=== PATIENT | male | born 1955 | race Caucasian/White ===

== ENCOUNTER → 2020-08-05 09:44 | Outpatient (BNVA) | payer MEDICARE, SELFPAY | PROVIDERS: PCP Internal Medicine; Referring Provider Internal Medicine; Visit Provider Internal Medicine Gastroenterology | DX: Z76.89 Persons encountering health services in other specified circumstances (principal) ==

== ENCOUNTER → 2020-08-08 10:10 | Outpatient (BNVA) | payer MEDICARE, SELFPAY | PROVIDERS: PCP Internal Medicine; Visit Provider Student in an Organized Health Care Education/Training Program | DX: Z13.89 Encounter for screening for other disorder (principal) | CPT/HCPCS: Q3014 ==

== ENCOUNTER → 2020-10-21 09:09 | Outpatient (BNVA) | payer MEDICARE, SELFPAY | PROVIDERS: PCP Internal Medicine; Visit Provider Internal Medicine Gastroenterology | CPT/HCPCS: Q3014 ==

== ENCOUNTER → 2021-06-12 11:19 | Outpatient (BNVA) | payer MEDICARE, SELFPAY | PROVIDERS: PCP Internal Medicine; Visit Provider Internal Medicine Gastroenterology | CPT/HCPCS: Q3014 ==

== ENCOUNTER → 2021-11-20 08:38 | Outpatient (BNVA) | payer MEDICARE, SELFPAY | PROVIDERS: PCP Internal Medicine; Visit Provider Internal Medicine Gastroenterology | DX: K86.1 Other chronic pancreatitis (principal); K55.9 Vascular disorder of intestine, unspecified | CPT/HCPCS: 99212 ==

== ENCOUNTER → 2022-05-21 08:44 | Outpatient (BNVA) | payer MEDICARE, SELFPAY | PROVIDERS: PCP Internal Medicine; Visit Provider Internal Medicine Gastroenterology | DX: R68.81 Early satiety (principal) | CPT/HCPCS: 99212 ==

== ENCOUNTER → 2022-07-13 08:42 | Outpatient (REF) | payer MEDICARE, SELFPAY ==
--- NOTE | ~2022-07-13 | NM_ITS ---
EXAMINATION: RADIONUCLIDE SOLID FOOD GASTRIC EMPTYING 4-HOUR STUDY CLINICAL INFORMATION: Early satiety. COMPARISON: No previous gastric emptying study is available for comparison. TECHNIQUE: A standard meal consisting of 4 oz of Egg Beaters brand equivalent tagged with 1 mCi Tc-99m Sulfur Colloid, 8 oz water and 2 slices of toast with jelly was administered orally to the patient. Images were obtained using a dual head gamma camera in the anterior and posterior projections over of the stomach immediately post ingestion and at hourly intervals up to 4 hours post ingestion. The anterior and posterior counts at each time interval were averaged using the geometric mean and expressed as percentage of the immediate post ingestion counts. FINDINGS: There is good visualization of activity in the stomach immediately post ingestion. As the study progresses, there is good clearance of activity from the stomach and visualization of progressively increasing small bowel activity. By the end of the study, there is almost no retention noted in the stomach. Retention in the stomach at each time interval was: 1 hour 78% (normal 37%-90%) 2 hours 60% (normal 30%-60%) 3 hours 24% 4 hours 2% (normal 0%-10%) NM/NM gastric emptying study IMPRESSION: Normal 4-hour solid food gastric emptying study.
== END ==
LOC: HO.NUCMED 08:42
PROVIDERS: Visit Provider Internal Medicine Gastroenterology
DX: R68.81 Early satiety (principal)
CPT/HCPCS: 78264; A9541

== ENCOUNTER → 2022-09-13 07:38 | Outpatient (REF) | payer MEDICARE, SELFPAY ==
--- NOTE | ~2022-09-13 | NM_ITS ---
EXAMINATION: NM PARATHYROID SCAN CLINICAL INFORMATION: Hyperparathyroidism. COMPARISON: None TECHNIQUE: A double radionuclide study of the thyroid bed region and upper chest in multiple projections was performed 4 hours after the oral administration of 0.963 microcuries I-123 sodium iodide/3 capsules and immediately following the intravenous administration of 30 mCi Tc-99m sestamibi. Repeat imaging was performed 2 hours later. The iodide images were electronically subtracted from the sestamibi images using different weighting factors. FINDINGS: On solder technician imaging, there is normal activity seen in both thyroid lobes with significant background activity. On iodide imaging, there is no activity seen in the thyroid gland due to patient being on levothyroxine for 38 years and was discontinued only for 5 days. NM/ME parathyroid IMPRESSION: 1. Suboptimal exam. No activity seen in thyroid gland with iodine capsule ingestion due to patient being on long-term levothyroxin. 2. On technetium imaging, there is significant activity seen in the thyroid gland and significant background activity seen as well. A parathyroid adenoma cannot be excluded on this exam. Recommend discontinuation of thyroxine for at least 3-4 weeks prior to performing a second exam. Other alternative with ultrasound imaging can be performed.
== END ==
LOC: HO.NUCMED 07:38
PROVIDERS: PCP Internal Medicine; Visit Provider Internal Medicine Endocrinology, Diabetes & Metabolism
DX: E21.2 Other hyperparathyroidism (principal)
CPT/HCPCS: 78070; A9500; A9516

== ENCOUNTER 2022-10-19 09:37 | Day surgery (SDC) | payer MEDICARE, SELFPAY ==
[2022-10-12 14:55] VITALS: BMI 28.8
[2022-10-19 09:55] VITALS: BMI 28.1
[2022-10-19 10:17] LABS: INTERNATIONAL NORM RATIO 1.1 (0.9-1.1); Prothrombin Time 12.3 SEC (10.0-13.1)
[2022-10-19] MEDS: Lactated Ringers 1,000 ML 50 ML IVCONT (10:30)
--- NOTE | 2022-10-19 10:44 | MHC.SHP ---
Pre-Procedural Eval Section A Date of Service: 10/19/22 Section B Chief Complaint: history of colonic polyps Relevant Family History (Specify if Yes): No Relevant Social History: Other (specify) (THC) Present Medications: see Short Stay Collaborative assessment Medical History: Significant History (PAd, CAD , chornic pancreatitis ) History of Previous Operations: Relevant previous surgery/procedure and date(s) (H/O angioplasty H/O Spinal surgery History of colonoscopy Hx of knee surgery) Allergies: Allergies Allergy/AdvReac Type Severity Reaction Status Date / Time amoxicillin [From Augmentin] Allergy Intermediate Nausea and Verified 10/12/22 14:44 Vomiting clavulanic acid Allergy Intermediate Nausea and Verified 10/12/22 14:44 [From Augmentin] Vomiting Review of Systems Sugical H&P ROS: Negative: Constitution, Cardiovascular, Respiratory, Neurological, Psychiatric, Hem-Onc, Allergic/Immunologic, Gastrointestinal, Genitourinary, Musculoskeletal, Integumentary, Endocrine and Eyes/Ears/Nose/Throat Exam Surgical H&P Exam: Normal: HEENT, Normal: Heart, Normal: Lungs, Normal: Extremities, Normal: Abdomen, Normal: Skin and Normal: Neurological Plan Diagnosis/Plan: Unchanged I have reviewed the history and physical and performed a pertinent physical examination on my patient. No changes have occurred unless specified. Time Spent With Patient Time: Total time managing care of this patient today ____ minutes.
--- NOTE | 2022-10-19 10:47 | P.CONAN_ITS ---
[facility] Active Problems Active Problems: All Active Problems (Updated 10/12/22 @ 15:40 by Lilia Jaimes RN) Chronic pancreatitis (Acute) Osteoporosis (Acute) Past Medical History Medical History A-fib CAD (coronary artery disease) Constipation Diabetes Elevated cholesterol GERD (gastroesophageal reflux disease) History of ischemic colitis HTN (hypertension) Hx of aortic aneurysm Hx of bladder cancer Hx of myocardial infarction Hx of supraventricular tachycardia Hypothyroidism Meniere's disease Missing teeth, acquired Nausea Osteoporosis PVD (peripheral vascular disease) Family History Family History Father Hx of cancer of lung Mother History of pancreatic cancer Surgical History Surgical History H/O angioplasty H/O Spinal surgery History of colonoscopy History of femoropopliteal bypass History of lumbar fusion History of transurethral resection of bladder tumor (TURBT) Hx of cystoscopy Hx of fusion of cervical spine Hx of knee surgery S/P peripheral artery angioplasty with stent placement S/P TURP (transurethral resection of prostate) Stented coronary artery History of Problems with Anesthesia: No Social History Social History Household Members: Other Household Members Other:: dog Are you a primary child caregiver private home to a significant other at home: No Do you presently have visiting nurse or other home services: No Alcohol intake: current Alcohol intake frequency: does not drink Patient Tobacco Use Status: Current everyday Tobacco user Tobacco use type: Cigarette Cigarettes Per Day: 3 Use of substances other than those prescribed or required for medical reasons: Yes Substance Use Type: Marijuana Substance Use Frequency: Occasionally Have you been hit, kicked, punched, or otherwise hurt by someone within the past year? If so, by whom?: No Are you DNR?: No Advance Directives: No Advance Directives Information Provided: Yes Advance Directives on File: No Recently lost weight without trying: No Poor oral hygiene: Yes (many missing teeth) Meds Allergies Allergy/AdvReac Type Severity Reaction Status Date / Time amoxicillin [From Augmentin] Allergy Intermediate Nausea and Verified 10/12/22 14:44 Vomiting clavulanic acid Allergy Intermediate Nausea and Verified 10/12/22 14:44 [From Augmentin] Vomiting Active Medications: Current Medications Lactated Ringer's (Lr) 1,000 mls @ 50 mls/hr IVCONT .Q20H JESS Last Admin: 10/19/22 10:30 Dose: 50 mls/hr Home Medications Medication Instructions Recorded Confirmed Last Taken Type atorvastatin 40 mg tablet 40 mg PO BEDTIME 08/08/20 10/12/22 Unknown History insulin aspar prt-insulin aspart sliding scale dose subcut 08/08/20 Unknown History 100 unit/mL (70-30) subcutaneous USEASDIRECTD soln (Novolog Mix 70-30 U-100 Insuln) insulin glargine 100 unit/mL (3 27 unit subcut BEDTIME 08/08/20 10/12/22 Unknown History mL) subcutaneous pen (Lantus Solostar U-100 Insulin) lorazepam 0.5 mg tablet (Ativan) 0.5 mg PO BEDTIME PRN Anxiety 08/08/20 10/12/22 Unknown History tamsulosin 0.4 mg capsule (Flomax) 0.4 mg PO DAILY@1700 08/08/20 10/12/22 Unknown History warfarin 5 mg tablet 5 mg PO DAILY 08/08/20 10/12/22 Unknown History finasteride 5 mg tablet 5 mg PO DAILY 11/20/21 10/12/22 Unknown History nystatin 100,000 unit/gram topical 1 appl topical BID 11/20/21 Unknown History cream diltiazem HCl 360 mg 360 mg PO BEDTIME 05/21/22 10/12/22 Unknown History capsule,extended release 24 hr empagliflozin 10 mg tablet 25 mg PO DAILY 05/21/22 10/12/22 Unknown History (Jardiance) levothyroxine 125 mcg tablet 150 mcg PO DAILY 05/21/22 10/12/22 Unknown History metoprolol tartrate 50 mg tablet 50 mg PO BID 05/21/22 10/12/22 Unknown History Viokase 10/12/22 10/12/22 Unknown History aspirin 81 mg tablet,delayed 81 mg PO DAILY 10/12/22 10/12/22 Unknown History release calcium citrate 200 mg (950 mg) 800 mg PO DAILY 10/12/22 10/12/22 Unknown History tablet enoxaparin 120 mg/0.8 mL mg 10/12/22 Unknown History subcutaneous syringe lisinopril 5 mg tablet mg 10/12/22 10/12/22 Unknown History ondansetron HCl 4 mg tablet 4 mg PO Q8H PRN Nausea 10/12/22 10/12/22 Unknown History Exam Exam Date and Time: October 19, 2022 1047 Height,Weight and Vital Signs: Height 5 ft 8 in Weight 83.915 kg Pertinent Lab Results Pertinent Lab Results: Laboratory Tests 10/19/22 09:53 PT 12.3 INR 1.1 Airway Mallampati Class: III (Missing left upper incisor) TM Dist: >3cm Neck ROM: Full Loose/Missing/Broken Teeth: Yes and Upper Heart: irreg irregular rhythm Lungs: CTA Assessment and Plan Assessment Anesthesia Assessment: Anesthesia Plan Discussed and Chart Reviewed Final Anesthetic Review History of Problems with Anesthesia: No NPO: Yes ASA Class: III Final Preanesthetic Review: Meds/Allgs Chart Reviewed, Consent Obtained/Reviewed and Anes Risks/Benef Reviewed Patient Risk: Intermediate Procedure Risk: Low Anesthetic Plan Anesthetic Plan: MAC: Disposition: Standard PACU
--- NOTE | 2022-10-19 10:58 | P.OP_ITS ---
Operative Note Operative Note Date of Service: 10/19/22 Narrative: Operative Information Procedure Description: Colonoscopy Indication: hx of colon polyps Anesthesia: MAC COLONOSCOPY Instrument: Olympus variable stiffness pediatric scope 190L Colonoscopy Monitoring: Vital signs and clinical assessment, continuous EKG monitoring, Pulse oximetry, Carbon Dioxide monitoring and blood pressure monitoring were done throughout the procedure. Colon withdrawal time was 13 minutes. Procedure: The patient was placed in the left lateral decubitis position and pre-procedure medications were administered. After a digital rectal examination of the ano-rectum, the video colonoscope was inserted into the rectum and advanced through the colon to the cecum/TI. The colonoscope was slowly withdrawn in a retrograde panoramic fashion and the colon mucosa was carefully examined including a retroflexed view of the rectum. Findings and interventions are described below. Procedure Difficulty: moderate Findings: Terminal Ileum-normal Cecum:normal Ascending Colon: few diverticula seen Transverse Colon -normal Descending Colon:normal Sigmoid Colon: moderate severe diverticulosis Rectum: Retroflexion with medium sized internal hemorrhoids, grade I, 8-10 mm sessile polyp removed with cold snare Anorectum - normal Colon preparation: [place] Bowel Preparation Scale Right colon; 2 Transverse colon: 2 Left colon; 1-2 (0 = Unprepared colon segment with mucosa not seen due to solid stool that cannot be cleared. 1 = Portion of mucosa of the colon segment seen, but other areas of the colon segment not well seen due to staining, residual stool and/or opaque liquid. 2 = Minor amount of residual staining, small fragments of stool and/or opaque liquid, but mucosa of colon segment seen well. 3 = Entire mucosa of colon segment seen well with no residual staining, small fragments of stool or opaque liquid) Impression and Post Procedure Diagnosis: polyps internal hemorrhoids diverticular disease Plan: High fiber diet leaflet Avoid straining at stool, epsom salts and sitz bath, anusol supps or cream Repeat Colonoscopy in 3-5 years due to fair left sided prep or earlier if clinically indicated Above findings were reviewed with the patient and relevant handouts were provided if indicated.
[2022-10-19 11:35] VITALS: BP 101/62; PULSE 60; RESP 20; TEMP 36.2; O2SAT 97
[2022-10-19 11:50] VITALS: BP 101/62; PULSE 61; RESP 16; TEMP 36.2; O2SAT 95
[2022-10-20 06:53] LABS: Glucose, Whole Blood 137 mg/dL (60-115)
== END 2022-10-19 12:24 | disposition home or self-care (01) ==
PROVIDERS: Anesthesiology; PCP Internal Medicine; Visit Provider Internal Medicine Gastroenterology
PROC: 0DJD8ZZ Inspection of Lower Intestinal Tract, Via Natural or Artificial Opening Endoscopic (ICD-10-PCS; CPT 45378; principal; 2022-10-19 11:00)
DX: Z12.11 Encounter for screening for malignant neoplasm of colon (principal); Z86.010 Personal history of colon polyps; K62.1 Rectal polyp; K57.30 Diverticulosis of large intestine without perforation or abscess without bleeding; K64.0 First degree hemorrhoids; K59.00 Constipation, unspecified; K86.1 Other chronic pancreatitis; Z85.51 Personal history of malignant neoplasm of bladder; I73.9 Peripheral vascular disease, unspecified; I25.10 Atherosclerotic heart disease of native coronary artery without angina pectoris; Z98.61 Coronary angioplasty status; I25.2 Old myocardial infarction; I48.91 Unspecified atrial fibrillation; I10 Essential (primary) hypertension; M81.0 Age-related osteoporosis without current pathological fracture; E11.9 Type 2 diabetes mellitus without complications; Z79.4 Long term (current) use of insulin; Z79.01 Long term (current) use of anticoagulants; Z79.899 Other long term (current) drug therapy; Z88.1 Allergy status to other antibiotic agents; Z98.890 Other specified postprocedural states; F17.210 Nicotine dependence, cigarettes, uncomplicated; F12.90 Cannabis use, unspecified, uncomplicated
CPT/HCPCS: 45385; 36415; 82947; 85610; 88305

== ENCOUNTER → 2022-11-01 11:05 | Outpatient (BNVA) | payer MEDICARE, SELFPAY | PROVIDERS: PCP Internal Medicine; Visit Provider Internal Medicine Gastroenterology | DX: D12.6 Benign neoplasm of colon, unspecified (principal); K57.30 Diverticulosis of large intestine without perforation or abscess without bleeding; Z98.890 Other specified postprocedural states | CPT/HCPCS: 99212 ==

== ENCOUNTER 2023-02-28 10:39 | Outpatient (REF) | payer MEDICARE, SELFPAY ==
[2023-02-28 13:12] LABS: Alanine Aminotransferase 31 U/L (0-40); Alkaline Phosphatase 89 U/L (39-117); Aspartate Amino Transferase 23 U/L (5-37); Bilirubin Total 0.6 mg/dL (0.0-1.0); Blood Urea Nitrogen 19 mg/dL (9-16); Calcium 9.4 mg/dL (8.4-10.2); Estimated Glomerular Filt Rate > 60; Total Protein 7.3 g/dL (6.5-8.0)
[2023-02-28 13:14] LABS: Glucose Random 377 mg/dL (60-115)
[2023-02-28 13:15] LABS: Anion Gap 13 (12-20); Carbon Dioxide 23 mmol/L (22-29); Chloride 102 mmol/L (96-108); Potassium 4.2 mmol/L (3.3-5.1); Sodium 134 mmol/L (135-145)
[2023-02-28 13:17] LABS: Ferritin 112 ng/mL (20-250); Vitamin D 25-OH Total 42.6 ng/mL (>30)
[2023-03-04 11:13] LABS: Vitamin B1 17 nmol/L (8-30)
[2023-03-04 14:08] LABS: Vitamin B6 4.8 ng/mL (2.1-21.7)
[2023-03-04 19:03] LABS: Vitamin A 34 mcg/dL (38-98)
[2023-03-08 15:54] LABS: Vitamin B5 (Pantothenic Acid) 45 ng/mL (<275)
[2023-03-08 17:38] LABS: Nicotinamide 28 ng/mL; Vit B3 - Nicotinic Acid <20 ng/mL
== END 2023-02-28 10:40 | disposition home or self-care (01) ==
LOC: HO.LAB 10:39
PROVIDERS: PCP Internal Medicine; Visit Provider Internal Medicine Gastroenterology
DX: K86.1 Other chronic pancreatitis (principal); K75.81 Nonalcoholic steatohepatitis (NASH); E46 Unspecified protein-calorie malnutrition; F17.200 Nicotine dependence, unspecified, uncomplicated
CPT/HCPCS: 36415; 80053; 82180; 82306; 82607; 82728; 82746; 83735; 84207; 84425; 84446; 84590; 84591; 84597; 84630; 85025; 99212

== ENCOUNTER 2023-09-05 11:04 | Outpatient (AMB) | payer MEDICARE, SELFPAY ==
--- NOTE | 2023-09-05 11:29 | MHC.OFFVIS ---
Intake Vital Signs 09/05/23 11:30 Height 5 ft 8 in Weight 191 lb 12.835 oz BMI 29.2 BP 146/81 H Blood Pressure Location Lt brachial Position Sitting Pulse 61 Intake Visit Reasons: 6 mn follow up Intake Note: Bruce presents in the office as a 6 month follow up. CC: No concerns at this time. 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: No Allergies amoxicillin [From Augmentin] Allergy (Intermediate, Verified 09/05/23 11:31) Nausea and Vomiting clavulanic acid [From Augmentin] Allergy (Intermediate, Verified 09/05/23 11:31) Nausea and Vomiting HPI 6 mn follow up HPI Details 01bvniwoxhusmcbqzrtnqttmbawfbdwjftapdqffvzymceuynhpgywufpokejrclgjjjezgdhbcztqeedutqphipcewshchfafyoghropetmnaenicwydrufzsudlenlikejoujqxyelzoijdyowlhpoutcyixrvqvdzqdukikutmpdjbaxvxeprsrsnrnxjstywbmgggvxxpplvxgzbxzsqlvhfsrglduv-dhwq-qdj gentleman w/ PAd, CAD being seen for follow-up for chronic pancreatitis and ischemic colitis RECAP: sx going on for 4-5 yrs labs: ca-19-9 elevated, CEA-elevated, Pnac gene tests neg, igg4 was low, celiac panel neg, vit A low, Vit D normal, stool elastase 256 MRI 05/16- multpile panc cysts, no masses CTA: 08/2018- acute on chronic panc MRI: 10/2018- stable cysts of pancreas, possible galllstone, stable fullness adrenal gland US: 04/2019- F2-3 on elastography, distal aortic plaque referred for EUS to Dr Juarez- not felt to be necessary has been on panc supplements and zofran for symptoms smoker colonoscopy 2016 with polyps removed still has GB in place I referred to rheum due to osteoporosis, and he was commenced on fosamax LFT noted to be abnormal he was having ongoing abdo pain can be on right or left side nausea most days unsure on how to take panc supplements food was making the pain worse, mild reflux symptoms one flloating stool daily says has not had alcohol for 45 years, etiology of pancreatitis is uncertain he had another apptm at [facility] for another opinon regards EUS mother of biliary cancer was still smoking, 3-4 cigs/day he was prescribed narcs and he is hesitant to take, due to being told he may have SOD. He saw Dr Pan at [facility] and was treated with rifaximin due to bloating which helped he also changed to viokase 20 K units 2 caps with meals, he stopped rosibel pep, wasn;t convinced it was helping trila of reglan due to possible gastroparesis, he thinks it is helping him by giving him more energy he was doing well up till few days ago, had pain in right flank, like a knife into the back, mild nausea no diarrhea, stool is formed. he had hematuria and seeing urologist he tried motegrity and he felt it didn;t help CT chest [facility] 01/2020--heavy coronary calcification, chronic lung disease, pulm nodules, rec repeat 12 months he si following up with rheum for osteporosis he is following up with urology for bladder cancer went thru course of BCG and mitomycin He did have suspected ischemic colitis and was admitted to [facility] The Ischemic colitis, was prob 2/2 constipation, maybe low flow state (seeing vascular at [facility] and gets periodic dopplers), or from a-fib was advised to cont linalcotide but take daily or every other day, adding fiber supplement, and increase fluid intake he had clear cystoscopy for his bladder ca he had [address] for his parathyroid, which was negative [facility] 07/20-- normal colonoscopy 09/2022--- polyp removed--perineuroma, diverticulosis noted INTERIM: he is waiting for prostate surgery also he had stopped smokign but went to smoking a few cigs every day v occ nausea stools are bulky occ blood in the stool he has not been taking miraalx recently either EXAM: GENERAL: The patient is well developed and nontoxic. VITAL SIGNS:see workflow HEENT: Nonicteric sclerae, PERRLA, EOMI. Oropharynx clear. Moist mucous membranes. Conjunctivae appear well perfused. No thyroid mass. CHEST: Chest wall is nontender. HEART: Regular rate and rhythm without murmurs. LUNGS: Clear to auscultation bilaterally. ABDOMEN: Soft, positive bowel sounds, nontender, no organomegaly.no flank tenderness SKIN: cuts on hands, swelling, with some redness no crepitus, NEUROLOGIC: Cranial nerves II-XII intact without motor/sensory deficit. Psych--nml affect Assessments 1. chronic nausea, due to chronic pancreatitis and medications--better controlled now 2. chronic panc--stable, with occasional flare ups, smoking again after stopping for a good while PLAN 1/ advised on smoking abstention again and bad effects on pancreas-- 2/repeat colonoscopy in 3-4 yrs or so 3/ can cont with creon open capsules and mix with food--sprinkle 4/ check labs incl nutritional screen next apptm 5/ restart miralax and add colace PFSH Medical History Hx of supraventricular tachycardia Meniere's disease Hypothyroidism Hx of aortic aneurysm Hx of myocardial infarction CAD (coronary artery disease) Constipation Diabetes GERD (gastroesophageal reflux disease) Elevated cholesterol PVD (peripheral vascular disease) HTN (hypertension) Missing teeth, acquired Hx of bladder cancer Nausea History of ischemic colitis A-fib Osteoporosis Surgical History Stented coronary artery S/P TURP (transurethral resection of prostate) History of lumbar fusion Hx of fusion of cervical spine Hx of cystoscopy History of transurethral resection of bladder tumor (TURBT) S/P peripheral artery angioplasty with stent placement History of femoropopliteal bypass Hx of knee surgery H/O angioplasty H/O Spinal surgery History of colonoscopy Family History Father Hx of cancer of lung Mother History of pancreatic cancer Social History Household Members: Other Household Members Other:: dog Are you a primary furnace caretaker to a significant other at home: No Do you presently have visiting nurse or other home services: No Alcohol intake: current Alcohol intake frequency: does not drink Patient Tobacco Use Status: Current everyday Tobacco user Tobacco use type: Cigarette Cigarettes Per Day: 3 Substance Use Type: Marijuana Physical Exam Vital Signs: Last Vital Signs Pulse 61 09/05/23 11:30 BP 146/81 H 09/05/23 11:30 BMI result Body Mass Index 29.2 Assessment & Plan Assessment & Plan (1) Chronic pancreatitis: Code(s): K86.1 - Other chronic pancreatitis Plan: PLAN 1/ advised on smoking abstention again and bad effects on pancreas-- 2/repeat colonoscopy in 3-4 yrs or so 3/ can cont with creon open capsules and mix with food--sprinkle 4/ check labs incl nutritional screen next apptm 5/ restart miralax and add colace Coding Level of Care Code Est Pt Level 3 (64703) Diagnoses Chronic pancreatitis K86.1
[2023-09-05 11:30] VITALS: BP 146/81; PULSE 61; BMI 29.2
== END 2023-09-05 12:43 | disposition home or self-care (01) ==
PROVIDERS: PCP Internal Medicine; Visit Provider Internal Medicine Gastroenterology
DX: K86.1 Other chronic pancreatitis (principal)
CPT/HCPCS: 99213

== ENCOUNTER → 2023-09-05 11:04 | Outpatient (BNVA) | payer MEDICARE, SELFPAY | PROVIDERS: PCP Internal Medicine; Visit Provider Internal Medicine Gastroenterology | DX: K86.1 Other chronic pancreatitis (principal) | CPT/HCPCS: 99212 ==

== ENCOUNTER 2023-12-28 09:40 | Outpatient (AMB) | payer MEDICARE, SELFPAY ==
--- NOTE | 2023-12-28 09:54 | A.OFFVIS_ITS ---
Vital Signs 12/28/23 09:59 Height 5 ft 8 in Weight 186 lb BMI 28.3 BP 147/77 H Blood Pressure Location Lt brachial Position Sitting Respiration 18 Pulse 73 Pulse Source Pulse Oximeter Pulse Oximetry (%) 99 Oxygen Delivery Method Room Air Intake Visit Reasons: Left Leg Pain Allergies amoxicillin [From Augmentin] Allergy (Intermediate, Verified 12/28/23 09:53) Nausea and Vomiting clavulanic acid [From Augmentin] Allergy (Intermediate, Verified 12/28/23 09:53) Nausea and Vomiting HPI Comments Details: Bruce is a very pleasant 68-year-old male who presents to the office today for evaluation and management of his left lower extremity numbness. Patient reports that he has been suffering with numbness and weakness of the left foot/ankle for last 9 months. He denies any inciting injury. He states this happens with walking and resolves with rest. Patient has a significant history of vascular compromise, he has routine ultrasound imaging. Was told at his most recent vascular appointment that me stenosis has progressed and is much worse. However they did not believe that the pins and needles and tingling to the left foot were secondary to the vascular compromise. Patient denies lower back pain or radiculopathy symptoms, patient does have history of lumbar fusion. He denies red flag symptoms including loss of bowel, bladder or saddle anesthesia. Patient does report that the foot numbness is significant with walking, at times he will drag his foot and he is afraid of falling. Patient also endorses right shoulder pain, he has done physical therapy without improvement of his symptoms. He is on anticoagulants therefore an unable to take NSAIDs. He has had steroid injections to the shoulder without improvement of his pain. Patient has upcoming appointment planned with orthopedics to discuss surgery. He was told that that his last option. Left foot pain today is rated as a 2/10, intermittent and worse during the day. In terms of muscle damage condition is described as cramping, numb, tingling, pins and needles. Pain is negatively impacting patient's enjoyment of life, general activity, mood, recreational activities and walking. [facility] Medical History Hx of supraventricular tachycardia Meniere's disease Hypothyroidism Hx of aortic aneurysm Hx of myocardial infarction CAD (coronary artery disease) Constipation Diabetes GERD (gastroesophageal reflux disease) Elevated cholesterol PVD (peripheral vascular disease) HTN (hypertension) Missing teeth, acquired Hx of bladder cancer Nausea History of ischemic colitis A-fib Osteoporosis Surgical History Stented coronary artery S/P TURP (transurethral resection of prostate) History of lumbar fusion Hx of fusion of cervical spine Hx of cystoscopy History of transurethral resection of bladder tumor (TURBT) S/P peripheral artery angioplasty with stent placement History of femoropopliteal bypass Hx of knee surgery H/O angioplasty H/O Spinal surgery History of colonoscopy Family History Father Hx of cancer of lung Mother History of pancreatic cancer Social History Household Members: Other Household Members Other:: dog Are you a primary career development specialist to a significant other at home: No Do you presently have visiting nurse or other home services: No Alcohol intake: current Alcohol intake frequency: does not drink Patient Tobacco Use Status: Current everyday Tobacco user Tobacco use type: Cigarette Cigarettes Per Day: 3 Substance Use Type: Marijuana Review of Systems Const All systems reviewed & are unremarkable except as noted in HPI and below Physical Exam Vital Signs: Last Vital Signs Pulse 73 12/28/23 09:59 Resp 18 12/28/23 09:59 BP 147/77 H 12/28/23 09:59 Pulse Ox 99 12/28/23 09:59 Oxygen Delivery Method Room Air 12/28/23 09:59 BMI result Body Mass Index 28.3 General: awake, alert, oriented. Answers questions appropriately. Fully engaged in examination. Skin: warm, dry, intact HEENT: Normocephalic. Hearing intact. Cardiac: External chest normal in appearance. Respiratory: No cough, audible wheezing or stridor. Abdomen: without gross distension. MS: No obvious swelling or deformities. Left foot: Light touch sensation intact. [place] warm and dry. Cap refill intact. Range of motion intact. DTRs intact Right shoulder: Pain with overhead reach, unable to perform behind the back reach. Neurological: Oriented to person, place, time and situation. Thought process intact. No gait abnormalities appreciated. Psychiatric: Appropriate mood and affect. Good judgment and insight. Assessment & Plan Assessment & Plan (1) Paresthesia of left foot: Code(s): R20.2 - Paresthesia of skin Category: Medical (2) Right shoulder pain: Code(s): M25.511 - Pain in right shoulder Category: Medical Plan Bruce is a very pleasant 68-year-old male who presented to the office today for evaluation and management of his left foot paresthesia and right shoulder pain. EMG ordered. Discussed at length patient's diagnoses and treatment options. For his right shoulder pain patient has exhausted conservative therapy including PT, aawj-zlm-xwdxtyz medications, prescription medications and steroid injections. Will plan for fluoroscopy guided right diagnostic suprascapular nerve block with local anesthetic. If patient reports good results with the diagnostic injection will plan for right suprascapular sprint PNS. Informational pamphlet was provided today. All questions and concerns were answered, patient agrees with the plan Follow-up after EMG, sooner if needed Orders: Orders NE electromyogram (EMG) Today M25.511 - Pain in right shoulder, R20.2 - Paresthesia of skin Coding Level of Care Code New Pt Level 4 (99930) Diagnoses Paresthesia of left foot R20.2 Right shoulder pain M25.511
[2023-12-28 09:59] VITALS: BP 147/77; PULSE 73; RESP 18; O2SAT 99; BMI 28.3
== END 2023-12-28 10:18 | disposition home or self-care (01) ==
PROVIDERS: PCP Internal Medicine; Visit Provider Registered Nurse Emergency
DX: R20.2 Paresthesia of skin (principal); M25.511 Pain in right shoulder
CPT/HCPCS: 99204

== ENCOUNTER → 2023-12-28 09:40 | Outpatient (BNVA) | payer MEDICARE, SELFPAY | PROVIDERS: PCP Internal Medicine; Visit Provider Registered Nurse Emergency | DX: R20.2 Paresthesia of skin (principal); M25.511 Pain in right shoulder; M79.605 Pain in left leg | CPT/HCPCS: 99202 ==

== ENCOUNTER 2024-01-11 14:49 | Outpatient (REF) | payer MEDICARE, SELFPAY ==
--- NOTE | 2024-01-11 14:53 | EMG_ITS ---
Chief complaint: About 2 years of left leg pain, numbness in left foot, weakness. On exam, noted left footdrop with dorsiflexion and eversion weakness. History of L5-S1 laminectomy. History of bladder cancer status post chemotherapy. History of PVD. Reason for referral: Evaluate for radiculopathy versus neuropathy Referred by: Jasmyn Garcia NP Procedure done: Left lower extremity NCS/EMG Precautions and/or limitations: Previous lumbar laminectomy The limb temperature was monitored continuously and remained between 32-36 degrees C during the performance of the NCS. Nerve Conduction Studies Anti Sensory Summary Table ?Stim Site NR Onset (ms) Norm Onset (ms) Peak (ms) Norm Peak (ms) O-P Amp (?V) Norm O-P Amp Site1 Site2 Delta-0 (ms) Dist (cm) Dennis (m/s) Norm Dennis (m/s) Left Sural Anti Sensory (Lat Mall) Calf ? 1.3 3.9 <4.0 5.4 >5.0 Calf Lat Mall 1.3 14.0 108 Motor Summary Table ?Stim Site NR Onset (ms) Norm Onset (ms) O-P Amp (mV) Norm O-P Amp iAmp (mV) Amp (1st) (%) Site1 Site2 Delta-0 (ms) Dist (cm) Dennis (m/s) Norm Dennis (m/s) Left Peroneal Motor (Ext Dig Brev) Ankle ? 4.6 <4.0 2.7 >2.5 3.0 100.0 Ankle Ext Dig Brev 4.6 0.0 B Fib ? 9.6 0.8 1.0 29.6 B Fib Ankle 5.0 32.0 64 >40 Poplt ? 13.8 2.4 2.8 88.9 Poplt B Fib 4.2 5.0 12 >40 Left Peroneal TA Motor (Tib Ant) Fib Head ? 4.0 <4.2 2.5 2.9 100.0 Fib Head Tib Ant 4.0 0.0 Poplit ? 5.0 <5.7 2.6 3.1 104.0 Poplit Fib Head 1.0 4.0 40 >40.5 Left Tibial Motor (Abd Ventura Brev) Ankle ? 4.5 <5 5.8 >2.5 6.7 100.0 Ankle Abd Ventura Brev 4.5 0.0 Knee ? 14.1 5.3 6.4 91.4 Knee Ankle 9.6 40.0 42 >40 EMG ?Side Muscle Nerve Root Ins Act Fibs Psw Amp Dur Poly Recrt Int Pat Comment Left AbdHallucis MedPlantar S1-2 Nml Nml Nml Nml Nml 0 Nml Complete Left AntTibialis Dp Br Peron L4-5 Nml Nml Nml Nml Nml 0 Nml Complete Left MedGastroc Tibial S1-2 Nml Nml Nml Nml Nml 0 Nml Complete Left VastusMed Femoral L2-4 Nml Nml Nml Nml Nml 0 Nml Complete Left Peroneus Long Sup Br Peron L5-S1 Nml Nml Nml Nml Nml 0 Nml Complete FINDINGS: Left peroneal nerve showed prolonged distal latency, acceptable amplitude but slow conduction velocity across fibular neck. All other nerves tested were within normal. Concentric needle EMG was performed in selected muscles of the left lower extremity. Study did not reveal signs of electric abnormalities as shown in the table below. IMPRESSION: 1. This is an abnormal study. 2. 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 3. There is no electrodiagnostic evidence for tibial neuropathy. lumbosacral plexopathy, lumbar radiculopathy, or peripheral neuropathy. CLINICAL COMMENT: Consider left AFO for left footdrop, to avoid falls. Thank you for your kind referral. Marleny Leos MD, KALYN Board Certified, [place] [employer] and Rehabilitation (ABPMR) Board Certified, [place] Board [employer] Electrodiagnostic Medicine (ABEM) [place] [id number] [facility]
== END 2024-01-11 14:50 | disposition home or self-care (01) ==
LOC: HO.NEURO 14:49
PROVIDERS: PCP Internal Medicine; Visit Provider Registered Nurse Emergency
DX: R20.2 Paresthesia of skin (principal); M25.511 Pain in right shoulder
CPT/HCPCS: 95886; 95908

== ENCOUNTER → 2024-01-11 14:53 | Outpatient (BNV) | payer MEDICARE, SELFPAY | PROVIDERS: PCP Internal Medicine; Visit Provider Physical Medicine & Rehabilitation | DX: R20.2 Paresthesia of skin (principal); M25.511 Pain in right shoulder | CPT/HCPCS: 95886; 95908 ==

== ENCOUNTER 2024-01-13 13:47 | Outpatient (AMB) | payer MEDICARE, SELFPAY ==
[2024-01-13 14:17] VITALS: BP 141/88; PULSE 80; RESP 18; O2SAT 95; BMI 27.7
--- NOTE | 2024-01-13 14:17 | A.OFFVIS_ITS ---
Vital Signs 01/13/24 14:17 Height 5 ft 8 in Weight 182 lb 4 oz BMI 27.7 BP 141/88 H Blood Pressure Location Lt brachial Position Sitting Respiration 18 Pulse 80 Pulse Source Pulse Oximeter Pulse Oximetry (%) 95 Oxygen Delivery Method Room Air Comment Room 4 Intake Visit Reasons: EMG FOLLOW UP Allergies amoxicillin [From Augmentin] Allergy (Intermediate, Verified 12/28/23 09:53) Nausea and Vomiting clavulanic acid [From Augmentin] Allergy (Intermediate, Verified 12/28/23 09:53) Nausea and Vomiting HPI Comments Details: Patient presents to the office today for follow up, review of recent EMG. EMG reviewed, results as per below Patient continues with numbness, tingling of the left ankle and foot. He states if anything he feels like this has gotten worse since his last visit. Patient also continues with right shoulder pain. He canceled his orthopedic follow-up and would like to proceed with suprascapular Sprint trial as previously discussed. Bruce is a very pleasant 68-year-old male who presents to the office today for evaluation and management of his left lower extremity numbness. Patient reports that he has been suffering with numbness and weakness of the left foot/ankle for last 9 months. He denies any inciting injury. He states this happens with walking and resolves with rest. Patient has a significant history of vascular compromise, he has routine ultrasound imaging. Was told at his most recent vascular appointment that me stenosis has progressed and is much worse. However they did not believe that the pins and needles and tingling to the left foot were secondary to the vascular compromise. Patient denies lower back pain or radiculopathy symptoms, patient does have history of lumbar fusion. He denies red flag symptoms including loss of bowel, bladder or saddle anesthesia. Patient does report that the foot numbness is significant with walking, at times he will drag his foot and he is afraid of falling. Patient also endorses right shoulder pain, he has done physical therapy without improvement of his symptoms. He is on anticoagulants therefore an unable to take NSAIDs. He has had steroid injections to the shoulder without improvement of his pain. Patient has upcoming appointment planned with orthopedics to discuss surgery. He was told that that his last option. Left foot pain today is rated as a 2/10, intermittent and worse during the day. In terms of muscle damage condition is described as cramping, numb, tingling, pins and needles. Pain is negatively impacting patient's enjoyment of life, general activity, mood, recreational activities and walking. [facility] Medical History Hx of supraventricular tachycardia Meniere's disease Hypothyroidism Hx of aortic aneurysm Hx of myocardial infarction CAD (coronary artery disease) Constipation Diabetes GERD (gastroesophageal reflux disease) Elevated cholesterol PVD (peripheral vascular disease) HTN (hypertension) Missing teeth, acquired Hx of bladder cancer Nausea History of ischemic colitis A-fib Osteoporosis Surgical History Stented coronary artery S/P TURP (transurethral resection of prostate) History of lumbar fusion Hx of fusion of cervical spine Hx of cystoscopy History of transurethral resection of bladder tumor (TURBT) S/P peripheral artery angioplasty with stent placement History of femoropopliteal bypass Hx of knee surgery H/O angioplasty H/O Spinal surgery History of colonoscopy Family History Father Hx of cancer of lung Mother History of pancreatic cancer Social History Household Members: Other Household Members Other:: dog Are you a primary school childcare attendant to a significant other at home: No Do you presently have visiting nurse or other home services: No Alcohol intake: current Alcohol intake frequency: does not drink Patient Tobacco Use Status: Current everyday Tobacco user Tobacco use type: Cigarette Cigarettes Per Day: 3 Substance Use Type: Marijuana Review of Systems Const All systems reviewed & are unremarkable except as noted in HPI and below Physical Exam Vital Signs: Last Vital Signs Pulse 80 01/13/24 14:17 Resp 18 01/13/24 14:17 BP 141/88 H 01/13/24 14:17 Pulse Ox 95 01/13/24 14:17 Oxygen Delivery Method Room Air 01/13/24 14:17 BMI result Body Mass Index 27.7 General: awake, alert, oriented. Answers questions appropriately. Fully engaged in examination. Skin: warm, dry, intact HEENT: Normocephalic. Hearing intact. Cardiac: External chest normal in appearance. Respiratory: No cough, audible wheezing or stridor. Abdomen: without gross distension. MS: No obvious swelling or deformities. Left foot: Light touch sensation intact. [place] warm and dry. Cap refill intact. Range of motion intact. DTRs intact Right shoulder: Pain with overhead reach, unable to perform behind the back reach. Neurological: Oriented to person, place, time and situation. Thought process intact. No gait abnormalities appreciated. Psychiatric: Appropriate mood and affect. Good judgment and insight. Results Reviewed Results Reviewed: 01/11/24 FINDINGS: Left peroneal nerve showed prolonged distal latency, acceptable amplitude but slow conduction velocity across fibular neck. All other nerves tested were within normal. Concentric needle EMG was performed in selected muscles of the left lower extremity. Study did not reveal signs of electric abnormalities as shown in the table below. IMPRESSION: 1. This is an abnormal study. 2. 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 3. There is no electrodiagnostic evidence for tibial neuropathy. lumbosacral plexopathy, lumbar radiculopathy, or peripheral neuropathy. Assessment & Plan Assessment & Plan (1) Paresthesia of left foot: Code(s): R20.2 - Paresthesia of skin Category: Medical (2) Right shoulder pain: Code(s): M25.511 - Pain in right shoulder Category: Medical Plan Patient presented to the office today for follow-up of his left foot paresthesia and right shoulder pain. EMG reviewed, results as per above. Discussed at length patient's diagnoses and treatment options. Will schedule for left peroneal hydrodissection at fibular neck, ultrasound- guided local anesthetic. For his right shoulder pain patient has exhausted conservative therapy including PT, [id number] medications, prescription medications and steroid injections. C/W plan for ultrasound-guided right suprascapular NB with local anesthetic with plan for sprint PNS. Informational pamphlet was provided at last visit. All questions and concerns were answered, patient agrees with the plan Follow-up after procedure, sooner if needed Coding Level of Care Code Est Pt Level 3 (63719) Diagnoses Paresthesia of left foot R20.2 Right shoulder pain M25.511
== END 2024-01-13 14:39 | disposition home or self-care (01) ==
PROVIDERS: PCP Internal Medicine; Visit Provider Registered Nurse Emergency
DX: R20.2 Paresthesia of skin (principal); M25.511 Pain in right shoulder
CPT/HCPCS: 99213

== ENCOUNTER → 2024-01-13 13:47 | Outpatient (BNVA) | payer MEDICARE, SELFPAY | PROVIDERS: PCP Internal Medicine; Visit Provider Registered Nurse Emergency | DX: R20.2 Paresthesia of skin (principal); M25.511 Pain in right shoulder | CPT/HCPCS: 99212 ==

== ENCOUNTER 2024-02-01 08:03 | Outpatient (AMB) | payer MEDICARE, SELFPAY ==
--- NOTE | 2024-02-01 08:11 | A.OFFVIS_ITS ---
Vital Signs 02/01/24 08:12 Height 5 ft 8 in Weight 185 lb BMI 28.1 BP 143/74 H Blood Pressure Location Lt brachial Position Sitting Respiration 14 Pulse 61 Pulse Source Pulse Oximeter Pulse Oximetry (%) 98 Oxygen Delivery Method Room Air Intake Visit Reasons: right suprascapular NB Allergies amoxicillin [From Augmentin] Allergy (Intermediate, Verified 02/01/24 08:13) Nausea and Vomiting clavulanic acid [From Augmentin] Allergy (Intermediate, Verified 02/01/24 08:13) Nausea and Vomiting Medication List - Last Reconciled 02/01/24 by Stacey Styles LPN ascorbic acid (vitamin C) 1 g PO DAILY aspirin 81 mg PO DAILY atorvastatin 40 mg PO BEDTIME calcium citrate 800 mg PO DAILY diltiazem HCl CD 360 mg PO BEDTIME docusate sodium (Colace) 100 mg PO BID empagliflozin (Jardiance) 25 mg PO DAILY famotidine 40 mg PO BEDTIME finasteride 5 mg PO DAILY insulin asp prt-insulin aspart 100 unit/mL (70-30) (Novolog Mix 70-30 U-100 Insuln) sliding scale doses subcut USEASDIRECTD insulin glargine (Lantus Solostar U-100 Insulin) 27 units subcut BEDTIME levothyroxine 150 mcg PO DAILY linaclotide 72 mcg PO DAILY 30 days owmcfq-lbxwksma-tonlwdr 20,880-78,300- 78,300 unit (Viokace) tabs PO lisinopril mg lorazepam (Ativan) 0.5 mg PO BEDTIME PRN metoprolol tartrate 50 mg PO BID ondansetron HCl 4 mg PO Q8H PRN tamsulosin (Flomax) 0.4 mg PO DAILY@1700 warfarin 5 mg PO DAILY HPI HPI right suprascapular NB: Details: 68-year-old male who presents today to the office for right suprascapular nerve block. Patient presents for scheduled procedure. Denies any recent cough, cold, infection, fever or other significant changes in medical history since last office visit. [facility] Medical History Hx of supraventricular tachycardia Meniere's disease Hypothyroidism Hx of aortic aneurysm Hx of myocardial infarction CAD (coronary artery disease) Constipation Diabetes GERD (gastroesophageal reflux disease) Elevated cholesterol PVD (peripheral vascular disease) HTN (hypertension) Missing teeth, acquired Hx of bladder cancer Nausea History of ischemic colitis A-fib Osteoporosis Surgical History Stented coronary artery S/P TURP (transurethral resection of prostate) History of lumbar fusion Hx of fusion of cervical spine Hx of cystoscopy History of transurethral resection of bladder tumor (TURBT) S/P peripheral artery angioplasty with stent placement History of femoropopliteal bypass Hx of knee surgery H/O angioplasty H/O Spinal surgery History of colonoscopy Family History Father Hx of cancer of lung Mother History of pancreatic cancer Social History Household Members: Other Household Members Other:: dog Are you a primary assisted living care manager to a significant other at home: No Do you presently have visiting nurse or other home services: No Alcohol intake: current Alcohol intake frequency: does not drink Patient Tobacco Use Status: Current everyday Tobacco user Tobacco use type: Cigarette Cigarettes Per Day: 3 Substance Use Type: Marijuana Review of Systems Const All systems reviewed & are unremarkable except as noted in HPI and below Physical Exam Vital Signs: Last Vital Signs Pulse 61 02/01/24 08:12 Resp 14 02/01/24 08:12 BP 143/74 H 02/01/24 08:12 Pulse Ox 98 02/01/24 08:12 Oxygen Delivery Method Room Air 02/01/24 08:12 BMI result Body Mass Index 28.1 General: Appears afebrile. Alert and oriented. Mood and affect appropriate. Follows and participates in conversation appropriately. Respiratory effort is unlabored. Able to transition from sit to stand unassisted. Office Procedures Joint Injection/Drain Coding Procedure code (CPT) selection complete Nerve Block Details: Diagnostic suprascapular nerve block, ultrasound guided After obtaining written consent, pre-procedure blood pressure and heart rate were stable and recorded in the nursing record. The patient was placed in a sitting position. The area overlying the peripheral nerve was widely prepped wi th chloraprep, allowed to dry and sterilely draped. Using ultrasound, the appropriate landmarks were identified. A 21 gauge 80 mm echostim needle was advanced under ultrasound guidance to the suprascapular notch. Aspiration was negative for heme and synovial fluid. Three cc of ropivacaine 0.5% was injected around the targeted nerve. The needle was removed, skin cleansed and a sterile bandage was applied. The patient tolerated the procedure well and no complications were encountered. Following the procedure the patient's vital signs were stable. The patient was discharged home in good condition with post-procedural instructions. Time Out: Immediately prior to the procedure, the following was verbally confirmed that there is a signed consent form and that the correct patient, planned procedure, site and side are consistent with documentation and that necessary equipment and/or blood products are available prior to the start of the case. Complications: none EBL: <5 cc 97603 - Suprascapular Procedure code (CPT) selection complete Assessment & Plan Assessment & Plan (1) Right shoulder pain: Code(s): M25.511 - Pain in right shoulder Category: Medical Plan Patient is status post right diagnostic suprascapular nerve block. Patient tolerated procedure well and was discharged home in stable condition with discharge instructions. All questions were answered. We will follow-up via telephone or in clinic to assess response to therapy. A follow-up appointment was made during today's visit. Scribed for Dr. Dallas by Tabitha Byrd, medical assistant secretary, on 02/01/2024. I, Dr. Dallas, have personally reviewed and agree with the information entered by the scribe. Coding Level of Care Code Procedure Only Diagnoses Right shoulder pain M25.511 CPT Codes Nerve Block - Nerve Block 4: 99868 - Suprascapular ([id number])
[2024-02-01 08:12] VITALS: BP 143/74; PULSE 61; RESP 14; O2SAT 98; BMI 28.1
== END 2024-02-01 08:37 | disposition home or self-care (01) ==
PROVIDERS: PCP Internal Medicine; Referring Provider Internal Medicine; Visit Provider Internal Medicine
DX: M25.511 Pain in right shoulder (principal)
CPT/HCPCS: 64418; 76942

== ENCOUNTER → 2024-02-01 08:03 | Outpatient (BNVA) | payer MEDICARE, SELFPAY | PROVIDERS: PCP Internal Medicine; Visit Provider Internal Medicine | DX: M25.511 Pain in right shoulder (principal) | CPT/HCPCS: 64418; J2795 ==

== ENCOUNTER → 2024-02-03 08:57 | Outpatient (BNVA) | payer MEDICARE, SELFPAY | PROVIDERS: PCP Internal Medicine; Visit Provider Internal Medicine | DX: G57.30 Lesion of lateral popliteal nerve, unspecified lower limb (principal); R20.2 Paresthesia of skin | CPT/HCPCS: 64450; J2795 ==

== ENCOUNTER 2024-02-08 08:46 | Outpatient (AMB) | payer MEDICARE, SELFPAY ==
--- NOTE | 2024-02-08 08:49 | MHC.OFFVIS ---
Vital Signs 02/08/24 08:56 Height 5 ft 8 in Weight 183 lb 1 oz BMI 27.8 BP 133/63 Blood Pressure Location Lt brachial Position Sitting Respiration 18 Pulse 56 Pulse Source Pulse Oximeter Pulse Oximetry (%) 99 Oxygen Delivery Method Room Air Intake Visit Reasons: s/p right suprascap NB/ peroneal hydrodissection Allergies amoxicillin [From Augmentin] Allergy (Intermediate, Verified 02/08/24 08:57) Nausea and Vomiting clavulanic acid [From Augmentin] Allergy (Intermediate, Verified 02/08/24 08:57) Nausea and Vomiting HPI Comments Details: Bruce presents back to the office today for follow up s/p right suprascapular nerve block. Reports 80% pain relief in the hours after the procedure. He also states since the procedure he has noticed improvement in function and mobility. Prior to he had to sleep with his arm tucked into his side, since then has been able to sleep with arm raised to head level. 02/01/2024 right suprascapular NB: 80% pain relief Prior: Patient presents to the office today for follow up, review of recent EMG. EMG reviewed, results as per below Patient continues with numbness, tingling of the left ankle and foot. He states if anything he feels like this has gotten worse since his last visit. Patient also continues with right shoulder pain. He canceled his orthopedic follow-up and would like to proceed with suprascapular Sprint trial as previously discussed. Bruce is a very pleasant 68-year-old male who presents to the office today for evaluation and management of his left lower extremity numbness. Patient reports that he has been suffering with numbness and weakness of the left foot/ankle for last 9 months. He denies any inciting injury. He states this happens with walking and resolves with rest. Patient has a significant history of vascular compromise, he has routine ultrasound imaging. Was told at his most recent vascular appointment that me stenosis has progressed and is much worse. However they did not believe that the pins and needles and tingling to the left foot were secondary to the vascular compromise. Patient denies lower back pain or radiculopathy symptoms, patient does have history of lumbar fusion. He denies red flag symptoms including loss of bowel, bladder or saddle anesthesia. Patient does report that the foot numbness is significant with walking, at times he will drag his foot and he is afraid of falling. Patient also endorses right shoulder pain, he has done physical therapy without improvement of his symptoms. He is on anticoagulants therefore an unable to take NSAIDs. He has had steroid injections to the shoulder without improvement of his pain. Patient has upcoming appointment planned with orthopedics to discuss surgery. He was told that that his last option. Left foot pain today is rated as a 2/10, intermittent and worse during the day. In terms of muscle damage condition is described as cramping, numb, tingling, pins and needles. Pain is negatively impacting patient's enjoyment of life, general activity, mood, recreational activities and walking. [facility]PLACED BY [facility] Medical History Hx of supraventricular tachycardia Meniere's disease Hypothyroidism Hx of aortic aneurysm Hx of myocardial infarction CAD (coronary artery disease) Constipation Diabetes GERD (gastroesophageal reflux disease) Elevated cholesterol PVD (peripheral vascular disease) HTN (hypertension) Missing teeth, acquired Hx of bladder cancer Nausea History of ischemic colitis A-fib Osteoporosis Surgical History Stented coronary artery S/P TURP (transurethral resection of prostate) History of lumbar fusion Hx of fusion of cervical spine Hx of cystoscopy History of transurethral resection of bladder tumor (TURBT) S/P peripheral artery angioplasty with stent placement History of femoropopliteal bypass Hx of knee surgery H/O angioplasty H/O Spinal surgery History of colonoscopy Family History Father Hx of cancer of lung Mother History of pancreatic cancer Social History Household Members: Other Household Members Other:: dog Are you a primary care program director to a significant other at home: No Do you presently have visiting nurse or other home services: No Alcohol intake: current Alcohol intake frequency: does not drink Patient Tobacco Use Status: Current everyday Tobacco user Tobacco use type: Cigarette Cigarettes Per Day: 3 Substance Use Type: Marijuana Review of Systems Const All systems reviewed & are unremarkable except as noted in HPI and below Physical Exam Vital Signs: Last Vital Signs Pulse 56 02/08/24 08:56 Resp 18 02/08/24 08:56 BP 133/63 02/08/24 08:56 Pulse Ox 99 02/08/24 08:56 Oxygen Delivery Method Room Air 02/08/24 08:56 BMI result Body Mass Index 27.8 General: awake, alert, oriented. Answers questions appropriately. Fully engaged in examination. Skin: warm, dry, intact HEENT: Normocephalic. Hearing intact. Cardiac: External chest normal in appearance. Respiratory: No cough, audible wheezing or stridor. Abdomen: without gross distension. MS: Right shoulder: decreased ROM. pain increase with overhead reach. Neurological: Oriented to person, place, time and situation. Thought process intact. No gait abnormalities appreciated. Psychiatric: Appropriate mood and affect. Good judgment and insight. Assessment & Plan Assessment & Plan (1) Paresthesia of left foot: Code(s): R20.2 - Paresthesia of skin Category: Medical (2) Right shoulder pain: Code(s): M25.511 - Pain in right shoulder Category: Medical Plan Bruce presents back to the office today for follow-up, one-week status post right suprascapular nerve block He reports 80% pain relief in the hours after the injection. He reports continued improvement in functional mobility since the procedure. Discussed at length patient's diagnoses and treatment options. He would like to proceed with sprint PNS device Schedule for ultrasound-guided right suprascapular Sprint PNS with local anesthetic. Informational pamphlet was provided. All questions and concerns were answered, patient agrees with the plan Follow-up after procedure, sooner if needed Medications: Refilled leg brace (Ankle Brace) Left AFO for left foot drop, peroneal neuropathy 1 ea 0RF Coding Level of Care Code Est Pt Level 3 (22447) Diagnoses Paresthesia of left foot R20.2 Right shoulder pain M25.511
[2024-02-08 08:56] VITALS: BP 133/63; PULSE 56; RESP 18; O2SAT 99; BMI 27.8
== END 2024-02-08 09:55 | disposition home or self-care (01) ==
PROVIDERS: PCP Internal Medicine; Visit Provider Registered Nurse Emergency
DX: R20.2 Paresthesia of skin (principal); M25.511 Pain in right shoulder
CPT/HCPCS: 99213

== ENCOUNTER → 2024-02-08 08:46 | Outpatient (BNVA) | payer MEDICARE, SELFPAY | PROVIDERS: PCP Internal Medicine; Visit Provider Registered Nurse Emergency | DX: M25.511 Pain in right shoulder (principal); R20.2 Paresthesia of skin | CPT/HCPCS: 99212 ==

== ENCOUNTER 2024-02-16 06:03 | Outpatient (REF) | payer MEDICARE, SELFPAY | END 2024-02-16 06:04 | disposition home or self-care (01) | LOC: CF 06:03 | PROVIDERS: Visit Provider Internal Medicine | DX: M25.511 Pain in right shoulder (principal) | CPT/HCPCS: 64555; C1778 ==

== ENCOUNTER 2024-02-16 08:35 | Outpatient (AMB) | payer MEDICARE, SELFPAY ==
--- NOTE | 2024-02-16 08:58 | A.OFFVIS_ITS ---
Intake Visit Reasons: Right suprascapular Sprint Allergies amoxicillin [From Augmentin] Allergy (Intermediate, Verified 02/08/24 08:57) Nausea and Vomiting clavulanic acid [From Augmentin] Allergy (Intermediate, Verified 02/08/24 08:57) Nausea and Vomiting HPI HPI Right suprascapular Sprint: Details: Patient presents for scheduled procedure. Denies any recent cough, cold, infection, fever or other significant changes in medical history since last office visit. FORMERLY [facility] Medical History Hx of supraventricular tachycardia Meniere's disease Hypothyroidism Hx of aortic aneurysm Hx of myocardial infarction CAD (coronary artery disease) Constipation Diabetes GERD (gastroesophageal reflux disease) Elevated cholesterol PVD (peripheral vascular disease) HTN (hypertension) Missing teeth, acquired Hx of bladder cancer Nausea History of ischemic colitis A-fib Osteoporosis Surgical History Stented coronary artery S/P TURP (transurethral resection of prostate) History of lumbar fusion Hx of fusion of cervical spine Hx of cystoscopy History of transurethral resection of bladder tumor (TURBT) S/P peripheral artery angioplasty with stent placement History of femoropopliteal bypass Hx of knee surgery H/O angioplasty H/O Spinal surgery History of colonoscopy Family History Father Hx of cancer of lung Mother History of pancreatic cancer Social History Household Members: Other Household Members Other:: dog Are you a primary chronic care nurse to a significant other at home: No Do you presently have visiting nurse or other home services: No Alcohol intake: current Alcohol intake frequency: does not drink Patient Tobacco Use Status: Current everyday Tobacco user Tobacco use type: Cigarette Cigarettes Per Day: 3 Substance Use Type: Marijuana Office Procedures Details: Peripheral Nerve Stimulation Temporary Lead Placement, Fluoroscopy-Guided, Suprascapular Nerve, Right ? After the risks, benefits and alternatives were discussed with the patient and informed consent was obtained, patient was placed in the sitting position and padded to foster comfort. Appropriate skin and bony landmarks were identified using fluoroscopy, including the left suprascapular notch. The skin overlying the needle entry site was prepped and draped in sterile fashion. After identifying and marking the intended target along the course of the suprascapular nerve, the skin around the planned entry point and the subcutaneous tissues were injected with local anesthetic. An introducer needle and stimulating probe were assembled, inserted and advanced along the intended course of the suprascapular nerve, taking care to maintain the proper depth of insertion as the introducer was advanced under fluoroscopy guidance. Bony contact was achieved with the scapula and maintained throughout. The introducer needle was delivered to a location in proximity to the nerve. Multiple stimulation parameters were used to deliver stimulation to the suprascapular nerve in concert with stimulating at multiple positions around the nerve. Nerve target acquisition was confirmed noting generation of sensory and mild motor effects (paresthesia, muscle tension, etc) in the shoulder and proximal arm; corresponding to the distribution of the suprascapular nerve. Various electrical parameter combinations were tested, and the lead location was adjusted (physically relocated under image guidance) until the patient indicated shoulder paresthesia and tension overlapping the distribution of the patient?s typical region of pain. The stimulating probe was removed from the introducer and a percutaneous lead was guided through the needle and delivered to a location in similar proximity to the nerve. Final location was verified with electrical stimulation and documented. The introducer needle was removed, and the exposed end of the percutaneous lead was attached to an external stimulator unit. Various electrical parameter combinations were again tested until the patient indicated paresthesia and muscle tension overlapping the distribution of the patient?s typical region of pain. After confirming that lead impedance was in the normal range, the external unit was detached, the needle was removed, and the lead was anchored at the skin. The needle entry site was occluded with dermabond. The lead was threaded into the connector block and electrical continuity and desired patient response was confirmed. The connector block was attached to the external stimulator unit. The site was covered with a sterile occlusive dressing.? A final image was taken to document final placement. The patient was observed for stability of vital signs and comfort. Sprint PNS Device: Sprint PNS Device [id number] Percutaneous Peripheral Neuroelectrode Procedure: 09921 - Percutaneous Peripheral Neuroelectrode Procedure code (CPT) selection complete Office Meds lidocaine (PF) 50 mg/5 mL (1 %) injection syringe Performing Provider: Jasmyn Cuellar APRN, MACARONI PRESS OPERATOR Performing Location: [facility] Administered by: Stacey Styles LPN on 02/16/24 09:08 Dose Route Admin Location Dispensed Lot Number Expiration Date NDC Merchandiser Seasonal 5 mL subcut 5 mL Assessment & Plan Assessment & Plan (1) Right shoulder pain: Code(s): M25.511 - Pain in right shoulder Category: Medical Plan Patient is status post temporary right suprascapular nerve stimulator placement. Patient tolerated procedure well and was discharged home in stable condition with discharge instructions. All questions were answered. We will follow-up via telephone or in clinic to assess response to therapy. A follow-up appointment was made during today's visit. Orders: Orders AMB Sprint PNS Today Jasmyn Cuellar APRN, MACARONI PRESS OPERATOR M25.511 - Pain in right shoulder FL guidance in treatment room Today Jasmyn Cuellar APRN, MACARONI PRESS OPERATOR M25.511 - Pain in right shoulder US guide needle placement Today Hermes Dallas MD M25.511 - Pain in right shoulder Coding Level of Care Code Procedure Only Diagnoses Right shoulder pain M25.511 CPT Codes Sprint PNS - Sprint PNS Device: Sprint PNS Device ([id number]) Sprint PNS - SPRINT: 53158 - Percutaneous Peripheral Neuroelectrode ([id number]) Implantable Device Implantable Device Implantable Devices Qty Merchandiser Seasonal Implant Date Expiration Date Analgesic PENS system 1 [employer] 02/16/24 02/25/25
== END 2024-02-16 10:02 | disposition home or self-care (01) ==
LOC: HO.PMCPRC 08:35
PROVIDERS: PCP Internal Medicine; Visit Provider Internal Medicine
DX: M25.511 Pain in right shoulder (principal)
CPT/HCPCS: 64555

== ENCOUNTER 2024-02-23 08:48 | Outpatient (AMB) | payer MEDICARE, SELFPAY ==
[2024-02-23 09:03] VITALS: BP 128/74; PULSE 50; RESP 16; O2SAT 100; BMI 27.7
--- NOTE | 2024-02-23 09:03 | MHC.OFFVIS ---
Vital Signs 02/23/24 09:03 Height 5 ft 8 in Weight 182 lb 2 oz BMI 27.7 BP 128/74 Blood Pressure Location Lt brachial Position Sitting Respiration 16 Pulse 50 Pulse Source Pulse Oximeter Pulse Oximetry (%) 100 Oxygen Delivery Method Room Air Intake Visit Reasons: s/p right suprascapular Sprint Intake Note: Patient comes in for post-op appointment. Site was cleared no redness/drainage/swelling at site. Site clean with alcohol prep pad, and new dsd/tegaderm applied. Today stimulation was set at 62 with good tolerance and reports pain level 2/10. Allergies amoxicillin [From Augmentin] Allergy (Intermediate, Verified 02/23/24 09:06) Nausea and Vomiting clavulanic acid [From Augmentin] Allergy (Intermediate, Verified 02/23/24 09:06) Nausea and Vomiting HPI Comments Details: Bruce presents back to the office today for follow up s/p right suprascapular nerve block. Reports 85 % pain relief .. The dressing was performed today there is no redness no swelling no pathological discharge. He also states since the procedure he has noticed improvement in function and mobility. Social interaction is improved as well. 02/01/2024 right suprascapular NB: 80% pain relief Prior: Patient presents to the office today for follow up, review of recent EMG. EMG reviewed, results as per below Patient continues with numbness, tingling of the left ankle and foot. He states if anything he feels like this has gotten worse since his last visit. Patient also continues with right shoulder pain. He canceled his orthopedic follow-up and would like to proceed with suprascapular Sprint trial as previously discussed. Bruce is a very pleasant 68-year-old male who presents to the office today for evaluation and management of his left lower extremity numbness. Patient reports that he has been suffering with numbness and weakness of the left foot/ankle for last 9 months. He denies any inciting injury. He states this happens with walking and resolves with rest. Patient has a significant history of vascular compromise, he has routine ultrasound imaging. Was told at his most recent vascular appointment that me stenosis has progressed and is much worse. However they did not believe that the pins and needles and tingling to the left foot were secondary to the vascular compromise. Patient denies lower back pain or radiculopathy symptoms, patient does have history of lumbar fusion. He denies red flag symptoms including loss of bowel, bladder or saddle anesthesia. Patient does report that the foot numbness is significant with walking, at times he will drag his foot and he is afraid of falling. Patient also endorses right shoulder pain, he has done physical therapy without improvement of his symptoms. He is on anticoagulants therefore an unable to take NSAIDs. He has had steroid injections to the shoulder without improvement of his pain. Patient has upcoming appointment planned with orthopedics to discuss surgery. He was told that that his last option. Left foot pain today is rated as a 2/10, intermittent and worse during the day. In terms of muscle damage condition is described as cramping, numb, tingling, pins and needles. Pain is negatively impacting patient's enjoyment of life, general activity, mood, recreational activities and walking. COUNTS INCLUDE 234 BEDS AT THE [facility] Medical History Hx of supraventricular tachycardia Meniere's disease Hypothyroidism Hx of aortic aneurysm Hx of myocardial infarction CAD (coronary artery disease) Constipation Diabetes GERD (gastroesophageal reflux disease) Elevated cholesterol PVD (peripheral vascular disease) HTN (hypertension) Missing teeth, acquired Hx of bladder cancer Nausea History of ischemic colitis A-fib Osteoporosis Surgical History Stented coronary artery S/P TURP (transurethral resection of prostate) History of lumbar fusion Hx of fusion of cervical spine Hx of cystoscopy History of transurethral resection of bladder tumor (TURBT) S/P peripheral artery angioplasty with stent placement History of femoropopliteal bypass Hx of knee surgery H/O angioplasty H/O Spinal surgery History of colonoscopy Family History Father Hx of cancer of lung Mother History of pancreatic cancer Social History Household Members: Other Household Members Other:: dog Are you a primary child care center assistant director to a significant other at home: No Do you presently have visiting nurse or other home services: No Alcohol intake: current Alcohol intake frequency: does not drink Patient Tobacco Use Status: Current everyday Tobacco user Tobacco use type: Cigarette Cigarettes Per Day: 3 Substance Use Type: Marijuana Review of Systems Const All systems reviewed & are unremarkable except as noted in HPI and below Physical Exam Vital Signs: Last Vital Signs Pulse 50 02/23/24 09:03 Resp 16 02/23/24 09:03 BP 128/74 02/23/24 09:03 Pulse Ox 100 02/23/24 09:03 Oxygen Delivery Method Room Air 02/23/24 09:03 BMI result Body Mass Index 27.7 General: awake, alert, oriented. Answers questions appropriately. Fully engaged in examination. Skin: warm, dry, intact HEENT: Normocephalic. Hearing intact. Cardiac: External chest normal in appearance. Respiratory: No cough, audible wheezing or stridor. Abdomen: without gross distension. MS: Right shoulder: decreased ROM. pain increase with overhead reach. Neurological: Oriented to person, place, time and situation. Thought process intact. No gait abnormalities appreciated. Psychiatric: Appropriate mood and affect. Good judgment and insight. Assessment & Plan Assessment & Plan (1) Right shoulder pain: Code(s): M25.511 - Pain in right shoulder Category: Medical Plan Patient continues treatment with sprint PNS the right suprascapular positioned. No signs of infections. Reports advanced improvement in pain relief as well as mobility and activities of daily living. Next time the patient will be seen for nursing appointment for dressing change. Coding Level of Care Code Est Pt Level 3 (07673) Diagnoses Right shoulder pain M25.511
== END 2024-02-23 09:18 | disposition home or self-care (01) ==
PROVIDERS: PCP Internal Medicine; Visit Provider Anesthesiology
DX: M25.511 Pain in right shoulder (principal)
CPT/HCPCS: 99024

== ENCOUNTER → 2024-02-23 08:48 | Outpatient (BNVA) | payer MEDICARE, SELFPAY | PROVIDERS: PCP Internal Medicine; Visit Provider Registered Nurse Emergency | DX: Z09 Encounter for follow-up examination after completed treatment for conditions other than malignant neoplasm (principal); M25.511 Pain in right shoulder | CPT/HCPCS: 99212 ==

== ENCOUNTER → 2024-03-02 08:54 | Outpatient (BNVA) | payer MEDICARE, SELFPAY | PROVIDERS: PCP Internal Medicine; Visit Provider Anesthesiology ==

== ENCOUNTER → 2024-03-12 09:58 | Outpatient (BNVA) | payer MEDICARE, SELFPAY | PROVIDERS: PCP Internal Medicine; Visit Provider Internal Medicine | DX: L30.9 Dermatitis, unspecified (principal) | CPT/HCPCS: 99212 ==

== ENCOUNTER 2024-03-12 10:18 | Outpatient (AMB) | payer MEDICARE, SELFPAY ==
--- NOTE | 2024-03-12 10:45 | A.OFFVIS_ITS ---
Vital Signs 03/12/24 10:59 Height 5 ft 8 in Weight 182 lb 15.739 oz BMI 27.8 BP 117/67 Blood Pressure Location Lt brachial Position Sitting Pulse 42 L Intake Visit Reasons: 6 month follow up Intake Note: Bruce presents in the office as a 6 month follow up. CC: He has a machine for his shoulder placed on his right shoulder. He states that there is a pinched nerve in the left knee that he has had procedures on. He states that he is not having any IG concerns - he has been doing okay. A few weeks ago he had a flare up with nausea, vomiting and diarrhea but not pains like it was pancreas and since then he is feeling okay. Potato Picker Required: No Allergies amoxicillin [From Augmentin] Allergy (Intermediate, Verified 03/12/24 11:00) Nausea and Vomiting clavulanic acid [From Augmentin] Allergy (Intermediate, Verified 03/12/24 11:00) Nausea and Vomiting HPI HPI 6 month follow up: Details: 68-year-old gentleman w/ PAd, CAD being seen for follow-up for chronic pancreatitis and ischemic colitis RECAP: sx going on for 4-5 yrs labs: ca-19-9 elevated, CEA-elevated, Pnac gene tests neg, igg4 was low, celiac panel neg, vit A low, Vit D normal, stool elastase 256 MRI 05/16- multpile panc cysts, no masses CTA: 08/2018- acute on chronic panc MRI: 10/2018- stable cysts of pancreas, possible galllstone, stable fullness adrenal gland US: 04/2019- F2-3 on elastography, distal aortic plaque referred for EUS to Dr Juarez- not felt to be necessary has been on panc supplements and zofran for symptoms smoker colonoscopy 2016 with polyps removed still has GB in place I referred to rheum due to osteoporosis, and he was commenced on fosamax LFT noted to be abnormal he was having ongoing abdo pain can be on right or left side nausea most days unsure on how to take panc supplements food was making the pain worse, mild reflux symptoms one flloating stool daily says has not had alcohol for 45 years, etiology of pancreatitis is un certain he had another apptm at [employer] for another opinon regards EUS mother of biliary cancer was still smoking, 3-4 cigs/day he was prescribed narcs and he is hesitant to take, due to being told he may have SOD. He saw Dr Pan at [facility] and was treated with rifaximin due to bloating which helped he also changed to viokase 20 K units 2 caps with meals, he stopped rosibel pep, wasn;t convinced it was helping trila of reglan due to possible gastroparesis, he thinks it is helping him by giving him more energy he was doing well up till few days ago, had pain in right flank, like a knife into the back, mild nausea no diarrhea, stool is formed. he had hematuria and seeing urologist he tried motegrity and he felt it didn;t help CT chest [facility] 01/2020--heavy coronary calcification, chronic lung disease, pulm nodules, rec repeat 12 months he si following up with rheum for osteporosis he is following up with urology for bladder cancer went thru course of BCG and mitomycin He did have suspected ischemic colitis and was admitted to [facility] The Ischemic colitis, was prob 2/2 constipation, maybe low flow state (seeing vascular at [facility] and gets periodic dopplers), or from a-fib was advised to cont linalcotide but take daily or every other day, adding fiber supplement, and increase fluid intake he had clear cystoscopy for his bladder ca he had [address] for his parathyroid, which was negative [facility] 07/20-- normal colonoscopy 09/2022--- polyp removed--perineuroma, diverticulosis noted INTERIM: He is doing well no abdominal pain he never had his prostate surgery yet rarely smokes cigs no nausea or vomiting no constipation--better with laxatives taking vit D and calcium, vit C overall stable, itchy excoriations on arms --denies fleas on dog he thinsk its from coumadin EXAM: GENERAL: The patient is well developed and nontoxic. VITAL SIGNS:see workflow HEENT: Nonicteric sclerae, PERRLA, EOMI. Oropharynx clear. Moist mucous membranes. Conjunctivae appear well perfused. No thyroid mass. CHEST: Chest wall is nontender. HEART: Regular rate and rhythm without murmurs. LUNGS: Clear to auscultation bilaterally. ABDOMEN: Soft, positive bowel sounds, nontender, no organomegaly.no flank tenderness SKIN: cuts on arms NEUROLOGIC: Cranial nerves II-XII intact without motor/sensory deficit. Psych--nml affect Assessments 1. chronic nausea, due to chronic pancreatitis and medications--controlled 2. chronic panc--stable, with occasional flare ups, PLAN 1/ add atarax at night for itching and hydrocortisone cream 2/ cont with creon 3/ cont with MV, vit D and C 4/ DEXA at future date [facility] Medical History Hx of supraventricular tachycardia Meniere's disease Hypothyroidism Hx of aortic aneurysm Hx of myocardial infarction CAD (coronary artery disease) Constipation Diabetes GERD (gastroesophageal reflux disease) Elevated cholesterol PVD (peripheral vascular disease) HTN (hypertension) Missing teeth, acquired Hx of bladder cancer Nausea History of ischemic colitis A-fib Osteoporosis Surgical History Stented coronary artery S/P TURP (transurethral resection of prostate) History of lumbar fusion Hx of fusion of cervical spine Hx of cystoscopy History of transurethral resection of bladder tumor (TURBT) S/P peripheral artery angioplasty with stent placement History of femoropopliteal bypass Hx of knee surgery H/O angioplasty H/O Spinal surgery History of colonoscopy Family History Father Hx of cancer of lung Mother History of pancreatic cancer Social History Household Members: Other Household Members Other:: dog Are you a primary care director rn to a significant other at home: No Do you presently have visiting nurse or other home services: No Alcohol intake: current Alcohol intake frequency: does not drink Patient Tobacco Use Status: Current everyday Tobacco user Tobacco use type: Cigarette Cigarettes Per Day: 3 Substance Use Type: Marijuana Physical Exam Vital Signs: Last Vital Signs Pulse 42 L 03/12/24 10:59 BP 117/67 03/12/24 10:59 BMI result Body Mass Index 27.8 Assessment & Plan Assessment & Plan (1) Dermatitis: Code(s): L30.9 - Dermatitis, unspecified Category: Medical Plan: see above Medications: New hydrocortisone 2.5% 1 appl topical BID PRN 28 grams 0RF skin irritation hydroxyzine HCl 10 mg PO BEDTIME 30 tabs 2RF Coding Level of Care Code Est Pt Level 3 (66115) Diagnoses Dermatitis L30.9
[2024-03-12 10:59] VITALS: BP 117/67; PULSE 42; BMI 27.8
== END 2024-03-12 11:41 | disposition home or self-care (01) ==
PROVIDERS: PCP Internal Medicine; Visit Provider Internal Medicine Gastroenterology
DX: L30.9 Dermatitis, unspecified (principal)
CPT/HCPCS: 99213

== ENCOUNTER → 2024-03-19 09:57 | Outpatient (BNVA) | payer MEDICARE, SELFPAY | PROVIDERS: PCP Internal Medicine; Visit Provider Internal Medicine ==

== ENCOUNTER → 2024-03-26 09:59 | Outpatient (BNVA) | payer MEDICARE, SELFPAY | PROVIDERS: PCP Internal Medicine | DX: Z48.01 Encounter for change or removal of surgical wound dressing (principal) ==

== ENCOUNTER → 2024-04-04 09:39 | Outpatient (BNVA) | payer MEDICARE, SELFPAY | PROVIDERS: PCP Internal Medicine; Visit Provider Registered Nurse Emergency | DX: Z48.00 Encounter for change or removal of nonsurgical wound dressing (principal) | CPT/HCPCS: 99211 ==

== ENCOUNTER 2024-04-12 08:43 | Outpatient (AMB) | payer MEDICARE, SELFPAY ==
--- NOTE | 2024-04-12 08:43 | A.OFFVIS_ITS ---
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 Patient reports 90% ongoing pain relief for the past 2 months and with good results at 66 stimulation with positive paresthesia on right shoulder. Patient reports improved range of motion, mobility, functioning and sleep. He does report mild tightness with internal right shoulder rotations otherwise is very content with outcome of Sprint therapy so far. The dressing was removed today. Lead insertion site is clean, dry, intact, no redness, no swelling, no pathological discharge. Area was cleansed with Chloraprep. The lead area was pulled with tip intact, the area was cleansed again with Chloraprep, applied Bacitracin and covered it with gauze. PRIOR: Bruce presents back to the office today for follow up s/p right suprascapular nerve block. Reports 85 % pain relief .. The dressing was performed today there is no redness no swelling no pathological discharge. He also states since the procedure he has noticed improvement in function and mobility. Social interaction is improved as well. 02/01/2024 right suprascapular NB: 80% pain relief Prior: Patient presents to the office today for follow up, review of recent EMG. EMG reviewed, results as per below Patient continues with numbness, tingling of the left ankle and foot. He states if anything he feels like this has gotten worse since his last visit. Patient also continues with right shoulder pain. He canceled his orthopedic follow-up and would like to proceed with suprascapular Sprint trial as previously discussed. Bruce is a very pleasant 68-year-old male who presents to the office today for evaluation and management of his left lower extremity numbness. Patient reports that he has been suffering with numbness and weakness of the left foot/ankle for last 9 months. He denies any inciting injury. He states this happens with walking and resolves with rest. Patient has a significant history of vascular compromise, he has routine ultrasound imaging. Was told at his most recent vascular appointment that me stenosis has progressed and is much worse. However they did not believe that the pins and needles and tingling to the left foot were secondary to the va scular compromise. Patient denies lower back pain or radiculopathy symptoms, patient does have history of lumbar fusion. He denies red flag symptoms including loss of bowel, bladder or saddle anesthesia. Patient does report that the foot numbness is significant with walking, at times he will drag his foot and he is afraid of falling. Patient also endorses right shoulder pain, he has done physical therapy without improvement of his symptoms. He is on anticoagulants therefore an unable to take NSAIDs. He has had steroid injections to the shoulder without improvement of his pain. Patient has upcoming appointment planned with orthopedics to discuss surgery. He was told that that his last option. Left foot pain today is rated as a 2/10, intermittent and worse during the day. In terms of muscle damage condition is described as cramping, numb, tingling, pins and needles. Pain is negatively impacting patient's enjoyment of life, general activity, mood, recreational activities and walking. [facility] Medical History Hx of supraventricular tachycardia Meniere's disease Hypothyroidism Hx of aortic aneurysm Hx of myocardial infarction CAD (coronary artery disease) Constipation Diabetes GERD (gastroesophageal reflux disease) Elevated cholesterol PVD (peripheral vascular disease) HTN (hypertension) Missing teeth, acquired Hx of bladder cancer Nausea History of ischemic colitis A-fib Osteoporosis Surgical History Stented coronary artery S/P TURP (transurethral resection of prostate) History of lumbar fusion Hx of fusion of cervical spine Hx of cystoscopy History of transurethral resection of bladder tumor (TURBT) S/P peripheral artery angioplasty with stent placement History of femoropopliteal bypass Hx of knee surgery H/O angioplasty H/O Spinal surgery History of colonoscopy Family History Father Hx of cancer of lung Mother History of pancreatic cancer Social History Household Members: Other Household Members Other:: dog Are you a primary managed care manager to a significant other at home: No Do you presently have visiting nurse or other home services: No Alcohol intake: current Alcohol intake frequency: does not drink Patient Tobacco Use Status: Current everyday Tobacco user Tobacco use type: Cigarette Cigarettes Per Day: 3 Substance Use Type: Marijuana Review of Systems Const All systems reviewed & are unremarkable except as noted in HPI and below Physical Exam Vital Signs: Last Vital Signs Pulse 63 04/12/24 08:51 BP 127/70 04/12/24 08:51 Pulse Ox 96 04/12/24 08:51 Oxygen Delivery Method Room Air 04/12/24 08:51 BMI result Body Mass Index 27.4 General: Appears afebrile. Alert and oriented. Mood and affect appropriate. Follows and participates in conversation appropriately. Respiratory effort is unlabored. Able to transition from sit to stand unassisted. Ambulates with bilaterally normal heel strike and toe off. Lead Insertion Site: Lead insertion site looks clean, dry, intact. No pathological discharge, no swelling and no erythema. Lead pulled with tip intact. Results Reviewed Results Reviewed: No imaging is available for review. Assessment & Plan Assessment & Plan (1) Right shoulder pain: Code(s): M25.511 - Pain in right shoulder Category: Medical Plan Patient presented today Sprint PNS lead removal. He reports ongoing 90 % pain relief. Lead insertion site looks clean, dry, intact, no pathological discharge. Area was cleansed with Chloraprep. Lead pulled with tip intact. Patient will continue to monitor his pain levels and notify our office when his symptoms return to baseline. All questions and concerns have been answered and the patient agreed with the p raiza. Follow up as needed. Coding Level of Care Code Est Pt Level 3 (37615) Diagnoses Right shoulder pain M25.511
[2024-04-12 08:51] VITALS: BP 127/70; PULSE 63; O2SAT 96; BMI 27.4
== END 2024-04-12 08:59 | disposition home or self-care (01) ==
PROVIDERS: PCP Internal Medicine; Visit Provider Nurse Practitioner Family
DX: M25.511 Pain in right shoulder (principal)
CPT/HCPCS: 99213

== ENCOUNTER → 2024-04-12 08:43 | Outpatient (BNVA) | payer MEDICARE, SELFPAY | PROVIDERS: PCP Internal Medicine; Visit Provider Nurse Practitioner Family | DX: M25.511 Pain in right shoulder (principal); Z45.49 Encounter for adjustment and management of other implanted nervous system device | CPT/HCPCS: 99212 ==

== ENCOUNTER 2024-06-27 13:33 | Outpatient (AMB) | payer MEDICARE, SELFPAY ==
[2024-06-27 14:00] VITALS: BP 159/82; PULSE 84; O2SAT 99; BMI 27.2
--- NOTE | 2024-06-27 14:00 | MHC.OFFVIS ---
Vital Signs 06/27/24 14:00 Height 5 ft 8 in Weight 179 lb BMI 27.2 BP 159/82 H Blood Pressure Location Rt brachial Position Sitting Pulse 84 Pulse Source Pulse Oximeter Pulse Oximetry (%) 99 Oxygen Delivery Method Room Air Intake Visit Reasons: Sciatica/Hip & Leg Pain Allergies amoxicillin [From Augmentin] Allergy (Intermediate, Verified 06/27/24 14:01) Nausea and Vomiting clavulanic acid [From Augmentin] Allergy (Intermediate, Verified 06/27/24 14:01) Nausea and Vomiting Medication List - Last Reconciled 06/27/24 by Maya Lebron ascorbic acid (vitamin C) 1 g PO DAILY aspirin 81 mg PO DAILY atorvastatin 40 mg PO BEDTIME calcium citrate 800 mg PO DAILY diltiazem HCl CD 360 mg PO BEDTIME docusate sodium (Colace) 100 mg PO BID empagliflozin (Jardiance) 25 mg PO DAILY famotidine 40 mg PO BEDTIME finasteride 5 mg PO DAILY fluoride (sodium) 1.1% PO hydrocortisone 2.5% 1 appl topical BID PRN hydroxyzine HCl 10 mg PO BEDTIME insulin asp prt-insulin aspart 100 unit/mL (70-30) (Novolog Mix 70-30 U-100 Insuln) sliding scale doses subcut USEASDIRECTD insulin glargine (Lantus Solostar U-100 Insulin) 27 units subcut BEDTIME leg brace (Ankle Brace) Left AFO for left foot drop, peroneal neuropathy levothyroxine 150 mcg PO DAILY linaclotide 72 mcg PO DAILY 30 days uxhuly-eigmhaho-kvdokpn 20,880-78,300- 78,300 unit (Viokace) tabs PO lisinopril mg lorazepam (Ativan) 0.5 mg PO BEDTIME PRN metoprolol tartrate 50 mg PO BID ondansetron HCl 4 mg PO Q8H PRN tamsulosin (Flomax) 0.4 mg PO DAILY@1700 warfarin 5 mg PO DAILY HPI Comments Details: Bruce presents back to the office today for new complaint of left leg upper leg pain Reports tenderness to palpation left lateral upper thigh with radiation down the thigh stopping above the knee Pain is worse when he lays on that side and with walking Prior: Patient is a pleasant 68 years old male who presents today for Sprint removal. Patient reports 90% ongoing pain relief for the past 2 months and with good results at 66 stimulation with positive paresthesia on right shoulder. Patient reports improved range of motion, mobility, functioning and sleep. He does report mild tightness with internal right shoulder rotations otherwise is very content with outcome of Sprint therapy so far. The dressing was removed today. Lead insertion site is clean, dry, intact, no redness, no swelling, no pathological discharge. Area was cleansed with Chloraprep. The lead area was pulled with tip intact, the area was cleansed again with Chloraprep, applied Bacitracin and covered it with gauze. PRIOR: Bruce presents back to the office today for follow up s/p right suprascapular nerve block. Reports 85 % pain relief .. The dressing was performed today there is no redness no swelling no pathological discharge. He also states since the procedure he has noticed improvement in function and mobility. Social interaction is improved as well. 02/01/2024 right suprascapular NB: 80% pain relief Prior: Patient presents to the office today for follow up, review of recent EMG. EMG reviewed, results as per below Patient continues with numbness, tingling of the left ankle and foot. He states if anything he feels like this has gotten worse since his last visit. Patient also continues with right shoulder pain. He canceled his orthopedic follow-up and would like to proceed with suprascapular Sprint trial as previously discussed. Bruce is a very pleasant 68-year-old male who presents to the office today for evaluation and management of his left lower extremity numbness. Patient reports that he has been suffering with numbness and weakness of the left foot/ankle for last 9 months. He denies any inciting injury. He states this happens with walking and resolves with rest. Patient has a significant history of vascular compromise, he has routine ultrasound imaging. Was told at his most recent vascular appointment that me stenosis has progressed and is much worse. However they did not believe that the pins and needles and tingling to the left foot were secondary to the vascular compromise. Patient denies lower back pain or radiculopathy symptoms, patient does have history of lumbar fusion. He denies red flag symptoms including loss of bowel, bladder or saddle anesthesia. Patient does report that the foot numbness is significant with walking, at times he will drag his foot and he is afraid of falling. Patient also endorses right shoulder pain, he has done physical therapy without improvement of his symptoms. He is on anticoagulants therefore an unable to take NSAIDs. He has had steroid injections to the shoulder without improvement of his pain. Patient has upcoming appointment planned with orthopedics to discuss surgery. He was told that that his last option. Left foot pain today is rated as a 2/10, intermittent and worse during the day. In terms of muscle damage condition is described as cramping, numb, tingling, pins and needles. Pain is negatively impacting patient's enjoyment of life, general activity, mood, recreational activities and walking. [facility] Medical History Hx of supraventricular tachycardia Meniere's disease Hypothyroidism Hx of aortic aneurysm Hx of myocardial infarction CAD (coronary artery disease) Constipation Diabetes GERD (gastroesophageal reflux disease) Elevated cholesterol PVD (peripheral vascular disease) HTN (hypertension) Missing teeth, acquired Hx of bladder cancer Nausea History of ischemic colitis A-fib Osteoporosis Surgical History Stented coronary artery S/P TURP (transurethral resection of prostate) History of lumbar fusion Hx of fusion of cervical spine Hx of cystoscopy History of transurethral resection of bladder tumor (TURBT) S/P peripheral artery angioplasty with stent placement History of femoropopliteal bypass Hx of knee surgery H/O angioplasty H/O Spinal surgery History of colonoscopy Family History Father Hx of cancer of lung Mother History of pancreatic cancer Social History Household Members: Other Household Members Other:: dog Are you a primary hemodialysis patient care specialist to a significant other at home: No Do you presently have visiting nurse or other home services: No Alcohol intake: current Alcohol intake frequency: does not drink Patient Tobacco Use Status: Current everyday Tobacco user Tobacco use type: Cigarette Cigarettes Per Day: 3 Substance Use Type: Marijuana Review of Systems Const All systems reviewed & are unremarkable except as noted in HPI and below Physical Exam Vital Signs: Last Vital Signs Pulse 84 06/27/24 14:00 BP 159/82 H 06/27/24 14:00 Pulse Ox 99 06/27/24 14:00 Oxygen Delivery Method Room Air 06/27/24 14:00 BMI result Body Mass Index 27.2 General: awake, alert, oriented. Answers questions appropriately. Fully engaged in examination. Skin: warm, dry, intact HEENT: Normocephalic. Hearing intact. Cardiac: External chest normal in appearance. Respiratory: No cough, audible wheezing or stridor. Abdomen: without gross distension. MS: Tenderness to palpation over left GTB. No pain with internal/external rotation of the left hip. Nontender over PSIS. Neurological: Oriented to person, place, time and situation. Thought process intact. No gait abnormalities appreciated. Psychiatric: Appropriate mood and affect. Good judgment and insight. Assessment & Plan Assessment & Plan (1) Greater trochanteric bursitis of left hip: Code(s): M70.62 - Trochanteric bursitis, left hip Category: Medical Plan Bruce is a very pleasant 69-year-old male who presented to the office today for evaluation management of his left thigh pain History, physical exam and provocative testing consistent with left greater trochanteric bursitis New prescription for lidocaine 4% patches. Apply to most painful area once daily as needed Will schedule for left GTB injection to be done in the office with Dr. Mejia All questions and concerns were answered, patient agrees to the plan, follow-up for injection, sooner if needed Medications: New lidocaine 4% (Salonpas (lidocaine)) 1 patch topical DAILY PRN 30 ea 0RF pain Coding Level of Care Code Est Pt Level 3 (11842) Complex EM visit Add On G2211 Diagnoses Greater trochanteric bursitis of left hip M70.62
== END 2024-06-27 14:19 | disposition home or self-care (01) ==
LOC: HO.PMC 13:34
PROVIDERS: PCP Internal Medicine; Visit Provider Registered Nurse Emergency
DX: M70.62 Trochanteric bursitis, left hip (principal)
CPT/HCPCS: 99213; G2211

== ENCOUNTER → 2024-06-27 13:33 | Outpatient (BNVA) | payer MEDICARE, SELFPAY | PROVIDERS: PCP Internal Medicine; Visit Provider Registered Nurse Emergency | DX: M70.62 Trochanteric bursitis, left hip (principal) | CPT/HCPCS: 99212 ==

== ENCOUNTER 2024-07-05 09:16 | Outpatient (AMB) | payer MEDICARE, SELFPAY ==
--- NOTE | 2024-07-05 09:17 | A.OFFVIS_ITS ---
Vital Signs 07/05/24 09:29 Height 5 ft 8 in Weight 174 lb 8 oz BMI 26.5 BP 124/78 Blood Pressure Location Lt brachial Position Sitting Respiration 16 Pulse 88 Pulse Source Pulse Oximeter Pulse Oximetry (%) 98 Oxygen Delivery Method Room Air Intake Visit Reasons: LEFT GREATER TROCHANTERIC BURSA INJECTION Intake Note: Patient comes in for left tronchanteric bursa injection. Reports pain 05/08. Allergies amoxicillin [From Augmentin] Allergy (Intermediate, Verified 07/05/24 09:29) Nausea and Vomiting clavulanic acid [From Augmentin] Allergy (Intermediate, Verified 07/05/24 09:29) Nausea and Vomiting HPI Comments Details: Bruce is very pleasant 69 years old gentleman who presents in my office with complains on pain in bilateral lower extremities more on the right and less on the left. He was diagnose with severe vascular insufficiency of bilateral lower extremities. 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 He denies any trauma in the area of the peroneal nerve. Most likely the peroneal nerve was affected by ischemia. Reports that stents in his right lower extremity are completely obstructed. He is scheduled for the bypass surgery on 07/30/2024. This will help him to maintain strength of the bilateral lower extremities and maybe improve the function of the peroneal nerve and peroneal nerve distribution pain. At this time I can offer him only gabapentin 300 mg b.i.d. to help his pain. I will stop muscle relaxants he was previously ordered in this office. It could interact with gabapentin and produce more dizziness drowsiness and sleepiness. At the same time patient is suffering from postlaminectomy syndrome L5-S1 he had a fusion in the past. I gave patient [employer] spinal cord stimulator brochure. I think it would be a good addition not only to his lower back pain but also it is possible to improve the circulation in the bilateral lower extremities after his bypass. He reports great results still lasting after suprascapular nerve block and suprascapular sprint PNS. He reports excellent mobility excellent activities of daily living as the regard of his shoulder function and shoulder pain. PRIOR: Bruce presents back to the office today for follow up s/p right suprascapular nerve block. Reports 85 % pain relief .. The dressing was performed today there is no redness no swelling no pathological discharge. He also states since the procedure he has noticed improvement in function and mobility. Social interaction is improved as well. 02/01/2024 right suprascapular NB: 80% pain relief Prior: Patient presents to the office today for follow up, review of recent EMG. EMG reviewed, results as per below Patient continues with numbness, tingling of the left ankle and foot. He states if anything he feels like this has gotten worse since his last visit. Patient also continues with right shoulder pain. He canceled his orthopedic follow-up and would like to proceed with suprascapular Sprint trial as previously discussed. Bruce is a very pleasant 68-year-old male who presents to the office today for evaluation and management of his left lower extremity numbness. Patient reports that he has been suffering with numbness and weakness of the left foot/ankle for last 9 months. He denies any inciting injury. He states this happens with walking and resolves with rest. Patient has a significant history of vascular compromise, he has routine ultrasound imaging. Was told at his most recent vascular appointment that me stenosis has progressed and is much worse. However they did not believe that the pins and needles and tingling to the left foot were secondary to the vascular compromise. Patient denies lower back pain or radiculopathy symptoms, patient does have history of lumbar fusion. He denies red flag symptoms including loss of bowel, bladder or saddle anesthesia. Patient does report that the foot numbness is significant with walking, at times he will drag his foot and he is afraid of falling. Patient also endorses right shoulder pain, he has done physical therapy without improvement of his symptoms. He is on anticoagulants therefore an unable to take NSAIDs. He has had steroid injections to the shoulder without improvement of his pain. Patient has upcoming appointment planned with orthopedics to discuss surgery. He was told that that his last option. Left foot pain today is rated as a 2/10, intermittent and worse during the day. In terms of muscle damage condition is described as cramping, numb, tingling, pins and needles. Pain is negatively impacting patient's enjoyment of life, general activity, mood, recreational activities and walking. [facility] Medical History Hx of supraventricular tachycardia Meniere's disease Hypothyroidism Hx of aortic aneurysm Hx of myocardial infarction CAD (coronary artery disease) Constipation Diabetes GERD (gastroesophageal reflux disease) Elevated cholesterol PVD (peripheral vascular disease) HTN (hypertension) Missing teeth, acquired Hx of bladder cancer Nausea History of ischemic colitis A-fib Osteoporosis Surgical History Stented coronary artery S/P TURP (transurethral resection of prostate) History of lumbar fusion Hx of fusion of cervical spine Hx of cystoscopy History of transurethral resection of bladder tumor (TURBT) S/P peripheral artery angioplasty with stent placement History of femoropopliteal bypass Hx of knee surgery H/O angioplasty H/O Spinal surgery History of colonoscopy Family History Father Hx of cancer of lung Mother History of pancreatic cancer Social History Household Members: Other Household Members Other:: dog Are you a primary career coach to a significant other at home: No Do you presently have visiting nurse or other home services: No Alcohol intake: current Alcohol intake frequency: does not drink Patient Tobacco Use Status: Current everyday Tobacco user Tobacco use type: Cigarette Cigarettes Per Day: 3 Substance Use Type: Marijuana Review of Systems Const All systems reviewed & are unremarkable except as noted in HPI and below Physical Exam Vital Signs: Last Vital Signs Pulse 88 07/05/24 09:29 Resp 16 07/05/24 09:29 BP 124/78 07/05/24 09:29 Pulse Ox 98 07/05/24 09:29 Oxygen Delivery Method Room Air 07/05/24 09:29 BMI result Body Mass Index 26.5 General: awake, alert, oriented. Answers questions appropriately. Fully engaged in examination. Skin: warm, dry, intact HEENT: Normocephalic. Hearing intact. Cardiac: External chest normal in appearance. Respiratory: No cough, audible wheezing or stridor. Abdomen: without gross distension. MS: Right shoulder: decreased ROM. pain increase with overhead reach. Neurological: Oriented to person, place, time and situation. Thought process intact. No gait abnormalities appreciated. Psychiatric: Appropriate mood and affect. Good judgment and insight. Assessment & Plan Assessment & Plan (1) Greater trochanteric bursitis of left hip: Code(s): M70.62 - Trochanteric bursitis, left hip Category: Medical Plan I am not sure this patient's problem is trochanteric pain. Most likely the pain is related to the knee more than it is to the trochanter. He reports pain in the lateral surface of the knee in distribution of the peroneal nerve/fibular nerve. He is scheduled for bypass surgery for his lower extremity. Maybe it will improve function of the common peroneal nerve as well. If this will not be effective I offered the patient spinal cord stimulator [employer]. This would be a good addition to bypass surgery as it will provide sympathetic blockade and provide better circulation in the bilateral lower extremities. As of his PNS sprint for the shoulder pain it is complete success and patient still continues to endorse excellent activity of the shoulder and minimal pain syndrome on the shoulder pain. To help his pain with EMG diagnosed peroneal nerve I will start him on gabapentin 300 mg p.o. b.i.d.. I will stop methocarbamol - because it may interfere with gabapentin. Medications: New gabapentin 300 mg PO BID 60 caps 4RF 30 days Discontinued methocarbamol No driving while taking this medication. 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 Coding Level of Care Code Est Pt Level 4 (92528) Diagnoses Greater trochanteric bursitis of left hip M70.62
[2024-07-05 09:29] VITALS: BP 124/78; PULSE 88; RESP 16; O2SAT 98; BMI 26.5
== END 2024-07-05 09:53 | disposition home or self-care (01) ==
LOC: HO.PMC 09:17
PROVIDERS: PCP Internal Medicine; Visit Provider Anesthesiology
DX: M70.62 Trochanteric bursitis, left hip (principal)
CPT/HCPCS: 99214

== ENCOUNTER → 2024-07-05 09:16 | Outpatient (BNVA) | payer MEDICARE, SELFPAY | PROVIDERS: PCP Internal Medicine; Visit Provider Anesthesiology | DX: M70.62 Trochanteric bursitis, left hip (principal) | CPT/HCPCS: 99212 ==

== ENCOUNTER 2024-09-10 12:52 | Outpatient (AMB) | payer MEDICARE, SELFPAY ==
--- NOTE | 2024-09-10 13:31 | A.OFFVIS_ITS ---
Vital Signs 09/10/24 13:34 Height 5 ft 8 in Weight 176 lb 5.917 oz BMI 26.8 BP 148/79 H Blood Pressure Location Lt brachial Position Sitting Pulse 66 Intake Visit Reasons: 6 month follow up Intake Note: Bruce presents in the office as a 6 month follow up. CC: Had surgery in Jul - note printed. He states that he is having chronic constipation due to pancreatitis. Had bowel obstruction and bypass. Registered Nurse Nursery Required: No Allergies amoxicillin [From Augmentin] Allergy (Intermediate, Verified 09/10/24 13:35) Nausea and Vomiting clavulanic acid [From Augmentin] Allergy (Intermediate, Verified 09/10/24 13:35) Nausea and Vomiting HPI HPI 6 month follow up: Details: 69-year-old gentleman w/ PAd, CAD being seen for follow-up for chronic pancreatitis and ischemic colitis RECAP: sx going on for 4-5 yrs labs: ca-19-9 elevated, CEA-elevated, Pnac gene tests neg, igg4 was low, celiac panel neg, vit A low, Vit D normal, stool elastase 256 MRI 05/16- multpile panc cysts, no masses CTA: 08/2018- acute on chronic panc MRI: 10/2018- stable cysts of pancreas, possible galllstone, stable fullness adrenal gland US: 04/2019- F2-3 on elastography, distal aortic plaque referred for EUS to Dr Juarez- not felt to be necessary has been on panc supplements and zofran for symptoms smoker colonoscopy 2016 with polyps removed still has GB in place I referred to rheum due to osteoporosis, and he was commenced on fosamax LFT noted to be abnormal he was having ongoing abdo pain can be on right or left side nausea most days unsure on how to take panc supplements food was making the pain worse, mild reflux symptoms one flloating stool daily says has not had alcohol for 45 years, etiology of pancreatitis is uncertain he had another apptm [facility] for another opinon regards EUS mother of biliary cancer was still smoking, 3-4 cigs/day he was prescribed narcs and he is hesitant to take, due to being told he may have SOD. He saw Dr Pan at [facility] and was treated with rifaximin due to bloating which helped he also changed to viokase 20 K units 2 caps with meals, he stopped rosibel pep, wasn;t convinced it was helping trila of reglan due to possible gastroparesis, he thinks it is helping him by giving him more energy he was doing well up till few days ago, had pain in right flank, like a knife into the back, mild nausea no diarrhea, stool is formed. he had hematuria and seeing urologist he tried motegrity and he felt it didn;t help CT chest [facility] 01/2020--heavy coronary calcification, chronic lung disease, pulm nodules, rec repeat 12 months he si following up with rheum for osteporosis he is following up with urology for bladder cancer went thru course of BCG and mitomycin He did have suspected ischemic colitis and was admitted to [facility] The Ischemic colitis, was prob 2/2 constipation, maybe low flow state (seeing vascular at [facility] and gets periodic dopplers), or from a-fib was advised to cont linalcotide but take daily or every other day, adding fiber supplement, and increase fluid intake he had clear cystoscopy for his bladder ca he had [address] for his parathyroid, which was negative [facility] 07/20-- normal colonoscopy 09/2022--- polyp removed--perineuroma, diverticulosis noted]] He had SBO 04/2024 managed conservatively, He then had left fem pop bypass 08/21 INTERIM: He is doing well no abdominal pain he never had his prostate surgery yet rarely smokes cigs no nausea or vomiting no constipation--better with laxatives taking vit D and calcium, vit C overall stable, itchy excoriations on arms --denies fleas on dog he thinsk its from coumadin EXAM: GENERAL: The patient is well developed and nontoxic. VITAL SIGNS:see workflow HEENT: Nonicteric sclerae, PERRLA, EOMI. Oropharynx clear. Moist mucous membranes. Conjunctivae appear well perfused. No thyroid mass. CHEST: Chest wall is nontender. HEART: Regular rate and rhythm without murmurs. LUNGS: Clear to auscultation bilaterally. ABDOMEN: Soft, positive bowel sounds, nontender, no organomegaly.no flank tenderness SKIN: cuts on arms NEUROLOGIC: Cranial nerves II-XII intact without motor/sensory deficit. Psych--nml affect Assessments 1. chronic nausea, due to chronic pancreatitis and medications--controlled 2. chronic panc--stable, with occasional flare ups, 3. SBO at [facility] -?from adhesions PLAN 1/ CT enterogram to re eval small bowel ensure no lesions etc 2/ cont with creon 3/ cont with MV, vit D and C 4/ DEXA at future date [facility] Medical History Hx of supraventricular tachycardia Meniere's disease Hypothyroidism Hx of aortic aneurysm Hx of myocardial infarction CAD (coronary artery disease) Constipation Diabetes GERD (gastroesophageal reflux disease) Elevated cholesterol PVD (peripheral vascular disease) HTN (hypertension) Missing teeth, acquired Hx of bladder cancer Nausea History of ischemic colitis A-fib Osteoporosis Surgical History Stented coronary artery S/P TURP (transurethral resection of prostate) History of lumbar fusion Hx of fusion of cervical spine Hx of cystoscopy History of transurethral resection of bladder tumor (TURBT) S/P peripheral artery angioplasty with stent placement History of femoropopliteal bypass Hx of knee surgery H/O angioplasty H/O Spinal surgery History of colonoscopy Family History Father Hx of cancer of lung Mother History of pancreatic cancer Social History Household Members: Other Household Members Other:: dog Are you a primary physician primary care sports medicine to a significant other at home: No Do you presently have visiting nurse or other home services: No Alcohol intake: current Alcohol intake frequency: does not drink Patient Tobacco Use Status: Current everyday Tobacco user Tobacco use type: Cigarette Cigarettes Per Day: 3 Substance Use Type: Marijuana Physical Exam Vital Signs: Last Vital Signs Pulse 66 09/10/24 13:34 BP 148/79 H 09/10/24 13:34 BMI result Body Mass Index 26.8 Assessment & Plan Assessment & Plan (1) Chronic pancreatitis: Code(s): K86.1 - Other chronic pancreatitis Category: Medical Plan: see above Orders: Orders CT enterography Today K56.600 - Partial intestinal obstruction, unspecified as to cause, R10.33 - Periumbilical pain Coding Level of Care Code Est Pt Level 3 (87233) Diagnoses Chronic pancreatitis K86.1
[2024-09-10 13:34] VITALS: BP 148/79; PULSE 66; BMI 26.8
== END 2024-09-10 14:04 | disposition home or self-care (01) ==
PROVIDERS: PCP Internal Medicine; Visit Provider Internal Medicine Gastroenterology
DX: K86.1 Other chronic pancreatitis (principal)
CPT/HCPCS: 99213

== ENCOUNTER → 2024-09-10 12:52 | Outpatient (BNVA) | payer MEDICARE, SELFPAY | PROVIDERS: PCP Internal Medicine; Visit Provider Internal Medicine Gastroenterology | DX: K86.1 Other chronic pancreatitis (principal) | CPT/HCPCS: 99212 ==

== ENCOUNTER 2024-10-31 08:00 | Outpatient (REF) | payer MEDICARE, SELFPAY ==
--- NOTE | ~2024-10-31 | CT_ITS ---
CLINICAL HISTORY: K56.600 - Partial intestinal obstruction, unspecified as to cause CT abdomen and pelvis with contrast Comparison: None Findings: Chronic interstitial changes are noted at the lung bases with bronchial wall thickening and diffuse subpleural reticular interstitial prominence. There is also interlobular septal thickening present. Atherosclerotic disease of the coronary arteries noted. The liver, gallbladder, spleen, and adrenal glands are unremarkable. Severe chronic changes throughout the pancreas with atrophy, diffuse calcifications and dilation of the pancreatic duct. No definite pancreatic mass identified. The stomach is significantly distended. Reference axial images 188-225, series 5, there is the suggestion of abnormal soft tissue thickening in the region of the pylorus with hyperenhancement There is extensive diverticulosis. No current evidence of diverticulitis. Moderate diffuse fecal retention noted. The distal small bowel and the colon are relatively decompressed and not entirely well evaluated. Diffuse severe atherosclerotic disease. 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 No acute osseous abnormality Impression: The stomach is significantly dilated and there is the suggestion of soft tissue thickening and hyperenhancement in the region of the pylorus. Direct visualization and possible sampling may be appropriate. Severe chronic changes within the pancreas. Moderately severe interstitial changes of the lung bases 2.4 cm right common iliac artery aneurysm. This document has been electronically signed by: Brett Bolton MD on 10/31/2024 18:55:06
--- OUTSIDE RECORDS SUMMARY | 2024-10-31 08:07 | XMS_ITS | Encounter Summary ---
Author Name [facility] [facility] [place] Address [address] [place] [address] Care Team Providers Care Outdoor Guide Name Role Phone MARICEL ELIAS Primary Care Provider Unavaila ble Insurance Providers: All historical and current Section Date Range: From patient's date of to the date document was created. This section includes the names of all active insurance providers for the patient. Insurance Provider Type of Coverage Plan Name Start of Policy Coverage End of Policy Coverage Group Number Member ID Insurance Provider's Telephone Number Policy Ram's Name Patient's Relationship to Policy Ram [place] MEDICARE SUPPLEMEN [place] MEDEX 2 Apr 29, 2020 [id number] ALICE RUSSO [place]BS [place] MEDICARE SUPPLEMEN [place] MEDEX 2 Apr 29, 2020 [id number] ALICE RUSSO BCBS [facility] ACTIV E Feb 27, 2012 [id number] ALICE RUSSO PATIENT [employer] ([id number]) PRESCRIPT ION L4TA* Feb 27, 2012 [id number] [id number] ALICE RUSSO PATIENT [employer] ([id number]) PRESCRIPT ION Feb 27, 2012 [id number] [phone] ALICE RUSSO PATIENT MEDICARE (WNR) MEDICARE (M) PART A Apr 29, 2020 PART A [id number] ALICE RUSSO PATIENT MEDICARE (WNR) MEDICARE (M) PART B Apr 29, 2020 PART B [id number] ALICE RUSSO PATIENT MEDICARE (WNR) MEDICARE (M) PART A Apr 29, 2020 PART A [id number] ALICE RUSSO PATIENT MEDICARE (WNR) MEDICARE (M) PART B Apr 29, 2020 PART B [id number] [phone] ALICE RUSSO PATIENT Selected Encounter This section includes the information on record at [place] for the Encounter. Date/Time Encounter Type Encounter Description Reason Provider Source Nov 01, 2023 09:00 AM NEUROMUSCULAR REEDUCATION PHYSICAL THERAPY ICD-10-CM R42 Dizziness and giddiness PEGGY GARCIA [facility] Encounter Template Text not used by [place] Assessments - Encounter Diagnoses This section includes the primary and secondary diagnoses documented for the Encounter. Date/Time Primary/Secondary Diagnosis Diagnosis Name Provider Source Nov 14, 2023 01:15 PM PRIMARY Dizziness and giddiness PEGGY GARCIA [place] [facility] [place] [facility] Nov 14, 2023 01:15 PM SECONDARY Other peripheral vertigo, unspecified ear [facility] [place] [facility] Plan of Treatment: Future Appointments (+ 6 months) and Future Tests (+/- 45 days) The Plan of Treatment section includes future care activities for the patient from all [place] treatmentfacilities. This section includes future appointments and future orders which are active, pending or scheduled. Future Appointments This section includes appointments that were scheduled to occur 6 months from the date of the Encounter, up to a maximum of 20 appointments. The data comes from all [place] treatment facilities. Appointment Date/Time Appointment Type Appointme nt Facility Name January 05, 2024 10:30 AM AMBULATORY - MEDICINE [facility] [place] [facility] January 25, 2024 11:00 AM AMBULATORY - MEDICINE [facility] [place] [facility] Feb 02, 2024 12:30 PM AMBULATORY - NONE [place] [facility] [place] [facility] Apr 02, 2024 09:00 AM AMBULATORY - MEDICINE [place] [facility] [place] [facility] May 03, 2024 08:30 AM AMBULATORY - MEDICINE [facility] May 03, 2024 03:00 PM AMBULATORY - MEDICINE [facility] Social History: Smoking Status (Most current) and Tobacco Use (All prior to encounter date) This section includes the most current, and the historical, smoking and tobacco- related health factors from the [place] facility where the Encounter took place. Current Smoking Status This section includes the most current smoking, or tobacco-related health factor, from the [place] facility where the Encounter took place. Date/Time Current Smoking Status Comment Facil ity Sep 09, 2020 08:36 AM VA-TOBACCO USER EVERY DAY [facility] Tobacco Use History This section includes a history of the smoking, or tobacco-related health factors, that were collected on or before the date of the Encounter. The data comes from the [place] facility where the Encounter took place. 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 Date/Time Encounter Note(s) Provider Source Nov 01, 2023 07:25 AM PHYSICAL THERAPY DISCHARGE NOTE: LOCAL TITLE: PHYSICAL THERAPY DISCHARGE NOTE STANDARD TITLE: PHYSICAL THERAPY DISCHARGE NOTE DATE OF NOTE: NOV 01, 2023@07:25 ENTRY DATE: NOV 01, 2023@07:25:57 AUTHOR: PEGGY GARCIA EXP COSIGNER: URGENCY: STATUS: COMPLETED Initial Evaluation date:09/15/23 Progress Note Date: Treatment #: 6 Treatment time: 45' Diagnosis: Dizziness Provider: Jose STOVER Treatment Precautions: undergoing treatment for Bladder CA, L LE arterial claudication Patient identified by full name and date of SUBJECTIVE: Pt reports he's noticed a difference, I used to be nauseous and dizzy all the time. Reports he can pull out of his driveway without getting dizzy. OBJECTIVE: Functional Gait Assessment: IE , Today 2 Gait level surface 2 Change in gait speed 2 Gait with horizontal head turns 2 Gait w/ vertical head turns 2 Gait and pivot turn 2 Step over obstacle 1 Gait w/ Narrow Base of support 2 Gait with eyes closed 2 Ambulating backwards 2 Steps THERAPEUTIC EXERCISE: MINUTES: MANUAL THERAPY: MINUTES: GAIT TRAINING: MINUTES: NEUROMUSCULAR EDUCATION: MINUTES: 35' adaptation: x1 viewing nod and rot 30 x 3 in standing x2 viewing nod and rot 30 x 3 in standing EC on foam EC romberg rotation habituation in corner gait w/ head mov't all directions CANALITH REPOSITIONING: MINUTES: MODALITIES: MINUTES: [] Contraindication screen completed prior to modality [] Skin intact pre/post SELF CARE/EDUCATION: MINUTES: Patient education was provided for all aspects of care during this clinical encounter. Access Code: [email or web address] URL: [email or web address] / Date: 10/13/2023 Prepared by: Peggy Garcia Exercises - Seated Head Nod Vestibular Habituation - 1 x daily - 7 x weekly - 3 sets - 5 reps - Vestibular Habituation - Seated Horizontal Head Rotation - 3 sets - 5 reps - Standing Near Stance in Corner with Eyes Closed - 1 x daily - 7 x weekly - 3 sets - 30 hold - Standing Gaze Stabilization with Head Rotation - 3 x daily - 1 reps - 60 hold - Standing Gaze Stabilization with Head Nod - 3 x daily - 1 reps - 60 hold - Seated Gaze Stabilization with Head Rotation and Horizontal Arm Movement - 4 reps - 30 hold - Seated Gaze Stabilization with Head Nod and Vertical Arm Movement - 3 x daily - 4 reps - 30 hold ASSESSMENT: Pt has made progress in PT. Continues to have some dizziness w/ tilting head back at times, but negative for BPPV, cannot r/o circulatory. Pt w/ balance improved since beginning PT. Pt could likely benefit from continued treatment but declines as he plans to f/u for cancer and vascular surgery evaluations and plans. STG's 4 wks partially met [ ] Pt will be tested further for BPPV and treated accordingly. [x ] Pt will ambulate w/ horizontal head movements w/o gait deviation, in order to walk and look at signs. [ x] No c/o vertigo for 5 days w/ ADL's [ ] Negative positional testing LTG's 8 wks not met [ ] No c/o vertiog for 10 days w/ ADL's [ x] Pt will be I w/ HEP for vestibular ther ex. [ x] FGA score >/=20/30 PLAN: Discharge from PT this date. Pt can return at later date w/ new consult. /samara/ Peggy Garcia PT,DPT PHYSICAL THERAPIST Signed: 11/01/2023 15:25 PEGGY GARCIA [place] [facility] [place] [facility]
--- OUTSIDE RECORDS SUMMARY | 2024-10-31 08:07 | XMS_ITS | Encounter Summary ---
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 SHARE ACTIV E Feb 27, 2012 [id number] [phone] ALICE RUSSO PATIENT [employer] ([id number]) PRESCRIPT ION L4TA* Feb 27, 2012 [id number] ALICE RUSSO PATIENT [employer] ([id number]) PRESCRIPT ION Feb 27, 2012 L4TA [id number] ALICE RUSSO PATIENT MEDICARE (WNR) MEDICARE (M) PART A Apr 29, 2020 PART A [id number] ALICE RUSSO PATIENT MEDICARE (WNR) MEDICARE (M) PART B Apr 29, 2020 PART B [id number] [phone] ALICE RUSSO PATIENT MEDICARE (WNR) MEDICARE (M) PART A Apr 29, 2020 PART A [id number] ALICE RUSSO PATIENT MEDICARE (WNR) MEDICARE (M) PART B Apr 29, 2020 PART B [id number] [phone] ALICE RUSSO PATIENT Selected Encounter This section includes the information on record at [place] for the Encounter. 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 This section includes future appointments and future orders which are active, pending or scheduled. Future Appointments This section includes appointments that were scheduled to occur 6 months from the date of the Encounter, up to a maximum of 20 appointments. The data comes from all [place] treatment facilities. Appointment Date/Time Appointment Type Appointme nt Facility Name Feb 02, 2024 12:30 PM [facility]ONE [place] [facility] Apr 02, 2024 09:00 AM [facility] May 03, 2024 08:30 AM [facility] - MEDICINE [facility] May 03, 2024 03:00 PM [facility] Jun 27, 2024 11:00 AM [facility] [place] [facility] Jul 02, 2024 10:30 AM AM[place]ORY [place] [facility] [place] [facility] Jul 04, 2024 09:00 AM AM[place]ORY [place] [facility] [place] [facility] Lab Results: +/- 30 days of the encounter This section includes the Chemistry and Hematology Lab Results on record with [place] for the patient. Radiology Reports and Pathology Reports are provided separately, in subsequent sections. Lab Results This section contains the Chemistry/Hematology Results that were resulted 30 days before or 30 daysafter the date of the Encounter. Date/Time Source Result Type Result - Unit Interpretation Reference Range Comment January 04, 2024 01:53 PM [place] [facility] [place] [facility] THYROID T4 FREE(FT4) (WROX) Specimen Type: SERUM No comment entered. Ordering Provider: COMPA ELLIS Report Released Date/Time: January 03, 2024 08:02 AM Reporting [facility] [place] [facility] [address] [facility] [address] Performing Lab: [facility] [place] [facility] [address] [facility] [address] THYROID T4 FREE(FT4) (WROX) 1.25 ng/dL 0.6-1.6 January 04, 2024 01:53 PM [facility] CALCIUM Specimen Type: SERUM No comment entered. Ordering Provider: COMPA ELLIS Report Released Date/Time: January 03, 2024 08:02 AM Reporting Lab: [facility] [place] [address] [address] Performing Lab: [facility] [place] [address] [address] CALCIUM 8.5 mg/dL 8.5-10.2 January 04, 2024 01:53 PM [facility] MICROALBUMIN CREATININE RATIO PANEL Specimen Type: URINE No comment entered. Ordering Provider: COMPA ELLIS Report Released Date/Time: January 03, 2024 08:02 AM Reporting Lab: [facility] [place] [address] [address] Performing Lab: [facility] [address] [address] MICROALBUMIN/C REATININE RATIO 15.4 mg/g 0-29.9 MICROALBUMIN,Q UANTITATIVE 0.8 mg/dL RR UNAVAIL CREATININE URINE 51.94 mg/dL January 04, 2024 01:53 PM [facility] HEMOGLOBIN A1C PANEL Specimen Type: BLOOD Comment: Values obtained from A1C measurements can vary. For atypical A1C assays, a reported value of 7.0 could actually be between 6.72 and 7.28 if measured by a reference method. A reported value of 9.0 could actually be between 8.73 and 9.27. Ref: http://www.ngs p.org/CAPdata. asp Ordering Provider: COMPA ELLIS Report Released Date/Time: January 03, 2024 08:02 AM Reporting Lab: [address] [address] Performing Lab: [address] [address] HEMOGLOBIN A1C 7.4 H 4.0-5.6 January 04, 2024 01:53 PM [facility] VITAMIN D (25-OH) Specimen Type: SERUM No comment entered. Ordering Provider: COMPA ELLIS Report Released Date/Time: January 03, 2024 08:02 AM Reporting Lab: [address] [address] Performing Lab: [facility] [address] VITAMIN D (25-OH) 44 ng/mL 20-50 January 04, 2024 01:53 PM [facility] PTH INTACT Specimen Type: SERUM No comment entered. Ordering Provider: COMPA ELLIS Report Released Date/Time: January 03, 2024 08:02 AM Reporting Lab: [address] [address] Performing Lab: [address] [address] PTH INTACT 72.1 pg/mL H 10-65 January 04, 2024 01:53 PM [facility] TSH Specimen Type: SERUM No comment entered. Ordering Provider: COMPA ELLIS Report Released Date/Time: January 03, 2024 08:02 AM Reporting Lab: [facility] [address] [facility] [address] Performing Lab: [facility] [address] [facility] [address] TSH 2.11 u[IU]/mL 0.35-5.00 January 04, 2024 01:53 PM [facility] LIPID PANEL FASTING Specimen Type: SERUM No comment entered. Ordering Provider: COMPA ELLIS Report Released Date/Time: January 03, 2024 08:02 AM Reporting Lab: [facility] [address] [facility] [address] Performing Lab: [address] [address] CHOLESTEROL 106 mg/dL TRIGLYCERIDE 119 mg/dL 0-150 LDL calculated 37 mg/dL 0-129 CHOL/HDL 2.4 HDL CHOLESTEROL 45 mg/dL 40-60 January 04, 2024 01:53 PM [facility] BASIC METABOLIC PANEL (fasting) Specimen Type: SERUM No comment entered. Ordering Provider: COMPA ELLIS Report Released Date/Time: January 03, 2024 08:02 AM Reporting Lab: [address] [address] Performing Lab: [address] [address] UREA NITROGEN 18 mg/dL 7-25 GLUCOSE 197 mg/dL H 65-100 SODIUM 137 mmol/L 135-145 POTASSIUM 4.4 mmol/L 3.5-5.0 CHLORIDE 107 mmol/L 100-110 CO2 23 meq/L 20-30 CREATININE, Serum 0.98 mg/dL 0.50-1.40 eGFR(CKD-EPI 2020) 83 mL/min >60 Social History: Smoking Status (Most current) and Tobacco Use (All prior to encounter date) This section includes the most current, and the historical, smoking and tobacco- related health factors from the [place] facility where the Encounter took place. Current Smoking Status This section includes the most current smoking, or tobacco-related health factor, from the [place] facility where the Encounter took place. Date/Time Current Smoking Status Comment Guerrero ity Sep 09, 2020 08:36 AM VA-TOBACCO USER EVERY DAY [facility] Tobacco Use History This section includes a history of the smoking, or tobacco-related health factors, that were collected on or before the date of the Encounter. The data comes from the [place] facility where the Encounter took place. 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 For cases when an order for radiology services may have been completed after the date of the Encounter, the report list also includes the Radiology Reports that were completed up to30 days after date of the Encounter. The data comes from all [place] treatment facilities. Date/Time Radiology Report Provider Source Feb 02, 2024 12:42 PM RENAL AND BLADDER ULTRASOUND: ALICE RUSSO [id number] -[id number] M Exm Date: FEB 02, 2024@12:42 Req Phys: COMPA ELLIS Loc: NHM/ENDOCRINE (Req'g Loc) Img Loc: ULTRASOUND Service: Unknown [facility] , (Case [id number] COMPLETE) ULTRASOUND KIDNEYS (US Detailed) CPT:26097 Reason for Study: hyperparathyroidism (Case 427 COMPLETE) ULTRASOUND URINARY BLADDER (US Detailed) CPT:99993 Clinical History: Report Status: Verified Date Reported: FEB 02, 2024 Date Verified: FEB 02, 2024 Bond Manager E-Sig:/ES/GRETCHEN SHEPHERD JR Report: Study: Genitourinary ultrasound. Comparison: None. Findings: The right kidney has a long length of 11.0 cm. The left kidney has a long length of 12.0 cm. Cortical simple cyst of the lower pole left kidney present measuring 3.4 cm in greatest dimension. Otherwise, both kidneys appear sonographically normal with normal cortical thickness and no evidence of hydronephrosis, solid mass or shadowing stone. The urinary bladder appears sonographically normal with a prevoiding volume of 167 cc of clear urine. Normal bilateral ureteral jets are not visualized. The prostate has a normal volume of 24 cc. A normal post void residual of 8 cc is identified. No free fluid is identified in the abdomen or pelvis. Impression: No significant abnormality identified, as described above. Primary Diagnostic Code: No immediate attention required Primary Interpreting Staff: GRETCHEN SHEPHERD JR, Radiologist (Greg) /GRETCHEN ESTEVEZ JR [facility] Encounter Notes: All associated encounter notes This section contains the clinical notes associated to the Encounter. Date/Time Encounter Note(s) Provider Source January 25, 2024 11:17 AM NURSING OUTPATIENT NOTE: LOCAL TITLE: NURSING/SPECIALTY CLINIC NOTE STANDARD TITLE: NURSING OUTPATIENT NOTE DATE OF NOTE: JANUARY 25, 2024@11:17 ENTRY DATE: JANUARY 25, 2024@11:17:52 AUTHOR: ORQUIDEA FOX EXP COSIGNER: URGENCY: STATUS: COMPLETED Demographics: Patient Name: ALICE RUSSO Age: 68 Sex: MALE Race: WHITE MARITAL STATUS - DX: DM associated with pancreatic disease [place] identified with 2 identifiers: [X] Full Name [X] Date of [ ] Address [ ] [place] ID Card PATIENT PHONE - [phone] PHONE NUMBER [CELLULAR] - Is patient phone number correct, if not, enter below: [place]'s phone number: ALICE RUSSO [address] [place], [place], [address] MOST RECENT LABS: HEMOGLOBIN A1C TREND Collection DT Spec HGBA1c 01/04/2024 13:53 BLOOD 7.4 H 09/22/2023 09:59 BLOOD 7.0 H 05/31/2023 12:14 BLOOD 7.0 H 02/23/2023 09:18 BLOOD 6.8 H 08/04/2022 12:45 BLOOD 7.6 H CHEM 7 TREND LAB CUMULATIVE SELECTED Collection DT Spec GLUCOSE BUN CREATIN Sodium K+/Pot CL CO2 01/04/2024 13:53 SERUM 197 H 18 0.98 137 4.4 107 23 09/22/2023 09:59 SERUM 183 H 12 0.92 139 4.4 104 22 05/31/2023 12:14 SERUM 154 H 19 0.90 139 3.9 108 23 02/23/2023 09:18 SERUM 110 H 17 1.00 138 4.8 104 24 11/22/2022 11:03 SERUM 170 H 12 0.86 139 4.6 102 25 LAB CUMULATIVE SELECTED 2 No selection items chosen for this component. CREATININE-EGFR 01/04/24 13:53 0.98 09/22/23 09:59 0.92 05/31/23 12:14 0.90 EGFR - NONE FOUND WEIGHT: 190 lb [86.18 kg] (01/05/2024 10:18) HEIGHT: 68 in [172.7 cm] (01/05/2024 10:18) BMI: 28.9 Follow up visit for with type 2 diabetes who is here today to learn how to wear and use a Sanya 3 sensor with a reader. The following items were covered during this trainin.Setting up the reader including target range of 70 to 180 2.Applying the sensor. SN: [id number] EXP.DATE:06/28/2024 3.Set up alarms: Low @ 80 High @ 280 4.Sensor placed on back of right upper arm 5.Starting the 14 day sensor 6.Checking/scanning/must scan at least once every 8 hours- recommendation to scan 10-15 x daily 7.Reviewing the history on the reader ASSESSMENT: [place] did very well with placement of sensor. Has worn sensor in the past so did remember some of the steps. Does not have computer accessibility to upload sensor at home. wILL BRING READER TO APPOINTMENT FOR UPLOAD. /samara/ ORQUIDEA FOX RN Signed: 01/25/2024 11:26 ORQUIDEA FOX [facility]
--- OUTSIDE RECORDS SUMMARY | 2024-10-31 08:07 | XMS_ITS | Continuity of Care Document ---
Author Organization [facility] Address [address] [place] [id number] Care Team Providers Care Business Administration Instructor Name Role Phone Fercho FLETCHER, Deyvi Barron Primary Care Physician [phone] Encounter [facility] [place] Date(s): 09/11/24 - 10/11/24 [facility] [address] [place] [id number] Encounter Type: Triage Allergies, Adverse Reactions, Alerts Substance Criticality Severity Reaction Reaction Severity Status Augmentin gi upset Active Lexapro anxiety Active Immunizations Given and Recorded Vaccine Date Status Refusal Reason influenza virus vaccine, inactivated 06/27/21 Cezar rded influenza virus vaccine, inactivated 05/14/20 Cezar rded influenza virus vaccine, inactivated 07/17/18 Cezar rded SARS-CoV-2 (COVID-19) mRNA-1273 vaccine 04/16/21 R ecorded SARS-CoV-2 (COVID-19) mRNA-1273 vaccine 11/20/20 R ecorded SARS-CoV-2 (COVID-19) mRNA-1273 vaccine 10/21/20 R ecorded SARS-CoV-2 (COVID-19) mRNA BNT-162b2 vac 10/27/20 Recorded pneumococcal 13-valent vaccine 05/14/20 Recorded zoster vaccine, inactivated 06/09/18 Recorded pneumococcal 23-valent vaccine 08/29/17 Recorded tetanus/diphtheria/pertussis, acel(Tdap) 04/04/17 Recorded Medications acetaminophen 650 mg oral tablet, extended release 15 each, 0 Refill(s), 0 Refills, 06/14/24 8:55:00 AM EDT, Partial fill upon patient request if the prescription is for a schedule II opioid drug. Start Date: 06/14/24 Status: Ordered Repeat number: 1 aspirin 81 mg oral delayed release tablet 81 mg, By Mouth, Daily, Refills 0, Maintenance, 08/03/24 8:57:00 AM EST, Partial fill upon patient request if the prescription is for a schedule II opioid drug. Start Date: 08/03/24 Status: Ordered Repeat number: 1 atorvastatin 40 mg oral tablet 90 each, 0 Refill(s), TAKE 1 TABLET BY MOUTH DAILY, 0 Refills, 11/24/23 10:35:00 AM EDT, Partial fill upon patient request if the prescription is for a schedule II opioid drug. Start Date: 11/24/23 Status: Ordered Repeat number: 1 calcium (as carbonate)-vitamin D 500 mg-100 intl units oral tablet, chewable 2 tablet, Chew, Daily, # 60 tablet, 0 Refills, Maintenance, 09/29/22 2:27:00 PM EST, Chew Tablet, Partial fill upon patient request if the prescription is for a schedule II opioid drug. Start Date: 09/29/22 Status: Ordered Quantity: 60.0 Unit: tablet Repeat number: 1 cephalexin monohydrate 500 mg oral capsule 14 each, 0 Refill(s), TAKE 1 CAPSULE BY MOUTH EVERY 12 HOURS, 0 Refills, 10/10/24 2:24:00 PM EST, Partial fill upon patient request if the prescription is for a schedule II opioid drug. Start Date: 10/10/24 Status: Ordered Repeat number: 1 DilTIAZem (Eqv-Cardizem CD) 180 mg/24 hours oral capsule, extended release 90 each, 0 Refill(s), TAKE 1 CAPSULE BY MOUTH DAILY, 0 Refills, 06/14/24 8:56:00 AM EDT, Partial fill upon patient request if the prescription is for a schedule II opioid drug. Start Date: 06/14/24 Status: Ordered Repeat number: 1 docusate sodium 100 mg oral capsule 120 each, 0 Refill(s), TAKE ONE CAPSULE BY MOUTH TWICE DAILY, 0 Refills, 10/10/24 2:24:00 PM EST, Partial fill upon patient request if the prescription is for a schedule II opioid drug. Start Date: 10/10/24 Status: Ordered Repeat number: 1 famotidine 40 mg oral tablet 1 tablet = 40 mg, By Mouth, Daily at bedtime, 0 Refills, Maintenance, 11/18/20 11:48:00 AM EDT, Partial fill upon patient request if the prescription is for a schedule II opioid drug. Start Date: 11/18/20 Status: Ordered Repeat number: 1 finasteride 5 mg oral tablet 1 tablet = 5 mg, By Mouth, Daily, 0 Refills, Maintenance, 11/18/20 11:48:00 AM EDT, Partial fill upon patient request if the prescription is for a schedule II opioid drug. Start Date: 11/18/20 Status: Ordered Repeat number: 1 fluoride 1.1% topical paste 100 mL, 0 Refill(s), 0 Refills, 06/14/24 8:56:00 AM EDT, Partial fill upon patient request if the prescription is for a schedule II opioid drug. Start Date: 06/14/24 Status: Ordered Repeat number: 1 fluoride-potassium nitrate 1.1%-5% topical paste 3 Refill(s), [place] teeth for 2 minutes, morning and night. Spit, do not rinse. Do not eat or drink anything for 30 minutes following brushing., 0 Refills, 01/23/24 8:00:00 PM EDT, Partial fill upon patient request if the prescription is for a schedule II opioid drug. Start Date: 01/23/24 Status: Ordered Repeat number: 1 gabapentin 100 mg oral capsule 100 mg, 1, capsule, By Mouth, 3 times a day, # 270 capsule, Refills 0, Tot. Refills 0, Maintenance,09/11/24 3:04:00 PM EST, Route to Pharmacy Electronically, [facility] #[id number], Partial fill upon patient request if the prescription is for a schedule II opioid drug., 173, cm, 08/17/24 13:33:00 EST, Height, 78.9, kg, 08/01/24 18:39:00 EST, Dry Weight Start Date: 09/11/24 Stop Date: 12/10/24 Status: Ordered Quantity: 270.0 Unit: capsule Repeat number: 1 gabapentin 300 mg oral capsule 60 each, 0 Refill(s), TAKE 1 CAPSULE BY MOUTH TWICE DAILY, Refills 0, 10/10/24 2:23:00 PM EST, Partial fill upon patient request if the prescription is for a schedule II opioid drug. Start Date: 10/10/24 Status: Ordered Repeat number: 1 hydrocortisone 2.5% topical cream 30 Gm, 0 Refill(s), APPLY TOPICALLY TO THE AFFECTED AREA TWICE DAILY NEEDED FOR RASH, 0 Refills,06/14/24 8:56:00 AM EDT, Partial fill upon patient request if the prescription is for a schedule IIopioid drug. Start Date: 06/14/24 Status: Ordered Repeat number: 1 hydrOXYzine hydrochloride 10 mg oral tablet 30 each, 0 Refill(s), TAKE 1 TABLET BY MOUTH AT BEDTIME, 0 Refills, 06/14/24 8:56:00 AM EDT, Partial fill upon patient request if the prescription is for a schedule II opioid drug. Start Date: 06/14/24 Status: Ordered Repeat number: 1 Jardiance 10 mg oral tablet 1 tablet = 10 mg, By Mouth, Daily in AM, # 30 tablet, 0 Refills, Maintenance, 03/08/21 6:09:00 AM EDT, Tablet, Partial fill upon patient request if the prescription is for a schedule II opioid drug. Start Date: 03/08/21 Status: Ordered Quantity: 30.0 Unit: tablet Repeat number: 1 Lantus Inj = 21 units, Subcutaneous Injection, Daily in AM, 0 Refills, Maintenance, 11/13/21 10:39:00 AM EDT, Injection, Partial fill upon patient request if the prescription is for a schedule II opioid drug. Start Date: 11/13/21 Status: Ordered Repeat number: 1 levothyroxine 150 mcg (0.15 mg) oral tablet 1 tablet = 150 mcg, By Mouth, Daily, # 30 tablet, 0 Refills, Maintenance, 03/16/22 9:08:00 AM EDT, Tablet, Partial fill upon patient request if the prescription is for a schedule II opioid drug. Start Date: 03/16/22 Status: Ordered Quantity: 30.0 Unit: tablet Repeat number: 1 lisinopril 5 mg oral tablet 90 each, 0 Refill(s), TAKE 1 TABLET BY MOUTH DAILY, Refills 0, 11/24/23 10:35:00 AM EDT, Partial fill upon patient request if the prescription is for a schedule II opioid drug. Start Date: 11/24/23 Status: Ordered Repeat number: 1 LORazepam 0.5 mg oral tablet 60 each, 0 Refill(s), 0 Refills, 11/24/23 10:35:00 AM EDT, Partial fill upon patient request if the prescription is for a schedule II opioid drug. Start Date: 11/24/23 Status: Ordered Repeat number: 1 methocarbamol 500 mg oral tablet 45 each, 0 Refill(s), TAKE 1 TABLET BY MOUTH THREE TIMES DAILY NEEDED FOR MUSCLE SPASM. NO DRIVING WHILE TAKING THIS MEDICATION. DO NOT TAKE WITH ALCOHOL OR OTHER, 0 Refills, 10/10/24 2:23:00 PM EST, Partial fill upon patient request if the prescription is for a schedule II opioid drug. Start Date: 10/10/24 Status: Ordered Repeat number: 1 metoprolol 50 mg oral tablet 50 Unknown, oral, 3 Refill(s), TAKE 1 TABLET BY MOUTH TWICE DAILY, Refills 0, 08/05/24 7:00:00 PM EST, Partial fill upon patient request if the prescription is for a schedule II opioid drug. Start Date: 08/05/24 Status: Ordered Repeat number: 1 Metoprolol Tartrate 50 mg oral tablet 180 each, 0 Refill(s), TAKE 1 TABLET BY MOUTH TWICE DAILY, 0 Refills, 11/24/23 10:35:00 AM EDT, Partial fill upon patient request if the prescription is for a schedule II opioid drug. Start Date: 11/24/23 Status: Ordered Repeat number: 1 nitroglycerin 0.4 mg sublingual tablet 25 each, 0 Refill(s), TAKE 1 TABLET BY MOUTH UNDER THE TONGUE NEEDED FOR CHEST PAIN, 0 Refills, 06/14/24 8:56:00 AM EDT, Partial fill upon patient request if the prescription is for a schedule II opioid drug. Start Date: 06/14/24 Status: Ordered Repeat number: 1 NovoLOG 100 units/mL injectable solution See Instructions, PRN sliding scale, Subcutaneous Injection 3 times a day before meals, 0 Refills, Maintenance, 12/28/18 10:18:17 AM EDT Start Date: 12/28/18 Status: Ordered Repeat number: 1 oxyCODONE 5 mg oral tablet 20 each, 0 Refill(s), TAKE 1 TABLET BY MOUTH EVERY 6 HOURS FOR 5 DAYS NEEDED FOR PAIN, Refills 0, 10/10/24 2:23:00 PM EST, Partial fill upon patient request if the prescription is for a schedule IIopioid drug. Start Date: 10/10/24 Status: Ordered Repeat number: 1 tamsulosin 0.4 mg oral capsule 0.4 mg, 1, capsule, By Mouth, Daily, Refills 0, Maintenance, 11/18/20 11:52:00 AM EDT, Partial fill upon patient request if the prescription is for a schedule II opioid drug. Start Date: 11/18/20 Status: Ordered Repeat number: 1 traMADol 50 mg oral tablet 60 each, 0 Refill(s), 0 Refills, 10/10/24 2:23:00 PM EST, Partial fill upon patient request if the prescription is for a schedule II opioid drug. Start Date: 10/10/24 Status: Ordered Repeat number: 1 Viokace 10,440 units-39,150 units-39,150 units oral tablet 2-5 tablets, By Mouth, 3 times a day, Pt takes based upon food intake, 0 Refills, Maintenance, 11/18/20 11:53:00 AM EDT, Partial fill upon patient request if the prescription is for a schedule II opioid drug. Start Date: 11/18/20 Status: Ordered Repeat number: 1 warfarin 5 mg oral tablet See Instructions, Take 1 tablet by mouth once daily or as directed by coumadin clinic, # 90 tablet,3 Refills, Maintenance, 05/15/24 8:44:00 AM EDT, [facility] #[id number], Partial fill upon patient request if the prescription is for a schedule II opioid drug., 173, cm, 05/14/24 7:00:00 EDT, Height, 82, kg, 05/06/24 8:22:00 EDT, Dry Weight Start Date: 05/15/24 Status: Ordered Quantity: 90.0 Unit: tablet Repeat number: 4 Zofran 4 mg oral tablet 1 tablet = 4 mg, By Mouth, 3 times a day, # 15 tablet, 0 Refills, Maintenance, 09/25/18 6:15:43 AM EST Start Date: 09/25/18 Status: Ordered Quantity: 15.0 Unit: tablet Repeat number: 1 Problem List Condition Confirmation Course Effective Dates Status Health St atus Informant Claudication Confirmed Active CAD (coronary artery disease) Confirmed Active Bladder cancer Confirmed Active Pad Confirmed Active Paroxysmal atrial fibrillation Confirmed Active PVD (peripheral vascular disease) with claudication Confirmed Active PVD with claudication Confirmed Active DM2 (diabetes mellitus, type 2) Confirmed Active Social History Social History Type Response Smoking Status 5-9 cigarettes (betw een 1/4 to 1/2 pack)/day in last 30 days entered on: 05/14/24 Sex Sex Representation Male (finding) Patient Care team information Care Team Personnel Name: Neena Christian RN Position: [facility] RN Member Role: Primary Care Nurse Name: Deyvi Brantley MD Position: [facility] Outreach Member Role: PCP Address: [address] [place], [place] [address] [address] Telecom: Name: [address] RN Position: S RN Member Role: Primary Care Nurse Name: Rafia Murray RN Position: S RN Member Role: Primary Care Nurse Name: Constantino Sparks RN Position: S RN Member Role: Primary Care Nurse Name: Jaycee Liao RN Position: S RN Member Role: Primary Care Nurse Care Team Related Persons Name: GIVEN, NONE Name: ALEJANDRO RUSSO Name: KING RUSSO Name: YUNIEL RUSSO Insurance Providers Guarantor name: ALICE RUSSO Health Plan Information #: 1 Payer: MEDICARE PART B OUTPT Member Number: NA Policy Number: NA Group Number: NA Health Plan Information #: 2 Payer: MEDEX Member Number: NA Policy Number: NA Group Number: NA Health Plan Information #: 3 Payer: [employer] [place] [employer] Member Number: NA Policy Number: NA Group Number: NA
--- OUTSIDE RECORDS SUMMARY | 2024-10-31 08:07 | XMS_ITS | Clinical Summary ---
Author Organization [employer] Address [address] [facility] [address] [place] [address] Care Team Providers Care Primer Supervisor Name Role Phone Unavailable Primary Care Provider Unavailabl e Allergies Active Allergy Reactions Criticality Noted Date Comments Amoxicillin 07/28/2022 Amoxicillin-Pot Clavulanate Other 01/24/20 24 Other Reaction(s): N&V Clavulanic Acid 07/28/2022 Escitalopram Anxiety Low 01/24/2024 Metformin Diarrhea 05/28/2019 Medications aspirin 81 MG EC tablet Take 1 tablet by mouth Once per day. 6 Active atorvastatin (Lipitor) 80 MG tablet 40 mg. 0 Active atorvastatin (Lipitor) 40 MG tablet Take by mouth. 2 Active Calcium Carb-Cholecalci ferol 500-2.5 MG-MCG chewable tablet Chew 2 tablets. 3 Active Cardizem CD 360 MG 24 hr capsule Take by mouth. 2 Active docusate sodium (Colace) 100 MG capsule Take 100 mg by mouth 2 times daily. 4 Active empagliflozin (Jardiance) 25 MG Take by mouth. 2 Active famotidine (Pepcid) 40 MG tablet 1 Active insulin aspart (NovoLOG FLEXPEN) 100 UNIT/ML pen 3 Active Basaglar KwikPen 100 UNIT/ML pen 4 Active levothyroxine (Synthroid, Levoxyl) 150 MCG tablet Take 150 mcg by mouth. 2 Active lidocaine (Xylocaine) 5 % ointment APPLY LIBERAL AMOUNT TOPICALLY TWICE DAILY NERVE PAIN 4 Active linaCLOtide (Linzess) 145 MCG capsule Take 72 mcg by mouth before breakfast. Active lisinopril 5 MG tablet Take 1 tablet by mouth Once per day. 3 Active LORazepam (Ativan) 0.5 MG tablet 60 each, 0 Refill(s), 0 Refills, 11/24/23 10:35:00 EDT, Partial fill upon patient request if the prescription is for a schedule II opioid drug. 6 Active metoprolol tartrate (Lopressor) 100 MG tablet Take by mouth. 2 Active ondansetron (Zofran) 4 MG tablet 4 mg. 9 Active Viokace 27383-22119 units tablet Take by mouth. Ac tive tamsulosin (Flomax) 0.4 MG 24 hr capsule Take by mouth. 1 Active warfarin (Coumadin) 5 MG tablet 3 Active Sodium Fluoride (PreviDent 5000 Booster Plus) 1.1 % paste [place] teeth for 2 minutes, morning and night. Spit, do not swallow. Do not rinse. Do not eat or drink anything for 30 minutes following use. 112 g 3 4 Active acetaminophen (Tylenol) 500 MG tabletIndicatio ns:History of tooth extraction, unspecified edentulism class Take 1 tablet (500 mg) by mouth every 6 (six) hours if needed for mild pain for up to 20 doses. 20 tablet 4 Active Active Problems Problem Noted Date Diagnosed Date Arteriosclerosis of coronary artery 01/24/2024 Overview (01/24/2024): Apr 03, 2018 Entered By: ERIC MCINTOSH Comment: AMI 2004; had Angioplasty; no CABG or StentJun 2017 Entered By: ERIC MCINTOSH Comment: Dr Strong/Cardiology Bladder cancer 01/24/2024 Overview (01/24/2024): Nov 11, 2020 Entered By: ERIC MCINTOSH Comment: 11/05/20 - Dr. 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 Cervical radiculopathy 01/24/2024 Overview (01/24/2024): Aug 13, 2016 Entered By: JUAN MARISCAL Comment: Surg Fusion C3 - - C5; Chronic pancreatitis 01/24/2024 Overview (01/24/2024): Mar 15, 2019 Entered By: ERIC MCINTOSH Comment: Davon 08/2018 - Dr Ward 2018 Entered By: ERIC MCINTOSH Comment: Scheduled to see Chronic Pancreatitis specialistend of 02/2019 at [facility] in [place] Other chronic pancreatitis 01/24/2024 Class 1 obesity 01/24/2024 Combined forms of age-related cataract, bilatera l 01/24/2024 Dizziness and giddiness 01/24/2024 Encounter for fitting and adjustment of hearing aid 01/24/2024 Encounter for general adult medical examination without abnormal findings 01/24/2024 Encounter for fitting and ad justment of spectacles and contact lenses 01/24/2024 Food insecurity 01/24/2024 Hyperparathyroidism 01/24/2024 Ingrowing nail 01/24/2024 Limping 01/24/2024 Localized osteoarthrosis 01/24/2024 Overview (01/24/2024): Aug 13, 2016 Entered By: JUAN MARISCAL Comment: Primarily Knees, Low Back; R Knee [facility] 2015 Entered By: JUAN MARISCAL Comment: has seen Private Ortho; Received Inj's Knees Low bone density 01/24/2024 Meniere's disease, unspecified ear 01/24/2024 Other peripheral vertigo, unspecified ear 2023 Meniere's disease 01/24/2024 Overview (01/24/2024): Oct 14, 2016 Entered By: JUAN MARISCAL Comment: Ativan Abates Acute Sx; is Severe (gets Drop Attacks )Oct 14, 2016 Entered By: JUAN MARISCAL Comment: Saw ENT, [facility]; also do PT at [place] in NOV 12 Mixed hyperlipidemia 01/24/2024 Tinea unguium 01/24/2024 Onychomycosis of toenail 01/24/2024 Other disorders of optic ner ve, not elsewhere classified, bilateral 01/24/2024 Overweight 01/24/2024 Paroxysmal atrial fibrillation 01/24/2024 Essential (primary) hypertension 01/24/2024 Hypertension 01/24/2024 Sciatica 01/24/2024 Overview (01/24/2024): Apr 04, 2017 Entered By: ERIC MCINTOSH Comment: Radicular Sx LLE- Fusion L5- S1 2005 Sensorineural hearing loss, bilateral 01/24/2024 Tobacco use disorder, continuous 01/24/2024 Overview (01/24/2024): Feb 01, 2018 Entered By: ERIC MCINTOSH Comment: Quit 08/19/17 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 01/24/2024 Diabetes mellitus due to und erlying condition without complications 01/24/2024 Type 2 diabetes mellitus without complications 0 01/24/2024 Other specified diabetes idris litus with diabetic peripheral angiopathy with gangrene 01/24/2024 Carcinoma of bladder 11/02/2022 Peripheral vascular disease 11/02/2022 Overview (01/24/2024): Aug 13, 2016 Entered By: JUAN MARISCAL Comment: Femoral-Popliteal By-Pass, R Side 2005;Apr 04, 2017 Entered By: ERIC MCINTOSH Comment: Stents Placed Left Leg 2016 Entered By: ERIC MCINTOSH Comment: Signif Stenosis of Carotids B/L; not Surg Case yet as of Sep Entered By: ERIC MCINTOSH Comment: Dr Reddy/Vascular Hypothyroidism 03/23/2022 Type 2 diabetes mellitus 03/23/2022 Malignant neoplasm of overlapping sites of bladd er 11/17/2020 Vertigo 01/21/2015 Overview (01/24/2024): Vertigo Social History Tobacco Use Types Packs/Day Years Used Date Smoking Tobacco: Every Day Cigarettes Smokeless Tobacco: Never Tobacco Cessation:Ready to Q uit: Not Asked; Counseling Given: Not Answered Alcohol Use Standard Drinks/Week Comments Never 0 (1 standard drink = 0.6 oz pur e alcohol) Sex and Gender Information Value Date Recorded Sex Assigned at Male 06/28/2022 10:35 AM EDT Legal Sex Male 10:35 AM EDT Gender Identity Male 06/28/2022 10:35 AM EDT Sexual Orientation Straight 06/28/2022 10 :35 AM EDT Last Filed Vital Signs Vital Sign Reading Time Taken Comments Blood Pressure 95/60 04/23/2024 3:01 PM EDT Pulse - - Temperature - - Respiratory Rate - - Oxygen Saturation - - Inhaled Oxygen Concentration - - Weight - - Height - - Body Mass Index - - Plan of Treatment Health Maintenance Due Date Last Done Comments CT Colonography 1955 Colonoscopy 1955 Colorectal Cancer Screening 1955 Dental Prophylaxis 1955 Depression Screening 1955 Diabetes: Hemoglobin A1C 1955 FIT DNA/Cologuard 1955 FIT 1955 FOBT 1955 Lipid Panel 1955 SDOH Screening 1955 Sigmoidoscopy 1955 Diabetes: Foot Exam 1965 Eye Exam 1965 Alcohol/Substance Use Screening 1967 Hepatitis C Screening 1973 Diabetes: Urine Protein Screening 1974 Hepatitis A Vaccines (1 of 2 - Risk 2-dose series) 1974 RSV Patients and Patients Aged 60 years or older (1 - Risk 60-74 years 1-dose series) 2015 COVID-19 Vaccine ( season) 2024 08/31/2022, 01/13/2022, 04/16/2021, Additional history exists Dental Oral Exam 07/27/2024 01/24/2024, 11/28/2018 Dental X-Ray: Bitewings 01/24/2025 01/24/20 24, 06/03/2022, 11/28/2018 Tobacco Screening 04/23/2025 04/23/2024 Dental X-Ray: Full Mouth 06/04/2025 06/03/2022, 09/2018 DTaP/Tdap/Td Vaccines (2 - Td or Tdap) 04/04/2027 04/04/2017 Zoster Vaccines Completed 06/09/2018, 08/2017, 11/27/2017 Influenza Vaccine Completed 06/29/2024, , 07/05/2022, Additional history exists Pneumococcal Vaccine: 50+ Years Completed 09/26/2024, 05/14/2020 HIB Vaccines Aged Out No longer eligi ble based on patient's age to complete this topic HPV Vaccines Aged Out No longer eligi ble based on patient's age to complete this topic Hepatitis B Vaccines Aged Out No long er eligible based on patient's age to complete this topic IPV Vaccines Aged Out No longer eligi ble based on patient's age to complete this topic Meningococcal Vaccine Aged Out No lauryn richar eligible based on patient's age to complete this topic RSV under 20 months Aged Out No longe r eligible based on patient's age to complete this topic Rotavirus Vaccines Aged Out No longer eligible based on patient's age to complete this topic Procedures Procedure Name Priority Date/Time Associated Diagnosis Comments BITEWINGS - 3 RADIOGRAPHIC IMAGES Routine 01/24/2024 9:00 AM EDT Dental caries Partial edentulism, class I PERIODIC ORAL EVALUATION - ESTABLISHED PATIENT Routine 01/24/2024 9:00 AM EDT Dental caries Partial edentulism, class I INTRAORAL - COMPLETE SERIES OF RADIOGRAPHIC IMAGES Routine 06/03/2022 12:00 AM EDT from Last 3 Months or Most Recently Relevant to Health Maintenance Insurance [facility]AL - [facility]
--- OUTSIDE RECORDS SUMMARY | 2024-10-31 08:08 | XMS_ITS | Encounter Summary ---
Author Name [facility] [place] Organization [facility] [place] Address [address] [place] [id number] Care Team Providers Care Digital Photographer Name Role Phone MARICEL ELIAS Primary Care [...] SUPPLEMEN YAMILKA MEDEX 2 Apr 29, 2020 [id number] [phone] ALICE RUSSO PATIENT [place]BS [place] MEDICARE SUPPLEMEN YAMILKA MEDEX 2 Apr 29, 2020 [id number] ALICE RUSSO PATIENT BCBS [facility] CE ORGANIZ [facility] SHARE ACTIV E Feb 27, 2012 [id number] ALICE RUSSO PATIENT [employer] ([id number]) PRESCRIPT ION L4TA* Feb 27, 2012 [id number] ALICE RUSSO PATIENT [employer] ([id number]) PRESCRIPT ION Feb 27, 2012 L4TA [id number] ALICE RUSSO PATIENT MEDICARE (WNR) MEDICARE (M) PART B Apr 29, 2020 PART B [id number] [phone] ALICE RUSSO PATIENT MEDICARE (WNR) MEDICARE (M) PART A Apr 29, 2020 PART A [id number] [id number] ALICE RUSSO PATIENT MEDICARE (WNR) MEDICARE (M) PART A Apr 29, 2020 PART A [id number] ALICE RUSSO PATIENT MEDICARE (WNR) MEDICARE (M) PART B Apr 29, 2020 PART B [id number] ALICE RUSSO PATIENT Selected Encounter This section includes the information on record at ME for the Encounter. Date/Time Encounter Type Encounter Description Reason Provider Source Oct 27, 2024 09:31 AM SYNCH AUDIO-ONLY EST MOD 30 TELEPHONE/MEDICINE ICD-10-CM E04.1 Nontoxic single thyroid nodule COMPA ELLIS Mainor Encounter Template Text not used by ME Assessments - Encounter Diagnoses This section includes the primary and secondary diagnoses documented for the Encounter. Date/Time Primary/Secondary Diagnosis Diagnosis Name Provider Source Oct 27, 2024 09:31 AM PRIMARY Nontoxic single thyroid nodule COMPA ELLIS [place] [facility] [place] [facility] Plan of Treatment: Future Appointments (+ 6 months) and Future Tests (+/- 45 days) The Plan of Treatment section includes future care activities for the patient from all ME treatmentfacilities. This section includes future appointments and future orders which are active, pending or scheduled. Future Appointments This section includes appointments that were scheduled to occur 6 months from the date of the Encounter, up to a maximum of 20 appointments. The data comes from all ME treatment facilities. Appointment Date/Time Appointment Type Appointme nt Facility Name Nov 30, 2024 09:30 AM AMBULATORY - NONE [facility] [place] [facility] Dec 24, 2024 08:00 AM AMBULATORY - MEDICINE [facility] [place] [facility] Dec 24, 2024 09:30 AM AMBULATORY - MEDICINE [facility] [place] [facility] January 07, 2025 09:00 AM AMBULATORY - MEDICINE ME [facility] [place] [facility] January 24, 2025 08:30 AM AMBULATORY - MEDICINE [facility] Active, Pending, and Scheduled Orders This section includes a listing of several types of active, pending, and scheduled orders, including clinic medications orders, diagnostic test orders, procedure orders and consult orders; where the start date of the order is 45 days before the date of the Encounter or 45 days after the date of theEncounter. The data comes from all ME treatment facilities. Test Date/Time Test Type Test Details Facility Name Oct 27, 2024 12:00 AM Laboratory - Chemi stry Order PT & INR (PROTIME) BLOOD (BLUE-PLASMA) [facility] Oct 27, 2024 12:00 AM Laboratory - Chemi stry Order CBC AND DIFF (AUTO) BLOOD (LAV-BLOOD) [facility] Oct 27, 2024 12:00 AM Laboratory - Chemi stry Order PTT BLOOD (BLUE-PLASMA) [facility] Oct 27, 2024 09:25 AM Consult Order COMMUNITY CARE-INTERVENTIONAL RADIOLOGY Cons [employer] [facility] Nov 30, 2024 09:30 AM Imaging - Ultrasou nd Order CAROTID DUPLEX BILAT [facility] Social History: Smoking Status (Most current) and Tobacco Use (All prior to encounter date) This section includes the most current, and the historical, smoking and tobacco- related health factors from the ME facility where the Encounter took place. Current Smoking Status This section includes the most current smoking, or tobacco-related health factor, from the ME facility where the Encounter took place. Date/Time Current Smoking Status Comment Facil ity Jun 27, 2024 11:00 AM ME-TOBACCO NEVER U SED OTHER TYPE [facility] Tobacco Use History This section includes a history of the smoking, or tobacco-related health factors, that were collected on or before the date of the Encounter. The data comes from the ME facility where the Encounter took place. 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 [facility] [place] [facility] Jun 27, 2024 11:00 AM VA-TOBACCO USE MICHELLE RY DAY CIGARETTES [facility] [place] [facility] Jun 27, 2024 11:00 AM VA-TOBACCO USE MED NO [facility] [place] [facility] Sep 09, 2020 08:36 AM VA-TOBACCO DOESNT USE WI 30 MIN WAKEUP [facility] [place] [facility] Sep 09, 2020 08:36 AM VA-TOBACCO USE 30 YEARS OR MORE [facility] [place] [facility] Sep 09, 2020 08:36 AM VA-TOBACCO USE ADVICE [facility] [place] [facility] Sep 09, 2020 08:36 AM 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 The data comes from all ME treatment facilities. 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 22 images were received by the ME National Teleradiology Program (NTP) for interpretation. FINDINGS: Overall Thyroid Gland: Size: Within normal limits. Echotexture: Heterogenous. Vascularity: Normal. Right Thyroid Lobe: Size: 2.8 x 1.3 x 1.2 cm. Nodules: None. Left Thyroid Lobe: Size: 4 x 1.3 x 1.7 cm. Nodules: There is a nodule within the left inferior thyroid which measures 1.2 cm and which demonstrates solid morphology, hypoechoic echogenicity, and coarse calcifications with an ill-defined border.TR4. Thyroid Isthmus: Thickness: 0.4 cm. Nodules: None. Lymph Nodes: Not assessed. Impression: There is a 1.2 cm TI-RADS 4 nodule in the left thyroid lobe which appears stable compared to CT neck from 2022. Continued surveillance is recommended. READING PHYSICIAN: Christiano Camacho M.D. -[id number] 10/24/2024 12:43 [facility] National Teleradiology Program [phone] (For Medical Practitioner Use Only) Attention Patients / Veterans: If you have questions or concerns about these test results, please contact your ordering provider or primary care team. Primary Diagnostic Code: NO ALERT REQUIRED Primary Interpreting Staff: RADIOLOGY,OUTSIDE SERVICE, Staff Physician / RADIOLOGY,OUTSIDE SERVICE [facility] Encounter Notes: All associated encounter notes This section contains the clinical notes associated to the Encounter. Date/Time Encounter Note(s) Provider Source Oct 27, 2024 09:31 AM PHYSICIAN NOTE: LOCAL TITLE: NOTE STANDARD TITLE: PHYSICIAN NOTE DATE OF NOTE: OCT 27, 2024@09:31 ENTRY DATE: OCT 27, 2024@09:31:45 AUTHOR: COMPA ELLIS COSIGNER: URGENCY: STATUS: COMPLETED NOTE Has ADDENDA OCT 24, 2024 ULTRASOUND NECK (THYROID,HEAD,SOFT TISSUE) HISTORY: multinodular goiter COMPARISON: CT neck 10/25/2022 FINDINGS: Overall Thyroid Gland: Size: Within normal limits. Echotexture: Heterogenous. Vascularity: Normal. Right Thyroid Lobe: Size: 2.8 x 1.3 x 1.2 cm. Nodules: None. Left Thyroid Lobe: Size: 4 x 1.3 x 1.7 cm. Nodules: There is a nodule within the left inferior thyroid which measures 1.2 cm and which demonstrates solid morphology, hypoechoic echogenicity, and coarse calcifications with an ill-defined border.TR4. Thyroid Isthmus: Thickness: 0.4 cm. Nodules: None. Lymph Nodes: Not assessed. Impression: There is a 1.2 cm TI-RADS 4 nodule in the left thyroid lobe which appears stable compared to CT neck from 2022. Continued surveillance is recommended. This is an area where TIRADS and [place] Thyroid association differ. By IRA guidance, this is a highly suspicious lesion, for which FNA is advised over 1 CM. Referred to [facility] for FNA and sample to be taken for AFIRMA to be sent if pathology not benign. Pt understands and agrees with plan. CBC PT PTT prior. Stop asa and coumadin for a week prior to procedure. Pt would like to speak with PCP about getting a carotid ultrasound. 15 min telephone encounter. /odell ELLIS MD STAFF PHYSICIAN Signed: 10/27/2024 09:33 Receipt Acknowledged By: 10/29/2024 06:24 /TANMAY Alves DNP, OSWALD Primary Care Nurse Practitioner 10/29/2024 ADDENDUM STATUS: COMPLETED alert to RN, please let know, consult placed for carotid u/s. thank you. /TANMAY Alves DNP, OSWALD Primary Care Nurse Practitioner Signed: 10/29/2024 06:25 COMPA ELLIS [facility]
--- OUTSIDE RECORDS SUMMARY | 2024-10-31 08:08 | XMS_ITS | Encounter Summary ---
Author Name [facility] [place] [facility] [place] Organization [facility] [place] Address [address] [place] [address] Care Team Providers Care Health Advisor Name Role Phone ELIASMARICEL Primary Care Provider Unavaila ble Insurance Providers: [...] SUPPLEMEN YAMILKA MEDEX 2 Apr 29, 2020 [id number] ALICE RUSSO PATIENT BCBS [place] MEDICARE SUPPLEMEN YAMILKA MEDEX 2 Apr 29, 2020 [id number] ALICE RUSSO BCBS [facility] CE ORGANIZ [facility] SHARE ACTIV E Feb 27, 2012 [id number] ALICE RUSSO PATIENT [employer] ([id number]) PRESCRIPT ION L4TA* Feb 27, 2012 L4TA [id number] ALICE RUSSO PATIENT [employer] ([id number]) PRESCRIPT ION Feb 27, 2012 L4TA [id number] ALICE RUSSO PATIENT MEDICARE (WNR) MEDICARE (M) PART A Apr 29, 2020 PART A [id number] ALICE RUSSO PATIENT MEDICARE (WNR) MEDICARE (M) PART B Apr 29, 2020 PART B [id number] [id number] [id number] ALICE RUSSO PATIENT MEDICARE (WNR) MEDICARE (M) PART A Apr 29, 2020 PART A [id number] ALICE RUSSO PATIENT MEDICARE (WNR) MEDICARE (M) PART B Apr 29, 2020 PART B [id number] ALICE RUSSO PATIENT Selected Encounter This section includes the information on record at MD for the Encounter. 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 Date/Time Primary/Secondary Diagnosis Diagnosis Name Provider Source Oct 24, 2024 05:36 PM PRIMARY Oth disorders of optic nerve, NEC, bilateral GLADIS TIM [facility] Plan of Treatment: Future Appointments (+ 6 months) and Future Tests (+/- 45 days) The Plan of Treatment section includes future care activities for the patient from all MD treatmentfacilities. This section includes future appointments and future orders which are active, pending or scheduled. Future Appointments This section includes appointments that were scheduled to occur 6 months from the date of the Encounter, up to a maximum of 20 appointments. The data comes from all MD treatment facilities. Appointment Date/Time Appointment Type Appointme nt Facility Name Nov 30, 2024 09:30 AM [facility] Dec 24, 2024 08:00 AM [facility] Dec 24, 2024 09:30 AM [facility] January 07, 2025 09:00 AM AMBULATORY - MEDICINE [facility] January 24, 2025 08:30 AM AMBULATORY - MEDICINE [facility] Active, Pending, and Scheduled Orders This section includes a listing of several types of active, pending, and scheduled orders, including clinic medications orders, diagnostic test orders, procedure orders and consult orders; where the start date of the order is 45 days before the date of the Encounter or 45 days after the date of theEncounter. The data comes from all MD treatment facilities. Test Date/Time Test Type Test Details Facility Name Oct 27, 2024 12:00 AM Laboratory - Chemi stry Order PT & INR (PROTIME) BLOOD (BLUE-PLASMA) [facility] Oct 27, 2024 12:00 AM Laboratory - Chemi stry Order PTT BLOOD (BLUE-PLASMA) [facility] Oct 27, 2024 12:00 AM Laboratory - Chemi stry Order CBC AND DIFF (AUTO) BLOOD (LAV-BLOOD) [facility] Oct 27, 2024 09:25 AM Consult Order COMMUNITY CARE-INTERVENTIONAL RADIOLOGY Cons [facility] Therapist's Choice [facility] Nov 30, 2024 09:30 AM Imaging - Ultrasou nd Order CAROTID DUPLEX BILAT [facility] Social History: Smoking Status (Most current) and Tobacco Use (All prior to encounter date) This section includes the most current, and the historical, smoking and tobacco- related health factors from the MD facility where the Encounter took place. Current Smoking Status This section includes the most current smoking, or tobacco-related health factor, from the MD facility where the Encounter took place. Date/Time Current Smoking Status Comment Facil ity Jun 27, 2024 11:00 AM MD-TOBACCO USE MICHELLE RY DAY CIGARETTES [facility] Tobacco Use History This section includes a history of the smoking, or tobacco-related health factors, that were collected on or before the date of the Encounter. The data comes from the MD facility where the Encounter took place. 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 [facility] [place] [facility] Jun 27, 2024 11:00 AM VA-TOBACCO USE MICHELLE RY DAY CIGARETTES [facility] Jun 27, 2024 11:00 AM VA-TOBACCO USE MED NO [facility] [place] [facility] Sep 09, 2020 08:36 AM VA-TOBACCO DOESNT USE WI 30 MIN WAKEUP [facility] Sep 09, 2020 08:36 AM VA-TOBACCO USE 30 YEARS OR MORE [facility] [place] [facility] Sep 09, 2020 08:36 AM VA-TOBACCO USE ADVICE [facility] Sep 09, 2020 08:36 AM VA-TOBACCO USE 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 The data comes from all [place] treatment facilities. 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 22 images were received by the MD National Teleradiology Program (NTP) for interpretation. FINDINGS: [...] is recommended. READING PHYSICIAN: Christiano Camacho M.D. -[phone] 10/24/2024 12:43 [facility] National Teleradiology Program [phone] (For Medical Practitioner Use Only) Attention Patients / Veterans: If you have questions or concerns about these test results, please contact your ordering provider or primary care team. Primary Diagnostic Code: NO ALERT REQUIRED Primary Interpreting Staff: RADIOLOGY,OUTSIDE SERVICE, Staff Physician / RADIOLOGY,OUTSIDE SERVICE [facility] Encounter Notes: All associated encounter notes This section contains the clinical notes associated to the Encounter. 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 Optic nerve OCT right eye: Average retinal nerve fiber layer thickness is 92 ??m with average cup-to-disc ratio of 0.73 and vertical cup-to-disc ratio of 0.68. Disc area measures 1.83 mm??. There is no evidence of nerve fiber layer loss or defect in any quadrant right eye. Optic nerve OCT left eye: Average retinal nerve fiber layer thickness is 89 ??m with average cup-to-disc ratio of 0.72 and vertical cup-to-disc ratio of 0.67. Disc area is similar in size measuring 1.93 mm??. Again there is no evidence of nerve fiber layer loss or defect in any quadrant either eye. Stable optic nerve OCT each eye consistent with previous imaging study. Will continue to monitor his bilateral disorders the optic nerve not classified elsewhere. /samara/ Mervin Tim OD CHIEF OF OPTOMETRY Signed: 10/24/2024 17:36 MERVIN TIM CNTRL [facility]
--- OUTSIDE RECORDS SUMMARY | 2024-10-31 08:08 | XMS_ITS | Encounter Summary ---
Author Name [facility] Organization [facility] Address [address] [place] [id number] Care Team Providers Care [facility] Manager Name Role Phone MARICEL ELIAS Primary Care [...] SUPPLEMEN YAMILKA MEDEX 2 Apr 29, 2020 [id number] [phone] ALICE RUSSO PATIENT [place] SUPPLEMEN YAMILKA MEDEX 2 Apr 29, 2020 [id number] ALICE RUSSO PATIENT BCBS FORMERLY [facility] ACTIV E Feb 27, 2012 [id number] ALICE RUSOS PATIENT [employer] ([id number]) PRESCRIPT ION L4TA* Feb 27, 2012 [id number] ALICE RUSSO PATIENT [employer] ([id number]) PRESCRIPT ION Feb 27, 2012 [id number] ALICE RUSSO PATIENT MEDICARE (WNR) MEDICARE (M) PART B Apr 29, 2020 PART B [id number] [phone] ALICE RUSSO PATIENT MEDICARE (WNR) MEDICARE (M) PART A Apr 29, 2020 PART A [id number] ALICE RUSSO PATIENT MEDICARE (WNR) MEDICARE (M) PART A Apr 29, 2020 PART A [id number] ALICE RUSSO PATIENT MEDICARE (WNR) MEDICARE (M) PART B Apr 29, 2020 PART B [id number] [phone] ALICE RUSSO PATIENT Selected Encounter This section includes the information on record at [place] for the Encounter. Date/Time Encounter Type Encounter Description Reason Provider Source January 05, 2024 10:30 AM OFFICE O/P EST MOD 30 MIN ENDOCRINOLOGY ICD-10-CM E08.9 Diabetes due to underlying condition w/o complications ELLISCOMPA Mainor Encounter Template Text not used by ME Assessments - Encounter Diagnoses This section includes the primary and secondary diagnoses documented for the Encounter. 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 [facility] [place] [facility] January 05, 2024 12:36 PM SECONDARY Disorder of bone density and structure, unspecified [facility] [place] [facility] January 05, 2024 12:36 PM SECONDARY Essential (primary) hypertension [facility] [place] [facility] January 05, 2024 12:36 PM SECONDARY Hyperlipidemia, unspecified [facility] [place] [facility] January 05, 2024 12:36 PM SECONDARY Hyperparathyroidis m[facility] unspecified [facility] [place] [facility] January 05, 2024 12:36 PM SECONDARY Hypothyroidism, unspecified [facility] [place] [facility] January 05, 2024 12:36 PM SECONDARY Overweight [facility] [place] [facility] Plan of Treatment: Future Appointments (+ 6 months) and Future Tests (+/- 45 days) The Plan of Treatment section includes future care activities for the [facility] This section includes future appointments and future orders which are active, pending or scheduled. Future Appointments This section includes appointments that were scheduled to occur 6 months from the date of the Encounter, up to a maximum of 20 appointments. The data comes from all [place] treatment facilities. Appointment Date/Time Appointment Type Appointme nt Facility Name January 25, 2024 11:00 AM AMBULATORY - MEDICINE [facility] [place] [facility] Feb 02, 2024 12:30 PM AMBULATORY - NONE [facility] [place] [facility] Apr 02, 2024 09:00 AM AMBULATORY - MEDICINE [facility] [place] [facility] May 03, 2024 08:30 AM [facility] May 03, 2024 03:00 PM [facility]INE [facility] Jun 27, 2024 11:00 AM AMBULATORY - MEDICINE [facility] [place] [facility] Jul 02, 2024 10:30 AM AMBULATORY - MEDICINE [facility] [place] [facility] Jul 04, 2024 09:00 AM [facility] Lab Results: +/- 30 days of the encounter This section includes the Chemistry and Hematology Lab Results on record with ME for the patient. Radiology Reports and Pathology Reports are provided separately, in subsequent sections. Lab Results This section contains the Chemistry/Hematology Results that were resulted 30 days before or 30 daysafter the date of the Encounter. Date/Time Source Result Type Result - Unit Interpretation Reference Range Comment January 04, 2024 01:53 PM [facility] THYROID T4 FREE(FT4) (WROX) Specimen Type: SERUM No comment entered. Ordering Provider: COMPA ELLIS Report Released Date/Time: January 03, 2024 08:02 AM Reporting Lab: [facility] [address] [facility] [address] Performing Lab: [facility] [address] [facility] [address] THYROID T4 FREE(FT4) (WROX) 1.25 ng/dL 0.6-1.6 January 04, 2024 01:53 PM [facility] HEMOGLOBIN A1C PANEL Specimen Type: BLOOD [...] January 03, 2024 08:02 AM Reporting Lab: [facility] [address] [facility] [address] Performing Lab: [address] [address] HEMOGLOBIN A1C 7.4 H 4.0-5.6 January 04, 2024 01:53 PM [facility] MICROALBUMIN CREATININE RATIO PANEL Specimen Type: URINE No comment entered. Ordering Provider: COMPA ELLIS Report Released Date/Time: January 03, 2024 08:02 AM Reporting Lab: [facility] [address] [facility] [address] Performing Lab: [facility] [address] [facility] [address] MICROALBUMIN/C REATININE RATIO 15.4 mg/g 0-29.9 MICROALBUMIN,Q UANTITATIVE 0.8 mg/dL RR UNAVAIL CREATININE URINE 51.94 mg/dL January 04, 2024 01:53 PM [facility] CALCIUM Specimen Type: SERUM No comment entered. Ordering Provider: COMPA ELLIS Report Released Date/Time: January 03, 2024 08:02 AM Reporting Lab: [facility] [address] [facility] [address] Performing Lab: [facility] [address] CALCIUM 8.5 mg/dL 8.5-10.2 January 04, 2024 01:53 PM [facility] PTH INTACT Specimen Type: SERUM No comment entered. Ordering Provider: COMPA ELLIS Report Released Date/Time: January 03, 2024 08:02 AM Reporting Lab: [facility] [address] [facility] [address] Performing Lab: [facility] [address] [facility] [address] PTH INTACT 72.1 pg/mL H 10-65 January 04, 2024 01:53 PM [facility] VITAMIN D (25-OH) Specimen Type: SERUM No comment entered. Ordering Provider: COMPA ELLIS Report Released Date/Time: January 03, 2024 08:02 AM Reporting Lab: [facility] [address] [facility] [address] Performing Lab: [address] [address] VITAMIN D (25-OH) 44 ng/mL 20-50 January 04, 2024 01:53 PM [facility] LIPID PANEL FASTING Specimen Type: SERUM No comment entered. Ordering Provider: COMPA ELLIS Report Released Date/Time: January 03, 2024 08:02 AM Reporting Lab: [facility] [address] [facility] [address] Performing Lab: [address] [address] CHOLESTEROL 106 mg/dL TRIGLYCERIDE 119 mg/dL 0-150 LDL calculated 37 mg/dL 0-129 CHOL/HDL 2.4 HDL CHOLESTEROL 45 mg/dL 40-60 January 04, 2024 01:53 PM [facility] BASIC METABOLIC PANEL (fasting) Specimen Type: SERUM No comment entered. Ordering Provider: COMPA ELLIS Report Released Date/Time: January 03, 2024 08:02 AM Reporting Lab: [facility] [address] [facility] [address] Performing Lab: [address] [address] UREA NITROGEN 18 mg/dL 7-25 GLUCOSE 197 mg/dL H 65-100 SODIUM 137 mmol/L 135-145 POTASSIUM 4.4 mmol/L 3.5-5.0 CHLORIDE 107 mmol/L 100-110 CO2 23 meq/L 20-30 CREATININE, Serum 0.98 mg/dL 0.50-1.40 eGFR(CKD-EPI 2020) 83 mL/min >60 January 04, 2024 01:53 PM [facility] TSH Specimen Type: SERUM No comment entered. Ordering Provider: COMPA ELLIS Report Released Date/Time: January 03, 2024 08:02 AM Reporting Lab: [facility] [address] [facility] [address] Performing Lab: [facility] [address] [facility] [address] TSH 2.11 u[IU]/mL 0.35-5.00 Vital Signs: All taken on the encounter date This section contains inpatient and outpatient Vital Signs collected on the date of the Encounter. Date/Time Temperature Pulse Blood Pressure Respiratory Rate SP02 Pain Height Weight Body Mass Index Source January 05, 2024 10:18 AM 98.1 75 132/74 16 95 0 68 190 29 [facility] Social History: Smoking Status (Most current) and [...] 2020 08:36 AM VA-TOBACCO USER EVERY DAY [facility] Tobacco Use History This section includes a history of the smoking, or tobacco-related health factors, that were collected on or before the date of the Encounter. The data comes from the [place] facility where the Encounter took place. 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 [facility] Sep 09, 2020 08:36 AM VA-TOBACCO USE MED NO [facility] Sep 09, 2020 08:36 AM ME-TOBACCO USER EVERY DAY [facility] Radiology Reports: +/- 30 days of [...] PM RENAL AND BLADDER ULTRASOUND: ALICE RUSSO [id number] -[id number] M Exm Date: FEB 02, 2024@12:42 Req Phys: COMPA ELLIS Loc: NHM/ENDOCRINE (Req'g Loc) Img Loc: ULTRASOUND Service: Unknown [facility] , (Case [id number] COMPLETE) ULTRASOUND KIDNEYS (US Detailed) CPT:20853 Reason for Study: hyperparathyroidism (Case 427 COMPLETE) ULTRASOUND URINARY BLADDER (US Detailed) CPT:54065 Clinical History: Report Status: Verified Date Reported: FEB 02, 2024 Date Verified: FEB 02, 2024 Sail Finisher Hand E-Sig:/ES/GRETCHEN SHEPHERD JR Report: Study: Genitourinary ultrasound. [...] Primary Interpreting Staff: GRETCHEN SHEPHERD JR, Radiologist (Sail Finisher Hand) /GRETCHEN ESTEVEZ JR [facility] Encounter Notes: All associated encounter notes This section contains the clinical notes associated to the Encounter. 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 Thank you. 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 Has had falls. No fractures. Taking dairy rarely. Takes calcium carbonate 500 mg daily. Saw vascular service for LLE recently. EMG is planned. No temp intolerance, Chronic constipation, atrial fibrillation, no tremor. Taking levothyroxine 175 mcg daily Takes thyroid on an empty stomach, not with calcium. All endocrine labs were reviewed with the patient. Jan 04 2024 TSH 2.11 uIU/mL .35 - 5 Free T4 1.25 Jan 04 2024 GLUCOSE 197 H mg/dL 65 - 100 BUN 18 mg/dL 7 - 25 CREATININE 0.98 mg/dL .5 - 1.4 eGFR(IDMS) Ref: >=60 CREAT mg/dL .5 - 1.5 eGFR See Eval Ref: See Eval Sodium 137 mmol/L 135 - 145 K+/Pot 4.4 mmol/L 3.5 - 5 CL 107 mmol/L 100 - 110 CO2 23 mEq/L 20 - 30 CA 8.5 mg/dL 8.5 - 10.2 [employer]ci mg/dL 3.5 - 7.2 May 31, 2023@12:14 PTH INTACT: 69.7 H pg/mL not recent January 04, 2024@13:53 PTH INTACT: 72.1 H pg/mL JANUARY 18, 2022 EXAM: Bone Mineral Density (BMD) HISTORY: Screening for osteoporosis PRIOR: None HIP: BMD of 0.83, T score -0.7 L-SPINE: BMD of 1.2, T score 1.0 Barriers/s supports for care: Lives alone. Meals are variable, due to variable ability to eat. Medications for diabetes: empagliflozin INSULIN,ASPART(EQV-NOVLG)100UN /ML FLXPEN INJECT INSULIN ACTIVE SUBCUTANEOUSLY THREE TIMES A DAY FOR DIABETES FOLLOWS: 1 UNIT PER 7 GM OF CARBS AT BREAKFAST, 1 UNIT PER 6 GM OF CARBS AT LUNCH, 1 UNIT PER 8 GM OF CARBS AT DINNER. glargine 21 units daily BG readings: CGM Hgba1c? HEMOGLOBIN A1C TREND Jan 04 2024m HGB-A1c 7.4 H % 4 - 5.6 09/22/2023 09:59 BLOOD 7.0 H 05/31/2023 12:14 BLOOD 7.0 H 02/23/2023 09:18 BLOOD 6.8 H 08/04/2022 12:45 BLOOD 7.6 H 01/18/2022 12:01 BLOOD 7.6 H Weight trend: 194 lbs BMI 29.62 gained a little Food insecurity no Pattern of eating throughout the day: 1-2 meals, and snacks He does take orange juice. and advised regarding this. Physical activity: heavy yardwork Carbohydrate counting: well informed, inconsistent Episodes of hypoglycemia: as above Hypoglycemia unawareness: no Neuropathy pain: having neuropathy discomfort Last eye evaluation: 09/[address] Last nephropathy screen MCROALBUMIN Sep 22, 2023@09:59 URINE mALB/Cr: 13.4 mg/G 0 - 29.9 FindingsCREATININE-EGFR 09/22/23 09:59 0.92 05/31/23 12:14 0.90 02/23/23 09:18 1.00 CAD: presen yes Jan 04 2024 CHOL 106 mg/dL <7 - 199 TRIG 119 mg/dL 0 - 150 HDL 45 mg/dL 40 - 60 LDL 37 mg/dL 0 - 55 On asa: yes emergency kit/glucose tabs: n/a glucagon Active problems - Computerized Problem List is the source for the followin. 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 Hyperparathyroidism 4. Atrial fibrillation 5. Bladder cancer 6. Food insecurity 7. Chronic pancreatitis 8. Mixed hyperlipidemia 9. Onychomycosis of toenails 10. Tobacco dependence, continuous 11. Hypertension 12. Peripheral vascular disease 13. Coronary artery disease 14. Colonoscopy Screening 15. Meniere's disease 16. Abdominal aortic aneurysm (SNOMED CT [id number]) 17. Localized osteoarthrosis 18. Sciatica 19. Primary Care Physician 20. Cervical radiculopathy 21. Hypothyroidism Active Outpatient Medications (including Supplies): ACCU-CHEK GUIDE (GLUCOSE) TEST STRIP USE 1 STRIP TO TEST ACTIVE BLOOD SUGARS THREE TIMES DAILY NEEDED SENSOR FAILURE DEPEND UNDERWEAR,MAXIMUM,MEN SM/MED USE 1 BRIEF ACTIVE DIRECTED ONCE DAILY NEEDED EMPAGLIFLOZIN 25MG TAB TAKE ONE TABLET BY MOUTH ONCE DAILY ACTIVE FOR DIABETES GLUCOSE SENSOR FREESTYLE REYES 2 USE 1 SENSOR DIRECTED ACTIVE EVERY 14 DAYS INSULIN,ASPART(EQV-NOVLG)100UN /ML FLXPEN INJECT INSULIN ACTIVE SUBCUTANEOUSLY THREE TIMES A DAY FOR DIABETES FOLLOWS: 1 UNIT PER 7 GM OF CARBS AT BREAKFAST, 1 UNIT PER 6 GM OF CARBS AT LUNCH, 1 UNIT PER 8 GM OF CARBS AT DINNER. INSULIN,GLARGINE-YFGN 100UNIT/ML PEN 3ML INJECT 26 UNITS ACTIVE SUBCUTANEOUSLY EVERY MORNING FOR DIABETES LEVOTHYROXINE NA (SYNTHROID) 175MCG TAB TAKE ONE TABLET BY ACTIVE MOUTH EVERY MORNING 30 MINUTES BEFORE BREAKFAST FOR THYROID FOR THYROID - TAKE ON AN EMPTY STOMACH WITH A FULL GLASS OF WATER NEEDLE,PEN 32G,4MM USE 1 NEEDLE SUBCUTANEOUSLY FOUR TIMES ACTIVE A DAY FOR USE WITH PEN DEVICE ONDANSETRON HCL 4MG TAB TAKE ONE TABLET BY MOUTH TWICE ACTIVE DAILY NEEDED FOR NAUSEA AND VOMITING TRANSPARENT DRESSING 2 3/8IN X 2 3/4IN APPLY 1 DRESSING ACTIVE TOPICALLY [id number] Non-VA ASPIRIN 81MG EC TAB 81MG BY MOUTH EVERY DAY ACTIVE Non-VA ATORVASTATIN CALCIUM 80MG TAB 40MG BY MOUTH AT ACTIVE BEDTIME Non-VA CALCIUM 500MG (CA CARB-1.25GM) TAB 1000MG BY MOUTH ACTIVE ONCE DAILY Non-VA CREON 24,000UNIT EC CAP 4 CAPSULES BY MOUTH THREE ACTIVE TIMES A DAY BEFORE MEALS Non-VA DILTIAZEM (EQV-TIAZAC) 360MG 24HR CAP 360MG BY ACTIVE MOUTH ONCE DAILY Non-VA FAMOTIDINE 10MG TAB 10MG BY MOUTH AT BEDTIME ACTIVE Non-VA LINACLOTIDE 72MCG CAP 72MCG BY MOUTH ONCE DAILY ACTIVE Non-VA LISINOPRIL 5MG TAB 5MG BY MOUTH ONCE DAILY ACTIVE Non-VA METOPROLOL TARTRATE 50MG TAB 50MG BY MOUTH TWICE ACTIVE DAILY Non-VA OTHER CAP/TAB BCG VARIABLE ACTIVE Non-VA OTHER CAP/TAB VIOCASE BY MOUTH THREE TIMES A DAY ACTIVE Non-VA WARFARIN (NON-VA) TAB DIRECTED BY MOUTH EVERY ACTIVE DAY SHX: lives alone ROS: No cough or fever PE: affect pleasant appropriate speaking easily in full sentences Feet pulses moderate decrease sensory to monofilament mild decrease LLE, moderate decrease RLE lesions no No tremor Medical Decision Making: Hyperparathyroidism: U/s kidney and bladder IF PTH IS ELEVARTED< PREVIOUSLY NORMSL Increase calcium carbonate to 500 mg BID Hypothyroidism: Continue present levothyroxine dose. 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 He is at risk for falls with gabapentin. Lidocaine ointment ordered Insulin Dose: no change, work on consistent cho, reviewed cho estimation, targets, and rationale for consistent cho to avoid hypoglycemia. Carbohydrate targets 45-60 gm TID Blood sugar targets 80-130 premeal, and 140-180 after Hemoglobin A1c Targets 7 Overweight: Last visit, not expressing much motivation for change. States he would like to lose weight to 180. This feels important because he feels his best, motivation is moderate. He plans to eat out less to lose weight. Hypertension well controlled. Hyperlipidemia well controlled Team follow up lab Calcium, vitamin D now and next visit. Hgba1c BMP Insulin orders updated in cprs F/u three mos FTF Medication Reconciliation: Outpatient: Has the patient been taking medications as documented in the EMLR? No: Discrepencies were identified. See below. Essential Medication List for Review used to complete this medication reconciliation. INCLUDED IN THIS LIST: Alphabetical list of active outpatient prescriptions dispensed from this VA (local) and dispensed from another VA or DoD facility (remote) as well as inpatient orders (local, pending and active), local clinic medications, locally documented non-VA medications, and local prescriptions that have or been discontinued in the past 90 days. - Discrepancies were identified, addressed, and discussed with the patient/caregiver at this encounter. - All changes in medications, including all non-VA/Herbal/OTC medications were entered into CPRS. - If there were any medications the patient should no longer take, they were discontinued. - The patient/caregiver was instructed to update this list, discard old lists, and take this list to the next appointment, whether with a VA or non-VA provider. JLV Link Data on this list may not be complete. Please check JLV. Allergies/ADRs (Tool #5) FACILITY ALLERGY/ADR -------- No Remote Allergy/ADR Data available for this patient [facility] Med Recon NoGlossary (Tool #1) INCLUDED IN THIS LIST: Alphabetical list of active outpatient prescriptions dispensed from this VA (local) and dispensed from another VA or DoD facility (remote) as well as inpatient orders (local pending and active), local clinic medications, locally documented non-VA medications, and local prescriptions that have or been discontinued in the past 90 days. Non-VA Meds Last Documented On: Sep 26, 2023 NOTE The display of VA prescriptions dispensed from another VA or DoD facility (remote) is limited to active outpatient prescription entries matched to National Drug File at the originating site and may not include some items such as investigational drugs, compounds, etc. NOT INCLUDED IN THIS LIST: Medications self-entered by the patient into personal health records (i.e. Tern) are NOT included in this list. Non-VA medications documented outside this VA, remote inpatient orders (regardless of status) and remote clinic medications are NOT included in this list. The patient and provider must always discuss medications the patient is taking, regardless of where the medication was dispensed or obtained. Non-VA ASPIRIN 81MG EC TAB TAKE ONE TABLET BY MOUTH EVERY DAY Medication prescribed by Non-VA provider. Non-VA ATORVASTATIN CALCIUM 80MG TAB TAKE ONE-HALF TABLET BY MOUTH AT BEDTIME Sep 10, 2019 Medication prescribed by Non-VA provider. Non-VA CALCIUM 500MG (CA CARB-1.25GM) TAB TAKE TWO TABLETS BY MOUTH ONCE DAILY Non-VA CREON 24,000UNIT EC CAP TAKE 4 CAPSULES BY MOUTH THREE TIMES A DAY BEFORE MEALS Indication: FOR EXOCRINE PANCREATIC INSUFFICIENCY Non-VA DILTIAZEM (EQV-TIAZAC) 360MG 24HR CAP TAKE 1 CAPSULE BY MOUTH ONCE DAILY Non-VA medication not recommended by VA provider. Medication prescribed by Non-ME provider. OUTPT EMPAGLIFLOZIN 25MG TAB (Status = Active) TAKE ONE TABLET BY MOUTH ONCE DAILY FOR DIABETES Rx# [id number] Last Released: 10/31/23 Qty/ Supply: Rx Expiration Date: 05/12/24 Refills Remainin Non-VA FAMOTIDINE 10MG TAB TAKE ONE TABLET BY MOUTH AT BEDTIME Medication prescribed by Non-ME provider. OUTPT INSULIN,ASPART(EQV-NOVLG)100UN /ML FLXPEN (Status = Active) INJECT INSULIN SUBCUTANEOUSLY THREE TIMES A DAY FOR DIABETES FOLLOWS: 1 UNIT PER 7 GM OF CARBS AT BREAKFAST, 1 UNIT PER 6 GM OF CARBS AT LUNCH, 1 UNIT PER 8 GM OF CARBS AT DINNER. Rx# [id number] Last Released: 12/06/23 Qty/Days Supply: Rx Expiration Date: 06/08/24 Refills Remainin Indication: FOR DIABETES OUTPT INSULIN,GLARGINE-YFGN 100UNIT/ML PEN 3ML (Status = Active) INJECT 26 UNITS SUBCUTANEOUSLY EVERY MORNING FOR DIABETES Rx# [id number] Last Released: 12/07/23 Qty/Days Supply: Rx Expiration Date: 06/08/24 Refills Remainin Indication: FOR DIABETES OUTPT LEVOTHYROXINE NA (SYNTHROID) 175MCG TAB (Status = Active) TAKE ONE TABLET BY MOUTH EVERY MORNING 30 MINUTES BEFORE BREAKFAST FOR THYROID FOR THYROID - TAKE ON AN EMPTY STOMACH WITH A FULL GLASS OF WATER Rx# [id number] Last Released: 11/30/23 Qty/Days Supply: Rx Expiration Date: 07/26/24 Refills Remainin Indication: FOR THYROID OUTPT LIDOCAINE 5% OINT (Status = Pending) APPLY LIBERAL AMOUNT TOPICALLY TWICE DAILY Login Date: 01/05/24 Qty/Days Supply: Refills Ordered: 1 Non-VA LINACLOTIDE 72MCG CAP TAKE 1 CAPSULE BY MOUTH ONCE DAILY Non-VA LISINOPRIL 5MG TAB TAKE ONE TABLET BY MOUTH ONCE DAILY Non-VA METOPROLOL TARTRATE 50MG TAB TAKE ONE TABLET BY MOUTH TWICE DAILY Medication prescribed by Non-VA provider. OUTPT NUTR SUPL GLUCERNA THER NUTR SHAKE VAN (Status = ) DRINK 1 CAN BY MOUTH TWICE DAILY FOR NUTRITIONAL SUPPLEMENTATION Rx# [id number] Last Released: 04/15/23 Qty/Days Supply: 72 Rx Expiration Date: 11/13/23 Refills Remainin Indication: FOR NUTRITIONAL SUPPLEMENTATION OUTPT ONDANSETRON HCL 4MG TAB (Status = Active) TAKE ONE TABLET BY MOUTH TWICE DAILY NEEDED FOR NAUSEA AND VOMITING Rx# [id number] Last Released: 10/10/23 Qty/Days Supply: 60 Rx Expiration Date: 04/13/24 Refills Remainin Indication: FOR NAUSEA AND VOMITING Non-VA OTHER CAP/TAB TAKE BCG intravaesical VARIABLE Non-VA OTHER CAP/TAB TAKE VIOCASE BY MOUTH THREE TIMES A DAY four for meals and two for snacks Indication: pancreatitis Non-VA WARFARIN (NON-VA) TAB TAKE DIRECTED BY MOUTH EVERY DAY Medication prescribed by Non-VA provider. SUPPLIES OUTPT ACCU-CHEK GUIDE (GLUCOSE) TEST STRIP (Status = Active) USE 1 STRIP TO TEST BLOOD SUGARS THREE TIMES DAILY NEEDED SENSOR FAILURE Rx# [id number] Last Released: 11/03/23 Qty/Days Supply: 100/30 Rx Expiration Date: 10/21/24 Refills Remainin Indication: SENSOR FAILURE OUTPT DEPEND UNDERWEAR,MAXIMUM,MEN SM/MED (Status = Active) USE 1 BRIEF DIRECTED ONCE DAILY NEEDED Rx# [id number] Last Released: 12/05/23 Qty/Days Supply: 76 Rx Expiration Date: 08/01/24 Refills Remainin Indication: INCONTINENCE OUTPT GLUCOSE SENSOR FREESTYLE REYES 2 (Status = Discontinued) USE 1 SENSOR DIRECTED EVERY 14 DAYS Rx# [id number] Last Released: 12/02/23 Qty/Days Supply: 10/26 Rx Expiration Date: 07/07/24 Refills Remainin OUTPT GLUCOSE SENSOR FREESTYLE REYES 2 (Status = Active) USE 1 SENSOR DIRECTED EVERY 14 DAYS Rx# [id number] Last Released: 12/13/23 Qty/Days Supply: 10/26 Rx Expiration Date: 12/08/24 Refills Remainin OUTPT NEEDLE,PEN 32G,4MM (Status = Active) USE 1 NEEDLE SUBCUTANEOUSLY FOUR TIMES A DAY FOR USE WITH PEN DEVICE Rx# [id number] Last Released: 07/28/23 Qty/Days Supply: 400/90 Rx Expiration Date: 07/26/24 Refills Remainin OUTPT TRANSPARENT DRESSING 2 3/8IN X 2 3/4IN (Status = Active) APPLY 1 DRESSING TOPICALLY [id number] Rx# [id number] Last Released: 12/13/23 Qty/Days Supply: Rx Expiration Date: 12/13/24 Refills RemaininMauro ELLIS MD STAFF PHYSICIAN Signed: 01/05/2024 12:36 01/05/2024 ADDENDUM STATUS: COMPLETED WHOLE HEALTH COACHING SKILLS Coaching or Motivational Interviewing skills used. 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 Has had falls. No fractures. Taking dairy rarely. Takes calcium carbonate 500 mg daily. Saw vascular service for LLE recently. EMG is planned. No temp intolerance, Chronic constipation, atrial fibrillation, no tremor. Taking levothyroxine 175 mcg daily Takes thyroid on an empty stomach, not with calcium. All endocrine labs were reviewed with the patient. Jan 04 2024 TSH 2.11 uIU/mL .35 - 5 Free T4 1.25 Jan 04 2024 GLUCOSE 197 H mg/dL 65 - 100 BUN 18 mg/dL 7 - 25 CREATININE 0.98 mg/dL .5 - 1.4 eGFR(IDMS) Ref: >=60 CREAT mg/dL .5 - 1.5 eGFR See Eval Ref: See Eval Sodium 137 mmol/L 135 - 145 K+/Pot 4.4 mmol/L 3.5 - 5 CL 107 mmol/L 100 - 110 CO2 23 mEq/L 20 - 30 CA 8.5 mg/dL 8.5 - 10.2 UricAci mg/dL 3.5 - 7.2 May 31, 2023@12:14 PTH INTACT: 69.7 H pg/mL - not recent January 04, 2024@13:53 PTH INTACT: 72.1 H pg/mL JANUARY 18, 2022 EXAM: Bone Mineral Density (BMD) HISTORY: Screening for osteoporosis PRIOR: None HIP: BMD of 0.83, T score -0.7 L-SPINE: BMD of 1.2, T score 1.0 Barriers/s supports for care: Lives alone. Meals are variable, due to variable ability to eat. Medications for diabetes: empagliflozin INSULIN,ASPART(EQV-NOVLG)100UN /ML FLXPEN INJECT INSULIN ACTIVE SUBCUTANEOUSLY THREE TIMES A DAY FOR DIABETES FOLLOWS: 1 UNIT PER 7 GM OF CARBS AT BREAKFAST, 1 UNIT PER 6 GM OF CARBS AT LUNCH, 1 UNIT PER 8 GM OF CARBS AT DINNER. glargine 21 units daily BG readings: CGM Hgba1c? HEMOGLOBIN A1C TREND Jan 04 2024m HGB-A1c 7.4 H % 4 - 5.6 09/22/2023 09:59 BLOOD 7.0 H 05/31/2023 12:14 BLOOD 7.0 H 02/23/2023 09:18 BLOOD 6.8 H 08/04/2022 12:45 BLOOD 7.6 H 01/18/2022 12:01 BLOOD 7.6 H Weight trend: 194 lbs BMI 29.62 gained a little Food insecurity no Pattern of eating throughout the day: 1-2 meals, and snacks He does take orange juice. and advised regarding this. Physical activity: heavy yardwork Carbohydrate counting: well informed, inconsistent Episodes of hypoglycemia: as above Hypoglycemia unawareness: no Neuropathy pain: having neuropathy discomfort Last eye evaluation: 09/2023 no Last nephropathy screen MCROALBUMIN Sep 22, 2023@09:59 URINE mALB/Cr: 13.4 mg/G 0 - 29.9 FindingsCREATININE-EGFR 09/22/23 09:59 0.92 05/31/23 12:14 0.90 02/23/23 09:18 1.00 CAD: presen yes Jan 04 2024 CHOL 106 mg/dL <7 - 199 TRIG 119 mg/dL 0 - 150 HDL 45 mg/dL 40 - 60 LDL 37 mg/dL 0 - 55 On asa: yes emergency kit/glucose tabs: n/a glucagon Active problems - Computerized Problem List is the source for the followin. 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 Hyperparathyroidism 4. Atrial fibrillation 5. Bladder cancer 6. Food insecurity 7. Chronic pancreatitis 8. Mixed hyperlipidemia 9. Onychomycosis of toenails 10. Tobacco dependence, continuous 11. Hypertension 12. Peripheral vascular disease 13. Coronary artery disease 14. Colonoscopy Screening 15. Meniere's disease 16. Abdominal aortic aneurysm (SNOMED CT [id number]) 17. Localized osteoarthrosis 18. Sciatica 19. Primary Care Physician 20. Cervical radiculopathy 21. Hypothyroidism Active Outpatient Medications (including Supplies): ACCU-CHEK GUIDE (GLUCOSE) TEST STRIP USE 1 STRIP TO TEST ACTIVE BLOOD SUGARS THREE TIMES DAILY NEEDED SENSOR FAILURE DEPEND UNDERWEAR,MAXIMUM,MEN SM/MED USE 1 BRIEF ACTIVE DIRECTED ONCE DAILY NEEDED EMPAGLIFLOZIN 25MG TAB TAKE ONE TABLET BY MOUTH ONCE DAILY ACTIVE FOR DIABETES GLUCOSE SENSOR FREESTYLE REYES 2 USE 1 SENSOR DIRECTED ACTIVE EVERY 14 DAYS INSULIN,ASPART(EQV-NOVLG)100UN /ML FLXPEN INJECT INSULIN ACTIVE SUBCUTANEOUSLY THREE TIMES A DAY FOR DIABETES FOLLOWS: 1 UNIT PER 7 GM OF CARBS AT BREAKFAST, 1 UNIT PER 6 GM OF CARBS AT LUNCH, 1 UNIT PER 8 GM OF CARBS AT DINNER. INSULIN,GLARGINE-YFGN 100UNIT/ML PEN 3ML INJECT 26 UNITS ACTIVE SUBCUTANEOUSLY EVERY MORNING FOR DIABETES LEVOTHYROXINE NA (SYNTHROID) 175MCG TAB TAKE ONE TABLET BY ACTIVE MOUTH EVERY MORNING 30 MINUTES BEFORE BREAKFAST FOR THYROID FOR THYROID - TAKE ON AN EMPTY STOMACH WITH A FULL GLASS OF WATER NEEDLE,PEN 32G,4MM USE 1 NEEDLE SUBCUTANEOUSLY FOUR TIMES ACTIVE A DAY FOR USE WITH PEN DEVICE ONDANSETRON HCL 4MG TAB TAKE ONE TABLET BY MOUTH TWICE ACTIVE DAILY NEEDED FOR NAUSEA AND VOMITING TRANSPARENT DRESSING 2 3/8IN X 2 3/4IN APPLY 1 DRESSING ACTIVE TOPICALLY [id number] Non-VA ASPIRIN 81MG EC TAB 81MG BY MOUTH EVERY DAY ACTIVE Non-VA ATORVASTATIN CALCIUM 80MG TAB 40MG BY MOUTH AT ACTIVE BEDTIME Non-VA CALCIUM 500MG (CA CARB-1.25GM) TAB 1000MG BY MOUTH ACTIVE ONCE DAILY Non-VA CREON 24,000UNIT EC CAP 4 CAPSULES BY MOUTH THREE ACTIVE TIMES A DAY BEFORE MEALS Non-VA DILTIAZEM (EQV-TIAZAC) 360MG 24HR CAP 360MG BY ACTIVE MOUTH ONCE DAILY Non-VA FAMOTIDINE 10MG TAB 10MG BY MOUTH AT BEDTIME ACTIVE Non-VA LINACLOTIDE 72MCG CAP 72MCG BY MOUTH ONCE DAILY ACTIVE Non-VA LISINOPRIL 5MG TAB 5MG BY MOUTH ONCE DAILY ACTIVE Non-VA METOPROLOL TARTRATE 50MG TAB 50MG BY MOUTH TWICE ACTIVE DAILY Non-VA OTHER CAP/TAB BCG VARIABLE ACTIVE Non-VA OTHER CAP/TAB VIOCASE BY MOUTH THREE TIMES A DAY ACTIVE Non-VA WARFARIN (NON-VA) TAB DIRECTED BY MOUTH EVERY ACTIVE DAY SHX: lives alone ROS: No cough or fever PE: affect pleasant appropriate speaking easily in full sentences Feet pulses moderate decrease sensory to monofilament mild decrease LLE, moderate decrease RLE lesions no No tremor Medical Decision Making: Hyperparathyroidism: U/s kidney and bladder IF PTH IS ELEVARTED< PREVIOUSLY NORMSL Increase calcium carbonate to 500 mg BID Hypothyroidism: Continue present levothyroxine dose. 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 He is at risk for falls with gabapentin. Lidocaine ointment ordered Insulin Dose: no change, work on consistent cho, reviewed cho estimation, targets, and rationale for consistent cho to avoid hypoglycemia. Carbohydrate targets 45-60 gm TID Blood sugar targets 80-130 premeal, and 140-180 after Hemoglobin A1c Targets 7 Overweight: Last visit, not expressing much motivation for change. States he would like to lose weight to 180. This feels important because he feels his best, motivation is moderate. He plans to eat out less to lose weight. Hypertension well controlled. Hyperlipidemia well controlled Team follow up lab Calcium, vitamin D now and next visit. Hgba1c BMP Insulin orders updated in cprs F/u three mos FTF Medication Reconciliation: Outpatient: Has the patient been taking medications as documented in the EMLR? No: Discrepencies were identified. See below. Essential Medication List for Review used to complete this medication reconciliation. INCLUDED IN THIS LIST: Alphabetical list of active outpatient prescriptions dispensed from this ME (local) and dispensed from another ME or DoD facility (remote) as well as inpatient orders (local, pending and active), local clinic medications, locally documented non-VA medications, and local prescriptions that have or been discontinued in the past 90 days. - Discrepancies were identified, addressed, and discussed with the patient/caregiver at this encounter. - All changes in medications, including all non-VA/Herbal/OTC medications were entered into CPRS. - If there were any medications the patient should no longer take, they were discontinued. - The patient/caregiver was instructed to update this list, discard old lists, and take this list to the next appointment, whether with a VA or non-VA provider. JLV Link Data on this list may not be complete. Please check JLV. Allergies/ADRs (Tool #5) FACILITY ALLERGY/ADR -------- No Remote Allergy/ADR Data available for this patient [facility] Med Recon NoGlossary (Tool #1) INCLUDED IN THIS LIST: Alphabetical list of active outpatient prescriptions dispensed from this ME (local) and dispensed from another VA or DoD facility (remote) as well as inpatient orders (local pending and active), local clinic medications, locally documented non-VA medications, and local prescriptions that have or been discontinued in the past 90 days. Non-VA Meds Last Documented On: Sep 26, 2023 NOTE The display of VA prescriptions dispensed from another VA or DoD facility (remote) is limited to active outpatient prescription entries matched to National Drug File at the originating site and may not include some items such as investigational drugs, compounds, etc. NOT INCLUDED IN THIS LIST: Medications self-entered by the patient into personal health records (i.e. Tern) are NOT included in this list. Non-VA medications documented outside this ME, remote inpatient orders (regardless of status) and remote clinic medications are NOT included in this list. The patient and provider must always discuss medications the patient is taking, regardless of where the medication was dispensed or obtained. Non-VA ASPIRIN 81MG EC TAB TAKE ONE TABLET BY MOUTH EVERY DAY Medication prescribed by Non-VA provider. Non-VA ATORVASTATIN CALCIUM 80MG TAB TAKE ONE-HALF TABLET BY MOUTH AT BEDTIME Sep 10, 2019 Medication prescribed by Non-VA provider. Non-VA CALCIUM 500MG (CA CARB-1.25GM) TAB TAKE TWO TABLETS BY MOUTH ONCE DAILY Non-VA CREON 24,000UNIT EC CAP TAKE 4 CAPSULES BY MOUTH THREE TIMES A DAY BEFORE MEALS Indication: FOR EXOCRINE PANCREATIC INSUFFICIENCY Non-VA DILTIAZEM (EQV-TIAZAC) 360MG 24HR CAP TAKE 1 CAPSULE BY MOUTH ONCE DAILY Non-VA medication not recommended by VA provider. Medication prescribed by Non-VA provider. OUTPT EMPAGLIFLOZIN 25MG TAB (Status = Active) TAKE ONE TABLET BY MOUTH ONCE DAILY FOR DIABETES Rx# [id number] Last Released: 10/31/23 Qty/Days Supply: Rx Expiration Date: 05/12/24 Refills Remainin Non-VA FAMOTIDINE 10MG TAB TAKE ONE TABLET BY MOUTH AT BEDTIME Medication prescribed by Non-VA provider. OUTPT INSULIN,ASPART(EQV-NOVLG)100UN /ML FLXPEN (Status = Active) INJECT INSULIN SUBCUTANEOUSLY THREE TIMES A DAY FOR DIABETES FOLLOWS: 1 UNIT PER 7 GM OF CARBS AT BREAKFAST, 1 UNIT PER 6 GM OF CARBS AT LUNCH, 1 UNIT PER 8 GM OF CARBS AT DINNER. Rx# [id number] Last Released: 12/06/23 Qty/Days Supply: Rx Expiration Date: 06/08/24 Refills Remainin Indication: FOR DIABETES OUTPT INSULIN,GLARGINE-YFGN 100UNIT/ML PEN 3ML (Status = Active) INJECT 26 UNITS SUBCUTANEOUSLY EVERY MORNING FOR DIABETES Rx# [id number] Last Released: 12/07/23 Qty/Days Supply: Rx Expiration Date: 06/08/24 Refills Remainin Indication: FOR DIABETES OUTPT LEVOTHYROXINE NA (SYNTHROID) 175MCG TAB (Status = Active) TAKE ONE TABLET BY MOUTH EVERY MORNING 30 MINUTES BEFORE BREAKFAST FOR THYROID FOR THYROID - TAKE ON AN EMPTY STOMACH WITH A FULL GLASS OF WATER Rx# [id number] Last Released: 11/30/23 Qty/Days Supply: Rx Expiration Date: 07/26/24 Refills Remainin Indication: FOR THYROID OUTPT LIDOCAINE 5% OINT (Status = Pending) APPLY LIBERAL AMOUNT TOPICALLY TWICE DAILY Login Date: 01/05/24 Qty/Days Supply: 70 Refills Ordered: 1 Non-VA LINACLOTIDE 72MCG CAP TAKE 1 CAPSULE BY MOUTH ONCE DAILY Non-VA LISINOPRIL 5MG TAB TAKE ONE TABLET BY MOUTH ONCE DAILY Non-VA METOPROLOL TARTRATE 50MG TAB TAKE ONE TABLET BY MOUTH TWICE DAILY Medication prescribed by Non-VA provider. OUTPT NUTR SUPL GLUCERNA THER NUTR SHAKE VAN (Status = ) DRINK 1 CAN BY MOUTH TWICE DAILY FOR NUTRITIONAL SUPPLEMENTATION Rx# [id number] Last Released: 04/15/23 Qty/Days Supply: 72 Rx Expiration Date: 11/13/23 Refills Remainin Indication: FOR NUTRITIONAL SUPPLEMENTATION OUTPT ONDANSETRON HCL 4MG TAB (Status = Active) TAKE ONE TABLET BY MOUTH TWICE DAILY NEEDED FOR NAUSEA AND VOMITING Rx# [id number] Last Released: 10/10/23 Qty/Days Supply: 6030 Rx Expiration Date: 04/13/24 Refills Remainin Indication: FOR NAUSEA AND VOMITING Non-VA OTHER CAP/TAB TAKE BCG intravaesical VARIABLE Non-VA OTHER CAP/TAB TAKE VIOCASE BY MOUTH THREE TIMES A DAY four for meals and two for snacks Indication: pancreatitis Non-VA WARFARIN (NON-VA) TAB TAKE DIRECTED BY MOUTH EVERY DAY Medication prescribed by Non-VA provider. SUPPLIES OUTPT ACCU-CHEK GUIDE (GLUCOSE) TEST STRIP (Status = Active) USE 1 STRIP TO TEST BLOOD SUGARS THREE TIMES DAILY NEEDED SENSOR FAILURE Rx# [id number] Last Released: 11/03/23 Qty/Days Supply: 100/30 Rx Expiration Date: 10/21/24 Refills Remainin Indication: SENSOR FAILURE OUTPT DEPEND UNDERWEAR,MAXIMUM,MEN SM/MED (Status = Active) USE 1 BRIEF DIRECTED ONCE DAILY NEEDED Rx# [id number] Last Released: 12/05/23 Qty/Days Supply: 76 Rx Expiration Date: 08/01/24 Refills Remainin Indication: INCONTINENCE OUTPT GLUCOSE SENSOR FREESTYLE REYES 2 (Status = Discontinued) USE 1 SENSOR DIRECTED EVERY 14 DAYS Rx# [id number] Last Released: 12/02/23 Qty/Days Supply: 10/26 Rx Expiration Date: 07/07/24 Refills Remainin OUTPT GLUCOSE SENSOR FREESTYLE REYES 2 (Status = Active) USE 1 SENSOR DIRECTED EVERY 14 DAYS Rx# [id number] Last Released: 12/13/23 Qty/Days Supply: 10/26 Rx Expiration Date: 12/08/24 Refills Remainin OUTPT NEEDLE,PEN 32G,4MM (Status = Active) USE 1 NEEDLE SUBCUTANEOUSLY FOUR TIMES A DAY FOR USE WITH PEN DEVICE Rx# [id number] Last Released: 07/28/23 Qty/Days Supply: 400/90 Rx Expiration Date: 07/26/24 Refills Remainin OUTPT TRANSPARENT DRESSING 2 3/8IN X 2 3/4IN (Status = Active) APPLY 1 DRESSING TOPICALLY [id number] Rx# [id number] Last Released: 12/13/23 Qty/Days Supply: Rx Expiration Date: 12/13/24 Refills Remainin bill/ COMPA ELLIS MD STAFF PHYSICIAN Signed: 01/05/2024 12:36 01/05/2024 ADDENDUM STATUS: COMPLETED WHOLE HEALTH COACHING SKILLS Coaching or Motivational Interviewing skills used. 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 Thank you. /odell ELLIS MD STAFF PHYSICIAN Signed: 01/06/2024 15:06 Receipt Acknowledged By: * AWAITING SIGNATURE * MIRNA GUERRA [facility]
--- OUTSIDE RECORDS SUMMARY | 2024-10-31 08:08 | XMS_ITS | Encounter Summary ---
Author Name [facility] [place] Organization [facility] [place] Address [address] [place] [id number] Care Team Providers Care Fruit Distributor Name Role Phone MARICEL ELIAS Primary Care [...] SUPPLEMEN YAMILKA MEDEX 2 Apr 29, 2020 [id number] [phone] ALICE RUSSO PATIENT [place] SUPPLEMEN YAMILKA MEDEX 2 Apr 29, 2020 [id number] [phone] ALICE RUSSO PATIENT BCBS [facility] CE [facility]GAN[facility] SHARE ACTIV E Feb 27, 2012 [id number] [phone] ALICE RUSSO PATIENT [employer] ([id number]) PRESCRIPT ION L4TA* Feb 27, 2012 [id number] [id number] ALICE RUSSO PATIENT [employer] ([id number]) PRESCRIPT ION Feb 27, 2012 L4TA [id number] ALICE RUSSO PATIENT MEDICARE (WNR) MEDICARE (M) PART A Apr 29, 2020 PART A [id number] ALICE RUSSO PATIENT MEDICARE (WNR) MEDICARE (M) PART B Apr 29, 2020 PART B [id number] ALICE RUSSO PATIENT MEDICARE (WNR) MEDICARE (M) PART A Apr 29, 2020 PART A [id number] [phone] ALICE RUSSO PATIENT MEDICARE (WNR) MEDICARE (M) PART B Apr 29, 2020 PART B [id number] ALICE RUSSO PATIENT Selected Encounter This section includes the information on record at [place] for the Encounter. Date/Time Encounter Type Encounter Description Reason Pro vider Source Mar 16, 2024 01:36 PM Outpatient Encounter ADMIN PAT ACTIVTIES (MASNONCT) IHE Encounter Template Text not used by [place] Plan of Treatment: Future Appointments (+ 6 months) and Future Tests (+/- 45 days) The Plan of Treatment section includes future care activities for the patient from all [place] treatmentfacilities. This section includes future appointments and future orders which are active, pending or scheduled. Future Appointments This section includes appointments that were scheduled to occur 6 months from the date of the Encounter, up to a maximum of 20 appointments. The data comes from all [place] treatment facilities. Appointment Date/Time Appointment Type Appointme nt Facility Name Apr 02, 2024 09:00 AM AMBULATORY - MEDICINE [facility] [place] [facility] May 03, 2024 08:30 AM [facility] May 03, 2024 03:00 PM [facility] - [facility]IC[place] [place] Jun 27, 2024 11:00 AM AMBULATORY - MEDICINE [facility] [place] [facility] Jul 02, 2024 10:30 AM AMBULATORY - MEDICINE [facility] [place] [place] [facility] Jul 04, 2024 09:00 AM AMBULATORY - MEDICINE [facility] [place] [facility] Sep 06, 2024 03:00 PM [facility] Lab Results: +/- 30 days of the encounter This section includes the Chemistry and Hematology Lab Results on record with [place] for the patient. Radiology Reports and Pathology Reports are provided separately, in subsequent sections. Lab Results This section contains the Chemistry/Hematology Results that were resulted 30 days before or 30 daysafter the date of the Encounter. Date/Time Source Result Type Result - Unit Interpretation Reference Range Comment Mar 28, 2024 10:32 AM [facility] HEMOGLOBIN A1C PANEL Specimen Type: BLOOD Comment: Values obtained from A1C measurements can vary. For atypical A1C assays, a reported value of 7.0 could actually be between 6.72 and 7.28 if measured by a reference method. A reported value of 9.0 could actually be between 8.73 and 9.27. Ref: http://www.ngs p.org/CAPdata. asp Ordering Provider: COMPA ELLIS Report Released Date/Time: January 05, 2024 12:35 PM Reporting Lab: [address] [address] Performing Lab: [address] [address] HEMOGLOBIN A1C 7.3 H 4.0-5.6 Mar 28, 2024 10:32 AM [facility] CALCIUM Specimen Type: SERUM No comment entered. Ordering Provider: COMPA ELLIS Report Released Date/Time: January 05, 2024 12:35 PM Reporting Lab: [facility] [address] [facility] [address] Performing Lab: [address] [address] CALCIUM 8.9 mg/dL 8.5-10.2 Mar 28, 2024 10:32 AM [facility] VITAMIN D (25-OH) Specimen Type: SERUM No comment entered. Ordering Provider: COMPA ELLIS Report Released Date/Time: January 05, 2024 12:35 PM Reporting Lab: [address] [address] Performing Lab: [address] [address] VITAMIN D (25-OH) 40 ng/mL 20-50 Mar 28, 2024 10:32 AM [facility] BASIC METABOLIC PANEL (non-fasting) Specimen Type: SERUM No comment entered. Ordering Provider: COMPA ELLIS Report Released Date/Time: January 05, 2024 12:35 PM Reporting Lab: [facility] [address] [facility] [address] Performing Lab: [facility] [address] [facility] [address] UREA NITROGEN 12 mg/dL 7-25 GLUCOSE 107 mg/dL H 65-100 SODIUM 139 mmol/L 135-145 POTASSIUM 3.9 mmol/L 3.5-5.0 CHLORIDE 107 mmol/L 100-110 CO2 24 meq/L 20-30 CREATININE, Serum 0.94 mg/dL 0.50-1.40 eGFR(CKD-EPI 2020) 88 mL/min >60 Social History: Smoking Status (Most current) and Tobacco Use (All prior to encounter date) This section includes the most current, and the historical, smoking and tobacco- related health factors from the [place] facility where the Encounter took place. Current Smoking Status This section includes the most current smoking, or tobacco-related health factor, from the [place] facility where the Encounter took place. Date/Time Current Smoking Status Comment Guerrero parr Sep 09, 2020 08:36 AM VA-TOBACCO USER EVERY DAY [facility] Tobacco Use History This section includes a history of the smoking, or tobacco-related health factors, that were collected on or before the date of the Encounter. The data comes from the [place] facility where the Encounter took place. Date/Time Smoking Status/Tobacco Use Comment F acility Sep 09, 2020 08:36 AM VA-TOBACCO USE 30 YEARS OR MORE [place] [facility] Sep 09, 2020 08:36 AM [facility]AC[facility] USE ADVICE [facility] Sep 09, 2020 08:36 AM VA-TOBACCO USE TIRE MOLDER NO [place] [facility] [facility] Sep 09, 2020 08:36 AM VA-[facility]BACCO USE MED [facility] Sep 09, 2020 08:36 AM VA-TOBACCO USER EVERY DAY [facility] Encounter Notes: All associated encounter notes This section contains the clinical notes associated to the Encounter. Date/Time Encounter Note(s) Provider Source Mar 16, 2024 01:36 PM PHARMACY NOTE: LOCAL TITLE: PHARMACY CUSTOMER CARE MEDICATION RENEWAL STANDARD TITLE: PHARMACY NOTE DATE OF NOTE: MAR 16, 2024@13:36 ENTRY DATE: MAR 16, 2024@13:36:44 AUTHOR: LACHO FLORES V EXP COSIGNER: URGENCY: STATUS: COMPLETED Date: Feb Division: Spray Pt referred by Pharmacy Call Center for medication renewal: Non-controlled/maintenanc e medication Medications requested: [id number]$ LEVOTHYROXINE NA (SYNTHROID) 175MCG TAB Defer to specialty clinic To be mailed . Please review and renew if appropriate. *This note was generated by [facility] Pharmacy Customer Care. If you have any questions or need assistance, do not contact this author. Please refer all questions to your local, on-site pharmacy departments. /samara/ LACHO FLORES CPhT Corporate Communications Specialist, [place]/Pharmacy Customer Care Signed: 03/16/2024 13:37 Receipt Acknowledged By: 03/16/2024 13:41 /samara/ COMPA ELLIS MD STAFF PHYSICIAN LACHO FLORES V [place] [facility]
--- OUTSIDE RECORDS SUMMARY | 2024-10-31 08:08 | XMS_ITS | Encounter Summary ---
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 Role Phone MARICEL ELIAS Primary Care [...] SUPPLEMEN YAMILKA MEDEX 2 Apr 29, 2020 [id number] [phone] ALICE RUSSO PATIENT [place]BS [place] MED[place] SUPPLEMEN YAMILKA MEDEX 2 Apr 29, 2020 [id number] ALICE RUSSO PATIENT BCBS [facility] CE ORGANIZ [facility] SHARE ACTIV E Feb 27, 2012 [id number] ALICE RUSSO PATIENT [employer] ([id number]) PRESCRIPT ION L4TA* Feb 27, 2012 L4TA [id number] ALICE RUSSO PATIENT [employer] ([id number]) PRESCRIPT ION Feb 27, 2012 L4TA [id number] [phone] ALICE RUSSO PATIENT MEDICARE (WNR) MEDICARE (M) PART B Apr 29, 2020 PART B [id number] ALICE RUSSO PATIENT MEDICARE (WNR) MEDICARE (M) PART A Apr 29, 2020 PART A [id number] ALICE RUSSO PATIENT MEDICARE (WNR) MEDICARE (M) PART A Apr 29, 2020 PART A [id number] [phone] ALICE RUSSO PATIENT MEDICARE (WNR) MEDICARE (M) PART B Apr 29, 2020 PART B [id number] ALICE RUSSO PATIENT Selected Encounter This section includes the information on record at [place] for the Encounter. Date/Time Encounter Type Encounter Description Reason Pro vider Source Dec 13, 2023 11:51 AM Outpatient Encounter ADMIN PAT ACTIVTIES (MASNONCT) IHE Encounter Template Text not used by CO Plan of Treatment: Future Appointments (+ 6 months) and Future Tests (+/- 45 days) The Plan of Treatment section includes future care activities for the patient from all [place] treatmentfacilities. This section includes future appointments and future orders which are active, pending or scheduled. Future Appointments This section includes appointments that were scheduled to occur 6 months from the date of the Encounter, up to a maximum of 20 appointments. The data comes from all [place] treatment facilities. Appointment Date/Time Appointment Type Appointme nt Facility Name January 05, 2024 10:30 AM AMBULATORY - MEDICINE [place] [facility] [place] [facility] January 25, 2024 11:00 AM AMBULATORY - MEDICINE [place] [facility] [place] [facility] Feb 02, 2024 12:30 PM AMBULATORY - NONE [facility] [place] [facility] Apr 02, 2024 09:00 AM AMBULATORY - MEDICINE [place] [facility] [place] [facility] May 03, 2024 08:30 AM AM[facility]UL[facility]ORY - MEDICINE [place] [place] May 03, 2024 03:00 PM AMBULATORY - MEDICINE [facility] Lab Results: +/- 30 days of the encounter This section includes the Chemistry and Hematology Lab Results on record with [place] for the patient. Radiology Reports and Pathology Reports are provided separately, in subsequent sections. Lab Results This section contains the Chemistry/Hematology Results that were resulted 30 days before or 30 daysafter the date of the Encounter. Date/Time Source Result Type Result - Unit Interpretation Reference Range Comment January 04, 2024 01:[address] [facility] THYROID T4 FREE(FT4) (WROX) Specimen Type: SERUM No comment entered. Ordering Provider: COMPA ELLIS Report Released Date/Time: January 03, 2024 08:02 AM Reporting Lab[facility] [place] [facility] [address] [facility] [address] Performing Lab: [facility] [address] [facility] [address] THYROID T4 FREE(FT4) (WROX) 1.25 ng/dL 0.6-1.6 January 04, 2024 01:53 PM [facility] HEMOGLOBIN A1C PANEL Specimen Type: BLOOD [...] January 03, 2024 08:02 AM Reporting Lab: [facility] [address] [facility] [address] Performing Lab: [facility] [address] [facility] [address] HEMOGLOBIN A1C 7.4 H 4.0-5.6 January 04, 2024 01:53 PM [facility] MICROALBUMIN CREATININE RATIO PANEL Specimen Type: URINE No comment entered. Ordering Provider: COMPA ELLIS Report Released Date/Time: January 03, 2024 08:02 AM Reporting Lab: [facility] [address] [facility] [address] Performing Lab: [facility] [address] [facility] [address] MICROALBUMIN/C REATININE RATIO 15.4 mg/g 0-29.9 MICROALBUMIN,Q UANTITATIVE 0.8 mg/dL RR UNAVAIL CREATININE URINE 51.94 mg/dL January 04, 2024 01:[address] [address] [facility] CALCIUM Specimen Type: SERUM No comment entered. Ordering Provider: COMPA ELLIS Report Released Date/Time: January 03, 2024 08:02 AM Reporting Lab: [facility] [place] [facility] [address] [facility] [address] Performing Lab: [facility] [place] [facility] [address] [facility] [address] CALCIUM 8.5 mg/dL 8.5-10.2 January 04, 2024 01:[address] [facility] PTH INTACT Specimen Type: SERUM No comment entered. Ordering Provider: COMPA ELLIS Report Released Date/Time: January 03, 2024 08:02 AM Reporting Lab: [facility] [address] [address] Performing Lab: [facility] [address] [facility] [address] PTH INTACT 72.1 pg/mL H 10-65 January 04, 2024 01:[address] VITAMIN D (25-OH) Specimen Type: SERUM No comment entered. Ordering Provider: COMPA ELLIS Report Released Date/Time: January 03, 2024 08:02 AM Reporting Lab: [facility] [address] [facility] [address] Performing Lab: [facility] [address] [facility] [address] VITAMIN D (25-OH) 44 ng/mL 20-50 January 04, 2024 01:[address] LIPID PANEL FASTING Specimen Type: SERUM No comment entered. Ordering Provider: COMPA ELLIS Report Released Date/Time: January 03, 2024 08:02 AM Reporting Lab: [facility] [address] [facility] [address] Performing Lab: [facility] [address] [address] CHOLESTEROL 106 mg/dL TRIGLYCERIDE 119 mg/dL 0-150 LDL calculated 37 mg/dL 0-129 CHOL/HDL 2.4 HDL CHOLESTEROL 45 mg/dL 40-60 January 04, 2024 01:53 PM [facility] BASIC METABOLIC PANEL (fasting) Specimen Type: SERUM No comment entered. Ordering Provider: COMPA ELLIS Report Released Date/Time: January 03, 2024 08:02 AM Reporting Lab: [address] [address] Performing Lab: [address] [address] UREA NITROGEN 18 mg/dL 7-25 GLUCOSE 197 mg/dL H 65-100 SODIUM 137 mmol/L 135-145 POTASSIUM 4.4 mmol/L 3.5-5.0 CHLORIDE 107 mmol/L 100-110 CO2 23 meq/L 20-30 CREATININE, Serum 0.98 mg/dL 0.50-1.40 eGFR(CKD-EPI 2020) 83 mL/min >60 January 04, 2024 01:53 PM [facility] TSH Specimen Type: SERUM No comment entered. Ordering Provider: COMPA ELLIS Report Released Date/Time: January 03, 2024 08:02 AM Reporting Lab: [address] [address] Performing Lab: [address] [address] TSH 2.11 u[IU]/mL 0.35-5.00 Social History: Smoking Status (Most current) and Tobacco Use (All prior to encounter date) This section includes the most current, and the historical, smoking and tobacco- related health factors from the [place] facility where the Encounter took place. Current Smoking Status This section includes the most current smoking, or tobacco-related health factor, from the [place] facility where the Encounter took place. Date/Time Current Smoking Status Comment Facil ity Sep 09, 2020 08:36 AM VA-TOBACCO USER EVERY DAY [facility] Tobacco Use History This section includes a history of the smoking, or tobacco-related health factors, that were collected on or before the date of the Encounter. The data comes from the [place] facility where the Encounter took place. 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 Please renew if appropriate.Thank you for your time. DRESSING,TRANSPARENT (TEGADERM) DRESSING (2) CMOP Drug: TRANSPARENT DRESSING [facility] 4 3[facility] [address]-89 Verb: APPLY (3) *Dosage: 1 DRESSING *Route: TOPICALLY *Schedule: Q14D (4)Pat Instructions: Indications: SIG: APPLY 1 DRESSING TOPICALLY EVERY 14 DAYS /odell CRONIN Signed: 12/13/2023 11:52 Receipt Acknowledged By: 12/16/2023 12:26 /samara/ COMPA ELLIS MD STAFF PHYSICIAN 12/13/2023 13:09 /odell FOX RN 12/13/2023 ADDENDUM STATUS: COMPLETED ordered 2 3/8 x 2 3/8 Tegaderm patches. /odell FOX RN Signed: 12/13/2023 13:10 VOLODYMYR CRONIN [facility]
--- OUTSIDE RECORDS SUMMARY | 2024-10-31 08:08 | XMS_ITS | Encounter Summary ---
Author Name [facility] [facility] [place] [facility] [place] Address [address] [place] [id number] Care Team Providers Care Director Of Environmental Services Name Role Phone MARICEL ELIAS Primary Care [...] SUPPLEMEN YAMILKA MEDEX 2 Apr 29, 2020 [id number] [phone] ALICE RUSSO PATIENT BCBS IN MEDICARE SUPPLEMEN YAMILKA MEDEX 2 Apr 29, 2020 [id number] ALICE RUSSO PATIENT BCBS FORMERLY [facility] CE [facility]GANIZ [facility] SHARE ACTIV E Feb 27, 2012 [id number] [phone] ALICE RUSSO PATIENT [employer] ([id number]) PRESCRIPT ION L4TA* Feb 27, 2012 [id number] ALICE RUSSO PATIENT [employer] ([id number]) PRESCRIPT ION Feb 27, 2012 [id number] ALICE RUSSO PATIENT MEDICARE (WNR) MEDICARE (M) PART A Apr 29, 2020 PART A [id number] ALICE RUSSO PATIENT MEDICARE (WNR) MEDICARE (M) PART B Apr 29, 2020 PART B [id number] [phone] ALICE RUSSO PATIENT MEDICARE (WNR) MEDICARE (M) PART A Apr 29, 2020 PART A [id number] ALICE RUSSO PATIENT MEDICARE (WNR) MEDICARE (M) PART B Apr 29, 2020 PART B [id number] ALICE RUSSO PATIENT Selected Encounter This section includes the information on record at [place] for the Encounter. Date/Time Encounter Type Encounter Description Reason Provider Source Oct 10, 2024 08:30 AM OFFICE O/P EST MOD 30 MIN ENDOCRINOLOGY ICD-10-CM E08.9 Diabetes due to underlying condition w/o complications COMPA ELLIS Mainor Encounter Template Text not used by [place] Assessments - Encounter Diagnoses This section includes the primary and secondary diagnoses documented for the Encounter. 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 [facility] [place] [facility] Oct 24, 2024 08:22 AM SECONDARY Disorder of bone density and structure, unspecified [facility] [place] [facility] Oct 24, 2024 08:22 AM SECONDARY Essential (primary) hypertension [facility] [place] [facility] Oct 24, 2024 08:22 AM SECONDARY Hyperlipidemia, unspecified [facility] [place] [facility] Oct 24, 2024 08:22 AM SECONDARY Hypothyroidism, unspecified [facility] [place] [facility] Oct 24, 2024 08:22 AM SECONDARY Nontoxic single thyroid nodule [facility] [place] [facility] Plan of Treatment: Future Appointments (+ 6 months) and Future Tests (+/- 45 days) The Plan of Treatment section includes future care activities for the patient from all VA treatmentfacilities. This section includes future appointments and future orders which are active, pending or scheduled. Future Appointments This section includes appointments that were scheduled to occur 6 months from the date of the Encounter, up to a maximum of 20 appointments. The data comes from all [facility]. Appointment Date/Time Appointment Type Appointme nt Facility Name Oct 23, 2024 03:00 PM AM[facility] NONE [place] [facility] Oct 23, 2024 03:15 PM AMBULATORY - MEDICINE [place] [facility] [facility] Oct 23, 2024 03:30 PM AMBULATORY - [place]ICINE [place] [facility] [facility] Nov 30, 2024 09:30 AM AMBULATORY - NONE [place] [facility] [place] [facility] Dec 24, 2024 08:00 AM AMBULATORY - [place]ICINE [place] [facility] [facility] Dec 24, 2024 09:30 AM AMBULATORY - [place]ICINE [place] [facility] [facility] January 07, 2025 09:00 AM AMBULATORY [place]ICINE [place] [facility] [facility] January 24, 2025 08:30 AM [facility] Active, Pending, and Scheduled Orders This section includes a listing of several types of active, pending, and scheduled orders, including clinic medications orders, diagnostic test orders, procedure orders and consult orders; where the start date of the order is 45 days before the date of the Encounter or 45 days after the date of theEncounter. The data comes from all [facility]. Test Date/Time Test Type Test Details Facility Name Oct 27, 2024 12:00 AM Laboratory - Chemi stry Order PT & INR (PROTIME) [facility] Oct 27, 2024 12:00 AM Laboratory - Chemi stry Order PTT BLOOD (BLUE-PLASMA) [facility] Oct 27, 2024 12:00 AM Laboratory - Chemi stry Order CBC AND DIFF (AUTO) BLOOD (LAV-BLOOD) [facility] Oct 27, 2024 09:25 AM Consult Order COMMUNITY CARE-INTERVENTIONAL RADIOLOGY Cons Sheltered Workshop Executive Director's Choice [facility] Lab Results: +/- 30 days of the encounter This section includes the Chemistry and Hematology Lab Results on record with [place] for the patient. Radiology Reports and Pathology Reports are provided separately, in subsequent sections. Lab Results This section contains the Chemistry/Hematology Results that were resulted 30 days before or 30 daysafter the date of the Encounter. Date/Time Source Result Type Result - Unit Interpretation Reference Range Comment Sep 20, 2024 08:58 AM [facility] HEMOGLOBIN A1C PANEL Specimen Type: BLOOD Comment: Values obtained from A1C measurements can vary. For atypical A1C assays, a reported value of 7.0 could actually be between 6.72 and 7.28 if measured by a reference method. A reported value of 9.0 could actually be between 8.73 and 9.27. Ref: http://www.ngs p.org/CAPdata. asp Ordering Provider: COMPA ELLIS Report Released Date/Time: Jul 02, 2024 11:06 AM Reporting Lab: [address] [address] Performing Lab: [address] [address] HEMOGLOBIN A1C 6.5 H 4.0-5.6 Sep 20, 2024 08:58 AM [facility] CALCIUM Specimen Type: SERUM No comment entered. Ordering Provider: COMPA ELLIS Report Released Date/Time: Jul 02, 2024 11:06 AM Reporting Lab: [address] [address] Performing Lab: [address] [address] CALCIUM 9.0 mg/dL 8.5-10.2 Sep 20, 2024 08:58 AM [facility] VITAMIN D (25-OH) Specimen Type: SERUM No comment entered. Ordering Provider: COMPA ELLIS Report Released Date/Time: Jul 02, 2024 11:06 AM Reporting Lab: [address] [address] Performing Lab: [address] [address] VITAMIN D (25-OH) 30 ng/mL 20-50 Sep 20, 2024 08:58 AM [facility] BASIC METABOLIC PANEL (non-fasting) Specimen Type: SERUM No comment entered. Ordering Provider: COMPA ELLIS Report Released Date/Time: Jul 02, 2024 11:06 AM Reporting Lab: [facility] [address] [address] Performing Lab: [facility] [address] [address] UREA NITROGEN 9 mg/dL 7-25 GLUCOSE 170 mg/dL H 65-100 SODIUM 138 mmol/L 135-145 POTASSIUM 3.9 mmol/L 3.5-5.0 CHLORIDE 104 mmol/L 100-110 CO2 24 meq/L 20-30 CREATININE, Serum 0.85 mg/dL 0.50-1.40 eGFR(CKD-EPI 2020) >90 mL/min >60 Vital Signs: All taken on the encounter date This section contains inpatient and outpatient Vital Signs collected on the date of the Encounter. Date/Time Temperature Pulse Blood Pressure Respiratory Rate SP02 Pain Height Weight Body Mass Index Source Oct 10, 2024 08:30 AM 98.2 57 135/87 18 99 5 182.8 28 [facility] Social History: Smoking Status (Most current) and Tobacco Use (All prior to encounter date) This section includes the most current, and the historical, smoking and tobacco- related health factors from the [place] facility where the Encounter took place. Current Smoking Status This section includes the most current smoking, or tobacco-related health factor, from the [place] facility where the Encounter took place. Date/Time Current Smoking Status Comment Facil ity Jun 27, 2024 11:00 AM [place]-TOBACCO USE MICHELLE RY DAY CIGARETTES [facility] Tobacco Use History This section includes a history of the smoking, or tobacco-related health factors, that were collected on or before the date of the Encounter. The data comes from the [place] facility where the Encounter took place. Date/Time Smoking Status/Tobacco Use Comment F acility Jun 27, 2024 11:00 AM [place]-TOBACCO SCREEN FOLLOW-UP [facility] Jun 27, 2024 11:00 AM [facility]-TOBACCO USE ADVICE [facility] [place] [facility] Jun 27, 2024 11:00 AM VA-TOBACCO USE ACROBATIC DANCER NO [facility] [place] [facility] Jun 27, 2024 11:00 AM VA-TOBACCO USE MICHELLE RY DAY CIGARETTES [facility] [place] [facility] Jun 27, 2024 11:00 AM VA-TOBACCO USE MED NO [facility] [place] [facility] Sep 09, 2020 08:36 AM VA-TOBACCO DOESNT USE WI 30 MIN WAKEUP [facility] [place] [facility] Sep 09, 2020 08:36 AM VA-TOBACCO USE 30 YEARS OR MORE [facility] [place] [facility] Sep 09, 2020 08:36 AM VA-TOBACCO USE ADVICE [facility] [place] [facility] Sep 09, 2020 08:36 AM VA-TOBACCO USE ACROBATIC DANCER NO [facility] [place] [facility] Sep 09, 2020 08:36 AM VA-TOBACCO USE MED NO [facility] [place] [facility] Sep 09, 2020 08:36 AM VA-TOBACCO USER EVERY DAY [facility] [place] [facility] Radiology Reports: +/- 30 days of [...] the Encounter. The data comes from all [place] treatment facilities. Date/Time Radiology Report Provider Source Oct 23, 2024 02:43 PM ULTRASOUND NECK (THYROID,HEAD,SOFT TISSUE): ALICE RUSSO [id number] -[id number] M Ex Date: OCT 23, 2024@14:43 Req Phys: COMPA ELLIS Loc: [facility] ENDOCRINE 1 (Req'g Loc) Img Loc: ULTRASOUND Service: Unknown [place] [facility] [place] [facility] [place] [address] (Case [id number] COMPLETE) ULTRASOUND NECK (THYROID,HEAD,SOF(US Detailed) CPT:01329 Reason for Study: multinodular goiter Clinical History: Report Status: Verified Date Reported: OCT 24, 2024 Date Verified: OCT 24, 2024 Tile Installer E-Sig: Report: ULTRASOUND NECK (THYROID,HEAD,SOFT TISSUE) HISTORY: multinodular goiter COMPARISON: CT neck 10/25/2022 TECHNIQUE: Sonographic imaging of the thyroid gland was performed at the local [place] facility. 22 images were received by the [place] National Teleradiology Program (NTP) for interpretation. FINDINGS: [...] is recommended. READING PHYSICIAN: Christiano Camacho M.D. -[phone] 10/24/2024 12:43 [facility] National Teleradiology Program [phone] (For Medical Practitioner Use Only) Attention Patients / Veterans: If you have questions or concerns about these test results, please contact your ordering provider or primary care team. Primary Diagnostic Code: NO ALERT REQUIRED Primary Interpreting Staff: RADIOLOGY,OUTSIDE SERVICE, Staff Physician / RADIOLOGY,OUTSIDE SERVICE [place] [facility] Encounter Notes: All associated encounter notes This section contains the clinical notes associated to the Encounter. 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 He had nerve damage, with residual difficulty walking. Has follow up today with vascular. No changes in the grayson of the thyroid. No dysphagia, a little hoarseness. Ongoing care for bladder CA. From last visit He has us carotid at [facility], and states thyroid Nodule seen. 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 Otherwise no radiation exposure, and he was not particularly close to missiles. No family hx thyroid CA. He has not noted mass in thyroid, no hoarseness or dysphagia. Endorses often taking lunch insulin after meal, not consistently keeping it on him. Endorses overtreating low bg All endocrine labs were reviewed with the patient. Sep 20 2024 GLUCOSE 170 H mg/dL 65 - 100 BUN 9 mg/dL 7 - 25 CREATININE 0.85 mg/dL .5 - 1.4 Sodium 138 mmol/L 135 - 145 K+/Pot 3.9 mmol/L 3.5 - 5 CL 104 mmol/L 100 - 110 CO2 24 mEq/L 20 - 30 CA 9.0 mg/dL 8.5 - 10.2 Sep 20, 2024@08:58 VITAMIN D (25-OH): 30 ng/mL 20 - 50 Jun 27 Jun 25 Reference 2023 2023 TSH 3.53 uIU/mL .35 - 5 FT4 1.55 ng/dL .6 - 1.6 Barriers/s supports for care: Lives alone. is supportive and lives in a different house. Medications for diabetes: empagliflozin INSULIN,ASPART(EQV-NOVLG)100UN /ML FLXPEN INJECT ACTIVE DIRECTED SUBCUTANEOUSLY THREE TIMES A DAY 3 UNITS AT BREAKFAST, 1 UNIT PER 8 GM CARB LUNCH, AND 1 UNIT PER 7 GM CARB DINNER PLEASE HOLD UNTIL REQUESTED Indication: FOR DIABETES INSULIN,GLARGINE- 17 units daily Indication: FOR DIABETES BG readings:CGM Hgba1c? HEMOGLOBIN A1C TREND 09/20/2024 08:58 BLOOD 6.5 H 06/25/2024 10:14 BLOOD 6.3 H 03/28/2024 10:32 BLOOD 7.3 H 01/04/2024 13:53 BLOOD 7.4 H 09/22/2023 09:59 BLOOD 7.0 H Weight trend:180 lbs stable Food insecurity no Pattern of eating throughout the day:Usually two meals, eating lunch and dinner. Physical activity: limited Carbohydrate counting: well informed Episodes of hypoglycemia: Hypoglycemia unawareness: Neuropathy pain: Last eye evaluation: glaucoma check, no dilated exam has appt this month Last nephropathy screen MICROALBUMIN Jun 25, 2024@10:14 URINE mALB/Cr: 18.0 mg/G 0 - 29. FindingsCREATININE-EGFR 09/20/24 08:58 0.85 06/25/24 10:14 1.00 03/28/24 10:32 0.94 Statin therapy: Jun 25 2024 CHOL 95 mg/dL <7 - 199 TRIG 91 mg/dL 0 - 150 HDL 47 mg/dL 40 - 60 LDL 30 mg/dL 0 - 55 CAD: present On asa: yes emergency kit/glucose tabs: glucagon n/a Active problems - Computerized Problem List is the source for the followin. Bone density below reference range 2. 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 Hyperparathyroidism 5. Atrial fibrillation 6. Bladder cancer 7. Food insecurity 8. Chronic pancreatitis 9. Mixed hyperlipidemia 10. Onychomycosis of toenails 11. Tobacco dependence, continuous 12. Hypertension 13. Peripheral vascular disease 14. Coronary artery disease 15. Colonoscopy Screening 16. Meniere's disease 17. Abdominal aortic aneurysm (SNOMED CT [id number]) 18. Localized osteoarthrosis 19. Sciatica 20. Primary Care Physician 21. Cervical radiculopathy 22. Hypothyroidism Active Outpatient Medications (including Supplies): ACCU-CHEK GUIDE (GLUCOSE) TEST STRIP USE 1 STRIP TO TEST ACTIVE BLOOD SUGARS THREE TIMES DAILY NEEDED Indication: SENSOR FAILURE EMPAGLIFLOZIN 25MG TAB TAKE ONE TABLET BY MOUTH ONCE DAILY ACTIVE Indication: FOR TYPE 2 DIABETES MELLITUS GLUCOSE SENSOR FREESTYLE REYES 3 USE 1 SENSOR DIRECTED ACTIVE EVERY 14 DAYS INSULIN,ASPART(EQV-NOVLG)100UN /ML FLXPEN INJECT ACTIVE DIRECTED SUBCUTANEOUSLY THREE TIMES A DAY 3 UNITS AT BREAKFAST, 1 UNIT PER 8 GM CARB LUNCH, AND 1 UNIT PER 7 GM CARB DINNER PLEASE HOLD UNTIL REQUESTED Indication: FOR DIABETES INSULIN,GLARGINE-YFGN 100UNIT/ML PEN 3ML INJECT 20 UNITS ACTIVE SUBCUTANEOUSLY EVERY MORNING Indication: FOR DIABETES LEVOTHYROXINE NA 175MCG TAB TAKE ONE TABLET BY MOUTH EVERY ACTIVE MORNING 30 MINUTES BEFORE BREAKFAST - TAKE ON AN EMPTY STOMACH WITH A FULL GLASS OF WATER Indication: FOR THYROID LIDOCAINE 5% PATCH APPLY 1 PATCH TOPICALLY ONCE DAILY ACTIVE (LEAVE PATCH ON FOR 12 HOURS, THEN REMOVE PATCH) Indication: FOR NERVE PAIN TRANSPARENT DRESSING 2 3/8IN X 2 3/4IN APPLY 1 DRESSING ACTIVE TOPICALLY EVERY 14 DAYS Non-VA ASPIRIN 81MG EC TAB 81MG BY MOUTH EVERY DAY ACTIVE Non-VA ATORVASTATIN CALCIUM 80MG TAB 40MG BY MOUTH AT ACTIVE BEDTIME Non-VA CALCIUM 500MG (CA CARB-1.25GM) TAB 1000MG BY MOUTH ACTIVE ONCE DAILY Non-VA CREON 6,000UNIT EC CAP 4 CAPSULES BY MOUTH THREE ACTIVE TIMES DAILY NEEDED Indication: meal Non-VA DILTIAZEM (EQV-TIAZAC) 180MG 24HR CAP 180MG BY ACTIVE MOUTH ONCE DAILY Non-VA FAMOTIDINE 10MG TAB 10MG BY MOUTH AT BEDTIME ACTIVE Non-VA LINACLOTIDE 72MCG CAP 72MCG BY MOUTH ONCE DAILY ACTIVE Non-VA LISINOPRIL 5MG TAB 5MG BY MOUTH ONCE DAILY ACTIVE Non-VA METOPROLOL TARTRATE 25MG TAB 25MG BY MOUTH TWICE ACTIVE DAILY Non-VA OTHER CAP/TAB BCG VARIABLE ACTIVE Non-VA OTHER CAP/TAB VIOCASE BY MOUTH THREE TIMES A DAY ACTIVE Indication: pancreatitis Non-VA WARFARIN (NON-VA) TAB DIRECTED BY MOUTH EVERY ACTIVE DAY SHX:as above ROS: no cough or fever PE: affect pleasant appropriate Mild hoarseness speaking easily in full sentences Feet pulses mild decrease sensory to monofilament pretty normal lesions no Phonates eee well thyroid irregular mobile no LN Medical Decision Making: Thyroid nodule: Thyroid u/s Hypothyroidism TFTs 04/2025 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 YES: The patient has been taking medications as documented in the EMLR. Essential Medication List for Review used to [...] discontinued in the past 90 days. - All changes in medications, including all [...] Remote Allergy/ADR Data available for this patient [place] [facility] [place] [facility] METFORMIN Med Recon NoGlossary (Tool #1) [...] 90 days. Non-VA Meds Last Documented On: Jul 02, 2024 NOTE The display of VA prescriptions dispensed from another VA or DoD facility (remote) is limited to active outpatient prescription entries matched to National Drug File at the originating site and may not include some items such as investigational drugs, compounds, etc. NOT INCLUDED IN THIS LIST: Medications self-entered by the patient into personal health records (i.e. [employer]) are NOT included in this list. Non-VA medications documented outside this [place], remote inpatient orders (regardless of status) and [...] TABLETS BY MOUTH ONCE DAILY Non-VA CREON 6,000UNIT EC CAP TAKE 4 CAPSULES BY MOUTH THREE TIMES A DAY NEEDED Indication: meal Non-VA DILTIAZEM (EQV-TIAZAC) 180MG 24HR CAP TAKE 1 CAPSULE BY MOUTH ONCE DAILY Non-VA medication not recommended by VA provider. Medication prescribed by Non-VA provider. OUTPT EMPAGLIFLOZIN 25MG TAB (Status = Active) TAKE ONE TABLET BY MOUTH ONCE DAILY FOR TYPE 2 DIABETES MELLITUS Rx# [id number] Last Released: 07/04/24 Qty/Days Supply: Rx Expiration Date: 07/03/25 Refills Remainin Indication: FOR TYPE 2 DIABETES MELLITUS Non-VA FAMOTIDINE 10MG TAB TAKE ONE TABLET BY MOUTH AT BEDTIME Medication prescribed by Non-VA provider. OUTPT INSULIN,ASPART(EQV-NOVLG)100UN /ML FLXPEN (Status = Active) INJECT DIRECTED SUBCUTANEOUSLY THREE TIMES A DAY 3 UNITS AT BREAKFAST, 1 UNIT PER 8 GM CARB LUNCH, AND 1 UNIT PER 7 GM CARB DINNER PLEASE HOLD UNTIL REQUESTED Rx# [id number] Last Released: 08/02/24 Qty/Days Supply: Rx Expiration Date: 05/04/25 Refills Remainin Indication: FOR DIABETES OUTPT INSULIN,GLARGINE-YFGN 100UNIT/ML PEN 3ML (Status = Active) INJECT 20 UNITS SUBCUTANEOUSLY EVERY MORNING Rx# [id number] Last Released: 08/06/24 Qty/Days Supply: Rx Expiration Date: 05/04/25 Refills Remainin Indication: FOR DIABETES OUTPT LEVOTHYROXINE NA 175MCG TAB (Status = Active) TAKE ONE TABLET BY MOUTH EVERY MORNING 30 MINUTES BEFORE BREAKFAST FOR THYROID - TAKE ON AN EMPTY STOMACH WITH A FULL GLASS OF WATER Rx# [id number] Last Released: 09/01/24 Qty/Days Supply: Rx Expiration Date: 07/03/25 Refills Remainin Indication: FOR THYROID OUTPT LIDOCAINE 5% PATCH (Status = Active) APPLY 1 PATCH TOPICALLY ONCE DAILY FOR NERVE PAIN (LEAVE PATCH ON FOR 12 HOURS, THEN REMOVE PATCH) Rx# [id number] Last Released: 06/29/24 Qty/Days Supply: Rx Expiration Date: 06/28/25 Refills Remainin Indication: FOR NERVE PAIN Non-VA LINACLOTIDE 72MCG CAP TAKE 1 CAPSULE BY MOUTH ONCE DAILY Non-VA LISINOPRIL 5MG TAB TAKE ONE TABLET BY MOUTH ONCE DAILY Non-VA METOPROLOL TARTRATE 25MG TAB TAKE ONE TABLET BY MOUTH TWICE DAILY Medication prescribed by Non-VA provider. Non-VA OTHER CAP/TAB TAKE BCG intravaesical VARIABLE [...] THREE TIMES DAILY NEEDED SENSOR FAILURE Rx# [id number] Last Released: 05/10/24 Qty/Days Supply: Rx Expiration Date: 05/04/25 Refills Remainin Indication: SENSOR FAILURE OUTPT DEPEND UNDERWEAR,MAXIMUM,MEN SM/MED (Status = ) USE 1 BRIEF DIRECTED ONCE DAILY NEEDED Rx# [id number] Last Released: 04/10/24 Qty/Days Supply: Rx Expiration Date: 08/01/24 Refills Remainin Indication: INCONTINENCE OUTPT GLUCOSE SENSOR FREESTYLE REYES 3 (Status = Active) USE 1 SENSOR DIRECTED EVERY 14 DAYS Rx# [id number] Last Released: 10/02/24 Qty/Days Supply: 10/26 Rx Expiration Date: 07/03/25 Refills Remainin OUTPT NEEDLE,PEN 32G,4MM (Status = ) USE 1 NEEDLE SUBCUTANEOUSLY FOUR TIMES A DAY FOR USE WITH PEN DEVICE Rx# [id number] Last Released: 05/03/24 Qty/Days Supply: Rx Expiration Date: 07/26/24 Refills Remainin OUTPT TRANSPARENT DRESSING 2 3/8IN X 2 3/4IN (Status = Active) APPLY 1 DRESSING TOPICALLY EVERY 14 DAYS Rx# [id number] Last Released: 07/05/24 Qty/Days Supply: Rx Expiration Date: 07/04/25 Refills Remainin /samara/ COMPA ELLIS MD STAFF PHYSICIAN Signed: 10/10/2024 12:28 COMPA ELLIS [facility]
--- OUTSIDE RECORDS SUMMARY | 2024-10-31 08:08 | XMS_ITS | Clinical Summary ---
Author Organization [facility] Address [address] [place] [address] Care Team Providers Care Cupola Liner Helper Name Role Phone Deyvi Brantley MD Primary Care Provider [phone] Allergies Active Allergy Reactions Criticality Noted Date Comments Amoxicillin-Pot Clavulanate 01/23/20 21 Escitalopram Oxalate Other 03/19/2021 Medications metoprolol tartrate (LOPRESSOR) 50 mg tablet TAKE 1 TABLET BY MOUTH TWICE DAILY 180 tablet 3 08/06/2024 Active atorvastatin (LIPITOR) 40 mg tablet TAKE 1 TABLET BY MOUTH DAILY 90 tablet 08/06/2024 Active lisinopriL (PRINIVIL,ZESTR IL) 5 mg tablet TAKE 1 TABLET BY MOUTH DAILY 90 tablet 1 09/27/2024 Active aspirin 81 mg EC tablet Take 81 mg by mouth daily. Active cholecalciferol (VITAMIN D-3) 25 mcg (1,000 unit) capsule Take 1 Capsule by mouth daily. Active dilTIAZem CD (CARDIZEM CD) 180 mg 24 hr capsule take 1 capsule by mouth daily 09/01/2024 Active docusate sodium (COLACE) 100 mg capsule Take 1 Capsule by mouth 2 times daily. Active empagliflozin (Jardiance) 25 mg tablet Take 1 Tablet by mouth daily. Active famotidine (PEPCID) 40 mg tablet Take 1 Tab by mouth daily. Active hydrALAZINE (APRESOLINE) 10 mg tablet Take 1 Tablet by mouth 2 times daily. Active insulin aspart (NovoLOG Flexpen U-100 Insulin) 100 unit/mL (3 mL) injection pen 06/08/2023 Activ e levothyroxine (SYNTHROID, LEVOTHROID) 175 mcg tablet Take 1 Tablet by mouth daily. Active LORazepam (ATIVAN) 0.5 mg tablet Take 1 Tab by mouth as needed. Active nitroglycerin (NITROSTAT) 0.[address] 1 Tablet under the tongue as needed (as needed for chest pain). 06/04/2024 Active ondansetron (ZOFRAN) 8 mg tablet Take 8 mg by mouth every 8 hours as needed. Active tamsulosin (FLOMAX) 0.4 mg 24 hr capsule Take 1 Capsule by mouth daily. Take 30 mins after same meal every day. Active lipase/protease /amylase (VIOKASE 8 ORAL) Take by mouth. - Oral Active ascorbic acid (VITAMIN C) 500 mg/5 mL syrup Take by mouth daily. - Oral Active calcium carbonate 250 mg/mL (100 mg/mL elemental calcium) suspension Take 2 Tablets by mouth 2 times daily. - Oral Active warfarin sodium (COUMADIN ORAL) Take 1 Tablet by mouth as needed. As directed by PCP - Oral Active insulin glargine (LANTUS) 100 unit/mL injection Inject under the skin. Active Active Problems Problem Noted Date Diagnosed Date PVD (peripheral vascular disease) 10/23/2024 DM2 (diabetes mellitus, type 2) 10/23/2024 Typical atrial flutter 10/23/2024 Ischemic colitis 10/23/2024 Chronic pancreatitis 01/24/2024 Overview (10/23/2024): Mar 15, 2019 Entered By: ERIC MCINTOSH Comment: Dxangelina 08/2018 - Dr Wrad 2018 Entered By: ERIC MCINTOSH Comment: Scheduled to see Chronic Pancreatitis specialistend of 02/2019 at [facility] Persistent atrial fibrillation 07/31/2021 Anterior wall myocardial infarction 06/13/2021 Paroxysmal atrial fibrillation 03/19/2021 Dyslipidemia 03/19/2021 Coronary artery disease invo lving seminole coronary artery of seminole heart without angina pectoris 11/20/2020 Overview (10/23/2024): Apr 03, 2018 Entered By: ERIC MCINTOSH Comment: AMI 2003; had Angioplasty; no CABG or StentJun 2017 Entered By: ERIC MCINTOSH Comment: Dr Strong/Cardiology Resolved Problems Problem Noted Date Diagnosed Date Resolved Date Abdominal aortic aneurysm (AAA) 01/24/2024 10/23/2024 Overview (10/23/2024): Apr 04, 2017 Entered By: ERIC MCINTOSH Comment: Dx'd 2016: is < 3.0 CM as of AUG 13; follows w/ [facility] 2017 Entered By: ERIC MCINTOSH Comment: 03/31/18: Abd CT - 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 Cervical radiculopathy 01/24/202410/23 Overview (10/23/2024): Aug 13, 2016 Entered By: JUAN MARISCAL Comment: Surg Fusion C3 - - C5; Class 1 obesity 01/24/2024 10/23/2024 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, bilateral 01/24/2024 10/23/2024 Diabetes mellitus associated with pancreatic disease 01/24/2024 10/23/2024 Diabetes mellitus due to und erlying condition without complications 01/24/2024 10/23/2024 Essential (primary) hypertension 01/24/2024 10/23/2024 Food insecurity 01/24/2024 10/23/2024 Chronic atrial fibrillation 01/22/2021 10/23/2024 Encounters Date Type Department Care Team Description 08/06/2024 Telephone [facility] [address] [place] [address] Juan Strong MD [facility] CALL from Last 3 Months Surgical History Surgery Date Site/Laterality Comments OTHER SURGICAL HISTORY PROCEDURE: HISTORY OTHER; COMMENT: Bladder tumor resection Medical History Medical History Date Comments Acute pancreatitis DX:Acute panc reatitis Atherosclerotic heart disease DX :Atherosclerotic heart disease Meniere's disease DX:Meniere's d isease Dyslipidemia DX:Dyslipidemia SVT (supraventricular tachyc ardia) (CMS/HCC) DX:SVT (supraventricular tac hycardia) (HCC) Hypothyroidism DX:Hypothyroidis m Chronic back pain DX:Chronic tim k pain Cervical disc disease DX:Cervica l disc disease Gouty arthritis of great toe DX: Gouty arthritis of great toe Bladder cancer (CMS/HCC) DX:Blad vern cancer (HCC) Claudication (CMS/HCC) DX:Claudi cation (HCC) Social History Tobacco Use Types Packs/Day Years Used Date Smoking Tobacco: Some Days Smokeless Tobacco: Never Alcohol Use Standard Drinks/Week Comments No 0 (1 standard drink = 0.6 oz pur e alcohol) Sex and Gender Information Value Date Recorded Sex Assigned at Not on file Legal Sex Male 6:20 PM EST Gender Identity Not on file Sexual Orientation Not on file Obstetrics History Last Filed Vital Signs Vital Sign Reading Time Taken Comments Blood Pressure 120/76 06/04/2024 9:30 AM EDT Sitting R Arm Pulse 44 06/04/2024 9:30 AM EDT Temperature - - Respiratory Rate - - Oxygen Saturation - - Inhaled Oxygen Concentration - - Weight 83.7 kg (184 lb 9.6 oz) 06/04/2024 9:30 AM EDT Height 172.7 cm (5' 8 ) 06/04/2024 9:30 AM EDT Body Mass Index 28.07 06/04/2024 9:30 AM EDT Plan of Treatment Upcoming Encounters Date Type Department Care Team (Late st Contact Info) Description 02/08/2025 9:10 AM EDT Office Visit [facility] [address] [place] [address] [address] [place] [address] Rashawn Francis NP [address] [place] [address] [address] [place] [address] Health Maintenance Due Date Last Done Comments Diabetes: Annual GFR (Glomerular Filtration Rate) 1955 Diabetes: Annual Foot Exam 1965 Diabetes: Annual Retina Eye Exam 1965 Hepatitis A Vaccines (1 of 2 - Risk 2-dose series) 1974 RSV Immunization Patients 60 + Years Old (1 - Risk 60-74 years 1-dose series) 2015 Zoster Vaccines (2 of 2) 08/04/2018 06/09/2018 Pneumococcal Vaccine: 50+ Years (2 of 2 - PPSV23) 07/09/2020 05/14/2020 Abdominal Aortic Aneurysm (AAA) Screen 08/07/2022 Cholesterol Screening (Lipid Panel) 08/07/2022 Colorectal Cancer Screening: Colonoscopy 08/07/2022 Depression Screening 08/07/2022 Falls Risk Assessment 08/07/2022 Hepatitis C Screening 08/07/2022 Medicare Annual Wellness Visit 08/07/2022 Social Influencers of Health Screening 08/07/2022 Hypertension/CHF/CAD Annual BMP Blood Test 08/08/2022 Diabetes: Annual Urine Albumin-Creatinine Ratio (uACR) 08/11/2022 Diabetes: Blood Sugar Contro l Test (HGBA1C) 08/11/2022 COVID-19 Vaccine (4 - 2023-2 5 season) 2024 04/16/2021, 11/20/2020, 10/21/2020 Influenza Vaccine (#1) 2024 , 05/14/2020, 07/17/2018 DTaP,Tdap,and Td Vaccines (2 - Td or Tdap) 04/04/2027 04/04/2017 HIB Vaccines Aged Out No longer eligi [...] on patient's age to complete this topic MMR Vaccines Aged Out No longer eligi ble based on patient's age to complete this topic Meningococcal ACWY Vaccine Aged Out N o longer eligible based on patient's age to complete this topic Meningococcal B Vacine Aged Out No lo nger eligible based on patient's age to complete this topic RSV Immunization Patients Under 20 months Aged Out No longer eligible b ased on patient's age to complete this topic Varicella Vaccines Aged Out No longer eligible based on patient's age to complete this topic Insurance MEDICARE Member Subscriber Plan / Payer (Ef fective 2020-Present) Name:Bruce Earl Member ID:[id number] Relation to Subscriber:Self Name:Bruce Earl Subscriber ID:[id number] Payer ID:Not on file Group ID:Not on file Type:Medicare Address: [place] [phone] Care Teams Cupola Liner Helper Relationship Specialty Start Date End Date Deyvi Bratnley MD [address] PCP - General 07/18/13
--- OUTSIDE RECORDS SUMMARY | 2024-10-31 08:08 | XMS_ITS | Encounter Summary ---
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 Name Role Phone MARICEL ELIAS Primary Care [...] SUPPLEMEN YAMILKA MEDEX 2 Apr 29, 2020 [id number] [phone] ALICE RUSSO PATIENT [place] SUPPLEMEN YAMILKA MEDEX 2 Apr 29, 2020 [id number] ALICE RUSSO PATIENT BCBS [facility]GAN[facility] SHARE ACTIV E Feb 27, 2012 [id number] ALICE RUSSO PATIENT [employer] ([id number]) PRESCRIPT ION L4TA* Feb 27, 2012 [id number] ALICE RUSSO PATIENT [employer] ([id number]) PRESCRIPT ION Feb 27, 2012 [id number] [phone] ALICE RUSSO PATIENT MEDICARE (WNR) MEDICARE (M) PART B Apr 29, 2020 PART B [id number] ALICE RUSSO PATIENT MEDICARE (WNR) MEDICARE (M) PART A Apr 29, 2020 PART A [id number] ALICE RUSSO PATIENT MEDICARE (WNR) MEDICARE (M) PART A Apr 29, 2020 PART A [id number] [phone] ALICE RUSSO PATIENT MEDICARE (WNR) MEDICARE (M) PART B Apr 29, 2020 PART B [id number] ALICE RUSSO PATIENT Selected Encounter This section includes the information on record at [place] for the Encounter. Date/Time Encounter Type Encounter Description Reason Provider Source Oct 23, 2024 03:30 PM OFFICE O/P EST MOD 30 MIN OPTOMETRY ICD-10-CM E11.9 Type 2 diabetes mellitus without complications BOB TIM Mainor Encounter Template Text not used by [place] Assessments - Encounter Diagnoses This section includes the primary and secondary diagnoses documented for the Encounter. Date/Time Primary/Secondary Diagnosis Diagnosis Name Provider Source Oct 24, 2024 05:32 PM PRIMARY Type 2 diabetes mellitus without complications BOB TIM [facility] [place] [facility] Oct 24, 2024 05:32 PM SECONDARY Combined forms of age-related cataract, bilateral BOB TIM [facility] [place] [facility] Oct 24, 2024 05:32 PM SECONDARY Meibomian gland dysfnct left eye, upper and lower eyelids BOB TIM [facility] [place] [facility] Oct 24, 2024 05:32 PM SECONDARY Meibomian gland dysfnct right eye, upper and lower eyelids BOB TIM [facility] [place] [facility] Oct 24, 2024 05:32 PM SECONDARY Oth disorders of optic nerve, NEC, bilateral BOB TIM [facility] [place] [facility] Oct 24, 2024 05:32 PM SECONDARY Other rosacea BOB TIM [facility] [place] [facility] Plan of Treatment: Future Appointments (+ 6 months) and Future Tests (+/- 45 days) The Plan of Treatment section includes future care activities for the patient from all [place] [facility] This section includes future appointments and future orders which are active, pending or scheduled. Future Appointments This section includes appointments that were scheduled to occur 6 months from the date of the Encounter, up to a maximum of 20 appointments. The data comes from all [facility]. Appointment Date/Time Appointment Type Appointme nt Facility Name Nov 30, 2024 09:30 AM AMBULATORY - NONE [facility] Dec 24, 2024 08:00 AM AMBULATORY - MEDICINE [facility] Dec 24, 2024 09:30 AM AMBULATORY - MEDICINE [facility] January 07, 2025 09:00 AM AMBULATORY - MEDICINE [facility] January 24, 2025 08:30 AM AMBULATORY - MEDICINE [facility] Active, Pending, and Scheduled Orders This section includes a listing of several types of active, pending, and scheduled orders, including clinic medications orders, diagnostic test orders, procedure orders and consult orders; where the start date of the order is 45 days before the date of the Encounter or 45 days after the date of theEncounter. The data comes from all [facility]. Test Date/Time Test Type Test Details Facility Name Oct 27, 2024 12:00 AM Laboratory - Chemi stry Order PT & INR (PROTIME) BLOOD (BLUE-PLASMA) [facility] Oct 27, 2024 12:00 AM Laboratory - Chemi stry Order PTT BLOOD (BLUE-PLASMA) [facility] Oct 27, 2024 12:00 AM Laboratory - Chemi stry Order CBC AND DIFF (AUTO) BLOOD (LAV-BLOOD) [facility] Oct 27, 2024 09:25 AM Consult Order COMMUNITY CARE-INTERVENTIONAL RADIOLOGY Cons Engineering Aid's Choice [facility] Nov 30, 2024 09:30 AM Imaging - Ultrasou nd Order CAROTID DUPLEX BILAT [facility] Social History: Smoking Status (Most current) [...] Facil ity Jun 27, 2024 11:00 AM VA-TOBACCO USE MICHELLE RY DAY CIGARETTES [facility] Tobacco Use History This section includes a history of the smoking, or tobacco-related health factors, that were collected on or before the date of the Encounter. The data comes from the [place] facility where the Encounter took place. 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 [facility] [place] [facility] Jun 27, 2024 11:00 AM VA-TOBACCO USE MICHELLE RY DAY CIGARETTES [facility] [place] [facility] Jun 27, 2024 11:00 AM VA-TOBACCO USE MED NO [facility] [place] [facility] Sep 09, 2020 08:36 AM VA-TOBACCO DOESNT USE WI 30 MIN WAKEUP [facility] [place] [facility] Sep 09, 2020 08:36 AM VA-TOBACCO USE 30 YEARS OR MORE [facility] [place] [facility] Sep 09, 2020 08:36 AM VA-TOBACCO USE ADVICE [facility] [place] [facility] Sep 09, 2020 08:36 AM VA-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 The data comes from all [place] treatment facilities. Date/Time Radiology Report Provider Source Oct 23, 2024 02:43 PM ULTRASOUND NECK (THYROID,HEAD,SOFT TISSUE): ALICE RUSSO [id number] -1955 Ex Date: OCT 23, 2024@14:43 Req Phys: COMPA ELLIS Loc: [facility] ENDOCRINE MD 1 (Req'g Loc) Img Loc: ULTRASOUND Service: [facility] [place] [address] (Case [id number] COMPLETE) ULTRASOUND NECK (THYROID,HEAD,SOF(US Detailed) CPT:81279 Reason for Study: multinodular goiter Clinical History: Report Status: Verified Date Reported: OCT 24, 2024 Date Verified: OCT 24, 2024 Service Captain E-Sig: Report: ULTRASOUND NECK (THYROID,HEAD,SOFT TISSUE) HISTORY: multinodular goiter COMPARISON: CT neck 10/25/2022 TECHNIQUE: Sonographic imaging of the thyroid gland was performed at the local [place] facility. 22 images were received by the [place] National Teleradiology Program (NTP) for interpretation. FINDINGS: [...] is recommended. READING PHYSICIAN: Christiano Camacho M.D. -[id number] 10/24/2024 12:43 PST [facility] National Teleradiology Program [phone] (For Medical Practitioner Use Only) Attention Patients / Veterans: If you have questions or concerns about these test results, please contact your ordering provider or primary care team. Primary Diagnostic Code: NO ALERT REQUIRED Primary Interpreting Staff: RADIOLOGY,OUTSIDE SERVICE, Staff Physician / RADIOLOGY,OUTSIDE SERVICE [facility] Encounter Notes: All associated encounter notes This section contains the clinical notes associated to the Encounter. Date/Time Encounter Note(s) Provider Source Oct 23, 2024 03:41 PM OPTOMETRY NOTE: LOCAL TITLE: OPTOMETRY NOTE STANDARD TITLE: OPTOMETRY NOTE DATE OF NOTE: OCT 23, 2024@15:41 ENTRY DATE: OCT 23, 2024@15:42:01 AUTHOR: ISIDRO TIM COSIGNER: URGENCY: STATUS: COMPLETED Active problems - Computerized Problem List is [...] disease 17. Abdominal aortic aneurysm (SNOMED CT [id number]) 18. Localized osteoarthrosis 19. Sciatica 20. Primary Care Physician 21. Cervical radiculopathy 22. Hypothyroidism Active Outpatient Medications (including Supplies): Active Outpatient Medications Status 1) ACCU-CHEK GUIDE (GLUCOSE) TEST STRIP USE 1 STRIP TO TEST ACTIVE BLOOD SUGARS THREE TIMES DAILY NEEDED Indication: SENSOR FAILURE 2) EMPAGLIFLOZIN 25MG TAB TAKE ONE TABLET BY MOUTH ONCE DAILY ACTIVE Indication: FOR TYPE 2 DIABETES MELLITUS 3) GLUCOSE SENSOR FREESTYLE REYES 3 USE 1 SENSOR DIRECTED ACTIVE EVERY 14 DAYS 4) INSULIN,ASPART(EQV-NOVLG)100U N/ML FLXPEN INJECT DIRECTED HOLD SUBCUTANEOUSLY THREE TIMES A DAY 3 UNITS BREAKFAST, 1 UNIT PER 6 GM CARB LUNCH, AND 1 UNIT PER 8 GM CARB DINNER Indication: FOR DIABETES 5) INSULIN,GLARGINE 100 UNT/ML 3ML SOLOSTAR INJECT 19 UNITS HOLD SUBCUTANEOUSLY TWICE DAILY Indication: FOR DIABETES 6) LEVOTHYROXINE NA 175MCG TAB TAKE ONE TABLET BY MOUTH EVERY ACTIVE MORNING 30 MINUTES BEFORE BREAKFAST - TAKE ON AN EMPTY STOMACH WITH A FULL GLASS OF WATER Indication: FOR THYROID 7) LIDOCAINE 5% PATCH APPLY 1 PATCH TOPICALLY ONCE DAILY ACTIVE (LEAVE PATCH ON FOR 12 HOURS, THEN REMOVE PATCH) Indication: FOR NERVE PAIN 8) TRANSPARENT DRESSING 2 3/8IN X 2 3/4IN APPLY 1 DRESSING ACTIVE TOPICALLY EVERY 14 DAYS Active Non-VA Medications Status 1) Non-VA ASPIRIN 81MG EC TAB 81MG BY MOUTH EVERY DAY ACTIVE 2) Non-VA ATORVASTATIN CALCIUM 80MG TAB 40MG BY MOUTH AT ACTIVE BEDTIME 3) Non-VA CALCIUM 500MG (CA CARB-1.25GM) TAB 1000MG BY MOUTH ACTIVE ONCE DAILY 4) Non-VA CREON 6,000UNIT EC CAP 4 CAPSULES BY MOUTH THREE ACTIVE TIMES DAILY NEEDED Indication: meal 5) Non-VA DILTIAZEM (EQV-TIAZAC) 180MG 24HR CAP 180MG BY MOUTH ACTIVE ONCE DAILY 6) Non-VA FAMOTIDINE 10MG TAB 10MG BY MOUTH AT BEDTIME ACTIVE 7) Non-VA LINACLOTIDE 72MCG CAP 72MCG BY MOUTH ONCE DAILY ACTIVE 8) Non-VA LISINOPRIL 5MG TAB 5MG BY MOUTH ONCE DAILY ACTIVE 9) Non-VA METOPROLOL TARTRATE 25MG TAB 25MG BY MOUTH TWICE ACTIVE DAILY 10) Non-VA OTHER CAP/TAB BCG VARIABLE ACTIVE 11) Non-VA OTHER CAP/TAB VIOCASE BY MOUTH THREE TIMES A DAY ACTIVE Indication: pancreatitis 12) Non-VA WARFARIN (NON-VA) TAB DIRECTED BY MOUTH EVERY DAY ACTIVE 20 Total Medications Allergies: METFORMIN All medications including those prescribed by outside VA's, community providers, and all OTC meds were reviewed and reconciled with patient to the best of their abilities. This 69 year old MALE is seen today for for comprehensive eye examination. Medical, eye, personal, and social history are all reviewed and is contributory to today's visit for diabetes without retinopathy or macular edema either eye, bilateral cataracts as well as bilateral disorders of the optic nerve not classified elsewhere. His last eye examination was here in October 13, 2023. His most recent hemoglobin A1c obtained on September 20, 2024 was 6.5. He remains an active smoker with no interest in smoking cessation at present. (-) Pain: (-) ARORA: (-) Diplopia: (-) Flashes: (-) Floaters: (-) Amaurosis Fugax/Tia's: (-) Eye Injury: (-) Eye Surgery: (-) TBI: Family ocular history: (+) Blindness father 1 eye unknown cause (-) macular degeneration or glaucoma Chief Complaint: Mild decline in distance vision with increased difficulty with glare associated with night driving Vision: With 20/30 right eye 20/25+2 left eye Without Correction Pupils, EOMS, confrontation benton are all done and shows round reactive pupils without afferent pupillary defect with full extraocular motility and full confrontation benton to finger counting each eye Current Wear: OD: -0.75 -0.75 axis 020 OS: -0.25 +2.50 add Auto refraction: OD: -0.75 -0.75 axis 007 OS: [place] -0.25 axis 039 Refraction: OD: No improvement 20/25-1 OS: No improvement 20/25+2 Tonometry: 12 OD 12 OS Time: 3:21 PM dilated with tropicamide 1% each eye after dilation warning given and verbal consent obtained PreTreatment IOP: OD OS Pachymetry: Rosacea facies Anterior segment: Lids: Heavy dermatochalasis with ptosis left greater than right upper lid and chronic meibomian gland dysfunction all 4 lids Conj: Mild chronic injection each eye Cornea: Clear centrally without staining or pigment but with reduced tear break-up time each eye AC: 3+ and quiet each eye Iris: Normal, no NVI each eye, no transillumination defects Lens: 2-2+ nuclear sclerosis with trace anterior cortical changes each eye, no pseudoexfoliation Vit: Clear each eye Fundus exam: Dilated: xxx Non dilated: C/D: 0.70 each eye with distinct disc margins, good color and intact rim tissue no splinter hemorrhage or notching no NVD Macula: No lipid, edema, thickening each eye A/V: 1/2 each eye Vessels: Mild tortuosity each eye Periphery: No NVE, holes, tears, detachments each eye Impression: Diabetes without retinopathy or macular edema either eye. Stressed the importance of optimize control of blood sugar, blood pressure and cholesterol with healthy lifestyle. Bilateral nuclear sclerotic and cortical cataracts overall functioning well visually at present. Refit new clear PAls now, wishes to keep same frame design for sunglasses. Will also order Yellow # 2 for night [address] same frame for sunglasses. 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 Stable large optic nerve cupping with robust retinal nerve fiber layer thickness each eye and without evidence of pseudoexfoliation or pigment dispersion. Rosacea facies with chronic meibomian gland dysfunction all 4 lids currently asymptomatic with regard to dry eye symptoms. Plan: Patient education as noted above reviewed exam findings now. Discussed presence of cataracts and how this relates to his visual symptoms. Overall he is functioning well visually at present but understands he may require cataract surgery at some point in the future. Stressed the importance of continued optimize control of blood sugar, blood pressure and cholesterol with healthy lifestyle. Ordered new glasses today. Education: Diabetes: Patient was educated regarding diabetes and related ocular complications including retinopathy and cataract formation as well as other related systemic complications. The importance of good blood sugar control, blood sugar testing as recommended by their PCP and the importance of timely follow up were all emphasized. Return to Clinic 12 months or sooner if need be. Total time spent reviewing previous records, examining and counseling patient as well as entering orders day of appointment 34 minutes -3 minutes for refraction equals 31 minutes. _Alerting [employer] Software to order glasses as noted below Sun and Yellow Tint for night driving RX INFORMATION OD -0.75 -0.75 X20 Add:+2.50 Pzm:0.00 Dir: Prz2:0.00 Dir2: OS -0.25 0.00 X Add:+2.50 Pzm:0.00 Dir: Prz2:0.00 Dir2: FITTING INFORMATION FPD: NPD: [place]:R:32.5 L:31.5 SEG HT:R:20 L:20 Tint: VA Billable Items FRAME: [address] Right Lens: POLY VA PROGRESSIVE 1.586 POLY Left Lens: POLY VA PROGRESSIVE 1.586 POLY RX INFORMATION OD -0.75 -0.75 X20 Add:+2.50 Pzm:0.00 Dir: Prz2:0.00 Dir2: OS -0.25 0.00 X Add:+2.50 Pzm:0.00 Dir: Prz2:0.00 Dir2: FITTING INFORMATION FPD: NPD: [place]:R:32.5 L:31.5 SEG HT:R: L: Tint:None Shade:Mohamud Shade 3 FRAME: 3 [facility] Right Lens: POLY SINGLE VISION 1.586 POLY Left Lens: POLY SINGLE VISION 1.586 POLY RX INFORMATION OD -0.75 -0.75 X20 Add:+2.50 Pzm:0.00 Dir: Prz2:0.00 Dir2: OS -0.25 0.00 X Add:+2.50 Pzm:0.00 Dir: Prz2:0.00 Dir2: FITTING INFORMATION FPD: NPD: [place]:R:32.5 L:31.5 SEG HT:R:20 L:20 Tint:None Shade:[place]ellow [place] 2 FRAME: FX3 [facility] Right Lens: POLY VA PROGRESSIVE 1.586 POLY Left Lens: POLY VA PROGRESSIVE 1.586 POLY +++++++++++++++++++++++++++++ +++++++++++++++++++++++++++++ ++++++++++++++++++++++ +++++++++++++++++++++++++++++ +++++++++++++++++++++++++++++ ++++++++++++++++++++++ Ophthalmic medication reconciliation: He is currently not taking or prescribed any ocular medications. Medication Reconciliation: Outpatient: Has the patient been taking medications as documented in the EMLR? YES: The patient has been taking medications as documented in the EMLR. Essential Medication List for Review used to complete this medication reconciliation. INCLUDED IN THIS LIST: Alphabetical list of active outpatient prescriptions dispensed from this VA (local) and dispensed from another [place] or [facility] facility (remote) as well as inpatient orders [...] Remote Allergy/ADR Data available for this patient [facility] METFORMIN Med Recon NoGlossary (Tool #1) INCLUDED IN THIS LIST: Alphabetical list of active outpatient prescriptions dispensed from this CO (local) and dispensed from another [place] or [facility] facility (remote) as well as inpatient orders (local pending and active), local clinic medications, locally documented non-VA medications, and local prescriptions that have or been discontinued in the past 90 days. Non-VA Meds Last Documented On: Jul 02, 2024 NOTE The display of VA prescriptions dispensed from another [place] or [facility] facility (remote) is limited to active outpatient prescription entries matched to National Drug File at the originating site and may not include some items such as investigational drugs, compounds, etc. NOT INCLUDED IN THIS LIST: Medications self-entered by the patient into personal health records (i.e. [employer]) are NOT included in this list. Non-VA medications documented outside this [place], remote inpatient orders (regardless of status) and [...] DAILY FOR TYPE 2 DIABETES MELLITUS Rx# [id number] Last Released: 07/04/24 Qty/Days Supply: Rx Expiration Date: 07/03/25 Refills Remainin Indication: FOR TYPE 2 DIABETES MELLITUS Non-VA FAMOTIDINE 10MG TAB TAKE ONE TABLET BY MOUTH AT BEDTIME Medication prescribed by Non-VA provider. OUTPT INSULIN,ASPART(EQV-NOVLG)100U N/ML FLXPEN (Status = Discontinued) INJECT DIRECTED SUBCUTANEOUSLY THREE TIMES A DAY 3 UNITS AT BREAKFAST, 1 UNIT PER 8 GM CARB LUNCH, AND 1 UNIT PER 7 GM CARB DINNER PLEASE HOLD UNTIL REQUESTED Rx# [id number] Last Released: 08/02/24 Qty/Days Supply: Rx Expiration Date: 05/04/25 Refills Remainin Indication: FOR DIABETES OUTPT INSULIN,ASPART(EQV-NOVLG)100U N/ML FLXPEN (Status = On Hold) INJECT DIRECTED SUBCUTANEOUSLY THREE TIMES A DAY 3 UNITS BREAKFAST, 1 UNIT PER 6 GM CARB LUNCH, AND 1 UNIT PER 8 GM CARB DINNER Rx# [id number] Last Released: Supply: Rx Expiration Date: 10/11/25 Refills Remainin Indication: FOR DIABETES OUTPT INSULIN,GLARGINE 100 UNT/ML 3ML SOLOSTAR (Status = On Hold) INJECT 19 UNITS SUBCUTANEOUSLY TWICE DAILY Rx# [id number] Last Released: Supply: Rx Expiration Date: 10/11/25 Refills Remainin Indication: FOR DIABETES OUTPT INSULIN,GLARGINE-YFGN 100UNIT/ML PEN 3ML (Status = Discontinued) INJECT 20 UNITS SUBCUTANEOUSLY EVERY MORNING Rx# [id number] Last Released: 08/06/24 QtyDays Supply: Rx Expiration Date: 05/04/25 Refills Remainin Indication: FOR DIABETES OUTPT LEVOTHYROXINE NA 175MCG TAB (Status = Active) TAKE ONE TABLET BY MOUTH EVERY MORNING 30 MINUTES BEFORE BREAKFAST FOR THYROID - TAKE ON AN EMPTY STOMACH WITH A FULL GLASS OF WATER Rx# [id number] Last Released: 09/01/24 Qty/Days Supply: Rx Expiration Date: 07/03/25 Refills Remainin Indication: FOR THYROID OUTPT LIDOCAINE 5% PATCH (Status = Active) APPLY 1 PATCH TOPICALLY ONCE DAILY FOR NERVE PAIN (LEAVE PATCH ON FOR 12 HOURS, THEN REMOVE PATCH) Rx# [id number] Last Released: 06/29/24 Qty/Days Supply: Rx Expiration [...] THREE TIMES DAILY NEEDED SENSOR FAILURE Rx# [id number] Last Released: 05/10/24 Qty/Days Supply: Rx Expiration Date: 05/04/25 Refills Remainin Indication: SENSOR FAILURE OUTPT DEPEND UNDERWEAR,MAXIMUM,MEN SM/MED (Status = ) USE 1 BRIEF DIRECTED ONCE DAILY NEEDED Rx# [id number] Last Released: 04/10/24 Qty/Days Supply: 76/90 Rx Expiration Date: 08/01/24 Refills Remainin Indication: INCONTINENCE OUTPT GLUCOSE SENSOR FREESTYLE REYES 3 (Status = Active/Suspended) USE 1 SENSOR DIRECTED EVERY 14 DAYS Rx# [id number] Last Released: 10/02/24 Qty/Days Supply: 10/26 Rx Expiration Date: 07/03/25 Refills Remainin OUTPT NEEDLE,PEN 32G,4MM (Status = ) USE 1 NEEDLE SUBCUTANEOUSLY FOUR TIMES A DAY FOR USE WITH PEN DEVICE Rx# [id number] Last Released: 05/03/24 Qty/Days Supply: Rx Expiration Date: 07/26/24 Refills Remainin OUTPT TRANSPARENT DRESSING 2 3/8IN X 2 3/4IN (Status = Active) APPLY 1 DRESSING TOPICALLY EVERY 14 DAYS Rx# [id number] Last Released: 07/05/24 Qty/Days Supply: Rx Expiration Date: 07/04/25 Refills Remainin Declines printed copy of medication list now. /samara/ Isidro Tim OD CHIEF OF OPTOMETRY Signed: 10/24/2024 17:33 ISIDRO TIM [facility]
--- OUTSIDE RECORDS SUMMARY | 2024-10-31 08:08 | XMS_ITS | Encounter Summary ---
Author Name [place] Address [address] [place] [id number] Care Team Providers Care Heater Operator Helper Name Role Phone MARICEL ELIAS Primary Care [...] SUPPLEMEN YAMILKA MEDEX 2 Apr 29, 2020 [id number] ALICE EARL PATIENT [place]BS [place] MEDICARE SUPPLEMEN YAMILKA MEDEX 2 Apr 29, 2020 [id number] ALICE EARL PATIENT BCBS [facility] CE ORGANIZ [facility] SHARE ACTIV E Feb 27, 2012 [id number] ALICE EARL PATIENT EXPRESS SCRIPTS ([id number]) PRESCRIPT ION L4TA* Feb 27, 2012 L4TA [id number] ALICE EARL PATIENT EXPRESS SCRIPTS ([id number]) PRESCRIPT ION Feb 27, 2012 L4TA [id number] [phone] ALICE EARL PATIENT MEDICARE (WNR) MEDICARE (M) PART A Apr 29, 2020 PART A [id number] ALICE EARL PATIENT MEDICARE (WNR) MEDICARE (M) PART B Apr 29, 2020 PART B [id number] ALICE EARL PATIENT MEDICARE (WNR) MEDICARE (M) PART A Apr 29, 2020 PART A [id number] ALICE EARL PATIENT MEDICARE (WNR) MEDICARE (M) PART B Apr 29, 2020 PART B [id number] [phone] ALICE EARL PATIENT Selected Encounter This section includes the information on record at [place] for the Encounter. 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 This section includes future appointments and future orders which are active, pending or scheduled. Future Appointments This section includes appointments that were scheduled to occur 6 months from the date of the Encounter, up to a maximum of 20 appointments. The data comes from all [place] treatment facilities. Appointment Date/Time Appointment Type Appointme nt Facility Name January 25, 2024 11:00 AM AMBULATORY - MEDICINE [place] [facility] [facility] Feb 02, 2024 12:30 PM AMBULATORY - NONE [place] [facility] [place] [facility] Apr 02, 2024 09:00 AM AMBULATORY - MEDICINE [place] [place] [facility] May 03, 2024 08:30 AM [facility] May 03, 2024 03:00 PM AMBULATORY - MEDICINE [place] Jun 27, 2024 11:00 AM AMBULATORY - MEDICINE [place] [facility] Jul 02, 2024 10:30 AM AMBULATORY - MEDICINE [place] [facility] Jul 04, 2024 09:00 AM AMBULATORY - [facility]ICINE [place] [facility] Lab Results: +/- 30 days of the encounter This section includes the Chemistry and Hematology Lab Results on record with [place] for the patient. Radiology Reports and Pathology Reports are provided separately, in subsequent sections. Lab Results This section contains the Chemistry/Hematology Results that were resulted 30 days before or 30 daysafter the date of the Encounter. Date/Time Source Result Type Result - Unit Interpretation Reference Range Comment January 04, 2024 01:53 PM [facility] THYROID T4 FREE(FT4) (WROX) Specimen Type: SERUM No comment entered. Ordering Provider: COMPA ELLIS Report Released Date/Time: January 03, 2024 08:02 AM Reporting Lab: [facility] [address] [facility] [address] Performing Lab: [facility] [address] [facility] [address] THYROID T4 FREE(FT4) (WROX) 1.25 ng/dL 0.6-1.6 January 04, 2024 01:53 PM [facility] HEMOGLOBIN A1C PANEL Specimen Type: BLOOD Comment: [...] January 03, 2024 08:02 AM Reporting Lab: [facility] [address] [facility] [address] Performing Lab: [address] [address] HEMOGLOBIN A1C 7.4 H 4.0-5.6 January 04, 2024 01:53 PM [facility] MICROALBUMIN CREATININE RATIO PANEL Specimen Type: URINE No comment entered. Ordering Provider: COMPA ELLIS Report Released Date/Time: January 03, 2024 08:02 AM Reporting Lab: [facility] [place] [facility] [address] [facility] [address] Performing Lab: [facility] [address] [facility] [address] MICROALBUMIN/C REATININE RATIO 15.4 mg/g 0-29.9 MICROALBUMIN,Q UANTITATIVE 0.8 mg/dL RR UNAVAIL CREATININE URINE 51.94 mg/dL January 04, 2024 01:53 PM [facility] CALCIUM Specimen Type: SERUM No comment entered. Ordering Provider: COMPA ELLIS Report Released Date/Time: January 03, 2024 08:02 AM Reporting Lab: [facility] [address] [facility] [address] Performing Lab: [facility] [address] [facility] [address] CALCIUM 8.5 mg/dL 8.5-10.2 January 04, 2024 01:53 PM [facility] VITAMIN D (25-OH) Specimen Type: SERUM No comment entered. Ordering Provider: COMPA ELLIS Report Released Date/Time: January 03, 2024 08:02 AM Reporting Lab: [facility] [address] [facility] [address] Performing Lab: [facility] [address] [facility] [address] VITAMIN D (25-OH) 44 ng/mL 20-50 January 04, 2024 01:53 PM [facility] PTH INTACT Specimen Type: SERUM No comment entered. Ordering Provider: COMPA ELLIS Report Released Date/Time: January 03, 2024 08:02 AM Reporting Lab: [facility] [address] [facility] [address] Performing Lab: [facility] [address] [facility] [address] PTH INTACT 72.1 pg/mL H 10-65 January 04, 2024 01:53 PM [facility] TSH Specimen Type: SERUM No comment entered. Ordering Provider: COMPA ELLIS Report Released Date/Time: January 03, 2024 08:02 AM Reporting Lab: [facility] [address] [facility] [address] Performing Lab: [address] [address] TSH 2.11 u[IU]/mL 0.35-5.00 January 04, 2024 01:53 PM [facility] LIPID PANEL FASTING Specimen Type: SERUM No comment entered. Ordering Provider: COMPA ELLIS Report Released Date/Time: January 03, 2024 08:02 AM Reporting Lab: [address] [address] Performing Lab: [address] [address] CHOLESTEROL 106 mg/dL TRIGLYCERIDE 119 mg/dL 0-150 LDL calculated 37 mg/dL 0-129 CHOL/HDL 2.4 HDL CHOLESTEROL 45 mg/dL 40-60 January 04, 2024 01:53 PM [facility] BASIC METABOLIC PANEL (fasting) Specimen Type: SERUM No comment entered. Ordering Provider: COMPA ELLIS Report Released Date/Time: January 03, 2024 08:02 AM Reporting Lab: [address] [address] Performing Lab: [address] [address] UREA NITROGEN 18 mg/dL 7-25 GLUCOSE 197 mg/dL H 65-100 SODIUM 137 mmol/L 135-145 POTASSIUM 4.4 mmol/L 3.5-5.0 CHLORIDE 107 mmol/L 100-110 CO2 23 meq/L 20-30 CREATININE, Serum 0.98 mg/dL 0.50-1.40 eGFR(CKD-EPI 2020) 83 mL/min >60 Vital Signs: All taken on the encounter date This section contains inpatient and outpatient Vital Signs collected on the date of the Encounter. Date/Time Temperature Pulse Blood Pressure Respiratory Rate SP02 Pain Height Weight Body Mass Index Source January 05, 2024 10:18 AM 98.1 75 132/74 16 95 0 68 190 29 [place] [facility] [facility] Social History: Smoking Status (Most current) and Tobacco Use (All prior to encounter date) This section includes the most current, and the historical, smoking and tobacco- related health factors from the [place] facility where the Encounter took place. Current Smoking Status This section includes the most current smoking, or tobacco-related health factor, from the [place] facility where the Encounter took place. Date/Time Current Smoking Status Comment Facil ity Sep 09, 2020 08:36 AM VA-TOBACCO USER EVERY DAY [facility] Tobacco Use History This section includes a history of the smoking, or tobacco-related health factors, that were collected on or before the date of the Encounter. The data comes from the [place] facility where the Encounter took place. 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 The data comes from all [place] treatment facilities. Date/Time Radiology Report Provider Source Feb 02, 2024 12:42 PM RENAL AND BLADDER ULTRASOUND: ALICE EARL [id number] -1955 M Exm Date: FEB 02, 2024@12:42 Req Phys: COMPA ELLIS Loc: NHM/ENDOCRINE (Req'g Loc) Img Loc: ULTRASOUND Service: Unknown [facility] , (Case [id number] COMPLETE) ULTRASOUND KIDNEYS (US Detailed) CPT:16560 Reason for Study: hyperparathyroidism (Case [id number] COMPLETE) ULTRASOUND URINARY BLADDER (US Detailed) CPT:14514 Clinical History: Report Status: Verified Date Reported: FEB 02, 2024 Date Verified: FEB 02, 2024 Senior Care Assistant E-Sig:/ES/GRETCHEN SHEPHERD JR Report: Study: Genitourinary ultrasound. [...] Primary Interpreting Staff: GRETCHEN SHEPHERD JR, Radiologist (Senior Care Assistant) /GRETCHEN ESTEVEZ JR [facility] Encounter Notes: All associated encounter notes This section contains the clinical notes associated to the Encounter. 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 Pt Name: Alice Earl Pt : 1955 MR# [id number] Indication for device placement Date placed: Dec 23 2023 Date removed (date to which the CPT code is linked): Jan 05 2024 Name of device placed: Freestyle stan 2 glucose sensor date of printout of data: Date of interpretation: Jan 05 2024 Analysis of data (72 hours or more of monitoring required): Capture 61% Average 182 GMI 7.7% %CV 35.3% Very High 13% High 35% In Range 51% Low 1% Very Low 0% MN 163, 4AM 206, 8AM 291 noon 203, 4PM 174, 8PM 160 Variability wide Interpretation of data He would benefit from CHO consistency, and avoiding overtreating low bg (which he endorses. /samara/ COMPA ELLIS MD STAFF PHYSICIAN Signed: 01/05/2024 12:45 COMPA ELLIS CNTRL WSTRN [facility] HCS
--- OUTSIDE RECORDS SUMMARY | 2024-10-31 08:09 | XMS_ITS | Encounter Summary ---
Author Name [place] Address [address] [place] [address] Care Team Providers Care Project Director Name Role Phone MARICEL ELIAS Primary Care [...] SUPPLEMEN YAMILKA MEDEX 2 Apr 29, 2020 [id number] ALICE RUSSO PATIENT BCBS [place] MEDICARE SUPPLEMEN YAMILKA MEDEX 2 Apr 29, 2020 [id number] ALICE RUSSO BCBS [facility] CE ORGANIZ [facility] SHARE ACTIV E Feb 27, 2012 [id number] [phone] ALICE RUSSO PATIENT EXPRESS SCRIPTS ([id number]) PRESCRIPT ION L4TA* Feb 27, 2012 L4TA [id number] ALICE RUSSO PATIENT [employer] S[employer]IPTS ([id number]) PRESCRIPT ION Feb 27, 2012 L4TA [id number] [phone] ALICE RUSSO PATIENT MEDICARE (WNR) MEDICARE (M) PART A Apr 29, 2020 PART A [id number] ALICE RUSSO PATIENT MEDICARE (WNR) MEDICARE (M) PART B Apr 29, 2020 PART B [id number] ALICE RUSSO PATIENT MEDICARE (WNR) MEDICARE (M) PART A Apr 29, 2020 PART A [id number] [phone] ALICE RUSSO PATIENT MEDICARE (WNR) MEDICARE (M) PART B Apr 29, 2020 PART B [id number] [phone] ALICE RUSSO PATIENT Selected Encounter This section includes the information on record at [place] for the Encounter. 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 [place] [facility] Plan of Treatment: Future Appointments (+ 6 months) and Future Tests (+/- 45 days) The Plan of Treatment section includes future care activities for the patient from all [place] treatmentfacilities. This section includes future appointments and future orders which are active, pending or scheduled. Future Appointments This section includes appointments that were scheduled to occur 6 months from the date of the Encounter, up to a maximum of 20 appointments. The data comes from all [place] treatment facilities. Appointment Date/Time Appointment Type Appointme nt Facility Name Oct 23, 2024 03:00 PM AMBULATORY - NONE [place] [facility] [facility] Oct 23, 2024 03:15 PM AMBULATORY - MEDICINE [place] [facility] Oct 23, 2024 03:30 PM AMBULATORY - MEDICINE [facility] [place]L [place] [facility] Nov 30, 2024 09:30 AM [facility]BULATORY - NONE [facility] Dec 24, 2024 08:00 AM AMBULATORY - MEDIC[facility] Dec 24, 2024 09:30 AM AMBULATORY - MEDICINE [facility] January 07, 2025 09:00 AM AMBULATORY - MEDICINE [facility] January 24, 2025 08:30 AM AMBULATORY [...] of theEncounter. The data comes from all [place] treatment facilities. Test Date/Time Test Type Test Details Facility Name Oct 27, 2024 12:00 AM Laboratory - Chemi stry Order PTT BLOOD (BLUE-PLASMA) [facility] Oct 27, 2024 12:00 AM Laboratory - Chemi stry Order PT & INR (PROTIME) BLOOD (BLUE-PLASMA) [facility] Oct 27, 2024 12:00 AM Laboratory - Chemi stry Order CBC AND DIFF (AUTO) BLOOD (LAV-BLOOD) [facility] Oct 27, 2024 09:25 AM Consult Order COMMUNITY CARE-INTERVENTIONAL RADIOLOGY Cons Lpn's Choice [facility] Lab Results: +/- 30 days of the encounter This section includes the Chemistry and Hematology Lab Results on record with [place] for the patient. Radiology Reports and Pathology Reports are provided separately, in subsequent sections. Lab Results This section contains the Chemistry/Hematology Results that were resulted 30 days before or 30 daysafter the date of the Encounter. Date/Time Source Result Type Result - Unit Interpretation Reference Range Comment Sep 20, 2024 08:58 AM [facility] HEMOGLOBIN A1C PANEL Specimen Type: BLOOD [...] Jul 02, 2024 11:06 AM Reporting Lab: [facility] [address] [facility] [address] Performing Lab: [facility] [address] [facility] [address] HEMOGLOBIN A1C 6.5 H 4.0-5.6 Sep 20, 2024 08:58 AM [facility] CALCIUM Specimen Type: SERUM No comment entered. Ordering Provider: COMPA ELLIS Report Released Date/Time: Jul 02, 2024 11:06 AM Reporting Lab: [facility] [address] [facility] [address] Performing Lab: [address] [address] CALCIUM 9.0 mg/dL 8.5-10.2 Sep 20, 2024 08:58 AM [facility] VITAMIN D (25-OH) Specimen Type: SERUM No comment entered. Ordering Provider: COMPA ELLIS Report Released Date/Time: Jul 02, 2024 11:06 AM Reporting Lab: [facility] [address] [facility] [address] Performing Lab: [address] [address] VITAMIN D (25-OH) 30 ng/mL 20-50 Sep 20, 2024 08:58 AM [facility] BASIC METABOLIC PANEL (non-fasting) Specimen Type: SERUM No comment entered. Ordering Provider: COMPA ELLIS Report Released Date/Time: Jul 02, 2024 11:06 AM Reporting Lab: [facility] [address] [facility] [address] Performing Lab: [address] [address] UREA NITROGEN 9 mg/dL 7-25 GLUCOSE 170 [...] 57 135/87 18 99 5 182.8 28 [facility] Social History: Smoking Status (Most current) and Tobacco Use (All prior to encounter date) This section includes the most current, and the historical, smoking and tobacco- related health factors from the [place] facility where the Encounter took place. Current Smoking Status This section includes the most current smoking, or tobacco-related health factor, from the [place] facility where the Encounter took place. Date/Time Current Smoking Status Comment Facil ity Jun 27, 2024 11:00 AM VA-TOBACCO USE MICHELLE RY DAY CIGARETTES [facility] Tobacco Use History This section includes a history of the smoking, or tobacco-related health factors, that were collected on or before the date of the Encounter. The data comes from the [place] facility where the Encounter took place. Date/Time Smoking Status/Tobacco Use Comment F acility Jun 27, 2024 11:00 AM VA-TOBACCO SCREEN FOLLOW-UP [facility] Jun 27, 2024 11:00 AM VA-TOBACCO USE ADVICE [facility] Jun 27, 2024 11:00 AM VA-TOBACCO USE DAYCARE ASSISTANT NO [facility] Jun 27, 2024 11:00 AM VA-TOBACCO USE MICHELLE RY DAY CIGARETTES [facility] Jun 27, 2024 11:00 AM VA-TOBACCO USE MED NO [facility] Sep 09, 2020 08:36 AM VA-TOBACCO DOESNT USE WI 30 MIN WAKEUP [facility] Sep 09, 2020 08:36 AM VA-TOBACCO USE 30 YEARS OR MORE [place] [facility] Sep 09, 2020 08:36 AM VA-TOBACCO USE ADVICE [facility] Sep 09, 2020 08:36 AM VA-TOBACCO USE DAYCARE ASSISTANT NO [place] [facility]L [facility] Sep 09, 2020 08:36 AM VA-TOBACCO USE MED NO [facility] WSTRN [facility] Sep 09, 2020 08:36 AM VA-TOBACCO USER EVERY DAY [facility] Radiology Reports: +/- 30 days of [...] the Encounter. The data comes from all [place] treatment facilities. Date/Time Radiology Report Provider Source Oct 23, 2024 02:43 PM ULTRASOUND NECK (THYROID,HEAD,SOFT TISSUE): ALICE RUSSO [id number] -1955 M Ex Date: OCT 23, 2024@14:43 Req Phys: COMPA ELLIS Loc: [facility] ENDOCRINE MD 1 (Req'g Loc) Img Loc: ULTRASOUND Service: [place] [facility] [address] (Case [id number] COMPLETE) ULTRASOUND NECK (THYROID,HEAD,SOF(US Detailed) CPT:75272 Reason for Study: multinodular goiter Clinical History: Report Status: Verified Date Reported: OCT 24, 2024 Date Verified: OCT 24, 2024 Food Service Specialist E-Sig: Report: ULTRASOUND NECK (THYROID,HEAD,SOFT TISSUE) HISTORY: multinodular goiter COMPARISON: CT neck 10/25/2022 TECHNIQUE: Sonographic imaging of the thyroid gland was performed at the local [place] facility. 22 images were received by the [place] National Teleradiology Program (NTP) for interpretation. FINDINGS: [...] is recommended. READING PHYSICIAN: Christiano Camacho M.D. -[id number] 10/24/2024 12:43 [facility] [employer] Telerad[employer] Program [phone] (For Medical Practitioner Use Only) Attention Patients / Veterans: If you have questions or concerns about these test results, please contact your ordering provider or primary care team. Primary Diagnostic Code: NO ALERT REQUIRED Primary Interpreting Staff: RADIOLOGY,OUTSIDE SERVICE, Staff Physician / RADIOLOGY,OUTSIDE SERVICE [facility] Encounter Notes: All associated encounter notes This section contains the clinical notes associated to the Encounter. Date/Time Encounter Note(s) Provider Source Oct 10, 2024 11:34 AM DIABETOLOGY NOTE: LOCAL TITLE: INSULIN PUMP/CGM DOWNLOAD (T) STANDARD TITLE: DIABETOLOGY NOTE DATE OF NOTE: OCT 10, 2024@11:34 ENTRY DATE: OCT 10, 2024@11:35:01 AUTHOR: JUAN MEJÍA EXP COSIGNER: URGENCY: STATUS: COMPLETED Please select: Personal Continuous Glucose Monitor Date of Documentation:Sep Please see attached scanned document in [employer]. Sanya 3 Diabetes Type 2 /es/ Juan Mejía LPN Licensed Practical Nurse Signed: 10/10/2024 11:36 JUAN MEJÍA [facility]
--- OUTSIDE RECORDS SUMMARY | 2024-10-31 08:09 | XMS_ITS | Encounter Summary ---
Author Name [facility] [facility] [place] [facility] [place] Address [address] [place] [id number] Care Team Providers Care Assurance Services Manager Health Care Name Role Phone MARICEL BAIN Primary Care Provider Unavaila ble Insurance Providers: [...] SUPPLEMEN YAMILKA MEDEX 2 Apr 29, 2020 [id number] [phone] ALICE RUSSO PATIENT [place] SUPPLEMEN YAMILKA MEDEX 2 Apr 29, 2020 [id number] [phone] ALICE RUSSO PATIENT BCBS [facility] CE ORGANIZ [facility] SHARE ACTIV E Feb 27, 2012 [id number] ALICE RUSSO PATIENT [employer] ([id number]) PRESCRIPT ION L4TA* Feb 27, 2012 [id number] ALICE RUSSO PATIENT [employer] ([id number]) PRESCRIPT ION Feb 27, 2012 [id number] ALICE RUSSO PATIENT MEDICARE (WNR) MEDICARE (M) PART A Apr 29, 2020 PART A [id number] ALICE RUSSO PATIENT MEDICARE (WNR) MEDICARE (M) PART B Apr 29, 2020 PART B [id number] ALICE RUSSO PATIENT MEDICARE (WNR) MEDICARE (M) PART A Apr 29, 2020 PART A [id number] [phone] ALICE RUSSO PATIENT MEDICARE (WNR) MEDICARE (M) PART B Apr 29, 2020 PART B [id number] ALICE RUSSO PATIENT Selected Encounter This section includes the information on record at [place] for the Encounter. Date/Time Encounter Type Encounter Description Reason Provider Source Jun 27, 2024 11:00 AM OFFICE O/P EST MOD 30 MIN PRIMARY CARE/MEDICINE ICD-10-CM M85.9 Disorder of bone density and structure, unspecified OSIRIS BAIN AM Encounter Template Text not used by [place] Assessments - Encounter Diagnoses This section includes the primary and secondary diagnoses documented for the Encounter. Date/Time Primary/Secondary Diagnosis Diagnosis Name Provider Source Jul 14, 2024 11:30 AM PRIMARY Disorder of bone density and structure, unspecified BAIN,WILL JORGE J [place] [facility] [place] [facility] Jul 14, 2024 11:30 AM SECONDARY Diabetes due to underlying condition w/o complications BAIN,WILL JORGE J ND CNT [facility] [place] [facility] Jul 14, 2024 11:30 AM SECONDARY Essential (primary) hypertension BAIN,WILL JORGE J ND [facility] [place] [facility] Jul 14, 2024 11:30 AM SECONDARY Hyperparathyroidis m, unspecified BAIN,WILL JORGE J ND CNT [facility] [place] [facility] Jul 14, 2024 11:30 AM SECONDARY Malignant neoplasm of bladder, unspecified BAIN,WILL JORGE J ND CNT [facility] [place] [facility] Jul 14, 2024 11:30 AM SECONDARY Meniere's disease, unspecified ear BAIN,WILL JORGE J [place] [facility] [place] [facility] Jul 14, 2024 11:30 AM SECONDARY Unspecified atrial fibrillation JAIRO BAIN [place] [facility] [place] [facility] Plan of Treatment: Future Appointments (+ 6 months) and Future Tests (+/- 45 days) The Plan of Treatment section includes future care activities for the [facility] [place] [facility] This section includes future appointments and future orders which are active, pending or scheduled. Future Appointments This section includes appointments that were scheduled to occur 6 months from the date of the Encounter, up to a maximum of 20 appointments. The data comes from all [facility]. Appointment Date/Time Appointment Type Appointme nt Facility Name Jul 02, 2024 10:30 AM AMBULATORY - MEDICINE [place] C [facility] [place] [facility] Jul 04, 2024 09:00 AM AMBULATORY - MEDICINE [place] C [facility] [place] [facility] Sep 06, 2024 03:00 PM AMBULATORY - MEDICINE [facility] Sep 20, 2024 08:30 AM AMBULATORY - MEDICINE [facility] Sep 26, 2024 09:30 AM AMBULATORY - MEDICINE ND C [facility] [place] [facility] Oct 10, 2024 08:30 AM AMBULATORY - MEDICINE ND C [facility] [place] [facility] Oct 23, 2024 03:00 PM AMBULATORY - NONE [place] [facility] [place] [facility] Oct 23, 2024 03:15 PM AMBULATORY - MEDICINE ND C [facility] [place] [facility] Oct 23, 2024 03:30 PM AMBULATORY - MEDICINE ND C [facility] [place] [facility] Nov 30, 2024 09:30 AM AMBULATORY - NONE [place] [facility] [place] [facility] Dec 24, 2024 08:00 AM AMBULATORY - MEDICINE ND C [facility] [place] [facility] Dec 24, 2024 09:30 AM AMBULATORY - MEDICINE ND C [facility] [place] [facility] Active, Pending, and Scheduled Orders This section includes a listing of several types of active, pending, and scheduled orders, including clinic medications orders, diagnostic test orders, procedure orders and consult orders; where the start date of the order is 45 days before the date of the Encounter or 45 days after the date of theEncounter. The data comes from all [facility]. Test Date/Time Test Type Test Details Facility Name Jun 27, 2024 12:00 AM Laboratory - Chemistry Order HEMOGLOBIN A1C PANEL BLOOD (LAV-BLOOD) [facility] Jun 27, 2024 12:00 AM Laboratory - Chemistry Order PSA BLOOD (SST-SERUM) [facility] Jun 27, 2024 12:00 AM Laboratory - Chemistry Order PT & INR (PROTIME) BLOOD (BLUE-PLASMA) [facility] Jun 27, 2024 12:00 AM Laboratory - Chemistry Order TSH BLOOD (SST-SERUM) [facility] Jun 27, 2024 12:00 AM Laboratory - Chemistry Order BASIC METABOLIC PANEL (non-fasting) BLOOD (SST-SERUM) [facility] Jun 27, 2024 12:00 AM Laboratory - Chemistry Order CBC BLOOD (LAV-BLOOD) [facility] Jul 02, 2024 12:00 AM Laboratory - Chemistry Order CALCIUM, 24HR PANEL 24 HR URINE [facility] Jul 02, 2024 12:00 AM Laboratory - Chemistry Order TSH BLOOD (SST-SERUM) [facility] Jul 02, 2024 12:00 AM Laboratory - Chemistry Order CALCIUM BLOOD (SST-SERUM) [facility] Lab Results: +/- 30 days of [...] Result - Unit Interpretation Reference Range Comment Jun 27, 2024 11:33 AM [facility] THYROID T4 FREE(FT4) (WROX) Specimen Type: SERUM No comment entered. Ordering Provider: COMPA ELLIS Report Released Date/Time: Apr 20, 2024 06:27 PM Reporting Lab: [facility] [address] [facility] [address] Performing Lab: [facility] [address] [facility] [address] THYROID T4 FREE(FT4) (WROX) 1.55 ng/dL 0.6-1.6 Jun 27, 2024 11:33 AM [facility] CALCIUM Specimen Type: SERUM No comment entered. Ordering Provider: COMPA ELLIS Report Released Date/Time: Apr 20, 2024 06:27 PM Reporting Lab: [facility] [address] [facility] [address] Performing Lab: [facility] [address] [facility] [address] CALCIUM 9.4 mg/dL 8.5-10.2 Jun 27, 2024 11:33 AM [facility] VITAMIN D (25-OH) Specimen Type: SERUM No comment entered. Ordering Provider: COMPA ELLIS Report Released Date/Time: Apr 20, 2024 06:27 PM Reporting Lab: [address] [address] Performing Lab: [facility] [address] [facility] [address] VITAMIN D (25-OH) 37 ng/mL 20-50 Jun 27, 2024 11:33 AM [facility] PTH INTACT Specimen Type: SERUM No comment entered. Ordering Provider: COMPA ELLIS Report Released Date/Time: Apr 20, 2024 06:27 PM Reporting Lab: [address] [address] Performing Lab: [facility] [address] [facility] [address] PTH INTACT 62.8 pg/mL 10-65 Jun 25, 2024 10:14 AM [facility] HEMOGLOBIN A1C PANEL Specimen Type: BLOOD Comment: Values obtained from A1C measurements can vary. For atypical A1C assays, a reported value of 7.0 could actually be between 6.72 and 7.28 if measured by a reference method. A reported value of 9.0 could actually be between 8.73 and 9.27. Ref: http://www.ngs p.org/CAPdata. asp Ordering Provider: OSIRIS BAIN AM Report Released Date/Time: Jun 14, 2024 02:11 PM Reporting Lab: [facility] [address] [facility] [address] [facility]forming [facility]: [facility] [address] [address] HEMOGLOBIN A1C 6.3 H 4.0-5.6 Jun 25, 2024 10:14 AM [facility] LIPID PANEL, NON FASTING Specimen Type: SERUM No comment entered. Ordering Provider: OSIRIS BAIN AM Report Released Date/Time: Jun 14, 2024 02:11 PM Reporting Lab: [address] [address] Performing Lab: [address] [address] CHOLESTEROL 95 mg/dL TRIGLYCERIDE 91 mg/dL 0-150 LDL calculated 30 mg/dL 0-129 CHOL/HDL 2.0 HDL CHOLESTEROL 47 mg/dL 40-60 Jun 25, 2024 10:14 AM [facility] CBC Specimen Type: BLOOD No comment entered. Ordering Provider: OSIRIS BAIN AM Report Released Date/Time: Jun 14, 2024 02:11 PM Reporting Lab: [facility] [address] [facility] [address] Performing Lab: [address] [address] WBC 6.96 10*3/uL 4.50-11.00 RBC 4.67 10*6/uL 4.23-5.66 HGB 15.9 g/dL 12.8-17 HCT 46.1 39.2-50.4 MCV 98.7 fL 82-99 MCHC 34.5 g/dL 30.8-35.1 PLT 148 10*3/uL 140-360 RDW-CV 13.0 12.0-16.0 MCH 34.0 pg H 26.2-32.6 Jun 25, 2024 10:14 AM [facility] LIVER FUNCTION Specimen Type: SERUM No comment entered. Ordering Provider: OSIRIS BAIN AM Report Released Date/Time: Jun 14, 2024 02:11 PM Reporting Lab: [address] [address] Performing Lab: [address] [address] PROTEIN,TOTAL 7.0 g/dL 6.0-8.3 ALBUMIN 4.0 g/dL 3.5-5.0 ALKALINE PHOSPHATASE 88 U/L 40-150 AST 14 U/L 5-34 ALT 17 U/L BILIRUBIN, TOTAL 0.7 mg/dL 0.2-1.2 Jun 25, 2024 10:14 AM [facility] BASIC METABOLIC PANEL (non-fasting) Specimen Type: SERUM No comment entered. Ordering Provider: OSIRIS BAIN AM Report Released Date/Time: Jun 14, 2024 02:11 PM Reporting Lab: [address] [address] Performing Lab: [address] [address] UREA NITROGEN 9 mg/dL 7-25 GLUCOSE 166 mg/dL H 65-100 SODIUM 137 mmol/L 135-145 POTASSIUM 3.8 mmol/L 3.5-5.0 CHLORIDE 103 mmol/L 100-110 CO2 23 meq/L 20-30 CREATININE, Serum 1.00 mg/dL 0.50-1.40 eGFR(CKD-EPI 2020) 81 mL/min >60 Jun 25, 2024 10:14 AM [facility] MICROALBUMIN CREATININE RATIO PANEL Specimen Type: URINE No comment entered. Ordering Provider: OSIRIS BAIN AM Report Released Date/Time: Jun 14, 2024 02:11 PM Reporting Lab: [address] [address] Performing Lab: [address] [address] MICROALBUMIN/C REATININE RATIO 18.0 mg/g 0-29.9 MICROALBUMIN,Q UANTITATIVE 1.3 mg/dL RR UNAVAIL CREATININE URINE 72.19 mg/dL Jun 25, 2024 10:14 AM [facility] PSA Specimen Type: SERUM No comment entered. Ordering Provider: OSIRIS BAIN AM Report Released Date/Time: Jun 14, 2024 02:11 PM Reporting Lab: [facility] [address] [facility] [address] Performing Lab: [facility] [address] [address] PSA < 0.10 ng/mL 0.00-4.00 Jun 25, 2024 10:14 AM [facility] TSH Specimen Type: SERUM No comment entered. Ordering Provider: OSIRIS BAIN AM Report Released Date/Time: Jun 14, 2024 02:11 PM Reporting Lab: [facility] [address] Performing Lab: [facility] [address] TSH 3.53 u[IU]/mL 0.35-5.00 Jun 25, 2024 10:14 AM [facility] PT & INR (PROTIME) Specimen Type: PLASMA No comment entered. Ordering Provider: OSIRIS BAIN AM Report Released Date/Time: Jun 14, 2024 02:11 PM Reporting Lab: [facility] [address] [address] Performing Lab: [facility] [address] [address] INR 2.3 PROTIME 25.5 s H 10.0-13.1 Vital Signs: All taken on the encounter date This section contains inpatient and outpatient Vital Signs collected on the date of the Encounter. Date/Time Temperature Pulse Blood Pressure Respiratory Rate SP02 Pain Height Weight Body Mass Index Source Jun 27, 2024 10:53 AM 98.3 76 150/93 20 100 9 68 182 28 [facility] Social History: Smoking Status (Most current) [...] Date/Time Current Smoking Status Comment Guerrero ity Jun 27, 2024 11:00 AM VA-TOBACCO USE MICHELLE RY DAY CIGARETTES [facility] Tobacco Use History This section includes a history of the smoking, or tobacco-related health factors, that were collected on or before the date of the Encounter. The data comes from the [place] facility where the Encounter took place. Date/Time Smoking Status/Tobacco Use Comment F acility Jun 27, 2024 11:00 AM VA-TOBACCO SCREEN FOLLOW-UP [facility] [place] [facility] Jun 27, 2024 11:00 AM VA-TOBACCO USE ADVICE [facility] [place] [facility] Jun 27, 2024 11:00 AM VA-TOBACCO USE LUMBER SORTER MACHINE NO [facility] [place] [facility] Jun 27, 2024 11:00 AM VA-TOBACCO USE MICHELLE RY DAY CIGARETTES [facility] [place] [facility] Jun 27, 2024 11:00 AM VA-TOBACCO USE MED NO [facility] [place] [facility] Sep 09, 2020 08:36 AM VA-TOBACCO DOESNT USE WI 30 MIN WAKEUP [place] [facility] [place] [facility] Sep 09, 2020 08:36 AM VA-TOBACCO USE 30 YEARS OR MORE [facility] [place] [facility] Sep 09, 2020 08:36 AM VA-TOBACCO USE ADVICE [facility] [place] [facility] Sep 09, 2020 08:36 AM VA-TOBACCO USE LUMBER SORTER MACHINE NO [facility] [place] [facility] Sep 09, 2020 08:36 AM VA-TOBACCO USE MED NO [facility] [place] [facility] Sep 09, 2020 08:36 AM VA-TOBACCO USER EVERY DAY [place] [facility] [place] [facility] Encounter Notes: All associated encounter notes This section contains the clinical notes associated to the Encounter. Date/Time Encounter Note(s) Provider Source Jun 28, 2024 07:44 AM ADDENDUM: LOCAL TITLE: Addendum STANDARD TITLE: ADDENDUM DATE OF NOTE: JUN 28, 2024@07:44 ENTRY DATE: JUN 28, 2024@07:44:01 AUTHOR: MARICEL BAIN EXP COSIGNER: URGENCY: STATUS: COMPLETED please assign to NO PACT 7. /es/ Maricel Bain DNP, SCHOOL RESOURCE OFFICER-BC, CNL Primary Care Nurse Practitioner Signed: 06/28/2024 07:44 Receipt Acknowledged By: 07/03/2024 15:20 /es/ DIANE MARTINEZ VALVE GRINDER AMSA === --- Original Document --- 06/27/24 NURSE PRACTITIONER OUTPATIENT NOTE: Chief complaint: Patient is a 69 year old . HPI: Pleasant male [place] here to follow up, first visit with me. He was following in [facility]. He is followed in the community, Dr. Brantley. NonVA providers: PCP: Dr Brantley Cardiology: Dr Strong Urology: Dr Ramirez Vascular: Dr Daley Allergies: METFORMIN The following VA and Non-VA meds were reconciled with patient. The patient was educated on the use of the medications including indication and side effects. Active and Recently Outpatient Medications (excluding Supplies): Active Outpatient Medications Status 1) ACCU-CHEK GUIDE (GLUCOSE) TEST STRIP USE 1 STRIP TO ACTIVE TEST BLOOD SUGARS THREE TIMES DAILY NEEDED SENSOR FAILURE 2) INSULIN,ASPART(EQV-NOVLG) 100UN/ML FLXPEN INJECT HOLD DIRECTED SUBCUTANEOUSLY THREE TIMES A DAY 3 UNITS AT BREAKFAST, 1 UNIT PER 8 GM CARB LUNCH, AND 1 UNIT PER 7 GM CARB DINNER PLEASE HOLD UNTIL REQUESTED 3) INSULIN,GLARGINE-YFGN 100UNIT/ML PEN 3ML INJECT 20 HOLD UNITS SUBCUTANEOUSLY EVERY MORNING 4) LEVOTHYROXINE NA (SYNTHROID) 175MCG TAB TAKE ONE ACTIVE TABLET BY MOUTH EVERY MORNING 30 MINUTES BEFORE BREAKFAST FOR THYROID - TAKE ON AN EMPTY STOMACH WITH A FULL GLASS OF WATER Pending Outpatient Medications Status 1) LIDOCAINE 5% PATCH APPLY 1 PATCH TOPICALLY ONCE DAILY PENDING (LEAVE PATCH ON FOR 12 HOURS, THEN REMOVE PATCH) Active Non-VA Medications Status 1) Non-VA ASPIRIN 81MG EC TAB 81MG BY MOUTH EVERY DAY ACTIVE 2) Non-VA ATORVASTATIN CALCIUM 80MG TAB 40MG BY MOUTH AT ACTIVE BEDTIME 3) Non-VA CALCIUM 500MG (CA CARB-1.25GM) TAB 1000MG BY ACTIVE MOUTH ONCE DAILY 4) Non-VA CREON 6,000UNIT EC CAP 4 CAPSULES BY MOUTH ACTIVE THREE TIMES DAILY NEEDED 5) Non-VA DILTIAZEM (EQV-TIAZAC) 360MG 24HR CAP 360MG BY ACTIVE MOUTH ONCE DAILY 6) Non-VA FAMOTIDINE 10MG TAB 10MG BY MOUTH AT BEDTIME ACTIVE 7) Non-VA LINACLOTIDE 72MCG CAP 72MCG BY MOUTH ONCE ACTIVE DAILY 8) Non-VA LISINOPRIL 5MG TAB 5MG BY MOUTH ONCE DAILY ACTIVE 9) Non-VA METOPROLOL TARTRATE 25MG TAB 25MG BY MOUTH ACTIVE TWICE DAILY 10) Non-VA OTHER CAP/TAB BCG VARIABLE ACTIVE 11) Non-VA OTHER CAP/TAB VIOCASE BY MOUTH THREE TIMES A ACTIVE DAY 12) Non-VA WARFARIN (NON-VA) TAB DIRECTED BY MOUTH ACTIVE EVERY DAY 17 Total Medications Review of Systems: Constitutional: (-)for Fevers, chills, weakness, nights sweats On examination: 98.3 F [36.8 C] (06/27/2024 10:53)150/93 (06/27/2024 10:53)76 (06/27/2024 10:53)20 (06/27/2024 10:53)9 (06/27/2024 10:53)BMI: 27.7182 lb [82.55 kg] (06/27/2024 10:53) [place] is alert and oriented X3 Cardiovasc: 2plus carotids without bruits, no JVD Heart Reguler rate and rhythm NL S1S2 no S3 or murmur Respiration: Normal respiratory effort, lungs clear ABD: Benign normal active bowel sounds no HSM no rebound or referred pain EXT: no clubbing, edema, or cyanosis All diagnostics from past month were reviewed with patient. Assessment/plan: Active problems - Computerized Problem List is the source for the following: ASSESSMENT/PLAN: 1. 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 A Fib: dxed 2020, managed by Dr Strong, on diltiazem SA 360mg/day and coumadin 3. CAD (s/p ID [id number]): on metoprolol tartrate 50mg BID, followed by cardiology/Dr Strong 4. Peripheral Vascular Dz: on warfarin as directed by Dr Brantley, s/p RLE bypass, s/p 4 stents LLE, followed by Dr Daley 5. AAA: followed by CAL[facility]A Hernandez on screening, stable at 2 cm (right common iliac artery) 6. Hypertension: on diltiazem 360mg/day and metoprolol tartrate 50mg BID 7. Mixed Hyperlipidemia: on statin, well controlled 8. DM Type 2: (panctogenic diabetes) managed by padilla Francisco 9. Hypothyroidism: managed by Dr Ellis 10. Osteoporosis: on calcium/Vit D daily, managed by Dr Ellis 11. Meniere's Dz: followed by nonVA ENT in [place] 12. Senile Chronic Pancreatitis: 2* to vascular disease - followed by Dr Richard in [place], Dr Barros & Dr Pan at [facility] in [place]. 13. Gastroparesis: followed by GI 14. Tobacco Use Disorder: counseled to quit, nonVA PCP moniters yearly with LDCT 15. GERD: on famotidine 10mg/QHS Review of medial record = 5mins Time spent with Patient including shared decision making = 20 mins Post visit documentation = 5mins Total time = 30 mins Follow up visit in 6 mos. HTN Assess for Elevated BP>=140/90: Repeat blood pressure: 138/86 The patient's blood pressure is usually adequately controlled. No medication changes are indicated at this time. PAVE Foot Check: A complete foot check was completed at this encounter. VISUAL INSPECTION: Includes inspection for skin breaks, deformity, erythema, trauma, pallor on elevation, dependent rubor, nail deformities, extensive callus and pitting edema. Visual exam results: Normal PEDAL PULSES: Includes palpation of dorsalis and posterior tibial pulses and signs/symptoms of vascular compromise like pain, pallor, parasthesia or paralysis. Present (even if diminished) SENSORY CHECK: Includes 10 gram Monofilament ([place]-Wilma) test of sensation. Intact (Greater than or equal to 80% of sites checked) Abnormal (Less than 80% of sites checked): Intact LOW-RISK: LOW RISK INFORMATION PROVIDED: 1. Advised patient not to walk barefoot. 2. Explained the importance of daily foot checks for changes. 3. Stressed the importance of daily foot hygiene, including bathing and complete drying. Medication Reconciliation: Outpatient: Has the patient been [...] whether with a VA or non-VA provider. /samara/ Maricel Bain DNP, SCHOOL RESOURCE OFFICER-BC, CNL Primary Care Nurse Practitioner Signed: 06/28/2024 07:43 MARICEL BAIN [place] [facility] [place] [facility] Jun 27, 2024 11:00 AM PRIMARY CARE NURSE PRACTITIONER OUTPATIENT NOTE: LOCAL TITLE: NURSE PRACTITIONER OUTPATIENT NOTE STANDARD TITLE: PRIMARY CARE NURSE PRACTITIONER OUTPATIENT NOTE DATE OF NOTE: JUN 27, 2024@11:00 ENTRY DATE: JUN 28, 2024@07:32:34 AUTHOR: MARICEL BAIN EXP COSIGNER: URGENCY: STATUS: COMPLETED NURSE PRACTITIONER OUTPATIENT NOTE Has ADDENDA Chief complaint: Patient is a 69 year old . HPI: Pleasant male [place] here to follow up, first visit with me. He was following in [facility]. He is followed in the community, Dr. Brantley. NonVA providers: PCP: Dr Brantley Cardiology: Dr Strong Urology: Dr Ramirez Vascular: Dr Daley Allergies: METFORMIN The following VA and Non-VA meds were reconciled with patient. The patient was educated on the use of the medications including indication and side effects. Active and Recently Outpatient Medications (excluding Supplies): Active Outpatient Medications Status 1) ACCU-CHEK GUIDE (GLUCOSE) TEST STRIP USE 1 STRIP TO ACTIVE TEST BLOOD SUGARS THREE TIMES DAILY NEEDED SENSOR FAILURE 2) INSULIN,ASPART(EQV-NOVLG) 100UN/ML FLXPEN INJECT HOLD DIRECTED SUBCUTANEOUSLY THREE TIMES A DAY 3 UNITS AT BREAKFAST, 1 UNIT PER 8 GM CARB LUNCH, AND 1 UNIT PER 7 GM CARB DINNER PLEASE HOLD UNTIL REQUESTED 3) INSULIN,GLARGINE-YFGN 100UNIT/ML PEN 3ML INJECT 20 HOLD UNITS SUBCUTANEOUSLY EVERY MORNING 4) LEVOTHYROXINE NA (SYNTHROID) 175MCG TAB TAKE ONE ACTIVE TABLET BY MOUTH EVERY MORNING 30 MINUTES BEFORE BREAKFAST FOR THYROID - TAKE ON AN EMPTY STOMACH WITH A FULL GLASS OF WATER Pending Outpatient Medications Status 1) LIDOCAINE 5% PATCH APPLY 1 PATCH TOPICALLY ONCE DAILY PENDING (LEAVE PATCH ON FOR 12 HOURS, THEN REMOVE PATCH) Active Non-VA Medications Status 1) Non-VA ASPIRIN 81MG EC TAB 81MG BY MOUTH EVERY DAY ACTIVE 2) Non-VA ATORVASTATIN CALCIUM 80MG TAB 40MG BY MOUTH AT ACTIVE BEDTIME 3) Non-VA CALCIUM 500MG (CA CARB-1.25GM) TAB 1000MG BY ACTIVE MOUTH ONCE DAILY 4) Non-VA CREON 6,000UNIT EC CAP 4 CAPSULES BY MOUTH ACTIVE THREE TIMES DAILY NEEDED 5) Non-VA DILTIAZEM (EQV-TIAZAC) 360MG 24HR CAP 360MG BY ACTIVE MOUTH ONCE DAILY 6) Non-VA FAMOTIDINE 10MG TAB 10MG BY MOUTH AT BEDTIME ACTIVE 7) Non-VA LINACLOTIDE 72MCG CAP 72MCG BY MOUTH ONCE ACTIVE DAILY 8) Non-VA LISINOPRIL 5MG TAB 5MG BY MOUTH ONCE DAILY ACTIVE 9) Non-VA METOPROLOL TARTRATE 25MG TAB 25MG BY MOUTH ACTIVE TWICE DAILY 10) Non-VA OTHER CAP/TAB BCG VARIABLE ACTIVE 11) Non-VA OTHER CAP/TAB VIOCASE BY MOUTH THREE TIMES A ACTIVE DAY 12) Non-VA WARFARIN (NON-VA) TAB DIRECTED BY MOUTH ACTIVE EVERY DAY 17 Total Medications Review of Systems: Constitutional: (-)for Fevers, chills, weakness, nights sweats On examination: 98.3 F [36.8 C] (06/27/2024 10:53)150/93 (06/27/2024 10:53)76 (06/27/2024 10:53)20 (06/27/2024 10:53)9 (06/27/2024 10:53)BMI: 27.7182 lb [82.55 kg] (06/27/2024 10:53) [place] is alert and oriented X3 Cardiovasc: 2plus carotids without bruits, no JVD Heart Reguler rate and rhythm NL S1S2 no S3 or murmur Respiration: Normal respiratory effort, lungs clear ABD: Benign normal active bowel sounds no HSM no rebound or referred pain EXT: no clubbing, edema, or cyanosis All diagnostics from past month were reviewed with patient. Assessment/plan: Active problems - Computerized Problem List is the source for the following: ASSESSMENT/PLAN: 1. 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 A Fib: dxed 2020, managed by Dr Strong, on diltiazem SA 360mg/day and coumadin 3. CAD (s/p ID 2003): on metoprolol tartrate 50mg BID, followed by cardiology/Dr Strong 4. Peripheral Vascular Dz: on warfarin as directed by Dr Brantley, s/p RLE bypass, s/p 4 stents LLE, followed by Dr Daley 5. AAA: followed by Dr Daley, MSD on screening, stable at 2 cm (right common iliac artery) 6. Hypertension: on diltiazem 360mg/day and metoprolol tartrate 50mg BID 7. Mixed Hyperlipidemia: on statin, well controlled 8. DM Type 2: (panctogenic diabetes) managed by Dr Ellis, controlled 9. Hypothyroidism: managed by Dr Ellis 10. Osteoporosis: on calcium/Vit D daily, managed by Dr Ellis 11. Meniere's Dz: followed by nonVA ENT in [place] 12. Senile Chronic Pancreatitis: 2* to vascular disease - followed by Dr Richard in [place], Dr Barros & Dr Pan at [facility] in [place]. 13. Gastroparesis: followed by GI 14. Tobacco Use Disorder: counseled to quit, nonVA PCP moniters yearly with LDCT 15. GERD: on famotidine 10mg/QHS Review of medial record = 5mins Time spent with Patient including shared decision making = 20 mins Post visit documentation = 5mins Total time = 30 mins Follow up visit in 6 mos. HTN Assess for Elevated BP>=140/90: Repeat blood pressure: 138/86 The patient's blood pressure is usually adequately controlled. No medication changes are indicated at this time. PAVE Foot Check: A complete foot check was completed at this encounter. VISUAL INSPECTION: Includes inspection for skin breaks, deformity, erythema, trauma, pallor on elevation, dependent rubor, nail deformities, extensive callus and pitting edema. Visual exam results: Normal PEDAL PULSES: Includes palpation of dorsalis and posterior tibial pulses and signs/symptoms of vascular compromise like pain, pallor, parasthesia or paralysis. Present (even if diminished) SENSORY CHECK: Includes 10 gram Monofilament ([place]) test of sensation. Intact (Greater than or equal to 80% of sites checked) Abnormal (Less than 80% of sites checked): Intact LOW-RISK: LOW RISK INFORMATION PROVIDED: 1. Advised patient not to walk barefoot. 2. Explained the importance of daily foot checks for changes. 3. Stressed the importance of daily foot hygiene, including bathing and complete drying. Medication Reconciliation: Outpatient: Has the patient been taking medications as documented in the EMLR? YES: The patient has been taking medications as documented in the EMLR. Essential Medication List for Review used to complete this medication reconciliation. INCLUDED IN THIS LIST: Alphabetical list of active outpatient prescriptions dispensed from this [facility] (local) and dispensed from another [facility] or [facility] facility (remote) as well as [...] whether with a VA or non-VA provider. /samara/ Maricel Bain DNP, [place]MA-[place]BLE, CNL Primary Care Nurse Practitioner Signed: 06/28/2024 07:43 06/28/2024 ADDENDUM STATUS: COMPLETED please assign to NO PACT 7. /es/ Maricel Bain DNP, SCHOOL RESOURCE OFFICER-BC, CNL Primary Care Nurse Practitioner Signed: 06/28/2024 07:44 Receipt Acknowledged By: 07/03/2024 15:20 /es/ DIANE MARTINEZ [employer] GRINDER JACOB 09/04/2024 ADDENDUM STATUS: COMPLETED Assess Statin Use - Lipids (CVD/DM): The patient is still taking the NON-VA statin medication as documented. Tobacco Use Screening: The patient smokes cigarettes every day. The patient has never used other types of tobacco. Patient was advised to stop smoking and/or using other tobacco products. Advised patient that a combination of behavioral counseling and FDA-approved cessation medications is the most effective way to ensure their success in stopping to smoke and/or using other tobacco products. The patient was not interested in additional information about behavioral counseling and other support strategies discussed. Informed patient that medications can help with cravings and withdrawal symptoms, and they greatly increase the chances of successfully stopping your tobacco use. The patient was not interested in a prescription for tobacco cessation medications. Depression Screening: Perform PHQ-2 A PHQ-2 screen was performed. The score was 0 which is a negative screen for depression. Over the past two weeks, how often have you been bothered by the following problems? 1. Little interest or pleasure in doing things Not at all 2. Feeling down, depressed, or hopeless Not at all Alcohol Use Screen (AUDIT-C): Alcohol Screen: SCREEN FOR ALCOHOL (AUDIT-C) An alcohol screening test (AUDIT-C) was negative (score=1). 1. How often did you have a drink containing alcohol in the past year? Consider a drink to be a 12 ounce can or bottle of regular beer, 8 ounces of malt liquor, a 5 ounce glass of table wine, or a 1.5 ounce shot of liquor (like scotch, gin, or vodka). Monthly or less 2. How many drinks containing alcohol did you have on a typical day when you were drinking in the past year? One or two drinks 3. How often did you have six or more drinks on one occasion in the past year? Never Initial Lung Cancer Screen (Provider): No clinical exclusions, patient is a current candidate for the lung cancer screening program. Patient declines lung cancer screening THIS YEAR ONLY. Lung cancer screening information provided. Comment: he follows with his non va pcp Patient currently uses cigarettes and does not want assistance with smoking cessation at this time. Sexual Orientation: The patient thinks of their sexual orientation as: Straight or Heterosexual /samara/ Maricel Bain DNP, S[employer] RESOURCE OFFICER-BC, CNL Primary Care Nurse Practitioner Signed: 09/04/2024 15:44 MARICEL BAIN [facility] Jun 27, 2024 10:56 AM PREVENTIVE MEDICINE NURSING NOTE: LOCAL TITLE: CLINICAL REMINDERS/NURSING STANDARD TITLE: PREVENTIVE MEDICINE NURSING NOTE DATE OF NOTE: JUN 27, 2024@10:56 ENTRY DATE: JUN 27, 2024@10:56:28 AUTHOR: CHACE MONTALVO EXP COSIGNER: URGENCY: STATUS: COMPLETED Homelessness/Food Insecurity Screen: In the past 2 months, have you been living in stable housing that you own, rent, or stay in as part of a household? Yes - Living in stable housing. Are you worried or concerned that in the next 2 months you may NOT have stable housing that you own, rent, or stay in as part of a household? No - Not worried about housing near future [facility] [place] reports the following: Within the past 12 months, you worried whether your food would run out before you got money to buy more. Never true Within the past 12 months, the food you bought just didn't last and you didn't have money to get more. Never true /samara/ Chace [facility] Case Management Rn WELLNESS EDUCATOR,PRIMARY CARE Signed: 06/27/2024 10:57 CHACE MONTALVO [facility]
--- OUTSIDE RECORDS SUMMARY | 2024-10-31 08:09 | XMS_ITS | Encounter Summary ---
Author Name [facility] [place] [facility] [place] Address [address] [place] [id number] Care Team Providers Care Hydroelectric Production Manager Name Role Phone MARICEL ELIAS Primary Care Provider [facility] Insurance Providers: All historical and current Section [...] Name Patient's Relationship to Policy Ram PATTI CALVO OF CT (BLUECARD) MEDICARE SUPPLEMEN YAMILKA MEDEX 2 Apr 29, 2020 [id number] [phone] ALICE RUSSO [place] SUPPLEMEN [place]IL[place] MEDEX 2 Apr 29, 2020 [id number] ALICE RUSSO BCBS [facility] SHARE ACTIV E Feb 27, 2012 [id number] [phone] ALICE RUSSO PATIENT [employer] ([id number]) PRESCRIPT ION L4TA* Feb 27, 2012 [id number] ALICE RUSSO PATIENT [employer] ([id number]) PRESCRIPT ION Feb 27, 2012 [id number] [phone] ALICE RUSSO PATIENT MEDICARE (WNR) MEDICARE (M) PART A Apr 29, 2020 PART A [id number] ALICE RUSSO PATIENT MEDICARE (WNR) MEDICARE (M) PART B Apr 29, 2020 PART B [id number] ALICE RUSSO PATIENT MEDICARE (WNR) MEDICARE (M) PART A Apr 29, 2020 PART A [id number] [phone] ALICE RUSSO PATIENT MEDICARE (WNR) MEDICARE (M) PART B Apr 29, 2020 PART B [id number] ALICE RUSSO PATIENT Selected Encounter This section includes the information on record at [place] for the Encounter. Date/Time Encounter Type Encounter Description Reason Provider Source Sep 20, 2024 08:30 AM OFFICE O/P EST LOW 20 MIN PODIATRY ICD-10-CM L60.3 Nail dystrophy HARSHA LANDAVERDE Mainor Encounter Template Text not used by [place] Assessments - Encounter Diagnoses This section includes the primary and secondary diagnoses documented for the Encounter. Date/Time Primary/Secondary Diagnosis Diagnosis Name Provider Source Sep 20, 2024 08:53 AM PRIMARY Nail dystrophy HARSHA LANDAVERDE Sep 20, 2024 08:53 AM SECONDARY Ingrowing nail HARSHA LANDAVERDE Sep 20, 2024 08:53 AM SECONDARY Pain in left toe(s) HARSHA LANDAVERDE Sep 20, 2024 08:53 AM SECONDARY Pain in right toe(s) HARSHA LANDAVERDE Sep 20, 2024 08:53 AM SECONDARY Type 2 diabetes w diabetic peripheral angiopath w/o gangrene HARSHA LANDAVERDE Plan of Treatment: Future Appointments (+ 6 months) and Future Tests (+/- 45 days) The Plan of Treatment section includes future care activities for the patient from all [place] treatmentfacilities. This section includes future appointments and future orders which are active, pending or scheduled. Future Appointments This section includes appointments that were scheduled to occur 6 months from the date of the Encounter, up to a maximum of 20 appointments. The data comes from all [place] treatment facilities. Appointment Date/Time Appointment Type Appointme nt Facility Name Sep 26, 2024 09:30 AM [facility] Oct 10, 2024 08:30 AM [facility] [place] [facility] Oct 23, 2024 03:00 PM AMBULATORY - NONE [facility] [place] [facility] Oct 23, 2024 03:15 PM AM[facility]ULATORY [facility] MEDICINE [facility] [place] [facility] Oct 23, 2024 03:30 PM [place] [facility] [place] [facility] Nov 30, 2024 09:30 AM [facility] Dec 24, 2024 08:00 AM [facility]ULAT[facility]IC[facility] [place] [facility] Dec 24, 2024 09:30 AM [facility] [place] [facility] January 07, 2025 09:00 AM [place] [facility] [place] [facility] January 24, 2025 08:30 AM AMBULATORY - MEDICINE [facility] Active, Pending, and Scheduled Orders This section includes a listing of several types of active, pending, and scheduled orders, including clinic medications orders, diagnostic test orders, procedure orders and consult orders; where the start date of the order is 45 days before the date of the Encounter or 45 days after the date of theEncounter. The data comes from all [place] treatment facilities. Test Date/Time Test Type Test Details Facility Name Oct 27, 2024 12:00 AM Laboratory - Chemi stry Order [facility] Oct 27, 2024 12:00 AM Laboratory - Chemi stry Order PT & INR (PROTIME) [facility] Oct 27, 2024 12:00 AM Laboratory - Chemi stry Order CBC AND DIFF (AUTO) [facility] (LA[facility] Oct 27, 2024 09:25 AM Consult Order COMMUNITY CARE-INTERVENTIONAL RADIOLOGY Cons [employer] [facility] Lab Results: +/- 30 days of the encounter This section includes the Chemistry and Hematology Lab Results on record with [facility] for the patient. Radiology Reports and Pathology Reports are provided separately, in subsequent sections. Lab Results This section contains the Chemistry/Hematology Results that were resulted 30 days before or 30 daysafter the date of the Encounter. Date/Time Source Result Type Result - Unit Interpretation Reference Range Comment Sep 20, 2024 08:58 AM [facility] HEMOGLOBIN A1C PANEL Specimen Type: BLOOD Comment: [...] Jul 02, 2024 11:06 AM Reporting Lab: [address] [address] Performing Lab: [address] [address] HEMOGLOBIN A1C 6.5 H 4.0-5.6 Sep 20, 2024 08:58 AM [facility] CALCIUM Specimen Type: SERUM No comment entered. Ordering Provider: COMPA ELLIS Report Released Date/Time: Jul 02, 2024 11:06 AM Reporting Lab: [address] [address] Performing Lab: [address] [address] CALCIUM 9.0 mg/dL 8.5-10.2 Sep 20, 2024 08:58 AM [facility] VITAMIN D (25-OH) Specimen Type: SERUM No comment entered. Ordering Provider: COMPA ELLIS Report Released Date/Time: Jul 02, 2024 11:06 AM Reporting [facility] [address] [address] Performing [facility] [address] [address] VITAMIN D (25-OH) 30 ng/mL 20-50 Sep 20, 2024 08:58 AM [facility] BASIC METABOLIC PANEL (non-fasting) Specimen Type: SERUM No comment entered. Ordering Provider: COMPA ELLIS Report Released Date/Time: Jul 02, 2024 11:06 AM Reporting Lab: [facility] [address] [address] Performing Lab: [facility] [address] [address] UREA NITROGEN 9 mg/dL 7-25 GLUCOSE 170 mg/dL H 65-100 SODIUM 138 mmol/L 135-145 POTASSIUM 3.9 mmol/L 3.5-5.0 CHLORIDE 104 mmol/L 100-110 CO2 24 meq/L 20-30 CREATININE, Serum 0.85 mg/dL 0.50-1.40 eGFR(CKD-EPI 2020) >90 mL/min >60 Social History: Smoking Status (Most current) and Tobacco Use (All prior to encounter date) This section includes the most current, and the historical, smoking and tobacco- related health factors from the [place] facility where the Encounter took place. Current Smoking Status This section includes the most current smoking, or tobacco-related health factor, from the [place] facility where the Encounter took place. Date/Time Current Smoking Status Comment Facil [facility] Aug 01, 2023 01:30 PM VA-TOBACCO USER EVERY DAY [place] Tobacco Use History This section includes a history of the smoking, or tobacco-related health factors, that were collected on or before the date of the Encounter. The data comes from the [place] facility where the Encounter took place. Date/Time Smoking Status/Tobacco Use Comment [facility] Aug 01, 2023 01:30 PM VA-TOBACCO USE ADVICE [place] Aug 01, 2023 01:30 PM VA-TOBACCO USE CURB WORKER NO [place] Aug 01, 2023 01:30 PM VA-TOBACCO USE MED NO [place] Aug 01, 2023 01:30 PM VA-TOBACCO USE WI 30 MIN OF WAKE UP [place] Aug 01, 2023 01:30 PM VA-TOBACCO USER EVERY DAY [place] Sep 15, 2021 10:00 AM VA-TOBACCO DOESNT USE WI 30 MIN WAKEUP [place] Sep 15, 2021 10:00 AM VA-TOBACCO USE 30 YEARS OR MORE [place] Sep 15, 2021 10:00 AM VA-TOBACCO USE ADVICE [place] Sep 15, 2021 10:00 AM VA-TOBACCO USE CURB WORKER NO [place] Sep 15, 2021 10:00 AM VA-TOBACCO USE MED [facility] Sep 15, 2021 10:00 AM VA-TOBACCO USER EVERY DAY [place] May 02, 2019 03:54 PM VA-TOBACCO DOESNT USE WI 30 MIN WAKEUP [place] May 02, 2019 03:54 PM VA-TOBACCO USE 30 YEARS OR MORE [place] May 02, 2019 03:54 PM VA-TOBACCO USE ADVICE [place] May 02, 2019 03:54 PM VA-TOBACCO USE CURB WORKER NO [place] May 02, 2019 03:54 PM VA-TOBACCO USE MED NO [place] May 02, 2019 03:54 PM VA-TOBACCO USER SOME DAYS [place] January 25, 2018 11:23 AM QUIT TOBACCO USE IN PAST Y EAR QUIT 08/19/17 [place] Apr 04, 2017 10:16 AM CURRENT SMOKER 1.5 PACK A DAY [place] Apr 04, 2017 10:16 AM V1-PT DECLINES REF TO TOBACCO CESS PRGM [place] Apr 04, 2017 10:16 AM V1-PT DECLINES TOB ACCO CESSATION MEDS [place] Apr 04, 2017 10:16 AM V1-PT READY TO QUIT TOBACCO USE [place] Aug 13, 2016 01:21 PM CURRENT SMOKER [facility] Aug 13, 2016 01:21 PM V1-PT NOT INTEREST ED IN QUIT TOBACCO USE [place] Encounter Notes: All associated encounter notes This section contains the clinical notes associated to the Encounter. Date/Time Encounter Note(s) Provider Source Sep 20, 2024 07:32 AM PODIATRY NOTE: LOCAL TITLE: PODIATRY NOTE STANDARD TITLE: PODIATRY NOTE DATE OF NOTE: SEP 20, 2024@07:32 ENTRY DATE: SEP 20, 2024@07:32:55 AUTHOR: HARSHA LANDAVERDE EXP COSIGNER: URGENCY: STATUS: COMPLETED NOTE: HAS RECEIVED BOTH COVID VACCINE DOSES + BOOSTER AT [facility] *LAST SEEN FOR TREATMENT: 05/03/2024 S: Pt. is a 69 yo alert [facility] who is seen for continued podiatric care of a thickened, severely incurvated, yellow-brown discolored nail-LEFT HALLUX noting pain on palpation. There has been pain due to the thickness of nail and delay in treatment due to COVID-19 situation AND shoe gear is contributing to pain which is level 2-3/10 prior to treatment and 0/10 after. There is no history of trauma. There have been recent changes in the patient's medical condition. Pt. is at risk of injury with self-care due to the presence of TYPE II DM. *NOTE: CURRENTLY ON COUMADIN DENIES ANY RECENT CHANGES IN MEDS UPON QUESTIONING TODAY-SEE RECONCILIATION PERFORMED THIS DATE BELOW TOBACCO USE: 1 PACK WEEKLY O: Exam reveals skin color to be WNL, temp, is diminished, text has areas of dryness plantar aspect of feet and heels bilat. There is absence of hair noted. Nails are thickened, yellow-brown discolored and display crumbling, flakiness and sub-ungual debris with rubor in the medial & lateral nail grooves and pain on palpation. Affected nails are as follows: LT HALLUX AND LESSER DIGIT NAILS ARE ELONGATED AND INCURVATED AND REQUIRE ATTENTION AT THIS TIME WELL. There are no hyperkeratosis noted at this time. There are no other gross LE changes in status noted this date. [facility] Active problems - Computerized Problem List is the source for the following: *NOTE: REVIEWED ABOVE NOTING NO CHANGES SINCE PREVIOUS VISIT(type ii dm) *PLEASE SEE PROBLEM LIST TEMPLATE FOR COMPLETE LIST NEEDED. *NOTE: A1c= 6.3 (LAST TAKEN: 05/2024) SKH=434ED -meter-AM RISK=2 HEIGHT: 69 in [175.3 cm] (04/04/2017 13:40) WEIGHT: 186.8 lb [84.9 kg] (04/04/2017 13:40) VASCULAR: DP & PT pulses to be absent non-palpable bilateral. CFT >3 sec x 10. There is no edema and there are no varices superficial noted. seen at [facility] and they noted severe pvd in feet and he was advised to keep a watch on feet as well NEUROLOGICAL: Exam reveals S/D, vibratory, light touch & proprioception sensations to be equal & symmetrical bilaterally & diminished for an individual of this age and present physical-medical status. Protective sensation utilizing a [place] lOg monofilament is 10/10 bilateral. MUSCULOSKELETAL: Exam reveals muscle strength and tone to be equal & symmetrical bilaterally & WNL for an individual of this age and present physical-medical condition. There is pain free ROM at all joints distal to and including the ankle. 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 Class findings have been met in a high risk individual and the systemic condition has resulted in circulatory impairment & areas of desensitization. P: Treatment consists of debridement-reduction of LEFT hallux nail via manual and electric means with excision of offending nail borders and thinning of the nail plate to the point of immanent bleeding AND TRIMMING REDUCTION OF ALL OTHER NAILS(1-2-3-4-5 RT & 2-3-4-5 LT) VIA MANUAL AND ELECTRIC MEANS WELL. All care rendered without complications & pt. progressing well after podiatric care this date & should be scheduled for periodic care in an attempt to prevent future complications due to the underlying medical conditions. Tx. By a non- professional could be extremely hazardous to the patient's well-being due to the underlying medical condition. RTC 24 WEEKS nail care. *REVIEWED HOME FOOT CARE FEET ARE IN EXCELLENT CONDITION AND I PROVIDED HIM WITH WRITTEN RECOMMENDATIONS FOR FOOT CARE TO BE REVIEWED AT HOME (FOOT CARE TIPS). *DISCUSSED NEW PROTOCOLS AND CALLED [facility] TODAY FOR RESCHEDULING I DISCUSSED THE FINDINGS & PLAN WITH PATIENT (UNCHANGED SINCE PREVIOUS VISIT) & PATIENT AGREES AND UNDERSTANDS PLAN & RECEIVED MIRROR DISCUSSED A VARIETY OF SOCIAL ISSUES WELL THE FRIGID WEATHER THAT WE HOPE IS ENDING TODAY Medication Reconciliation: PERFORMED TODAY - SEE BELOW. Outpatient: Has the patient been taking medications as documented in the EMLR? YES: The patient has been taking medications as documented in the EMLR. Essential Medication List for Review used to complete this medication reconciliation. INCLUDED IN THIS LIST: Alphabetical list of active outpatient prescriptions dispensed from this [facility] (local) and dispensed from another [place] or [place] facility (remote) as well as [...] Remote Allergy/ADR Data available for this patient [facility]MIN Med Recon [facility] (Tool #[facility]) INCLUDED IN THIS LIST: Alphabetical list of active outpatient prescriptions dispensed from this [place] (local) and dispensed from another [place] or [place] facility (remote) as well as [...] the patient into personal health records (i.e. [employer]) are NOT included in this list. Non-VA medications documented outside this [place], remote inpatient orders (regardless of status) and [...] DAILY FOR TYPE 2 DIABETES MELLITUS Rx# [id number] Last Released: 07/04/24 Qty Supply: Rx Expiration Date: 07/03/25 Refills Remainin Indication: FOR TYPE 2 DIABETES MELLITUS Non-VA FAMOTIDINE 10MG TAB TAKE ONE TABLET BY MOUTH AT BEDTIME Medication prescribed by Non-VA provider. OUTPT INSULIN,ASPART(EQV-NOVLG)100UN/ML FLXPEN (Status = Active) INJECT DIRECTED SUBCUTANEOUSLY THREE TIMES A DAY 3 UNITS AT BREAKFAST, 1 UNIT PER 8 GM CARB LUNCH, AND 1 UNIT PER 7 GM CARB DINNER PLEASE HOLD UNTIL REQUESTED Rx# [id number] Last Released: 08/02/24 QtyDays Supply: Rx Expiration Date: 05/04/25 Refills Remainin Indication: FOR DIABETES OUTPT INSULIN,GLARGINE-YFGN 100UNIT/ML PEN 3ML (Status = Active) INJECT 20 UNITS SUBCUTANEOUSLY EVERY MORNING Rx# [id number] Last Released: 08/06/24 Qty/Days Supply: Rx Expiration Date: 05/04/25 Refills Remainin Indication: FOR DIABETES OUTPT LEVOTHYROXINE NA (SYNTHROID) 175MCG TAB (Status = Discontinued) TAKE ONE TABLET BY MOUTH EVERY MORNING 30 MINUTES BEFORE BREAKFAST FOR THYROID - TAKE ON AN EMPTY STOMACH WITH A FULL GLASS OF WATER Rx# [id number] Last Released: 06/20/24 Qty/Days Supply: Rx Expiration Date: 03/17/25 Refills Remainin Indication: FOR THYROID OUTPT LEVOTHYROXINE NA (SYNTHROID) 175MCG TAB (Status = Active) TAKE ONE TABLET BY MOUTH EVERY MORNING 30 MINUTES BEFORE BREAKFAST FOR THYROID - TAKE ON AN EMPTY STOMACH WITH A FULL GLASS OF WATER Rx# [id number] Last Released: 09/01/24 Qty/Days Supply: Rx Expiration Date: 07/03/25 Refills Remainin Indication: FOR THYROID OUTPT LIDOCAINE 5% OINT (Status = Discontinued) APPLY LIBERAL AMOUNT TOPICALLY TWICE DAILY NERVE PAIN Rx# [id number] Last Released: 01/09/24 Qty/Days Supply: Rx Expiration Date: 01/05/25 Refills Remainin Indication: NERVE PAIN OUTPT LIDOCAINE 5% PATCH (Status = Active) APPLY 1 PATCH TOPICALLY ONCE DAILY FOR NERVE PAIN (LEAVE PATCH ON FOR 12 HOURS, THEN REMOVE PATCH) Rx# [id number] Last Released: 06/29/24 Qty/Days Supply: Rx Expiration [...] THREE TIMES DAILY NEEDED SENSOR FAILURE Rx# [id number] Last Released: 05/10/24 Qty/Days Supply: 100/30 Rx Expiration Date: 05/04/25 Refills Remainin Indication: SENSOR FAILURE OUTPT DEPEND UNDERWEAR,MAXIMUM,MEN SM/MED (Status = ) USE 1 BRIEF DIRECTED ONCE DAILY NEEDED Rx# [id number] Last Released: 04/10/24 Qty/Days Supply: 76 Rx Expiration Date: 08/01/24 Refills Remainin Indication: INCONTINENCE OUTPT GLUCOSE SENSOR FREESTYLE REYES 3 (Status = Discontinued) USE 1 SENSOR DIRECTED EVERY 14 DAYS Rx# [id number] Last Released: 06/21/24 Qty/Days Supply: 10/26 Rx Expiration Date: 04/28/25 Refills Remainin OUTPT GLUCOSE SENSOR FREESTYLE REYES 3 (Status = Active) USE 1 SENSOR DIRECTED EVERY 14 DAYS Rx# [id number] Last Released: 09/03/24 Qty/Days Supply: 10/26 Rx Expiration Date: 07/03/25 Refills Remainin OUTPT NEEDLE,PEN 32G,4MM (Status = ) USE 1 NEEDLE SUBCUTANEOUSLY FOUR TIMES A DAY FOR USE WITH PEN DEVICE Rx# [id number] Last Released: 05/03/24 Qty/Days Supply: 400 Rx Expiration Date: 07/26/24 Refills Remainin OUTPT TRANSPARENT DRESSING 2 3/8IN X 2 3/4IN (Status = Discontinued) APPLY 1 DRESSING TOPICALLY [id number] Rx# [id number] Last Released: 12/13/23 Qty/Days Supply: Rx Expiration Date: 12/13/24 Refills Remainin OUTPT TRANSPARENT DRESSING 2 3/8IN X 2 3/4IN (Status = Discontinued) APPLY 1 DRESSING TOPICALLY [id number] Rx# [id number] Last Released: Qty/Days Supply: Rx Expiration Date: 07/03/25 Refills Remainin OUTPT TRANSPARENT DRESSING 2 3/8IN X 2 3/4IN (Status = Active) APPLY 1 DRESSING TOPICALLY EVERY 14 DAYS Rx# [id number] Last Released: 07/05/24 Qty/Days Supply: Rx Expiration Date: 07/04/25 Refills Remainin /samara/ HARSHA LANDAVERDE DPM HYDROPONICS WORKER Signed: 09/20/2024 08:54 HARSHA LANDAVERDE
--- OUTSIDE RECORDS SUMMARY | 2024-10-31 08:09 | XMS_ITS | Encounter Summary ---
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 Name Role Phone MARICEL ELIAS Primary [...] SUPPLEMEN YAMILKA MEDEX 2 Apr 29, 2020 [id number] ALICE EARL PATIENT BCBS ID MEDICARE SUPPLEMEN YAMILKA MEDEX 2 Apr 29, 2020 [id number] ALICE EARL PATIENT BCBS [facility] CE ORGANIZ [facility] SHARE ACTIV E Feb 27, 2012 [id number] ALICE EARL PATIENT [employer] ([id number]) PRESCRIPT ION L4TA* Feb 27, 2012 [id number] ALICE EARL PATIENT [employer] ([id number]) PRESCRIPT ION Feb 27, 2012 [id number] ALICE EARL PATIENT MEDICARE (WNR) MEDICARE (M) PART A Apr 29, 2020 PART A [id number] ALICE EARL PATIENT MEDICARE (WNR) MEDICARE (M) PART B Apr 29, 2020 PART B [id number] [id number] ALICE EARL PATIENT MEDICARE (WNR) MEDICARE (M) PART A Apr 29, 2020 PART A [id number] ALICE EARL PATIENT MEDICARE (WNR) MEDICARE (M) PART B Apr 29, 2020 PART B [id number] ALICE EARL PATIENT Selected Encounter This section includes the information on record at [place] for the Encounter. 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 Plan of Treatment: Future Appointments (+ 6 months) and Future Tests (+/- 45 days) The Plan of Treatment section includes future care activities for the patient from all [place] treatmentfacilities. This section includes future appointments and future orders which are active, pending or scheduled. Future Appointments This section includes appointments that were scheduled to occur 6 months from the date of the Encounter, up to a maximum of 20 appointments. The data comes from all [place] treatment facilities. Appointment Date/Time Appointment Type Appointme nt Facility Name Jul 04, 2024 09:00 AM AMBULATORY - MEDICINE [place] [facility] [place] [facility] Sep 06, 2024 03:00 PM AMBULATORY - MEDICINE [facility] Sep 20, 2024 08:30 AM AMBULATORY - MEDICINE [facility] Sep 26, 2024 09:30 AM AMBULATORY - MEDICINE [place] [facility] [place] [facility] Oct 10, 2024 08:30 AM AMBULATORY - MEDICINE [facility] [place] [facility] Oct 23, 2024 03:00 PM AMBULATORY - NONE [facility] [place] [facility] Oct 23, 2024 03:15 PM AMBULATORY - MEDICINE [facility] [place] [facility] Oct 23, 2024 03:30 PM AMBULATORY - MEDICINE [facility] [place] [facility] Nov 30, 2024 09:30 AM AMBULATORY - NONE [facility] [place] [facility] Dec 24, 2024 08:00 AM AMBULATORY - MEDICINE [facility] [place] [facility] Dec 24, 2024 09:30 AM [facility] Active, Pending, and Scheduled Orders This section includes a listing of several types of active, pending, and scheduled orders, including clinic medications orders, diagnostic test orders, procedure orders and consult orders; where the start date of the order is 45 days before the date of the Encounter or 45 days after the date of theEncounter. The data comes from all [place] treatment facilities. Test Date/Time Test Type Test Details Facility Name Jun 27, 2024 12:00 AM Laboratory - Chemistry Order PT & INR (PROTIME) BLOOD (BLUE-PLASMA) [facility] Jun 27, 2024 12:00 AM Laboratory - Chemistry Order HEMOGLOBIN A1C PANEL BLOOD (LAV-BLOOD) [facility] Jun 27, 2024 12:00 AM Laboratory - Chemistry Order PSA BLOOD (SST-SERUM) [facility] Jun 27, 2024 12:00 AM Laboratory - Chemistry Order TSH BLOOD (SST-SERUM) [facility] Jun 27, 2024 12:00 AM Laboratory - Chemistry Order CBC BLOOD (LAV-BLOOD) [facility] Jun 27, 2024 12:00 AM Laboratory - Chemistry Order BASIC METABOLIC PANEL (non-fasting) BLOOD (SST-SERUM) [facility] Jul 02, 2024 12:00 AM Laboratory - Chemistry Order TSH BLOOD (SST-SERUM) [facility] Jul 02, 2024 12:00 AM Laboratory - Chemistry Order CALCIUM, 24HR PANEL 24 HR URINE SP [facility] Jul 02, 2024 12:00 AM Laboratory - Chemistry Order CALCIUM BLOOD (SST-SERUM) SP [facility] Lab Results: +/- 30 days of the encounter This section includes the Chemistry and Hematology Lab Results on record with [place] for the patient. Radiology Reports and Pathology Reports are provided separately, in subsequent sections. Lab Results This section contains the Chemistry/Hematology Results that were resulted 30 days before or 30 daysafter the date of the Encounter. Date/Time Source Result Type Result - Unit Interpretation Reference Range Comment Jun 27, 2024 11:33 AM [facility] THYROID T4 FREE(FT4) (WROX) Specimen Type: SERUM No comment entered. Ordering Provider: COMPA ELLIS Report Released Date/Time: Apr 20, 2024 06:27 PM Reporting Lab: [address] [address] Performing Lab: [facility] [address] [facility] [address] THYROID T4 FREE(FT4) (WROX) 1.55 ng/dL 0.6-1.6 Jun 27, 2024 11:33 AM [facility] CALCIUM Specimen Type: SERUM No comment entered. Ordering Provider: COMPA ELLIS Report Released Date/Time: Apr 20, 2024 06:27 PM Reporting Lab: [address] [address] Performing Lab: [address] [address] CALCIUM 9.4 mg/dL 8.5-10.2 Jun 27, 2024 11:33 AM [facility] VITAMIN D (25-OH) Specimen Type: SERUM No comment entered. Ordering Provider: COMPA ELLIS Report Released Date/Time: Apr 20, 2024 06:27 PM Reporting Lab: [address] [address] Performing Lab: [address] [place] [address] VITAMIN D (25-OH) 37 ng/mL 20-50 Jun 27, 2024 11:33 AM [facility] PTH INTACT Specimen Type: SERUM No comment entered. Ordering Provider: COMPA ELLIS Report Released Date/Time: Apr 20, 2024 06:27 PM Reporting Lab: [facility] [address] [facility] [address] Performing Lab: [facility] [address] [facility] [address] PTH INTACT 62.8 pg/mL 10-65 Jun 25, 2024 10:14 AM [facility] LIPID PANEL, NON FASTING Specimen Type: SERUM No comment entered. Ordering Provider: OSIIRS ELIAS AM Report Released Date/Time: Jun 14, 2024 02:11 PM Reporting Lab: [address] [address] Performing Lab: [address] [address] CHOLESTEROL 95 mg/dL TRIGLYCERIDE 91 mg/dL 0-150 LDL calculated 30 mg/dL 0-129 CHOL/HDL 2.0 HDL CHOLESTEROL 47 mg/dL 40-60 Jun 25, 2024 10:14 AM [facility] HEMOGLOBIN A1C PANEL Specimen Type: BLOOD Comment: Values obtained from A1C measurements can vary. For atypical A1C assays, a reported value of 7.0 could actually be between 6.72 and 7.28 if measured by a reference method. A reported value of 9.0 could actually be between 8.73 and 9.27. Ref: http://www.ngs p.org/CAPdata. asp Ordering Provider: OSIRIS ELIAS AM Report Released Date/Time: Jun 14, 2024 02:11 PM Reporting Lab: [address] [address] Performing Lab: [address] [address] HEMOGLOBIN A1C 6.3 H 4.0-5.6 Jun 25, 2024 10:14 AM [facility] CBC Specimen Type: BLOOD No comment entered. Ordering Provider: OSIRIS ELIAS AM Report Released Date/Time: Jun 14, 2024 02:11 PM Reporting Lab: [facility] [address] [facility] [address] Performing Lab: [address] [address] WBC 6.96 10*3/uL 4.50-11.00 RBC 4.67 10*6/uL 4.23-5.66 HGB 15.9 g/dL 12.8-17 HCT 46.1 39.2-50.4 MCV 98.7 fL 82-99 MCHC 34.5 g/dL 30.8-35.1 PLT 148 10*3/uL 140-360 RDW-CV 13.0 12.0-16.0 MCH 34.0 pg H 26.2-32.6 Jun 25, 2024 10:14 AM [facility] LIVER FUNCTION Specimen Type: SERUM No comment entered. Ordering Provider: OSIRIS ELIAS AM Report Released Date/Time: Jun 14, 2024 02:11 PM Reporting Lab: [address] [address] Performing Lab: [address] [address] PROTEIN,TOTAL 7.0 g/dL 6.0-8.3 ALBUMIN 4.0 g/dL 3.5-5.0 ALKALINE PHOSPHATASE 88 U/L 40-150 AST 14 U/L 5-34 ALT 17 U/L BILIRUBIN, TOTAL 0.7 mg/dL 0.2-1.2 Jun 25, 2024 10:14 AM [facility] BASIC METABOLIC PANEL (non-fasting) Specimen Type: SERUM No comment entered. Ordering Provider: OSIRIS ELIAS AM Report Released Date/Time: Jun 14, 2024 02:11 PM Reporting Lab: [address] [address] Performing Lab: [address] [place] [address] UREA NITROGEN 9 mg/dL 7-25 GLUCOSE 166 mg/dL H 65-100 SODIUM 137 mmol/L 135-145 POTASSIUM 3.8 mmol/L 3.5-5.0 CHLORIDE 103 mmol/L 100-110 CO2 23 meq/L 20-30 CREATININE, Serum 1.00 mg/dL 0.50-1.40 eGFR(CKD-EPI 2020) 81 mL/min >60 Jun 25, 2024 10:14 AM [facility] MICROALBUMIN CREATININE RATIO PANEL Specimen Type: URINE No comment entered. Ordering Provider: OSIRIS ELIAS AM Report Released Date/Time: Jun 14, 2024 02:11 PM Reporting Lab: [address] [address] Performing Lab: [address] [address] MICROALBUMIN/C REATININE RATIO 18.0 mg/g 0-29.9 MICROALBUMIN,Q UANTITATIVE 1.3 mg/dL RR UNAVAIL CREATININE URINE 72.19 mg/dL Jun 25, 2024 10:14 AM [facility] PSA Specimen Type: SERUM No comment entered. Ordering Provider: OSIRIS ELIAS AM Report Released Date/Time: Jun 14, 2024 02:11 PM Reporting Lab: [address] [address] Performing Lab: [address] [address] PSA < 0.10 ng/mL 0.00-4.00 Jun 25, 2024 10:14 AM [facility] TSH Specimen Type: SERUM No comment entered. Ordering Provider: OSIRIS ELIAS AM Report Released Date/Time: Jun 14, 2024 02:11 PM Reporting Lab: [address] [address] Performing Lab: [address] [address] TSH 3.53 u[IU]/mL 0.35-5.00 Jun 25, 2024 10:[address] [facility] PT & INR (PROTIME) Specimen Type: PLASMA No comment entered. Ordering Provider: OSIRIS ELIAS AM Report Released Date/Time: Jun 14, 2024 02:11 PM Reporting Lab: [facility] [address] [facility] [address] Performing Lab: [facility] [address] [facility] [address] INR 2.3 PROTIME 25.5 s H 10.0-13.1 Vital Signs: All taken on the encounter date This section contains inpatient and outpatient Vital Signs collected on the date of the Encounter. Date/Time Temperature Pulse Blood Pressure Respiratory Rate SP02 Pain Height Weight Body Mass Index Source Jul 02, 2024 10:43 AM 98.2 74 118/74 16 99 10 173 26 [facility] Social History: Smoking Status (Most current) and Tobacco Use (All prior to encounter date) This section includes the most current, and the historical, smoking and tobacco- related health factors from the [place] facility where the Encounter took place. Current Smoking Status This section includes the most current smoking, or tobacco-related health factor, from the [place] facility where the Encounter took place. Date/Time Current Smoking Status Comment Guerrero ity Jun 27, 2024 11:00 AM VA-TOBACCO USE MICHELLE RY DAY CIGARETTES [facility] Tobacco Use History This section includes a history of the smoking, or tobacco-related health factors, that were collected on or before the date of the Encounter. The data comes from the [place] facility where the Encounter took place. 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 Jun 27, 2024 11:00 AM VA-TOBACCO USE MICHELLE RY DAY CIGARETTES 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 /samara/ COMPA ELLIS MD STAFF PHYSICIAN Signed: 07/02/2024 11:59 COMPA ELLIS [facility]
--- OUTSIDE RECORDS SUMMARY | 2024-10-31 08:09 | XMS_ITS | Encounter Summary ---
Author Name [facility] [place] [facility] [place] Address [address] [place] [id number] Care Team Providers Care Rock Climbing Team Member Name Role Phone MARICEL ELIAS Primary Care Provider [facility] Insurance Providers: All historical and current Section [...] SUPPLEMEN YAMILKA MEDEX 2 Apr 29, 2020 [id number] ALICE RUSSO BCBS OR MEDICARE SUPPLEMEN YAMILKA MEDEX 2 Apr 29, 2020 [id number] ALICE RUSSO BCBS [facility]GANIZ [facility] SHARE ACTIV E Feb 27, 2012 [id number] ALICE RUSSO PATIENT [employer] ([id number]) PRESCRIPT ION L4TA* Feb 27, 2012 [id number] ALICE RUSSO PATIENT [employer] ([id number]) PRESCRIPT ION Feb 27, 2012 [id number] [phone] ALICE RUSSO PATIENT MEDICARE (WNR) MEDICARE (M) PART A Apr 29, 2020 PART A [id number] ALICE RUSSO PATIENT MEDICARE (WNR) MEDICARE (M) PART B Apr 29, 2020 PART B [id number] [phone] ALICE RUSSO PATIENT MEDICARE (WNR) MEDICARE (M) PART A Apr 29, 2020 PART A [id number] ALICE RUSSO PATIENT MEDICARE (WNR) MEDICARE (M) PART B Apr 29, 2020 PART B [id number] ALICE RUSSO PATIENT Selected Encounter This section includes the information on [place] at [place] for the Encounter. Date/Time Encounter Type Encounter Description Reason Provider Source May 03, 2024 08:30 AM OFFICE O/P EST LOW 20 MIN PODIATRY ICD-10-CM L60.3 Nail dystrophy HARSHA LANDAVERDE [facility] Encounter Template Text not used by [place] Assessments - Encounter Diagnoses This section includes the primary and secondary diagnoses documented for the Encounter. Date/Time Primary/Secondary Diagnosis Diagnosis Name Provider Source May 22, 2024 11:58 AM PRIMARY Nail dystrophy HARSHA LANDAVERDE [facility] May 22, 2024 11:58 AM SECONDARY Ingrowing nail HARSHA LANDAVERDE [facility] May 22, 2024 11:58 AM SECONDARY Type 2 diabetes w diabetic peripheral angiopath w/o gangrene HARSHA LANDAVERDE FERNANDO Plan of Treatment: Future Appointments (+ 6 months) and Future Tests (+/- 45 days) The Plan of Treatment section includes future care activities for the patient from all [place] treatmentfacilities. This section includes future appointments and future orders which are active, pending or scheduled. Future Appointments This section includes appointments that were scheduled to occur 6 months from the date of the Encounter, up to a maximum of 20 appointments. The data comes from all [place] treatment facilities. Appointment Date/Time Appointment Type Appointme nt Facility Name Jun 27, 2024 11:00 AM AM[place] [facility] Jul 02, 2024 10:30 AM AMBULATORY - MEDICINE [facility] Jul 04, 2024 09:00 AM AM[place]UL[place] [facility] Sep 06, 2024 03:00 PM AMBULATORY - MEDICINE [facility] [place] Sep 20, 2024 08:30 AM AMBULATORY - MEDICINE [facility] [place] Sep 26, 2024 09:30 AM [facility] Oct 10, 2024 08:30 AM AM[facility]UL[facility]ICINE [facility] Oct 23, 2024 03:00 PM AMBULATORY - NONE [facility] Oct 23, 2024 03:15 PM AMBULATORY [facility] MEDICINE [facility] Oct 23, 2024 03:30 PM AMBULATORY - MEDICINE [facility] Social History: Smoking Status (Most current) and Tobacco Use (All prior to encounter date) This section includes the most current, and the historical, smoking and tobacco- related health factors from the [place] facility where the Encounter took place. Current Smoking Status This section includes the most current smoking, or tobacco-related health factor, from the [place] facility where the Encounter took place. Date/Time Current Smoking Status Comment Facil [facility] Aug 01, 2023 01:30 PM VA-TOBACCO USER EVERY DAY [facility] Tobacco Use History This section includes a history of the smoking, or tobacco-related health factors, that were collected on or before the date of the Encounter. The data comes from the [place] facility where the Encounter took place. Date/Time Smoking Status/Tobacco Use Comment F [facility] Aug 01, 2023 01:30 PM VA-TOBACCO USE ADVICE [facility] Aug 01, 2023 01:30 PM VA-TOBACCO USE CENTRIFUGAL SEPARATOR NO [facility] Aug 01, 2023 01:30 PM VA-TOBACCO USE MED NO [facility] Aug 01, 2023 01:30 PM VA-TOBACCO USE WI 30 MIN OF WAKE UP [facility] Aug 01, 2023 01:30 PM VA-TOBACCO USER EVERY DAY [facility] Sep 15, 2021 10:00 AM VA-TOBACCO DOESNT USE WI 30 MIN WAKEUP [facility] Sep 15, 2021 10:00 AM VA-TOBACCO USE 30 YEARS OR MORE [facility] Sep 15, 2021 10:00 AM VA-TOBACCO USE ADVICE [facility] Sep 15, 2021 10:00 AM VA-TOBACCO USE CENTRIFUGAL SEPARATOR NO [facility] Sep 15, 2021 10:00 AM VA-TOBACCO USE MED NO [facility] Sep 15, 2021 10:00 AM VA-TOBACCO USER EVERY DAY [facility] May 02, 2019 03:54 PM VA-TOBACCO DOESNT USE WI 30 MIN WAKEUP [facility] May 02, 2019 03:54 PM VA-TOBACCO USE 30 YEARS OR MORE [facility] May 02, 2019 03:54 PM VA-TOBACCO USE ADVICE [facility] May 02, 2019 03:54 PM VA-TOBACCO USE CENTRIFUGAL SEPARATOR NO [facility] May 02, 2019 03:54 PM VA-TOBACCO USE MED NO [facility] May 02, 2019 03:54 PM VA-TOBACCO USER SOME DAYS [facility] January 25, 2018 11:23 AM QUIT TOBACCO USE IN PAST Y EAR QUIT 08/19/17 [facility] Apr 04, 2017 10:16 AM CURRENT SMOKER 1.5 PACK A DAY [facility] Apr 04, 2017 10:16 AM V1-PT DECLINES REF TO TOBACCO CESS PRGM [facility] Apr 04, 2017 10:16 AM V1-PT DECLINES TOB ACCO CESSATION MEDS [facility] Apr 04, 2017 10:16 AM V1-PT READY TO QUIT TOBACCO USE [facility] Aug 13, 2016 01:21 PM CURRENT SMOKER [facility] Aug 13, 2016 01:21 PM V1-PT NOT INTEREST ED IN QUIT TOBACCO USE [facility] Encounter Notes: All associated encounter notes This section contains the clinical notes associated to the Encounter. Date/Time Encounter Note(s) Provider Source May 30, 2024 08:58 AM LETTERS: LOCAL TITLE: PATIENT LETTER (B) STANDARD TITLE: LETTERS DATE OF NOTE: MAY 30, 2024@08:58 ENTRY DATE: MAY 30, 2024@08:58:13 AUTHOR: GILMA ZHANG EXP COSIGNER: URGENCY: STATUS: COMPLETED [facility] [address] [place] [address] [phone] * ALICE RUSSO [address] [facility] [address] Date: MAY 30, 2024 Dear : This is a reminder letter that your SHOES are ready for pick at the [facility] located at [address] [place] [address]. You may bean picker your shoes and or orthotics at your convenience any day, Tuesday through Tuesday between 8:30am and 3:30pm. You do not need an appointment. BUT WE DO REQUEST THAT YOU CALL BEFORE ARRIVING TO MAKE SURE THE PODIATRY HEALTH COMMISSIONING AGENT IS AVAILABLE ON THAT DAY. Call [phone] for Gilma if you have any questions. We hope to see you soon, Sincerely, Office Staff for:ERIC MCINTOSH Care Provider Upcoming Appointments: 07/02/2024 10:30 NHM/ENDOCRINE 08/07/2024 10:00 CWM/NO/DIABETES EDU1 09/20/2024 08:30 CWM/SO/PODIATRY/AKHIL 10/23/2024 15:30 NHM/OPTOMETRY/GILMA LUTHER MARCY May 03, 2024 07:41 AM PODIATRY NOTE: LOCAL TITLE: PODIATRY NOTE STANDARD TITLE: PODIATRY NOTE DATE OF NOTE: MAY 03, 2024@07:41 ENTRY DATE: MAY 03, 2024@07:41:32 AUTHOR: HARSHA LANDAVERDE EXP COSIGNER: URGENCY: STATUS: COMPLETED NOTE: HAS RECEIVED BOTH COVID VACCINE DOSES + BOOSTER AT [facility] *LAST SEEN FOR TREATMENT: 09/22/2023 S: Pt. is a 68 yo alert WDWN CAUC MALE who is seen for continued podiatric [...] LE changes in status noted this date. [facility] Active problems - Computerized Problem List is the source for the following: *NOTE: REVIEWED ABOVE NOTING NO CHANGES SINCE PREVIOUS VISIT(type ii dm) *PLEASE SEE PROBLEM LIST TEMPLATE FOR COMPLETE LIST NEEDED. *NOTE: A1c= 7.3 (LAST TAKEN: 02/2024) NUH=[id number] -meter-AM RISK=2 HEIGHT: 69 in [175.3 cm] (04/04/2017 13:40) WEIGHT: 186.8 lb [84.9 kg] (04/04/2017 13:40) VASCULAR: DP & PT pulses to be absent non-palpable bilateral. CFT >3 sec x 10. There is no edema and there are no varices superficial noted. seen at [facility] and they noted severe pvd in feet and he was advised to keep a watch on feet as well NEUROLOGICAL: Exam reveals S/D, vibratory, light touch & proprioception sensations to be equal & symmetrical bilaterally & diminished for an individual of this age and present physical-medical status. Protective sensation utilizing a Hawkins-Wilma lOg monofilament is 10/10 bilateral. MUSCULOSKELETAL: Exam [...] AGREES AND UNDERSTANDS PLAN & RECEIVED MIRROR Medication Reconciliation: PERFORMED TODAY - SEE BELOW. Outpatient: Has the patient been taking medications as documented in the EMLR? YES: The patient has been taking medications as documented in the EMLR. Essential Medication List for Review used to complete this medication reconciliation. INCLUDED IN THIS LIST: Alphabetical list of active outpatient prescriptions dispensed from this [facility] (local) and dispensed from another [place] or [facility] facility (remote) as well as [...] Remote Allergy/ADR Data available for this patient [place] [facility] INCLUDED IN THIS LIST: Alphabetical list of active outpatient prescriptions dispensed from this [place] (local) and dispensed from another [place] or [facility] facility (remote) as well as inpatient orders (local pending and active), local clinic medications, locally documented non-VA medications, and local prescriptions that have or been discontinued in the past 90 days. Non-VA Meds Last Documented On: Apr 02, 2024 NOTE The display of VA prescriptions dispensed from another VA or DoD facility (remote) is limited to active outpatient prescription entries matched to National Drug File at the originating site and may not include some items such as investigational drugs, compounds, etc. NOT INCLUDED IN THIS LIST: Medications self-entered by the patient into personal health records (i.e. [employer]) are NOT included in this list. Non-VA medications documented outside this [place], remote inpatient orders (regardless of status) and [...] DAY NEEDED Indication: meal Non-VA DILTIAZEM (EQV-TIAZAC) 360MG 24HR CAP TAKE 1 CAPSULE BY MOUTH ONCE DAILY Non-VA medication not recommended by VA provider. Medication prescribed by Non-VA provider. OUTPT EMPAGLIFLOZIN 25MG TAB (Status = Active) TAKE ONE TABLET BY MOUTH ONCE DAILY FOR DIABETES Rx# [id number] Last Released: 03/19/24 Qty/Days Supply: Rx Expiration Date: 05/12/24 Refills Remainin Non-VA FAMOTIDINE 10MG TAB TAKE ONE TABLET BY MOUTH AT BEDTIME Medication prescribed by Non-VA provider. OUTPT INSULIN,ASPART(EQV-NOVLG)100UN/ML FLXPEN (Status = Active) INJECT INSULIN SUBCUTANEOUSLY THREE TIMES A DAY FOR DIABETES FOLLOWS: 1 UNIT PER 7 GM OF CARBS AT BREAKFAST, 1 UNIT PER 6 GM OF CARBS AT LUNCH, 1 UNIT PER 8 GM OF CARBS AT DINNER. Rx# [id number] Last Released: 12/06/23 Qty/Days Supply: Rx Expiration Date: 06/08/24 Refills Remainin Indication: FOR DIABETES OUTPT INSULIN,GLARGINE-YFGN 100UNIT/ML PEN 3ML (Status = Active) INJECT 21 UNITS SUBCUTANEOUSLY EVERY MORNING Rx# [id number] Last Released: 01/09/24 Qty/Days Supply: Rx Expiration Date: 01/05/25 Refills Remainin Indication: FOR DIABETES OUTPT LEVOTHYROXINE NA (SYNTHROID) 175MCG TAB (Status = Discontinued) TAKE ONE TABLET BY MOUTH EVERY MORNING 30 MINUTES BEFORE BREAKFAST FOR THYROID FOR THYROID - TAKE ON AN EMPTY STOMACH WITH A FULL GLASS OF WATER Rx# [id number] Last Released: 11/30/23 Qty/Days Supply: Rx Expiration Date: 07/26/24 Refills Remainin Indication: FOR THYROID OUTPT LEVOTHYROXINE NA (SYNTHROID) 175MCG TAB (Status = Active) TAKE ONE TABLET BY MOUTH EVERY MORNING 30 MINUTES BEFORE BREAKFAST FOR THYROID - TAKE ON AN EMPTY STOMACH WITH A FULL GLASS OF WATER Rx# [id number] Last Released: 03/19/24 Qty/Days Supply: Rx Expiration Date: 03/17/25 Refills Remainin Indication: FOR THYROID OUTPT LIDOCAINE 5% OINT (Status = Active) APPLY LIBERAL AMOUNT TOPICALLY TWICE DAILY NERVE PAIN Rx# [id number] Last Released: 01/09/24 Qty/Days Supply: Rx Expiration Date: 01/05/25 Refills Remainin Indication: NERVE PAIN Non-VA LINACLOTIDE 72MCG CAP TAKE 1 CAPSULE BY MOUTH ONCE DAILY Non-VA LISINOPRIL 5MG TAB TAKE ONE TABLET BY MOUTH ONCE DAILY Non-VA METOPROLOL TARTRATE 25MG TAB TAKE ONE TABLET BY MOUTH TWICE DAILY Medication prescribed by Non-VA provider. OUTPT ONDANSETRON HCL 4MG TAB (Status = ) TAKE ONE TABLET BY MOUTH TWICE DAILY NEEDED FOR NAUSEA AND VOMITING Rx# [id number] Last Released: 04/10/24 Qty Supply: 6030 Rx Expiration Date: 04/13/24 Refills [...] THREE TIMES DAILY NEEDED SENSOR FAILURE Rx# [id number] Last Released: 11/03/23 Qty/Days Supply: 100/30 Rx Expiration Date: 10/21/24 Refills Remainin Indication: SENSOR FAILURE OUTPT DEPEND UNDERWEAR,MAXIMUM,MEN SM/MED (Status = Active) USE 1 BRIEF DIRECTED ONCE DAILY NEEDED Rx# [id number] Last Released: 04/10/24 Qty/Days Supply: Rx Expiration Date: 08/01/24 Refills Remainin Indication: INCONTINENCE OUTPT GLUCOSE SENSOR FREESTYLE REYES 2 (Status = Discontinued) USE 1 SENSOR DIRECTED EVERY 14 DAYS Rx# [id number] Last Released: 12/13/23 Qty/Days Supply: 10/26 Rx Expiration Date: 12/08/24 Refills Remainin OUTPT GLUCOSE SENSOR FREESTYLE REYES 3 (Status = Discontinued) USE 1 SENSOR DIRECTED EVERY 14 DAYS Rx# [id number] Last Released: 03/08/24 Qty/Days Supply: 10/26 Rx Expiration Date: 01/06/25 Refills Remainin OUTPT GLUCOSE SENSOR FREESTYLE REYES 3 (Status = Active) USE 1 SENSOR DIRECTED EVERY 14 DAYS Rx# [id number] Last Released: Qty/Days Supply: 10/26 Rx Expiration Date: 04/28/25 Refills Remainin OUTPT NEEDLE,PEN 32G,4MM (Status = Active) USE 1 NEEDLE SUBCUTANEOUSLY FOUR TIMES A DAY FOR USE WITH PEN DEVICE Rx# [id number] Last Released: 07/28/23 Qty/Days Supply: Rx Expiration Date: 07/26/24 Refills Remainin OUTPT TRANSPARENT DRESSING 2 3/8IN X 2 3/4IN (Status = Active) APPLY 1 DRESSING TOPICALLY [id number] Rx# [id number] Last Released: 12/13/23 Qty/Days Supply: Rx Expiration Date: 12/13/24 Refills Remainin /es/ HARSHA LANDAVERDE DPM BULK FLUIDS HANDLER Signed: 05/03/2024 08:47 HARSHA LANDAVERDE [facility]
--- OUTSIDE RECORDS SUMMARY | 2024-10-31 08:09 | XMS_ITS | Continuity of Care Document ---
Author Organization [facility] [address] [facility] [address] [place] [address] Phone [phone] Care Team Providers Care Test Center Manager Name Role Phone Deyvi Brantley M.D. Care Team Information [employer] Professional [phone] Problems Active Problems Provider Date Type 2 diabetes mellitus Bridger Reece M.D. Onset: 03/23/2022 Hypothyroidism Bridger Reece M.D. Onset: 0 03/23/2022 Carcinoma of bladder Bridger Reece M.D. Ons et: 11/02/2022 Peripheral vascular disease Huong Murrell Onset: 11/02/2022 Social History Type Date Description Comments Sex Unknown ETOH Use Denies alcohol use Tobacco Use Start: Unknown Patient is a cur rent smoker, smokes every day Smoking Status Reviewed: 02/03/23 Patient is a current smoker, smokes every day Allergies and adverse reactions Active Allergies Criticality Reaction Severity Comments Date Lexapro Unable to assess criticality 03/24/2022 Augmentin Unable to assess criticality N&V 03/24/2022 Medications Active Medications SIG Qnty Indications Order ing Provider Date Ycphdrc1ri Tablets 1 tab by mouth every day Bridger Reece M.D. 07/26/2022 Cardizem [id number] Caps ER 24HR 1 tab by mouth every day Bridger Reece M.D. 07/26/2022 Xptptdfgx99yp Tablets 1 by mouth every day Bridger Reece M.D. 07/26/2022 Metoprolol Qpismopn962zm Tablets 1 tab by mouth twice a day Bridger Reece M.D. 03/24/2022 Xupnzabipl78lg Tablets Take 1 Tablet By Mouth AT Bedtime Marcia Richard MD Atorvastatin Cahidsg61su Tablets 1 tab by mouth every evening 90tabs Deyvi Brantley M.D. Warfarin Vquzcf9xa Tablets as directed Deyvi Brantley M.D. Levothyroxine Hlswln719mgh Tablets 1 tab by mouth every morning Deyvi Brantley M.D. Tamsulosin HCL0.4mg Capsules 1 tab by mouth every night Unknown Novolog Vfynskw432Lanx/ML Solution Pen-Inject Inject 6 Units Under The Skin Before Meals Bridger Reece M.D. BD Pen Needle/Scarlet 2ND Gen/32G X 5/32 32G X 4 mm Misc Use 1 Needle Four Times Daily Bridger Reece M.D. Basaglar Wumdmef257Lxta/ML Solution Pen-Inject Inject 25 Units Subcutaneously Once A Day Bridger Reece M.D. [id number] it Tablets 5 tabs ac and 2 before snacks Unknown Vital Signs Date Vital Result Comment 02/03/2023 8:54am BP Systolic 118 mmHg BP Diastolic 62 mmHg Heart Rate 76 /min Height 68 inches 5'8 Weight 187.00 lb BMI (Body Mass Index) 28.4 kg/m2 Results Test Acquired Date Facility Test Result H/L Range N ote Laboratory test finding 02/03/2023 Inhouse Glucose Fingerstick 116 Hemoglobin A1c 7.3% Laboratory test finding 11/02/2022 Inhouse Glucose Fingerstick 161 Hemoglobin A1c 7.4 Laboratory test finding 07/26/2022 Inhouse Hemoglobin A1c 7.8% Glucose Fingerstick 147 Laboratory test finding 03/24/2022 Inhouse Glucose Fingerstick 299 Medical Devices Description No Information Available Encounters Type Date Location Provider Dx Diagnosis Office Visit 02/03/2023 9:15a Main Office Bridger Reece M.D. E11.9 Type 2 diabetes mellitus without complications Assessments Date Code Description Provider 02/03/2023 E11.9 Type 2 diabetes mellitus without complications Bridger Reece M.D. Plan of Treatment No Information Available Functional Status Description No Information Available Mental Status Description No Information Available Referrals Description No Information Available
--- OUTSIDE RECORDS SUMMARY | 2024-10-31 08:09 | XMS_ITS | Continuity of Care Document ---
Author Name [facility] Organization [facility] Care Team Providers Care Storeperson Name Role Phone [facility] Unavailable Unavailable Problems Combined list of problems from Department of Defense and Veterans Affairs facilities. It does not include entries that were removed or entered in error. Problem Status Onset Date Problem Type Date of Resolution Comments Source Abdominal aortic aneurysm (SNOMED CT [id number]) Active Condition Apr 04, 2017 Entered By: ERIC MCINTOSH Comment: Dx'd 2015: is < 3.0 CM as of AUG 13; follows w/ Private VascularAug 2017 Entered By: ERIC MCINTOSH Comment: 03/31/18: Abd CT - 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 [place] Atrial fibrillation Active Condition [facility] Bladder cancer Active Condition Oct 272020 Entered By: ERIC MCINTOSH Comment: 11/05/20 - Dr. 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 [facility] Bone density below reference range Active Condition [facility] Cervical radiculopathy Active Condition Aug 13, 2016 Entered By: JUAN MARISCAL Comment: Surg Fusion C3 - - C5; [place] Chronic pancreatitis Active Condition Mar 15, 2019 Entered By: ERIC MCINTOSH Comment: Davon 08/2018 - Dr Ward 2018 Entered By: ERIC MCINTOSH Comment: Scheduled to see Chronic Pancreatitis specialistend of 02/2019 at [facility] in [facility] [place] [facility] Colonoscopy Screening Active Condition Apr 04, 2017 Entered By: ERIC MCINTOSH Comment: 2008: +Tub Adenomas - repeat AUG 2016 [place] Coronary artery disease Active Condition Apr 03, 2018 Entered By: ERIC MCINTOSH Comment: AMI 2003; had Angioplasty; no CABG or StentFeb 01, 2018 Entered By: ERIC MCINTOSH Comment: Dr Strong/Cardiol nanciy [place] 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 [facility] Food insecurity Active Condition [facility] Hyperparathyroidism Active Condition [facility] Localized osteoarthrosis Active Condition Aug 13, 2016 Entered By: JUAN MARISCAL Comment: Primarily Knees, Low Back; R Knee WorstDe2015 Entered By: JUAN MARISCAL Comment: has seen Private Ortho; Received Inj's Knees [place] Meniere's disease Active Condition 2016 Entered By: JUAN MARISCAL Comment: Ativan Abates Acute Sx; is Severe (gets Drop Attacks )Oct 14, 2016 Entered By: JUAN MARISCAL Comment: Saw ENT, [facility]; also do PT at [place] in NOV 12 [place] Mixed hyperlipidemia Active Condition [facility] [place] [facility] Onychomycosis of toenails Active Condition [facility] Overweight Active Condition [facility] Peripheral vascular disease Active Condition Aug 13, 2016 Entered By: JUAN MARISCAL Comment: Femoral-Poplite al By-Pass, R Side 2005;Apr 04, 2017 Entered By: ERIC MCINTOSH Comment: Stents Placed Left Leg 2016 Entered By: ERIC MCINTOSH Comment: Signif Stenosis of Carotids B/L; not Surg Case yet as of Sep Entered By: ERIC MCINTOSH Comment: Dr Reddy/Vascular [place] Primary Care Physician Active Condition May 10, 2019 Entered By: ERIC MCINTOSH Comment: Dr Brantley - [facility] Sciatica Active Condition Apr 04 Entered By: ERIC MCINTOSH Comment: Radicular Sx LLE- Fusion L5-S1 2004 [place] Thyroid nodule Active Condition [facility] Tobacco dependence, continuous Active Condition Feb 01, 2018 Entered By: ERIC MCINTOSH Comment: Quit 08/19/17 [facility] Diagnosis: ICD-10-CM E04.1 Nontoxic single thyroid nodule Active Diagnosis [facility] Diagnosis: ICD-10-CM E11.9 Type 2 diabetes mellitus without complications Active Diagnosis [facility] Diagnosis: ICD-10-CM 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, NEC, bilateral Active Diagnosis [facility] Diagnosis: ICD-10-CM E08.9 Diabetes due to underlying condition w/o complications Active Diagnosis [facility] Diagnosis: ICD-10-CM Z71.89 Other specified counseling Active Diagnosis [facility] [place] [facility] Diagnosis: ICD-10-CM L60.3 Nail dystrophy Active Diagnosis [facility] Diagnosis: ICD-10-CM E11.51 Type 2 diabetes w diabetic peripheral angiopath w/o gangrene Active Diagnosis [place] Diagnosis: ICD-10-CM M85.9 Disorder of bone density and structure, unspecified Active Diagnosis [facility] Diagnosis: ICD-10-CM R42 Dizziness and giddiness Active Diagnosis [facility] Diagnosis: ICD-10-CM H81.399 Other peripheral vertigo, unspecified ear Active Diagnosis [facility] Diagnosis: ICD-10-CM Z46.0 Encounter for fit/adjst of spectacles and contact lenses Active Diagnosis [facility] Diagnosis: ICD-10-CM H81.09 Meniere's disease, unspecified ear Active Diagnosis [facility] Diagnosis: ICD-10-CM L60.0 Ingrowing nail Active Diagnosis [facility] [place] Diagnosis: ICD-10-CM I10 Essential (primary) hypertension Active Diagnosis [place] Diagnosis: ICD-10-CM Z46.1 Encounter for fitting and adjustment of hearing aid Active Diagnosis [facility] Diagnosis: ICD-10-CM H90.3 Sensorineural hearing loss, bilateral Active Diagnosis [facility] Medications Combined list of outpatient medications from Department of Defense and Veterans Affairs facilities.Medications provided include 1) outpatient medications from the last 15 months, and 2) patient-reported medications. Medication Details Route Status Patient Instructions Prescription Expires Prescription Number Last Dispense Date Ordering Provider Order Date Order Qty Source AMYLASE 30,000UNIT/ LIPASE 6,000UNIT/P ROTEASE 19,000UNIT CAP,EC TAKE 4 CAPSULES BY MOUTH THREE TIMES A DAY NEEDED ORAL ACTIVE ELLIS,AL ICE 2023 [facility] ASPIRIN 81MG TAB,EC TAKE ONE TABLET BY MOUTH EVERY DAY ORAL ACTIVE JODI MARISCAL 2015 [place] ATORVASTATI N [place] 80MG TAB TAKE ONE-HALF TABLET BY MOUTH AT BEDTIME ORAL ACTIVE ANNETTE MCINTOSH SA 2019 [facility] CALCIUM 500MG (CA CARBONATE-1 .25GM) TAB TAKE TWO TABLETS BY MOUTH ONCE DAILY ORAL ACTIVE ELLIS,AL ICE 2023 [facility] DILTIAZEM (EQV-TIAZAC AB4) 180MG 24HR CAP TAKE 1 CAPSULE BY MOUTH ONCE DAILY ORAL ACTIVE ELLIS,AL ICE 2023 [facility] EMPAGLIFLOZ IN 25MG TAB TAKE ONE TABLET BY MOUTH ONCE DAILY FOR TYPE 2 DIABETES MELLITUS ORAL ACTIVE 07/03/2025 [id number] ELLIS,AL ICE 2023 90 [facility] [place] [facility] EMPAGLIFLOZ IN 25MG TAB TAKE ONE TABLET BY MOUTH ONCE DAILY FOR DIABETES ORAL 05/12/2024 [id number] ELLIS,AL ICE 2022 90 [facility] FAMOTIDINE 10MG TAB TAKE ONE TABLET BY MOUTH AT BEDTIME ORAL ACTIVE ANNETTE MCINTOSH SA 2020 [facility] [facility] INSULIN,ASP ART,HUMAN (EQV-NOVOLO G) 100 UNIT/ML,FLE XPEN,3ML INJECT DIRECTED SUBCUTAN EOUSLY THREE TIMES A DAY 3 UNITS BREAKFAS T, 1 UNIT PER 6 GM CARB LUNCH, AND 1 UNIT PER 8 GM CARB DINNER 3 UNITS BREAKFAS T, 1 UNIT PER 6 GM CARB LUNCH, AND 1 UNIT PER 8 GM CARB DINNER SUBCUT ANEOUS HOLD 10/11/2025 [id number] 5 ELLIS,AL ICE 2024 10 [facility] [place] INSULIN,ASP ART,HUMAN (EQV-NOVOLO G) 100 UNIT/ML,FLE XPEN,3ML INJECT DIRECTED SUBCUTAN EOUSLY THREE TIMES A DAY 3 UNITS AT BREAKFAS T, 1 UNIT PER 8 GM CARB LUNCH, AND 1 UNIT PER 7 GM CARB DINNER PLEASE HOLD UNTIL REQUESTE D 3 UNITS AT BREAKFAS T, 1 UNIT PER 8 GM CARB LUNCH, AND 1 UNIT PER 7 GM CARB DINNER PLEASE HOLD UNTIL REQUESTE D SUBCUT ANEOUS DISCONT INUED (EDIT) 05/04/2025 [id number] ELLIS,AL ICE 2023 10 [facility] [place] INSULIN,ASP ART,HUMAN (EQV-NOVOLO G) 100 UNIT/ML,FLE XPEN,3ML INJECT INSULIN SUBCUTAN EOUSLY THREE TIMES A DAY FOR DIABETES FOLLOWS: 1 UNIT PER 7 GM OF CARBS AT BREAKFAS T, 1 UNIT PER 6 GM OF CARBS AT LUNCH, 1 UNIT PER 8 GM OF CARBS AT DINNER. SUBCUT ANEOUS DISCONT INUED (EDIT) 06/08/2024 [id number] 4 ELLIS,AL ICE 2023 10 [facility] [place] [facility] INSULIN,GLA RGINE,HUMAN 100 UNIT/ML INJ,SOLOSTA R,3ML INJECT 19 UNITS SUBCUTAN EOUSLY TWICE DAILY SUBCUT ANEOUS HOLD 10/11/2025 [id number] 5 ELLIS,AL ICE 2024 15 [facility] INSULIN,GLA RGINE-YFGN 100UNIT/ML INJ PEN,3ML INJECT 20 UNITS SUBCUTAN EOUSLY EVERY MORNING SUBCUT ANEOUS DISCONT INUED BY PROVIDE R 05/04/2025 [id number] 4 ELLIS,AL ICE 2023 10 [facility] [place] [facility] INSULIN,GLA RGINE-YFGN 100UNIT/ML INJ PEN,3ML INJECT 21 UNITS SUBCUTAN EOUSLY EVERY MORNING SUBCUT ANEOUS DISCONT INUED (EDIT) 01/05/2025 [id number] 4 ELLIS,AL ICE 2023 10 [facility] [place] INSULIN,GLA RGINE-YFGN 100UNIT/ML INJ PEN,3ML INJECT 26 UNITS SUBCUTAN EOUSLY EVERY MORNING FOR DIABETES SUBCUT ANEOUS DISCONT INUED (EDIT) 06/08/2024 [id number] 4 ELLIS,AL ICE 2023 10 [facility] LEVOTHYROXI NE NA 175MCG TAB (SYNTHROID) TAKE ONE TABLET BY MOUTH EVERY MORNING 30 MINUTES BEFORE BREAKFAS T FOR THYROID - TAKE ON AN EMPTY STOMACH WITH A FULL GLASS OF WATER ORAL ACTIVE 07/03/2025 [id number] 5 ELLIS,AL ICE 2024 90 [facility] [place] LEVOTHYROXI NE NA 175MCG TAB (SYNTHROID) TAKE ONE TABLET BY MOUTH EVERY MORNING 30 MINUTES BEFORE BREAKFAS T FOR THYROID - TAKE ON AN EMPTY STOMACH WITH A FULL GLASS OF WATER ORAL DISCONT INUED 03/17/2025 [id number] 4 ELLIS,AL ICE 2023 90 [facility] LEVOTHYROXI NE NA 175MCG TAB (SYNTHROID) TAKE ONE TABLET BY MOUTH EVERY MORNING 30 MINUTES BEFORE BREAKFAS T FOR THYROID FOR THYROID - TAKE ON AN EMPTY STOMACH WITH A FULL GLASS OF WATER ORAL DISCONT INUED 07/26/2024 [id number] 4 ELLIS,AL ICE 2022 90 [facility] LIDOCAINE 5% OINT,TOP APPLY LIBERAL AMOUNT TOPICALL Y TWICE DAILY NERVE PAIN TOPICA L DISCONT INUED BY PROVIDE R 01/05/2025 [id number] 4 ELLIS,AL ICE 2023 70 [facility] [place] LIDOCAINE 5% PATCH APPLY 1 PATCH TOPICALL Y ONCE DAILY FOR NERVE PAIN (LEAVE PATCH ON FOR 12 HOURS, THEN REMOVE PATCH) TOPICA L ACTIVE 06/28/2025 [id number] 4 MARICEL ELIAS 2023 30 [facility] LINACLOTIDE 72MCG CAP TAKE 1 CAPSULE BY MOUTH ONCE DAILY ORAL ACTIVE ELLIS,AL ICE 2021 [facility] LISINOPRIL 5MG TAB TAKE ONE TABLET BY MOUTH ONCE DAILY ORAL ACTIVE ELLIS,AL ICE 2022 [facility] METOPROLOL TARTRATE 25MG TAB TAKE ONE TABLET BY MOUTH TWICE DAILY ORAL ACTIVE ELLIS,AL ICE 2023 [facility] ONDANSETRON HCL 4MG TAB TAKE ONE TABLET BY MOUTH TWICE DAILY NEEDED FOR NAUSEA AND VOMITING ORAL 04/13/2024 [id number] ANNETTE MCINTOSH SA 2022 60 [facility] OTHER CAP/TAB TAKE VIOCASE BY MOUTH THREE TIMES A DAY ORAL ACTIVE ELLIS,AL ICE 2022 [facility] OTHER CAP/TAB TAKE BCG intravae sical VARIABLE ACTIVE ELLIS,AL ICE 2021 [facility] WARFARIN (NON-VA) TAB TAKE DIRECTED BY MOUTH EVERY DAY ORAL ACTIVE JODI MARISCAL 2015 [facility] [place] Allergies, Adverse Reactions, Alerts Combined list of allergies from Department of Defense and Veterans Affairs facilities. It does not include entries that were removed or entered in error. Substance Category Reaction Severity Reaction type Status Date Reported Comments Source METFORMIN Propensity to adverse reactions to drug (finding) Diarrhea active 9 [facility] [place] [facility] Immunizations Combined list of available immunizations from the Department of Defense and Veterans Affairs facilities. Immunization Series Date Given Administered By Site Reaction Lot Number CVX Code Drug Director Clinical Data Status Comments Source PNEUMOCOCCAL CONJUGATE PCV20, POLYSACCHARID E [id number] CONJUGATE, ADJUVANT, PF 2024 JORGE LUIS QEUEN RIGHT DELTO ID [id number] 216 complet ed [facility] [place] [facility] INFLUENZA, UNSPECIFIED FORMULATION 2023 88 complet ed [facility] [place] [facility] INFLUENZA, HIGH-DOSE, QUADRIVALENT 2022 VIETS,ORQUIDEA M LEFT DELTO ID [id number] 197 complet ed [facility] INFLUENZA, UNSPECIFIED FORMULATION 2021 88 complet ed [facility] COVID-19 (MODERNA), MRNA, LNP-S, PF, 100 MCG OR 50 MCG DOSE 3 2020 207 complet ed [facility] COVID-19 (MODERNA), MRNA, LNP-S, PF, 100 MCG OR 50 MCG DOSE 2 2020 207 complet ed [facility] COVID-19 (MODERNA), MRNA, LNP-S, PF, 100 MCG OR 50 MCG DOSE 1 2020 207 complet ed [facility] INFLUENZA, UNSPECIFIED FORMULATION 2019 88 complet ed [facility] INFLUENZA, SEASONAL, INJECTABLE 2019 141 complet ed [facility] INFLUENZA, INJECTABLE, QUADRIVALENT 2017 158 complet ed Site: Right Deltoid [place] ZOSTER RECOMBINANT 2 2017 187 complet ed Per [facility] ZOSTER RECOMBINANT 1 2017 187 complet ed Per [place] [facility] TDAP 2016 115 complet ed Site: Right Deltoid [place] FLU,3 YRS (HISTORICAL) 2015 88 complet ed Site: Left Deltoid [place] Results Combined list of recent chemistry, hematology and other laboratory results from Department of Defense and Veterans Affairs, ranging from 15 months to all on record, depending upon the facility. Order Name Results Value Reference Range Date Interpretation Specimen Comments Source HEMOGLOBI N A1C PANEL HEMOGLOBIN A1C/HEMOGLO BIN.TOTAL IN BLOOD BY HPLC 6.5 4.0 - 5.6 09/20 H Specimen Type: BLOOD Comment: Values obtained from A1C measurement s can vary. For atypical A1C assays, a reported value of 7.0 could actually be between 6.72 and 7.28 if measured by a reference method. A reported value of 9.0 could actually be between 8.73 and 9.27. Ref: [email or web address] Pdata.asp Ordering Provider: ISHAN ELLIS Report Released Date/Time: Jul 02, 2024 11:06 AM Reporting Lab: [facility] [place] [facility] [address] [address] Performing Lab: [facility] [address] [address] [facility] [address] [facility] CALCIUM CALCIUM [MASS/VOLUM E] IN SERUM OR PLASMA 9.0 mg/dL 8.5 - 10.2 09/20 Specimen Type: SERUM No comment entered. Ordering Provider: ISHAN ELLIS Report Released Date/Time: Jul 02, 2024 11:06 AM Reporting Lab: [facility] [address] [address] Performing Lab: [facility] [address] [facility] VITAMIN D (25-OH) 25-HYDROXYV ITAMIN D3 [MASS/VOLUM E] IN SERUM OR PLASMA 30 ng/mL 20 - 50 09/20 Specimen Type: SERUM No comment entered. Ordering Provider: ISHAN ELLIS Report Released Date/Time: Jul 02, 2024 11:06 AM Reporting Lab: [facility] [address] [address] Performing Lab: [facility] [address] [address] [facility] BASIC METABOLIC PANEL (non-fast ing) UREA NITROGEN [MASS/VOLUM E] IN SERUM OR PLASMA 9 mg/dL 7 - 25 09/20 Specimen Type: SERUM No comment entered. Ordering Provider: ISHAN ELLIS Report Released Date/Time: Jul 02, 2024 11:06 AM Reporting Lab: [facility] [place] [facility] [address] [address] Performing Lab: [facility] [address] [address] [facility] BASIC METABOLIC PANEL (non-fast ing) GLUCOSE [MASS/VOLUM E] IN SERUM OR PLASMA 170 mg/dL 65 - 100 09/20 H Specimen Type: SERUM No comment entered. Ordering Provider: ISHAN ELLIS Report Released Date/Time: Jul 02, 2024 11:06 AM Reporting Lab: [address] [address] Performing Lab: [address] [address] [facility] BASIC METABOLIC PANEL (non-fast ing) SODIUM [MOLES/VOLU ME] IN SERUM OR PLASMA 138 mmol/L 135 - 145 09/20 Specimen Type: SERUM No comment entered. Ordering Provider: ISHAN ELLIS Report Released Date/Time: Jul 02, 2024 11:06 AM Reporting Lab: [address] [address] Performing Lab: [address] [address] [facility] BASIC METABOLIC PANEL (non-fast ing) POTASSIUM [MOLES/VOLU ME] IN SERUM OR PLASMA 3.9 mmol/L 3.5 - 5.0 09/20 Specimen Type: SERUM No comment entered. Ordering Provider: ISHAN ELLIS Report Released Date/Time: Jul 02, 2024 11:06 AM Reporting Lab: [address] [address] Performing Lab: [facility] [address] [address] [facility] BASIC METABOLIC PANEL (non-fast ing) CHLORIDE [MOLES/VOLU ME] IN SERUM OR PLASMA 104 mmol/L 100 - 110 09/20 Specimen Type: SERUM No comment entered. Ordering Provider: ISHAN ELLIS Report Released Date/Time: Jul 02, 2024 11:06 AM Reporting Lab: [address] [address] Performing Lab: [facility] [address] [address] [facility] BASIC METABOLIC PANEL (non-fast ing) CARBON DIOXIDE, TOTAL [MOLES/VOLU ME] IN SERUM OR PLASMA 24 meq/L - 09/20 Specimen Type: SERUM No comment entered. Ordering Provider: ISHAN ELLIS Report Released Date/Time: Jul 02, 2024 11:06 AM Reporting Lab: [facility] [address] [address] Performing Lab: [facility] [address] [address] [facility] BASIC METABOLIC PANEL (non-fast ing) CREATININE [MASS/VOLUM E] IN SERUM OR PLASMA 0.85 mg/dL 0.50 - 1.40 09/20 Specimen Type: SERUM No comment entered. Ordering Provider: ISHAN ELLIS Report Released Date/Time: Jul 02, 2024 11:06 AM Reporting Lab: [facility] [address] [address] Performing Lab: [address] [address] [facility] BASIC METABOLIC PANEL (non-fast ing) GLOMERULAR FILTRATION RATE/1.73 SQ M.PREDICTED [VOLUME RATE/AREA] IN SERUM, PLASMA OR BLOOD BY CREATININE- BASED FORMULA (CKD-EPI 2020) >90mL/ min 60 09/20 Specimen Type: SERUM No comment entered. Ordering Provider: ISHAN ELLIS Report Released Date/Time: Jul 02, 2024 11:06 AM Reporting Lab: [facility] [address] [address] Performing Lab: [address] [address] [facility] THYROID T4 FREE(FT4) (WROX) THYROXINE (T4) FREE [MASS/VOLUM E] IN SERUM OR PLASMA 1.55 ng/dL 0.6 - 1.6 06/27 Specimen Type: SERUM No comment entered. Ordering Provider: ISHAN ELLIS Report Released Date/Time: Apr 20, 2024 06:27 PM Reporting Lab: [facility] [place] [facility] [address] [address] Performing Lab: [facility] [place] [facility] [address] [address] [facility] [place] [facility] CALCIUM CALCIUM [MASS/VOLUM E] IN SERUM OR PLASMA 9.4 mg/dL 8.5 - 10.2 06/27 Specimen Type: SERUM No comment entered. Ordering Provider: ISHAN ELLIS Report Released Date/Time: Apr 20, 2024 06:27 PM Reporting Lab: [facility] [place] [facility] [address] [address] Performing Lab: [facility] [place] [address] [address] [facility] [place] [facility] VITAMIN D (25-OH) 25-HYDROXYV ITAMIN D3 [MASS/VOLUM E] IN SERUM OR PLASMA 37 ng/mL 20 - 50 06/27 Specimen Type: SERUM No comment entered. Ordering Provider: ISHAN ELLIS Report Released Date/Time: Apr 20, 2024 06:27 PM Reporting Lab: [facility] [place] [facility] [address] [address] Performing Lab: [facility] [place] [address] [address] [facility] [place] [facility] PTH INTACT PARATHYRIN. INTACT [MASS/VOLUM E] IN SERUM OR PLASMA 62.8 pg/mL 10 - 65 06/27 Specimen Type: SERUM No comment entered. Ordering Provider: ISHAN ELLIS Report Released Date/Time: Apr 20, 2024 06:27 PM Reporting Lab: [facility] [place] [facility] [address] [address] Performing Lab: [facility] [place] [address] [address] [facility] HEMOGLOBI N A1C PANEL HEMOGLOBIN A1C/HEMOGLO BIN.TOTAL IN BLOOD BY HPLC 6.3 4.0 - 5.6 06/25 H Specimen Type: BLOOD Comment: Values obtained from A1C measurement s can vary. For atypical A1C assays, a reported value of 7.0 could actually be between 6.72 and 7.28 if measured by a reference method. A reported value of 9.0 could actually be between 8.73 and 9.27. Ref: [email or web address]/[email or web address] Pdata.asp Ordering Provider: LILY ELIAS Report Released Date/Time: Jun 14, 2024 02:11 PM Reporting Lab: [address] [address] Performing Lab: [address] [address] [facility] LIPID PANEL, NON FASTING CHOLESTEROL [MASS/VOLUM E] IN SERUM OR PLASMA 95 mg/dL 06/25 Specimen Type: SERUM No comment entered. Ordering Provider: LILY ELIAS Report Released Date/Time: Jun 14, 2024 02:11 PM Reporting Lab: [address] [address] Performing Lab: [address] [address] [facility] LIPID PANEL, NON FASTING TRIGLYCERID E [MASS/VOLUM E] IN SERUM OR PLASMA 91 mg/dL 0 - 150 06/25 Specimen Type: SERUM No comment entered. Ordering Provider: LILY ELIAS Report Released Date/Time: Jun 14, 2024 02:11 PM Reporting Lab: [address] [address] Performing Lab: [address] [address] [facility] LIPID PANEL, NON FASTING CHOLESTEROL IN LDL [MASS/VOLUM E] IN SERUM OR PLASMA BY CALCULATION 30 mg/dL 0 - 129 06/25 Specimen Type: SERUM No comment entered. Ordering Provider: LILY ELIAS Report Released Date/Time: Jun 14, 2024 02:11 PM Reporting Lab: [facility] [place] [facility] [address] [address] Performing Lab: [facility] [place] [facility] [address] [address] [facility] [place] [facility] LIPID PANEL, NON FASTING CHOLESTEROL .TOTAL/CHOL ESTEROL IN HDL [MASS RATIO] IN SERUM OR PLASMA 2.0 06/25 Specimen Type: SERUM No comment entered. Ordering Provider: LILY ELIAS Report Released Date/Time: Jun 14, 2024 02:11 PM Reporting Lab: [facility] [place] [facility] [address] [phone] Performing Lab[facility] [place] [facility] [address] [phone] [facility] [place] [facility] LIPID PANEL, NON FASTING CHOLESTEROL IN HDL [MASS/VOLUM E] IN SERUM OR PLASMA 47 mg/dL 40 - 60 06/25 Specimen Type: SERUM No comment entered. Ordering Provider: LILY ELIAS Report Released Date/Time: Jun 14, 2024 02:11 PM Reporting Lab: [facility] [place] [facility] [address] [phone] Performing Lab: [facility] [place] [address] [address] [facility] [facility] Vital Signs Combined list of inpatient and outpatient Vital Signs from Department of Defense and Veterans Affairs, ranging from 12 months to all on record, depending upon the facility. Vital Sign Value Date Comments Source SYSTOLIC BLOOD PRESSURE 135 10/10/19 25 08:30:00 [facility] DIASTOLIC BLOOD PRESSURE 87 025 08:30:00 [facility] PULSE OXIMETRY 99 10/10/2024 08:30:00 [facility] WEIGHT 182.8 10/10/2024 08:30:00 [facility] BMI 28 kg/m2 10/10/2024 08:30:00 [facility] PAIN 5 10/10/2024 08:30:00 [facility] TEMPERATURE 98.2 10/10/2024 08:30:00 [facility] PULSE 57 10/10/2024 08:30:00 [facility] RESPIRATION 18 10/10/2024 08:30:00 [facility] SYSTOLIC BLOOD PRESSURE 118 07/02/20 10:43:44 [facility] DIASTOLIC BLOOD PRESSURE 74 10:43:44 [facility] PULSE OXIMETRY 99 07/02/2024 10:43:44 [facility] WEIGHT 173 07/02/2024 10:43:44 [facility] BMI 26 kg/m2 07/02/2024 10:43:44 [facility] PAIN 10 07/02/2024 10:43:44 [facility] TEMPERATURE 98.2 07/02/2024 10:43:44 [facility] PULSE 74 07/02/2024 10:43:44 [facility] RESPIRATION 16 07/02/2024 10:43:44 [facility] SYSTOLIC BLOOD PRESSURE 138 06/28/20 24 07:42:00 [facility] DIASTOLIC BLOOD PRESSURE 86 024 07:42:00 [facility] SYSTOLIC BLOOD PRESSURE 150 06/27/20 24 10:53:01 [facility] DIASTOLIC BLOOD PRESSURE 93 024 10:53:01 [facility] PULSE OXIMETRY 100 06/27/2024 10:53:01 [facility] WEIGHT 182 06/27/2024 10:53:01 [facility] BMI 28 kg/m2 06/27/2024 10:53:01 [facility] PAIN 9 06/27/2024 10:53:01 [facility] HEIGHT 68 06/27/2024 10:53:01 [facility] TEMPERATURE 98.3 06/27/2024 10:53:01 [facility] PULSE 76 06/27/2024 10:53:01 [facility] RESPIRATION 20 06/27/2024 10:53:01 [facility] SYSTOLIC BLOOD PRESSURE 120 04/02/20 24 08:57:26 [facility] DIASTOLIC BLOOD PRESSURE 74 024 08:57:26 [facility] PULSE OXIMETRY 97 04/02/2024 08:57:26 [facility] WEIGHT 183.2 04/02/2024 08:57:26 [facility] BMI 28 kg/m2 04/02/2024 08:57:26 [facility] PAIN 5 04/02/2024 08:57:26 [facility] TEMPERATURE 98 04/02/2024 08:57:26 [facility] PULSE 80 04/02/2024 08:57:26 [facility] RESPIRATION 18 04/02/2024 08:57:26 [facility] Encounters Combined list of: 1) Encounters from Department of Veterans Affairs facilities going backup to the last 18 months, not all VA inpatient encounters are included; 2) Encounters from the Department of Defense facilities going backup to 280 months. Location Location Details Encounter Type Encounter Number Reason For Visit Attending Provider ADM Date DC Date Status Disposition Source [facility] Outpatient Encounter [id number] 05/11 [facility] HEARING AID EXAM BOTH EARS [id number] Diagnos is: ICD-10- CM H90.3 Sensori neural hearing loss, bilater al CLIF,Vasquez JAMEL E 05/16 [facility] Outpatient Encounter [id number] 06/01 [facility] OFF/OP EST MAY X REQ PHY/QHP [id number] Diagnos is: ICD-10- CM E08.9 Diabete s due to underly ing conditi on w/o complic ations NAYA FOX E M 06/08 [facility] OFFICE O/P EST HI 40-54 MIN [id number] Diagnos is: ICD-10- CM E08.9 Diabete s due to underly ing conditi on w/o complic ations KARIS ELLIS 06/08 [facility] IMMUNIZATI [facility] ADMIN [id number] NAYA FOX 06/08 [facility] CONT GLUC MNTR ANALYSIS I&R [id number] Diagnos is: ICD-10- CM E08.9 Diabete s due to underly ing conditi on w/o complic ations KARIS ELLIS 06/08 [facility] Outpatient Encounter [id number] 06/13 [facility] HEARING AID REPAIR/MOD IFYING [id number] Diagnos is: ICD-10- CM Z46.1 Encount er for fitting and adjustm ent of hearing aid Vasquez MENEZES 06/15 [facility] Out[facility] Encounter [id number] KARIS ELLIS 07/07 [facility] Out[facility] Encounter [id number] KARIS ELLIS 07/26 [facility] [place] OFFICE O/P EST LOW 20-29 MIN [id number] Diagnos is: ICD-10- CM I10 Essenti al (primar y) hyperte nsion SANDRA MCINTOSH 08/01 [place] [facility] PT EVAL HIGH COMPLEX 45 MIN [id number] Diagnos is: ICD-10- CM R42 Dizzine ss and giddine ss YUDITH GARCIA M 09/15 [facility] [place] OFF[place] O/P EST LOW 20 MIN [id number] Diagnos is: ICD-10- CM L60.0 Ingrowi ng nail GERMANIA LANDAVERDE ES F 09/22 [place] [facility] Outpatient Encounter [id number] KARIS ELLIS 09/24 [facility] THERAPEUTI C EXERCISES [id number] Diagnos is: ICD-10- CM R42 Dizzine ss and giddine ss YUDITH GARCIA M 09/26 [facility] OFFICE O/P EST MOD 30 MIN [id number] Diagnos is: ICD-10- CM E08.9 Diabete s due to underly ing conditi on w/o complic ations KARIS ELLIS CE 09/26 [facility] OFF/OP EST MAY X REQ PHY/QHP [id number] Diagnos is: ICD-10- CM E08.9 Diabete s due to underly ing conditi on w/o complic ations KARLA PIERRE A 09/27 [facility] Out[facility] Encounter [id number] 09/29 [facility] Outpatient Encounter [id number] Jourdan JIMENEZ M 10/03 [facility] THERAPEUTI C EXERCISES [id number] Diagnos is: ICD-10- CM H81.09 Meniere 's disease , unspeci fied ear YUDITH GARCIA M 10/10 [facility] Outpatient Encounter [id number] Diagnos is: ICD-10- CM 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, NEC, bilater al DHRUV TIM MORENITA 10/13 [facility] EXTENDED VISUAL FIELD XM [id number] Diagnos is: ICD-10- CM 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, NEC, bilater al MEETA,HI MORENITA 10/13 [facility] [place] 1 [id number] Diagnos is: ICD-10- CM E11.9 Type 2 diabete s mellitu s without complic ations DHRUV TIM 10/13 [facility] THERAPEUTI C EXERCISES [id number] Diagnos is: ICD-10- CM H81.399 Other periphe ral vertigo , unspeci fied ear YUDITH GARCIA FARZANAAllyson M 10/13 [facility] FIT SPECTACLES MULTIFOCAL [id number] Diagnos is: ICD-10- CM Z46.0 Encount er for fit/adj st of spectac les and contact lenses DHRUV TIM 10/19 [facility] HOT OR COLD PACKS THERAPY [id number] Diagnos is: ICD-10- CM H81.399 Other periphe ral vertigo , unspeci fied ear YUDITH GARCIA M 10/24 [facility] Outpatient Encounter [id number] SANDRA MCINTOSH 10/26 [facility] NEUROMUSCU LAR REEDUCATIO N [id number] Diagnos is: ICD-10- CM R42 Dizzine ss and giddine ss YUDITH GARCIA M [facility] NEUROMUSCU LAR REEDUCATIO N [id number] Diagnos is: ICD-10- CM R42 Dizzine ss and giddine ss GEOVANNIENIOYUDITH M 10/31 [facility] Outpatient Encounter [id number] KARIS ELLIS CE 12/07 [facility] Out[facility] Encounter [id number] 12/12 [facility] Outpatient Encounter [id number] 12/12 [facility] OFFICE O/P EST MOD 30 MIN [id number] Diagnos is: ICD-10- CM E08.9 Diabete s due to underly ing conditi on w/o complic ations KARIS ELLIS CE 01/04 [facility] CONT GLUC MNTR ANALYSIS I&R [id number] Diagnos is: ICD-10- CM E08.9 Diabete s due to underly ing conditi on w/o complic ations KARIS ELLIS CE 01/04 [facility] CONT GLUC MNTR PT PROV EQP [id number] Diagnos is: ICD-10- CM E08.9 Diabete s due to underly ing conditi on w/o complic ations NAYA FOX M 01/04 [facility] [place] QNHP OL DIG ASSMT&MGMT 5-10 [id number] Diagnos is: ICD-10- CM E08.9 Diabete s due to underly ing conditi on w/o complic ations JAIRO WRIGHT 01/04 [place] [facility] Outpatient Encounter [id number] KARIS ELLIS CE 01/05 [facility] Outpatient Encounter [id number] KARIS ELLIS CE 01/05 [facility] Outpatient Encounter [id number] KARIS ELLIS CE 01/05 [facility] Outpatient Encounter [id number] KARIS ELLIS CE 01/05 [facility] Out[facility] Encounter [id number] 01/23 [facility] DIAB MANAGE TRN PER INDIV [id number] Diagnos is: ICD-10- CM E08.9 Diabete s due to underly ing conditi on w/o complic ations NAYA FOX 01/24 [facility] Out[facility] Encounter [id number] KARIS ELLIS CE 02/05 [facility] Out[facility] Encounter [id number] 03/14 [facility] Outpatient Encounter [id number] 03/16 [facility] Out[facility]counter [id number] KARIS ELLIS CE 03/31 [facility] OFFICE O/P EST MOD 30 MIN [id number] Diagnos is: ICD-10- CM E08.9 Diabete s due to underly ing conditi on w/o complic ations KARIS ELLIS CE 04/02 [facility] OFF/OP EST MAY X REQ PHY/QHP [id number] Diagnos is: ICD-10- CM E08.9 Diabete s due to underly ing conditi on w/o complic ations KYMCHRISTINAvila N 04/02 [facility] Outpatient Encounter [id number] 1.04/24 [facility] OFFICE O/P EST LOW 20 MIN [id number] Diagnos is: ICD-10- CM L60.3 Nail dystrop hy GERMANIA LANDAVERDE ES F 05/03 [place] [facility] Outpatient Encounter [id number] 1.05/03 [facility] DIAB MANAGE TRN PER INDIV [id number] Diagnos is: ICD-10- CM E08.9 Diabete s due to underly ing conditi on w/o complic ations JADYN GUERRA P 05/03 [place] [facility] Out[facility] Encounter [id number] 1.05/08 [facility] Out[facility]counter [id number]/08 [facility] Out[facility] Encounter [id number] 05/16 [facility] Out[facility] Encounter [id number] 05/21 [facility] Out[facility] Encounter [id number] 05/28 [facility] Out[facility] Encounter [id number] 1.06/27 [facility] OFFICE O/P EST MOD 30 MIN [id number] 1. Diagnos is: ICD-10- CM M85.9 Disorde r of bone density and structu re, unspeci Inocente Mckeon 06/27 [facility] Out[facility] Encounter [id number] 06/29 [facility] OFFICE O/P EST MOD 30 MIN [id number] Diagnos is: ICD-10- CM E08.9 Diabete s due to underly ing conditi on w/o complic ations ELLIS,ALI CE 07/02 [facility] Out[facility] Encounter [id number] Diagnos is: ICD-10- CM E08.9 Diabete s due to underly ing conditi on w/o complic ations NAYA FOX 07/02 [facility] CONT GLUC MNTR ANALYSIS I&R [id number] 1. Diagnos is: ICD-10- CM E08.9 Diabete s due to underly ing conditi on w/o complic ations KARIS ELLIS 07/02 [facility] Outpatient Encounter [id number] 1. Diagnos is: ICD-10- CM E08.9 Diabete s due to underly ing conditi on w/o complic ations TAMIKAJourdanNAYA E M 07/02 [facility] DIABETIC CUSTOM MOLDED SHOE [id number] Diagnos is: ICD-10- CM E11.51 Type 2 diabete s w diabeti c periphe ral angiopa th w/o gangren e PAJAK,REBEKAH E L 07/04 [facility] DIAB MANAGE TRN PER INDIV [id number] 1BY. 34 Diagnos is: ICD-10- CM E08.9 Diabete s due to underly ing conditi on w/o complic ations JADYN GUERRA NNIE P 09/06 [facility] OFFICE O/P EST LOW 20 MIN [id number] Diagnos is: ICD-10- CM L60.3 Nail dystrop hy ROSS,CHARL ES F 09/20 [facility] [place] [facility] Outpatient Encounter [id number] KARIS ELLIS 09/21 [facility] Outpatient [facility]counter [id number] HAYLEE QUEEN 09/25 [facility] OFF/OP EST MAY X REQ PHY/QHP [id number] Diagnos is: ICD-10- CM Z71.89 Other specifi ed awake overnight counselor ing HAYLEE QUEEN 09/26 [facility] OFF/OP EST MAY X REQ PHY/QHP [id number] Diagnos is: ICD-10- CM E08.9 Diabete s due to underly ing conditi on w/o complic ations ROBBIE MEJÍA N 10/10 [facility] OFFICE O/P EST MOD 30 MIN [id number] Diagnos is: ICD-10- CM E08.9 Diabete s due to underly ing conditi on w/o complic ations KARIS ELLIS 10/10 [facility] CPTRZD [place] [id number] Diagnos is: ICD-10- CM 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, NEC, bilater al MEETADHRUV XAVIER 10/23 [facility] OFFICE O/P EST MOD 30 MIN [id number] Diagnos is: ICD-10- CM E11.9 Type 2 diabete s mellitu s without complic ations DHRUV TIM MORENITA 10/23 [facility] SYNCH AUDIO-ONLY EST MOD 30 [id number] Diagnos is: ICD-10- CM E04.1 Nontoxi c single thyroid nodule KARIS ELLIS 10/27 [facility] Social History Combined list of available smoking, tobacco, and other social history from Department of Defense and Veterans Affairs facilities. Social History Type Response Date Comment Source Tobacco smoking status [facility] VA-TOBACCO USE EVERY DAY CIGARETTES 06/27/2024 [facility] History of tobacco use [facility] NEVER USED OTHER TYPE 06/27/2024 [facility] History of tobacco use [facility]-TOBACCO USER EVERY DAY 08/01/2023 [place] History of tobacco use VA-TOBACCO USER EVERY DAY 09/15/2021 [place] History of tobacco use VA-TOBACCO USER EVERY DAY 09/09/2020 [facility] History of tobacco use [facility] USE HEALTH INFORMATION CODER NO 05/02/2019 [place] History of tobacco use QUIT TOBACCO USE IN PAST YEAR 01/25/2018 QUIT 08/19/17 [place] History of tobacco use CURRENT SMOKER 04/04/2017 1.5 PACK A DAY [place] History of tobacco use CURRENT SMOKER 08/13/2016 [place] Plan of Care List of future care activities from Department of [facility] Affairs facilities. Additional future care activities may be listed in the Assessment and Plan section. Date/Time Care Activity Care Activity Detail Facili ty 11/30/2024 AMBULATORY - NONE AMBULATORY - NONE [facility] [place] [facility] 12/24/2024 AMBULATORY - MEDICINE [facility] [place] [facility] 12/24/2024 AMBULATORY - MEDICINE [facility] [place] [facility] 01/07/2025 AMBULATORY - MEDICINE [facility] [place] [facility] 01/24/2025 AMBULATORY - MEDICINE AMBULATORY - MEDICI [facility] 10/27/2024 Laboratory - Skill Labor ry Order PT and INR (PROTIME) BLOOD (BLUE-PLASMA) SP [facility] [place] [facility] 10/27/2024 Laboratory - Skill Labor ry Order PTT BLOOD (BLUE-PLASMA) SP [facility] [place] [facility] 10/27/2024 Laboratory - Skill Labor ry Order CBC AND DIFF (AUTO) BLOOD (LAV[facility]BLOOD) [facility] [place] [facility] 10/27/2024 Consult Order COMMUNITY CARE-INTERVENTIONAL RADIOLOGY Cons Director Perioperative's Choice [facility] [place] [facility] 11/30/2024 Imaging - Ultrasound [facility]
--- OUTSIDE RECORDS SUMMARY | 2024-10-31 08:09 | XMS_ITS | Encounter Summary ---
Author Name [facility] [place] [facility] [place] Address [address] [place] [id number] Care Team Providers Care Assistant Sales Director Name Role Phone MARICEL ELIAS Primary [...] SUPPLEMEN YAMILKA MEDEX 2 Apr 29, 2020 [id number] ALICE RUSSO PATIENT BCBS [place] MEDICARE SUPPLEMEN YAMILKA MEDEX 2 Apr 29, 2020 [id number] ALICE RUSSO PATIENT BCBS [facility] CE ORGANIZ [facility] SHARE ACTIV E Feb 27, 2012 [id number] ALICE RUSSO PATIENT [employer] ([id number]) PRESCRIPT ION L4TA* Feb 27, 2012 L4TA [id number] ALICE RUSSO PATIENT [employer] ([id number]) PRESCRIPT ION Feb 27, 2012 L4TA [id number] ALICE RUSSO PATIENT MEDICARE (WNR) MEDICARE (M) PART A Apr 29, 2020 PART A [id number] ALICE RUSSO PATIENT MEDICARE (WNR) MEDICARE (M) PART B Apr 29, 2020 PART B [id number] ALICE RUSSO PATIENT MEDICARE (WNR) MEDICARE (M) PART A Apr 29, 2020 PART A [id number] ALICE RUSSO PATIENT MEDICARE (WNR) MEDICARE (M) PART B Apr 29, 2020 PART B [id number] ALICE RUSSO PATIENT Selected Encounter This section includes the information on record at [place] for the Encounter. Date/Time Encounter Type Encounter Description Reason Pro vider Source Apr 24, 2024 01:55 PM Outpatient Encounter ADMIN PAT ACTIVTIES (MASNONCT) IHE Encounter Template Text not used by [place] Plan of Treatment: Future Appointments (+ 6 months) and Future Tests (+/- 45 days) The Plan of Treatment section includes future care activities for the patient from all [place] treatmentfacilities. This section includes future appointments and future orders which are active, pending or scheduled. Future Appointments This section includes appointments that were scheduled to occur 6 months from the date of the Encounter, up to a maximum of 20 appointments. The data comes from all [place] treatment facilities. Appointment Date/Time Appointment Type Appointme nt Facility Name May 03, 2024 08:30 AM [facility] May 03, 2024 03:00 PM [facility]ORY [facility] MEDICINE [facility] Jun 27, 2024 11:00 AM AMBULATORY [place]ICINE [place] [facility] Jul 02, 2024 10:30 AM AMBULATORY - MEDICINE [place] [facility] Jul 04, 2024 09:00 AM AMBULATORY - MEDICINE [place] [facility] Sep 06, 2024 03:00 PM [facility] Sep 20, 2024 08:30 AM [facility] Sep 26, 2024 09:30 AM AMBULATORY - MEDICINE [place] [facility] Oct 10, 2024 08:30 AM AMBULATORY - MEDICINE [place] [facility] Oct 23, 2024 03:00 PM AMBULATORY - NONE [place] [facility] Oct 23, 2024 03:15 PM AMBULATORY - MEDICINE [place] [facility] Oct 23, 2024 03:30 PM [facility] [place] [facility] Lab Results: +/- 30 days of the encounter This section includes the Chemistry and Hematology Lab Results on record with [place] for the patient. Radiology Reports and Pathology Reports are provided separately, in subsequent sections. Lab Results This section contains the Chemistry/Hematology Results that were resulted 30 days before or 30 daysafter the date of the Encounter. Date/Time Source Result Type Result - Unit Interpretation Reference Range Comment Mar 28, 2024 10:32 AM [facility] HEMOGLOBIN A1C PANEL Specimen Type: BLOOD [...] January 05, 2024 12:35 PM Reporting Lab: [facility] [address] [facility] [address] Performing Lab: [address] [address] HEMOGLOBIN A1C 7.3 H 4.0-5.6 Mar 28, 2024 10:32 AM [facility] CALCIUM Specimen Type: SERUM No comment entered. Ordering Provider: COMPA ELLIS Report Released Date/Time: January 05, 2024 12:35 PM Reporting Lab: [facility] [address] [facility] [address] Performing Lab: [address] [address] CALCIUM 8.9 mg/dL 8.5-10.2 Mar 28, 2024 10:32 AM [facility] VITAMIN D (25-OH) Specimen Type: SERUM No comment entered. Ordering Provider: COMPA ELLIS Report Released Date/Time: January 05, 2024 12:35 PM Reporting Lab: [address] [address] Performing Lab: [address] [address] VITAMIN D (25-OH) 40 ng/mL 20-50 Mar 28, 2024 10:32 AM [facility] BASIC METABOLIC PANEL (non-fasting) Specimen Type: SERUM No comment entered. Ordering Provider: COMPA ELLIS Report Released Date/Time: January 05, 2024 12:35 PM Reporting Lab: [address] [address] Performing Lab: [address] [address] UREA NITROGEN 12 mg/dL 7-25 GLUCOSE 107 [...] and tobacco- related health factors from the [place] facility where the Encounter took place. Current Smoking Status This section includes the most current smoking, or tobacco-related health factor, from the [place] facility where the Encounter took place. Date/Time Current Smoking Status Comment Facil ity Sep 09, 2020 08:36 AM VA-TOBACCO USER EVERY DAY [facility] Tobacco Use History This section includes a history of the smoking, or tobacco-related health factors, that were collected on or before the date of the Encounter. The data comes from the [place] facility where the Encounter took place. Date/Time Smoking Status/Tobacco Use Comment F acility Sep 09, 2020 08:36 AM VA-TOBACCO USE 30 YEARS OR MORE [facility] Sep 09, 2020 08:36 AM VA-TOBACCO USE ADVICE [place] 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 Sep 09, 2020 08:36 AM VA-TOBACCO USE MED NO [place] [facility] Sep 09, 2020 08:36 AM VA-TOBACCO USER EVERY DAY [facility] Encounter Notes: All associated encounter notes This section contains the clinical notes associated to the Encounter. Date/Time Encounter Note(s) Provider Source Apr 24, 2024 01:55 PM PHARMACY NOTE: LOCAL TITLE: PHARMACY CUSTOMER CARE MEDICATION RENEWAL STANDARD TITLE: PHARMACY NOTE DATE OF NOTE: APR 24, 2024@13:55 ENTRY DATE: APR 24, 2024@13:55:55 AUTHOR: ANGELY SABILLON EXP COSIGNER: URGENCY: STATUS: COMPLETED Date: Mar Division: [facility] referred by Pharmacy Call Center for medication renewal: Non-controlled/maintenan ce medication Medications requested: [id number] GLUCOSE SENSOR FREESTYLE REYES 3 Defer to specialty clinic To be mailed . Please review and renew if appropriate. *This note was generated by [facility] Customer [facility]. If you have any questions or need assistance, do not contact this author. Please refer all questions to your local, on-site pharmacy departments. /samara/ Angely Sabillon CPhT Dairy Bacteriologist, MD/Pharmacy Customer Care Signed: 04/24/2024 13:56 Receipt Acknowledged By: 04/27/2024 13:40 /samara/ COMPA ELLIS MD STAFF PHYSICIAN ANGELY SABILLON [facility]
--- OUTSIDE RECORDS SUMMARY | 2024-10-31 08:09 | XMS_ITS | Encounter Summary ---
Author Name [facility] [place] [facility] [place] Address [address] [place] [address] Care Team Providers Care Order Filler Name Role Phone MARICEL ELIAS Primary Care [...] SUPPLEMEN YAMILKA MEDEX 2 Apr 29, 2020 [id number] [phone] ALICE RUSSO PATIENT [place]BS [place] MEDICARE SUPPLEMEN YAMILKA MEDEX 2 Apr 29, 2020 [id number] ALICE RUSSO PATIENT BCBS [facility] CE ORGANIZ [facility] SHARE ACTIV E Feb 27, 2012 [id number] ALICE RUSSO PATIENT [employer] ([id number]) PRESCRIPT ION L4TA* Feb 27, 2012 L4TA [id number] ALICE RUSSO PATIENT [employer] ([id number]) PRESCRIPT ION Feb 27, 2012 L4TA [id number] ALICE RUSSO PATIENT MEDICARE (WNR) MEDICARE (M) PART B Apr 29, 2020 PART B [id number] ALICE RUSSO PATIENT MEDICARE (WNR) MEDICARE (M) PART A Apr 29, 2020 PART A [id number] ALICE RUSSO PATIENT MEDICARE (WNR) MEDICARE (M) PART A Apr 29, 2020 PART A [id number] [phone] ALICE RUSSO PATIENT MEDICARE (WNR) MEDICARE (M) PART B Apr 29, 2020 PART B [id number] ALICE RUSSO PATIENT Selected Encounter This section includes the information on record at [place] for the Encounter. Date/Time Encounter Type Encounter Description Reason Provider Source Apr 02, 2024 09:00 AM OFFICE O/P EST MOD 30 MIN ENDOCRINOLOGY ICD-10-CM E08.9 Diabetes due to underlying condition w/o complications [facility] Encounter Template Text not used by [place] Assessments - Encounter Diagnoses This section includes the primary and secondary diagnoses documented for the Encounter. 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 [facility] [place] [facility] Oct 02, 2024 01:57 PM SECONDARY Disorder of bone density and structure, unspecified [facility] [place] [facility] Oct 02, 2024 01:57 PM SECONDARY Essential (primary) hypertension [facility] [place] [facility] Oct 02, 2024 01:57 PM SECONDARY Hyperlipidemia, unspecified [facility] [place] [facility] Oct 02, 2024 01:57 PM SECONDARY Hyperparathyroidis m, unspecified [facility] [place] [facility] Oct 02, 2024 01:57 PM SECONDARY Hypothyroidism, unspecified [facility] [place] [facility] Plan of Treatment: Future Appointments (+ 6 [...] 20 appointments. The data comes from all [facility] facilities. Appointment Date/Time Appointment Type Appointme nt Facility Name May 03, 2024 08:30 AM AMBULATORY - MEDICINE [facility] May 03, 2024 03:00 PM AMBULATORY - MEDICINE [facility] Jun 27, 2024 11:00 AM AM[place]ORY [place] [facility] Jul 02, 2024 10:30 AM AMBULATORY [place]ICINE [place] [facility] Jul 04, 2024 09:00 AM AMBULATORY MEDICINE [place] [facility] Sep 06, 2024 03:00 PM AMBULATORY - MEDICINE [facility] Sep 20, 2024 08:30 AM AMBULATORY - MEDICINE [facility] Sep 26, 2024 09:30 AM AMBULATORY MEDICINE [place] [facility] Lab Results: +/- 30 days of [...] Range Comment Mar 28, 2024 10:32 AM [facility] HEMOGLOBIN A1C PANEL Specimen Type: BLOOD [...] January 05, 2024 12:35 PM Reporting Lab: [address] [address] Performing Lab: [address] [address] HEMOGLOBIN A1C 7.3 H 4.0-5.6 Mar 28, 2024 10:32 AM [facility] CALCIUM Specimen Type: SERUM No comment entered. Ordering Provider: COMPA ELLIS Report Released Date/Time: January 05, 2024 12:35 PM Reporting Lab: [facility] [address] [facility] [address] Performing Lab: [facility] [address] [facility] [address] CALCIUM 8.9 mg/dL 8.5-10.2 Mar 28, 2024 10:32 AM [facility] BASIC METABOLIC PANEL (non-fasting) Specimen Type: SERUM No comment entered. Ordering Provider: COMPA ELLIS Report Released Date/Time: January 05, 2024 12:35 PM Reporting Lab: [facility] [address] [facility] [address] Performing Lab: [facility] [address] [facility] [address] UREA NITROGEN 12 mg/dL 7-25 GLUCOSE 107 mg/dL H 65-100 SODIUM 139 mmol/L 135-145 POTASSIUM 3.9 mmol/L 3.5-5.0 CHLORIDE 107 mmol/L 100-110 CO2 24 meq/L 20-30 CREATININE, Serum 0.94 mg/dL 0.50-1.40 eGFR(CKD-EPI 2020) 88 mL/min >60 Mar 28, 2024 10:32 AM [facility] VITAMIN D (25-OH) Specimen Type: SERUM No comment entered. Ordering Provider: COMPA ELLIS Report Released Date/Time: January 05, 2024 12:35 PM Reporting Lab: [facility] [address] [facility] [address] Performing Lab: [address] [address] VITAMIN D (25-OH) 40 ng/mL 20-50 Vital Signs: All taken on the encounter date This section contains inpatient and outpatient Vital Signs collected on the date of the Encounter. Date/Time Temperature Pulse Blood Pressure Respiratory Rate SP02 Pain Height Weight Body Mass Index Source Apr 02, 2024 08:57 AM 98 80 120/74 18 97 5 183.2 28 [place] [facility] [employer] [facility] Social History: Smoking Status (Most current) and [...] 2020 08:36 AM VA-TOBACCO USER EVERY DAY [place] [facility] Tobacco Use History This section includes a history of the smoking, or tobacco-related health factors, that were collected on or before the date of the Encounter. The data comes from the [place] facility where the Encounter took place. Date/Time Smoking Status/Tobacco Use Comment F acility Sep 09, 2020 08:36 AM VA-TOBACCO USE 30 YEARS OR MORE [place] [facility] Sep 09, 2020 08:36 AM VA-TOBACCO USE ADVICE [place] [facility] Sep 09, 2020 08:36 AM VA-TOBACCO USE WOOL GRADER NO [place] [facility] [place] [facility] Sep 09, 2020 08:36 AM VA-TOBACCO USE MED NO [place] [facility] Sep 09, 2020 08:36 AM VA-TOBACCO USER EVERY DAY [facility] Encounter Notes: All associated encounter notes This section contains the clinical notes associated to the Encounter. 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 Higher CHO foods are easier to tolerate. This has led to issues with taking insulin for a meal that he cannot complete. Normal u/s kidney/bladder - no stones Normal bone density 12/2021. He is having a vascular evaluation. No temp intolerance. No diarrhea, some chronic constipation, adequately controlled. Taking levothyroxine 175 mcg daily. Takes this in AM, two hours apart from other medications. All endocrine labs were reviewed with the patient. Mar 28, 2024@10:32 VITAMIN D (25-OH): 40 ng/mL 20 - 50 January 04, 2024@13:53 PTH INTACT: 72.1 H pg/mL 10 - 65 Mar 28 2024@10:32 GLUCOSE 107 H mg/dL 65 - 100 BUN 12 mg/dL 7 - 25 CREATININE 0.94 mg/dL .5 - 1.4 Sodium 139 mmol/L 135 - 145 K+/Pot 3.9 mmol/L 3.5 - 5 CL 107 mmol/L 100 - 110 CO2 24 mEq/L 20 - 30 CA 8.9 mg/dL 8.5 - 10.2 January 03 Jan 04 20242023 TSH 2.11 uIU/mL .35 - 5 FT4 1.25 ng/dL .6 - 1.6 Barriers/s supports for care: Lives alone. Ability to eat is variable. Medications for diabetes: empagliflozin INSULIN,ASPART(EQV-NOVLG)100UN /ML FLXPEN INJECT INSULIN ACTIVE SUBCUTANEOUSLY THREE TIMES A DAY FOR DIABETES FOLLOWS: 1 UNIT PER 7 GM OF CARBS AT BREAKFAST, 1 UNIT PER 6 GM OF CARBS AT LUNCH, 1 UNIT PER 8 GM OF CARBS AT DINNER. INSULIN,GLARGINE-YFGN 100UNIT/ML PEN 3ML INJECT 21 UNITS ACTIVE SUBCUTANEOUSLY EVERY MORNING BG readings: CGM Hgba1c? HEMOGLOBIN A1C TREND 03/28/2024 10:32 BLOOD 7.3 H 01/04/2024 13:53 BLOOD 7.4 H 09/22/2023 09:59 BLOOD 7.0 H 05/31/2023 12:14 BLOOD 7.0 H 02/23/2023 09:18 BLOOD 6.8 H Weight trend: 190 lbs 28.95 183 lbs today Food insecurity not presently now service connected Pattern of eating throughout the day: four small meals, generally starting at late AM. Physical activity: Not much, limited by drop foot some yardwork Carbohydrate counting: feels generally comfortable with this. Episodes of hypoglycemia: yes, Hypoglycemia unawareness: no Neuropathy pain: from impinged nerve, no pain from diabetic neuropathy Last eye evaluation: 09/[address] Last nephropathy screen MICROALBUMIN January 04, 2024@13:53 URINE mALB/Cr: 15.4 mg/G 0 - 29.9 FindingsCREATININE-EGFR 03/28/24 10:32 0.94 01/04/24 13:53 0.98 09/22/23 09:59 0.92 Statin therapy: Jan 04 2024 CHOL 106 mg/dL <7 - 199 TRIG 119 mg/dL 0 - 150 HDL 45 mg/dL 40 - 60 LDL 37 mg/dL 0 - 55 CAD: Present On asa: yes emergency kit/glucose tabs: Glucagon n/a Active problems - Computerized Problem List [...] disease 17. Abdominal aortic aneurysm (SNOMED CT [id number]) 18. Localized osteoarthrosis 19. Sciatica 20. Primary [...] ACTIVE FOR DIABETES GLUCOSE SENSOR FREESTYLE REYES 3 USE 1 SENSOR DIRECTED ACTIVE EVERY 14 DAYS INSULIN,ASPART(EQV-NOVLG)100UN /ML FLXPEN INJECT INSULIN ACTIVE SUBCUTANEOUSLY THREE TIMES A DAY FOR DIABETES FOLLOWS: 1 UNIT PER 7 GM OF CARBS AT BREAKFAST, 1 UNIT PER 6 GM OF CARBS AT LUNCH, 1 UNIT PER 8 GM OF CARBS AT DINNER. INSULIN,GLARGINE-YFGN 100UNIT/ML PEN 3ML INJECT 21 UNITS ACTIVE SUBCUTANEOUSLY EVERY MORNING LEVOTHYROXINE NA (SYNTHROID) 175MCG TAB TAKE ONE TABLET BY ACTIVE MOUTH EVERY MORNING 30 MINUTES BEFORE BREAKFAST FOR THYROID - TAKE ON AN EMPTY STOMACH WITH A FULL GLASS OF WATER LIDOCAINE 5% OINT APPLY LIBERAL AMOUNT TOPICALLY TWICE ACTIVE DAILY NERVE PAIN NEEDLE,PEN 32G,4MM USE 1 NEEDLE SUBCUTANEOUSLY FOUR TIMES ACTIVE A DAY FOR USE WITH PEN DEVICE ONDANSETRON HCL 4MG TAB TAKE ONE TABLET BY MOUTH TWICE ACTIVE DAILY NEEDED FOR NAUSEA AND VOMITING TRANSPARENT DRESSING 2 3/8IN X 2 3/4IN APPLY 1 DRESSING ACTIVE TOPICALLY [id number] Non-VA ASPIRIN 81MG EC TAB 81MG BY [...] 50MG TAB 50MG BY MOUTH TWICE ACTIVE 25 mg bid DAILY Non-VA OTHER CAP/TAB BCG VARIABLE ACTIVE Non-VA OTHER CAP/TAB VIOCASE BY MOUTH THREE TIMES A DAY ACTIVE Non-VA WARFARIN (NON-VA) TAB DIRECTED BY MOUTH EVERY ACTIVE DAY SHX: as above ROS: No cough or fever PE: Affect pleasant appropriate Speaking easily in full sentences Feet pulses moderate decrease sensory to monofilament mild decrease LLE, normal RLE lesions no Medical Decision Making: Hyperparathyroidism Continue present medications. 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 First meal ICR 9, second meal second meal 7 evening meal 7 Work on building consistency into his meals. Carbohydrate targets 45-60 gm TID Blood sugar targets 80-130 premeal and 140-170 after Hemoglobin A1c Targets 7 Overweight no weight loss desired at this time Hypertension well controlled Hyperlipidemia well controlled Team follow up DM education lab BMP Hgba1c Insulin orders updated in cprs F/u three mos FTF Suicide Screen: C-SSRS Screening [place]-Suicide Severity Rating Scale (C-SSRS Screener) 1. Over the past month, have you wished you were or wished you could go to sleep and not wake up? No 2. Over the past month, have you had any actual thoughts of killing yourself? No 3. Over the past month, have you been thinking about how you might do this? Response not required due to responses to other questions. 4. Over the past month, have you had these thoughts and had some intention of acting on them? Response not required due to responses to other questions. 5. Over the past month, have you started to work out or worked out the details of how to kill yourself? Response not required due to responses to other questions. 6. If yes, at any time in the past month did you intend to carry out this plan? Response not required due to responses to other questions. 7. In your lifetime, have you ever done anything, started to do anything, or prepared to do anything to end your life (for example, collected pills, obtained a gun, gave away valuables, went to the roof but didn't jump)? No 8. If YES, was this within the past 3 months? Response not required due to responses to other questions. /odell ELLIS MD STAFF PHYSICIAN Signed: 04/20/2024 18:24 04/20/2024 ADDENDUM STATUS: COMPLETED Next visit flp bmp microalb hgba1c calcium vitamin D PTH free T4 TSH /odell ELLIS MD STAFF PHYSICIAN Signed: 04/20/2024 18:26 COMPA ELLIS [facility] [place] [facility]
--- OUTSIDE RECORDS SUMMARY | 2024-10-31 08:09 | XMS_ITS | Continuity of Care Document ---
Author Organization [facility] Address [address] [place] [id number] [facility] Name Relationship Address Phone KING RUSSO child Unknown Unavailabl YUNIEL Jorgensen spouse Unknown Unavailable ALICE RUSSO Personal Relationship Unknown Un available GIVEN, NONE Other Unknown Unavailable DIONICIO RUSSO child Unknown Unavailable ALEJANDRO RUSSO child Unknown Unavailable Care Team Providers Care Events Administrative Assistant Name Role Phone Deyvi Brantley MD Primary Care Physician Encounter [facility] Date(s): 09/11/24 - 10/11/24 [facility] [address] [place] [id number] Attending Physician: [id number] Admitting Physician: Admtr, ArHernando Referring Physician: Admtr, [id number] Encounter Type: Triage Allergies, Adverse Reactions, Alerts [...] fluoride-potassium nitrate 1.1%-5% topical paste 3 Refill(s), [place] teeth for 2 minutes, morning and night. [...] 3:04:00 PM EST, Route to Pharmacy Electronically, [id number], Partial fill upon patient request if the [...] tablet,3 Refills, Maintenance, 05/15/24 8:44:00 AM EDT, [id number], Partial fill upon patient request if the [...] Team Personnel Name: Neena Christian RN Position: [facility] RN Member Role: Primary Care Nurse Name: Deyvi Brantley MD Position: [facility] Outreach Member Role: PCP Address: [address] [place], [place] [address] Telecom: Name: [address] RN Position: S RN Member Role: Primary Care Nurse Name: Rafia Murray RN Position: S RN Member Role: Primary Care Nurse Name: Constantino Sparks RN Position: S RN Member Role: Primary Care Nurse Name: Jaycee Liao RN Position: [facility] RN Member Role: Primary Care Nurse Care [...]
--- OUTSIDE RECORDS SUMMARY | 2024-10-31 08:09 | XMS_ITS | Encounter Summary ---
Author Name [facility] Organization [facility] [place] Address [address] [place] [address] Care Team Providers Care Assistant Office Manager Name Role Phone BAINFRANCISCO Primary Care Provider Unavaila ble Insurance Providers: [...] SUPPLEMEN YAMILKA MEDEX 2 Apr 29, 2020 [id number] [phone] ALICE TERRY BS [place] SUPPLEMEN YAMILKA MEDEX 2 Apr 29, 2020 [id number] ALICE TERRY BS [facility] CE ORGANIZ [facility] SHARE ACTIV E Feb 27, 2012 [id number] ALICE TERRY PATIENT [employer] ([id number]) PRESCRIPT ION L4TA* Feb 27, 2012 L4TA [id number] ALICE TERRY PATIENT [employer] ([id number]) PRESCRIPT ION Feb 27, 2012 L4TA [id number] ALICE TERRY PATIENT MEDICARE (WNR) MEDICARE (M) PART B Apr 29, 2020 PART B [id number] ALICE TERRY PATIENT MEDICARE (WNR) MEDICARE (M) PART A Apr 29, 2020 PART A [id number] ALICE TERRY PATIENT MEDICARE (WNR) MEDICARE (M) PART A Apr 29, 2020 PART A [id number] [phone] ALICE TERRY PATIENT MEDICARE (WNR) MEDICARE (M) PART B Apr 29, 2020 PART B [id number] [phone] ALICE TERRY PATIENT Selected Encounter This section includes the information on record at [place] for the Encounter. Date/Time Encounter Type Encounter Description Reason Provider Source Sep 06, 2024 03:00 PM DIAB MANAGE TRN PER [facility] DIABETES [facility]INIC ICD-10-CM E08.9 Diabetes due to underlying condition w/o complications SHYLA GUERRA [facility] Encounter Template Text not used by ME Assessments - Encounter Diagnoses This section includes the primary and secondary diagnoses documented for the Encounter. 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 Sep 26, 2024 09:30 AM AMBULATORY - MEDICINE [facility] [place] [facility] Oct 10, 2024 08:30 AM AMBULATORY - MEDICINE [facility] [place] [facility] Oct 23, 2024 03:00 PM AMBULATORY - NONE [facility] [place] [facility] Oct 23, 2024 03:15 PM AMBULATORY - MEDICINE [facility] [place] [facility] Oct 23, 2024 03:30 PM AMBULATORY - MEDICINE [facility] [place] [facility] Nov 30, 2024 09:30 AM AMBULATORY - NONE [facility] [place] [facility] Dec 24, 2024 08:00 AM AMBULATORY - MEDICINE [facility] [place] [facility] Dec 24, 2024 09:30 AM AMBULATORY - MEDICINE [facility] [place] [facility] January 07, 2025 09:00 AM AMBULATORY - MEDICINE [facility] [place] [facility] January 24, 2025 08:30 AM AMBULATORY - MEDICINE [facility] Lab Results: +/- 30 [...] Range Comment Sep 20, 2024 08:58 AM [facility] HEMOGLOBIN A1C PANEL Specimen Type: BLOOD [...] Jul 02, 2024 11:06 AM Reporting [facility]: [facility] [address] [address] Performing Lab: [facility] [address] [address] HEMOGLOBIN A1C 6.5 H 4.0-5.6 Sep 20, 2024 08:58 AM [facility] BASIC METABOLIC PANEL (non-fasting) Specimen Type: SERUM No comment entered. Ordering Provider: COMPA ELLIS Report Released Date/Time: Jul 02, 2024 11:06 AM Reporting Lab: [facility] [address] [address] Performing Lab: [facility] [address] [facility] [address] UREA NITROGEN 9 mg/dL 7-25 GLUCOSE 170 mg/dL H 65-100 SODIUM 138 mmol/L 135-145 POTASSIUM 3.9 mmol/L 3.5-5.0 CHLORIDE 104 mmol/L 100-110 CO2 24 meq/L 20-30 CREATININE, Serum 0.85 mg/dL 0.50-1.40 eGFR(CKD-EPI 2020) >90 mL/min >60 Sep 20, 2024 08:58 AM [facility] CALCIUM Specimen Type: SERUM No comment entered. Ordering Provider: COMPA ELLIS Report Released Date/Time: Jul 02, 2024 11:06 AM Reporting Lab: [facility] [address] [address] Performing Lab: [address] [address] CALCIUM 9.0 mg/dL 8.5-10.2 Sep 20, 2024 08:58 AM [facility] VITAMIN D (25-OH) Specimen Type: SERUM No comment entered. Ordering Provider: COMPA ELLIS Report Released Date/Time: Jul 02, 2024 11:06 AM Reporting Lab: [address] [address] Performing Lab: [address] [address] VITAMIN D (25-OH) 30 ng/mL 20-50 Social History: Smoking Status (Most current) and [...] Date/Time Current Smoking Status Comment Facil ity Aug 01, 2023 01:30 PM ME-TOBACCO USER EVERY DAY [place] Tobacco Use History This section includes a history of the smoking, or tobacco-related health factors, that were collected on or before the date of the Encounter. The data comes from the [place] facility where the Encounter took place. Date/Time Smoking Status/Tobacco Use Comment F acility Aug 01, 2023 01:30 PM VA-TOBACCO USE ADVICE [place] Aug 01, 2023 01:30 PM VA-TOBACCO USE PRECISION GRINDER EXTERNAL NO [place] Aug 01, 2023 01:30 PM VA-TOBACCO USE MED NO [place] Aug 01, 2023 01:30 PM VA-TOBACCO USE WI 30 MIN OF WAKE UP [place] Aug 01, 2023 01:30 PM VA-TOBACCO USER EVERY DAY [place] Sep 15, 2021 10:00 AM VA-TOBACCO DOESNT USE WI 30 MIN WAKEUP [place] Sep 15, 2021 10:00 AM VA-TOBACCO USE 30 YEARS OR MORE [place] Sep 15, 2021 10:00 AM VA-TOBACCO USE ADVICE [place] Sep 15, 2021 10:00 AM VA-TOBACCO USE PRECISION GRINDER EXTERNAL NO [place] Sep 15, 2021 10:00 AM VA-TOBACCO USE MED NO [place] Sep 15, 2021 10:00 AM VA-TOBACCO USER EVERY DAY [place] May 02, 2019 03:54 PM VA-TOBACCO DOESNT USE WI 30 MIN WAKEUP [place] May 02, 2019 03:54 PM VA-TOBACCO USE 30 YEARS OR MORE [place] May 02, 2019 03:54 PM VA-TOBACCO USE ADVICE [place] May 02, 2019 03:54 PM VA-TOBACCO USE PRECISION GRINDER EXTERNAL NO [place] May 02, 2019 03:54 PM VA-TOBACCO USE MED NO [place] May 02, 2019 03:54 PM VA-TOBACCO USER SOME DAYS [place] January 25, 2018 11:23 AM QUIT TOBACCO USE IN PAST Y EAR QUIT 08/19/17 [place] Apr 04, 2017 10:16 AM CURRENT SMOKER 1.5 PACK A DAY [place] Apr 04, 2017 10:16 AM V1-PT DECLINES REF TO TOBACCO CESS PRGM [place] Apr 04, 2017 10:16 AM V1-PT DECLINES TOB ACCO CESSATION MEDS [place] Apr 04, 2017 10:16 AM V1-PT READY TO QUIT TOBACCO USE [place] Aug 13, 2016 01:21 PM CURRENT SMOKER [facility]I [facility] Aug 13, 2016 01:21 PM V1-PT NOT INTEREST ED IN QUIT TOBACCO USE [place] Encounter Notes: All associated encounter notes This section contains the clinical notes associated to the Encounter. Date/Time Encounter Note(s) Provider Source Sep 06, 2024 04:11 PM DIABETOLOGY NOTE: LOCAL TITLE: INSULIN PUMP/CGM DOWNLOAD (T) STANDARD TITLE: DIABETOLOGY NOTE DATE OF NOTE: SEP 06, 2024@16:11 ENTRY DATE: SEP 06, 2024@16:11:44 AUTHOR: MIRNA GUERRA EXP COSIGNER: URGENCY: STATUS: COMPLETED Please select: Personal Continuous Glucose Monitor Date of Documentation:Aug Please see attached scanned document in [employer]. 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 Sensor: Sanya 3 /es/ MIRNA GUERRA, RN,BSN, [facility] DIABETES FURNISHINGS CONSERVATOR, RN Signed: 09/06/2024 16:19 MIRNA GUERRA [place] Sep 06, 2024 01:41 PM DIABETOLOGY EDUCAT ION NOTE: LOCAL TITLE: DIABETES EDU FOLLOW UP STANDARD TITLE: DIABETOLOGY EDUCATION NOTE DATE OF NOTE: SEP 06, 2024@13:41 ENTRY DATE: SEP 06, 2024@13:42:24 AUTHOR: MIRNA GUERRA EXP COSIGNER: URGENCY: STATUS: COMPLETED FOLLOW UP DIABETES EDUCATION VISIT Demographics: Patient Name: ALICE TERRY Age: 69 Sex: MALE Race: WHITE MARITAL STATUS - Introduction: [place] identified with 2 identifiers: [X] Full Name [X] Date of [ ] Address [ ] ME ID Card PATIENT PHONE - PHONE NUMBER [CELLULAR] - Is patient phone number correct, if not, enter below: [place]'s phone number: ALICE TERRY [address] [place], [place], [address] MOST RECENT LABS: HEMOGLOBIN A1C TREND Collection DT Spec HGBA1c 06/25/2024 10:14 BLOOD 6.3 H 03/28/2024 10:32 BLOOD 7.3 H 01/04/2024 13:53 BLOOD 7.4 H 09/22/2023 09:59 BLOOD 7.0 H 05/31/2023 12:14 BLOOD 7.0 H CHEM 7 TREND LAB CUMULATIVE SELECTED Collection DT Spec GLUCOSE BUN CREATIN Sodium K+/Pot CL CO2 06/25/2024 10:14 SERUM 166 H 9 1.00 137 3.8 103 23 03/28/2024 10:32 SERUM 107 H 12 0.94 139 3.9 107 24 01/04/2024 13:53 SERUM 197 H 18 0.98 137 4.4 107 23 09/22/2023 09:59 SERUM 183 H 12 0.92 139 4.4 104 22 05/31/2023 12:14 SERUM 154 H 19 0.90 139 3.9 108 23 LAB CUMULATIVE SELECTED 2 No selection items chosen for this component. CHEM 7 Results Collection DT Spec Sodium K+/Pot CL CO2 GLUCOSE BUN 06/25/2024 10:14 SERUM 137 3.8 103 23 166 H 9 03/28/2024 10:32 SERUM 139 3.9 107 24 107 H 12 01/04/2024 13:53 SERUM 137 4.4 107 23 197 H 18 09/22/2023 09:59 SERUM 139 4.4 104 22 183 H 12 05/31/2023 12:14 SERUM 139 3.9 108 23 154 H 19 02/23/2023 09:18 SERUM 138 4.8 104 24 110 H 17 11/22/2022 11:03 SERUM 139 4.6 102 25 170 H 12 10/14/2022 10:27 SERUM 138 3.5 103 22 167 H 10 08/04/2022 12:45 SERUM 136 4.0 104 25 124 H 13 05/12/2022 09:59 SERUM 140 4.0 103 26 149 H 14 02/18/2022 08:40 SERUM 135 4.6 101 24 196 H 19 02/01/2022 12:07 SERUM 138 3.6 104 22 150 H 21 01/18/2022 12:01 SERUM 138 4.0 103 23 124 H 16 09/08/2020 11:00 SERUM 137 4.0 101 26 156 H 12 05/15/2020 15:33 SERUM 137 3.9 98 L 28 323 H 10 02/25/2020 09:57 SERUM 140 3.9 104 27 73 9 01/31/2020 13:18 SERUM 137 3.8 101 26 274 H 14 09/07/2019 09:34 SERUM 138 5.0 102 30 230 H 8 04/16/2019 12:35 SERUM 136 4.3 103 27 184 H 9 01/16/2019 12:11 SERUM 137 4.3 107 18 L 218 H 14 07/11/2018 10:25 SERUM 231 H 03/30/2018 09:07 SERUM 139 5.2 H 100 26 258 H 15 01/27/2018 09:16 SERUM 282 H 03/30/2017 10:12 SERUM 135 4.2 101 26 200 H 9 10/14/2016 08:43 SERUM 137 5.2 H 103 26 308 H 13 LIPID PANEL TREND Collection DT Spec CHOL HDL CHO/HDL LDL-c TRIG 06/25/2024 10:14 SERUM 95 47 2.0 30 91 01/04/2024 13:53 SERUM 106 45 2.4 37 119 09/22/2023 09:59 SERUM 126 53 2.4 57 79 02/23/2023 09:18 SERUM 128 51 2.5 59 91 01/18/2022 12:01 SERUM 124 50 2.5 56 90 CREATININE-EGFR 06/25/24 10:14 1.00 03/28/24 10:32 0.94 01/04/24 13:53 0.98 EGFR - NONE FOUND WEIGHT: 173 lb [78.47 kg] (07/02/2024 10:43) HEIGHT: 68 in [172.7 cm] (06/27/2024 10:53) BMI: 26.4 REASON FOR EDUCATION VISIT TODAY: 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 History of EPI (Endocrine Pancreatic Insufficiency), gastroparesis, fem-pop bypass surgery in July at [facility]. Diagnosed with diabetes in June 2016. Has Chronic/Acute pancreatitis, treated by Dr. Pan in [place] ([facility]) and Dr. Mendoza in [place]. Has sensor connected to his cell phone. Using the [email or web address] sensor. 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 NAME OF REFERRING PROVIDER: Dr. Ellis Source of referral/primary care provider: Inpatient (X) Outpatient On a scale of 1 to 10 with one being not confident and ten being very confident. How confident are you about being successful managing your diabetes? 3-4 On a scale of 1 to 10 with one being not important and ten being very important. How important is diabetes management to you? 9-10 PROBLEMS Active problems - Computerized Problem List is [...] disease 17. Abdominal aortic aneurysm (SNOMED CT [id number]) 18. Localized osteoarthrosis 19. Sciatica 20. Primary Care Physician 21. Cervical radiculopathy 22. Hypothyroidism ALLERGIES:METFORMIN Living arrangements: X Alone- has a Croatian Salazar (Josesito- 9 years old) Spouse Family Friend Support system Diabetes health history: 60 Years old at diagnosis Type of diabetes: Diagnosed as 3C diabetes, pancreas is really calcified. Tries to keep diet below 30 grams of fat per day. 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 Marijuana- yes, twice a day, based on nausea and to help him sleep at night Other None DIABETES SELF MANAGEMENT DIET: (EAT WISELY) In the last 12 months, were there times when food did not last and there was no money to buy more? Yes, he is better now. Breakfast 8 am: has a hard time with nausea in the morning, he may split a donut with his dog. Skips breakfast often and may eat this meal only 2x/week. Lunch 10am -3 pm: Sometimes nothing, may eat at sisters (turkey sandwich); saltines with peanut butter Dinner: 7 pm- turkey color grinder, turkey Luke or food from [employer] (admits he has too many): He does not keep chips or cookies in his house, may have Oreos at sister's house or saltines. Beverages consumed: Goal weight desired: His weight is 180 lbs, wants to be at this weight. SLEEP Typical sleep pattern: Not sleeping well due to having pain from leg surgery (fem-pop bypass) Bedtime: 10 pm Waketime: 8-8:30 am Naps: Taking at least 2 naps per day. Still getting 9-10 hours per day. Comments: PHYSICAL ACTIVITY Type: Not particularly active due to bowl obstruction and leg surgery (Apr- July 2024) Frequency: Duration: Limitations: Pinched nerve in the left knee. Has drop foot on the left side, wears a brace. Has a lot of vascular problems in both legs. Bypass on right leg and stents placed from iliac to this left leg. Has aortic aneurysm and the vessels (mesenteric). Had 11 ultrasounds DIABETES MEDICATIONS Glargine 19 units between 7-9 pm. Novolog before meals, 3x/day Before Breakfast: 3 units (will skip if not eating) Only eating 2x/week Before Lunch: 1 unit per 8 grams of carbs (8-9 units) Before Dinner: 1 unit per 7 grams of carbs (8 units) Empagliflozin 25 mg once a day. STORAGE OF INSULIN/OTHER INJECTABLES: INJECTIONS SITES: SITES VIEWED: ANY EVIDENCE OF LIPOHYPERTROPHY History of hypoglycemia: Reports he is having them 2x/week. He will have symptoms within 5-10 minutes after the alerting of the sensor. Frequency: Reports they are happening every night. Typical treatment: orange juice or glucose tablets Not wearing Medical ID bracelet- [facility] one with [facility]. MONITORING Download of sensor from cell phone reveals: We could download the data from [place]: Name: Alice terry Date of : 1955 Report Period: 08/10/2024 - 09/06/2024 (28 days) Generated: 09/06/2024 Time CGM Active: 87% Glucose Statistics and Targets Average Glucose: 184 mg/dL Glucose Management Indicator (GMI): 7.7% Glucose Variability (%CV): 36.5% Target Range: 70 - 180 mg/dL Time in Ranges Very High: >250 mg/dL --- 18% High: 181 - 250 mg/dL --- 28% Target Range: 70 - 180 mg/dL --- 52% Low: 54 - 69 mg/dL --- 2% Very Low: <54 mg/dL --- 0% The main pattern noted are elevated glucose between the hours of 7 am until 8 pm. However, he is also having a pattern of hypoglycemia between the hours of 10:30 pm until 4 am. Sensor Glucose What is your Time in Range (TIR) target? What is your target A1c? Diabetes related illnesses or hospitalizations in the past year? Comments: DIABETES DISTRESS: Review at next visit DIABETIC-RELATED CHRONIC COMPLICATIONS Has nausea and constipation due to pancreatitis. Has EPI (Endocrine Pancreatic insufficiency); Has gastroparesis. EYES: Review at next visit Comments: KIDNEYS: Review at next visit Comments: FEET/LEGS/SKIN: Seeing [facility] for legs. Seeing Dr. Quinn for podiatry. Has numbness and tingling in his toes. Has a pinch nerve in his leg, he also has vascular problems in his legs. Has US every 6 months. Comments: CARDIOVASCULAR/CEREBROVASCULAR: Comments: OTHER MEDICAL CONCERNS: Bowel obstruction on birthday in April of 2024. Went to [facility], had Fem-pop bypass surgery on Aug.02 at [facility]. Cystoscopy scheduled next week to check bladder cancer. 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 Prior diabetes education: SMART GOALS HEALTH GOAL #1: Decrease the Glargine insulin to 18 units from 19 units and increase the Novolog by 1 unit at each meal to help with the high blood sugars. In order to meet this goal, I will: HEALTH GOAL #2: In order to meet this goal, I will: Clinical or Quality of Life outcome baseline: ASSESSMENT: Kindly referred by Dr. Ellis. [place] reports he is currently seeing Endocrine every 3 months and was told he should see diabetes education as well. He is wearing a sensor that he is now connected with to his cell phone. He is also connected to the [place] [employer] account. Last A1C was 6.3% in May. He admits that he does not feel hyperglycemia, however, he is scare to of hypoglycemia based on how he feels. He was encouraged to drop his Glargine insulin to 18 units due to hypoglycemia overnight. He had a pattern of hypoglycemia during the night that was waking him up. Due to his higher blood sugars with all of his meals, he was encouraged to increased his Novolog by 1-2 units at each meal. He has already increased lunch and dinner to 8-9 units from 6 units. He admits he might not be counting his carbohydrate accurately and we reviewed how to read a food label so he knows how to measure his food by weight. He admits he does not think he is going to be weighing his food often. He also gets a lot of take-out food and believes this is also a problem for his blood sugars. We did not discuss pump therapy at this visit. Will evaluate 's interest in pump therapy at next visit to see if he wants to pursue it. [place] is scheduled to see Dr. Ellis in September and will follow up with Diabetes Education in November. Learning limitations/special education needs: None Barriers to learning: Visual Auditory Literacy Language X None Cultural influences: None Health beliefs/attitudes/feelings about diabetes: None Readiness to learn: Already very knowledgeable. Will significant other participate in program? No _ TEACHING MATERIALS GIVEN: _ EDUCATION: -Reviewed importance of download data from sensor shop superintendent. -Reviewed blood sugar patterns with previous sensor data. -Reviewed adjusting the Glargine insulin -Reviewed adjusting the Novolog insulin. -Reviewed reading food labels and weight food. Instructions: -Continue to check glucose with Sanya 3 sensor. -Decrease Glargine to 18 units once a day. -Increase Novolog before meals (3x/day): Before Breakfast: 3 units Before Lunch: 10 units Before Dinner: 10 units -Continue Empagliflozin 25 mg once a day. -Please call with any questions or concerns. -Please follow up with Dr. Ellis in September and Diabetes Education in November. Patient/Family Verbalized Understanding FUTURE APPOINTMENTS: 09/06/2024 15:00 CWM/SO/DIABETES EDU1 09/20/2024 08:30 CWM/SO/PODIATRY/ROSS 10/03/2024 14:00 NHM/ENDOCRINE 10/23/2024 15:30 NHM/OPTOMETRY/MEETA 12/24/2024 09:30 CWM/NO/PACT 7 DM type is : Diabetes Mellitus due to pancreatitis Length of Visit: 60 minutes /samara/ MIRNA GUERRA, RN,BSN, [facility] DIABETES FURNISHINGS CONSERVATOR, RN Signed: 09/06/2024 16:11 Receipt Acknowledged By: 09/07/2024 18:56 /es/ COMPA ELLIS MD STAFF PHYSICIAN 09/07/2024 06:56 /es/ Francisco Bain DNP, APPLICATIONS ENGINEER MANUFACTURING-BC, CNL Primary Care Nurse Practitioner MIRNA GUERRA [place]
--- OUTSIDE RECORDS SUMMARY | 2024-10-31 08:09 | XMS_ITS | Encounter Summary ---
Author Name [facility] Organization [facility] Address [address] [place] [address] Care Team Providers Care Home Companion Name Role Phone ELIASMARICEL Primary Care Provider [...] SUPPLEMEN YAMILKA MEDEX 2 Apr 29, 2020 [id number] ALICE RUSSO BS [place] MEDICARE SUPPLEMEN YAMILKA MEDEX 2 Apr 29, 2020 [id number] ALICE RUSSO BS [facility] CE ORGANIZ [facility] SHARE ACTIV E Feb 27, 2012 [id number] [phone] ALICE RUSSO PATIENT [facility] ([id number]) PRESCRIPT ION L4TA* Feb 27, 2012 [id number] ALICE RUSSO PATIENT [employer] ([id number]) PRESCRIPT ION Feb 27, 2012 [id number] [phone] ALICE RUSSO PATIENT MEDICARE (WNR) MEDICARE (M) PART B Apr 29, 2020 PART B [id number] ALICE RUSSO PATIENT MEDICARE (WNR) MEDICARE (M) PART A Apr 29, 2020 PART A [id number] ALICE RUSSO PATIENT MEDICARE (WNR) MEDICARE (M) PART A Apr 29, 2020 PART A [id number] [phone] ALICE RUSSO PATIENT MEDICARE (WNR) MEDICARE (M) PART B Apr 29, 2020 PART B [id number] [phone] ALICE RUSSO PATIENT Selected Encounter This section includes the information on record at MD for the Encounter. 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 MIRNA GUERRA [place] Plan of Treatment: Future Appointments (+ 6 [...] 27, 2024 11:00 AM AMBULATORY - MEDICINE [place] [facility] [place] [facility] Jul 02, 2024 10:30 AM AMBULATORY - MEDICINE [place] [facility] [place] [facility] Jul 04, 2024 09:00 AM AMBULATORY - MEDICINE [place] [facility] [place] [facility] Sep 06, 2024 03:00 PM AMBULATORY - MED[facility]INE [facility] Sep 20, 2024 08:30 AM AMBULATORY - MED[facility]INE [facility] Sep 26, 2024 09:30 AM AMBULATORY - MEDICINE [facility] [place] [facility] Oct 10, 2024 08:30 AM AMBULATORY - MEDICINE [facility] [place] [facility] Oct 23, 2024 03:00 PM AMBULATORY - NONE [facility] [place] [facility] Oct 23, 2024 03:15 PM AMBULATORY - MEDICINE [facility] [place] [facility] Oct 23, 2024 03:30 PM AMBULATORY - MEDICINE [facility] [place] [facility] Social History: Smoking Status (Most current) [...] place. Date/Time Current Smoking Status Comment Facil [facility] Aug 01, 2023 01:30 PM VA-TOBACCO USER EVERY DAY [place] Tobacco Use History This section includes a history of the smoking, or tobacco-related health factors, that were collected on or before the date of the Encounter. The data comes from the MD facility where the Encounter took place. Date/Time Smoking Status/Tobacco Use Comment F acility Aug 01, 2023 01:30 PM VA-TOBACCO USE ADVICE [place] Aug 01, 2023 01:30 PM VA-TOBACCO USE EVENTS INTERN NO [place] Aug 01, 2023 01:30 PM VA-TOBACCO USE MED [facility] Aug 01, 2023 01:30 PM VA-TOBACCO USE WI 30 MIN OF WAKE UP [place] Aug 01, 2023 01:30 PM VA-TOBACCO USER EVERY DAY [place] Sep 15, 2021 10:00 AM VA-TOBACCO DOESNT USE WI 30 MIN WAKEUP [place] Sep 15, 2021 10:00 AM VA-TOBACCO USE 30 YEARS OR MORE [place] Sep 15, 2021 10:00 AM VA-TOBACCO USE ADVICE [place] Sep 15, 2021 10:00 AM VA-TOBACCO USE EVENTS INTERN NO [place] Sep 15, 2021 10:00 AM VA-TOBACCO USE MED [facility] Sep 15, 2021 10:00 AM VA-TOBACCO USER EVERY DAY [place] May 02, 2019 03:54 PM VA-TOBACCO DOESNT USE WI 30 MIN WAKEUP [place] May 02, 2019 03:54 PM VA-TOBACCO USE 30 YEARS OR MORE [place] May 02, 2019 03:54 PM VA-TOBACCO USE ADVICE [place] May 02, 2019 03:54 PM VA-TOBACCO USE EVENTS INTERN NO [place] May 02, 2019 03:54 PM VA-TOBACCO USE MED NO [place] May 02, 2019 03:54 PM VA-TOBACCO USER SOME DAYS [place] January 25, 2018 11:23 AM QUIT TOBACCO USE IN PAST Y EAR QUIT 08/19/17 [place] Apr 04, 2017 10:16 AM CURRENT SMOKER 1.5 PACK A DAY [place] Apr 04, 2017 10:16 AM V1-PT DECLINES REF TO TOBACCO CESS PRGM [place] Apr 04, 2017 10:16 AM V1-PT DECLINES TOB ACCO CESSATION MEDS [place] Apr 04, 2017 10:16 AM V1-PT READY TO QUIT TOBACCO USE [place] Aug 13, 2016 01:[address] [facility] Aug 13, 2016 01:21 PM V1-PT NOT INTEREST ED IN QUIT TOBACCO USE [place] Encounter Notes: All associated encounter notes This section contains the clinical notes associated to the Encounter. Date/Time Encounter Note(s) Provider Source May 03, 2024 02:41 PM DIABETOLOGY EDUCAT ION NOTE: LOCAL TITLE: DIABETES EDU FOLLOW UP STANDARD TITLE: DIABETOLOGY EDUCATION NOTE DATE OF NOTE: MAY 03, 2024@14:41 ENTRY DATE: MAY 03, 2024@14:42:02 AUTHOR: MIRNA GEURRA COSIGNER: URGENCY: STATUS: COMPLETED DIABETES EDUCATION DOCUMENTATION DIABETES SELF-MANAGEMENT EDUCATION AND SUPPORT (DSMES) PROGRAM Intake Assessment MAY 03, 2024 __ INTRODUCTION [place] identified with 2 identifiers: (X)Full Name (X)Date of () Other: Demographics: Patient Name: ALICE RUSSO :Apr Age: 68 Sex: MALE Race: WHITE MARITAL STATUS - No prior language recorded Contact info: [address] [place], [place] [address] PATIENT PHONE - [phone] COMBAT SERVICE INDICATED: No PERIOD OF SERVICE - [place] ERA DS - Disabilities Eligibility: SC LESS THAN 50% VERIFIED Total S/C %: 40 LABYRINTHITIS 30% S/C TINNITUS 10% S/C IMPAIRED HEARING 0% S/C Primary NOK: YUNIEL RUSSO Relation: [address] [place], [place] [address] consented for any other persons present for visit: If yes, who and relationship to patient: REASON FOR EDUCATION VISIT TODAY: 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 Forgot to bring sensor chute boss, using the Sanya 3 sensor. Not currently wearing one. Diagnosed with diabetes in June 2016. NAME OF REFERRING PROVIDER: Dr. Ellis Source [...] important is diabetes management to you? 9-10 VITALS Blood pressure:120/74 (04/02/2024 08:57) Heart rate:80 (04/02/2024 08:57) Respirations: 18 (04/02/2024 08:57) Temperature: 98 F [36.7 C] (04/02/2024 08:57) Oxygen saturation: Pulse Oximetry VITAL SIGNS SELECTED Measurement DT POx (L/MIN)(%) 04/02/2024 08:57 97 Pain: 5 (04/02/2024 08:57) WEIGHT: 183.2 lb [83.10 kg] (04/02/2024 08:57) HEIGHT: 68 in [172.7 cm] (01/05/2024 10:18) BMI: 27.9 LABS HEMOGLOBIN A1C TREND Collection DT Spec HGBA1c 03/28/2024 10:32 BLOOD 7.3 H 01/04/2024 13:53 BLOOD 7.4 H 09/22/2023 09:59 BLOOD 7.0 H 05/31/2023 12:14 BLOOD 7.0 H 02/23/2023 09:18 BLOOD 6.8 H CHEM 7 TREND LAB CUMULATIVE SELECTED Collection DT Spec GLUCOSE BUN CREATIN Sodium K+/Pot CL CO2 03/28/2024 10:32 SERUM 107 H 12 0.94 139 3.9 107 24 01/04/2024 13:53 SERUM 197 H 18 0.98 137 4.4 107 23 09/22/2023 09:59 SERUM 183 H 12 0.92 139 4.4 104 22 05/31/2023 12:14 SERUM 154 H 19 0.90 139 3.9 108 23 02/23/2023 09:18 SERUM 110 H 17 1.00 138 4.8 104 24 LAB CUMULATIVE SELECTED 2 No selection items chosen for this component. CHEM 7 Results Collection DT Spec Sodium K+/Pot CL CO2 GLUCOSE BUN 03/28/2024 10:32 SERUM 139 3.9 107 24 [...] DT Spec CHOL HDL CHO/HDL LDL-c TRIG 01/04/2024 13:53 SERUM 106 45 2.4 37 119 09/22/2023 09:59 SERUM 126 53 2.4 57 79 02/23/2023 09:18 SERUM 128 51 2.5 59 91 01/18/2022 12:01 SERUM 124 50 2.5 56 90 09/08/2020 11:00 SERUM 126 61 H 2.1 55 49 CREATININE-EGFR 03/28/24 10:32 0.94 01/04/24 13:53 0.98 09/22/23 09:59 0.92 EGFR - NONE FOUND PROBLEMS Active problems - Computerized Problem List [...] disease 17. Abdominal aortic aneurysm (SNOMED CT [id number]) 18. Localized osteoarthrosis 19. Sciatica 20. Primary Care Physician 21. Cervical radiculopathy 22. 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 Tries to keep diet below 30 grams of fat per day. Type 1 Type 2 PRE diabetes Substance use: Cigarettes- Yes, working on it [...] buy more? Yes, he is better now. Breakfast: has a hard time with nausea in the morning, he may split a donut with his dog. 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 Beverages consumed: Goal weight desired: His weight is 180 lbs, wants to be at this weight. SLEEP Typical sleep pattern: Reports he sleeps well Bedtime: 10 pm Waketime: 7-8 am Naps: Taking at least 2 naps per day. Still getting 9-10 hours per day. Comments: PHYSICAL ACTIVITY Type: yard work, indoor or outdoor house maintenance. Frequency: Duration: Limitations: Pinched nerve in the left knee. Has drop foot on the left side, wears a brace. Has a lot of vascular problems in both legs. Bypass on right leg and stents placed from iliac to this left leg. Has aortic aneurysm and the vessels (mesenteric). Had 11 ultrasounds DIABETES MEDICATIONS Glargine 21 units at bedtime. Novolog before meals, 3x/day Before Breakfast: 3 units (set dose) Before Lunch: 1 unit per 8 grams of carbs (6 units) Before Dinner: 1 unit per 7 grams of carbs (6 units) Empagliflozin 25 mg once a day. STORAGE OF INSULIN/OTHER INJECTABLES: INJECTIONS SITES: SITES VIEWED: ANY EVIDENCE OF LIPOHYPERTROPHY History of hypoglycemia: It can drop quick at night and it will wake him up. His meter is set at 70 mg/dl and Frequency: Reports they are happening every night. Typical treatment: orange juice or glucose tablets MONITORING Has a Sanya 3 sensor, however, he did not bring his sensor chute boss. Reviewed the March sensor download just for educational purposes, however, did not adjust insulin based on the patterns in March because it has been a full month since that last download. How often do you test your glucose? How often would you like to be testing your glucose? What is your target glucose? Sensor Glucose What is your Time in Range (TIR) target? What is your target A1c? Diabetes related illnesses or hospitalizations in the past year? 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 Continue to wear it to monitor blood sugars. In order to meet this goal, I will: HEALTH GOAL #2: In order to meet this goal, I will: Clinical or Quality of Life outcome baseline: ASSESSMENT: Kindly referred by Dr. Ellis. Crowley reports he is currently seeing Endocrine every 3 months and was told he should see diabetes education as well. He is wearing a sensor, however, we were unable to review the sensor download. We reviewed sensor download from his previous visit and appears to be doing well with 62% in target range. 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 He reports he is taking 21 units at bedtime. Crowley's last A1C was 7.3% in February. He reports he was trying to prepare for an insulin pump before COVID started and then stopped when COVID started. We discussed if he was interested in pump therapy and he appears to be. Therefore, we can plan to discuss it more with him in the future at future diabetes education appointments. Encouraged Crowley to please bring sensor chute boss for us to download at next visit. Follow up with Endocrine in June and follow up with Diabetes Education in July. Learning limitations/special education needs: None Barriers to learning: Visual Auditory Literacy Language X None Cultural influences: None Health beliefs/attitudes/feelings about diabetes: None Readiness to learn: Already very knowledgeable. Will significant other participate in program? No _ TEACHING MATERIALS GIVEN: _ EDUCATION: -Reviewed importance of download data from sensor chute boss. -Reviewed blood sugar patterns with previous sensor data. -Reviewed adjusting the Glargine insulin Instructions: -Please bring sensor to next appointment for download. -Drop dose of Glargine down to 19 or 20 units if having low glucose in the snack bar cook hours every day. -Continue current diabetes medications: Novolog before meals, 3x/day Before Breakfast: 3 units (set dose) Before Lunch: 1 unit per 8 grams of carbs (6 units) Before Dinner: 1 unit per 7 grams of carbs (6 units) Empagliflozin 25 mg once a day. -Please call with any questions or concerns. -Please follow up with Dr. Ellis in June and Diabetes Education in July. 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 DIABETES TEMPERING KILN TENDER, RN Signed: 05/03/2024 16:36 Receipt Acknowledged By: 05/03/2024 19:46 /es/ COMPA ELLIS MD STAFF PHYSICIAN 05/04/2024 05:24 /es/ ERIC MCINTOSH MD Primary Care Physician MIRNA GUERRAFIELD
--- OUTSIDE RECORDS SUMMARY | 2024-10-31 08:09 | XMS_ITS | Encounter Summary ---
Author Name [facility] [place] [facility] [place] [facility] [place] Address [address] [place] [id number] Care Team Providers Care Wrapping Clerk Name Role Phone MARICEL ELIAS Primary Care [...] SUPPLEMEN YAMILKA MEDEX 2 Apr 29, 2020 [id number] [phone] ALICE RUSSO PATIENT BCBS MD MEDICARE SUPPLEMEN YAMILKA MEDEX 2 Apr 29, 2020 [id number] ALICE RUSSO PATIENT BCBS FORMERLY [facility] CE ORGANIZ [facility] SHARE ACTIV E Feb 27, 2012 [id number] ALICE RUSSO PATIENT [employer] ([id number]) PRESCRIPT ION L4TA* Feb 27, 2012 [id number] ALICE RUSSO PATIENT [employer] ([id number]) PRESCRIPT ION Feb 27, 2012 [id number] ALICE RUSSO PATIENT MEDICARE (WNR) MEDICARE (M) PART B Apr 29, 2020 PART B [id number] ALICE RUSSO PATIENT MEDICARE (WNR) MEDICARE (M) PART A Apr 29, 2020 PART A [id number] ALICE RUSSO PATIENT MEDICARE (WNR) MEDICARE (M) PART A Apr 29, 2020 PART A [id number] [phone] ALICE RUSSO PATIENT MEDICARE (WNR) MEDICARE (M) PART B Apr 29, 2020 PART B [id number] [phone] ALICE RUSSO PATIENT Selected Encounter This section includes the information on record at [place] for the Encounter. Date/Time Encounter Type Encounter Description Reason Provider Source Jul 02, 2024 10:30 AM OFFICE O/P EST MOD 30 MIN ENDOCRINOLOGY ICD-10-CM E08.9 Diabetes due to underlying condition w/o complications [facility] Encounter Template Text not used by [place] Assessments - Encounter Diagnoses This section includes the primary and secondary diagnoses documented for the Encounter. 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 [place] [facility] Jul 17, 2024 01:36 PM SECONDARY Essential (primary) hypertension [facility] [place] [facility] Jul 17, 2024 01:36 PM SECONDARY Hyperlipidemia, unspecified [facility] [place] [facility] Jul 17, 2024 01:36 PM SECONDARY Hyperparathyroidis m, unspecified [facility] [place] [facility] Jul 17, 2024 01:36 PM SECONDARY Hypothyroidism, unspecified [facility] [place] [facility] Plan of Treatment: Future Appointments (+ 6 months) and Future Tests (+/- 45 days) The Plan of Treatment section includes future care activities for the patient from all [place] treatmentfacilities. This section includes future appointments and future orders which are active, pending or scheduled. Future Appointments This section includes appointments that were scheduled to occur 6 months from the date of the Encounter, up to a maximum of 20 appointments. The data comes from all [facility]. Appointment Date/Time Appointment Type Appointme nt Facility Name Jul 04, 2024 09:00 AM AMBULATORY - MEDICINE [place] [facility] [place] [facility] Sep 06, 2024 03:00 PM [facility] Sep 20, 2024 08:30 AM [facility] Sep 26, 2024 09:30 AM AMBULATORY - MEDICINE [place] [facility] [place] [facility] Oct 10, 2024 08:30 AM AMBULATORY - MEDICINE [place] [facility] [place] [facility] Oct 23, 2024 03:00 PM AMBULATORY - NONE [place] [facility] [place] [facility] Oct 23, 2024 03:15 PM AMBULATORY - MEDICINE [place] [facility] [place] [place] [facility] Oct 23, 2024 03:30 PM AMBULATORY - MEDICINE [place] [facility] Nov 30, 2024 09:30 AM AMBULATORY - NONE [place] [facility] [place] [facility] Dec 24, 2024 08:00 AM AMBULATORY - MEDICINE [place] [facility] [place] [facility] Dec 24, 2024 09:30 AM AMBULATORY - MEDICINE [place] [facility] [place] [facility] Active, Pending, and Scheduled Orders This section includes a listing of several types of active, pending, and scheduled orders, including clinic medications orders, diagnostic test orders, procedure orders and consult orders; where the start date of the order is 45 days before the date of the Encounter or 45 days after the date of theEncounter. The data comes from all [facility]. Test Date/Time Test Type Test Details Facility Name Jun 27, 2024 12:00 AM Laboratory - Chemistry Order TSH BLOOD (SST-SERUM) [facility] Jun 27, 2024 12:00 AM Laboratory - Chemistry Order BASIC METABOLIC PANEL (non-fasting) BLOOD (SST-SERUM) [facility] Jun 27, 2024 12:00 AM Laboratory - Chemistry Order CBC BLOOD (LAV-BLOOD) [facility] Jun 27, 2024 12:00 AM Laboratory - Chemistry Order PT & INR (PROTIME) BLOOD (BLUE-PLASMA) [facility] Jun 27, 2024 12:00 AM Laboratory - Chemistry Order PSA BLOOD (SST-SERUM) [facility] Jun 27, 2024 12:00 AM Laboratory - Chemistry Order HEMOGLOBIN A1C PANEL BLOOD (LAV-BLOOD) [facility] Jul 02, 2024 12:00 AM Laboratory - Chemistry Order TSH BLOOD (SST-SERUM) [facility] Jul 02, 2024 12:00 AM Laboratory - Chemistry Order CALCIUM BLOOD (SST-SERUM) [facility] Jul 02, 2024 12:00 AM Laboratory - Chemistry Order CALCIUM, 24HR PANEL 24 HR URINE SP [facility] Lab Results: +/- 30 days of [...] Range Comment Jun 27, 2024 11:33 AM [facility] THYROID T4 FREE(FT4) (WROX) Specimen Type: SERUM No comment entered. Ordering Provider: COMPA ELLIS Report Released Date/Time: Apr 20, 2024 06:27 PM Reporting Lab: [address] [address] Performing Lab: [facility] [address] [facility] [address] THYROID T4 FREE(FT4) (WROX) 1.55 ng/dL 0.6-1.6 Jun 27, 2024 11:33 AM [facility] CALCIUM Specimen Type: SERUM No comment entered. Ordering Provider: COMPA ELLIS Report Released Date/Time: Apr 20, 2024 06:27 PM Reporting Lab: [address] [address] Performing Lab: [address] [place] [address] CALCIUM 9.4 mg/dL 8.5-10.2 Jun 27, 2024 11:33 AM [facility] [place] [facility] PTH INTACT Specimen Type: SERUM No comment entered. Ordering Provider: COMPA ELLIS Report Released Date/Time: Apr 20, 2024 06:27 PM Reporting Lab: [facility] [address] Performing Lab: [facility] [address] [address] PTH INTACT 62.8 pg/mL 10-65 Jun 27, 2024 11:33 AM [facility] VITAMIN D (25-[place]) Specimen Type: SERUM No comment entered. Ordering Provider: COMPA ELLIS Report Released Date/Time: Apr 20, 2024 06:27 PM Reporting Lab: [facility] [address] Performing Lab: [facility] [address] [address] VITAMIN D (25-[place]) 37 ng/mL 20-50 Jun 25, 2024 10:14 AM [facility] CBC Specimen Type: BLOOD No comment entered. Ordering Provider: OSIRIS ELIAS AM Report Released Date/Time: Jun 14, 2024 02:11 PM Reporting Lab: [facility] [address] [address] Performing Lab: [facility] [address] [address] WBC 6.96 10*3/uL 4.50-11.00 RBC 4.67 10*6/uL 4.23-5.66 HGB 15.9 g/dL 12.8-17 HCT 46.1 39.2-50.4 MCV 98.7 fL 82-99 MCHC 34.5 g/dL 30.8-35.1 PLT 148 10*3/uL 140-360 RDW-CV 13.0 12.0-16.0 MCH 34.0 pg H 26.2-32.6 Jun 25, 2024 10:14 AM [facility] BASIC METABOLIC PANEL (non-fasting) Specimen Type: SERUM No comment entered. Ordering Provider: OSIRIS ELIAS AM Report Released Date/Time: Jun 14, 2024 02:11 PM Reporting Lab: [facility] [address] [facility] [address] Performing Lab: [address] [address] UREA NITROGEN 9 mg/dL 7-25 GLUCOSE 166 mg/dL H 65-100 SODIUM 137 mmol/L 135-145 POTASSIUM 3.8 mmol/L 3.5-5.0 CHLORIDE 103 mmol/L 100-110 CO2 23 meq/L 20-30 CREATININE, Serum 1.00 mg/dL 0.50-1.40 eGFR(CKD-EPI 2020) 81 mL/min >60 Jun 25, 2024 10:14 AM [facility] LIPID PANEL, NON FASTING Specimen Type: SERUM No comment entered. Ordering Provider: OSIRIS ELIAS AM Report Released Date/Time: Jun 14, 2024 02:11 PM Reporting Lab: [address] [address] Performing Lab: [address] [address] CHOLESTEROL 95 mg/dL TRIGLYCERIDE 91 mg/dL 0-150 LDL calculated 30 mg/dL 0-129 CHOL/HDL 2.0 HDL CHOLESTEROL 47 mg/dL 40-60 Jun 25, 2024 10:14 AM [facility] LIVER FUNCTION Specimen Type: SERUM No comment entered. Ordering Provider: OSIRIS ELIAS AM Report Released Date/Time: Jun 14, 2024 02:11 PM Reporting Lab: [address] [address] Performing Lab: [address] [address] PROTEIN,TOTAL 7.0 g/dL 6.0-8.3 ALBUMIN 4.0 g/dL 3.5-5.0 ALKALINE PHOSPHATASE 88 U/L 40-150 AST 14 U/L 5-34 ALT 17 U/L BILIRUBIN, TOTAL 0.7 mg/dL 0.2-1.2 Jun 25, 2024 10:14 AM [facility] HEMOGLOBIN A1C PANEL Specimen Type: BLOOD [...] 14, 2024 02:11 PM Reporting Lab: [address] [address] Performing Lab: [address] [address] HEMOGLOBIN A1C 6.3 H 4.0-5.6 Jun 25, 2024 10:14 AM [facility] PSA Specimen Type: SERUM No comment entered. Ordering Provider: OSIRIS ELIAS AM Report Released Date/Time: Jun 14, 2024 02:11 PM Reporting Lab: [address] [address] Performing Lab: [address] [address] PSA < 0.10 ng/mL 0.00-4.00 Jun 25, 2024 10:14 AM [facility] MICROALBUMIN CREATININE RATIO PANEL Specimen Type: URINE No comment entered. Ordering Provider: OSIRIS ELIAS AM Report Released Date/Time: Jun 14, 2024 02:11 PM Reporting Lab: [address] [address] Performing Lab: [address] [address] MICROALBUMIN/C REATININE RATIO 18.0 mg/g 0-29.9 MICROALBUMIN,Q UANTITATIVE 1.3 mg/dL RR UNAVAIL CREATININE URINE 72.19 mg/dL Jun 25, 2024 10:14 AM [facility] TSH Specimen Type: SERUM No comment entered. Ordering Provider: OSIRIS ELIAS AM Report Released Date/Time: Jun 14, 2024 02:11 PM Reporting Lab: [facility] [address] [facility] [address] Performing Lab: [address] [address] TSH 3.53 u[IU]/mL 0.35-5.00 Jun 25, 2024 10:14 AM [facility] PT & INR (PROTIME) Specimen Type: PLASMA No comment entered. Ordering Provider: OSIRIS ELIAS AM Report Released Date/Time: Jun 14, 2024 02:11 PM Reporting Lab: [address] [address] Performing Lab: [address] [address] INR 2.3 PROTIME 25.5 s H 10.0-13.1 Vital Signs: All taken on the encounter date This section contains inpatient and outpatient Vital Signs collected on the date of the Encounter. Date/Time Temperature Pulse Blood Pressure Respiratory Rate SP02 Pain Height Weight Body Mass Index Source Jul 02, 2024 10:43 AM 98.2 74 118/74 16 99 10 173 26 [facility] Social History: Smoking Status (Most current) and Tobacco Use (All prior to encounter date) This section includes the most current, and the historical, smoking and tobacco- related health factors from the [place] facility where the Encounter took place. Current Smoking Status This section includes the most current smoking, or tobacco-related health factor, from the [place] facility where the Encounter took place. Date/Time Current Smoking Status Comment Guerrero parr Jun 27, 2024 11:00 AM VA-TOBACCO USE MICHELLE RY DAY CIGARETTES [facility] Tobacco Use History This section includes a history of the smoking, or tobacco-related health factors, that were collected on or before the date of the Encounter. The data comes from the [place] facility where the Encounter took place. 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 [facility] [place] [facility] Jun 27, 2024 11:00 AM VA-TOBACCO USE MICHELLE RY DAY CIGARETTES [facility] [place] [facility] Jun 27, 2024 11:00 AM VA-TOBACCO USE MED NO [facility] [place] [facility] Sep 09, 2020 08:36 AM VA-TOBACCO DOESNT USE WI 30 MIN WAKEUP [place] [facility] [place] [facility] Sep 09, 2020 08:36 AM VA-TOBACCO USE 30 YEARS OR MORE [facility] [place] [facility] Sep 09, 2020 08:36 AM VA-TOBACCO USE ADVICE [facility] [place] [facility] Sep 09, 2020 08:36 AM 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 Followed by [facility]. He has us carotid at [facility], and states thyroid n odule seen. 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 Otherwise no radiation exposure, and he was not particularly close to missiles. No family hx thyroid CA. He has not noted mass in thyroid, no hoarseness or dysphagia. No temp intolerance. Currently bowels are fine. No tremor, occ palpitations with anxiety, has known atrial fibrillation. No kidney stones. All endocrine labs were discused with the patient Jun 25 HGB-A1c 6.3 H % 4 - 5.6 Jun 27 Jun 25 Reference 2023 2023 11:33 10:14 TSH 3.53 uIU/mL .35 - 5 FT4 1.55 ng/dL .6 - 1.6 Jun 27 Jun 25 20242023 GLUCOSE 166 H mg/dL 65 - 100 BUN 9 mg/dL 7 - 25 CREATININE 1.00 mg/dL .5 - 1.4 Sodium 137 mmol/L 135 - 145 K+/Pot 3.8 mmol/L 3.5 - 5 CL 103 mmol/L 100 - 110 CO2 23 mEq/L - CA 9.4 mg/dL 8.5 - 10.2 Jun 27, 2024@11:33 VITAMIN D (25-[place]): 37 ng/mL - 50 Jun 27, 2024@11:33 PTH INTACT: 62.8 pg/mL - 65 JANUARY 18, 2022 EXAM: Bone Mineral Density (BMD) HISTORY: Screening for osteoporosis PRIOR: none HIP: BMD of 0.83, T score is -0.7 L-SPINE: BMD of 1.2, T score 1.0 Barriers/s supports for care: lives alone. Ability to eat varies. Currently has trouble cooking due to pain. Taking mostly one meal a day. Medications for diabetes: INSULIN,ASPART(EQV-NOVLG)100UN /ML FLXPEN INJECT HOLD DIRECTED SUBCUTANEOUSLY THREE TIMES A DAY 3 UNITS AT BREAKFAST, 1 UNIT PER 8 GM CARB LUNCH, AND 1 UNIT PER 7 GM CARB DINNER PLEASE HOLD UNTIL REQUESTED INSULIN,GLARGINe 19 units daily SUBCUTANEOUSLY EVERY MORNING BG readings: CGM Having lower bg in AM. Hgba1c? HEMOGLOBIN A1C TREND 03/28/2024 10:32 BLOOD 7.3 H 01/04/2024 13:53 BLOOD 7.4 H 09/22/2023 09:59 BLOOD 7.0 H 05/31/2023 12:14 BLOOD 7.0 H 02/23/2023 09:18 BLOOD 6.8 H Weight trend: 183 lbs BMI 27.91 Food insecurity no Physical activity: down a little Carbohydrate counting: well informed Episodes of hypoglycemia: Hypoglycemia unawareness: Neuropathy pain: Last eye evaluation: Last nephropathy screen MICROALBUMIN Sep 22, 2023@09:59 URINE mALB/Cr: 13.4 mg/G 0 - 29.9 FindingsCREATININE-EGFR 03/28/24 10:32 0.94 01/04/24 13:53 0.98 09/22/23 09:59 0.92 Statin therapy: Jun 25 2024 CHOL 95 mg/dL <7 - 199 TRIG 91 mg/dL 0 - 150 HDL 47 mg/dL 40 - 60 LDL 30 mg/dL 0 - 129 CAD: Present On asa: yes emergency kit/glucose tabs: n/a Active problems - Computerized Problem List [...] disease 17. Abdominal aortic aneurysm (SNOMED CT [id number]) 18. Localized osteoarthrosis 19. Sciatica 20. Primary Care Physician 21. Cervical radiculopathy 22. Hypothyroidism Active Outpatient Medications (including Supplies): ACCU-CHEK GUIDE (GLUCOSE) TEST STRIP USE 1 STRIP TO TEST ACTIVE BLOOD SUGARS THREE TIMES DAILY NEEDED SENSOR FAILURE DEPEND UNDERWEAR,MAXIMUM,MEN SM/MED USE 1 BRIEF ACTIVE DIRECTED ONCE DAILY NEEDED GLUCOSE SENSOR FREESTYLE REYES 3 USE 1 SENSOR DIRECTED ACTIVE EVERY 14 DAYS INSULIN,ASPART(EQV-NOVLG)100UN /ML FLXPEN INJECT HOLD DIRECTED SUBCUTANEOUSLY THREE TIMES A DAY 3 UNITS AT BREAKFAST, 1 UNIT PER 8 GM CARB LUNCH, AND 1 UNIT PER 7 GM CARB DINNER PLEASE HOLD UNTIL REQUESTED INSULIN,GLARGINE-YFGN 100UNIT/ML PEN 3ML INJECT 20 UNITS HOLD SUBCUTANEOUSLY EVERY MORNING LEVOTHYROXINE NA (SYNTHROID) 175MCG TAB TAKE ONE TABLET BY ACTIVE MOUTH EVERY MORNING 30 MINUTES BEFORE BREAKFAST FOR THYROID - TAKE ON AN EMPTY STOMACH WITH A FULL GLASS OF WATER LIDOCAINE 5% OINT APPLY LIBERAL AMOUNT TOPICALLY TWICE ACTIVE DAILY NERVE PAIN NEEDLE,PEN 32G,4MM USE 1 NEEDLE SUBCUTANEOUSLY FOUR TIMES ACTIVE A DAY FOR USE WITH PEN DEVICE TRANSPARENT DRESSING 2 3/8IN X 2 3/4IN APPLY 1 DRESSING ACTIVE TOPICALLY [id number] Non-VA ASPIRIN 81MG EC TAB 81MG BY MOUTH EVERY DAY ACTIVE Non-VA ATORVASTATIN CALCIUM 80MG TAB 40MG BY MOUTH AT ACTIVE BEDTIME Non-VA CALCIUM 500MG (CA CARB-1.25GM) TAB 1000MG BY MOUTH ACTIVE ONCE DAILY Non-VA CREON 6,000UNIT EC CAP 4 CAPSULES BY MOUTH THREE ACTIVE TIMES DAILY NEEDED Non-VA DILTIAZEM (EQV-TIAZAC) 360MG 24HR CAP 360MG BY ACTIVE 180 m g now MOUTH ONCE DAILY Non-VA FAMOTIDINE 10MG TAB [...] TAB DIRECTED BY MOUTH EVERY ACTIVE DAY empagliflozin , renewed SHX: as above ROS: No cough or fever PE: affect pleasant appropriate speaking easily in full sentences Feet pulses not palpable sensory to monofilament marked decrease lesions no Medical Decision Making: Hyperparathyroidism: Normalized with good calcium and vitamin D supplementation Hypothyroidism continue present levotohyroxine 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 Insulin orders updated in cprs F/u three mos FTF Medication Reconciliation: Outpatient: Has the patient been taking medications as documented in the EMLR? No: Discrepencies were identified. See below. Essential Medication List for Review used to complete this medication reconciliation. INCLUDED IN THIS LIST: Alphabetical list of active outpatient prescriptions dispensed from this [place] (local) and dispensed from another VA or [...] Remote Allergy/ADR Data available for this patient [place] [facility] Med Recon NoGlossary (Tool #1) INCLUDED IN THIS LIST: Alphabetical list of active outpatient prescriptions dispensed from this [place] (local) and dispensed from another VA or [...] the patient into personal health records (i.e. Preo) are NOT included in this list. Non-VA medications documented outside this [place], remote inpatient orders (regardless of status) and [...] provider. OUTPT EMPAGLIFLOZIN 25MG TAB (Status = ) TAKE ONE TABLET BY MOUTH ONCE DAILY FOR DIABETES Rx# [id number] Last Released: 03/19/24 Qty/Days Supply: Rx Expiration Date: 05/12/24 Refills Remainin OUTPT EMPAGLIFLOZIN 25MG TAB (Status = Pending) TAKE ONE TABLET BY MOUTH ONCE DAILY Login Date: 07/02/24 Qty/Days Supply: Refills Ordered: 3 Non-VA FAMOTIDINE 10MG TAB TAKE ONE TABLET BY MOUTH AT BEDTIME Medication prescribed by Non-VA provider. OUTPT INSULIN,ASPART(EQV-NOVLG)100UN /ML FLXPEN (Status = Discontinued) INJECT INSULIN SUBCUTANEOUSLY THREE TIMES A DAY FOR DIABETES FOLLOWS: 1 UNIT PER 7 GM OF CARBS AT BREAKFAST, 1 UNIT PER 6 GM OF CARBS AT LUNCH, 1 UNIT PER 8 GM OF CARBS AT DINNER. Rx# [id number] Last Released: 12/06/23 Qty/Days Supply: Rx Expiration Date: 06/08/24 Refills Remainin Indication: FOR DIABETES OUTPT INSULIN,ASPART(EQV-NOVLG)100UN /ML FLXPEN (Status = On Hold) INJECT DIRECTED SUBCUTANEOUSLY THREE TIMES A DAY 3 UNITS AT BREAKFAST, 1 UNIT PER 8 GM CARB LUNCH, AND 1 UNIT PER 7 GM CARB DINNER PLEASE HOLD UNTIL REQUESTED Rx# [id number] Last Released: Qt Supply: Rx Expiration Date: 05/04/25 Refills Remainin Indication: FOR DIABETES OUTPT INSULIN,GLARGINE-YFGN 100UNIT/ML PEN 3ML (Status = Discontinued) INJECT 21 UNITS SUBCUTANEOUSLY EVERY MORNING Rx# [id number] Last Released: 01/09/24 Qty/Days Supply: Rx Expiration Date: 01/05/25 Refills Remainin Indication: FOR DIABETES OUTPT INSULIN,GLARGINE-YFGN 100UNIT/ML PEN 3ML (Status = On Hold) INJECT 20 UNITS SUBCUTANEOUSLY EVERY MORNING Rx# [id number] Last Released: Qt Supply: Rx Expiration Date: 05/04/25 Refills Remainin Indication: FOR DIABETES OUTPT LEVOTHYROXINE NA (SYNTHROID) 175MCG TAB (Status = Active) TAKE ONE TABLET BY MOUTH EVERY MORNING 30 MINUTES BEFORE BREAKFAST FOR THYROID - TAKE ON AN EMPTY STOMACH WITH A FULL GLASS OF WATER Rx# [id number] Last Released: 06/20/24 Qty/Days Supply: Rx Expiration Date: 03/17/25 Refills Remainin Indication: FOR THYROID OUTPT LEVOTHYROXINE NA (SYNTHROID) 175MCG TAB (Status = Pending) TAKE ONE TABLET BY MOUTH EVERY MORNING 30 MINUTES BEFORE BREAKFAST FOR THYROID - TAKE ON AN EMPTY STOMACH WITH A FULL GLASS OF WATER Renewed from Rx# [id number] Qty/ Supply: Login Date: 07/02/24 Refills Ordered: 1 OUTPT LIDOCAINE 5% OINT (Status = Discontinued) APPLY LIBERAL AMOUNT TOPICALLY TWICE DAILY NERVE PAIN Rx# [id number] Last Released: 01/09/24 Qty/Days Supply: Rx Expiration Date: 01/05/25 Refills Remainin Indication: NERVE PAIN OUTPT LIDOCAINE 5% PATCH (Status = Active) APPLY 1 PATCH TOPICALLY ONCE DAILY FOR NERVE PAIN (LEAVE PATCH ON FOR 12 HOURS, THEN REMOVE PATCH) Rx# [id number] Last Released: 06/29/24 Qty/Days Supply: Rx Expiration [...] DAILY NEEDED FOR NAUSEA AND VOMITING Rx# [id number] Last Released: 04/10/24 Qty/Days Supply: 60/30 Rx Expiration Date: 04/13/24 Refills Remainin Indication: FOR NAUSEA AND VOMITING Non-VA OTHER CAP/TAB TAKE BCG intravaesical VARIABLE Non-VA OTHER CAP/TAB TAKE VIOCASE BY MOUTH THREE TIMES A DAY four for meals and two for snacks Indication: pancreatitis Non-VA WARFARIN (NON-VA) TAB TAKE DIRECTED BY MOUTH EVERY DAY Medication prescribed by Non-VA provider. SUPPLIES OUTPT ACCU-CHEK GUIDE (GLUCOSE) TEST STRIP (Status = Discontinued) USE 1 STRIP TO TEST BLOOD SUGARS THREE TIMES DAILY NEEDED SENSOR FAILURE Rx# [id number] Last Released: 11/03/23 Qty/Days Supply: 100/30 Rx Expiration Date: 10/21/24 Refills Remainin Indication: SENSOR FAILURE OUTPT ACCU-CHEK GUIDE (GLUCOSE) TEST STRIP (Status = Active) USE 1 STRIP TO TEST BLOOD SUGARS THREE TIMES DAILY NEEDED SENSOR FAILURE Rx# [id number] Last Released: 05/10/24 Qty/Days Supply: 100/30 Rx Expiration Date: 05/04/25 Refills Remainin Indication: SENSOR FAILURE OUTPT DEPEND UNDERWEAR,MAXIMUM,MEN SM/MED (Status = Active) USE 1 BRIEF DIRECTED ONCE DAILY NEEDED Rx# [id number] Last Released: 04/10/24 Qty/Days Supply: Rx Expiration Date: 08/01/24 Refills Remainin Indication: INCONTINENCE OUTPT GLUCOSE SENSOR FREESTYLE REYES 3 (Status = Discontinued) USE 1 SENSOR DIRECTED EVERY 14 DAYS Rx# [id number] Last Released: 03/08/24 Qty/Days Supply: 10/26 Rx Expiration Date: 01/06/25 Refills Remainin OUTPT GLUCOSE SENSOR FREESTYLE REYES 3 (Status = Active) USE 1 SENSOR DIRECTED EVERY 14 DAYS Rx# [id number] Last Released: 06/21/24 Qty/Days Supply: 10/26 Rx Expiration Date: 04/28/25 Refills Remainin OUTPT GLUCOSE SENSOR FREESTYLE REYES 3 (Status = Pending) GLUCOSE SENSOR FREESTYLE REYES 3 USE 1 SENSOR DIRECTED EVERY 14 DAYS Renewed from Rx# [id number] Qty/Days Supply: 10/26 Login Date: 07/02/24 Refills Ordered: 5 OUTPT NEEDLE,PEN 32G,4MM (Status = Active) USE 1 NEEDLE SUBCUTANEOUSLY FOUR TIMES A DAY FOR USE WITH PEN DEVICE Rx# [id number] Last Released: 05/03/24 Qty/Days Supply: 400/90 Rx Expiration Date: 07/26/24 Refills Remainin OUTPT TRANSPARENT DRESSING 2 3/8IN X 2 3/4IN (Status = Active) APPLY 1 DRESSING TOPICALLY [id number] Rx# [id number] Last Released: 12/13/23 Qty/Days Supply: Rx Expiration Date: 12/13/24 Refills Remainin OUTPT TRANSPARENT DRESSING 2 3/8IN X 2 3/4IN (Status = Pending) DRESSING 2 3/8IN X 2 3/4IN APPLY 1 DRESSING TOPICALLY [id number] Renewed from Rx# [id number] Qty/Days Supply: Login Date: 07/02/24 Refills Ordered: Mauro khan/ COMPA ELILS MD STAFF PHYSICIAN Signed: 07/02/2024 11:08 COMPA ELLIS [facility] [facility]
--- OUTSIDE RECORDS SUMMARY | 2024-10-31 08:09 | XMS_ITS | Continuity of Care Document ---
Author Organization [facility] Address [address] [place] [id number]- Care Team Providers Care Pharmacy Technician Infusion Name Role Phone Deyvi Brantley MD [id number]): [facility] - 10/11/24 [facility] [address] [place] [address] Attending Physician: Koffi Pollack MD Admitting Physician: Koffi Pollack MD Referring Physician: Deyvi Brantley MD Encounter Type: Pre-OutPatient One Time Allergies, Adverse Reactions, Alerts Substance Criticality Severity [...] vaccine, inactivated 06/09/18 Recorded pneumococcal 23-valent vaccine 1/1/18 Recorded tetanus/diphtheria/pertussis, acel(Tdap) 04/04/17 Recorded Medications acetaminophen [...] fluoride-potassium nitrate 1.1%-5% topical paste 3 Refill(s), [place] teeth for 2 minutes, morning and night. [...] 3:04:00 PM EST, [id number] Partial fill upon patient request if the [...] tablet,3 Refills, Maintenance, 05/15/24 8:44:00 AM EDT, [id number], Partial fill upon patient request if the [...] Team Personnel Name: Neena Christian RN Position: [facility] RN Member Role: Primary Care Nurse Name: Deyvi Brantley MD Position: [facility] Outreach Member Role: PCP Address: [address] [place] [address] [employer], [address] Telecom: Name: [address] RN Position: [...] name: ALICE RUSSO Health Plan Information #: 3 Payer: [employer] [place] [employer] Member Number: [id number] Policy Number: NA Group Number: NA Health Plan Information #: 1 Payer: MEDICARE PART B OUTPT Member Number: [id number] Policy Number: NA Group Number: NA Health Plan Information #: 2 Payer: MEDEX Member Number: [id number] Policy Number: NA Group Number: NA
--- OUTSIDE RECORDS SUMMARY | 2024-10-31 08:10 | XMS_ITS | Encounter Summary ---
Author Name [facility] Organization [facility] [place] Address [address] [place] [id number] Care Team Providers Care Swedish Masseuse Name Role Phone MARICEL ELIAS Primary Care [...] SUPPLEMEN YAMILKA MEDEX 2 Apr 29, 2020 [id number] ALICE RUSSO BS [place] MED[place] SUPPLEMEN [employer] MEDEX 2 Apr 29, 2020 [id number] ALICE RUSSO BS [facility] SHARE ACTIV E Feb 27, 2012 [id number] [phone] ALICE RUSSO PATIENT [employer] ([id number]) PRESCRIPT ION L4TA* Feb 27, 2012 [id number] ALICE RUSSO PATIENT [employer] ([id number]) PRESCRIPT ION Feb 27, 2012 L4TA [id number] ALICE RUSSO PATIENT MEDICARE (WNR) MEDICARE (M) PART A Apr 29, 2020 PART A [id number] ALICE RUSSO PATIENT MEDICARE (WNR) MEDICARE (M) PART B Apr 29, 2020 PART B [id number] ALICE RUSSO PATIENT MEDICARE (WNR) MEDICARE (M) PART A Apr 29, 2020 PART A [id number] ALICE RUSSO PATIENT MEDICARE (WNR) MEDICARE (M) PART B Apr 29, 2020 PART B [id number] ALICE RUSSO PATIENT Selected Encounter This section includes the information on record at [place] for the Encounter. Date/Time Encounter Type Encounter Description Reason Pro vider Source IHE Encounter Template Text not used by [place]
[2024-10-31] MEDS: iohexoL 350 MG/ML 100 ML INFUS..BTL IV (09:41)
[2024-10-31] MEDS: Sorbitol/Mannit/Xanth Imaging 500 ML LIQUID 1500 ML PO (09:43)
[2024-10-31 10:52] LABS: GFR POC > 60
== END 2024-10-31 08:01 | disposition home or self-care (01) ==
LOC: HO.CT 08:00
PROVIDERS: PCP Internal Medicine; Visit Provider Internal Medicine Gastroenterology
DX: K56.600 Partial intestinal obstruction, unspecified as to cause (principal); R10.33 Periumbilical pain
CPT/HCPCS: 74177; 82565; Q9967

== ENCOUNTER → 2024-10-31 08:03 | Outpatient (BNV) | payer MEDICARE, SELFPAY | PROVIDERS: PCP Internal Medicine; Visit Provider Radiology Vascular & Interventional Radiology | DX: K56.600 Partial intestinal obstruction, unspecified as to cause (principal) | CPT/HCPCS: 74177 ==

== ENCOUNTER 2024-11-21 10:16 | Day surgery (SDC) | payer MEDICARE, SELFPAY ==
--- OUTSIDE RECORDS SUMMARY | 2024-11-02 12:24 | XMS_ITS | Continuity of Care Document ---
Author Organization [facility] 2 [facility] [address] [place] [address] Phone [phone] Care Team Providers Care Die Hardener Name Role Phone Deyvi Brantley M.D. Care Team Information Insulator Technician [phone] Problems Active Problems Provider Date Type 2 [...] SIG Qnty Indications Order ing Provider Date Iyhawxq1ep Tablets 1 tab by mouth every day Bridger Reece M.D. 07/26/2022 Cardizem TE743ad Caps ER 24HR 1 tab by mouth every day Bridger Reece M.D. 07/26/2022 Idpzuddha37sd Tablets 1 by mouth every day Bridger Reece M.D. 07/26/2022 Metoprolol Rylqfptq575fd Tablets 1 tab by mouth twice a day Bridger Reece M.D. 03/24/2022 Objoivgriy15vz Tablets Take 1 Tablet By Mouth AT Bedtime Marcia Richard MD Atorvastatin Cxmdqid47te Tablets 1 tab by mouth every evening 90tabs Deyvi Brantley M.D. Warfarin Fdeclk5uk Tablets as directed Deyvi Brantley M.D. Levothyroxine Hssgbn672fxd Tablets 1 tab by mouth every morning Deyvi Brantley M.D. Tamsulosin HCL0.4mg Capsules 1 tab by mouth every night Unknown Novolog Dimrshz101Dulx/ML Solution Pen-Inject Inject 6 Units Under The Skin Before Meals Bridger Reece M.D. BD Pen Needle/Scarlet 2ND Gen/32G X 5/32 32G X 4 mm Misc Use 1 Needle Four Times Daily Bridger Reece M.D. Basaglar Oossjvx023Dzio/ML Solution Pen-Inject Inject 25 Units Subcutaneously Once A Day Bridger Reece M.D. Ncrhtea28045-36204Nw it Tablets 5 tabs ac and 2 [...]
--- OUTSIDE RECORDS SUMMARY | 2024-11-02 12:24 | XMS_ITS | Clinical Summary ---
Author Organization [employer] Address [address] [facility] [address] [place] [address] Care Team Providers Care Ediscovery Project Manager Name Role Phone Unavailable Primary Care Provider [...] MG tablet 4 mg. 9 Active Viokace 82517-30445 units tablet Take by mouth. Ac tive tamsulosin (Flomax) 0.4 MG 24 hr capsule Take by mouth. 1 Active warfarin (Coumadin) 5 MG tablet 3 Active Sodium Fluoride (PreviDent 5000 Booster Plus) 1.1 % paste [place] teeth for 2 minutes, morning and night. [...] see Chronic Pancreatitis specialistend of 02/2019 at [facility] in [place] Other chronic pancreatitis 01/24/2024 Class 1 obesity [...] Comment: Primarily Knees, Low Back; R Knee [facility] 2015 Entered By: JUAN MARISCAL Comment: has seen Private Ortho; Received Inj's Knees Low bone density 01/24/2024 Meniere's disease, unspecified ear 01/24/2024 Other peripheral vertigo, unspecified ear 2023 Meniere's disease 01/24/2024 Overview (01/24/2024): Oct 14, 2016 Entered By: JUAN MARISCAL Comment: Ativan Abates Acute Sx; is Severe (gets Drop Attacks )Oct 14, 2016 Entered By: JUAN MARISCAL Comment: Saw ENT, [facility]; also do PT at [facility] in NOV 12 Mixed hyperlipidemia 01/24/2024 Tinea [...] Relevant to Health Maintenance Insurance DENTAL - [facility]
--- OUTSIDE RECORDS SUMMARY | 2024-11-02 12:24 | XMS_ITS | Clinical Summary ---
Author Organization [facility] Address [address] [place] [address] Care Team Providers Care Supervisor Soldering Name Role Phone Deyvi Brantley MD Primary Care Provider [phone] Allergies Active Allergy Reactions Criticality Noted Date [...] ERIC MCINTOSH Comment: Dxangelina 08/2018 - Dr Ward 2018 Entered By: ERIC MCINTOSH Comment: Scheduled to see Chronic Pancreatitis specialistend of 02/2019 at [facility] Persistent atrial fibrillation 07/31/2021 Anterior wall myocardial infarction 06/13/2021 Paroxysmal atrial fibrillation 03/19/2021 Dyslipidemia 03/19/2021 Coronary artery disease invo lving wainwright coronary artery of wain[place] heart without angina pectoris 11/20/2020 Overview (10/23/2024): [...] Type Department Care Team Description 08/06/2024 Telephone [facility] [address] [place] [address] Juan Strong MD [facility] CALL [...] Description 02/08/2025 9:10 AM EDT Office Visit [facility] [address] [place] [address] [address] [place] [address] Rashawn Francis NP [address] [place] [address] [address] [place] [address] Health Maintenance Due Date Last Done Comments [...] Payer (Ef fective 2020-Present) Name:Bruce Earl Member ID:[id number] Relation to Subscriber:Self Name:Bruce Earl Subscriber ID:[id number] Payer ID:Not on file Group ID:Not on file Type:Medicare Address: [place] [id number] Care Teams Supervisor Soldering Relationship Specialty Start Date End Date Deyvi Brantley MD [address] PCP - General 07/18/13
[2024-11-19 15:06] VITALS: BMI 26.8
[2024-11-21 12:32] VITALS: BMI 27.7
[2024-11-21 12:53] VITALS: BP 153/82; PULSE 64; RESP 20; TEMP 36.1; O2SAT 99
[2024-11-21 12:57] LABS: Prothrombin Time 11.4 SEC (10.9-12.4)
[2024-11-21] MEDS: Lactated Ringers 1,000 ML 100 ML IVCONT (13:13)
[2024-11-21 13:21] LABS: Glucose, Whole Blood 239 mg/dL (60-115)
--- NOTE | 2024-11-21 13:27 | HO.ANESPROP2 ---
HPI - Anesthesia Eval Consult details Narrative: 69 yo male patient for EGD PMFSH Active Problems Active Problems: All Active Problems Greater trochanteric bursitis of left hip (Acute) Dermatitis (Acute) Peroneal neuropathy (Acute) Right shoulder pain (Acute) Paresthesia of left foot (Acute) Smoking (Acute) Malnutrition (Acute) Chronic pancreatitis (Acute) Osteoporosis (Acute) Past Medical History Medical History Hx of supraventricular tachycardia Meniere's disease Hypothyroidism Hx of aortic aneurysm Hx of myocardial infarction CAD (coronary artery disease) Constipation Diabetes GERD (gastroesophageal reflux disease) Elevated cholesterol PVD (peripheral vascular disease) HTN (hypertension) Missing teeth, acquired Hx of bladder cancer Nausea History of ischemic colitis A-fib Osteoporosis Family History Family History Father Hx of cancer of lung Mother History of pancreatic cancer Surgical History Surgical History Stented coronary artery S/P TURP (transurethral resection of prostate) History of lumbar fusion Hx of fusion of cervical spine Hx of cystoscopy History of transurethral resection of bladder tumor (TURBT) S/P peripheral artery angioplasty with stent placement History of femoropopliteal bypass Hx of knee surgery H/O angioplasty H/O Spinal surgery History of colonoscopy History of Problems with Anesthesia: No Social History Social History Household Members: Other Household Members Other:: lives alone Are you a primary health care sanitary technician to a significant other at home: No Do you presently have visiting nurse or other home services: No Alcohol intake: current Alcohol intake frequency: does not drink Patient Tobacco Use Status: Current everyday Tobacco user Tobacco use type: Cigarette Cigarettes Per Day: 10 Use of substances other than those prescribed or required for medical reasons: Yes Substance Use Type: Marijuana Substance Use Frequency: Weekly Have you been hit, kicked, punched, or otherwise hurt by someone within the past year? If so, by whom?: No Are you DNR?: No Advance Directives: No Advance Directives Information Provided: Yes Advance Directives on File: No Recently lost weight without trying: No Nutrition Risks: No Nutritional Risk Meds Allergies Allergy/AdvReac Type Severity Reaction Status Date / Time amoxicillin [From Augmentin] Allergy Intermediate Nausea and Verified 09/10/24 13:35 Vomiting clavulanic acid Allergy Intermediate Nausea and Verified 09/10/24 13:35 [From Augmentin] Vomiting Active Medications: Current Medications Lactated Ringer's (Lr) 1,000 mls @ 100 mls/hr IVCONT .Q10H JESS Last Admin: 11/21/24 13:13 Dose: 100 mls/hr Home Medications ?Medication ?Instructions ?Recorded ?Confirmed ?Last Taken ?Type atorvastatin 40 mg tablet 40 mg PO BEDTIME 08/08/20 11/19/24 Unknown History insulin aspar prt-insulin aspart See Rx Instructions .Route .COMPLEX 08/08/20 11/19/24 Unknown History 100 unit/mL (70-30) subcutaneous soln (Novolog Mix 70-30 U-100 Insuln) insulin glargine 100 unit/mL (3 27 unit subcut BEDTIME 08/08/20 11/19/24 Unknown History mL) subcutaneous pen (Lantus Solostar U-100 Insulin) lorazepam 0.5 mg tablet (Ativan) 0.5 mg PO BEDTIME PRN Anxiety 08/08/20 11/19/24 Unknown History tamsulosin 0.4 mg capsule (Flomax) 0.4 mg PO DAILY@1700 08/08/20 11/19/24 Unknown History warfarin 5 mg tablet 5 mg PO DAILY 08/08/20 11/21/24 11/15/24 History finasteride 5 mg tablet 5 mg PO DAILY 11/20/21 11/19/24 Unknown History diltiazem HCl 360 mg 360 mg PO BEDTIME 05/21/22 11/19/24 Unknown History capsule,extended release 24 hr empagliflozin 10 mg tablet 25 mg PO DAILY 05/21/22 11/19/24 Unknown History (Jardiance) levothyroxine 125 mcg tablet 150 mcg PO DAILY 05/21/22 11/19/24 Unknown History metoprolol tartrate 50 mg tablet 50 mg PO BID 05/21/22 11/21/24 11/21/24 08:00 History aspirin 81 mg tablet,delayed 81 mg PO DAILY 10/12/22 11/19/24 Unknown History release calcium citrate 800 mg PO DAILY 10/12/22 11/19/24 Unknown History lisinopril 5 mg tablet 5 mg PO DAILY 10/12/22 11/19/24 Unknown History ondansetron HCl 4 mg tablet 4 mg PO Q8H PRN Nausea 10/12/22 11/19/24 10/19/22 History yxudtf-cvtotkfw-lrhmhsq 2 tab PO TID 02/28/23 11/19/24 Unknown History 20,880-78,300-78,300 unit tablet (Viokace) fluoride (sodium) 1.1 % dental 1 appl PO DAILY 03/12/24 11/19/24 Unknown History paste Exam Height,Weight and Vital Signs: Height 5 ft 8 in Weight 82.7 kg Last Vital Signs Temp 97.0 F 11/21/24 12:53 Pulse 64 11/21/24 12:53 Resp 20 11/21/24 12:53 BP 153/82 H 11/21/24 12:53 Pulse Ox 99 11/21/24 12:53 O2 Del Method Room Air 11/21/24 12:53 Pertinent Lab Results Pertinent Lab Results: Laboratory Tests 11/21/24 11/21/24 12:41 13:16 PT 11.4 INR 1.0 POC Glucose 239 H Assessment and Plan Final Anesthetic Review History of Problems with Anesthesia: No
[2024-11-21] MEDS: ondansetron HCL 4 MG/2 ML VIAL IVPUSH (13:38)
--- NOTE | 2024-11-21 13:59 | P.HPSUR_ITS ---
Pre-Procedural Eval Section A - 24 Hr Update-Section A only Date of Service: 11/21/24 Section B - Complete if H&P > 30 days Chief Complaint: Other chronic pancreatitis Details of Present Illness: abn imaging of the stomach Relevant Family History (Specify if Yes): No Relevant Social History: Tobacco Use Present Medications: see Short Stay Collaborative assessment Medical History: Significant History (Hx of supraventricular tachycardia Meniere's disease Hypothyroidism Hx of aortic aneurysm Hx of myocardial infarction CAD (coronary artery disease) Constipation Diabetes GERD (g astroesophageal reflux disease) Elevated cholesterol PVD (peripheral vascular disease) HTN (hypertension) Missing teeth, ac) History of Previous Operations: Relevant previous surgery/procedure and date(s) ( Stented coronary artery S/P TURP (transurethral resection of prostate) History of lumbar fusion Hx of fusion of cervical spine Hx of cystoscopy History of transurethral resection of bladder tumor (TURBT) S/P peripheral artery angioplasty with stent placement History of femoropopliteal bypass Hx of ) Allergies: Allergies Allergy/AdvReac Type Severity Reaction Status Date / Time amoxicillin [From Augmentin] Allergy Intermediate Nausea and Verified 09/10/24 13:35 Vomiting clavulanic acid Allergy Intermediate Nausea and Verified 09/10/24 13:35 [From Augmentin] Vomiting Review of Systems Sugical H&P ROS: Negative: Constitution, Cardiovascular, Respiratory, Neurological, Psychiatric, Hem-Onc, Allergic/Immunologic, Gastrointestinal, Genitourinary, Musculoskeletal, Integumentary, Endocrine and Eyes/Ears/Nose/Throat Exam Surgical H&P Exam: Normal: HEENT, Normal: Heart, Normal: Lungs, Normal: Extremities, Normal: Abdomen, Normal: Skin and Normal: Neurological Plan Diagnosis/Plan: Unchanged I have reviewed the history and physical and performed a pertinent physical examination on my patient. No changes have occurred unless specified. Time Spent With Patient Time: Total time managing care of this patient today ____ minutes.
--- NOTE | 2024-11-21 14:27 | W.PM.OPN ---
Operative Note Operative Note Date of Service: 11/21/24 Narrative: Procedure Description: EGD Indication: abn imaging, fullness of the stomach antrum Anesthesia: MAC FLEXIBLE TRANSORAL UPPER GASTROINTESTINAL ENDOSCOPY UPPER ENDOSCOPY Consent: Indications for the procedure and potential complications of bleeding, perforation, reaction to medications and missed diagnosis were discussed with the patient and informed consent was obtained. Instrument: Olympus GIF H 190 J mid size upper endoscope Monitoring: Vital signs and clinical assessment, continuous EKG monitoring, Pulse oximetry, Carbon Dioxide monitoring and blood pressure monitoring were done throughout the procedure. Procedure: The patient was placed in the left lateral decubitis position and pre-procedure medications were administered and a bite block was placed. The endoscope was inserted into the mouth and advanced under direct vision to the third part of duodenum. A careful inspection was made as the upper endoscope was withdrawn including a retroflexed examination of the proximal stomach; Findings and interventions are described below. Findings: Larynx:normal Esophagus: GE junction at 41 cm, diaphragm hiatus at 41 cm, normal mucosa Stomach: patchy erythema and coarse, granular mucosa . Biopsies were obtained. Grade 2 flap valve on retroflexed examination of the cardia. Antral fold is prominent but no mass or lesions seen Duodenum: Patchy erythema, bx taken Intervention: Biopsies as noted above, Impression/Findings: gastritis duodenitis PLAN: consider PPI if famotidine not helping sx
[2024-11-21 14:34] VITALS: BP 121/77; PULSE 76; RESP 17; TEMP 36.6; O2SAT 95
[2024-11-21 14:47] VITALS: BP 124/83; PULSE 78; RESP 18; TEMP 36.6; O2SAT 95
== END 2024-11-21 15:37 | disposition home or self-care (01) ==
PROVIDERS: Anesthesiology; PCP Internal Medicine; Visit Provider Internal Medicine Gastroenterology
PROC: 0DJ08ZZ Inspection of Upper Intestinal Tract, Via Natural or Artificial Opening Endoscopic (ICD-10-PCS; CPT 43235; principal; 2024-11-21 13:50)
DX: K86.1 Other chronic pancreatitis (principal); R11.2 Nausea with vomiting, unspecified; K29.50 Unspecified chronic gastritis without bleeding; K29.80 Duodenitis without bleeding; K44.9 Diaphragmatic hernia without obstruction or gangrene; K55.9 Vascular disorder of intestine, unspecified; K59.00 Constipation, unspecified; K21.9 Gastro-esophageal reflux disease without esophagitis; I10 Essential (primary) hypertension; I25.10 Atherosclerotic heart disease of native coronary artery without angina pectoris; I25.2 Old myocardial infarction; Z95.5 Presence of coronary angioplasty implant and graft; E78.00 Pure hypercholesterolemia, unspecified; E03.9 Hypothyroidism, unspecified; M81.0 Age-related osteoporosis without current pathological fracture; I73.9 Peripheral vascular disease, unspecified; E11.9 Type 2 diabetes mellitus without complications; Z85.51 Personal history of malignant neoplasm of bladder; Z79.4 Long term (current) use of insulin; Z79.01 Long term (current) use of anticoagulants; Z79.84 Long term (current) use of oral hypoglycemic drugs; Z79.899 Other long term (current) drug therapy; Z79.82 Long term (current) use of aspirin; Z88.1 Allergy status to other antibiotic agents; Z98.890 Other specified postprocedural states; F17.210 Nicotine dependence, cigarettes, uncomplicated
CPT/HCPCS: 43239; 36415; 82947; 85610; 88305; 88313; 88342; J1596; J2003; J2405; J2704

== ENCOUNTER → 2024-11-21 10:16 | Outpatient (BNV) | payer MEDICARE, SELFPAY | PROVIDERS: PCP Internal Medicine; Visit Provider Internal Medicine Gastroenterology | DX: R93.3 Abnormal findings on diagnostic imaging of other parts of digestive tract (principal); K29.70 Gastritis, unspecified, without bleeding; K29.80 Duodenitis without bleeding | CPT/HCPCS: 43239 ==

== ENCOUNTER 2024-12-03 14:28 | Outpatient (AMB) | payer MEDICARE, SELFPAY ==
--- NOTE | 2024-12-03 14:30 | MHC.OFFVIS ---
Intake Visit Reasons: S/P EGD; Dr. Richard [phone] Intake Note: Bruce presents as a telehealth today to go over results to his EGD. CC: States he is not having any concerns at this time. Allergies amoxicillin [From Augmentin] Allergy (Intermediate, Verified 12/03/24 14:29) Nausea and Vomiting clavulanic acid [From Augmentin] Allergy (Intermediate, Verified 12/03/24 14:29) Nausea and Vomiting HPI HPI S/P EGD; Dr. Richard [phone]: Details: 69-year-old gentleman w/ PAd, CAD being seen for follow-up for chronic pancreatitis and ischemic colitis RECAP: sx going on for 4-5 yrs labs: ca-19-9 elevated, CEA-elevated, Pnac gene tests neg, igg4 was low, celiac panel neg, vit A low, Vit D normal, stool elastase 256 MRI 05/16- multpile panc cysts, no masses CTA: 08/2018- acute on chronic panc MRI: 10/2018- stable cysts of pancreas, possible galllstone, stable fullness adrenal gland US: 04/2019- F2-3 on elastography, distal aortic plaque referred for EUS to Dr Juarez- not felt to be necessary has been on panc supplements and zofran for symptoms smoker colonoscopy 2016 with polyps removed still has GB in place I referred to rheum due to osteoporosis, and he was commenced on fosamax LFT noted to be abnormal he was having ongoing abdo pain can be on right or left side nausea most days unsure on how to take panc supplements food was making the pain worse, mild reflux symptoms one flloating stool daily says has not had alcohol for 45 years, etiology of pancreatitis is uncertain he had another apptm at [facility] for another opinon regards EUS mother of biliary cancer was still smoking, 3-4 cigs/day he was prescribed narcs and he is hesitant to take, due to being told he may have SOD. He saw Dr Pan at [facility] and was treated with rifaximin due to bloating which helped he also changed to viokase 20 K units 2 caps with meals, he stopped rosibel pep, wasn;t convinced it was helping trila of reglan due to possible gastroparesis, he thinks it is helping him by giving him more energy he was doing well up till few days ago, had pain in right flank, like a knife into the back, mild nausea no diarrhea, stool is formed. he had hematuria and seeing urologist he tried motegrity and he felt it didn;t help CT chest [facility] 01/2020--heavy coronary calcification, chronic lung disease, pulm nodules, rec repeat 12 months he si following up with rheum for osteporosis he is following up with urology for bladder cancer went thru course of BCG and mitomycin He did have suspected ischemic colitis and was admitted to [facility] The Ischemic colitis, was prob 2/2 constipation, maybe low flow state (seeing vascular at [facility] and gets periodic dopplers), or from a-fib was advised to cont linalcotide but take daily or every other day, adding fiber supplement, and increase fluid intake he had clear cystoscopy for his bladder ca he had [address] for his parathyroid, which was negative GES 07/20-- normal colonoscopy 09/2022--- polyp removed--perineuroma, diverticulosis noted]] He had SBO 04/2024 managed conservatively, He then had left fem pop bypass 08/21 I ordered CTe to eval small bowel due to hx of SBO: severe chronic pancreatitis interstitial lung disease iliac art aneurysm stomach thickening EGD was done without any concerning finding , bx were neg INTERIM: He is doing well no abdominal pain he is taking pancreas supps no nausea or vomiting Assessments 1. chronic nausea, due to chronic pancreatitis and medications--controlled 2. chronic panc--stable, with occasional flare ups, 3. SBO at [facility] -?from adhesions PLAN 1/ cont with creon 2/ cont with MV, vit D and C 3/ DEXA at future date [facility] Medical History Hx of supraventricular tachycardia Meniere's disease Hypothyroidism Hx of aortic aneurysm Hx of myocardial infarction CAD (coronary artery disease) Constipation Diabetes GERD (gastroesophageal reflux disease) Elevated cholesterol PVD (peripheral vascular disease) HTN (hypertension) Missing teeth, acquired Hx of bladder cancer Nausea History of ischemic colitis A-fib Osteoporosis Surgical History Stented coronary artery S/P TURP (transurethral resection of prostate) History of lumbar fusion Hx of fusion of cervical spine Hx of cystoscopy History of transurethral resection of bladder tumor (TURBT) S/P peripheral artery angioplasty with stent placement History of femoropopliteal bypass Hx of knee surgery H/O angioplasty H/O Spinal surgery History of colonoscopy Family History Father Hx of cancer of lung Mother History of pancreatic cancer Social History Household Members: Other Household Members Other:: lives alone Are you a primary lpn care manager to a significant other at home: No Do you presently have visiting nurse or other home services: No Alcohol intake: current Alcohol intake frequency: does not drink Patient Tobacco Use Status: Current everyday Tobacco user Tobacco use type: Cigarette Cigarettes Per Day: 10 Substance Use Type: Marijuana Telehealth Telehealth Telehealth Platform: Telephone Location of provider rendering services: practice address Location of patient: address on file Patient Identification confirmed using: Name, : Yes Telehealth method: voice only Patient verbally consented to treatment: Yes Patient verbally consented to billing insurance company: Yes Patient informed of any privacy concerns related to visit: Yes Minutes spent on Phone/Video with Pt.: 6 Assessment & Plan Assessment & Plan (1) Chronic pancreatitis: Code(s): K86.1 - Other chronic pancreatitis Category: Medical Plan: see above Coding Level of Care Code Est Pt Level 3 (04206) Diagnoses Chronic pancreatitis K86.1
--- OUTSIDE RECORDS SUMMARY | 2024-12-03 17:16 | XMS_ITS | Clinical Summary ---
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 Active cholecalcifero l (VITAMIN D-3) 25 mcg (1,000 unit) capsule Take 1 Capsule by mouth daily. Active dilTIAZem CD (CARDIZEM CD) 180 mg 24 hr capsule take 1 capsule by mouth daily 5 Active docusate sodium (COLACE) 100 mg capsule [...] Insulin) 100 unit/mL (3 mL) injection pen 3 Active levothyroxine (SYNTHROID, LEVOTHROID) 175 mcg tablet Take 1 Tablet by mouth daily. Active LORazepam (ATIVAN) 0.5 mg tablet Take 1 Tab by mouth as needed. Active nitroglycerin (NITROSTAT) 0.[address] 1 Tablet under the tongue as needed (as needed for chest pain). 4 Active ondansetron (ZOFRAN) 8 mg tablet Take 8 mg by mouth every 8 hours as needed. Active tamsulosin (FLOMAX) 0.4 mg 24 hr capsule Take 1 Capsule by mouth daily. Take 30 mins after same meal every day. Active lipase/proteas e/amylase (VIOKASE 8 ORAL) Take by mouth. - [...] unit/mL injection Inject under the skin. Active atorvastatin (LIPITOR) 40 mg tablet TAKE 1 TABLET BY MOUTH DAILY 90 tablet 1 5 Active atorvastatin (LIPITOR) 40 mg tablet TAKE 1 TABLET BY MOUTH DAILY 90 tablet 4 025 Discontinued Active Problems Problem Noted Date Diagnosed Date PVD (peripheral vascular disease) 10/23/2024 DM2 (diabetes mellitus, type 2) 10/23/2024 Typical atrial flutter 10/23/2024 Ischemic colitis 10/23/2024 Chronic pancreatitis 01/24/2024 Overview (10/23/2024): Mar 15, 2019 Entered By: ERIC MCINTOSH Comment: Davon 08/2018 - Dr Ward 2018 Entered By: ERIC MCINTOSH Comment: Scheduled to see Chronic Pancreatitis specialistend of 02/2019 at [facility] Persistent atrial fibrillation 07/31/2021 Anterior wall myocardial infarction 06/13/2021 Paroxysmal atrial fibrillation 03/19/2021 Dyslipidemia 03/19/2021 Coronary artery disease [facility] coronary artery of [facility] heart without angina pectoris 11/20/2020 Overview (10/23/2024): [...] Encounters Date Type Department Care Team Description 11/19/2024 Telephone [facility] [address] [place] [address] Deyvi Brantley MD Medical Records 11/07/2024 Telephone [facility] [address] [place] [phone] Barbara Arias MA Call from MD office from Last 3 Months Surgical History Surgery Date Site/Laterality Comments OTHER SURGICAL HISTORY PROCEDURE: HISTORY OTHER; COMMENT: Bladder tumor resection Medical History Medical History Date Comments Acute pancreatitis DX:Acute panc reatitis Atherosclerotic heart disease DX :Atherosclerotic heart disease Meniere's disease DX:Meniere's d isease Dyslipidemia DX:Dyslipidemia SVT (supraventricular tachyc ardia) (CMS/HCC) DX:SVT (supraventricular tac hycardia) ([facility]) Hypothyroidism DX:Hypothyroidis m Chronic back pain DX:Chronic tim k pain Cervical disc disease DX:Cervica l disc disease Gouty arthritis of great toe DX: Gouty arthritis of great toe Bladder cancer ([facility]) DX:Blad vern cancer ([facility]) Claudication ([facility]) DX:Claudi cation ([facility]) Social History Tobacco Use Types Packs/Day Years [...] Description 02/08/2025 9:10 AM EDT Office Visit [facility] [address] [place] [address] [address] [place] [phone] Rashawn Francis NP [address] [place] [address] [address] [place] [address] Health Maintenance Due Date Last Done Comments Diabetes: Annual GFR (Glomerular Filtration Rate) 1955 Diabetes: Annual Foot Exam 1965 Diabetes: Annual Retina Eye Exam 1965 RSV Immunization Adult Patients (1 - Risk 60-74 years 1-dose series) [...] Contro l Test (HGBA1C) 08/11/2022 COVID-19 Vaccine ( - 2023-2 5 season) 2024 04/16/2021, 11/20/2020, 10/21/2020 Influenza Vaccine (Season Ended) 2025 06/27/2021, 05/14/2020, 07/17/2018 DTaP,Tdap,and Td Vaccines (2 - Td or Tdap) 04/04/2027 04/04/2017 HIB Vaccines Aged Out No longer eligi ble based on patient's age to complete this topic HPV Vaccines Aged Out No longer eligi ble based on patient's age to complete this topic Hepatitis A Vaccines Aged Out No long er eligible [...] age to complete this topic Meningococcal B Vaccine Aged Out No l onger eligible based on patient's age to complete this topic RSV Immunization Patients Under 20 months Aged Out No longer eligible b ased on patient's age to complete this topic Varicella Vaccines Aged Out No longer eligible based on patient's age to complete this topic Insurance MEDICARE Care Teams Lumber Yard Worker Relationship Specialty Start Date End Date Deyvi Brantley MD [address] PCP - General 07/18/13
--- OUTSIDE RECORDS SUMMARY | 2024-12-03 17:16 | XMS_ITS | Encounter Summary ---
Author Name [facility] [place] Organization [facility] [place] Address [address] [place] [address] Care Team Providers Care Personnel Clerks Supervisor Name Role Phone MARICEL ELIAS Primary Care [...] SUPPLEMEN YAMILKA MEDEX 2 Apr 29, 2020 [id number] ALICE RUSSO PATIENT [place] MED[place] SUPPLEMEN YAMILKA MEDEX 2 Apr 29, 2020 [id number] [phone] ALICE RUSSO PATIENT BCBS [facility] CE ORGANIZ [place] SHARE ACTIV E Feb 27, 2012 [id number] [phone] ALICE RUSSO PATIENT EXPRESS SCRIPTS ([id number]) PRESCRIPT ION L4TA* Feb 27, 2012 [id number] ALICE RUSSO PATIENT EXPRESS SCRIPTS ([id number]) PRESCRIPT ION Feb 27, 2012 [id number] ALICE RUSSO PATIENT MEDICARE (WNR) MEDICARE (M) PART A Apr 29, 2020 PART A [id number] ALICE RUSSO PATIENT MEDICARE (WNR) MEDICARE (M) PART B Apr 29, 2020 PART B [id number] [phone] ALICE RUSSO PATIENT MEDICARE (WNR) MEDICARE (M) PART A Apr 29, 2020 PART A [id number] [phone] ALICE RUSSO PATIENT MEDICARE (WNR) MEDICARE (M) PART B Apr 29, 2020 PART B [id number] ALICE RUSSO PATIENT Selected Encounter This section includes the information on record at [place] for the Encounter. Date/Time Encounter Type Encounter Description Reason Provider Source Oct 23, 2024 03:30 PM OFFICE O/P EST MOD 30 MIN OPTOMETRY ICD-10-CM E11.9 Type 2 diabetes mellitus without complications BOB TIM Mainor Encounter Template Text not used by [place] Assessments - Encounter Diagnoses This section includes the primary and secondary diagnoses documented for the Encounter. Date/Time Primary/Secondary Diagnosis Diagnosis Name Provider Source Oct 24, 2024 05:32 PM PRIMARY Type 2 diabetes mellitus without complications BOB TIM [place] [facility] [place] [facility] Oct 24, 2024 05:32 PM SECONDARY Combined forms of age-related cataract, bilateral BOB TIM [place] [facility] [place] [facility] Oct 24, 2024 05:32 PM SECONDARY Meibomian gland dysfnct left eye, upper and lower eyelids BOB TIM [place] [facility] [place] [facility] Oct 24, 2024 05:32 PM SECONDARY Meibomian gland dysfnct right eye, upper and lower eyelids BOB TIM [facility] [place] [facility] Oct 24, 2024 05:32 PM SECONDARY Oth disorders of optic nerve, NEC, bilateral BOB TIM [facility] [place] [facility] Oct 24, 2024 05:32 PM SECONDARY Other rosacea BOB TIM [facility] [place] [facility] Plan of Treatment: Future Appointments (+ 6 months) and Future Tests (+/- 45 days) The Plan of Treatment section includes future care activities for the patient [facility] [place] [facility] This section includes future appointments and future orders which are active, pending or scheduled. Future Appointments This section includes appointments that were scheduled to occur 6 months from the date of the Encounter, up to a maximum of 20 appointments. The data comes from all [facility]. Appointment Date/Time Appointment Type Appointme nt Facility Name Nov 22, 2024 08:00 AM AMBULATORY - MEDICINE [facility] Nov 30, 2024 09:30 AM AMBULATORY - NONE [facility] Dec 24, 2024 08:00 AM AMBULATORY - MEDICINE [facility] Dec 24, 2024 09:30 AM AMBULATORY - MEDICINE [facility] January 07, 2025 09:00 AM AMBULATORY - MEDICINE [facility] January 24, 2025 08:30 AM AMBULATORY - MEDICINE [facility] Active, Pending, and Scheduled Orders This section includes a listing of several types of active, pending, and scheduled orders, including clinic medications orders, diagnostic test orders, procedure orders and consult orders; where the start date of the order is 45 days before the date of the Encounter or 45 days after the date of theEncounter. The data comes from all [facility]. Test Date/Time Test Type Test Details Facility Name Oct 27, 2024 12:00 AM Laboratory - Chemi stry Order PT & INR (PROTIME) BLOOD (BLUE-PLASMA) [facility] Oct 27, 2024 12:00 AM Laboratory - Chemi stry Order PTT BLOOD (BLUE-PLASMA) [facility] Oct 27, 2024 12:00 AM Laboratory - Chemi stry Order CBC AND DIFF (AUTO) BLOOD (LAV-BLOOD) [facility] Oct 27, 2024 09:25 AM Consult Order [facility]ITY [facility]-INTERVENTIONAL RADIOLOGY Cons Supervisor Transcribing Operators's Choice [facility] Nov 30, 2024 09:30 AM Imaging - Ultrasou nd Order CAROTID DUPLEX BILAT [place] [facility] [facility] Social History: Smoking Status (Most current) and Tobacco Use (All prior to encounter date) This section includes the most current, and the historical, smoking and tobacco- related health factors from the [place] facility where the Encounter took place. Current Smoking Status This section includes the most current smoking, or tobacco-related health factor, from the [place] facility where the Encounter took place. Date/Time Current Smoking Status Comment Facil ity Jun 27, 2024 11:00 AM VA-TOBACCO USE MICHELLE RY DAY CIGARETTES [facility] [place] [facility] Tobacco Use History This section includes a history of the smoking, or tobacco-related health factors, that were collected on or before the date of the Encounter. The data comes from the [place] facility where the Encounter took place. Date/Time Smoking Status/Tobacco Use Comment F acility Jun 27, 2024 11:00 AM VA-TOBACCO SCREEN FOLLOW-UP [facility] [place] [facility] Jun 27, 2024 11:00 AM VA-TOBACCO USE ADVICE [facility] [place] [facility] Jun 27, 2024 11:00 AM VA-TOBACCO USE TERRESTRIAL ECOLOGIST NO [facility] [place] [facility] Jun 27, 2024 11:00 AM VA-TOBACCO USE MICHELLE RY DAY CIGARETTES [facility] [place] [facility] Jun 27, 2024 11:00 AM VA-TOBACCO USE MED NO [facility] [place] [facility] Sep 09, 2020 08:36 AM VA-TOBACCO DOESNT USE WI 30 MIN WAKEUP [facility] [place] [facility] Sep 09, 2020 08:36 AM VA-TOBACCO USE 30 YEARS OR MORE [facility] [place] [facility] Sep 09, 2020 08:36 AM VA-TOBACCO USE ADVICE [facility] [place] [facility] Sep 09, 2020 08:36 AM VA-TOBACCO USE TERRESTRIAL ECOLOGIST NO [facility] [facility] Sep 09, 2020 08:36 AM VA-TOBACCO USE MED NO [facility] [facility] Sep 09, 2020 08:36 AM VA-TOBACCO USER EVERY DAY [facility] [place] [facility] Radiology Reports: +/- 30 days of [...] the Encounter. The data comes from all [place] treatment facilities. 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 22 images were received by the [place] National Teleradiology Program (NTP) for interpretation. FINDINGS: [...] is recommended. READING PHYSICIAN: Christiano Camacho M.D. -[id number] 10/24/2024 12:43 PST [facility] National Teleradiology Program [phone] (For Medical Practitioner Use Only) Attention Patients / Veterans: If you have questions or concerns about these test results, please contact your ordering provider or primary care team. Primary Diagnostic Code: NO ALERT REQUIRED Primary Interpreting Staff: RADIOLOGY,OUTSIDE SERVICE, Staff Physician / RADIOLOGY,OUTSIDE SERVICE [place] [facility] [place] [facility] Encounter Notes: All associated encounter notes This section contains the clinical notes associated to the Encounter. Date/Time Encounter Note(s) Provider Source Oct 23, 2024 03:41 PM OPTOMETRY NOTE: LOCAL TITLE: OPTOMETRY NOTE STANDARD TITLE: OPTOMETRY NOTE DATE OF NOTE: OCT 23, 2024@15:41 ENTRY DATE: OCT 23, 2024@15:42:01 AUTHOR: MERVIN TIM COSIGNER: URGENCY: STATUS: COMPLETED Active problems [...] disease 17. Abdominal aortic aneurysm (SNOMED CT [id number]) 18. Localized osteoarthrosis 19. Sciatica 20. Primary [...] refraction: OD: -0.75 -0.75 axis 007 OS: [place] -0.25 axis 039 Refraction: OD: No improvement [...] minutes for refraction equals 31 minutes. _Alerting [employer] tech to order glasses as noted below Sun and Yellow Tint for night driving RX INFORMATION OD -0.75 -0.75 X20 Add:+2.50 Pzm:0.00 Dir: Prz2:0.00 Dir2: OS -0.25 0.00 X Add:+2.50 Pzm:0.00 Dir: Prz2:0.00 Dir2: FITTING INFORMATION FPD: NPD: Clay:R:32.5 L:31.5 SEG HT:R:20 L:20 Tint: VA Billable Items FRAME: 3 [facility] Right Lens: POLY VA PROGRESSIVE 1.586 POLY Left Lens: POLY VA PROGRESSIVE 1.586 POLY RX INFORMATION OD -0.75 -0.75 X20 Add:+2.50 Pzm:0.00 Dir: Prz2:0.00 Dir2: OS -0.25 0.00 X Add:+2.50 Pzm:0.00 Dir: Prz2:0.00 Dir2: FITTING INFORMATION FPD: NPD: Clay:R:32.5 L:31.5 SEG HT:R: L: Tint:None Shade:Mohamud Shade 3 FRAME: FX3 [facility] Right Lens: POLY SINGLE VISION 1.586 POLY Left Lens: POLY SINGLE VISION 1.586 POLY RX INFORMATION OD -0.75 -0.75 X20 Add:+2.50 Pzm:0.00 Dir: Prz2:0.00 Dir2: OS -0.25 0.00 X Add:+2.50 Pzm:0.00 Dir: Prz2:0.00 Dir2: FITTING INFORMATION FPD: NPD: Clay:R:32.5 L:31.5 SEG HT:R:20 L:20 Tint:None Shade:Yellow Shade 2 FRAME: FX3 [facility]145 Right Lens: POLY VA PROGRESSIVE 1.586 POLY [...] this VA (local) and dispensed from another [place] or [facility] facility (remote) as well as inpatient orders [...] Remote Allergy/ADR Data available for this patient [place] [facility] [facility] METFORMIN Med Recon NoGlossary (Tool #1) [...] the patient into personal health records (i.e. [employer]) are NOT included in this list. Non-VA [...] DAILY FOR TYPE 2 DIABETES MELLITUS Rx# [id number] Last Released: 07/04/24 Qty/Days Supply: Rx Expiration [...] CARB DINNER PLEASE HOLD UNTIL REQUESTED Rx# [id number] Last Released: 08/02/24 Qty Supply: Rx Expiration Date: 05/04/25 Refills Remainin Indication: FOR DIABETES OUTPT INSULIN,ASPART(EQV-NOVLG)100U N/ML FLXPEN (Status = On Hold) INJECT DIRECTED SUBCUTANEOUSLY THREE TIMES A DAY 3 UNITS BREAKFAST, 1 UNIT PER 6 GM CARB LUNCH, AND 1 UNIT PER 8 GM CARB DINNER Rx# [id number] Last Released: Qt Supply: Rx Expiration Date: 10/11/25 Refills Remainin Indication: FOR DIABETES OUTPT INSULIN,GLARGINE 100 UNT/ML 3ML SOLOSTAR (Status = On Hold) INJECT 19 UNITS SUBCUTANEOUSLY TWICE DAILY Rx# [id number] Last Released: Supply: Rx Expiration Date: 10/11/25 Refills Remainin Indication: FOR DIABETES OUTPT INSULIN,GLARGINE-YFGN 100UNIT/ML PEN 3ML (Status = Discontinued) INJECT 20 UNITS SUBCUTANEOUSLY EVERY MORNING Rx# [id number] Last Released: 08/06/24 Qty/Days Supply: Rx Expiration Date: 05/04/25 Refills Remainin Indication: FOR DIABETES OUTPT LEVOTHYROXINE NA 175MCG TAB (Status = Active) TAKE ONE TABLET BY MOUTH EVERY MORNING 30 MINUTES BEFORE BREAKFAST FOR THYROID - TAKE ON AN EMPTY STOMACH WITH A FULL GLASS OF WATER Rx# [id number] Last Released: 09/01/24 Qty/Days Supply: Rx Expiration Date: 07/03/25 Refills Remainin Indication: FOR THYROID OUTPT LIDOCAINE 5% PATCH (Status = Active) APPLY 1 PATCH TOPICALLY ONCE DAILY FOR NERVE PAIN (LEAVE PATCH ON FOR 12 HOURS, THEN REMOVE PATCH) Rx# [id number] Last Released: 06/29/24 Qty/Days Supply: Rx Expiration [...] THREE TIMES DAILY NEEDED SENSOR FAILURE Rx# [id number] Last Released: 05/10/24 Qty/Days Supply: Rx Expiration Date: 05/04/25 Refills Remainin Indication: SENSOR FAILURE OUTPT DEPEND UNDERWEAR,MAXIMUM,MEN SM/MED (Status = ) USE 1 BRIEF DIRECTED ONCE DAILY NEEDED Rx# [id number] Last Released: 04/10/24 Qty/Days Supply: / Rx Expiration Date: 08/01/24 Refills Remainin Indication: INCONTINENCE OUTPT GLUCOSE SENSOR FREESTYLE REYES 3 (Status = Active/Suspended) USE 1 SENSOR DIRECTED EVERY 14 DAYS Rx# [id number] Last Released: 10/02/24 Qty/Days Supply: 10/26 Rx Expiration Date: 07/03/25 Refills Remainin OUTPT NEEDLE,PEN 32G,4MM (Status = ) USE 1 NEEDLE SUBCUTANEOUSLY FOUR TIMES A DAY FOR USE WITH PEN DEVICE Rx# [id number] Last Released: 05/03/24 Qty/Days Supply: / Rx Expiration Date: 07/26/24 Refills Remainin OUTPT TRANSPARENT DRESSING 2 3/8IN X 2 3/4IN (Status = Active) APPLY 1 DRESSING TOPICALLY EVERY 14 DAYS Rx# [id number] Last Released: 07/05/24 Qty/Days Supply: Rx Expiration Date: 07/04/25 Refills Remainin Declines printed copy of medication list now. /samara/ Mervin Tim OD CHIEF OF OPTOMETRY Signed: 10/24/2024 17:33 MERVIN TIM [facility]
--- OUTSIDE RECORDS SUMMARY | 2024-12-03 17:16 | XMS_ITS | Encounter Summary ---
Author Name [place] Address [address] [place] [address] Care Team Providers Care Asset Protection Detective Name Role Phone MARICEL ELIAS Primary Care [...] SUPPLEMEN YAMILKA MEDEX 2 Apr 29, 2020 [id number] ALICE RUSSO PATIENT [place]BS [place] MEDICARE SUPPLEMEN YAMILKA MEDEX 2 Apr 29, 2020 [id number] [phone] ALICE RUSSO PATIENT BCBS [facility]LY [facility] CE ORGANIZ [facility] SHARE ACTIV E Feb 27, 2012 [id number] [phone] ALICE RUSSO PATIENT EXPRESS SCRIPTS ([id number]) PRESCRIPT ION L4TA* Feb 27, 2012 L4TA [id number] ALICE RUSSO PATIENT EXPRESS SCRIPTS ([id number]) PRESCRIPT ION Feb 27, 2012 L4TA [id number] ALICE RUSSO PATIENT MEDICARE (WNR) MEDICARE (M) PART A Apr 29, 2020 PART A [id number] ALICE RUSSO PATIENT MEDICARE (WNR) MEDICARE (M) PART B Apr 29, 2020 PART B [id number] ALICE RUSSO PATIENT MEDICARE (WNR) MEDICARE (M) PART A Apr 29, 2020 PART A [id number] [phone] ALICE RUSSO PATIENT MEDICARE (WNR) MEDICARE (M) PART B Apr 29, 2020 PART B [id number] ALICE RUSSO PATIENT Selected Encounter This section includes the information on record at [place] for the Encounter. 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 Plan of Treatment: Future Appointments (+ 6 months) and Future Tests (+/- 45 days) The Plan of Treatment section includes future care activities for the patient from all [place] treatmentfacilities. This section includes future appointments and future orders which are active, pending or scheduled. Future Appointments This section includes appointments that were scheduled to occur 6 months from the date of the Encounter, up to a maximum of 20 appointments. The data comes from all [place] treatment facilities. Appointment Date/Time Appointment Type Appointme nt Facility Name Feb 02, 2024 12:30 PM AMBULATORY - NONE [place] [facility] Apr 02, 2024 09:00 AM AMBULATORY - [facility]IC[facility] May 03, 2024 08:30 AM [facility] - [facility]ICINE [facility] May 03, 2024 03:00 PM [facility] Jun 27, 2024 11:00 AM AMBULATORY - MEDICINE [place] C [facility] Jul 02, 2024 10:30 AM AMBULATORY - MEDICINE [place] C [facility] Jul 04, 2024 09:00 AM AMBULATORY - MEDICINE [facility] Lab Results: +/- 30 days of the encounter This section includes the Chemistry and Hematology Lab Results on record with [place] for the patient. Radiology Reports and Pathology Reports are provided separately, in subsequent sections. Lab Results This section contains the Chemistry/Hematology Results that were resulted 30 days before or 30 daysafter the date of the Encounter. Date/Time Source Result Type Result - Unit Interpretation Reference Range Comment January 04, 2024 01:53 PM [facility] THYROID T4 FREE(FT4) (WROX) Specimen Type: SERUM No comment entered. Ordering Provider: COMPA ELLIS Report Released Date/Time: January 03, 2024 08:02 AM Reporting Lab: [facility] [address] [facility] [address] Performing Lab: [facility] [address] [facility] [address] THYROID T4 FREE(FT4) (WROX) 1.25 ng/dL 0.6-1.6 January 04, 2024 01:53 PM [facility] HEMOGLOBIN A1C PANEL Specimen Type: BLOOD [...] January 03, 2024 08:02 AM Reporting Lab: [facility] [address] [facility] [address] Performing Lab: [address] [address] HEMOGLOBIN A1C 7.4 H 4.0-5.6 January 04, 2024 01:53 PM [facility] CALCIUM Specimen Type: SERUM No comment entered. Ordering Provider: COMPA ELLIS Report Released Date/Time: January 03, 2024 08:02 AM Reporting Lab: [facility] [address] [facility] [address] Performing Lab: [facility] [address] [facility] [address] CALCIUM 8.5 mg/dL 8.5-10.2 January 04, 2024 01:53 PM [facility] VITAMIN D (25-OH) Specimen Type: SERUM No comment entered. Ordering Provider: COMPA ELLIS Report Released Date/Time: January 03, 2024 08:02 AM Reporting Lab: [facility] [address] [facility] [address] Performing Lab: [address] [address] VITAMIN D (25-OH) 44 ng/mL 20-50 January 04, 2024 01:53 PM [facility] MICROALBUMIN CREATININE RATIO PANEL Specimen Type: URINE No comment entered. Ordering Provider: COMPA ELLIS Report Released Date/Time: January 03, 2024 08:02 AM Reporting Lab: [facility] [address] [facility] [address] Performing Lab: [facility] [address] [address] MICROALBUMIN/C REATININE RATIO 15.4 mg/g 0-29.9 MICROALBUMIN,Q UANTITATIVE 0.8 mg/dL RR UNAVAIL CREATININE URINE 51.94 mg/dL January 04, 2024 01:53 PM [facility] PTH INTACT Specimen Type: SERUM No comment entered. Ordering Provider: COMPA ELLIS Report Released Date/Time: January 03, 2024 08:02 AM Reporting Lab: [facility] [address] [facility] [address] Performing Lab: [address] [address] PTH INTACT 72.1 pg/mL H 10-65 January 04, 2024 01:53 PM [facility] LIPID PANEL FASTING Specimen Type: SERUM No comment entered. Ordering Provider: COPMA ELLIS Report Released Date/Time: January 03, 2024 08:02 AM Reporting Lab: [facility] [address] [facility] [address] Performing Lab: [facility] [address] [facility] [address] CHOLESTEROL 106 mg/dL TRIGLYCERIDE 119 mg/dL 0-150 LDL calculated 37 mg/dL 0-129 CHOL/HDL 2.4 HDL CHOLESTEROL 45 mg/dL 40-60 January 04, 2024 01:53 PM [facility] TSH Specimen Type: SERUM No comment entered. Ordering Provider: COMPA ELLIS Report Released Date/Time: January 03, 2024 08:02 AM Reporting Lab: [facility] [address] [facility] [address] Performing Lab: [address] [address] TSH 2.11 u[IU]/mL 0.35-5.00 January 04, 2024 01:53 PM [facility] BASIC METABOLIC PANEL (fasting) Specimen Type: SERUM No comment entered. Ordering Provider: COMPA ELLIS Report Released Date/Time: January 03, 2024 08:02 AM Reporting Lab: [address] [address] Performing Lab: [address] [address] UREA NITROGEN 18 mg/dL 7-25 GLUCOSE 197 [...] and tobacco- related health factors from the [place] facility where the Encounter took place. Current Smoking Status This section includes the most current smoking, or tobacco-related health factor, from the [place] facility where the Encounter took place. Date/Time Current Smoking Status Comment Guerrero ity Sep 09, 2020 08:36 AM VA-TOBACCO USER EVERY DAY [facility] Tobacco Use History This section includes a history of the smoking, or tobacco-related health factors, that were collected on or before the date of the Encounter. The data comes from the [place] facility where the Encounter took place. Date/Time Smoking Status/Tobacco Use Comment F acility Sep 09, 2020 08:36 AM VA-TOBACCO USE 30 YEARS OR MORE [facility] Sep 09, 2020 08:36 AM VA-TOBACCO USE ADVICE 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 Sep 09, 2020 08:36 AM VA-TOBACCO USE MED NO [facility] Sep 09, 2020 08:36 AM VA-TOBACCO USER EVERY DAY [facility] Radiology Reports: +/- 30 days of [...] the Encounter. The data comes from all [place] treatment facilities. Date/Time Radiology Report Provider Source Feb 02, 2024 12:42 PM RENAL AND BLADDER ULTRASOUND: ALICE RUSSO [id number] -1955 M Exm Date: FEB 02, 2024@12:42 Req Phys: COMPA ELLIS Loc: [facility]/ENDOCRINE (Req'g Loc) Img Loc: ULTRASOUND Service: Unknown [facility] , (Case 426 COMPLETE) ULTRASOUND KIDNEYS (US Detailed) CPT:09051 Reason for Study: hyperparathyroidism (Case 427 COMPLETE) ULTRASOUND URINARY BLADDER (US Detailed) CPT:44030 Clinical History: Report Status: Verified Date Reported: FEB 02, 2024 Date Verified: FEB 02, 2024 Home Theater Installer E-Sig:/ES/GRETCHEN SHEPHERD JR Report: Study: Genitourinary ultrasound. [...] SHEPHERD JR, Radiologist (Greg) /GRETCHEN ESTEVEZ JR [facility] Encounter Notes: All associated encounter notes [...] - DX: DM associated with pancreatic disease identified with 2 identifiers: [X] Full Name [X] Date of [ ] Address [ ] [place] ID Card PATIENT PHONE - [phone] PHONE NUMBER [CELLULAR] - Is patient phone number correct, if not, enter below: 's phone number: ALICE RUSSO [address] [place], [place], [address] MOST RECENT LABS: HEMOGLOBIN A1C TREND Collection [...] 70 to 180 2.Applying the sensor. SN: [id number] EXP.DATE:06/28/2024 3.Set up alarms: Low @ 80 High @ 280 4.Sensor placed on back of right upper arm 5.Starting the 14 day sensor 6.Checking/scanning/must scan at least once every 8 hours- recommendation to scan 10-15 x daily 7.Reviewing the history on the reader ASSESSMENT: [place] did very well with placement of sensor. Has worn sensor in the past so did remember some of the steps. Does not have computer accessibility to upload sensor at home. wILL BRING READER TO APPOINTMENT FOR UPLOAD. /samara/ ORQUIDEA FOX RN Signed: 01/25/2024 11:26 ORQUIDEA FOX CNTRL WSTRN [facility]
--- OUTSIDE RECORDS SUMMARY | 2024-12-03 17:16 | XMS_ITS | Encounter Summary ---
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 Name Role Phone MARICEL ELIAS Primary [...] SUPPLEMEN YAMILKA MEDEX 2 Apr 29, 2020 [id number] ALICE RUSSO PATIENT BCBS [place] MEDICARE SUPPLEMEN YAMILKA MEDEX 2 Apr 29, 2020 [id number] [phone] ALICE RUSSO PATIENT BCBS [facility] CE ORGANIZ [facility] SHARE ACTIV E Feb 27, 2012 [id number] ALICE RUSSO PATIENT [employer] ([id number]) PRESCRIPT ION L4TA* Feb 27, 2012 [id number] ALICE RUSSO PATIENT [employer] ([id number]) PRESCRIPT ION Feb 27, 2012 [id number] [id number] ALICE RUSSO PATIENT MEDICARE (WNR) MEDICARE (M) PART A Apr 29, 2020 PART A [id number] [phone] ALICE RUSSO PATIENT MEDICARE (WNR) MEDICARE (M) PART B Apr 29, 2020 PART B [id number] ALICE RUSSO PATIENT MEDICARE (WNR) MEDICARE (M) PART A Apr 29, 2020 PART A [id number] ALICE RUSSO PATIENT MEDICARE (WNR) MEDICARE (M) PART B Apr 29, 2020 PART B [id number] ALICE RUSSO PATIENT Selected Encounter This section includes the information on record at [place] for the Encounter. 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 [facility] [place] [facility] January 05, 2024 12:36 PM SECONDARY Disorder of bone density and structure, unspecified [facility] [place] [facility] January 05, 2024 12:36 PM SECONDARY Essential (primary) hypertension [facility] [place] [facility] January 05, 2024 12:36 PM SECONDARY Hyperlipidemia, unspecified [facility] [place] [facility] January 05, 2024 12:36 PM SECONDARY Hyperparathyroidis m, unspecified [facility] [place] [facility] January 05, 2024 12:36 PM SECONDARY Hypothyroidism, unspecified [facility] [place] [facility] January 05, 2024 12:36 PM SECONDARY Overweight [facility] [place] [facility] Plan of Treatment: Future Appointments (+ 6 months) and Future Tests (+/- 45 days) The Plan of Treatment section includes future care activities for the patient [facility] [place] [facility] This section includes future appointments and future orders which are active, pending or scheduled. Future Appointments This section includes appointments that were scheduled to occur 6 months from the date of the Encounter, up to a maximum of 20 appointments. The data comes from all [place] treatment facilities. Appointment Date/Time Appointment Type Appointme nt Facility Name January 25, 2024 11:00 AM AMBULATORY - [place]ICINE [place] [facility] [place] [facility] Feb 02, 2024 12:30 PM AMBULATORY - NONE [place] [facility] [place] [facility] Apr 02, 2024 09:00 AM AMBULATORY [place]IC[place] [facility] [place] [facility] May 03, 2024 08:30 AM [facility]ULATORY - MEDICINE [facility] May 03, 2024 03:00 PM AMBULATORY - MEDICINE [facility] Jun 27, 2024 11:00 AM AMBULATORY [place]IC[place] [facility] [place] [facility] Jul 02, 2024 10:30 AM AMBUL[place]ORY [place] [facility] [place] [facility] Jul 04, 2024 09:00 AM [facility] [place] [facility] Lab Results: +/- 30 days of the encounter This section includes the Chemistry and Hematology Lab Results on record with [place] for the patient. Radiology Reports and Pathology Reports are provided separately, in subsequent sections. Lab Results This section contains the Chemistry/Hematology Results that were resulted 30 days before or 30 daysafter the date of the Encounter. Date/Time Source Result Type Result - Unit Interpretation Reference Range Comment January 04, 2024 01:53 PM [facility] THYROID T4 FREE(FT4) (WROX) Specimen Type: SERUM No comment entered. Ordering Provider: COMPA ELLIS Report Released Date/Time: January 03, 2024 08:02 AM Reporting Lab: [facility] [address] [address] Performing Lab: [facility] [address] [facility] [address] THYROID T4 FREE(FT4) (WROX) 1.25 ng/dL 0.6-1.6 January 04, 2024 01:53 PM [facility] HEMOGLOBIN A1C PANEL Specimen Type: BLOOD [...] January 03, 2024 08:02 AM Reporting Lab: [facility] [address] [address] Performing Lab: [address] [address] HEMOGLOBIN A1C 7.4 H 4.0-5.6 January 04, 2024 01:53 PM [facility] CALCIUM Specimen Type: SERUM No comment entered. Ordering Provider: COMPA ELLIS Report Released Date/Time: January 03, 2024 08:02 AM Reporting Lab: [facility] [address] [address] Performing Lab: [address] [address] CALCIUM 8.5 mg/dL 8.5-10.2 January 04, 2024 01:53 PM [facility] VITAMIN D (25-OH) Specimen Type: SERUM No comment entered. Ordering Provider: COMPA ELLIS Report Released Date/Time: January 03, 2024 08:02 AM Reporting Lab: [facility] [address] [facility] [address] Performing Lab: [address] [address] VITAMIN D (25-OH) 44 ng/mL 20-50 January 04, 2024 01:53 PM [facility] MICROALBUMIN CREATININE RATIO PANEL Specimen Type: URINE No comment entered. Ordering Provider: COMPA ELLIS Report Released Date/Time: January 03, 2024 08:02 AM Reporting Lab: [address] [place] [address] Performing Lab: [facility] [address] [address] MICROALBUMIN/C REATININE RATIO 15.4 mg/g 0-29.9 MICROALBUMIN,Q UANTITATIVE 0.8 mg/dL RR UNAVAIL CREATININE URINE 51.94 mg/dL January 04, 2024 01:53 PM [facility] PTH INTACT Specimen Type: SERUM No comment entered. Ordering Provider: COMPA ELLIS Report Released Date/Time: January 03, 2024 08:02 AM Reporting Lab: [facility] [address] [facility] [address] Performing [facility]: [facility] [address] [address] PTH INTACT 72.1 pg/mL H 10-65 January 04, 2024 01:53 PM [facility] LIPID PANEL FASTING Specimen Type: SERUM No comment entered. Ordering Provider: COMPA ELLIS Report Released Date/Time: January 03, 2024 08:02 AM Reporting Lab: [facility] [address] [address] Performing Lab: [facility] [address] [address] CHOLESTEROL 106 mg/dL TRIGLYCERIDE 119 mg/dL 0-150 LDL calculated 37 mg/dL 0-129 CHOL/HDL 2.4 HDL CHOLESTEROL 45 mg/dL 40-60 January 04, 2024 01:53 PM [facility] TSH Specimen Type: SERUM No comment entered. Ordering Provider: COMPA ELLIS Report Released Date/Time: January 03, 2024 08:02 AM Reporting Lab[facility] [address] [address] Performing Lab: [facility] [address] [address] TSH 2.11 u[IU]/mL 0.35-5.00 January 04, 2024 01:53 PM [facility] BASIC METABOLIC PANEL (fasting) Specimen Type: SERUM No comment entered. Ordering Provider: COMPA ELLIS Report Released Date/Time: January 03, 2024 08:02 AM Reporting Lab: [facility] [address] [address] Performing Lab: [facility] [address] [address] UREA NITROGEN 18 mg/dL 7-25 GLUCOSE 197 [...] 132/74 16 95 0 68 190 29 [facility] Social History: Smoking Status (Most current) and Tobacco Use (All prior to encounter date) This section includes the most current, and the historical, smoking and tobacco- related health factors from the [place] facility where the Encounter took place. Current Smoking Status This section includes the most current smoking, or tobacco-related health factor, from the [place] facility where the Encounter took place. Date/Time Current Smoking Status Comment Guerrero ity Sep 09, 2020 08:36 AM [place]-TOBACCO USER EVERY DAY [facility] Tobacco Use History This section includes a history of the smoking, or tobacco-related health factors, that were collected on or before the date of the Encounter. The data comes from the [place] facility where the Encounter took place. 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 The data comes from all [place] treatment facilities. Date/Time Radiology Report Provider Source Feb 02, 2024 12:42 PM RENAL AND BLADDER ULTRASOUND: ALICE RUSSO [id number] [id number] M Exm Date: FEB 02, 2024@12:42 Req Phys: COMPA ELLIS Loc: NHM/ENDOCRINE (Req'g Loc) Img Loc: ULTRASOUND Service: Unknown [facility] , (Case 426 COMPLETE) ULTRASOUND KIDNEYS (US Detailed) CPT:29875 Reason for Study: hyperparathyroidism (Case 427 COMPLETE) ULTRASOUND URINARY BLADDER (US Detailed) CPT:97801 Clinical History: Report Status: Verified Date Reported: FEB 02, 2024 Date Verified: FEB 02, 2024 Wet Primer Powder Blender E-Sig:/ES/GRETCHEN SHEPHERD JR Report: Study: Genitourinary ultrasound. [...] Primary Interpreting Staff: GRETCHEN SHEPHERD JR, Radiologist (Wet Primer Powder Blender) /GRETCHEN ESTEVEZ JR [facility] Encounter Notes: All associated encounter notes This section contains the clinical notes associated to the Encounter. 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 Thank you. /samara/ COMPA ELLIS MD STAFF PHYSICIAN Signed: 01/06/2024 15:06 Receipt Acknowledged By: 01/10/2024 09:31 /samara/ MIRNA GUERRA, RN,BSN, [facility] DIABETES PIPELINES SUPERINTENDENT, RN --- Original Document --- 01/03/24 NOTE: [...] disease 16. Abdominal aortic aneurysm (SNOMED CT 318493318) 17. Localized osteoarthrosis 18. Sciatica 19. Primary [...] 2 3/4IN APPLY 1 DRESSING ACTIVE TOPICALLY [id number] Non-VA ASPIRIN 81MG EC TAB 81MG BY [...] Remote Allergy/ADR Data available for this patient [facility] MET[employer]MIN Med Recon NoGlossary (Tool #1) [...] the patient into personal health records (i.e. [place] DEPT.) are NOT included in this list. Non-VA [...] recommended by VA provider. Medication prescribed by Non-[place] provider. OUTPT EMPAGLIFLOZIN 25MG TAB (Status = Active) TAKE ONE TABLET BY MOUTH ONCE DAILY FOR DIABETES Rx# [id number] Last Released: 10/31/23 Qty/ Supply: Rx Expiration Date: 05/12/24 Refills Remainin Non-VA FAMOTIDINE 10MG TAB TAKE ONE TABLET BY MOUTH AT BEDTIME Medication prescribed by Non-[place] provider. OUTPT INSULIN,ASPART(EQV-NOVLG)100UN /ML FLXPEN (Status = Active) INJECT INSULIN SUBCUTANEOUSLY THREE TIMES A DAY FOR DIABETES FOLLOWS: 1 UNIT PER 7 GM OF CARBS AT BREAKFAST, 1 UNIT PER 6 GM OF CARBS AT LUNCH, 1 UNIT PER 8 GM OF CARBS AT DINNER. Rx# [id number] Last Released: 12/06/23 Qty/Days Supply: Rx Expiration Date: 06/08/24 Refills Remainin Indication: FOR DIABETES OUTPT INSULIN,GLARGINE-YFGN 100UNIT/ML PEN 3ML (Status = Active) INJECT 26 UNITS SUBCUTANEOUSLY EVERY MORNING FOR DIABETES Rx# [id number] Last Released: 12/07/23 Qty/Days Supply: Rx Expiration Date: 06/08/24 Refills Remainin Indication: FOR DIABETES OUTPT LEVOTHYROXINE NA (SYNTHROID) 175MCG TAB (Status = Active) TAKE ONE TABLET BY MOUTH EVERY MORNING 30 MINUTES BEFORE BREAKFAST FOR THYROID FOR THYROID - TAKE ON AN EMPTY STOMACH WITH A FULL GLASS OF WATER Rx# [id number] Last Released: 11/30/23 Qty/Days Supply: Rx Expiration [...] MOUTH TWICE DAILY FOR NUTRITIONAL SUPPLEMENTATION Rx# [id number] Last Released: 04/15/23 Qty/Days Supply: 72 Rx Expiration Date: 11/13/23 Refills Remainin Indication: FOR NUTRITIONAL SUPPLEMENTATION OUTPT ONDANSETRON HCL 4MG TAB (Status = Active) TAKE ONE TABLET BY MOUTH TWICE DAILY NEEDED FOR NAUSEA AND VOMITING Rx# [id number] Last Released: 10/10/23 Qty/Days Supply: 60 Rx [...] THREE TIMES DAILY NEEDED SENSOR FAILURE Rx# [id number] Last Released: 11/03/23 Qty/Days Supply: 100/30 Rx Expiration Date: 10/21/24 Refills Remainin Indication: SENSOR FAILURE OUTPT DEPEND UNDERWEAR,MAXIMUM,MEN SM/MED (Status = Active) USE 1 BRIEF DIRECTED ONCE DAILY NEEDED Rx# [id number] Last Released: 12/05/23 Qty/Days Supply: 76 Rx Expiration Date: 08/01/24 Refills Remainin Indication: INCONTINENCE OUTPT GLUCOSE SENSOR FREESTYLE REYES 2 (Status = Discontinued) USE 1 SENSOR DIRECTED EVERY 14 DAYS Rx# [id number] Last Released: 12/02/23 Qty/Days Supply: 10/26 Rx Expiration Date: 07/07/24 Refills Remainin OUTPT GLUCOSE SENSOR FREESTYLE REYES 2 (Status = Active) USE 1 SENSOR DIRECTED EVERY 14 DAYS Rx# [id number] Last Released: 12/13/23 Qty/Days Supply: 10/26 Rx Expiration Date: 12/08/24 Refills Remainin OUTPT NEEDLE,PEN 32G,4MM (Status = Active) USE 1 NEEDLE SUBCUTANEOUSLY FOUR TIMES A DAY FOR USE WITH PEN DEVICE Rx# [id number] Last Released: 07/28/23 Qty/Days Supply: 400/90 Rx Expiration Date: 07/26/24 Refills Remainin OUTPT TRANSPARENT DRESSING 2 3/8IN X 2 3/4IN (Status = Active) APPLY 1 DRESSING TOPICALLY [id number] Rx# [id number] Last Released: 12/13/23 Qty/Days Supply: Rx Expiration Date: 12/13/24 Refills RemaininMauro ELLIS MD STAFF PHYSICIAN Signed: 01/05/2024 12:36 01/05/2024 ADDENDUM STATUS: COMPLETED WHOLE HEALTH COACHING SKILLS Coaching or Motivational Interviewing skills used. /samara/ COMPA ELLIS MD STAFF PHYSICIAN Signed: 01/05/2024 12:38 COMPA ELLIS [facility] January 03, 2024 07:59 AM PHYSICIAN NOTE: [...] disease 16. Abdominal aortic aneurysm (SNOMED CT [id number]) 17. Localized osteoarthrosis 18. Sciatica 19. Primary [...] 2 3/4IN APPLY 1 DRESSING ACTIVE TOPICALLY [id number] Non-VA ASPIRIN 81MG EC TAB 81MG BY [...] of active outpatient prescriptions dispensed from this [place] (local) and dispensed from another [place] or DoD facility (remote) as well as [...] Remote Allergy/ADR Data available for this patient [facility] Med Recon NoGlossary (Tool #1) INCLUDED IN THIS LIST: Alphabetical list of active outpatient prescriptions dispensed from this [place] (local) and dispensed from another VA or [...] the patient into personal health records (i.e. [place] DEPT.) are NOT included in this list. Non-VA medications documented outside this [place], remote inpatient orders (regardless of status) and [...] BY MOUTH ONCE DAILY FOR DIABETES Rx# [id number] Last Released: 10/31/23 Qty/Days Supply: Rx Expiration [...] 8 GM OF CARBS AT DINNER. Rx# [id number] Last Released: 12/06/23 Qty/Days Supply: Rx Expiration Date: 06/08/24 Refills Remainin Indication: FOR DIABETES OUTPT INSULIN,GLARGINE-YFGN 100UNIT/ML PEN 3ML (Status = Active) INJECT 26 UNITS SUBCUTANEOUSLY EVERY MORNING FOR DIABETES Rx# [id number] Last Released: 12/07/23 Qty/Days Supply: Rx Expiration Date: 06/08/24 Refills Remainin Indication: FOR DIABETES OUTPT LEVOTHYROXINE NA (SYNTHROID) 175MCG TAB (Status = Active) TAKE ONE TABLET BY MOUTH EVERY MORNING 30 MINUTES BEFORE BREAKFAST FOR THYROID FOR THYROID - TAKE ON AN EMPTY STOMACH WITH A FULL GLASS OF WATER Rx# [id number] Last Released: 11/30/23 Qty/Days Supply: Rx Expiration [...] MOUTH TWICE DAILY FOR NUTRITIONAL SUPPLEMENTATION Rx# [id number] Last Released: 04/15/23 Qty/Days Supply: 72 Rx Expiration Date: 11/13/23 Refills Remainin Indication: FOR NUTRITIONAL SUPPLEMENTATION OUTPT ONDANSETRON HCL 4MG TAB (Status = Active) TAKE ONE TABLET BY MOUTH TWICE DAILY NEEDED FOR NAUSEA AND VOMITING Rx# [id number] Last Released: 10/10/23 Qty/Days Supply: 6030 Rx [...] THREE TIMES DAILY NEEDED SENSOR FAILURE Rx# [id number] Last Released: 11/03/23 Qty/Days Supply: 100/30 Rx Expiration Date: 10/21/24 Refills Remainin Indication: SENSOR FAILURE OUTPT DEPEND UNDERWEAR,MAXIMUM,MEN SM/MED (Status = Active) USE 1 BRIEF DIRECTED ONCE DAILY NEEDED Rx# [id number] Last Released: 12/05/23 Qty/Days Supply: 76 Rx Expiration Date: 08/01/24 Refills Remainin Indication: INCONTINENCE OUTPT GLUCOSE SENSOR FREESTYLE REYES 2 (Status = Discontinued) USE 1 SENSOR DIRECTED EVERY 14 DAYS Rx# [id number] Last Released: 12/02/23 Qty/Days Supply: 10/26 Rx Expiration Date: 07/07/24 Refills Remainin OUTPT GLUCOSE SENSOR FREESTYLE REYES 2 (Status = Active) USE 1 SENSOR DIRECTED EVERY 14 DAYS Rx# [id number] Last Released: 12/13/23 Qty/Days Supply: 10/26 Rx Expiration Date: 12/08/24 Refills Remainin OUTPT NEEDLE,PEN 32G,4MM (Status = Active) USE 1 NEEDLE SUBCUTANEOUSLY FOUR TIMES A DAY FOR USE WITH PEN DEVICE Rx# [id number] Last Released: 07/28/23 Qty/Days Supply: 400/90 Rx Expiration Date: 07/26/24 Refills Remainin OUTPT TRANSPARENT DRESSING 2 3/8IN X 2 3/4IN (Status = Active) APPLY 1 DRESSING TOPICALLY [id number] Rx# [id number] Last Released: 12/13/23 Qty/Days Supply: Rx Expiration Date: 12/13/24 Refills Remainin bill/ COMPA ELLIS MD STAFF PHYSICIAN Signed: 01/05/2024 12:36 01/05/2024 ADDENDUM STATUS: COMPLETED WHOLE HEALTH COACHING SKILLS Coaching or Motivational Interviewing skills used. 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 Thank you. /odell ELLIS MD STAFF PHYSICIAN Signed: 01/06/2024 15:06 Receipt Acknowledged By: * AWAITING SIGNATURE * MIRNA GUERRA [facility]
--- OUTSIDE RECORDS SUMMARY | 2024-12-03 17:16 | XMS_ITS | Clinical Summary ---
Author Organization [employer] Address [address] [place] [address] Care Team Providers Care Prize Coordinator Name Role Phone Unavailable Primary Care Provider [...] MG tablet 4 mg. 9 Active Viokace 28475-70235 units tablet Take by mouth. Ac tive tamsulosin (Flomax) 0.4 MG 24 hr capsule Take by mouth. 1 Active warfarin (Coumadin) 5 MG tablet 3 Active Sodium Fluoride (PreviDent 5000 Booster Plus) 1.1 % paste [place] teeth for 2 minutes, morning and night. [...] see Chronic Pancreatitis specialistend of 02/2019 at [facility] in [place] Other chronic pancreatitis 01/24/2024 Class 1 obesity [...] Comment: Primarily Knees, Low Back; R Knee [facility] 2015 Entered By: JUAN MARISCAL Comment: has seen Private Ortho; Received Inj's Knees Low bone density 01/24/2024 Meniere's disease, unspecified ear 01/24/2024 Other peripheral vertigo, unspecified ear 2023 Meniere's disease 01/24/2024 Overview (01/24/2024): Oct 14, 2016 Entered By: JUAN MARISCAL Comment: Ativan Abates Acute Sx; is Severe (gets Drop Attacks )Oct 14, 2016 Entered By: JUAN MARISCAL Comment: Saw ENT, [facility]; also do PT at [facility] in NOV 12 Mixed hyperlipidemia 01/24/2024 Tinea [...] Screening 1973 Diabetes: Urine Protein Screening 1974 RSV Patients and Patients Aged 60 [...] Relevant to Health Maintenance Insurance DENTAL - [facility]
--- OUTSIDE RECORDS SUMMARY | 2024-12-03 17:16 | XMS_ITS | Encounter Summary ---
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 Name Role Phone MARICEL ELIAS Primary Care [...] SUPPLEMEN YAMILKA MEDEX 2 Apr 29, 2020 [id number] ALICE RUSSO PATIENT [place] SUPPLEMEN YAMILKA MEDEX 2 Apr 29, 2020 [id number] ALICE RUSSO PATIENT BCBS [facility] ACTIV E Feb 27, 2012 [id number] ALICE RUSSO PATIENT [employer] ([id number]) PRESCRIPT ION L4TA* Feb 27, 2012 L4TA [id number] ALICE RUSSO PATIENT [employer] ([id number]) PRESCRIPT ION Feb 27, 2012 L4TA [id number] ALICE RUSSO PATIENT MEDICARE (WNR) MEDICARE (M) PART A Apr 29, 2020 PART A [id number] [phone] ALICE RUSSO PATIENT MEDICARE (WNR) MEDICARE (M) PART B Apr 29, 2020 PART B [id number] ALICE RUSSO PATIENT MEDICARE (WNR) MEDICARE (M) PART A Apr 29, 2020 PART A [id number] ALICE RUSSO PATIENT MEDICARE (WNR) MEDICARE (M) PART B Apr 29, 2020 PART B [id number] [phone] ALICE RUSSO PATIENT Selected Encounter This section includes the information on record at [place] for the Encounter. Date/Time Encounter Type Encounter Description Reason Pro vider Source Mar 16, 2024 01:36 PM Outpatient Encounter ADMIN PAT ACTIVTIES (MASNONCT) [facility] Encounter Template Text not used by [place] Plan of Treatment: Future Appointments (+ 6 months) and Future Tests (+/- 45 days) The Plan of Treatment section includes future care activities for the patient from all [place] treatmentfacilities. This section includes future appointments and future orders which are active, pending or scheduled. Future Appointments This section includes appointments that were scheduled to occur 6 months from the date of the Encounter, up to a maximum of 20 appointments. The data comes from all [place] treatment facilities. Appointment Date/Time Appointment Type Appointme nt Facility Name Apr 02, 2024 09:00 AM AMBULATORY - MEDICINE [facility] [facility] May 03, 2024 08:30 AM [facility] May 03, 2024 03:00 PM [facility] [place]IC[place] Jun 27, 2024 11:00 AM AMBULATORY - MEDICINE [facility] [place] [facility] Jul 02, 2024 10:30 AM AMBULATORY - MEDICINE [facility] [place] [facility] Jul 04, 2024 09:00 AM AMBULATORY - MEDICINE [facility] [place] [facility] Sep 06, 2024 03:00 PM [facility] Lab Results: +/- 30 days of the encounter This section includes the Chemistry and Hematology Lab Results on record with [place] for the patient. Radiology Reports and Pathology Reports are provided separately, in subsequent sections. Lab Results This section contains the Chemistry/Hematology Results that were resulted 30 days before or 30 daysafter the date of the Encounter. Date/Time Source Result Type Result - Unit Interpretation Reference Range Comment Mar 28, 2024 10:32 AM [facility] HEMOGLOBIN A1C PANEL Specimen Type: BLOOD Comment: [...] January 05, 2024 12:35 PM Reporting Lab: [address] [address] Performing Lab: [address] [address] HEMOGLOBIN A1C 7.3 H 4.0-5.6 Mar 28, 2024 10:32 AM [facility] CALCIUM Specimen Type: SERUM No comment entered. Ordering Provider: COMPA ELLIS Report Released Date/Time: January 05, 2024 12:35 PM Reporting Lab: [facility] [address] [facility] [address] Performing Lab: [address] [address] CALCIUM 8.9 mg/dL 8.5-10.2 Mar 28, 2024 10:32 AM [facility] VITAMIN D (25-OH) Specimen Type: SERUM No comment entered. Ordering Provider: COMPA ELLIS Report Released Date/Time: January 05, 2024 12:35 PM Reporting Lab: [address] [address] Performing Lab: [address] [address] VITAMIN D (25-OH) 40 ng/mL 20-50 Mar 28, 2024 10:32 AM [facility] BASIC METABOLIC PANEL (non-fasting) Specimen Type: SERUM No comment entered. Ordering Provider: COMPA ELLIS Report Released Date/Time: January 05, 2024 12:35 PM Reporting [facility] [address] [facility] [facility] [address] Performing Lab: [facility] [address] [facility] [facility] [address] UREA NITROGEN 12 mg/dL 7-25 GLUCOSE 107 [...] and tobacco- related health factors from the [place] facility where the Encounter took place. Current Smoking Status This section includes the most current smoking, or tobacco-related health factor, from the [place] facility where the Encounter took place. Date/Time Current Smoking Status Comment Guerrero ity Sep 09, 2020 08:36 AM VA-TOBACCO USE 30 YEARS OR MORE [facility] Tobacco Use History This section includes a history of the smoking, or tobacco-related health factors, that were collected on or before the date of the Encounter. The data comes from the [place] facility where the Encounter took place. 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 Date/Time Encounter Note(s) Provider Source Mar 16, 2024 01:36 PM PHARMACY NOTE: LOCAL TITLE: PHARMACY CUSTOMER CARE MEDICATION RENEWAL STANDARD TITLE: PHARMACY NOTE DATE OF NOTE: MAR 16, 2024@13:36 ENTRY DATE: MAR 16, 2024@13:36:44 AUTHOR: LACHO FLORES V EXP COSIGNER: URGENCY: STATUS: COMPLETED Date: Feb Division: [place] Pt referred by Pharmacy Call Center for medication renewal: Non-controlled/maintenanc e medication Medications requested: [id number]$ LEVOTHYROXINE NA (SYNTHROID) 175MCG TAB Defer to specialty clinic To be mailed . Please review and renew if appropriate. *This note was generated by [facility] Pharmacy Customer Care. If you have any questions or need assistance, do not contact this author. Please refer all questions to your local, on-site pharmacy departments. /samara/ LACHO FLORES CPhT Group Therapy Counselor, [place]/Pharmacy Customer Care Signed: 03/16/2024 13:37 Receipt Acknowledged By: 03/16/2024 13:41 /samara/ COMPA ELLIS MD STAFF PHYSICIAN LACHO FLORES V [place] [facility]
--- OUTSIDE RECORDS SUMMARY | 2024-12-03 17:16 | XMS_ITS | Continuity of Care Document ---
Author Name [facility] Organization [facility] Care Team Providers Care Child Development Teacher Name Role Phone [facility] Unavailable Unavailable Problems Combined list of problems from Department of Defense and Veterans Affairs facilities. It does not include entries that were removed or entered in error. Problem Status Onset Date Problem Type Date of Resolution Comments Source Abdominal aortic aneurysm (SNOMED CT [id number]) Active Condition Apr 04, 2017 Entered By: ERIC MCINTOSH Comment: Dx'd 2015: is < 3.0 CM as of AUG 13; follows w/ Private VascularAug 2017 Entered By: ERIC MCINTOSH Comment: 03/31/18: Abd CT - 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 [place] Atrial fibrillation Active Condition [facility] Bladder cancer Active Condition Oct 272020 Entered By: ERIC MCINTOSH Comment: 11/05/20 - Dr. 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 [facility] Bone density below reference range Active Condition [facility] Cervical radiculopathy Active Condition Aug 13, 2016 Entered By: JUAN MARISCAL Comment: Surg Fusion C3 - - C5; [place] Chronic pancreatitis Active Condition Mar 15, 2019 Entered By: ERIC MCINTOSH Comment: Davon 08/2018 - Dr Ward 2018 Entered By: ERIC MCINTOSH Comment: Scheduled to see Chronic Pancreatitis specialistend of 02/2019 at [facility] in [facility] Colonoscopy Screening Active Condition Apr 04, 2017 Entered By: ERIC MCINTOSH Comment: 2008: +Tub Adenomas - repeat AUG 2016 [place] Coronary artery disease Active Condition Apr 03, 2018 Entered By: ERIC MCINTOSH Comment: AMI 2003; had Angioplasty; no CABG or StentJun 2017 Entered By: ERIC MCINTOSH Comment: Dr Strong/Cardiol nanciy [place] 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 [facility] Food insecurity Active Condition [facility] Hyperparathyroidism Active Condition [facility] Condition [facility] Localized osteoarthrosis Active Condition Aug 13, 2016 Entered By: JUAN MARISCAL Comment: Primarily Knees, Low Back; R Knee WorstDe2015 Entered By: JUAN MARISCAL Comment: has seen Private Ortho; Received Inj's Knees [place] Meniere's disease Active Condition 2016 Entered By: JUAN MARISCAL Comment: Ativan Abates Acute Sx; is Severe (gets Drop Attacks )Oct 14, 2016 Entered By: JUAN MARISCAL Comment: [facility], [facility]; also do PT at [facility] in NOV 12 [place] Mixed hyperlipidemia Active Condition V [facility] [...] Entered By: ERIC MCINTOSH Comment: Dr Reddy/Vascular [place] Primary Care Physician Active Condition May 10, 2019 Entered By: ERIC MCINTOSH Comment: Dr Brantley - [facility] Sciatica Active Condition Apr 04 Entered By: ERIC MCINTOSH Comment: Radicular Sx LLE- Fusion L5-S1 2004 [place] Thyroid nodule Active Condition [facility] [...] ICD-10-CM L60.3 Nail dystrophy Active Diagnosis [facility] Diagnosis: ICD-10-CM E11.51 Type 2 diabetes w diabetic peripheral angiopath w/o gangrene Active Diagnosis [place] Diagnosis: ICD-10-CM M85.9 Disorder of bone density and structure, unspecified Active Diagnosis [facility] Diagnosis: ICD-10-CM R42 Dizziness and giddiness Active Diagnosis [facility] Diagnosis: ICD-10-CM H81.399 Other peripheral vertigo, unspecified ear Active Diagnosis [facility] Diagnosis: ICD-10-CM Z46.0 Encounter for fit/adjst of spectacles and contact lenses Active Diagnosis [facility] Diagnosis: ICD-10-CM H81.09 Meniere's disease, unspecified ear Active Diagnosis [facility] Diagnosis: ICD-10-CM L60.0 Ingrowing nail Active Diagnosis [facility] [place] Diagnosis: ICD-10-CM I10 Essential (primary) hypertension Active Diagnosis [place] Diagnosis: ICD-10-CM Z46.1 Encounter for fitting and adjustment of hearing aid Active Diagnosis [facility] Medications Combined list of outpatient medications [...] DAY NEEDED ORAL ACTIVE ELLIS,AL ICE 2023 [facility] ASPIRIN 81MG TAB,EC TAKE ONE TABLET BY MOUTH EVERY DAY ORAL ACTIVE JODI MARISCAL NIEVES 2015 [place] ATORVASTATI N CA 80MG TAB TAKE ONE-HALF TABLET BY MOUTH AT BEDTIME ORAL ACTIVE ANNETTE MCINTOSH SA 2019 [facility] CALCIUM 500MG (CA CARBONATE-1 .25GM) TAB TAKE TWO TABLETS BY MOUTH ONCE DAILY ORAL ACTIVE ELLIS,AL ICE 2023 [facility] DILTIAZEM (EQV-TIAZAC AB4) 180MG 24HR CAP TAKE 1 CAPSULE BY MOUTH ONCE DAILY ORAL ACTIVE ELLIS,AL ICE 2023 [facility] EMPAGLIFLOZ IN 25MG TAB TAKE ONE TABLET BY MOUTH ONCE DAILY FOR TYPE 2 DIABETES MELLITUS ORAL ACTIVE 07/03/2025 [id number] 5 ELLIS,AL ICE 2023 90 [facility] EMPAGLIFLOZ IN 25MG TAB TAKE ONE TABLET BY MOUTH ONCE DAILY FOR DIABETES ORAL 05/12/2024 [id number] ELLIS,AL ICE 2022 90 [facility] FAMOTIDINE 10MG TAB TAKE ONE TABLET BY MOUTH AT BEDTIME ORAL ACTIVE ANNETTE MCINTOSH SA 2020 [facility] GLUCERNA THERAPEUTIC NUTRITION SHAKE LIQUID VANILLA DRINK 1 BOTTLE BY MOUTH TWICE DAILY FOR NUTRITIO NAL SUPPLEME NTATION ORAL ACTIVE 11/08/2025 [id number] 5 ELLIS,AL ICE 2024 72 [facility] INSULIN,ASP ART,HUMAN (EQV-NOVOLO G) 100 UNIT/ML,FLE XPEN,3ML INJECT DIRECTED SUBCUTAN EOUSLY THREE TIMES A DAY 3 UNITS BREAKFAS T, 1 UNIT PER 6 GM CARB LUNCH, AND 1 UNIT PER 8 GM CARB DINNER 3 UNITS BREAKFAS T, 1 UNIT PER 6 GM CARB LUNCH, AND 1 UNIT PER 8 GM CARB DINNER SUBCUT ANEOUS ACTIVE 10/11/2025 [id number] 5 ELLIS,AL ICE 2024 10 [facility] INSULIN,ASP ART,HUMAN (EQV-NOVOLO [...] D SUBCUT ANEOUS DISCONT INUED (EDIT) 05/04/2025 [id number] 4 ELLIS,AL ICE 2023 10 [facility] INSULIN,ASP ART,HUMAN (EQV-NOVOLO G) 100 UNIT/ML,FLE XPEN,3ML INJECT INSULIN SUBCUTAN EOUSLY THREE TIMES A DAY FOR DIABETES FOLLOWS: 1 UNIT PER 7 GM OF CARBS AT BREAKFAS T, 1 UNIT PER 6 GM OF CARBS AT LUNCH, 1 UNIT PER 8 GM OF CARBS AT DINNER. SUBCUT ANEOUS DISCONT INUED (EDIT) 06/08/2024 [id number] 4 ELLIS,AL ICE 2023 10 [facility] INSULIN,GLA RGINE,HUMAN 100 UNIT/ML INJ,SOLOSTA R,3ML INJECT 19 UNITS SUBCUTAN EOUSLY TWICE DAILY SUBCUT ANEOUS HOLD 10/11/2025 [id number] 5 ELLIS,AL ICE 2024 15 [facility] INSULIN,GLA RGINE-YFGN 100UNIT/ML INJ PEN,3ML INJECT 20 UNITS SUBCUTAN EOUSLY EVERY MORNING SUBCUT ANEOUS DISCONT INUED BY PROVIDE R 05/04/2025 [id number] 4 ELLIS,AL ICE 2023 10 [facility] INSULIN,GLA RGINE-YFGN 100UNIT/ML INJ PEN,3ML INJECT 21 UNITS SUBCUTAN EOUSLY EVERY MORNING SUBCUT ANEOUS DISCONT INUED (EDIT) 01/05/2025 [id number] 4 ELLIS,AL ICE 2023 10 [facility] INSULIN,GLA RGINE-YFGN 100UNIT/ML INJ PEN,3ML INJECT 26 UNITS SUBCUTAN EOUSLY EVERY MORNING FOR DIABETES SUBCUT ANEOUS DISCONT INUED (EDIT) 06/08/2024 [id number] 4 ELLIS,AL ICE 2023 10 [facility] LEVOTHYROXI NE NA 175MCG TAB (SYNTHROID) TAKE ONE TABLET BY MOUTH EVERY MORNING 30 MINUTES BEFORE BREAKFAS T FOR THYROID - TAKE ON AN EMPTY STOMACH WITH A FULL GLASS OF WATER ORAL ACTIVE 07/03/2025 [id number] 5 ELLIS,AL ICE 2024 90 [facility] LEVOTHYROXI NE NA 175MCG TAB (SYNTHROID) TAKE ONE TABLET BY MOUTH EVERY MORNING 30 MINUTES BEFORE BREAKFAS T FOR THYROID - TAKE ON AN EMPTY STOMACH WITH A FULL GLASS OF WATER ORAL DISCONT INUED 03/17/2025 [id number] 4 ELLIS,AL ICE 2023 90 [facility] LEVOTHYROXI NE NA 175MCG TAB (SYNTHROID) TAKE ONE TABLET BY MOUTH EVERY MORNING 30 MINUTES BEFORE BREAKFAS T FOR THYROID FOR THYROID - TAKE ON AN EMPTY STOMACH WITH A FULL GLASS OF WATER ORAL DISCONT INUED 07/26/2024 [id number] 4 ELLIS,AL ICE 2022 90 [facility] LIDOCAINE 5% OINT,TOP APPLY LIBERAL AMOUNT TOPICALL Y TWICE DAILY NERVE PAIN TOPICA L DISCONT INUED BY PROVIDE R 01/05/2025 [id number] 4 ELLIS,AL ICE 2023 70 [facility] LIDOCAINE 5% PATCH APPLY 1 PATCH TOPICALL Y ONCE DAILY FOR NERVE PAIN (LEAVE PATCH ON FOR 12 HOURS, THEN REMOVE PATCH) TOPICA L ACTIVE 06/28/2025 [id number] 4 MARICEL ELIAS 2023 30 [facility] LINACLOTIDE 72MCG CAP TAKE 1 CAPSULE BY MOUTH ONCE DAILY ORAL ACTIVE ELLIS,AL ICE 2021 [facility] LISINOPRIL 5MG TAB TAKE ONE TABLET BY MOUTH ONCE DAILY ORAL ACTIVE ELLIS,AL ICE 2022 [facility] METOPROLOL TARTRATE 25MG TAB TAKE ONE TABLET BY MOUTH TWICE DAILY ORAL ACTIVE ELLIS,AL ICE 2023 [facility] ONDANSETRON HCL 4MG TAB TAKE ONE TABLET BY MOUTH TWICE DAILY NEEDED FOR NAUSEA AND VOMITING ORAL ACTIVE 11/08/2025 [id number] 5 ELLIS,AL ICE 2024 60 [facility] ONDANSETRON HCL 4MG TAB TAKE ONE TABLET BY MOUTH TWICE DAILY NEEDED FOR NAUSEA AND VOMITING ORAL 04/13/2024 [id number] 4 ANNETTE MCINTOSH SA 2022 60 [facility] OTHER CAP/TAB TAKE VIOCASE BY MOUTH THREE TIMES A DAY ORAL ACTIVE ELLIS,AL ICE 2022 [facility] OTHER CAP/TAB TAKE BCG intravae sical VARIABLE ACTIVE ELLIS,AL ICE 2021 [facility] WARFARIN (NON-VA) TAB TAKE DIRECTED BY MOUTH EVERY DAY ORAL ACTIVE JODI MARISCAL 2015 [facility] [place] Allergies, Adverse Reactions, Alerts Combined list of allergies from Department of Defense and Veterans Affairs facilities. It does not include entries that were removed or entered in error. Substance Category Reaction Severity Reaction type Status Date Reported Comments Source METFORMIN Propensity to adverse reactions to drug (finding) Diarrhea active 9 [facility] Immunizations Combined list of available immunizations from the Department of Defense and Veterans Affairs facilities. Immunization Series Date Given Administered By Site Reaction Lot Number CVX Code Drug Nursery Manager Status Comments Source PNEUMOCOCCAL CONJUGATE PCV20, POLYSACCHARID E [id number] CONJUGATE, ADJUVANT, PF 2024 JORGE LUIS QUEEN RIGHT DELTO ID [id number] 216 complet ed [facility] INFLUENZA, UNSPECIFIED FORMULATION 2023 88 complet ed [facility] INFLUENZA, HIGH-DOSE, QUADRIVALENT 2022 ORQUIDEA FOX LEFT DELTO ID [id number] 197 complet ed [facility] [place] RECOMBINANT 1 2017 187 complet ed Per [facility] TDAP [...] 9.27. Ref: http://[email or web address] ngsp.org/[place] Pdata.asp Ordering Provider: ISHAN ELLIS Report Released Date/Time: Jul 02, 2024 11:06 AM Reporting Lab: [address] [address] Performing Lab: [address] [address] [facility] CALCIUM CALCIUM [MASS/VOLUM E] IN SERUM OR PLASMA 9.0 mg/dL 8.5 - 10.2 09/20 Specimen Type: SERUM No comment entered. Ordering Provider: ISHAN ELLIS Report Released Date/Time: Jul 02, 2024 11:06 AM Reporting Lab: [address] [address] Performing Lab: [address] [address] [facility] VITAMIN D (25-OH) 25-HYDROXYV ITAMIN D3 [MASS/VOLUM E] IN SERUM OR PLASMA 30 ng/mL 20 - 50 09/20 Specimen Type: SERUM No comment entered. Ordering Provider: ISHAN ELLIS Report Released Date/Time: Jul 02, 2024 11:06 AM Reporting Lab: [address] [address] Performing Lab: [address] [address] [facility] BASIC METABOLIC PANEL (non-fast ing) UREA NITROGEN [MASS/VOLUM E] IN SERUM OR PLASMA 9 mg/dL 7 - 25 09/20 Specimen Type: SERUM No comment entered. Ordering Provider: ISHAN ELLIS Report Released Date/Time: Jul 02, 2024 11:06 AM Reporting [facility] [address] [facility] [address] Performing Lab: [facility] [address] [facility] [address] [facility] BASIC METABOLIC PANEL (non-fast ing) GLUCOSE [MASS/VOLUM E] IN SERUM OR PLASMA 170 mg/dL 65 - 100 09/20 H Specimen Type: SERUM No comment entered. Ordering Provider: ISHAN ELLIS Report Released Date/Time: Jul 02, 2024 11:06 AM Reporting Lab: [facility] [address] [facility] [address] Performing Lab: [facility]ITALRW[facility]ITALTRN [address] [address] [facility] BASIC METABOLIC PANEL (non-fast ing) SODIUM [MOLES/VOLU ME] IN SERUM OR PLASMA 138 mmol/L 135 - 145 09/20 Specimen Type: SERUM No comment entered. Ordering Provider: ISHAN ELLIS Report Released Date/Time: Jul 02, 2024 11:06 AM Reporting Lab: [facility] [address] [facility] [address] Performing Lab: [facility] TRN [address] [address] [facility] BASIC METABOLIC PANEL (non-fast ing) POTASSIUM [MOLES/VOLU ME] IN SERUM OR PLASMA 3.9 mmol/L 3.5 - 5.0 09/20 Specimen Type: SERUM No comment entered. Ordering Provider: ISHAN ELLIS Report Released Date/Time: Jul 02, 2024 11:06 AM Reporting Lab: [facility] [address] [facility] [address] Performing Lab: [facility] W[facility]N [address] [address] [facility] BASIC METABOLIC PANEL (non-fast ing) CHLORIDE [MOLES/VOLU ME] IN SERUM OR PLASMA 104 mmol/L 100 - 110 09/20 Specimen Type: SERUM No comment entered. Ordering Provider: ISHAN ELLIS Report Released Date/Time: Jul 02, 2024 11:06 AM Reporting Lab: [facility] [address] [address] Performing Lab: [address] [address] [facility] BASIC METABOLIC PANEL (non-fast ing) CARBON DIOXIDE, TOTAL [MOLES/VOLU ME] IN SERUM OR PLASMA 24 meq/L 20 - 30 09/20 Specimen Type: SERUM No comment entered. Ordering Provider: ISHAN ELLIS Report Released Date/Time: Jul 02, 2024 11:06 AM Reporting Lab: [address] [address] Performing Lab: [address] [address] [facility] BASIC METABOLIC PANEL (non-fast ing) CREATININE [MASS/VOLUM E] IN SERUM OR PLASMA 0.85 mg/dL 0.50 - 1.40 09/20 Specimen Type: SERUM No comment entered. Ordering Provider: ISHAN ELLIS Report Released Date/Time: Jul 02, 2024 11:06 AM Reporting Lab: [address] [address] Performing Lab: [address] [address] [facility] BASIC METABOLIC PANEL (non-fast ing) GLOMERULAR FILTRATION RATE/1.73 SQ M.PREDICTED [VOLUME RATE/AREA] IN SERUM, PLASMA OR BLOOD BY CREATININE- BASED FORMULA (CKD-EPI 2020) >90mL/ min 60 09/20 Specimen Type: SERUM No comment entered. Ordering Provider: ISHAN ELLIS Report Released Date/Time: Jul 02, 2024 11:06 AM Reporting Lab: [address] [address] Performing Lab: [facility] [address] [facility] [address] [facility]ENTERUSE [facility] THYROID T4 FREE(FT4) (WROX) THYROXINE (T4) FREE [MASS/VOLUM E] IN SERUM OR PLASMA 1.55 ng/dL 0.6 - 1.6 06/27 Specimen Type: SERUM No comment entered. Ordering Provider: ISHAN ELLIS Report Released Date/Time: Apr 20, 2024 06:27 PM Reporting Lab: [facility] [address] [facility] [address] Performing Lab: [facility] [address] [address] [facility] CALCIUM CALCIUM [MASS/VOLUM E] IN SERUM OR PLASMA 9.4 mg/dL 8.5 - 10.2 06/27 Specimen Type: SERUM No comment entered. Ordering Provider: ISHAN ELLIS Report Released Date/Time: Apr 20, 2024 06:27 PM Reporting Lab: [facility] [address] [facility] [address] Performing Lab: [facility] [address] [facility] [address] [facility] VITAMIN D (25-OH) 25-HYDROXYV ITAMIN D3 [MASS/VOLUM E] IN SERUM OR PLASMA 37 ng/mL 20 - 50 06/27 Specimen Type: SERUM No comment entered. Ordering Provider: ISHAN ELLIS Report Released Date/Time: Apr 20, 2024 06:27 PM Reporting Lab: [facility] [address] [facility] [address] Performing Lab: [facility] [address] [facility] [address] [facility] PTH INTACT PARATHYRIN. INTACT [MASS/VOLUM E] IN SERUM OR PLASMA 62.8 pg/mL 10 - 65 06/27 Specimen Type: SERUM No comment entered. Ordering Provider: ISHAN ELLIS Report Released Date/Time: Apr 20, 2024 06:27 PM Reporting Lab: [address] [address] Performing Lab: [address] [address] [facility] HEMOGLOBI N A1C PANEL HEMOGLOBIN A1C/HEMOGLO [...] Jun 14, 2024 02:11 PM Reporting Lab: [address] [address] Performing Lab: [address] [address] [facility] LIPID PANEL, NON FASTING CHOLESTEROL [MASS/VOLUM E] IN SERUM OR PLASMA 95 mg/dL 06/25 Specimen Type: SERUM No comment entered. Ordering Provider: LILY ELIAS Report Released Date/Time: Jun 14, 2024 02:11 PM Reporting Lab: [address] [address] Performing Lab: [address] [address] [facility] LIPID PANEL, NON FASTING TRIGLYCERID E [MASS/VOLUM E] IN SERUM OR PLASMA 91 mg/dL 0 - 150 06/25 Specimen Type: SERUM No comment entered. Ordering Provider: LILY ELIAS Report Released Date/Time: Jun 14, 2024 02:11 PM Reporting Lab: [address] [place] [address] Performing Lab: [facility] [place] [facility] [address] [facility] [address] [facility]ITALRWALKER COUNTY HOSPITALTRN [facility]ITALCHUSE [facility] LIPID PANEL, NON FASTING CHOLESTEROL IN LDL [MASS/VOLUM E] IN SERUM OR PLASMA BY CALCULATION 30 mg/dL 0 - 129 06/25 Specimen Type: SERUM No comment entered. Ordering Provider: LILY ELIAS Report Released Date/Time: Jun 14, 2024 02:11 PM Reporting Lab: [facility] [place] [facility] [address] [facility] [address] Performing Lab: [facility] TRN [facility] [address] [facility] [address] [facility]ENTERUSE [facility] LIPID PANEL, NON FASTING CHOLESTEROL .TOTAL/CHOL ESTEROL IN HDL [MASS RATIO] IN SERUM OR PLASMA 2.0 06/25 Specimen Type: SERUM No comment entered. Ordering Provider: LILY ELIAS Report Released Date/Time: Jun 14, 2024 02:11 PM Reporting Lab: [facility]ITAL[facility]ITALTR[facility] [place] [facility] [address] [facility] [address] Performing Lab: [facility] TRN [facility]ENTER[facility] [address] [facility] [address] [facility]ENTERUSE [facility] LIPID PANEL, NON FASTING CHOLESTEROL IN HDL [MASS/VOLUM E] IN SERUM OR PLASMA 47 mg/dL 40 - 60 06/25 Specimen Type: SERUM No comment entered. Ordering Provider: LILY ELIAS Report Released Date/Time: Jun 14, 2024 02:11 PM Reporting Lab: [facility]ITALTR[facility] [place] [facility] [address] [facility] [address] Performing Lab: [facility]N [facility] [address] [facility] [address] [facility]ENTERUSE [facility] Vital Signs Combined list of inpatient and outpatient Vital Signs from Department of Defense and Veterans Affairs, ranging from 12 months to all on record, depending upon the facility. Vital Sign Value Date Comments Source SYSTOLIC BLOOD PRESSURE 135 10/10/19 25 08:30:00 [facility] DIASTOLIC BLOOD PRESSURE 87 025 08:30:00 [facility] PULSE OXIMETRY 99 10/10/2024 08:30:00 [facility] WEIGHT 182.8 10/10/2024 08:30:00 [facility] BMI 28 kg/m2 10/10/2024 08:30:00 [facility] [...] [facility] DIASTOLIC BLOOD PRESSURE 86 10/31/2 024 07:42:00 [facility] SYSTOLIC BLOOD PRESSURE 150 06/27/20 10:53:01 [facility] DIASTOLIC BLOOD PRESSURE 93 10:53:01 [facility] PULSE [...] [place] [facility] SYSTOLIC BLOOD PRESSURE 120 04/02/20 08:57:26 [facility] DIASTOLIC BLOOD PRESSURE 74 08:57:26 [facility] PULSE [...] Source [facility] OFF/OP EST DECEMBER X REQ PHY/QHP [id number] Diagnos is: ICD-10- CM E08.9 Diabete s due to underly ing conditi on w/o complic ations NAYA FOX 06/08 [facility] OFF[facility] O/P EST HI 40-54 MIN [id number] Diagnos is: ICD-10- CM E08.9 Diabete s due to underly ing conditi on w/o complic ations KARIS ELLIS 06/08 [facility] [place] ADMIN [id number] NAYA FOX 06/08 [facility] CONT GLUC MNTR ANALYSIS I&R [id number] Diagnos is: ICD-10- CM E08.9 Diabete s due to underly ing conditi on w/o complic ations KARIS ELLIS CE 06/08 [facility] Outpatient Encounter [id number] 06/13 [facility] HEARING AID REPAIR/MOD IFYING [id number] Diagnos is: ICD-10- CM Z46.1 Encount er for fitting and adjustm ent of hearing aid Vasquez MENEZES 06/15 [facility] En[facility] [id number] KARIS ELLIS 07/07 [facility] Out[facility] Encounter [id number] KARIS ELLIS 07/26 [facility] OFFICE O/P EST LOW 20-29 MIN [id number] Diagnos is: ICD-10- CM I10 Essenti al (primar y) hyperte nsSANDRA Golden 08/01 [place] [facility] PT EVAL HIGH COMPLEX 45 MIN [id number] Diagnos is: ICD-10- CM R42 Dizzine ss and giddine ss YUDITH GARCIA M 09/15 [facility] OFFICE O/P EST LOW 20 MIN [id number] Diagnos is: ICD-10- CM L60.0 Ingrowi GERMANIA Vann F 09/22 [place] [facility] Outpatient Encounter [id number] KARIS ELLIS 09/24 [facility] THERAPEUTI C EXERCISES [id number] Diagnos is: ICD-10- CM R42 Dizzine ss and giddine ss YUDITH GARCIA M 09/26 [facility] OFFICE O/P EST MOD 30 MIN [id number] Diagnos is: ICD-10- CM E08.9 Diabete s due to underly ing conditi on w/o complic ations KARIS ELLIS 09/26 [facility] OFF/OP EST MAY X REQ PHY/QHP [id number] Diagnos is: ICD-10- CM E08.9 Diabete s due to underly ing conditi on w/o complic ations IGNACIOMESHAWalyl COBOS A 09/27 [facility] Outpatient Encounter [id number] 09/29 [facility] Out[facility] Encounter [id number] Jourdan JIMENEZ M 10/03 [facility] THERAPEUTI C EXERCISES [id number] Diagnos is: ICD-10- CM H81.09 Meniere 's disease , unspeci fied ear GEOVANNIENIO,YUDITH LLY M 10/10 [facility] Outpatient Encounter [id number] Diagnos is: ICD-10- CM 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, NEC, bilater al MEETA,IA MORENITA 10/13 [facility] EXTENDED VISUAL FIELD XM [id number] Diagnos is: ICD-10- CM 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, NEC, bilater al MEETA,IA MORENITA 10/13 [facility] COMPRE OPH EXAM EST PT 1/> [id number] Diagnos is: ICD-10- CM E11.9 Type 2 diabete s mellitu s without complic ations DHRUV TIM 10/13 [facility] THERAPEUTI C EXERCISES [id number] Diagnos is: ICD-10- CM H81.399 Other periphe ral vertigo , unspeci fied ear CHALLET,KE LLY M 10/13 [facility] FIT SPECTACLES MULTIFOCAL [id number] Diagnos is: ICD-10- CM Z46.0 Encount er for fit/adj st of spectac les and contact lenses DHRUV TIM 10/19 [facility] HOT OR COLD PACKS THERAPY [id number] Diagnos is: ICD-10- CM H81.399 Other periphe ral vertigo , unspeci fied ear GEOVANNIET,YUDITH FARZANAY M 10/24 [facility] Outpatient Encounter [id number] SANDRA MCINTOSH 10/26 [facility] NEUROMUSCU LAR REEDUCATIO N [id number] Diagnos is: ICD-10- CM R42 Dizzine ss and giddine ss YUDITH GARCIA LLY M [facility] NEUROMUSCU LAR REEDUCATIO N [id number] Diagnos is: ICD-10- CM R42 Dizzine ss and giddine ss YUDITH GARCIA LLY M 10/31 [facility] Outpatient Encounter [id number] KARIS ELLIS 12/07 [facility] Outpatient Encounter [id number] 12/12 [facility] Outpatient Encounter [id number] 12/12 [facility] OFFICE O/P EST MOD 30 MIN [id number] Diagnos is: ICD-10- CM E08.9 Diabete s due to underly ing conditi on w/o complic ations KARIS ELLIS 01/04 [facility] CONT GLUC MNTR ANALYSIS I&R [id number] Diagnos is: ICD-10- CM E08.9 Diabete s due to underly ing conditi on w/o complic ations KARIS ELLIS 01/04 [facility] CONT GLUC MNTR [place] PROV EQP [id number] Diagnos is: ICD-10- CM E08.9 Diabete s due to underly ing conditi on w/o complic ations NAYA FOX 01/04 [facility] LD QNHP OL DIG ASSMT&MGMT 5-10 [id number] [id number] Diagnos is: ICD-10- CM E08.9 Diabete s due to underly ing conditi on w/o complic ations JAIRO WRIGHT 01/04 [place] [facility] Outpatient Encounter [id number] KARIS ELLIS 01/05 [facility] Outpatient Encounter [id number] KARIS ELLIS CE 01/05 [facility] Outpatient Encounter [id number] KARIS ELLIS 01/05 [facility] Outpatient Encounter [id number] KARIS ELLIS CE 01/05 [facility] Outpatient Encounter [id number] 01/23 [facility] DIAB MANAGE TRN PER INDIV [id number] Diagnos is: ICD-10- CM E08.9 Diabete s due to underly ing conditi on w/o complic ations NAYA FOX M 01/24 [facility] Out[facility] Encounter [id number] KARIS ELLIS CE 02/05 [facility] Out[facility] Encounter [id number] 03/14 [facility] Out[facility] Encounter [id number] 03/16 [facility] Out[facility] Encounter [id number] KARIS ELLIS CE 03/31 [facility] OFFICE O/P EST MOD 30 MIN [id number] Diagnos is: ICD-10- CM E08.9 Diabete s due to underly ing conditi on w/o complic ations KARIS ELLIS CE 04/02 [facility] OFF/OP EST DECEMBER X REQ PHY/QHP [id number] Diagnos is: ICD-10- CM E08.9 Diabete s due to underly ing conditi on w/o complic ations ROBBIE MEJÍA 04/02 [facility] Outpatient Encounter [id number] 1.04/24 [facility] OFFICE O/P EST LOW 20 MIN [id number] Diagnos is: ICD-10- CM L60.3 Nail dystrop hy GERMANIA LANDAVERDE ES F 05/03 [place] [facility] Outpatient Encounter [id number] 1.05/03 [facility] DIAB MANAGE TRN PER INDIV [id number] Diagnos is: ICD-10- CM E08.9 Diabete s due to underly ing conditi on w/o complic ations JADYN GUERRA P 05/03 [place] [facility] Outpatient Encounter [id number] [facility] Out[facility] Encounter [id number] 05/08 [facility] Outpatient Encounter [id number] [facility] Out[facility] Encounter [id number] 05/21 [facility] Out[facility] Encounter [id number] 05/28 [facility] Outpatient Encounter [id number] 06/27 [facility] OFFICE O/P EST MOD 30 MIN [id number] 1. Diagnos is: ICD-10- CM M85.9 Disorde r of bone density and structu re, unspeci Inocente Mckeon 06/27 [facility] Outpatient Encounter [id number] 06/29 [facility] OFFICE O/P EST MOD 30 MIN [id number] Diagnos is: ICD-10- CM E08.9 Diabete s due to underly ing conditi on w/o complic ations KARIS ELLIS 07/02 [facility] Outpatient Encounter [id number] 1. Diagnos is: ICD-10- CM E08.9 Diabete s due to underly ing conditi on w/o complic ations VIETS,NAYA E M 07/02 [facility] CONT GLUC MNTR ANALYSIS I&R [id number] 1. 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 34 Diagnos is: ICD-10- CM E08.9 Diabete s due to underly ing conditi on w/o complic ations MARIJADYN AYERS P 09/06 [facility]P EST LOW 20 MIN [id number] Diagnos is: ICD-10- CM L60.3 Nail dystrop hy ROSS,CHARL ES F 09/20 [facility] [place] [facility] Outpatient Encounter [id number] KARIS ELLIS 09/21 [facility] Outpatient Encounter [id number] HAYLEE QUEEN 09/25 [facility] OFF/OP EST MAY X REQ PHY/QHP [id number] Diagnos is: ICD-10- CM 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 HAYLEE QUEEN 09/26 [facility] OFF/OP EST MAY X REQ PHY/QHP [id number] [id number] Diagnos is: ICD-10- CM E08.9 Diabete s due to underly ing conditi on w/o complic ations ROBBIE MEJÍA N 10/10 [facility] OFFICE O/P EST MOD 30 MIN [id number] Diagnos is: ICD-10- CM E08.9 Diabete s due to underly ing conditi on w/o complic ations KARIS ELLIS 10/10 [facility] CPTRZD [place] [id number] Diagnos is: ICD-10- CM 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, NEC, bilater al DHRUV TIM 10/23 [facility] OFFICE O/P EST MOD 30 MIN [id number] Diagnos is: ICD-10- CM E11.9 Type 2 diabete s mellitu s without complic ations DHRUV TIM 10/23 [facility] SYNCH AUDIO-ONLY EST MOD 30 [id number] Diagnos is: ICD-10- CM E04.1 Nontoxi c single thyroid nodule KARIS ELLIS 10/27 [facility] Outpatient Encounter [id number] NAYA FOX 11/07 [facility] Outpatient Encounter [id number] 11/09 [facility] Social History Combined list of available smoking, tobacco, and other social history from Department of Defense and Veterans Affairs facilities. Social History Type Response Date Comment Source Tobacco smoking status NHIS OR-TOBACCO USE EVERY DAY CIGARETTES 06/27/2024 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 Additional future care activities may be listed in the Assessment and Plan section. Date/Time Care Activity Care Activity Detail Facili ty 12/24/2024 AMBULATORY - MEDICINE AMBULATORY - MEDICI NE [facility]
--- OUTSIDE RECORDS SUMMARY | 2024-12-03 17:16 | XMS_ITS | Encounter Summary ---
Author Name [facility] [place] Address [address] [place] [address] Care Team Providers Care Pipe Coremaker Name Role Phone MARICEL ELIAS Primary Care [...] SUPPLEMEN YAMILKA MEDEX 2 Apr 29, 2020 [id number] ALICE RUSSO PATIENT [place] MED[place] SUPPLEMEN YAMILKA MEDEX 2 Apr 29, 2020 [id number] ALICE RUSSO PATIENT BCBS [facility] CE ORGANIZ [facility] SHARE ACTIV E Feb 27, 2012 [id number] [phone] ALICE RUSSO PATIENT EXPRESS SCRIPTS ([id number]) PRESCRIPT ION L4TA* Feb 27, 2012 L4TA [id number] ALICE RUSSO PATIENT EXPRESS SCRIPTS ([id number]) PRESCRIPT ION Feb 27, 2012 L4TA [id number] ALICE RUSSO PATIENT MEDICARE (WNR) MEDICARE (M) PART A Apr 29, 2020 PART A [id number] ALICE RUSSO PATIENT MEDICARE (WNR) MEDICARE (M) PART B Apr 29, 2020 PART B [id number] ALICE RUSSO PATIENT MEDICARE (WNR) MEDICARE (M) PART A Apr 29, 2020 PART A [id number] ALICE RUSSO PATIENT MEDICARE (WNR) MEDICARE (M) PART B Apr 29, 2020 PART B [id number] [phone] ALICE RUSSO PATIENT Selected Encounter This section includes the information on record at [place] for the Encounter. Date/Time Encounter Type Encounter Description Reason Provider Source Oct 10, 2024 08:30 AM OFFICE O/P EST MOD 30 MIN ENDOCRINOLOGY ICD-10-CM E08.9 Diabetes due to underlying condition w/o complications COMPA ELLIS Mainor Encounter Template Text not used by [place] Assessments - Encounter Diagnoses This section includes the primary and secondary diagnoses documented for the Encounter. 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 [facility] [place] [facility] Oct 24, 2024 08:22 AM SECONDARY Disorder of bone density and structure, unspecified [facility] [facility] Oct 24, 2024 08:22 AM SECONDARY Essential (primary) hypertension [facility] [place] [facility] Oct 24, 2024 08:22 AM SECONDARY Hyperlipidemia, unspecified [facility] [place] [facility] Oct 24, 2024 08:22 AM SECONDARY Hypothyroidism, unspecified [facility] [place] [facility] Oct 24, 2024 08:22 AM SECONDARY Nontoxic single thyroid nodule [facility] [place] [facility] Plan of Treatment: Future Appointments (+ 6 [...] 20 appointments. The data comes from all [facility]. Appointment Date/Time Appointment Type Appointme nt Facility Name Oct 23, 2024 03:00 PM AMBULATORY - NONE [place] [facility] [place] [facility] Oct 23, 2024 03:15 PM AMBULATORY - MEDICINE [place] [facility] [place] [facility] Oct 23, 2024 03:30 PM AMBULATORY - MEDICINE [place] [facility] [place] [facility] Nov 22, 2024 08:00 AM AMBULATORY - MEDICINE [place] [facility] [place] [facility] Nov 30, 2024 09:30 AM AMBULATORY NONE [place] [facility] [place] [facility] Dec 24, 2024 08:00 AM AMBULATORY - MEDICINE [place] [place] [facility] Dec 24, 2024 09:30 AM AMBULATORY - MEDICINE [place] [place] [facility] January 07, 2025 09:00 AM AMBULATORY - MEDICINE [place] [facility] [place] [facility] January 24, 2025 08:30 AM AMBULATORY - MEDICINE [facility] Active, Pending, and Scheduled Orders This section includes a listing of several types of active, pending, and scheduled orders, including clinic medications orders, diagnostic test orders, procedure orders and consult orders; where the start date of the order is 45 days before the date of the Encounter or 45 days after the date of theEncounter. The data comes from all [facility]. Test Date/Time Test Type Test Details Facility Name Oct 27, 2024 12:00 AM Laboratory - Chemi stry Order PT & INR (PROTIME) BLOOD (BLUE-PLASMA) [facility] Oct 27, 2024 12:00 AM Laboratory - Chemi stry Order PTT BLOOD (BLUE-PLASMA) [facility] WSN [facility] Oct 27, 2024 12:00 AM Laboratory - Chemi stry Order CBC AND DIFF (AUTO) BLOOD (LAV-BLOOD) [facility] Oct 27, 2024 09:25 AM Consult Order [facility]-INTERVENTIONAL RADIOLOGY Cons Administrative Supervisor's Choice [facility] Lab Results: +/- 30 days of the encounter This section includes the Chemistry and Hematology Lab Results on record with [place] for the patient. Radiology Reports and Pathology Reports are provided separately, in subsequent sections. Lab Results This section contains the Chemistry/Hematology Results that were resulted 30 days before or 30 daysafter the date of the Encounter. Date/Time Source Result Type Result - Unit Interpretation Reference Range Comment Sep 20, 2024 08:58 AM [facility] HEMOGLOBIN A1C PANEL Specimen Type: BLOOD [...] Jul 02, 2024 11:06 AM Reporting Lab: [facility] [address] [facility] [address] Performing Lab: [facility] [address] [facility] [address] HEMOGLOBIN A1C 6.5 H 4.0-5.6 Sep 20, 2024 08:58 AM [facility] CALCIUM Specimen Type: SERUM No comment entered. Ordering Provider: COMPA ELLIS Report Released Date/Time: Jul 02, 2024 11:06 AM Reporting Lab: [facility] [place] [facility] [address] [facility] [address] Performing Lab: [facility] [address] [facility] [address] CALCIUM 9.0 mg/dL 8.5-10.2 Sep 20, 2024 08:58 AM [facility] VITAMIN D (25-OH) Specimen Type: SERUM No comment entered. Ordering Provider: COMPA ELLIS Report Released Date/Time: Jul 02, 2024 11:06 AM Reporting Lab: [facility] [address] [facility] [address] Performing Lab: [facility] [address] [facility] [address] VITAMIN D (25-OH) 30 ng/mL 20-50 Sep 20, 2024 08:58 AM [facility] BASIC METABOLIC PANEL (non-fasting) Specimen Type: SERUM No comment entered. Ordering Provider: COMPA ELLIS Report Released Date/Time: Jul 02, 2024 11:06 AM Reporting Lab: [facility] [address] [facility] [address] Performing Lab: [address] [address] UREA NITROGEN 9 mg/dL 7-25 GLUCOSE 170 [...] 57 135/87 18 99 5 182.8 28 [facility] Social History: Smoking Status (Most current) and Tobacco Use (All prior to encounter date) This section includes the most current, and the historical, smoking and tobacco- related health factors from the [place] facility where the Encounter took place. Current Smoking Status This section includes the most current smoking, or tobacco-related health factor, from the [place] facility where the Encounter took place. Date/Time Current Smoking Status Comment Facil ity Jun 27, 2024 11:00 AM [place]-TOBACCO USE MICHELLE RY DAY CIGARETTES [facility] Tobacco Use History This section includes a history of the smoking, or tobacco-related health factors, that were collected on or before the date of the Encounter. The data comes from the [place] facility where the Encounter took place. 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 [facility] [place] [facility] Jun 27, 2024 11:00 AM VA-TOBACCO USE MICHELLE RY DAY CIGARETTES [place] [facility] [place] [facility] Jun 27, 2024 11:00 AM VA-TOBACCO USE MED NO [facility] [facility] Sep 09, 2020 08:36 AM VA-TOBACCO DOESNT USE WI 30 MIN WAKEUP [place] [facility] [place] [facility] Sep 09, 2020 08:36 AM VA-TOBACCO USE 30 YEARS OR MORE [facility] [place] [facility] Sep 09, 2020 08:36 AM VA-TOBACCO USE ADVICE [place] [facility] [place] [facility] Sep 09, 2020 08:36 AM VA-TOBACCO USE 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 The data comes from all [place] treatment facilities. Date/Time Radiology Report Provider Source Oct 23, 2024 02:43 PM ULTRASOUND NECK (THYROID,HEAD,SOFT TISSUE): ALICE RUSSO [id number] -1955 M Exm Date: OCT 23, 2024@14:43 Req Phys: COMPA ELLIS Loc: [facility] ENDOCRINE 1 (Req'g Loc) Img Loc: ULTRASOUND Service: Unknown [facility] [address] (Case [id number] COMPLETE) ULTRASOUND NECK (THYROID,HEAD,SOF(US Detailed) CPT:37316 Reason for Study: multinodular goiter Clinical History: Report Status: Verified Date Reported: OCT 24, 2024 Date Verified: OCT 24, 2024 Soda Drier Feeder E-Sig: Report: ULTRASOUND NECK (THYROID,HEAD,SOFT TISSUE) HISTORY: multinodular goiter COMPARISON: CT neck 10/25/2022 TECHNIQUE: Sonographic imaging of the thyroid gland was performed at the local [place] facility. 22 images were received by the [place] National Teleradiology Program (NTP) for interpretation. FINDINGS: [...] is recommended. READING PHYSICIAN: Christiano Camacho M.D. -[id number] 10/24/2024 12:43 [facility] National Teleradiology Program [phone] (For Medical Practitioner Use Only) Attention Patients / Veterans: If you have questions or concerns about these test results, please contact your ordering provider or primary care team. Primary Diagnostic Code: NO ALERT REQUIRED Primary Interpreting Staff: RADIOLOGY,OUTSIDE SERVICE, Staff Physician / RADIOLOGY,OUTSIDE SERVICE [facility] Encounter Notes: All associated encounter notes This section contains the clinical notes associated to the Encounter. 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 He had nerve damage, with residual difficulty walking. Has follow up today with vascular. No changes in the grayson of the thyroid. No dysphagia, a little hoarseness. Ongoing care for bladder CA. From last visit He has us carotid at [facility], and states thyroid Nodule seen. He [...] disease 17. Abdominal aortic aneurysm (SNOMED CT [id number]) 18. Localized osteoarthrosis 19. Sciatica 20. Primary [...] Remote Allergy/ADR Data available for this patient [facility] METFORMIN Med Recon NoGlossary (Tool #1) [...] the patient into personal health records (i.e. [facility]) are NOT included in this list. Non-VA medications documented outside this [place], remote inpatient orders (regardless of status) and [...] DAILY FOR TYPE 2 DIABETES MELLITUS Rx# [id number] Last Released: 07/04/24 Qty/Days Supply: Rx Expiration [...] CARB DINNER PLEASE HOLD UNTIL REQUESTED Rx# [id number] Last Released: 08/02/24 Qty/Days Supply: Rx Expiration Date: 05/04/25 Refills Remainin Indication: FOR DIABETES OUTPT INSULIN,GLARGINE-YFGN 100UNIT/ML PEN 3ML (Status = Active) INJECT 20 UNITS SUBCUTANEOUSLY EVERY MORNING Rx# [id number] Last Released: 08/06/24 Qty/Days Supply: Rx Expiration Date: 05/04/25 Refills Remainin Indication: FOR DIABETES OUTPT LEVOTHYROXINE NA 175MCG TAB (Status = Active) TAKE ONE TABLET BY MOUTH EVERY MORNING 30 MINUTES BEFORE BREAKFAST FOR THYROID - TAKE ON AN EMPTY STOMACH WITH A FULL GLASS OF WATER Rx# [id number] Last Released: 09/01/24 Qty/Days Supply: Rx Expiration Date: 07/03/25 Refills Remainin Indication: FOR THYROID OUTPT LIDOCAINE 5% PATCH (Status = Active) APPLY 1 PATCH TOPICALLY ONCE DAILY FOR NERVE PAIN (LEAVE PATCH ON FOR 12 HOURS, THEN REMOVE PATCH) Rx# [id number] Last Released: 06/29/24 Qty/Days Supply: Rx Expiration [...] THREE TIMES DAILY NEEDED SENSOR FAILURE Rx# [id number] Last Released: 05/10/24 Qty/Days Supply: 100/30 Rx Expiration Date: 05/04/25 Refills Remainin Indication: SENSOR FAILURE OUTPT DEPEND UNDERWEAR,MAXIMUM,MEN SM/MED (Status = ) USE 1 BRIEF DIRECTED ONCE DAILY NEEDED Rx# [id number] Last Released: 04/10/24 Qty/Days Supply: Rx Expiration Date: 08/01/24 Refills Remainin Indication: INCONTINENCE OUTPT GLUCOSE SENSOR FREESTYLE REYES 3 (Status = Active) USE 1 SENSOR DIRECTED EVERY 14 DAYS Rx# [id number] Last Released: 10/02/24 Qty/Days Supply: 10/26 Rx Expiration Date: 07/03/25 Refills Remainin OUTPT NEEDLE,PEN 32G,4MM (Status = ) USE 1 NEEDLE SUBCUTANEOUSLY FOUR TIMES A DAY FOR USE WITH PEN DEVICE Rx# [id number] Last Released: 05/03/24 Qty/Days Supply: / Rx Expiration Date: 07/26/24 Refills Remainin OUTPT TRANSPARENT DRESSING 2 3/8IN X 2 3/4IN (Status = Active) APPLY 1 DRESSING TOPICALLY EVERY 14 DAYS Rx# [id number] Last Released: 07/05/24 Qty/Days Supply: Rx Expiration Date: 07/04/25 Refills RemaininMauro khan/ COMPA ELLIS MD STAFF PHYSICIAN Signed: 10/10/2024 12:28 COMPA ELLIS [facility] [place] [facility]
--- OUTSIDE RECORDS SUMMARY | 2024-12-03 17:16 | XMS_ITS | Encounter Summary ---
Author Name [place] Address [address] [place] [place] [address] Care Team Providers Care Tomography Technologist Name Role Phone MARICEL ELIAS Primary Care [...] SUPPLEMEN YAMILKA MEDEX 2 Apr 29, 2020 [id number] ALICE EARL PATIENT BCBS [place] MEDICARE SUPPLEMEN YAMILKA MEDEX 2 Apr 29, 2020 [id number] ALICE EARL PATIENT BCBS [facility] CE ORGANIZ [facility] SHARE ACTIV E Feb 27, 2012 [id number] ALICE EARL PATIENT EXPRESS SCRIPTS ([id number]) PRESCRIPT ION L4TA* Feb 27, 2012 L4TA [id number] ALICE EARL PATIENT [employer] S[employer]IP[employer] ([id number]) PRESCRIPT ION Feb 27, 2012 L4TA [id number] ALICE EARL PATIENT MEDICARE (WNR) MEDICARE (M) PART A Apr 29, 2020 PART A [id number] [phone] [id number] ALICE EARL PATIENT MEDICARE (WNR) MEDICARE (M) PART B Apr 29, 2020 PART B [id number] [phone] [id number] ALICE EARL PATIENT MEDICARE (WNR) MEDICARE (M) PART A Apr 29, 2020 PART A [id number] ALICE EARL PATIENT MEDICARE (WNR) MEDICARE (M) PART B Apr 29, 2020 PART B [id number] [phone] ALICE EARL PATIENT Selected Encounter This [...] to underlying condition w/o complications COMPA ELLIS [place] [facility] [facility] Plan of Treatment: Future Appointments (+ 6 months) and Future Tests (+/- 45 days) The Plan of Treatment section includes future care activities for the patient from all [place] treatmentfacilities. This section includes future appointments and future orders which are active, pending or scheduled. Future Appointments This section includes appointments that were scheduled to occur 6 months from the date of the Encounter, up to a maximum of 20 appointments. The data comes from all [place] treatment facilities. Appointment Date/Time Appointment Type Appointme nt Facility Name January 25, 2024 11:00 AM AMBULATORY - MEDICINE [place] [facility] [place] [facility] Feb 02, 2024 12:30 PM AMBULATORY - NONE [facility] [place] [facility] Apr 02, 2024 09:00 AM AMBULATORY - MEDICINE [facility] [place] [facility] May 03, 2024 08:30 AM [facility] May 03, 2024 03:00 PM AMBULATORY - MEDICINE [place] Jun 27, 2024 11:00 AM AMBULATORY - MEDICINE [place] [facility] [place] [facility] Jul 02, 2024 10:30 AM AMBULATORY - MEDICINE [place] [facility] [place] [facility] Jul 04, 2024 09:00 AM [facility] - [facility] Lab Results: +/- 30 days of the encounter This section includes the Chemistry and Hematology Lab Results on record with [place] for the patient. Radiology Reports and Pathology Reports are provided separately, in subsequent sections. Lab Results This section contains the Chemistry/Hematology Results that were resulted 30 days before or 30 daysafter the date of the Encounter. Date/Time Source Result Type Result - Unit Interpretation Reference Range Comment January 04, 2024 01:53 PM [facility] WSN [facility] THYROID T4 FREE(FT4) (WROX) Specimen Type: SERUM No comment entered. Ordering Provider: COMPA ELLIS Report Released Date/Time: January 03, 2024 08:02 AM Reporting Lab: [facility] [address] [facility] [address] Performing Lab: [facility] [address] [facility] [address] THYROID T4 FREE(FT4) (WROX) 1.25 ng/dL 0.6-1.6 January 04, 2024 01:53 PM [facility] HEMOGLOBIN A1C PANEL Specimen Type: BLOOD [...] 03, 2024 08:02 AM Reporting Lab: [facility] [address] [facility] [address] Performing Lab: [address] [address] HEMOGLOBIN A1C 7.4 H 4.0-5.6 January 04, 2024 01:53 PM [facility] CALCIUM Specimen Type: SERUM No comment entered. Ordering Provider: COMPA ELLIS Report Released Date/Time: January 03, 2024 08:02 AM Reporting Lab: [facility] [address] [facility] [address] Performing Lab: [facility] [address] [facility] [address] CALCIUM 8.5 mg/dL 8.5-10.2 January 04, 2024 01:53 PM [facility] MICROALBUMIN CREATININE RATIO PANEL Specimen Type: URINE No comment entered. Ordering Provider: COMPA ELLIS Report Released Date/Time: January 03, 2024 08:02 AM Reporting Lab: [facility] [address] [facility] [address] Performing Lab: [facility] [address] [address] MICROALBUMIN/C REATININE RATIO 15.4 mg/g 0-29.9 MICROALBUMIN,Q UANTITATIVE 0.8 mg/dL RR UNAVAIL CREATININE URINE 51.94 mg/dL January 04, 2024 01:53 PM [facility] PTH INTACT Specimen Type: SERUM No comment entered. Ordering Provider: COMPA ELLIS Report Released Date/Time: January 03, 2024 08:02 AM Reporting Lab: [facility] [address] [facility] [address] Performing Lab: [facility] [address] [facility] [address] PTH INTACT 72.1 pg/mL H 10-65 January 04, 2024 01:53 PM [facility] VITAMIN D (25-OH) Specimen Type: SERUM No comment entered. Ordering Provider: COMPA ELLIS Report Released Date/Time: January 03, 2024 08:02 AM Reporting Lab: [facility] [address] [facility] [address] Performing Lab: [facility] [address] [address] VITAMIN D (25-OH) 44 ng/mL 20-50 January 04, 2024 01:53 PM [facility] TSH Specimen Type: SERUM No comment entered. Ordering Provider: COMPA ELLIS Report Released Date/Time: January 03, 2024 08:02 AM Reporting Lab: [address] [address] Performing Lab: [address] [address] TSH 2.11 u[IU]/mL 0.35-5.00 January 04, 2024 01:53 PM [facility] LIPID PANEL FASTING Specimen Type: SERUM No comment entered. Ordering Provider: COMPA ELLIS Report Released Date/Time: January 03, 2024 08:02 AM Reporting Lab: [address] [address] Performing Lab: [address] [address] CHOLESTEROL 106 mg/dL TRIGLYCERIDE 119 mg/dL 0-150 LDL calculated 37 mg/dL 0-129 CHOL/HDL 2.4 HDL CHOLESTEROL 45 mg/dL 40-60 January 04, 2024 01:53 PM [facility] BASIC METABOLIC PANEL (fasting) Specimen Type: SERUM No comment entered. Ordering Provider: COMPA ELLIS Report Released Date/Time: January 03, 2024 08:02 AM Reporting Lab: [address] [address] Performing Lab: [address] [address] UREA NITROGEN 18 mg/dL 7-25 GLUCOSE 197 [...] 132/74 16 95 0 68 190 29 [place] [facility] [place] [place] [facility] Social History: Smoking Status (Most current) and [...] 2020 08:36 AM VA-TOBACCO USER EVERY DAY [facility] Tobacco Use History This section includes a history of the smoking, or tobacco-related health factors, that were collected on or before the date of the Encounter. The data comes from the [place] facility where the Encounter took place. Date/Time Smoking Status/Tobacco Use Comment F acility Sep 09, 2020 08:36 AM VA-TOBACCO USE 30 YEARS OR MORE [facility] [place] [facility] Sep 09, 2020 08:36 AM VA-TOBACCO USE ADVICE [facility] [facility] Sep 09, 2020 08:36 AM VA-TOBACCO USE CAR SCRUBBER NO [facility] [facility] Sep 09, 2020 08:36 AM VA-TOBACCO USE MED NO [place] [facility] [facility] Sep 09, 2020 08:36 AM VA-TOBACCO USER EVERY DAY [facility] Radiology Reports: +/- 30 days of [...] PM RENAL AND BLADDER ULTRASOUND: ALICE EARL [id number] -1955 M Exm Date: FEB 02, 2024@12:42 Req Phys: COMPA ELLIS Loc: [facility]/ENDOCRINE (Req'g Loc) Img Loc: ULTRASOUND Service: Unknown [facility] , (Case 426 COMPLETE) ULTRASOUND KIDNEYS (US Detailed) CPT:82692 Reason for Study: hyperparathyroidism (Case 427 COMPLETE) ULTRASOUND URINARY BLADDER (US Detailed) CPT:11388 Clinical History: Report Status: Verified Date Reported: FEB 02, 2024 Date Verified: FEB 02, 2024 Informal Waiter/Waitress E-Sig:/ES/GRETCHEN SHEPHERD JR Report: Study: Genitourinary ultrasound. [...] Primary Interpreting Staff: GRETCHEN SHEPHERD JR, Radiologist (Informal Waiter/Waitress) /GRETCHEN ESTEVEZ JR [facility] Encounter Notes: All associated encounter notes This [...] Signed: 01/05/2024 12:45 COMPA ELLIS [facility]
--- OUTSIDE RECORDS SUMMARY | 2024-12-03 17:17 | XMS_ITS | Continuity of Care Document ---
Author Organization [facility] [address] [facility] [address] [place] [address] Phone [phone] Care Team Providers Care Toe Puller Name Role Phone Deyvi Brantley M.D. 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 07/26/2022 Cardizem ZB256bd Caps ER 24HR 1 tab by mouth every day Bridger Reece M.D. 07/26/2022 Jncymwphk60hf Tablets 1 by mouth every day Bridger Reece M.D. 07/26/2022 Metoprolol Iucyrnxb147ph Tablets 1 tab by mouth twice a day Bridger Reece M.D. 03/24/2022 Yrtozctbck67fj Tablets Take 1 Tablet By Mouth AT Bedtime Marcia Richard MD Atorvastatin Hbkcctn48ew Tablets 1 tab by mouth every evening 90tabs Deyvi Brantley M.D. Warfarin Mdhzqb0tp Tablets as directed Deyvi Brantley M.D. Levothyroxine Espxdq603gek Tablets 1 tab by mouth every morning Deyvi Brantley M.D. Tamsulosin HCL0.4mg Capsules 1 tab by mouth every night Unknown Novolog Uyaxgov639Fjbm/ML Solution Pen-Inject Inject 6 Units Under The Skin Before Meals Bridger Reece M.D. BD Pen Needle/Scarlet 2ND Gen/32G X 5/32 32G X 4 mm Misc Use 1 Needle Four Times Daily Bridger Reece M.D. Basaglar Kuvoqzl252Devd/ML Solution Pen-Inject Inject 25 Units Subcutaneously Once A Day Bridger Reece M.D. Quetvdy25401-23360Ze it Tablets 5 tabs ac and 2 before snacks Unknown Vital Signs Date Vital Result Comment 02/03/2023 8:54am BP Systolic 118 mmHg BP Diastolic 62 mmHg Heart Rate 76 /min Height 68 inches 5'8 Weight 187.00 lb BMI (Body Mass Index) 28.4 kg/m2 Results Test Acquired Date Facility Test Result H/L Range N ote Glucose Fingerstick 02/03/2023 Inhouse Glucose Fingerstick 116 Hemoglobin A1c 02/03/2023 Inhouse Hemoglobin A1c 7.3% Glucose Fingerstick 11/02/2022 Inhouse Glucose Fingerstick 161 Hemoglobin A1c 11/02/2022 Inhouse Hemoglobin A1c 7.4 Hemoglobin A1c 07/26/2022 Inhouse Hemoglobin A1c 7.8% Glucose Fingerstick 07/26/2022 Inhouse Glucose Fingerstick 147 Glucose Fingerstick 03/24/2022 Inhouse Glucose Fingerstick 299 Medical Devices [...]
--- OUTSIDE RECORDS SUMMARY | 2024-12-03 17:17 | XMS_ITS | Encounter Summary ---
Author Name [facility] [place] [facility] [facility] [place] Address [address] [place] [address] Care Team Providers Care Cable Former Name Role Phone MARICEL ELIAS Primary Care [...] SUPPLEMEN YAMILKA MEDEX 2 Apr 29, 2020 [id number] ALICE RUSSO PATIENT BCBS [place] MEDICARE SUPPLEMEN YAMILKA MEDEX 2 Apr 29, 2020 [id number] [phone] ALICE RUSSO PATIENT BCBS [facility] CE ORGANIZ [facility] SHARE ACTIV E Feb 27, 2012 [id number] ALICE RUSSO PATIENT [employer] ([id number]) PRESCRIPT ION L4TA* Feb 27, 2012 [id number] ALICE RUSSO PATIENT [employer] ([id number]) PRESCRIPT ION Feb 27, 2012 [id number] ALICE RUSSO PATIENT MEDICARE (WNR) MEDICARE (M) PART A Apr 29, 2020 PART A [id number] ALICE RUSSO PATIENT MEDICARE (WNR) MEDICARE (M) PART B Apr 29, 2020 PART B [id number] [phone] ALICE RUSSO PATIENT MEDICARE (WNR) MEDICARE (M) PART A Apr 29, 2020 PART A [id number] ALICE RUSSO PATIENT MEDICARE (WNR) MEDICARE (M) PART B Apr 29, 2020 PART B [id number] ALICE RUSSO PATIENT Selected Encounter This section includes the information on record at [place] for the Encounter. 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 [facility] [place] [facility] Jul 17, 2024 01:36 PM SECONDARY Essential (primary) hypertension [facility] [place] [facility] Jul 17, 2024 01:36 PM SECONDARY Hyperlipidemia, unspecified [facility] [place] [facility] Jul 17, 2024 01:36 PM SECONDARY Hyperparathyroidis m, unspecified [facility] [place] [facility] Jul 17, 2024 01:36 PM SECONDARY Hypothyroidism, unspecified [facility] [place] [facility] Plan of Treatment: Future Appointments (+ 6 months) and Future Tests (+/- 45 days) The Plan of Treatment section includes future care activities for the patient from all [place] treatmentfacilities. This section includes future appointments and future orders which are active, pending or scheduled. Future Appointments This section includes appointments that were scheduled to occur 6 months from the date of the Encounter, up to a maximum of 20 appointments. The data comes from all [place] treatment [facility]. Appointment Date/Time Appointment Type Appointme nt Facility Name Jul 04, 2024 09:00 AM AMBULATORY [facility]IC[facility] [place] [facility] Sep 06, 2024 03:00 PM AMBULATORY - MEDICINE [facility] Sep 20, 2024 08:30 AM AMBULATORY - MEDICINE [facility] Sep 26, 2024 09:30 AM AMBULATORY [facility] MEDICINE [facility] [place] [facility] Oct 10, 2024 08:30 AM AMBULATORY [facility] MEDICINE [facility] [place] [facility] Oct 23, 2024 03:00 PM AMBULATORY - NONE [facility] [place] [facility] Oct 23, 2024 03:15 PM AMBULATORY [facility] MEDICINE [facility] [facility] Oct 23, 2024 03:30 PM AMBULATORY - [place]ICINE [place] [facility] [place] [facility] Nov 22, 2024 08:00 AM AMBULATORY - [place]ICINE [place] [facility] [facility] Nov 30, 2024 09:30 AM AMBULATORY - NONE [facility] [place] [facility] Dec 24, 2024 08:00 AM AMBULATORY - [place]ICINE [place] [facility] [facility] Dec 24, 2024 09:30 AM AMBULATORY - [place]ICINE [place] [facility] [facility] Active, Pending, and Scheduled Orders This section includes a listing of several types of active, pending, and scheduled orders, including clinic medications orders, diagnostic test orders, procedure orders and consult orders; where the start date of the order is 45 days before the date of the Encounter or 45 days after the date of theEncounter. The data comes from all [place] treatment [facility]. Test Date/Time Test Type Test Details Facility Name Jun 27, 2024 12:00 AM Laboratory - Chemistry Order PT & INR (PROTIME) BLOOD (BLUE-PLASMA) [facility] [place] [facility] Jun 27, 2024 12:00 AM Laboratory - Chemistry Order PSA BLOOD (SST-SERUM) [facility] Jun 27, 2024 12:00 AM Laboratory - Chemistry Order HEMOGLOBIN A1C PANEL BLOOD (LAV-BLOOD) [facility] Jun 27, 2024 12:00 AM Laboratory - Chemistry Order TSH BLOOD (SST-SERUM) [facility] Jun 27, 2024 12:00 AM Laboratory - Chemistry Order CBC BLOOD (LAV-BLOOD) [facility] Jun 27, 2024 12:00 AM Laboratory - Chemistry Order BASIC METABOLIC PANEL (non-fasting) BLOOD (SST-SERUM) [facility] Jul 02, 2024 12:00 AM Laboratory - Chemistry Order CALCIUM, 24HR PANEL 24 HR URINE [facility] Jul 02, 2024 12:00 AM Laboratory - Chemistry Order TSH BLOOD (SST-SERUM) [facility] Jul 02, 2024 12:00 AM Laboratory - Chemistry Order CALCIUM BLOOD (SST-SERUM) [facility] Lab Results: +/- 30 days of the encounter This section includes the Chemistry and Hematology Lab Results on record with [place] for the patient. Radiology Reports and Pathology Reports are provided separately, in subsequent sections. Lab Results This section contains the Chemistry/Hematology Results that were resulted 30 days before or 30 daysafter the date of the Encounter. Date/Time Source Result Type Result - Unit Interpretation Reference Range Comment Jun 27, 2024 11:33 AM [facility] THYROID T4 FREE(FT4) (WROX) Specimen Type: SERUM No comment entered. Ordering Provider: COMPA ELLIS Report Released Date/Time: Apr 20, 2024 06:27 PM Reporting Lab: [facility] [address] [facility] [address] Performing Lab: [facility] [address] [facility] [address] THYROID T4 FREE(FT4) (WROX) 1.55 ng/dL 0.6-1.6 Jun 27, 2024 11:33 AM [facility] CALCIUM Specimen Type: SERUM No comment entered. Ordering Provider: COMPA ELLIS Report Released Date/Time: Apr 20, 2024 06:27 PM Reporting Lab: [facility] [address] [facility] [address] Performing Lab: [facility] [address] [facility] [address] CALCIUM 9.4 mg/dL 8.5-10.2 Jun 27, 2024 11:33 AM [facility] VITAMIN D (25-OH) Specimen Type: SERUM No comment entered. Ordering Provider: COMPA ELLIS Report Released Date/Time: Apr 20, 2024 06:27 PM Reporting Lab: [facility] [address] [facility] [address] Performing Lab: [address] [address] VITAMIN D (25-OH) 37 ng/mL 20-50 Jun 27, 2024 11:33 AM [facility] PTH INTACT Specimen Type: SERUM No comment entered. Ordering Provider: COMPA ELLIS Report Released Date/Time: Apr 20, 2024 06:27 PM Reporting Lab: [facility] [address] [facility] [address] Performing Lab: [facility] [address] [facility] [address] PTH INTACT 62.8 pg/mL 65 Jun 25, 2024 10:14 AM [facility] HEMOGLOBIN A1C PANEL Specimen Type: BLOOD [...] Jun 14, 2024 02:11 PM Reporting Lab: [facility] [address] [facility] [address] Performing Lab: [address] [address] HEMOGLOBIN A1C 6.3 H 4.0-5.6 Jun 25, 2024 10:14 AM [facility] CBC Specimen Type: BLOOD No comment entered. Ordering Provider: OSIRIS ELIAS AM Report Released Date/Time: Jun 14, 2024 02:11 PM Reporting Lab: [facility] [address] [facility] [address] Performing Lab: [facility] [address] [facility] [address] WBC 6.96 10*3/uL 4.50-11.00 RBC 4.67 10*6/uL 4.23-5.66 HGB 15.9 g/dL 12.8-17 HCT 46.1 39.2-50.4 MCV 98.7 fL 82-99 MCHC 34.5 g/dL 30.8-35.1 PLT 148 10*3/uL 140-360 RDW-CV 13.0 12.0-16.0 MCH 34.0 pg H 26.2-32.6 Jun 25, 2024 10:14 AM [facility] LIPID PANEL, NON FASTING Specimen Type: SERUM No comment entered. Ordering Provider: OSIRIS ELIAS AM Report Released Date/Time: Jun 14, 2024 02:11 PM Reporting Lab: [facility] [address] [facility] [address] Performing Lab: [address] [address] CHOLESTEROL 95 mg/dL TRIGLYCERIDE 91 mg/dL 0-150 LDL calculated 30 mg/dL 0-129 CHOL/HDL 2.0 HDL CHOLESTEROL 47 mg/dL 40-60 Jun 25, 2024 10:14 AM [facility] LIVER FUNCTION Specimen Type: SERUM No comment entered. Ordering Provider: OSIRIS ELIAS AM Report Released Date/Time: Jun 14, 2024 02:11 PM Reporting Lab: [facility] [address] [facility] [address] Performing Lab: [address] [address] PROTEIN,TOTAL 7.0 g/dL 6.0-8.3 ALBUMIN 4.0 g/dL 3.5-5.0 ALKALINE PHOSPHATASE 88 U/L 40-150 AST 14 U/L 5-34 ALT 17 U/L BILIRUBIN, TOTAL 0.7 mg/dL 0.2-1.2 Jun 25, 2024 10:14 AM [facility] BASIC METABOLIC PANEL (non-fasting) Specimen Type: SERUM No comment entered. Ordering Provider: OSIRIS ELIAS AM Report Released Date/Time: Jun 14, 2024 02:11 PM Reporting Lab: [address] [address] Performing Lab: [address] [address] UREA NITROGEN 9 mg/dL 7-25 GLUCOSE 166 mg/dL H 65-100 SODIUM 137 mmol/L 135-145 POTASSIUM 3.8 mmol/L 3.5-5.0 CHLORIDE 103 mmol/L 100-110 CO2 23 meq/L 20-30 CREATININE, Serum 1.00 mg/dL 0.50-1.40 eGFR(CKD-EPI 2020) 81 mL/min >60 Jun 25, 2024 10:14 AM [facility] MICROALBUMIN CREATININE RATIO PANEL Specimen Type: URINE No comment entered. Ordering Provider: OSIRIS ELIAS AM Report Released Date/Time: Jun 14, 2024 02:11 PM Reporting Lab: [address] [address] Performing Lab: [address] [address] MICROALBUMIN/C REATININE RATIO 18.0 mg/g 0-29.9 MICROALBUMIN,Q UANTITATIVE 1.3 mg/dL RR UNAVAIL CREATININE URINE 72.19 mg/dL Jun 25, 2024 10:14 AM [facility] PSA Specimen Type: SERUM No comment entered. Ordering Provider: OSIRIS ELIAS AM Report Released Date/Time: Jun 14, 2024 02:11 PM Reporting Lab: [address] [address] Performing Lab: [address] [place] [address] PSA < 0.10 ng/mL 0.00-4.00 Jun 25, 2024 10:14 AM [facility] TSH Specimen Type: SERUM No comment entered. Ordering Provider: OSIRIS ELIAS AM Report Released Date/Time: Jun 14, 2024 02:11 PM Reporting Lab: [address] [address] Performing Lab: [address] [address] TSH 3.53 u[IU]/mL 0.35-5.00 Jun 25, 2024 10:14 AM [facility] PT & INR (PROTIME) Specimen Type: PLASMA No comment entered. Ordering Provider: OSIRIS ELIAS AM Report Released Date/Time: Jun 14, 2024 02:11 PM Reporting Lab: [address] [address] Performing Lab: [address] [address] INR 2.3 PROTIME 25.5 s H 10.0-13.1 Vital Signs: All taken on the encounter date This section contains inpatient and outpatient Vital Signs collected on the date of the Encounter. Date/Time Temperature Pulse Blood Pressure Respiratory Rate SP02 Pain Height Weight Body Mass Index Source Jul 02, 2024 10:43 AM 98.2 74 118/74 16 99 10 173 26 [facility] Social History: Smoking Status (Most current) and Tobacco Use (All prior to encounter date) This section includes the most current, and the historical, smoking and tobacco- related health factors from the [place] facility where the Encounter took place. Current Smoking Status This section includes the most current smoking, or tobacco-related health factor, from the [place] facility where the Encounter took place. Date/Time Current Smoking Status Comment Facil [facility] Jun 27, 2024 11:00 AM VA-TOBACCO USE MICHELLE RY DAY CIGARETTES [facility] Tobacco Use History This section includes a history of the smoking, or tobacco-related health factors, that were collected on or before the date of the Encounter. The data comes from the [place] facility where the Encounter took place. Date/Time Smoking Status/Tobacco Use Comment F acility Jun 27, 2024 11:00 AM VA-TOBACCO SCREEN FOLLOW-UP [facility] [place] [facility] Jun 27, 2024 11:00 AM VA-TOBACCO USE ADVICE [facility] [place] [facility] Jun 27, 2024 11:00 AM VA-TOBACCO USE FISHER EEL SPEAR NO [facility] [place] [facility] Jun 27, 2024 11:00 AM VA-TOBACCO USE MICHELLE RY DAY CIGARETTES [facility] [place] [facility] Jun 27, 2024 11:00 AM VA-TOBACCO USE MED NO [facility] [place] [facility] Sep 09, 2020 08:36 AM VA-TOBACCO DOESNT USE WI 30 MIN WAKEUP [place] [facility] [facility] Sep 09, 2020 08:36 AM VA-TOBACCO USE 30 YEARS OR MORE [facility] [place] [facility] Sep 09, 2020 08:36 AM VA-TOBACCO USE ADVICE [facility] [place] [facility] Sep 09, 2020 08:36 AM VA-TOBACCO USE FISHER EEL SPEAR NO [facility] [place] [facility] Sep 09, 2020 08:36 AM VA-TOBACCO USE MED NO [facility] [place] [facility] Sep 09, 2020 08:36 AM VA-TOBACCO USER EVERY DAY [facility] [place] [facility] Encounter Notes: All associated encounter notes [...] obstruction, severe flare of sciatica. Followed by [facility]. He has us carotid at [facility], and states thyroid n odule seen. [...] 27, 2024@11:33 VITAMIN D (25-OH): 37 ng/mL 20 - 50 Jun 27, 2024@11:33 PTH INTACT: [...] disease 17. Abdominal aortic aneurysm (SNOMED CT [id number]) 18. Localized osteoarthrosis 19. Sciatica 20. Primary [...] 2 3/4IN APPLY 1 DRESSING ACTIVE TOPICALLY [id number] Non-VA ASPIRIN 81MG EC TAB 81MG BY [...] of active outpatient prescriptions dispensed from this [place] (local) and dispensed from another [place] or DoD facility (remote) as well as [...] Remote Allergy/ADR Data available for this patient [place] [facility] Med Recon NoGlossary (Tool #1) INCLUDED [...] the patient into personal health records (i.e. [employer]) are NOT included in this list. Non-VA medications documented outside this [place], remote inpatient orders (regardless of status) and [...] BY MOUTH ONCE DAILY FOR DIABETES Rx# [id number] Last Released: 03/19/24 Qty/Days Supply: Rx Expiration [...] 8 GM OF CARBS AT DINNER. Rx# [id number] Last Released: 12/06/23 Qty/Days Supply: Rx Expiration Date: 06/08/24 Refills Remainin Indication: FOR DIABETES OUTPT INSULIN,ASPART(EQV-NOVLG)100UN /ML FLXPEN (Status = On Hold) INJECT DIRECTED SUBCUTANEOUSLY THREE TIMES A DAY 3 UNITS AT BREAKFAST, 1 UNIT PER 8 GM CARB LUNCH, AND 1 UNIT PER 7 GM CARB DINNER PLEASE HOLD UNTIL REQUESTED Rx# [id number] Last Released: Qt Supply: Rx Expiration Date: 05/04/25 Refills Remainin Indication: FOR DIABETES OUTPT INSULIN,GLARGINE-YFGN 100UNIT/ML PEN 3ML (Status = Discontinued) INJECT 21 UNITS SUBCUTANEOUSLY EVERY MORNING Rx# [id number] Last Released: 01/09/24 Qty/Days Supply: Rx Expiration Date: 01/05/25 Refills Remainin Indication: FOR DIABETES OUTPT INSULIN,GLARGINE-YFGN 100UNIT/ML PEN 3ML (Status = On Hold) INJECT 20 UNITS SUBCUTANEOUSLY EVERY MORNING Rx# [id number] Last Released: Qt Supply: Rx Expiration Date: 05/04/25 Refills Remainin Indication: FOR DIABETES OUTPT LEVOTHYROXINE NA (SYNTHROID) 175MCG TAB (Status = Active) TAKE ONE TABLET BY MOUTH EVERY MORNING 30 MINUTES BEFORE BREAKFAST FOR THYROID - TAKE ON AN EMPTY STOMACH WITH A FULL GLASS OF WATER Rx# [id number] Last Released: 06/20/24 Qty/Days Supply: Rx Expiration Date: 03/17/25 Refills Remainin Indication: FOR THYROID OUTPT LEVOTHYROXINE NA (SYNTHROID) 175MCG TAB (Status = Pending) TAKE ONE TABLET BY MOUTH EVERY MORNING 30 MINUTES BEFORE BREAKFAST FOR THYROID - TAKE ON AN EMPTY STOMACH WITH A FULL GLASS OF WATER Renewed from Rx# [id number] Qty/Days Supply: Login Date: 07/02/24 Refills Ordered: 1 OUTPT LIDOCAINE 5% OINT (Status = Discontinued) APPLY LIBERAL AMOUNT TOPICALLY TWICE DAILY NERVE PAIN Rx# [id number] Last Released: 01/09/24 Qty/Days Supply: Rx Expiration Date: 01/05/25 Refills Remainin Indication: NERVE PAIN OUTPT LIDOCAINE 5% PATCH (Status = Active) APPLY 1 PATCH TOPICALLY ONCE DAILY FOR NERVE PAIN (LEAVE PATCH ON FOR 12 HOURS, THEN REMOVE PATCH) Rx# [id number] Last Released: 06/29/24 Qty/Days Supply: Rx Expiration [...] DAILY NEEDED FOR NAUSEA AND VOMITING Rx# [id number] Last Released: 04/10/24 Qty/Days Supply: 60/30 Rx [...] THREE TIMES DAILY NEEDED SENSOR FAILURE Rx# [id number] Last Released: 11/03/23 Qty/Days Supply: 100/30 Rx Expiration Date: 10/21/24 Refills Remainin Indication: SENSOR FAILURE OUTPT ACCU-CHEK GUIDE (GLUCOSE) TEST STRIP (Status = Active) USE 1 STRIP TO TEST BLOOD SUGARS THREE TIMES DAILY NEEDED SENSOR FAILURE Rx# [id number] Last Released: 05/10/24 Qty/Days Supply: 100/30 Rx Expiration Date: 05/04/25 Refills Remainin Indication: SENSOR FAILURE OUTPT DEPEND UNDERWEAR,MAXIMUM,MEN SM/MED (Status = Active) USE 1 BRIEF DIRECTED ONCE DAILY NEEDED Rx# [id number] Last Released: 04/10/24 Qty/Days Supply: 76 Rx Expiration Date: 08/01/24 Refills Remainin Indication: INCONTINENCE OUTPT GLUCOSE SENSOR FREESTYLE REYES 3 (Status = Discontinued) USE 1 SENSOR DIRECTED EVERY 14 DAYS Rx# [id number] Last Released: 03/08/24 Qty/Days Supply: 10/26 Rx Expiration Date: 01/06/25 Refills Remainin OUTPT GLUCOSE SENSOR FREESTYLE REYES 3 (Status = Active) USE 1 SENSOR DIRECTED EVERY 14 DAYS Rx# [id number] Last Released: 06/21/24 Qty/Days Supply: 10/26 Rx Expiration Date: 04/28/25 Refills Remainin OUTPT GLUCOSE SENSOR FREESTYLE REYES 3 (Status = Pending) GLUCOSE SENSOR FREESTYLE RYEES 3 USE 1 SENSOR DIRECTED EVERY 14 DAYS Renewed from Rx# [id number] Qty/Days Supply: 10/26 Login Date: 07/02/24 Refills Ordered: 5 OUTPT NEEDLE,PEN 32G,4MM (Status = Active) USE 1 NEEDLE SUBCUTANEOUSLY FOUR TIMES A DAY FOR USE WITH PEN DEVICE Rx# [id number] Last Released: 05/03/24 Qty/Days Supply: / Rx Expiration Date: 07/26/24 Refills Remainin OUTPT TRANSPARENT DRESSING 2 3/8IN X 2 3/4IN (Status = Active) APPLY 1 DRESSING TOPICALLY [id number] Rx# [id number] Last Released: 12/13/23 Qty/Days Supply: Rx Expiration Date: 12/13/24 Refills Remainin OUTPT TRANSPARENT DRESSING 2 3/8IN X 2 3/4IN (Status = Pending) DRESSING 2 3/8IN X 2 3/4IN APPLY 1 DRESSING TOPICALLY [id number] Renewed from Rx# [id number] Qty/Days Supply: Login Date: 07/02/24 Refills Ordered: Mauro khan/ COMPA ELLIS MD STAFF PHYSICIAN Signed: 07/02/2024 11:08 COMPA ELLIS [facility] [place] [facility]
--- OUTSIDE RECORDS SUMMARY | 2024-12-03 17:17 | XMS_ITS | Encounter Summary ---
Author Name [facility] [facility] [place] [facility] [place] Address [address] [place] [id number] Care Team Providers Care Fiber Picker Name Role Phone MARICEL BAIN Primary Care [...] SUPPLEMEN YAMILKA MEDEX 2 Apr 29, 2020 [id number] ALICE RUSSO PATIENT [place] SUPPLEMEN YAMILKA MEDEX 2 Apr 29, 2020 [id number] ALICE RUSSO PATIENT BCBS [facility] SHARE ACTIV E Feb 27, 2012 [id number] ALICE RUSSO PATIENT [employer] ([id number]) PRESCRIPT ION L4TA* Feb 27, 2012 [id number] ALICE RUSSO PATIENT [employer] ([id number]) PRESCRIPT ION Feb 27, 2012 [id number] [id number] ALICE RUSSO PATIENT MEDICARE (WNR) MEDICARE (M) PART A Apr 29, 2020 PART A [id number] ALICE RUSSO PATIENT MEDICARE (WNR) MEDICARE (M) PART B Apr 29, 2020 PART B [id number] ALICE RUSSO PATIENT MEDICARE (WNR) MEDICARE (M) PART A Apr 29, 2020 PART A [id number] [phone] ALICE RUSSO PATIENT MEDICARE (WNR) MEDICARE (M) PART B Apr 29, 2020 PART B [id number] ALICE RUSSO PATIENT Selected Encounter This section includes the information on record at [place] for the Encounter. Date/Time Encounter Type Encounter Description Reason Provider Source Jun 27, 2024 11:00 AM OFFICE O/P EST MOD 30 MIN PRIMARY CARE/MEDICINE ICD-10-CM M85.9 Disorder of bone density and structure, unspecified OSIRIS BAIN AM Encounter Template Text not used by [place] Assessments - Encounter Diagnoses This section includes the primary and secondary diagnoses documented for the Encounter. Date/Time Primary/Secondary Diagnosis Diagnosis Name Provider Source Jul 14, 2024 11:30 AM PRIMARY Disorder of bone density and structure, unspecified BAIN,WILL JORGE J [place] [facility] [place] [facility] Jul 14, 2024 11:30 AM SECONDARY Diabetes due to underlying condition w/o complications BAIN,WILL JORGE J [place] [facility] [place] [facility] Jul 14, 2024 11:30 AM SECONDARY Essential (primary) hypertension BAIN,WILL JORGE J [place] [facility] [facility] [place] [facility] Jul 14, 2024 11:30 AM SECONDARY Hyperparathyroidis m, unspecified BAIN,WILL JORGE J [place] [facility] [place] [facility] Jul 14, 2024 11:30 AM SECONDARY Malignant neoplasm of bladder, unspecified BAIN,WILL JORGE J [place] [facility] [place] [facility] Jul 14, 2024 11:30 AM SECONDARY Meniere's disease, unspecified ear BAIN,WILL JORGE J [place] [facility] [facility] [place] [facility] Jul 14, 2024 11:30 AM SECONDARY Unspecified atrial fibrillation JAIRO BAIN J [place] [facility] [facility] [place] [facility] Plan of Treatment: Future Appointments (+ 6 months) and Future Tests (+/- 45 days) The Plan of Treatment section includes future care activities for the patient [facility] [place] [facility] This section includes future appointments and future [...] 02, 2024 10:30 AM AMBULATORY - MEDICINE [place] [facility] [place] [facility] Jul 04, 2024 09:00 AM AMBULATORY - MEDICINE [place] [facility] [place] [facility] Sep 06, 2024 03:00 PM AMBULATORY - MEDICINE [facility] Sep 20, 2024 08:30 AM AMBULATORY - MEDICINE [facility] Sep 26, 2024 09:30 AM AMBULATORY - MEDICINE [place] [facility] [place] [facility] Oct 10, 2024 08:30 AM AMBULATORY - MEDICINE [place] [facility] [place] [facility] Oct 23, 2024 03:00 PM AMBULATORY - NONE [place] [facility] [place] [facility] Oct 23, 2024 03:15 PM AMBULATORY - MEDICINE [place] C [facility] [place] [facility] Oct 23, 2024 03:30 PM AMBULATORY - MEDICINE [place] C [facility] [place] [facility] Nov 22, 2024 08:00 AM AMBULATORY - MEDICINE [place] C [facility] [place] [facility] Nov 30, 2024 09:30 AM AMBULATORY - NONE [place] [facility] [place] [facility] Dec 24, 2024 08:00 AM AMBULATORY - MEDICINE [place] C [facility] [place] [facility] Dec 24, 2024 09:30 AM AMBULATORY - MEDICINE [place] C [facility] [place] [facility] Active, Pending, and Scheduled Orders This section includes a listing of several types of active, pending, and scheduled orders, including clinic medications orders, diagnostic test orders, procedure orders and consult orders; where the start date of the order is 45 days before the date of the Encounter or 45 days after the date of theEncounter. The data comes from all [place] treatment facilities. Test Date/Time Test Type Test Details Facility Name Jun 27, 2024 12:00 AM Laboratory - Chemistry Order PT & INR (PROTIME) BLOOD (BLUE-PLASMA) [facility] Jun 27, 2024 12:00 AM Laboratory - Chemistry Order PSA BLOOD (SST-SERUM) [facility] Jun 27, 2024 12:00 AM Laboratory - Chemistry Order HEMOGLOBIN A1C PANEL BLOOD (LAV-BLOOD) [facility] Jun 27, 2024 12:00 AM Laboratory - Chemistry Order TSH BLOOD (SST-SERUM) [facility] Jun 27, 2024 12:00 AM Laboratory - Chemistry Order CBC BLOOD (LAV-BLOOD) [facility] Jun 27, 2024 12:00 AM Laboratory - Chemistry Order BASIC METABOLIC PANEL (non-fasting) BLOOD (SST-SERUM) [facility] Jul 02, 2024 12:00 AM Laboratory - Chemistry Order CALCIUM, 24HR PANEL 24 HR URINE [facility] Jul 02, 2024 12:00 AM Laboratory - Chemistry Order TSH BLOOD (SST-SERUM) [facility] Jul 02, 2024 12:00 AM Laboratory - Chemistry Order CALCIUM BLOOD (SST-SERUM) [facility] Lab Results: +/- 30 days of the encounter This section includes the Chemistry and Hematology Lab Results on record with [place] for the patient. Radiology Reports and Pathology Reports are provided separately, in subsequent sections. Lab Results This section contains the Chemistry/Hematology Results that were resulted 30 days before or 30 daysafter the date of the Encounter. Date/Time Source Result Type Result - Unit Interpretation Reference Range Comment Jun 27, 2024 11:33 AM [facility] THYROID T4 FREE(FT4) (WROX) Specimen Type: SERUM No comment entered. Ordering Provider: COMPA ELLIS Report Released Date/Time: Apr 20, 2024 06:27 PM Reporting Lab: [address] [address] Performing Lab: [facility] [address] [facility] [address] THYROID T4 FREE(FT4) (WROX) 1.55 ng/dL 0.6-1.6 Jun 27, 2024 11:33 AM [facility] CALCIUM Specimen Type: SERUM No comment entered. Ordering Provider: COMPA ELLIS Report Released Date/Time: Apr 20, 2024 06:27 PM Reporting Lab: [facility] [address] [facility] [address] Performing Lab: [facility] [address] [facility] [address] CALCIUM 9.4 mg/dL 8.5-10.2 Jun 27, 2024 11:33 AM [facility] VITAMIN D (25-OH) Specimen Type: SERUM No comment entered. Ordering Provider: COMPA ELLIS Report Released Date/Time: Apr 20, 2024 06:27 PM Reporting Lab: [facility] [place] [facility] [address] [facility] [address] Performing Lab: [facility] [address] [facility] [address] VITAMIN D (25-OH) 37 ng/mL 20-50 Jun 27, 2024 11:33 AM [facility] PTH INTACT Specimen Type: SERUM No comment entered. Ordering Provider: COMPA ELLIS Report Released Date/Time: Apr 20, 2024 06:27 PM Reporting Lab: [facility] [place] [facility] [address] [facility] [address] Performing Lab: [facility] [address] [facility] [address] PTH INTACT 62.8 pg/mL 10-65 Jun 25, 2024 10:14 AM [facility] HEMOGLOBIN A1C PANEL Specimen Type: BLOOD [...] Jun 14, 2024 02:11 PM Reporting Lab: [facility] [address] [facility] [address] Performing Lab: [address] [address] HEMOGLOBIN A1C 6.3 H 4.0-5.6 Jun 25, 2024 10:14 AM [facility] CBC Specimen Type: BLOOD No comment entered. Ordering Provider: OSIRIS BAIN AM Report Released Date/Time: Jun 14, 2024 02:11 PM Reporting Lab: [facility] [address] [facility] [address] Performing Lab: [address] [address] WBC 6.96 10*3/uL 4.50-11.00 RBC 4.67 10*6/uL 4.23-5.66 HGB 15.9 g/dL 12.8-17 HCT 46.1 39.2-50.4 MCV 98.7 fL 82-99 MCHC 34.5 g/dL 30.8-35.1 PLT 148 10*3/uL 140-360 RDW-CV 13.0 12.0-16.0 MCH 34.0 pg H 26.2-32.6 Jun 25, 2024 10:14 AM [facility] LIPID PANEL, NON FASTING Specimen Type: SERUM No comment entered. Ordering Provider: OSIRIS BAIN AM Report Released Date/Time: Jun 14, 2024 02:11 PM Reporting Lab: [address] [address] Performing Lab: [address] [address] CHOLESTEROL 95 mg/dL TRIGLYCERIDE 91 mg/dL 0-150 LDL calculated 30 mg/dL 0-129 CHOL/HDL 2.0 HDL CHOLESTEROL 47 mg/dL 40-60 Jun 25, 2024 10:14 AM [facility] LIVER FUNCTION Specimen Type: SERUM No comment entered. Ordering Provider: OSIRIS BAIN AM Report Released Date/Time: Jun 14, 2024 02:11 PM Reporting Lab: [facility] [address] [facility] [address] Performing Lab: [facility] [address] [facility] [address] PROTEIN,TOTAL 7.0 g/dL 6.0-8.3 ALBUMIN 4.0 g/dL 3.5-5.0 ALKALINE PHOSPHATASE 88 U/L 40-150 AST 14 U/L 5-34 ALT 17 U/L BILIRUBIN, TOTAL 0.7 mg/dL 0.2-1.2 Jun 25, 2024 10:14 AM [facility] BASIC METABOLIC PANEL (non-fasting) Specimen Type: SERUM No comment entered. Ordering Provider: OSIRIS BAIN AM Report Released Date/Time: Jun 14, 2024 02:11 PM Reporting Lab: [facility] [address] [facility] [address] Performing Lab: [facility] [address] [facility] [address] UREA NITROGEN 9 mg/dL 7-25 GLUCOSE 166 mg/dL H 65-100 SODIUM 137 mmol/L 135-145 POTASSIUM 3.8 mmol/L 3.5-5.0 CHLORIDE 103 mmol/L 100-110 CO2 23 meq/L 20-30 CREATININE, Serum 1.00 mg/dL 0.50-1.40 eGFR(CKD-EPI 2020) 81 mL/min >60 Jun 25, 2024 10:14 AM [facility] MICROALBUMIN CREATININE RATIO PANEL Specimen Type: URINE No comment entered. Ordering Provider: OSIRIS BAIN AM Report Released Date/Time: Jun 14, 2024 02:11 PM Reporting Lab: [facility] [address] [facility] [address] Performing Lab: [address] [address] MICROALBUMIN/C REATININE RATIO 18.0 mg/g 0-29.9 MICROALBUMIN,Q UANTITATIVE 1.3 mg/dL RR UNAVAIL CREATININE URINE 72.19 mg/dL Jun 25, 2024 10:14 AM [facility] PSA Specimen Type: SERUM No comment entered. Ordering Provider: OSIRIS BAIN AM Report Released Date/Time: Jun 14, 2024 02:11 PM Reporting Lab: [facility] [address] [facility] [address] Performing Lab: [facility] [address] PSA < 0.10 ng/mL 0.00-4.00 Jun 25, 2024 10:14 AM [facility] TSH Specimen Type: SERUM No comment entered. Ordering Provider: OSIRIS BAIN AM Report Released Date/Time: Jun 14, 2024 02:11 PM Reporting Lab: [facility] [address] [facility] [address] Performing Lab: [facility] [address] [facility] [address] TSH 3.53 u[IU]/mL 0.35-5.00 Jun 25, 2024 10:14 AM [facility] PT & INR (PROTIME) Specimen Type: PLASMA No comment entered. Ordering Provider: OSIRIS BAIN AM Report Released Date/Time: Jun 14, 2024 02:11 PM Reporting Lab: [facility] [address] Performing Lab: [facility] [address] INR 2.3 PROTIME 25.5 s H 10.0-13.1 Vital Signs: All taken on the encounter date This section contains inpatient and outpatient Vital Signs collected on the date of the Encounter. Date/Time Temperature Pulse Blood Pressure Respiratory Rate SP02 Pain Height Weight Body Mass Index Source Jun 27, 2024 10:53 AM 98.3 76 150/93 20 100 9 68 182 28 [facility] Social History: Smoking Status (Most [...] AM VA-TOBACCO USE MICHELLE RY DAY CIGARETTES [place] [facility] Tobacco Use History This section includes a history of the smoking, or tobacco-related health factors, that were collected on or before the date of the Encounter. The data comes from the [place] facility where the Encounter took place. Date/Time Smoking Status/Tobacco Use Comment F acility Jun 27, 2024 11:00 AM VA-TOBACCO SCREEN FOLLOW-UP [place] [facility] [facility] [place] [facility] Jun 27, 2024 11:00 AM VA-TOBACCO USE ADVICE [place] [facility] [place] [facility] Jun 27, 2024 11:00 AM VA-TOBACCO USE PHLEBOTOMY SUPERVISOR NO [place] [facility] [place] [facility] Jun 27, 2024 11:00 AM VA-TOBACCO USE MICHELLE RY DAY CIGARETTES [place] [facility] [facility] [facility] Jun 27, 2024 11:00 AM VA-TOBACCO USE MED NO [place] [facility] [place] [facility] Sep 09, 2020 08:36 AM VA-TOBACCO DOESNT USE WI 30 MIN WAKEUP [place] [facility] [facility] [facility] Sep 09, 2020 08:36 AM VA-TOBACCO USE 30 YEARS OR MORE [place] [facility] [place] [facility] Sep 09, 2020 08:36 AM VA-TOBACCO USE ADVICE [place] [facility] [place] [facility] Sep 09, 2020 08:36 AM VA-TOBACCO USE PHLEBOTOMY SUPERVISOR NO [place] [facility] [place] [facility] Sep 09, 2020 08:36 AM VA-TOBACCO USE MED NO [place] [facility] [place] [facility] Sep 09, 2020 08:36 AM VA-TOBACCO USER EVERY DAY [place] [facility] [facility] [place] [facility] Encounter Notes: All associated encounter notes This section contains the clinical notes associated to the Encounter. Date/Time Encounter Note(s) Provider Source Jun 28, 2024 07:44 AM ADDENDUM: LOCAL TITLE: Addendum STANDARD TITLE: ADDENDUM DATE OF NOTE: JUN 28, 2024@07:44 ENTRY DATE: JUN 28, 2024@07:44:01 AUTHOR: MARICEL BAIN EXP COSIGNER: URGENCY: STATUS: COMPLETED please assign to NO PACT 7. /es/ Maricel Bain DNP, FOOD SAFETY SCIENTIST-BC, CNL Primary Care Nurse Practitioner Signed: 06/28/2024 07:44 Receipt Acknowledged By: 07/03/2024 15:20 /es/ DIANE MARTINEZ CONVEYOR SYSTEM OPERATOR AMSA === --- Original Document --- 06/27/24 NURSE PRACTITIONER OUTPATIENT NOTE: Chief complaint: Patient is a 69 year old [place]. HPI: Pleasant male here to follow up, first visit with me. He was following in [facility]. He is followed in the community, Dr. [...] 10:53)BMI: 27.7182 lb [82.55 kg] (06/27/2024 10:53) [place] is alert and oriented X3 Cardiovasc: 2plus [...] SA 360mg/day and coumadin 3. CAD (s/p PR 2003): on metoprolol tartrate 50mg BID, followed by cardiology/Dr Strong 4. Peripheral Vascular Dz: on warfarin as directed by Dr Brantley, s/p RLE bypass, s/p 4 stents LLE, followed by Dr Daley 5. AAA: followed by Dr Daley, CALISTA on screening, stable at 2 cm (right common iliac artery) 6. Hypertension: on diltiazem 360mg/day and metoprolol tartrate 50mg BID 7. Mixed Hyperlipidemia: on statin, well controlled 8. DM Type 2: (panctogenic diabetes) managed by Dr Ellis, controlled 9. Hypothyroidism: managed by Dr Ellis 10. Osteoporosis: on calcium/Vit D daily, managed by Dr Ellis 11. Meniere's Dz: followed by nonVA ENT in [place] 12. 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 13. Gastroparesis: followed by GI 14. Tobacco [...] diminished) SENSORY CHECK: Includes 10 gram Monofilament (Rhodell-Wilma) test of sensation. Intact (Greater than or [...] or non-VA provider. /samara/ Maricel Bain DNP, FOOD SAFETY SCIENTIST-BC, CNL Primary Care Nurse Practitioner Signed: 06/28/2024 07:43 MARICEL BAIN [place] [facility] [facility] [facility] Jun 27, 2024 11:00 AM PRIMARY CARE NURSE PRACTITIONER OUTPATIENT NOTE: LOCAL TITLE: NURSE PRACTITIONER OUTPATIENT NOTE STANDARD TITLE: PRIMARY CARE NURSE PRACTITIONER OUTPATIENT NOTE DATE OF NOTE: JUN 27, 2024@11:00 ENTRY DATE: JUN 28, 2024@07:32:34 AUTHOR: MARICEL BAIN EXP COSIGNER: URGENCY: STATUS: COMPLETED NURSE PRACTITIONER OUTPATIENT NOTE Has ADDENDA Chief complaint: Patient is a 69 year old [place]. HPI: Pleasant male [place] here to follow up, first visit with me. He was following in [facility]. He is followed in the community, Dr. [...] 10:53)BMI: 27.7182 lb [82.55 kg] (06/27/2024 10:53) [place] is alert and oriented X3 Cardiovasc: 2plus [...] SA 360mg/day and coumadin 3. CAD (s/p PR 2003): on metoprolol tartrate 50mg BID, followed by cardiology/Dr Strong 4. Peripheral Vascular Dz: on warfarin as directed by Dr Brantley, s/p RLE bypass, s/p 4 stents LLE, followed by Dr Daley 5. AAA: followed by Dr Daley, SDD on screening, stable at 2 cm (right common iliac artery) 6. Hypertension: on diltiazem 360mg/day and metoprolol tartrate 50mg BID 7. Mixed Hyperlipidemia: on statin, well controlled 8. DM Type 2: (panctogenic diabetes) managed by Dr Ellis, controlled 9. Hypothyroidism: managed by Dr Ellis 10. Osteoporosis: on calcium/Vit D daily, managed by Dr Ellis 11. Meniere's Dz: followed by nonVA ENT in [place] 12. 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 13. Gastroparesis: followed by GI 14. Tobacco [...] diminished) SENSORY CHECK: Includes 10 gram Monofilament (Rhodell-Wilma) test of sensation. Intact (Greater than or [...] or non-VA provider. /samara/ Maricel Bain DNP, FOOD SAFETY SCIENTIST-BC, CNL Primary Care Nurse Practitioner Signed: 06/28/2024 07:43 06/28/2024 ADDENDUM STATUS: COMPLETED please assign to NO PACT 7. /es/ ALMA Cota DNP-, GERALDO Primary Care Nurse Practitioner Signed: 06/28/2024 07:44 Receipt Acknowledged By: 07/03/2024 15:20 /es/ DIANE MARTINEZ CONVEYOR SYSTEM OPERATOR JACOB 09/04/2024 ADDENDUM STATUS: COMPLETED Assess Statin [...] Straight or Heterosexual /samara/ Maricel Bain DNP, FOOD SAFETY SCIENTIST-BC, CNL Primary Care Nurse Practitioner Signed: 09/04/2024 15:44 MARICEL BAIN [facility] Jun 27, 2024 10:56 AM PREVENTIVE MEDICINE NURSING NOTE: LOCAL TITLE: CLINICAL REMINDERS/NURSING STANDARD TITLE: PREVENTIVE MEDICINE NURSING NOTE DATE OF NOTE: JUN 27, 2024@10:56 ENTRY DATE: JUN 27, 2024@10:56:28 AUTHOR: CHACE PONCE COSIGNER: URGENCY: STATUS: COMPLETED Homelessness/Food Insecurity Screen: [...] Not worried about housing near future The [place] reports the following: Within the past 12 months, you worried whether your food would run out before you got money to buy more. Never true Within the past 12 months, the food you bought just didn't last and you didn't have money to get more. Never true /samara/ Chace [facility] Guide CHEMICAL PRODUCTION MACHINE OPERATOR,PRIMARY CARE Signed: 06/27/2024 10:57 CHACE PONCE [facility]
--- OUTSIDE RECORDS SUMMARY | 2024-12-03 17:17 | XMS_ITS | Encounter Summary ---
Author Organization [facility] Address [address] [place] [address] Care Team Providers Care Commercial Production Editor Name Role Phone Deyvi Brantley MD Primary Care Provider [phone] Reason for Visit * Reason Onset Date Comments Medical Records 11/19/2024 Encounter Details Date Type Department Care Team (Late st Contact Info) Description 11/19/2024 Telephone [facility] Cardiology [facility] [address] [place] [address] Deyvi Brantley MD [address] [place] [address] Medical Records Social History Tobacco Use Types Packs/Day Years Used Date Smoking Tobacco: Some Days Smokeless Tobacco: Never Alcohol Use Standard Drinks/Week Comments No 0 (1 standard drink = 0.6 oz pur e alcohol) Sex and Gender Information Value Date Recorded Sex Assigned at Not on file Legal Sex Male 6:20 PM EST Gender Identity Not on file Sexual Orientation Not on file documented as of this encounter Progress Notes * Leydi Doyle - 11/30/2024 1:19 PM EDT Faxed 05/2024 EKG and 2019 Echo report to [facility] Stay Att:Dinora at [phone] on 11/19/2024 documented in this encounter Plan of Treatment Upcoming Encounters Date Type Department Care Team (Late st Contact Info) Description 02/08/2025 9:10 AM EDT Office Visit [facility] Cardiology [facility] [address] [place] [address] Rashawn Francis NP [address] [place] [address] [address] [place] [address] documented as of this encounter Visit Diagnoses Not on filedocumented in this encounter Care Teams Commercial Production Editor Relationship Specialty Start Date End Date Deyvi Brantley MD [address] [place], [place] PCP - General 07/18/13 documented as of this encounter
--- OUTSIDE RECORDS SUMMARY | 2024-12-03 17:17 | XMS_ITS | Encounter Summary ---
Author Name [facility] [place] Organization [facility] [place] Address [address] [place] [id number] Care Team Providers Care Chute Greaser Name Role Phone MARICEL ELIAS Primary Care [...] SUPPLEMEN YAMILKA MEDEX 2 Apr 29, 2020 [id number] ALICE RUSSO PATIENT [place] SUPPLEMEN YAMILKA MEDEX 2 Apr 29, 2020 [id number] [phone] ALICE RUSSO PATIENT BCBS FORMERLY [facility] CE ORGANIZ [facility] SHARE ACTIV E Feb 27, 2012 [id number] ALICE RUSSO PATIENT EXPRESS SCRIPTS ([id number]) PRESCRIPT ION L4TA* Feb 27, 2012 L4TA [id number] ALICE RUSSO PATIENT [employer] SCRIPTS ([id number]) PRESCRIPT ION Feb 27, 2012 L4TA [id number] ALICE RUSSO PATIENT MEDICARE (WNR) MEDICARE (M) PART A Apr 29, 2020 PART A [id number] ALICE RUSSO PATIENT MEDICARE (WNR) MEDICARE (M) PART B Apr 29, 2020 PART B [id number] [phone] ALICE RUSSO PATIENT MEDICARE (WNR) MEDICARE (M) PART A Apr 29, 2020 PART A [id number] ALICE RUSSO PATIENT MEDICARE (WNR) MEDICARE (M) PART B Apr 29, 2020 PART B [id number] ALICE RUSSO PATIENT Selected Encounter This section includes the information on record at OR for the Encounter. Date/Time Encounter Type Encounter Description Reason Pro vider Source Apr 24, 2024 01:55 PM Outpatient Encounter ADMIN PAT ACTIVTIES (MASNONCT) IHE Encounter Template Text not used by [place] Plan of Treatment: Future Appointments (+ 6 months) and Future Tests (+/- 45 days) The Plan of Treatment section includes future care activities for the patient from all [place] treatmentfacilities. This section includes future appointments and future orders which are active, pending or scheduled. Future Appointments This section includes appointments that were scheduled to occur 6 months from the date of the Encounter, up to a maximum of 20 appointments. The data comes from all [place] treatment facilities. Appointment Date/Time Appointment Type Appointme nt Facility Name May 03, 2024 08:30 AM AMBULATORY - MEDICINE [facility] May 03, 2024 03:00 PM AMBULATORY - MEDICINE [facility] Jun 27, 2024 11:00 AM AMBULATORY - MEDICINE [place] [facility] [facility] Jul 02, 2024 10:30 AM AMBULATORY - MEDICINE [place] [facility] [facility] Jul 04, 2024 09:00 AM AMBULATORY - MEDICINE [place] [facility] Sep 06, 2024 03:00 PM [facility] Sep 20, 2024 08:30 AM [facility] Sep 26, 2024 09:30 AM AMBULATORY - MEDICINE [place] [facility] Oct 10, 2024 08:30 AM AMBULATORY - MEDICINE [place] [facility] Oct 23, 2024 03:00 PM AMBULATORY - NONE [place] [place] [facility] Oct 23, 2024 03:15 PM AMBULATORY - MEDICINE [place] [facility] [facility] Oct 23, 2024 03:30 PM [facility] Lab Results: +/- 30 days of the encounter This section includes the Chemistry and Hematology Lab Results on record with OR for the patient. Radiology Reports and Pathology Reports are provided separately, in subsequent sections. Lab Results This section contains the Chemistry/Hematology Results that were resulted 30 days before or 30 daysafter the date of the Encounter. Date/Time Source Result Type Result - Unit Interpretation Reference Range Comment Mar 28, 2024 10:32 AM [facility] HEMOGLOBIN A1C PANEL Specimen Type: BLOOD [...] January 05, 2024 12:35 PM Reporting Lab: [facility] [address] [facility] [address] Performing Lab: [address] [address] HEMOGLOBIN A1C 7.3 H 4.0-5.6 Mar 28, 2024 10:32 AM [facility] CALCIUM Specimen Type: SERUM No comment entered. Ordering Provider: COMPA ELLIS Report Released Date/Time: January 05, 2024 12:35 PM Reporting Lab: [facility] [address] [facility] [address] Performing Lab: [address] [address] CALCIUM 8.9 mg/dL 8.5-10.2 Mar 28, 2024 10:32 AM [facility] VITAMIN D (25-OH) Specimen Type: SERUM No comment entered. Ordering Provider: COMPA ELLIS Report Released Date/Time: January 05, 2024 12:35 PM Reporting Lab: [address] [address] Performing Lab: [address] [address] VITAMIN D (25-OH) 40 ng/mL 20-50 Mar 28, 2024 10:32 AM [facility] BASIC METABOLIC PANEL (non-fasting) Specimen Type: SERUM No comment entered. Ordering Provider: COMPA ELLIS Report Released Date/Time: January 05, 2024 12:35 PM Reporting Lab: [address] [address] Performing Lab: [address] [address] UREA NITROGEN 12 mg/dL 7-25 GLUCOSE 107 [...] and tobacco- related health factors from the [place] facility where the Encounter took place. Current Smoking Status This section includes the most current smoking, or tobacco-related health factor, from the [place] facility where the Encounter took place. Date/Time Current Smoking Status Comment Facil ity Sep 09, 2020 08:36 AM VA-TOBACCO USER EVERY DAY [facility] Tobacco Use History This section includes a history of the smoking, or tobacco-related health factors, that were collected on or before the date of the Encounter. The data comes from the [place] facility where the Encounter took place. Date/Time Smoking Status/Tobacco Use Comment F acility Sep 09, 2020 08:36 AM VA-TOBACCO USE 30 YEARS OR MORE [facility] Sep 09, 2020 08:36 AM VA-TOBACCO USE ADVICE [place] [facility] [place] [facility] Sep 09, 2020 08:36 AM VA-TOBACCO USE MANAGER FOREIGN NO [place] [facility] [facility] Sep 09, 2020 08:36 AM VA-TOBACCO USE MED NO [place] [facility] [facility] Sep 09, 2020 08:36 AM VA-TOBACCO USER EVERY DAY [facility] Encounter Notes: All [...] COSIGNER: URGENCY: STATUS: COMPLETED Date: Mar [facility] referred by [facility]acy Call Center for medication renewal: Non-controlled/maintenan ce medication Medications requested: [id number] GLUCOSE SENSOR FREESTYLE REYES 3 Defer to specialty clinic To be mailed . Please review and renew if appropriate. *This note was generated by [facility]/[place] [facility] Customer Care. If you have any questions or need assistance, do not contact this author. Please refer all questions to your local, on-site pharmacy departments. /samara/ Angely Sabillon CPhT Commercial Loan Collection Officer, [place]/Pharmacy Customer Care Signed: 04/24/2024 13:56 Receipt Acknowledged By: 04/27/2024 13:40 /samara/ COMPA ELLIS MD STAFF PHYSICIAN ANGELY SABILLON [facility]
--- OUTSIDE RECORDS SUMMARY | 2024-12-03 17:17 | XMS_ITS | Encounter Summary ---
Author Name [facility] [place] Address [address] [place] [address] Care Team Providers Care New Client Banking Services Clerk Name Role Phone BAINMARICEL Primary Care Provider Unavaila ble Insurance Providers: [...] SUPPLEMEN YAMILKA MEDEX 2 Apr 29, 2020 [id number] [phone] ALICE TERRY BS [place] SUPPLEMEN YAMILKA MEDEX 2 Apr 29, 2020 [id number] [phone] ALICE TERRY BS [facility] CE ORGANIZ [facility] SHARE ACTIV E Feb 27, 2012 [id number] [phone] ALICE TERRY PATIENT [employer] SCRIPTS ([id number]) PRESCRIPT ION L4TA* Feb 27, 2012 L4TA [id number] ALICE TERRY PATIENT [employer] S[employer] ([id number]) PRESCRIPT ION Feb 27, 2012 L4TA [id number] ALICE TERRY PATIENT MEDICARE (WNR) MEDICARE (M) PART A Apr 29, 2020 PART A [id number] ALICE TERRY PATIENT MEDICARE (WNR) MEDICARE (M) PART B Apr 29, 2020 PART B [id number] ALICE TERRY PATIENT MEDICARE (WNR) MEDICARE (M) PART A Apr 29, 2020 PART A [id number] ALICE TERRY PATIENT MEDICARE (WNR) MEDICARE (M) PART B Apr 29, 2020 PART B [id number] ALICE TERRY PATIENT Selected Encounter This section includes the information on record at [place] for the Encounter. 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 MIRNA GUERRA [place] Plan of Treatment: Future Appointments (+ 6 [...] 20, 2024 08:30 AM [facility] Sep 26, 2024 09:30 AM AMBULATORY - MEDICINE [place] [facility] Oct 10, 2024 08:30 AM AMBULATORY - MEDICINE [place] [facility] Oct 23, 2024 03:00 PM AMBULATORY - NONE [place] [facility] [place] [facility] Oct 23, 2024 03:15 PM AMBULATORY - MEDICINE [place] [facility] Oct 23, 2024 03:30 PM AMBULATORY - MEDICINE [place] [facility] Nov 22, 2024 08:00 AM AMBULATORY - MEDICINE [place] [facility] Nov 30, 2024 09:30 AM AMBULATORY - NONE [place] [facility] [place] [facility] Dec 24, 2024 08:00 AM AMBULATORY - MEDICINE [place] [facility] Dec 24, 2024 09:30 AM AMBULATORY - MEDICINE [place] [facility] January 07, 2025 09:00 AM AMBULATORY - MEDICINE [place] [facility] January 24, 2025 08:30 AM AMBULATORY - MEDICINE [facility] Lab Results: +/- 30 days [...] Range Comment Sep 20, 2024 08:58 AM [facility] HEMOGLOBIN A1C PANEL Specimen Type: BLOOD [...] Jul 02, 2024 11:06 AM Reporting [facility] [place] [facility] [address] [facility] [address] Performing Lab: [facility] [address] [facility] [address] HEMOGLOBIN A1C 6.5 H 4.0-5.6 Sep 20, 2024 08:58 AM [facility] [place] [facility] CALCIUM Specimen Type: SERUM No comment entered. Ordering Provider: COMPA ELLIS Report Released Date/Time: Jul 02, 2024 11:06 AM Reporting Lab: [facility] [address] [facility] [address] Performing Lab: [facility] [address] [facility] [address] CALCIUM 9.0 mg/dL 8.5-10.2 Sep 20, 2024 08:58 AM [facility] VITAMIN D (25-OH) Specimen Type: SERUM No comment entered. Ordering Provider: COMPA ELLIS Report Released Date/Time: Jul 02, 2024 11:06 AM Reporting Lab: [facility] [address] [facility] [address] Performing Lab: [facility] [address] [facility] [address] VITAMIN D (25-OH) 30 ng/mL 20-50 Sep 20, 2024 08:58 AM [facility] BASIC METABOLIC PANEL (non-fasting) Specimen Type: SERUM No comment entered. Ordering Provider: COMPA ELLIS Report Released Date/Time: Jul 02, 2024 11:06 AM Reporting Lab: [facility] [address] [facility] [address] Performing Lab: [facility] [address] [facility] [address] UREA NITROGEN 9 mg/dL 7-25 GLUCOSE 170 [...] Date/Time Current Smoking Status Comment Guerrero parr Aug 01, 2023 01:30 PM VA-TOBACCO USER EVERY DAY [place] Tobacco Use History This section includes a history of the smoking, or tobacco-related health factors, that were collected on or before the date of the Encounter. The data comes from the [place] facility where the Encounter took place. Date/Time Smoking Status/Tobacco Use Comment F acility Aug 01, 2023 01:30 PM VA-TOBACCO USE ADVICE [place] Aug 01, 2023 01:30 PM VA-TOBACCO USE DIAL BRUSHER NO [place] Aug 01, 2023 01:30 PM VA-TOBACCO USE MED NO [place] Aug 01, 2023 01:30 PM VA-TOBACCO USE WI 30 MIN OF WAKE UP [place] Aug 01, 2023 01:30 PM VA-TOBACCO USER EVERY DAY [place] Sep 15, 2021 10:00 AM VA-TOBACCO DOESNT USE WI 30 MIN WAKEUP [place] Sep 15, 2021 10:00 AM VA-TOBACCO USE 30 YEARS OR MORE [place] Sep 15, 2021 10:00 AM VA-TOBACCO USE ADVICE [place] Sep 15, 2021 10:00 AM VA-TOBACCO USE DIAL BRUSHER NO [place] Sep 15, 2021 10:00 AM VA-TOBACCO USE MED NO [place] Sep 15, 2021 10:00 AM VA-TOBACCO USER EVERY DAY [place] May 02, 2019 03:54 PM VA-TOBACCO DOESNT USE WI 30 MIN WAKEUP [place] May 02, 2019 03:54 PM VA-TOBACCO USE 30 YEARS OR MORE [place] May 02, 2019 03:54 PM VA-TOBACCO USE ADVICE [place] May 02, 2019 03:54 PM VA-TOBACCO USE DIAL BRUSHER NO [place] May 02, 2019 03:54 PM VA-TOBACCO USE MED NO [place] May 02, 2019 03:54 PM VA-TOBACCO USER SOME DAYS [place] January 25, 2018 11:23 AM QUIT TOBACCO USE IN PAST Y EAR QUIT 08/19/17 [place] Apr 04, 2017 10:16 AM CURRENT SMOKER 1.5 PACK A DAY [place] Apr 04, 2017 10:16 AM V1-PT DECLINES REF TO TOBACCO CESS PRGM [place] Apr 04, 2017 10:16 AM V1-PT DECLINES TOB ACCO CESSATION MEDS [place] Apr 04, 2017 10:16 AM V1-PT READY TO QUIT TOBACCO USE [place] Aug 13, 2016 01:21 PM CURRENT SMOKER [facility] Aug 13, 2016 01:21 PM V1-PT NOT INTEREST ED IN QUIT TOBACCO USE [place] Encounter Notes: All associated encounter notes This [...] Documentation:Aug Please see attached scanned document in [facility]. 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 Sensor: Sanya 3 /es/ MIRNA GUERRA RN,BSN, [facility] DIABETES SUBCONTRACT MANAGER, RN Signed: 09/06/2024 16:19 MIRNA GUERRAFIELD Sep 06, 2024 01:41 PM DIABETOLOGY EDUCAT ION NOTE: LOCAL TITLE: DIABETES EDU FOLLOW UP STANDARD TITLE: DIABETOLOGY EDUCATION NOTE DATE OF NOTE: SEP 06, 2024@13:41 ENTRY DATE: SEP 06, 2024@13:42:24 AUTHOR: MIRNA GUERRA EXP COSIGNER: URGENCY: STATUS: COMPLETED FOLLOW UP DIABETES EDUCATION VISIT Demographics: Patient Name: ALICE TERRY Age: 69 Sex: MALE Race: WHITE MARITAL STATUS - Introduction: identified with 2 identifiers: [X] Full Name [X] Date of [ ] Address [ ] [place] ID Card PATIENT PHONE - PHONE NUMBER [CELLULAR] - Is patient phone number correct, if not, enter below: 's phone number: ALICE TERRY [address] [place], [place], [address] MOST RECENT LABS: HEMOGLOBIN A1C TREND Collection [...] gastroparesis, fem-pop bypass surgery in July at [facility]. Diagnosed with diabetes in June 2016. Has Chronic/Acute pancreatitis, treated by Dr. Pan in [place] ([facility]) and Dr. Mendoza in [place]. Has sensor connected to his cell phone. Using the [place] sensor. 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 Abdominal aortic aneurysm (SNOMED CT [id number]) 18. Localized osteoarthrosis 19. Sciatica 20. Primary Care Physician 21. Cervical radiculopathy 22. Hypothyroidism ALLERGIES:METFORMIN Living arrangements: X Alone- has a Kinyarwanda Salazar (Josesito- 9 years old) Spouse Family [...] with peanut butter Dinner: 7 pm- turkey roll contour grinder, turkey Luke or food from [employer] [...] Review at next visit Comments: FEET/LEGS/SKIN: Seeing [facility] for legs. Seeing Dr. Quinn for podiatry. Has numbness and tingling in his toes. Has a pinch nerve in his leg, he also has vascular problems in his legs. Has US every 6 months. Comments: CARDIOVASCULAR/CEREBROVASCULAR: Comments: OTHER MEDICAL CONCERNS: Bowel obstruction on birthday in April of 2024. Went to [facility], had Fem-pop bypass surgery on Aug.02 at [facility]. Cystoscopy scheduled next week to check bladder cancer. 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 Prior diabetes education: [employer] [facility] [facility] [...] baseline: ASSESSMENT: Kindly referred by Dr. Ellis. reports he is currently seeing Endocrine every 3 months and was told he should see diabetes education as well. He is wearing a sensor that he is now connected with to his cell phone. He is also connected to the [place] [employer] account. Last A1C was 6.3% in May. [...] see if he wants to pursue it. is scheduled to see Dr. Ellis in [...] -Reviewed importance of download data from sensor children's institution attendant. -Reviewed blood sugar patterns with previous sensor [...] APPOINTMENTS: 09/06/2024 15:00 CWM/SO/DIABETES EDU1 09/20/2024 08:30 CWM/SO/PODIATRY/AKHIL 10/03/2024 14:00 NHM/ENDOCRINE 10/23/2024 15:30 NHM/OPTOMETRY/MEETA 12/24/2024 09:30 CWM/NO/PACT 7 DM type is : Diabetes Mellitus due to pancreatitis Length of Visit: 60 minutes /es/ MIRNA GUERRA, RN,BSN, [facility] DIABETES SUBCONTRACT MANAGER, RN Signed: 09/06/2024 16:11 Receipt Acknowledged By: 09/07/2024 18:56 /es/ COMPA ELLIS MD STAFF PHYSICIAN 09/07/2024 06:56 /es/ Maricel Bain DNP, TIRE DESIGN ENGINEER-BC, CNL Primary Care Nurse Practitioner MIRNA GUERRAFIELD
--- OUTSIDE RECORDS SUMMARY | 2024-12-03 17:17 | XMS_ITS | Encounter Summary ---
Author Name [facility] [place] Address [address] [place] [id number] Care Team Providers Care Mill Tender Washing Name Role Phone MARICEL ELIAS Primary Care [...] SUPPLEMEN YAMILKA MEDEX 2 Apr 29, 2020 [id number] ALICE RUSSO PATIENT [place]BS [place] MEDICARE SUPPLEMEN YAMILKA MEDEX 2 Apr 29, 2020 [id number] ALICE RUSSO PATIENT BCBS [facility] CE ORGANIZ [facility] SHARE ACTIV E Feb 27, 2012 [id number] [phone] ALICE RUSSO PATIENT [employer] S[employer] ([id number]) PRESCRIPT ION L4TA* Feb 27, 2012 [id number] [id number] ALICE RUSSO PATIENT [employer] S[employer] ([id number]) PRESCRIPT ION Feb 27, 2012 [id number] ALICE RUSSO PATIENT MEDICARE (WNR) MEDICARE (M) PART A Apr 29, 2020 PART A [id number] [phone] ALICE RUSSO PATIENT MEDICARE (WNR) MEDICARE (M) PART B Apr 29, 2020 PART B [id number] ALICE RUSSO PATIENT MEDICARE (WNR) MEDICARE (M) PART A Apr 29, 2020 PART A [id number] ALICE RSUSO PATIENT MEDICARE (WNR) MEDICARE (M) PART B Apr 29, 2020 PART B [id number] [phone] ALICE RUSSO PATIENT Selected Encounter This section includes the information on record at [place] for the Encounter. 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 [facility] [place] [facility] Oct 02, 2024 01:57 PM SECONDARY Disorder of bone density and structure, unspecified [facility] [place] [facility] Oct 02, 2024 01:57 PM SECONDARY Essential (primary) hypertension [facility] [place] [facility] Oct 02, 2024 01:57 PM SECONDARY Hyperlipidemia, unspecified [facility] [place] [facility] Oct 02, 2024 01:57 PM SECONDARY Hyperparathyroidis m, unspecified [facility] [place] [facility] Oct 02, 2024 01:57 PM SECONDARY Hypothyroidism, unspecified [facility] [place] [facility] Plan of Treatment: Future Appointments (+ [...] 03, 2024 08:30 AM [facility] May 03, 2024 03:00 PM [facility] Jun 27, 2024 11:00 AM AM[place]ULATORY [place]ICINE [place] [facility] Jul 02, 2024 10:30 AM AM[place]ULATORY [place]ICINE [place] [facility] Jul 04, 2024 09:00 AM AM[place]ULATORY [place]ICINE [place] [facility] Sep 06, 2024 03:00 PM [facility] Sep 20, 2024 08:30 AM AM[facility]ULATORY - MEDICINE [facility] Sep 26, 2024 09:30 AM [place]INE [place] [facility] Lab Results: +/- 30 days of [...] Range Comment Mar 28, 2024 10:32 AM [facility] CALCIUM Specimen Type: SERUM No comment entered. Ordering Provider: COMPA ELLIS Report Released Date/Time: January 05, 2024 12:35 PM Reporting Lab: [facility] [place] [facility] [address] [facility] [address] Performing Lab: [facility] [address] [facility] [address] CALCIUM 8.9 mg/dL 8.5-10.2 Mar 28, 2024 10:32 AM [facility] VITAMIN D (25-OH) Specimen Type: SERUM No comment entered. Ordering Provider: COMPA ELLIS Report Released Date/Time: January 05, 2024 12:35 PM Reporting Lab: [place] [address] [address] Performing Lab: [address] [address] VITAMIN D (25-OH) 40 ng/mL 20-50 Mar 28, 2024 10:32 AM [facility] HEMOGLOBIN A1C PANEL Specimen Type: BLOOD [...] January 05, 2024 12:35 PM Reporting Lab: [address] [address] Performing Lab: [address] [address] HEMOGLOBIN A1C 7.3 H 4.0-5.6 Mar 28, 2024 10:32 AM [facility] BASIC METABOLIC PANEL (non-fasting) Specimen Type: SERUM No comment entered. Ordering Provider: COMPA ELLIS Report Released Date/Time: January 05, 2024 12:35 PM Reporting Lab: [address] [address] Performing Lab: [address] [address] UREA NITROGEN 12 mg/dL 7-25 GLUCOSE 107 mg/dL H 65-100 SODIUM 139 mmol/L 135-145 POTASSIUM 3.9 mmol/L 3.5-5.0 CHLORIDE 107 mmol/L 100-110 CO2 24 meq/L 20-30 CREATININE, Serum 0.94 mg/dL 0.50-1.40 eGFR(CKD-EPI 2020) 88 mL/min >60 Vital Signs: All taken on the encounter date This section contains inpatient and outpatient Vital Signs collected on the date of the Encounter. Date/Time Temperature Pulse Blood Pressure Respiratory Rate SP02 Pain Height Weight Body Mass Index Source Apr 02, 2024 08:57 AM 98 80 120/74 18 97 5 183.2 28 [place] [facility] Social History: Smoking Status (Most current) [...] 2020 08:36 AM VA-TOBACCO USER EVERY DAY [place] [facility] Tobacco Use History This section includes a history of the smoking, or tobacco-related health factors, that were collected on or before the date of the Encounter. The data comes from the [place] facility where the Encounter took place. Date/Time Smoking Status/Tobacco Use Comment F acility Sep 09, 2020 08:36 AM VA-TOBACCO USE 30 YEARS OR MORE [place] [facility] Sep 09, 2020 08:36 AM VA-TOBACCO USE ADVICE [place] [facility] Sep 09, 2020 08:36 AM VA-TOBACCO USE INDUSTRIAL RADIOGRAPHER NO [place] [facility] Sep 09, 2020 08:36 AM VA-TOBACCO USE MED NO [place] [facility] Sep 09, 2020 08:36 AM VA-TOBACCO USER EVERY DAY [facility] Encounter Notes: All associated encounter notes [...] disease 17. Abdominal aortic aneurysm (SNOMED CT [id number]) 18. Localized osteoarthrosis 19. Sciatica 20. Primary [...] 2 3/4IN APPLY 1 DRESSING ACTIVE TOPICALLY [id number] Non-VA ASPIRIN 81MG EC TAB 81MG BY [...] three mos FTF Suicide Screen: C-SSRS Screening [place]-Suicide Severity Rating Scale (C-SSRS Screener) 1. Over [...] 04/20/2024 18:26 COMPA ELLIS [place] [place] [facility]
--- OUTSIDE RECORDS SUMMARY | 2024-12-03 17:17 | XMS_ITS | Encounter Summary ---
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 Name Role Phone MARICEL ELIAS Primary Care Provider Unavaila [facility] Insurance Providers: All historical and current [...] SUPPLEMEN YAMILKA MEDEX 2 Apr 29, 2020 [id number] ALICE RUSSO BCBS [place] MEDICARE SUPPLEMEN YAMILKA MEDEX 2 Apr 29, 2020 [id number] ALICE RUSSO BCBS [facility] CE ORGANIZ [facility] SHARE ACTIV E Feb 27, 2012 [id number] [phone] ALICE RUSSO PATIENT [employer] ([id number]) PRESCRIPT ION L4TA* Feb 27, 2012 L4TA [id number] ALICE RUSSO PATIENT [employer] ([id number]) PRESCRIPT ION Feb 27, 2012 L4TA [id number] ALICE RUSSO PATIENT MEDICARE (WNR) MEDICARE (M) PART A Apr 29, 2020 PART A [id number] [phone] ALICE RUSSO PATIENT MEDICARE (WNR) MEDICARE (M) PART B Apr 29, 2020 PART B [id number] ALICE RUSSO PATIENT MEDICARE (WNR) MEDICARE (M) PART A Apr 29, 2020 PART A [id number] [phone] ALICE RUSSO PATIENT MEDICARE (WNR) MEDICARE (M) PART B Apr 29, 2020 PART B [id number] [phone] ALICE RUSSO PATIENT Selected Encounter This section includes the information on record at [place] for the Encounter. Date/Time Encounter Type Encounter Description Reason Provider Source May 03, 2024 08:30 AM OFFICE O/P EST LOW 20 MIN PODIATRY ICD-10-CM L60.3 Nail dystrophy HARSHA LANDAVERDE [facility] Encounter Template Text not used by [place] Assessments - Encounter Diagnoses This section includes the primary and secondary diagnoses documented for the Encounter. Date/Time Primary/Secondary Diagnosis Diagnosis Name Provider Source May 22, 2024 11:58 AM PRIMARY Nail dystrophy HARSHA LANDAVERDE [place] May 22, 2024 11:58 AM SECONDARY Ingrowing nail HARSHA LANDAVERDE [place] May 22, 2024 11:58 AM SECONDARY Type [...] 27, 2024 11:00 AM AMBULATORY - [place]ICINE [place] [facility] Jul 02, 2024 10:30 AM AMBULATORY - MEDICINE [facility] [place] [place] [facility] Jul 04, 2024 09:00 AM AMBULATORY - [place]ICINE [place] [facility] Sep 06, 2024 03:00 PM AMBULATORY - MEDICINE [place] [place] Sep 20, 2024 08:30 AM AMBULATORY - MEDICINE [facility] [place] Sep 26, 2024 09:30 AM AMBULATORY [place]ICINE [place] [facility] Oct 10, 2024 08:30 AM AMBULATORY [place] MEDICINE [place] [facility] Oct 23, 2024 03:00 PM AMBULATORY - NONE [place] [facility] Oct 23, 2024 03:15 PM AMBULATORY - MEDICINE [place] [facility] Oct 23, 2024 03:30 PM AMBULATORY - MEDICINE [place] [facility] Social History: Smoking Status (Most current) [...] place. Date/Time Current Smoking Status Comment Facil [facility] Aug 01, 2023 01:30 PM VA-TOBACCO USER EVERY DAY [place] Tobacco Use History This section includes a history of the smoking, or tobacco-related health factors, that were collected on or before the date of the Encounter. The data comes from the [place] facility where the Encounter took place. 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 [place] Sep 15, 2021 10:00 AM VA-TOBACCO USE MED NO [place] Sep 15, 2021 10:00 AM VA-TOBACCO USER EVERY DAY [place] May 02, 2019 03:54 PM VA-TOBACCO DOESNT USE WI 30 MIN WAKEUP [place] May 02, 2019 03:54 PM VA-TOBACCO USE 30 YEARS OR MORE [place] May 02, 2019 03:54 PM VA-TOBACCO USE ADVICE [place] May 02, 2019 03:54 PM 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 [place] May 02, 2019 03:54 PM VA-TOBACCO USE MED NO [place] May 02, 2019 03:54 PM VA-TOBACCO USER SOME DAYS [place] January 25, 2018 11:23 AM QUIT TOBACCO USE IN PAST Y EAR QUIT 08/19/17 [place] Apr 04, 2017 10:16 AM CURRENT SMOKER 1.5 PACK A DAY [place] Apr 04, 2017 10:16 AM V1-PT DECLINES REF TO TOBACCO CESS PRGM [place] Apr 04, 2017 10:16 AM V1-PT DECLINES TOB ACCO CESSATION MEDS [place] Apr 04, 2017 10:16 AM V1-PT READY TO QUIT TOBACCO USE [place] Aug 13, 2016 01:21 PM CURRENT SMOKER SPRI [facility] Aug 13, 2016 01:21 PM V1-PT NOT INTEREST ED IN QUIT TOBACCO USE [place] Encounter Notes: All associated encounter notes This section contains the clinical notes associated to the Encounter. Date/Time Encounter Note(s) Provider Source May 30, 2024 08:58 AM LETTERS: LOCAL TITLE: PATIENT LETTER (B) STANDARD TITLE: LETTERS DATE OF NOTE: MAY 30, 2024@08:58 ENTRY DATE: MAY 30, 2024@08:58:13 AUTHOR: GILMA ZHANG EXP COSIGNER: URGENCY: STATUS: COMPLETED [facility] [address] [place] [address] [phone] * ALICE RUSSO [address] [facility] [address] Date: MAY 30, 2024 Dear [place]: This is a reminder letter that your SHOES are ready for pick at the [facility] [place] located at [address] [place] [address]. You may fern picker your shoes and or orthotics at your convenience any day, Tuesday through Tuesday between 8:30am and 3:30pm. You do not need an appointment. BUT WE DO REQUEST THAT YOU CALL BEFORE ARRIVING TO MAKE SURE THE PODIATRY HEALTH CAR SEAT MAKER IS AVAILABLE ON THAT DAY. Call [phone] for Gilma if you have any questions. We hope to see you soon, Sincerely, Office Staff for:ERIC MCINTOSH Care Provider Upcoming Appointments: 07/02/2024 10:30 NHM/ENDOCRINE 08/07/2024 10:00 CWM/NO/DIABETES EDU1 09/20/2024 08:30 CWM/SO/PODIATRY/AKHIL 10/23/2024 15:30 NHM/OPTOMETRY/GILMA LUTHER [place] May 03, 2024 07:41 AM PODIATRY NOTE: LOCAL TITLE: PODIATRY NOTE STANDARD TITLE: PODIATRY NOTE DATE OF NOTE: MAY 03, 2024@07:41 ENTRY DATE: MAY 03, 2024@07:41:32 AUTHOR: HARSHA LANDAVERDE EXP COSIGNER: URGENCY: STATUS: COMPLETED NOTE: HAS RECEIVED BOTH COVID VACCINE DOSES + BOOSTER AT [facility] *LAST SEEN FOR TREATMENT: 09/22/2023 S: Pt. [...] NEEDED. *NOTE: A1c= 7.3 (LAST TAKEN: 02/2024) DZV=547IU -meter-AM RISK=2 HEIGHT: 69 in [175.3 cm] (04/04/2017 13:40) WEIGHT: 186.8 lb [84.9 kg] (04/04/2017 13:40) VASCULAR: DP & PT pulses to be absent non-palpable bilateral. CFT >3 sec x 10. There is no edema and there are no varices superficial noted. 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 Protective sensation utilizing a [place] lOg monofilament is 10/10 bilateral. MUSCULOSKELETAL: Exam [...] this [facility] (local) and dispensed from another [place] or [facility]D facility (remote) as well as [...] Remote Allergy/ADR Data available for this patient [place] [facility] [facility] METFORMIN Med Recon [facility] ([facility] #[facility]) INCLUDED IN THIS LIST: Alphabetical list of active outpatient prescriptions dispensed from this [place] (local) and dispensed from another [place] or [facility] facility (remote) as well as inpatient orders [...] the patient into personal health records (i.e. [employer]) are NOT included in this list. 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 Rx# [id number] Last Released: 12/06/23 Qty/Days Supply: Rx Expiration Date: 06/08/24 Refills Remainin Indication: FOR DIABETES OUTPT INSULIN,GLARGINE-YFGN 100UNIT/ML PEN 3ML (Status = Active) INJECT 21 UNITS SUBCUTANEOUSLY EVERY MORNING Rx# [id number] Last Released: 01/09/24 Qty/Days Supply: Rx Expiration Date: 01/05/25 Refills Remainin Indication: FOR DIABETES OUTPT LEVOTHYROXINE NA (SYNTHROID) 175MCG TAB (Status = Discontinued) TAKE ONE TABLET BY MOUTH EVERY MORNING 30 MINUTES BEFORE BREAKFAST FOR THYROID FOR THYROID - TAKE ON AN EMPTY STOMACH WITH A FULL GLASS OF WATER Rx# [id number] Last Released: 11/30/23 Qty/Days Supply: Rx Expiration Date: 07/26/24 Refills Remainin Indication: FOR THYROID OUTPT LEVOTHYROXINE NA (SYNTHROID) 175MCG TAB (Status = Active) TAKE ONE TABLET BY MOUTH EVERY MORNING 30 MINUTES BEFORE BREAKFAST FOR THYROID - TAKE ON AN EMPTY STOMACH WITH A FULL GLASS OF WATER Rx# [id number] Last Released: 03/19/24 Qty/Days Supply: Rx Expiration Date: 03/17/25 Refills Remainin Indication: FOR THYROID OUTPT LIDOCAINE 5% OINT (Status = Active) APPLY LIBERAL AMOUNT TOPICALLY TWICE DAILY NERVE PAIN Rx# [id number] Last Released: 01/09/24 Qty/Days Supply: Rx Expiration [...] DAILY NEEDED FOR NAUSEA AND VOMITING Rx# [id number] Last Released: 04/10/24 Qty Supply: [id number] Rx [...] THREE TIMES DAILY NEEDED SENSOR FAILURE Rx# [id number] Last Released: 11/03/23 Qty/Days Supply: 100/30 Rx Expiration Date: 10/21/24 Refills Remainin Indication: SENSOR FAILURE OUTPT DEPEND UNDERWEAR,MAXIMUM,MEN SM/MED (Status = Active) USE 1 BRIEF DIRECTED ONCE DAILY NEEDED Rx# [id number] Last Released: 04/10/24 Qty/Days Supply: Rx Expiration Date: 08/01/24 Refills Remainin Indication: INCONTINENCE OUTPT GLUCOSE SENSOR FREESTYLE REYES 2 (Status = Discontinued) USE 1 SENSOR DIRECTED EVERY 14 DAYS Rx# [id number] Last Released: 12/13/23 Qty/Days Supply: 10/26 Rx Expiration Date: 12/08/24 Refills Remainin OUTPT GLUCOSE SENSOR FREESTYLE REYES 3 (Status = Discontinued) USE 1 SENSOR DIRECTED EVERY 14 DAYS Rx# [id number] Last Released: 03/08/24 Qty/Days Supply: 10/26 Rx Expiration Date: 01/06/25 Refills Remainin OUTPT GLUCOSE SENSOR FREESTYLE REYES 3 (Status = Active) USE 1 SENSOR DIRECTED EVERY 14 DAYS Rx# [id number] Last Released: Qty/Days Supply: 10/26 Rx Expiration Date: 04/28/25 Refills Remainin OUTPT NEEDLE,PEN 32G,4MM (Status = Active) USE 1 NEEDLE SUBCUTANEOUSLY FOUR TIMES A DAY FOR USE WITH PEN DEVICE Rx# [id number] Last Released: 07/28/23 Qty/Days Supply: Rx Expiration Date: 07/26/24 Refills Remainin OUTPT TRANSPARENT DRESSING 2 3/8IN X 2 3/4IN (Status = Active) APPLY 1 DRESSING TOPICALLY [id number] Rx# [id number] Last Released: 12/13/23 Qty/Days Supply: Rx Expiration Date: 12/13/24 Refills Remainin /es/ HARSHA LANDAVERDE DPM NASCAR DRIVER Signed: 05/03/2024 08:47 HARSHA LANDAVERDE [place]
--- OUTSIDE RECORDS SUMMARY | 2024-12-03 17:17 | XMS_ITS | Encounter Summary ---
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 Name Role Phone MARICEL ELIAS Primary [...] SUPPLEMEN YAMILKA MEDEX 2 Apr 29, 2020 [id number] [phone] ALICE RUSSO PATIENT [place] SUPPLEMEN YAMILKA MEDEX 2 Apr 29, 2020 [id number] ALICE RUSSO PATIENT BCBS [facility] SHARE ACTIV E Feb 27, 2012 [id number] ALICE RUSSO PATIENT EXPRESS SCRIPTS ([id number]) PRESCRIPT ION L4TA* Feb 27, 2012 L4TA [id number] ALICE RUSSO PATIENT [employer] SCRIPTS ([id number]) PRESCRIPT ION Feb 27, 2012 L4TA [id number] [phone] ALICE RUSSO PATIENT MEDICARE (WNR) MEDICARE (M) PART A Apr 29, 2020 PART A [id number] [phone] ALICE RUSSO PATIENT MEDICARE (WNR) MEDICARE (M) PART B Apr 29, 2020 PART B [id number] ALICE RUSSO PATIENT MEDICARE (WNR) MEDICARE (M) PART A Apr 29, 2020 PART A [id number] [phone] ALICE RUSSO PATIENT MEDICARE (WNR) MEDICARE (M) PART B Apr 29, 2020 PART B [id number] ALICE RUSSO PATIENT Selected Encounter This section includes the information on record at [place] for the Encounter. Date/Time Encounter Type Encounter Description Reason Pro vider Source Dec 13, 2023 11:51 AM Outpatient Encounter ADMIN PAT ACTIVTIES (MASNONCT) IHE Encounter Template Text not used by [place] Plan of Treatment: Future Appointments (+ 6 months) and Future Tests (+/- 45 days) The Plan of Treatment section includes future care activities for the patient from all [place] treatmentfacilities. This section includes future appointments and future orders which are active, pending or scheduled. Future Appointments This section includes appointments that were scheduled to occur 6 months from the date of the Encounter, up to a maximum of 20 appointments. The data comes from all [place] treatment facilities. Appointment Date/Time Appointment Type Appointme nt Facility Name January 05, 2024 10:30 AM AMBULATORY [place]ICINE [place] [facility] [place] [facility] January 25, 2024 11:00 AM AMBULATORY [place]ICINE [place] [facility] [place] [facility] Feb 02, 2024 12:30 PM AMBULATORY - NONE [place] [facility] [place] [facility] Apr 02, 2024 09:00 AM AMBULATORY [place]IC[place] [facility] [place] [facility] May 03, 2024 08:30 AM [facility]ORY - MEDICINE [facility] [place] May 03, 2024 03:00 PM AM[facility]ULATORY [facility] Lab Results: +/- 30 days of the encounter This section includes the Chemistry and Hematology Lab Results on record with [place] for the patient. Radiology Reports and Pathology Reports are provided separately, in subsequent sections. Lab Results This section contains the Chemistry/Hematology Results that were resulted 30 days before or 30 daysafter the date of the Encounter. Date/Time Source Result Type Result - Unit Interpretation Reference Range Comment January 04, 2024 01:53 PM [facility] THYROID T4 FREE(FT4) (WROX) Specimen Type: SERUM No comment entered. Ordering Provider: COMPA ELLIS Report Released Date/Time: January 03, 2024 08:02 AM Reporting Lab: [facility] [place] [facility] [address] [address] Performing Lab: [facility] [address] [address] THYROID T4 FREE(FT4) (WROX) 1.25 ng/dL 0.6-1.6 January 04, 2024 01:53 PM [facility] HEMOGLOBIN A1C PANEL Specimen Type: BLOOD [...] January 03, 2024 08:02 AM Reporting Lab: [facility] [address] [address] Performing Lab: [facility] [address] [address] HEMOGLOBIN A1C 7.4 H 4.0-5.6 January 04, 2024 01:53 PM [facility] MICROALBUMIN CREATININE RATIO PANEL Specimen Type: URINE No comment entered. Ordering Provider: COMPA ELLIS Report Released Date/Time: January 03, 2024 08:02 AM Reporting Lab: [facility] [address] [address] Performing Lab: [facility] [address] [address] MICROALBUMIN/C REATININE RATIO 15.4 mg/g 0-29.9 MICROALBUMIN,Q UANTITATIVE 0.8 mg/dL RR UNAVAIL CREATININE URINE 51.94 mg/dL January 04, 2024 01:53 PM [facility] [place] [facility] VITAMIN D (25-OH) Specimen Type: SERUM No comment entered. Ordering Provider: COMPA ELLIS Report Released Date/Time: January 03, 2024 08:02 AM Reporting Lab: [facility] [place] [facility] [address] [address] Performing Lab: [facility] [place] [facility] [address] [address] VITAMIN D (25-OH) 44 ng/mL 20-50 January 04, 2024 01:53 PM [facility] PTH INTACT Specimen Type: SERUM No comment entered. Ordering Provider: COMPA ELLIS Report Released Date/Time: January 03, 2024 08:02 AM Reporting Lab: [facility] [place] [address] [address] Performing Lab: [facility] [address] [address] PTH INTACT 72.1 pg/mL H 10-65 January 04, 2024 01:53 PM [facility] CALCIUM Specimen Type: SERUM No comment entered. Ordering Provider: COMPA ELLIS Report Released Date/Time: January 03, 2024 08:02 AM Reporting Lab: [facility] [address] [address] Performing Lab: [facility] [address] [address] CALCIUM 8.5 mg/dL 8.5-10.2 January 04, 2024 01:53 PM [facility] TSH Specimen Type: SERUM No comment entered. Ordering Provider: COMPA ELLIS Report Released Date/Time: January 03, 2024 08:02 AM Reporting Lab: [facility] [place] [facility] [address] [address] Performing Lab: [facility] [address] [address] TSH 2.11 u[IU]/mL 0.35-5.00 January 04, 2024 01:53 PM [facility] LIPID PANEL FASTING Specimen Type: SERUM No comment entered. Ordering Provider: COMPA ELLIS Report Released Date/Time: January 03, 2024 08:02 AM Reporting Lab: [facility] [address] [address] Performing Lab: [address] [address] CHOLESTEROL 106 mg/dL TRIGLYCERIDE 119 mg/dL 0-150 LDL calculated 37 mg/dL 0-129 CHOL/HDL 2.4 HDL CHOLESTEROL 45 mg/dL 40-60 January 04, 2024 01:53 PM [facility] BASIC METABOLIC PANEL (fasting) Specimen Type: SERUM No comment entered. Ordering Provider: COMPA ELLIS Report Released Date/Time: January 03, 2024 08:02 AM Reporting Lab: [facility] [address] [address] Performing Lab: [address] [address] UREA NITROGEN 18 mg/dL 7-25 GLUCOSE 197 [...] and tobacco- related health factors from the [place] facility where the Encounter took place. Current Smoking Status This section includes the most current smoking, or tobacco-related health factor, from the [place] facility where the Encounter took place. Date/Time Current Smoking Status Comment Facil ity Sep 09, 2020 08:36 AM VA-TOBACCO USER EVERY DAY [facility] Tobacco Use History This section includes a history of the smoking, or tobacco-related health factors, that were collected on or before the date of the Encounter. The data comes from the [place] facility where the Encounter took place. Date/Time Smoking Status/Tobacco Use Comment F acility Sep 09, 2020 08:36 AM VA-TOBACCO USE 30 YEARS OR MORE [place] [facility] [place] [facility] Sep 09, 2020 08:36 AM VA-TOBACCO USE ADVICE [place] [facility] [place] [facility] Sep 09, 2020 08:36 AM VA-TOBACCO USE WHEEL BUFFER NO [place] [facility] [place] [facility] Sep 09, 2020 08:36 AM VA-TOBACCO USE MED NO [place] [facility] [place] [facility] Sep 09, 2020 08:36 AM VA-TOBACCO USER EVERY DAY [facility] Encounter Notes: All associated encounter notes This [...] Drug: TRANSPARENT DRESSING 4IN X 4 3/4IN [facility]: [address]-65 Verb: APPLY (3) *Dosage: 1 DRESSING *Route: TOPICALLY *Schedule: Q14D (4)Pat Instructions: Indications: SIG: APPLY 1 DRESSING TOPICALLY EVERY 14 DAYS /odell CRONIN Signed: 12/13/2023 11:52 Receipt Acknowledged By: 12/16/2023 12:26 /samara/ COMPA ELLIS MD STAFF PHYSICIAN 12/13/2023 13:09 /odell FOX RN 12/13/2023 ADDENDUM STATUS: COMPLETED ordered 2 3/8 x 2 3/8 Tegaderm patches. /odell FOX RN Signed: 12/13/2023 13:10 VOLODYMYR CRONIN [facility]
--- OUTSIDE RECORDS SUMMARY | 2024-12-03 17:17 | XMS_ITS | Encounter Summary ---
Author Name [facility] [place] Address [address] [place] [address] Care Team Providers Care Art Supervisor Name Role Phone ELIASMARICEL Primary Care Provider [...] SUPPLEMEN YAMILKA MEDEX 2 Apr 29, 2020 [id number] ALICE RUSSO BS [place] MEDIC[place] SUPPLEMEN YAMILKA MEDEX 2 Apr 29, 2020 [id number] [phone] ALICE RUSSO BS [facility] CE ORGANIZ [facility] SHARE ACTIV E Feb 27, 2012 [id number] [phone] ALICE RUSSO PATIENT [employer] S[employer]IPTS ([id number]) PRESCRIPT ION L4TA* Feb 27, 2012 L4TA [id number] ALICE RUSSO PATIENT [employer] ([id number]) PRESCRIPT ION Feb 27, 2012 L4TA [id number] [phone] ALICE RUSSO PATIENT MEDICARE (WNR) MEDICARE (M) PART A Apr 29, 2020 PART A [id number] ALICE RUSSO PATIENT MEDICARE (WNR) MEDICARE (M) PART B Apr 29, 2020 PART B [id number] [phone] ALICE RUSSO PATIENT MEDICARE (WNR) MEDICARE (M) PART A Apr 29, 2020 PART A [id number] ALICE RUSSO PATIENT MEDICARE (WNR) MEDICARE (M) PART B Apr 29, 2020 PART B [id number] ALICE RUSSO PATIENT Selected Encounter This section includes the information on record at [place] for the Encounter. 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 MIRNA GUERRA [place] Plan of Treatment: Future Appointments (+ 6 [...] - MEDICINE [place] [facility] [place] [facility] Jul 02, 2024 10:30 AM AMBULATORY - MEDICINE [place] [facility] [place] [facility] Jul 04, 2024 09:00 AM AMBULATORY - MEDICINE [place] [facility] [place] [facility] Sep 06, 2024 03:00 PM [facility] Sep 20, 2024 08:30 AM [facility] MEDICINE [facility] Sep 26, 2024 09:30 AM AMBULATORY - MEDICINE [place] [facility] [place] [facility] Oct 10, 2024 08:30 AM AMBULATORY - MEDICINE [place] [facility] [place] [facility] Oct 23, 2024 03:00 PM AMBULATORY - NONE [place] [facility] [place] [facility] Oct 23, 2024 03:15 PM AMBULATORY - MEDICINE [place] [facility] [place] [facility] Oct 23, 2024 03:30 PM AMBULATORY - MEDICINE [place] [facility] [place] [facility] Social History: Smoking Status (Most current) [...] place. Date/Time Current Smoking Status Comment Facil [facility] Aug 01, 2023 01:30 PM VA-TOBACCO USER EVERY DAY [place] Tobacco Use History This section includes a history of the smoking, or tobacco-related health factors, that were collected on or before the date of the Encounter. The data comes from the [place] facility where the Encounter took place. Date/Time Smoking Status/Tobacco Use Comment F acility Aug 01, 2023 01:30 PM VA-TOBACCO USE ADVICE [place] Aug 01, 2023 01:30 PM VA-TOBACCO USE MANAGER LICENSING NO [place] Aug 01, 2023 01:30 PM VA-TOBACCO USE MED [facility] Aug 01, 2023 01:30 PM VA-TOBACCO USE [place] 30 MIN OF WAKE UP [place] Aug 01, 2023 01:30 PM VA-TOBACCO USER EVERY DAY [place] Sep 15, 2021 10:00 AM VA-TOBACCO DOESNT USE WI 30 MIN WAKEUP [place] Sep 15, 2021 10:00 AM VA-TOBACCO USE 30 YEARS OR MORE [place] Sep 15, 2021 10:00 AM VA-TOBACCO USE ADVICE [place] Sep 15, 2021 10:00 AM VA-TOBACCO USE MANAGER LICENSING NO [place] Sep 15, 2021 10:00 AM VA-TOBACCO USE MED [facility] Sep 15, 2021 10:00 AM VA-TOBACCO USER EVERY DAY [place] May 02, 2019 03:54 PM VA-TOBACCO DOESNT USE [place] 30 MIN WAKEUP [place] May 02, 2019 03:54 PM VA-TOBACCO USE 30 YEARS OR MORE [place] May 02, 2019 03:54 PM VA-TOBACCO USE ADVICE [place] May 02, 2019 03:54 PM VA-TOBACCO USE MANAGER LICENSING NO [place] May 02, 2019 03:54 PM VA-TOBACCO USE MED NO [place] May 02, 2019 03:54 PM VA-TOBACCO USER SOME DAYS [place] January 25, 2018 11:23 AM QUIT TOBACCO USE IN PAST Y EAR QUIT 08/19/17 [place] Apr 04, 2017 10:16 AM CURRENT SMOKER 1.5 PACK A DAY [place] Apr 04, 2017 10:16 AM V1-PT DECLINES REF TO TOBACCO CESS PRGM [place] Apr 04, 2017 10:16 AM V1-PT DECLINES TOB ACCO CESSATION MEDS [place] Apr 04, 2017 10:16 AM V1-PT READY TO QUIT TOBACCO USE [place] Aug 13, 2016 01:21 PM CURRENT SMOKER [facility] Aug 13, 2016 01:21 PM V1-PT NOT INTEREST ED IN QUIT TOBACCO USE [place] Encounter Notes: All associated encounter notes This section contains the clinical notes associated to the Encounter. Date/Time Encounter Note(s) Provider Source May 03, 2024 02:41 PM DIABETOLOGY EDUCAT ION NOTE: LOCAL TITLE: DIABETES EDU FOLLOW UP STANDARD TITLE: DIABETOLOGY EDUCATION NOTE DATE OF NOTE: MAY 03, 2024@14:41 ENTRY DATE: MAY 03, 2024@14:42:02 AUTHOR: MIRNA GUERRA COSIGNER: URGENCY: STATUS: COMPLETED DIABETES EDUCATION DOCUMENTATION DIABETES SELF-MANAGEMENT EDUCATION AND SUPPORT (DSMES) PROGRAM Intake Assessment MAY 03, 2024 __ INTRODUCTION identified with 2 identifiers: (X)Full Name (X)Date of () Other: Demographics: Patient Name: ALICE RUSSO :Apr Age: 68 Sex: MALE Race: WHITE MARITAL STATUS - No prior language recorded Contact info: [address], [place] [address] PATIENT PHONE - [phone] COMBAT SERVICE INDICATED: No PERIOD OF SERVICE - [place] ERA DS - Disabilities Eligibility: SC LESS THAN 50% VERIFIED Total S/C %: 40 LABYRINTHITIS 30% S/C TINNITUS 10% S/C IMPAIRED HEARING 0% S/C Primary NOK: YUNIEL RUSSO Relation: [address], [place] [address] [place] consented for any other persons present for visit: If yes, who and relationship to patient: REASON FOR EDUCATION VISIT TODAY: 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 Forgot to bring sensor supervisor ditching, using the Sanya 3 sensor. Not currently [...] disease 17. Abdominal aortic aneurysm (SNOMED CT [id number]) 18. Localized osteoarthrosis 19. Sciatica 20. Primary Care Physician 21. Cervical radiculopathy 22. 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 Reviewed the March sensor download just for [...] Tingling/Numbness: Hands Feet Denied concerns Comments: Sees night order selector for regular visits CARDIOVASCULAR/CEREBROVASCULAR: Review at next visit Pain/palpitations Angina pectoris Myocardial infarction Hypertension Hyperlipidemia TIA Stroke (CVA) Denied concerns Comments: OTHER MEDICAL CONCERNS: Prior diabetes education: SMART GOALS HEALTH GOAL #1: Bring sensor supervisor ditching next time for download. Continue to wear it to monitor blood sugars. In order to meet this goal, I will: HEALTH GOAL #2: In order to meet this goal, I will: Clinical or Quality of Life outcome baseline: ASSESSMENT: Kindly referred by Dr. Ellis. [place] reports he is currently seeing Endocrine every 3 months and was told he should see diabetes education as well. He is wearing a sensor, however, we were unable to review the sensor download. We reviewed sensor download from his previous visit and appears to be doing well with 62% in target range. 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 He reports he is taking 21 units at bedtime. [place]'s last A1C was 7.3% in February. He reports he was trying to prepare for an insulin pump before COVID started and then stopped when COVID started. We discussed if he was interested in pump therapy and he appears to be. Therefore, we can plan to discuss it more with him in the future at future diabetes education appointments. Encouraged to please bring sensor supervisor ditching for us to download at next visit. [...] -Reviewed importance of download data from sensor supervisor ditching. -Reviewed blood sugar patterns with previous sensor data. -Reviewed adjusting the Glargine insulin Instructions: -Please bring sensor to next appointment for download. -Drop dose of Glargine down to 19 or 20 units if having low glucose in the diesel engine mechanic hours every day. -Continue current diabetes medications: [...] Visit: 60 minutes /samara/ MIRNA GUERRA RN,BSN, [facility] DIABETES DERMATOLOGY NURSE, RN Signed: 05/03/2024 16:36 Receipt Acknowledged By: 05/03/2024 19:46 /es/ COMPA ELLIS MD STAFF PHYSICIAN 05/04/2024 05:24 /es/ ERIC MCINTOSH MD Primary Care Physician MIRNA GUERRAFIELD
--- OUTSIDE RECORDS SUMMARY | 2024-12-03 17:17 | XMS_ITS | Encounter Summary ---
Author Name [facility] [place] Address [address] [place] [id number] Care Team Providers Care Lumber Handler Name Role Phone MARICEL ELIAS Primary Care [...] SUPPLEMEN YAMILKA MEDEX 2 Apr 29, 2020 [id number] ALICE EARL PATIENT BCBS MD MEDICARE SUPPLEMEN YAMILKA MEDEX 2 Apr 29, 2020 [id number] [phone] ALICE EARL PATIENT BCBS [facility] ACTIV E Feb 27, 2012 [id number] ALICE EARL PATIENT [employer] ([id number]) PRESCRIPT ION L4TA* Feb 27, 2012 L4TA [id number] ALICE EARL PATIENT [employer] ([id number]) PRESCRIPT ION Feb 27, 2012 L4TA [id number] [phone] ALICE EARL PATIENT MEDICARE (WNR) MEDICARE (M) PART A Apr 29, 2020 PART A [id number] ALICE EARL PATIENT MEDICARE (WNR) MEDICARE (M) PART B Apr 29, 2020 PART B [id number] ALICE EARL PATIENT MEDICARE (WNR) MEDICARE (M) PART A Apr 29, 2020 PART A [id number] ALICE EARL PATIENT MEDICARE (WNR) MEDICARE (M) PART B Apr 29, 2020 PART B [id number] ALICE EARL PATIENT Selected Encounter This [...] to underlying condition w/o complications [facility]PA [facility] [place] [facility] Plan of Treatment: Future Appointments (+ [...] 04, 2024 09:00 AM [place]ORY [place] [facility] Sep 06, 2024 03:00 PM AMBULATORY - MEDICINE [facility] Sep 20, 2024 08:30 AM AMBULATORY - MEDICINE [facility] Sep 26, 2024 09:30 AM [place] [facility] Oct 10, 2024 08:30 AM AMBULATORY - MEDICINE [place] [facility] Oct 23, 2024 03:00 PM AMBULATORY - NONE [facility] [place] [facility] Oct 23, 2024 03:15 PM AMBULATORY - MEDICINE [place] [facility] [place] [facility] Oct 23, 2024 03:30 PM AMBULATORY - MEDICINE [place] [facility] [place] [facility] Nov 22, 2024 08:00 AM AMBULATORY - MEDICINE [place] [facility] [place] [facility] Nov 30, 2024 09:30 AM AMBULATORY - NONE [facility] [place] [facility] Dec 24, 2024 08:00 AM [place] [facility] Dec 24, 2024 09:30 AM [place] [facility] Active, Pending, and Scheduled Orders This [...] Order PT & INR (PROTIME) BLOOD (BLUE-PLASMA) [facility] Jun 27, 2024 12:00 AM Laboratory - Chemistry Order PSA BLOOD (SST-SERUM) [facility] Jun 27, 2024 12:00 AM Laboratory - Chemistry Order HEMOGLOBIN A1C PANEL BLOOD (LAV-BLOOD) [facility] Jun 27, 2024 12:00 AM Laboratory - Chemistry Order BASIC METABOLIC PANEL (non-fasting) BLOOD (SST-SERUM) [facility] Jun 27, 2024 12:00 AM Laboratory - Chemistry Order CBC BLOOD (LAV-BLOOD) [facility] CN[facility] Jun 27, 2024 12:00 AM Laboratory - Chemistry Order TSH BLOOD (SST-SERUM) [facility] Jul 02, 2024 12:00 AM Laboratory - Chemistry Order CALCIUM, 24HR PANEL 24 HR URINE [facility] Jul 02, 2024 12:00 AM Laboratory - Chemistry Order TSH BLOOD (SST-SERUM) [facility] Jul 02, 2024 12:00 AM Laboratory - Chemistry Order CALCIUM BLOOD (SST-SERUM) [facility] Lab Results: +/- 30 days of the encounter This section includes the Chemistry and Hematology Lab Results on record with [place] for the patient. Radiology Reports and Pathology Reports are provided separately, in subsequent sections. Lab Results This section contains the Chemistry/Hematology Results that were resulted 30 days before or 30 daysafter the date of the Encounter. Date/Time Source Result Type Result - Unit Interpretation Reference Range Comment Jun 27, 2024 11:33 AM [facility] THYROID T4 FREE(FT4) (WROX) Specimen Type: SERUM No comment entered. Ordering Provider: COMPA ELLIS Report Released Date/Time: Apr 20, 2024 06:27 PM Reporting Lab: [facility] [address] [facility] [address] Performing Lab: [facility] [address] [facility] [address] THYROID T4 FREE(FT4) (WROX) 1.55 ng/dL 0.6-1.6 Jun 27, 2024 11:33 AM [facility] CALCIUM Specimen Type: SERUM No comment entered. Ordering Provider: COMPA ELLIS Report Released Date/Time: Apr 20, 2024 06:27 PM Reporting Lab: [facility] [address] [facility] [address] Performing Lab: [facility] [address] CALCIUM 9.4 mg/dL 8.5-10.2 Jun 27, 2024 11:33 AM [facility] VITAMIN D (25-OH) Specimen Type: SERUM No comment entered. Ordering Provider: COMPA ELLIS Report Released Date/Time: Apr 20, 2024 06:27 PM Reporting Lab: [address] [place] [address] Performing Lab: [facility] [address] [facility] [address] VITAMIN D (25-OH) 37 ng/mL 20-50 Jun 27, 2024 11:33 AM [facility] PTH INTACT Specimen Type: SERUM No comment entered. Ordering Provider: COMPA ELLIS Report Released Date/Time: Apr 20, 2024 06:27 PM Reporting Lab: [facility] [address] [facility] [address] Performing Lab: [facility] [address] [facility] [address] PTH INTACT 62.8 pg/mL -65 Jun 25, 2024 10:14 AM [facility] HEMOGLOBIN A1C PANEL Specimen Type: [...] Jun 14, 2024 02:11 PM Reporting Lab: [facility] [address] [facility] [address] Performing Lab: [facility] [address] HEMOGLOBIN A1C 6.3 H 4.0-5.6 Jun 25, 2024 10:14 AM [facility] LIPID PANEL, NON FASTING Specimen Type: SERUM No comment entered. Ordering Provider: OSIRIS ELIAS AM Report Released Date/Time: Jun 14, 2024 02:11 PM Reporting Lab: [facility] [address] [facility] [address] Performing Lab: [address] [address] CHOLESTEROL 95 mg/dL TRIGLYCERIDE 91 mg/dL 0-150 LDL calculated 30 mg/dL 0-129 CHOL/HDL 2.0 HDL CHOLESTEROL 47 mg/dL 40-60 Jun 25, 2024 10:14 AM [facility] CBC Specimen Type: BLOOD No comment entered. Ordering Provider: OSIRIS ELIAS AM Report Released Date/Time: Jun 14, 2024 02:11 PM Reporting Lab: [facility] [address] [facility] [address] Performing Lab: [address] [address] WBC 6.96 10*3/uL 4.50-11.00 RBC 4.67 10*6/uL 4.23-5.66 HGB 15.9 g/dL 12.8-17 HCT 46.1 39.2-50.4 MCV 98.7 fL 82-99 MCHC 34.5 g/dL 30.8-35.1 PLT 148 10*3/uL 140-360 RDW-CV 13.0 12.0-16.0 MCH 34.0 pg H 26.2-32.6 Jun 25, 2024 10:14 AM [facility] BASIC METABOLIC PANEL (non-fasting) Specimen Type: SERUM No comment entered. Ordering Provider: OSIRIS ELIAS AM Report Released Date/Time: Jun 14, 2024 02:11 PM Reporting Lab: [facility] [address] [facility] [address] Performing Lab: [address] [address] UREA NITROGEN 9 mg/dL 7-25 GLUCOSE 166 mg/dL H 65-100 SODIUM 137 mmol/L 135-145 POTASSIUM 3.8 mmol/L 3.5-5.0 CHLORIDE 103 mmol/L 100-110 CO2 23 meq/L 20-30 CREATININE, Serum 1.00 mg/dL 0.50-1.40 eGFR(CKD-EPI 2020) 81 mL/min >60 Jun 25, 2024 10:14 AM [facility] LIVER FUNCTION Specimen Type: SERUM No comment entered. Ordering Provider: OSIRIS ELIAS AM Report Released Date/Time: Jun 14, 2024 02:11 PM Reporting Lab: [facility] [place] [facility] [address] [facility] [address] Performing Lab: [facility] [address] [facility] [address] PROTEIN,TOTAL 7.0 g/dL 6.0-8.3 ALBUMIN 4.0 g/dL 3.5-5.0 ALKALINE PHOSPHATASE 88 U/L 40-150 AST 14 U/L 5-34 ALT 17 U/L BILIRUBIN, TOTAL 0.7 mg/dL 0.2-1.2 Jun 25, 2024 10:14 AM [facility] PSA Specimen Type: SERUM No comment entered. Ordering Provider: OSIRIS ELIAS AM Report Released Date/Time: Jun 14, 2024 02:11 PM Reporting Lab: [facility] [address] [facility] [address] Performing Lab: [facility] [address] [address] PSA < 0.10 ng/mL 0.00-4.00 Jun 25, 2024 10:14 AM [facility] MICROALBUMIN CREATININE RATIO PANEL Specimen Type: URINE No comment entered. Ordering Provider: OSIRIS ELIAS AM Report Released Date/Time: Jun 14, 2024 02:11 PM Reporting Lab: [facility] [address] [facility] [address] Performing Lab: [facility] [address] MICROALBUMIN/C REATININE RATIO 18.0 mg/g 0-29.9 MICROALBUMIN,Q UANTITATIVE 1.3 mg/dL RR UNAVAIL CREATININE URINE 72.19 mg/dL Jun 25, 2024 10:14 AM [facility] TSH Specimen Type: SERUM No comment entered. Ordering Provider: OSIRIS ELIAS AM Report Released Date/Time: Jun 14, 2024 02:11 PM Reporting Lab: [facility] [address] [address] Performing Lab: [facility] [address] [address] TSH 3.53 u[IU]/mL 0.35-5.00 Jun 25, 2024 10:14 AM [facility] PT & INR (PROTIME) Specimen Type: PLASMA No comment entered. Ordering Provider: OSIRIS ELIAS AM Report Released Date/Time: Jun 14, 2024 02:11 PM Reporting Lab: [facility] [address] [facility] [address] Performing Lab: [facility] [address] [facility] [address] INR 2.3 PROTIME 25.5 s H 10.0-13.1 Vital Signs: All taken on the encounter date This section contains inpatient and outpatient Vital Signs collected on the date of the Encounter. Date/Time Temperature Pulse Blood Pressure Respiratory Rate SP02 Pain Height Weight Body Mass Index Source Jul 02, 2024 10:43 AM 98.2 74 118/74 16 99 10 173 26 [facility] Social History: Smoking Status (Most current) [...] AM VA-TOBACCO USE MICHELLE RY DAY CIGARETTES [facility] Tobacco Use History This section includes a history of the smoking, or tobacco-related health factors, that were collected on or before the date of the Encounter. The data comes from the [place] facility where the Encounter took place. Date/Time Smoking Status/Tobacco Use Comment F acility Jun 27, 2024 11:00 AM VA-TOBACCO SCREEN FOLLOW-UP [facility] Jun 27, 2024 11:00 AM VA-TOBACCO USE ADVICE [facility] Jun 27, 2024 11:00 AM VA-TOBACCO USE SASH MAKER NO [facility] Jun 27, 2024 11:00 AM VA-TOBACCO USE MICHELLE RY DAY CIGARETTES [facility] [place] [facility] Jun 27, 2024 11:00 AM VA-TOBACCO USE MED NO [facility] [place] [facility] Sep 09, 2020 08:36 AM VA-TOBACCO DOESNT USE WI 30 MIN WAKEUP [facility] [place] [facility] Sep 09, 2020 08:36 AM VA-TOBACCO USE 30 YEARS OR MORE [facility] [place] [facility] Sep 09, 2020 08:36 AM VA-TOBACCO USE ADVICE [facility] [place] [facility] Sep 09, 2020 08:36 AM VA-TOBACCO USE SASH MAKER NO [facility] [place] [facility] Sep 09, 2020 08:36 AM VA-TOBACCO USE MED NO [facility] [place] [facility] Sep 09, 2020 08:36 AM VA-TOBACCO USER EVERY DAY [facility] [place] [facility] Encounter Notes: All associated encounter notes This section contains the clinical notes associated to the Encounter. Date/Time Encounter Note(s) Provider Source Jul 02, 2024 11:10 AM PHYSICIAN NOTE: LOCAL TITLE: MD NOTE STANDARD TITLE: PHYSICIAN NOTE DATE OF NOTE: JUL 02, 2024@11:10 ENTRY DATE: JUL 02, 2024@11:10:12 AUTHOR: COMPA ELLIS COSIGNER: URGENCY: STATUS: COMPLETED Dx: DM due [...] ELLIS MD STAFF PHYSICIAN Signed: 07/02/2024 11:59 [facility]LLISCOMPA [facility]
--- OUTSIDE RECORDS SUMMARY | 2024-12-03 17:17 | XMS_ITS | Encounter Summary ---
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 Name Role Phone MARICEL ELIAS Primary Care Provider [facility] Insurance Providers: All historical and current Section [...] SUPPLEMEN YAMILKA MEDEX 2 Apr 29, 2020 [id number] [phone] ALICE RUSSO [place] SUPPLEMEN YAMILKA MEDEX 2 Apr 29, 2020 [id number] ALICE RUSSO BCBS [facility] CE [facility]GANIZ [facility] SHARE ACTIV E Feb 27, 2012 [id number] ALICE RUSSO PATIENT [employer] ([id number]) PRESCRIPT ION L4TA* Feb 27, 2012 [id number] ALICE RUSSO PATIENT [employer] ([id number]) PRESCRIPT ION Feb 27, 2012 [id number] ALICE RUSSO PATIENT MEDICARE (WNR) MEDICARE (M) PART A Apr 29, 2020 PART A [id number] ALICE RUSSO PATIENT MEDICARE (WNR) MEDICARE (M) PART B Apr 29, 2020 PART B [id number] [phone] ALICE RUSSO PATIENT MEDICARE (WNR) MEDICARE (M) PART A Apr 29, 2020 PART A [id number] ALICE RUSSO PATIENT MEDICARE (WNR) MEDICARE (M) PART B Apr 29, 2020 PART B [id number] ALICE RUSSO PATIENT Selected Encounter This [...] Primary/Secondary Diagnosis Diagnosis Name Provider Source Oct 31, 2024 04:04 PM PRIMARY Nail dystrophy HARSHA LANDAVERDE FERNANDO Oct 31, 2024 04:04 PM SECONDARY Ingrowing nail HARSHA LANDAVERDE Oct 31, 2024 04:04 PM SECONDARY Pain in left toe(s) HARSHA LANDAVERDE Oct 31, 2024 04:04 PM SECONDARY Pain in right toe(s) HARSHA LANDAVERDE Oct 31, 2024 04:04 PM SECONDARY Type 2 diabetes w diabetic peripheral [...] 26, 2024 09:30 AM AMBULATORY [facility] Oct 10, 2024 08:30 AM [facility]ATORY [facility]IC[facility] [place] [facility] Oct 23, 2024 03:00 PM AMBULATORY - NONE [facility] [place] [facility] Oct 23, 2024 03:15 PM AMBULATORY - MEDICINE [facility] [place] [facility] Oct 23, 2024 03:30 PM AMBULATORY - MEDICINE [facility] [place] [facility] Nov 22, 2024 08:00 AM AMBULATORY - MEDICINE [facility] [place] [facility] Nov 30, 2024 09:30 AM AMBULATORY - NONE [facility] [place] [facility] Dec 24, 2024 08:00 AM AMBULATORY - MEDICINE [facility] [place] [facility] Dec 24, 2024 09:30 AM AMBULATORY - MEDICINE [facility] [place] [facility] January 07, 2025 09:00 AM AMBULATORY - MEDICINE [place] [facility] [place] [facility] January 24, 2025 08:30 AM AMBULATORY - MEDICINE [facility] Active, Pending, and Scheduled [...] Order PT & INR (PROTIME) BLOOD (BLUE-PLASMA) [facility] [place] [facility] Oct 27, 2024 12:00 AM Laboratory - Chemi stry Order PTT BLOOD (BLUE-PLASMA) [facility] [place] [facility] Oct 27, 2024 12:00 AM Laboratory - Chemi stry Order CBC AND DIFF (AUTO) BLOOD (LAV-BLOOD) [facility] [place] [facility] Oct 27, 2024 09:25 AM Consult Order COMMUNITY CARE-INTERVENTIONAL RADIOLOGY Cons Auditor Medical Claims's Choice [facility] Lab Results: +/- 30 days [...] Range Comment Sep 20, 2024 08:58 AM [facility] HEMOGLOBIN A1C PANEL [...] Jul 02, 2024 11:06 AM Reporting Lab: [address] [address] Performing Lab: [address] [address] HEMOGLOBIN A1C 6.5 H 4.0-5.6 Sep 20, 2024 08:58 AM [facility] CALCIUM Specimen Type: SERUM No comment entered. Ordering Provider: COMPA ELLIS Report Released Date/Time: Jul 02, 2024 11:06 AM Reporting Lab: [facility] [address] [facility] [address] Performing Lab: [address] [address] CALCIUM 9.0 mg/dL 8.5-10.2 Sep 20, 2024 08:58 AM [facility] VITAMIN D (25-OH) Specimen Type: SERUM No comment entered. Ordering Provider: COMPA ELLIS Report Released Date/Time: Jul 02, 2024 11:06 AM Reporting Lab: [address] [address] Performing Lab: [address] [address] VITAMIN D (25-OH) 30 ng/mL 20-50 Sep 20, 2024 08:58 AM [facility] BASIC METABOLIC PANEL (non-fasting) Specimen Type: SERUM No comment entered. Ordering Provider: COMPA ELLIS Report Released Date/Time: Jul 02, 2024 11:06 AM Reporting Lab: [facility] [address] [facility] [address] Performing Lab: [facility] [address] [facility] [address] UREA NITROGEN 9 mg/dL 7-25 GLUCOSE 170 [...] place. Date/Time Current Smoking Status Comment Facil [facility] Aug 01, 2023 01:30 PM VA-TOBACCO USER EVERY DAY [place] Tobacco Use History This section includes a history of the smoking, or tobacco-related health factors, that were collected on or before the date of the Encounter. The data comes from the MD facility where the Encounter took place. Date/Time Smoking Status/Tobacco Use Comment F acility Aug 01, 2023 01:30 PM VA-TOBACCO USE ADVICE [place] Aug 01, 2023 01:30 PM VA-TOBACCO USE COLLEGE OR UNIVERSITY DEPARTMENT HEAD NO [place] Aug 01, 2023 01:30 PM VA-TOBACCO USE MED NO [place] Aug 01, 2023 01:30 PM VA-TOBACCO USE WI 30 MIN OF WAKE UP [place] Aug 01, 2023 01:30 PM VA-TOBACCO USER EVERY DAY [place] Sep 15, 2021 10:00 AM VA-TOBACCO DOESNT USE WI 30 MIN WAKEUP [place] Sep 15, 2021 10:00 AM VA-TOBACCO USE 30 YEARS OR MORE [place] Sep 15, 2021 10:00 AM VA-TOBACCO USE ADVICE [place] Sep 15, 2021 10:00 AM VA-TOBACCO USE COLLEGE OR UNIVERSITY DEPARTMENT HEAD NO [place] Sep 15, 2021 10:00 AM VA-TOBACCO USE MED NO [place] Sep 15, 2021 10:00 AM VA-TOBACCO USER EVERY DAY [place] May 02, 2019 03:54 PM VA-TOBACCO DOESNT USE WI 30 MIN WAKEUP [place] May 02, 2019 03:54 PM VA-TOBACCO USE 30 YEARS OR MORE [place] May 02, 2019 03:54 PM VA-TOBACCO USE ADVICE [place] May 02, 2019 03:54 PM VA-TOBACCO USE COLLEGE OR UNIVERSITY DEPARTMENT HEAD NO [place] May 02, 2019 03:54 PM VA-TOBACCO USE MED NO [place] May 02, 2019 03:54 PM VA-TOBACCO USER SOME DAYS [place] January 25, 2018 11:23 AM QUIT TOBACCO USE IN PAST Y EAR QUIT 08/19/17 [place] Apr 04, 2017 10:16 AM CURRENT SMOKER 1.5 PACK A DAY [place] Apr 04, 2017 10:16 AM V1-PT DECLINES REF TO TOBACCO CESS PRGM [place] Apr 04, 2017 10:16 AM V1-PT DECLINES TOB ACCO CESSATION MEDS [place] Apr 04, 2017 10:16 AM V1-PT READY TO QUIT TOBACCO USE [place] Aug 13, 2016 01:21 PM CURRENT SMOKER [facility] Aug 13, 2016 01:21 PM V1-PT NOT INTEREST ED IN QUIT TOBACCO USE [place] Encounter Notes: All associated encounter notes This [...] BOTH COVID VACCINE DOSES + BOOSTER AT [facility] *LAST SEEN FOR TREATMENT: 05/03/2024 S: Pt. is a 69 yo alert WDWN CAUC MALE who is [...] LE changes in status noted this date. [facility] Active problems - Computerized Problem List is the source for the following: *NOTE: REVIEWED ABOVE NOTING NO CHANGES SINCE PREVIOUS VISIT(type ii dm) *PLEASE SEE PROBLEM LIST TEMPLATE FOR COMPLETE LIST NEEDED. *NOTE: A1c= 6.3 (LAST TAKEN: 05/2024) YKC=292AC -meter-AM RISK=2 HEIGHT: 69 in [175.3 cm] (04/04/2017 13:40) WEIGHT: 186.8 lb [84.9 kg] (04/04/2017 13:40) VASCULAR: DP & PT pulses to be absent non-palpable bilateral. CFT >3 sec x 10. There is no edema and there are no varices superficial noted. seen at [facility] vascular and they noted severe pvd in feet and he was advised to keep a watch on feet as well NEUROLOGICAL: Exam reveals S/D, vibratory, light touch & proprioception sensations to be equal & symmetrical bilaterally & diminished for an individual of this age and present physical-medical status. Protective sensation utilizing a [place] lOg monofilament is 10/10 bilateral. MUSCULOSKELETAL: Exam [...] Remote Allergy/ADR Data available for this patient [facility] METFORMIN Med Recon [place] (Tool #1) INCLUDED IN THIS LIST: Alphabetical list of active outpatient prescriptions dispensed from this MD (local) and dispensed from another MD or [facility] facility (remote) as well as inpatient orders (local pending and active), local clinic medications, locally documented non-VA medications, and local prescriptions that have or been discontinued in the past 90 days. Non-VA Meds Last Documented On: Jul 02, 2024 NOTE The display of VA prescriptions dispensed from another MD or [facility] facility (remote) is limited to active outpatient prescription entries matched to National Drug File at the originating site and may not include some items such as investigational drugs, compounds, etc. NOT INCLUDED IN THIS LIST: Medications self-entered by the patient into personal health records (i.e. [email or web address]) are NOT included in this list. Non-VA medications documented outside this MD, remote inpatient orders (regardless of status) and [...] DAILY FOR TYPE 2 DIABETES MELLITUS Rx# [id number] Last Released: 07/04/24 Qty/Days Supply: Rx Expiration [...] CARB DINNER PLEASE HOLD UNTIL REQUESTED Rx# [id number] Last Released: 08/02/24 Qty/Days Supply: Rx Expiration Date: 05/04/25 Refills Remainin Indication: FOR DIABETES OUTPT INSULIN,GLARGINE-YFGN 100UNIT/ML PEN 3ML (Status = Active) INJECT 20 UNITS SUBCUTANEOUSLY EVERY MORNING Rx# [id number] Last Released: 08/06/24 Qty/Days Supply: Rx Expiration Date: 05/04/25 Refills Remainin Indication: FOR DIABETES OUTPT LEVOTHYROXINE NA (SYNTHROID) 175MCG TAB (Status = Discontinued) TAKE ONE TABLET BY MOUTH EVERY MORNING 30 MINUTES BEFORE BREAKFAST FOR THYROID - TAKE ON AN EMPTY STOMACH WITH A FULL GLASS OF WATER Rx# [id number] Last Released: 06/20/24 Qty/Days Supply: Rx Expiration Date: 03/17/25 Refills Remainin Indication: FOR THYROID OUTPT LEVOTHYROXINE NA (SYNTHROID) 175MCG TAB (Status = Active) TAKE ONE TABLET BY MOUTH EVERY MORNING 30 MINUTES BEFORE BREAKFAST FOR THYROID - TAKE ON AN EMPTY STOMACH WITH A FULL GLASS OF WATER Rx# [id number] Last Released: 09/01/24 Qty/Days Supply: Rx Expiration Date: 07/03/25 Refills Remainin Indication: FOR THYROID OUTPT LIDOCAINE 5% OINT (Status = Discontinued) APPLY LIBERAL AMOUNT TOPICALLY TWICE DAILY NERVE PAIN Rx# [id number] Last Released: 01/09/24 Qty/Days Supply: Rx Expiration Date: 01/05/25 Refills Remainin Indication: NERVE PAIN OUTPT LIDOCAINE 5% PATCH (Status = Active) APPLY 1 PATCH TOPICALLY ONCE DAILY FOR NERVE PAIN (LEAVE PATCH ON FOR 12 HOURS, THEN REMOVE PATCH) Rx# [id number] Last Released: 06/29/24 Qty/Days Supply: Rx Expiration [...] THREE TIMES DAILY NEEDED SENSOR FAILURE Rx# [id number] Last Released: 05/10/24 Qty/Days Supply: 100/30 Rx Expiration Date: 05/04/25 Refills Remainin Indication: SENSOR FAILURE OUTPT DEPEND UNDERWEAR,MAXIMUM,MEN SM/MED (Status = ) USE 1 BRIEF DIRECTED ONCE DAILY NEEDED Rx# [id number] Last Released: 04/10/24 Qty/Days Supply: 76 Rx Expiration Date: 08/01/24 Refills Remainin Indication: INCONTINENCE OUTPT GLUCOSE SENSOR FREESTYLE REYES 3 (Status = Discontinued) USE 1 SENSOR DIRECTED EVERY 14 DAYS Rx# [id number] Last Released: 06/21/24 Qty/Days Supply: 10/26 Rx Expiration Date: 04/28/25 Refills Remainin OUTPT GLUCOSE SENSOR FREESTYLE REYES 3 (Status = Active) USE 1 SENSOR DIRECTED EVERY 14 DAYS Rx# [id number] Last Released: 09/03/24 Qty/Days Supply: 10/26 Rx Expiration Date: 07/03/25 Refills Remainin OUTPT NEEDLE,PEN 32G,4MM (Status = ) USE 1 NEEDLE SUBCUTANEOUSLY FOUR TIMES A DAY FOR USE WITH PEN DEVICE Rx# [id number] Last Released: 05/03/24 Qty/Days Supply: Rx Expiration Date: 07/26/24 Refills Remainin OUTPT TRANSPARENT DRESSING 2 3/8IN X 2 3/4IN (Status = Discontinued) APPLY 1 DRESSING TOPICALLY [id number] Rx# [id number] Last Released: 12/13/23 Qty/Days Supply: Rx Expiration Date: 12/13/24 Refills Remainin OUTPT TRANSPARENT DRESSING 2 3/8IN X 2 3/4IN (Status = Discontinued) APPLY 1 DRESSING TOPICALLY [id number] Rx# [id number] Last Released: Qty/Days Supply: Rx Expiration Date: 07/03/25 Refills Remainin OUTPT TRANSPARENT DRESSING 2 3/8IN X 2 3/4IN (Status = Active) APPLY 1 DRESSING TOPICALLY EVERY 14 DAYS Rx# [id number] Last Released: 07/05/24 Qty/Days Supply: Rx Expiration Date: 07/04/25 Refills Remainin /es/ HARSHA LANDAVERDE DPM SCHOOL AIDE Signed: 09/20/2024 08:54 HARSHA LANDAVERDE
== END 2024-12-03 15:14 | disposition home or self-care (01) ==
LOC: HO.HGI 14:28
PROVIDERS: PCP Internal Medicine; Visit Provider Internal Medicine Gastroenterology
DX: K86.1 Other chronic pancreatitis (principal)
CPT/HCPCS: 99213

== ENCOUNTER → 2024-12-03 14:28 | Outpatient (BNVA) | payer MEDICARE, SELFPAY | PROVIDERS: PCP Internal Medicine; Visit Provider Internal Medicine Gastroenterology | DX: K86.1 Other chronic pancreatitis (principal) | CPT/HCPCS: 99212 ==

== ENCOUNTER 2025-06-24 08:51 | Outpatient (AMB) | payer MEDICARE, SELFPAY ==
--- NOTE | 2025-06-24 08:57 | MHC.OFFVIS ---
Vital Signs 06/24/25 09:02 Height 5 ft 8 in Weight 174 lb 2.643 oz BMI 26.5 BP 125/76 Blood Pressure Location Lt brachial Position Sitting Pulse 67 Intake Visit Reasons: f/u SIBO treatment Intake Note: Bruce presents in the office as a follow up. CC: states Xifaxin helped him a lot. States that he has nausea constantly. In a week he has a procedure to do an angiogram with a stent. Planer Off Bearer Required: No Allergies amoxicillin (From Augmentin) Allergy (Intermediate, Verified 06/24/25 09:03) Nausea and Vomiting clavulanic acid (From Augmentin) Allergy (Intermediate, Verified 06/24/25 09:03) Nausea and Vomiting HPI HPI f/u SIBO treatment: Details: -70year-old gentleman w/ PAd, CAD being seen for follow-up for chronic pancreatitis and ischemic colitis RECAP: sx going on for 4-5 yrs labs: ca-19-9 elevated, CEA-elevated, Pnac gene tests neg, igg4 was low, celiac panel neg, vit A low, Vit D normal, stool elastase 256 MRI 05/16- multpile panc cysts, no masses CTA: 08/2018- acute on chronic panc MRI: 10/2018- stable cysts of pancreas, possible galllstone, stable fullness adrenal gland US: 04/2019- F2-3 on elastography, distal aortic plaque referred for EUS to Dr Juarez- not felt to be necessary has been on panc supplements and zofran for symptoms smoker colonoscopy 2016 with polyps removed still has GB in place I referred to rheum due to osteoporosis, and he was commenced on fosamax LFT noted to be abnormal he was having ongoing abdo pain can be on right or left side nausea most days unsure on how to take panc supplements food was making the pain worse, mild reflux symptoms one flloating stool daily says has not had alcohol for 45 years, etiology of pancreatitis is uncertain he had another apptm at [facility] for another opinon regards EUS mother of biliary cancer was still smoking, 3-4 cigs/day he was prescribed narcs and he is hesitant to take, due to being told he may have SOD. He saw Dr Pan at [facility] and was treated with rifaximin due to bloating which helped he also changed to viokase 20 K units 2 caps with meals, he stopped rosibel pep, wasn;t convinced it was helping trila of reglan due to possible gastroparesis, he thinks it is helping him by giving him more energy he was doing well up till few days ago, had pain in right flank, like a knife into the back, mild nausea no diarrhea, stool is formed. he had hematuria and seeing urologist he tried motegrity and he felt it didn;t help CT chest [facility] 01/2020--heavy coronary calcification, chronic lung disease, pulm nodules, rec repeat 12 months he si following up with rheum for osteporosis he is following up with urology for bladder cancer went thru course of BCG and mitomycin He did have suspected ischemic colitis and was admitted to [facility] The Ischemic colitis, was prob 2/2 constipation, maybe low flow state (seeing vascular at [facility] and gets periodic dopplers), or from a-fib was advised to cont linalcotide but take daily or every other day, adding fiber supplement, and increase fluid intake he had clear cystoscopy for his bladder ca he had [address] for his parathyroid, which was negative GES 07/20-- normal colonoscopy 09/2022--- polyp removed--perineuroma, diverticulosis noted]] He had SBO 04/2024 managed conservatively, He then had left fem pop bypass 08/21 I ordered CTe to eval small bowel due to hx of SBO: severe chronic pancreatitis interstitial lung disease iliac art aneurysm stomach thickening EGD was done without any concerning finding , bx were neg INTERIM: He is going for angiogram and angioplasty for mesenteric ischemia he has chronic nausea, i sent him rifaxmin, and that helped a lot of gas issues no abdominal pain he is taking pancreas supps still smoking maybe half pack a week he had DEXA and has weak bones, getting IV bisphosphanates EXAM: GENERAL: The patient is well developed and nontoxic. VITAL SIGNS:see workflow HEENT: Nonicteric sclerae, PERRLA, EOMI. Oropharynx clear. Moist mucous membranes. Conjunctivae appear well perfused. No thyroid mass. CHEST: Chest wall is nontender. HEART: Regular rate and rhythm without murmurs. LUNGS: Clear to auscultation bilaterally. ABDOMEN: Soft, positive bowel sounds, nontender, no organomegaly.no flank tenderness SKIN: No rash, no excessive bruising, petechiae, or purpura. NEUROLOGIC: Cranial nerves II-XII intact without motor/sensory deficit. Psych: normal affect Assessments 1. chronic nausea, due to chronic pancreatitis and medications--controlled-- 2. chronic panc--stable, with occasional flare ups, 3. SBO at [facility] -?from adhesions-- also waiting for mesenteric angioplasty PLAN 1/ cont with creon 2/ cont with MV, vit D and C 3/ prn rifaixmin, probioticss PFSH Medical History Hx of supraventricular tachycardia Meniere's disease Hypothyroidism Hx of aortic aneurysm Hx of myocardial infarction CAD (coronary artery disease) Constipation Diabetes GERD (gastroesophageal reflux disease) Elevated cholesterol PVD (peripheral vascular disease) HTN (hypertension) Missing teeth, acquired Hx of bladder cancer Nausea History of ischemic colitis A-fib Osteoporosis Surgical History Stented coronary artery S/P TURP (transurethral resection of prostate) History of lumbar fusion Hx of fusion of cervical spine Hx of cystoscopy History of transurethral resection of bladder tumor (TURBT) S/P peripheral artery angioplasty with stent placement History of femoropopliteal bypass Hx of knee surgery H/O angioplasty H/O Spinal surgery History of colonoscopy Family History Father Hx of cancer of lung Mother History of pancreatic cancer Social History Household Members: Other Household Members Other:: lives alone Are you a primary home visit field care manager to a significant other at home: No Do you presently have visiting nurse or other home services: No Alcohol intake: current Alcohol intake frequency: does not drink Patient Tobacco Use Status: Current everyday Tobacco user Tobacco use type: Cigarette Cigarettes Per Day: 10 Substance Use Type: Marijuana Physical Exam Vital Signs: Last Vital Signs Pulse 67 06/24/25 09:02 BP 125/76 06/24/25 09:02 BMI result Body Mass Index 26.5 Assessment & Plan Assessment & Plan (1) Chronic pancreatitis: Code(s): K86.1 - Other chronic pancreatitis Category: Medical Plan: see above Coding Level of Care Code Est Pt Level 3 (21656) Diagnoses Chronic pancreatitis K86.1
[2025-06-24 09:02] VITALS: BP 125/76; PULSE 67; BMI 26.5
--- OUTSIDE RECORDS SUMMARY | 2025-06-24 09:30 | XMS_ITS | Continuity of Care Document ---
Author Organization [facility] [address] [facility] [address] [place] [address] Phone [phone] Care Team Providers Care Carpenter Inspector Name Role Phone Deyvi Brantley M.D. Care Team Information Pot Washer [phone] Problems Active Problems Provider Date Type 2 diabetes mellitus Bridger Reece M.D. Onset: 03/23/2022 Hypothyroidism Bridger Reece M.D. Onset: 0 03/23/2022 Carcinoma of bladder Bridger Reece M.D. Ons et: 11/02/2022 Peripheral vascular disease Huong Murrell Onset: 11/02/2022 Social History Type Date Description Comments Sex Male Sex Unknown ETOH Use Denies alcohol use Tobacco Use Start: Unknown Patient is a current smoke r, smokes every day Allergies and adverse reactions Active Allergies Criticality Reaction Severity Comments Date Lexapro Unable to assess criticality 03/24/2022 Augmentin Unable to assess criticality N&V 03/24/2022 Medications Active Medications SIG Qnty Indications Order ing Provider Date Bjbfikk5ww Tablets 1 tab by mouth every day Bridger Reece M.D. 07/26/2022 Cardizem TG560rb Caps ER 24HR 1 tab by mouth every day Bridger Reece M.D. 07/26/2022 Rbsspyssg63jc Tablets 1 by mouth every day Bridger Reece M.D. 07/26/2022 Metoprolol Bowhwsbx833vx Tablets 1 tab by mouth twice a day Bridger Reece M.D. 03/24/2022 Qvdqmvbgom02ok Tablets Take 1 Tablet By Mouth AT Bedtime Richard, Tuyyab A, MD Atorvastatin Gpvotjd67ox Tablets 1 tab by mouth every evening 90tabs Deyvi Brantley M.D. Warfarin Qmdgia9ef Tablets as directed Deyvi Brantley M.D. Levothyroxine Fhcmyi381xyk Tablets 1 tab by mouth every morning Deyvi Brantley M.D. Tamsulosin HCL0.4mg Capsules 1 tab by mouth every night Unknown Novolog Dxzbjba158Peaw/ML Solution Pen-Inject Inject 6 Units Under The Skin Before Meals Bridger Reece M.D. BD Pen Needle/Scarlet 2ND Gen/32G X 5/32 32G X 4 mm Misc Use 1 Needle Four Times Daily Bridger Reece M.D. Basaglar Harcitm689Chhj/ML Solution Pen-Inject Inject 25 Units Subcutaneously Once A Day Bridger Reece M.D. [id number] it Tablets 5 tabs ac and 2 [...]
--- OUTSIDE RECORDS SUMMARY | 2025-06-24 09:30 | XMS_ITS | Clinical Summary ---
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 9 Active Viokace 35230-53405 units tablet Take by mouth. Ac tive tamsulosin (Flomax) 0.4 MG 24 hr capsule Take by mouth. 1 Active warfarin (Coumadin) 5 MG tablet 3 Active Sodium Fluoride (PreviDent 5000 Booster Plus) 1.1 % paste [place] teeth for 2 minutes, morning and night. [...] ERIC MCINTOSH Comment: Dr Strong/Cardiology Bladder cancer ([facility]/HCC) 01/24/2024 Overview (01/24/2024): Nov 11, 2020 Entered [...] Fusion C3 - - C5; Chronic pancreatitis (CMS/HCC) 01/24/2024 Overview (01/24/2024): Mar 15, 2019 Entered By: ERIC MCINTOSH Comment: Vibhaed 08/2018 - Dr Ward 2018 Entered By: ERIC MCINTOSH Comment: Scheduled to see Chronic Pancreatitis specialistend of 02/2019 at [facility] in [place] Other chronic pancreatitis 01/24/2024 Class 1 obesity [...] Comment: Primarily Knees, Low Back; R Knee [facility] 2015 Entered By: JUAN MARISCAL Comment: has seen Private Ortho; Received Inj's Knees Low bone density 01/24/2024 Meniere's disease, unspecified ear 01/24/2024 Other peripheral vertigo, unspecified ear 2023 Meniere's disease 01/24/2024 Overview (01/24/2024): Oct 14, 2016 Entered By: JUAN MARISCAL Comment: Ativan Abates Acute Sx; is Severe (gets Drop Attacks )Oct 14, 2016 Entered By: JUAN MARISCAL Comment: Saw ENT, [facility]; also do PT at [place] in NOV 12 Mixed hyperlipidemia 01/24/2024 Tinea unguium 01/24/2024 Onychomycosis of toenail 01/24/2024 Other disorders of optic ner ve, not elsewhere classified, bilateral 01/24/2024 Overweight 01/24/2024 Paroxysmal atrial fibrillation ([facility]/HCC) 024 Essential (primary) hypertension 01/24/2024 Hypertension 01/24/2024 Sciatica [...] angiopathy with gangrene 01/24/2024 Carcinoma of bladder ([facility]/HCC) 11/02/2022 Peripheral vascular disease 11/02/2022 Overview (01/24/2024): [...] 2 diabetes mellitus 03/23/2022 Malignant neoplasm of overla pping sites of bladder (CMS/HCC) 11/17/2020 Vertigo 01/21/2015 Overview (01/24/2024): Vertigo Social [...] 1955 Sigmoidoscopy 1955 Diabetes: Foot Exam 1965 Alcohol/Substance Use Screening 1967 Hepatitis C Screening 1973 Diabetes: Urine Protein Screening 1974 RSV Patients and Patients Aged 60 years or older (1 - Risk 60-74 years 1-dose series) 2015 Dental Oral Exam 07/27/2024 01/24/2024, 11/28/2018 Dental X-Ray: Bitewings 01/24/2025 01/24/20 24, 06/03/2022, 11/28/2018 Tobacco Screening 04/23/2025 04/23/2024 COVID-19 Vaccine ( season) 2025 08/31/2022, 01/13/2022, 04/16/2021, Additional history exists Influenza Vaccine (#1) 2025 , 06/08/2023, 07/05/2022, Additional history exists Dental X-Ray: Full Mouth 06/04/2025 06/03/2022, 09/2018 Eye Exam 10/13/2025 10/13/2023 DTaP/Tdap/Td Vaccines (2 - Td or Tdap) 04/04/2027 04/04/2017 Zoster Vaccines Completed 06/09/2018, 08/2017, 11/27/2017 Pneumococcal Vaccine: 50+ Years Completed 09/26/2024, 05/14/2020 [...] Relevant to Health Maintenance Insurance DENTAL - [employer]
--- OUTSIDE RECORDS SUMMARY | 2025-06-24 09:30 | XMS_ITS | Clinical Summary ---
Author Organization [facility] Address [address] [place] [address] Phone Care Team Providers Care Drop Wire Hanger Name Role Phone Deyvi Brantley MD Primary Care Provider [phone] Allergies Active Allergy Reactions Criticality Noted Date Comments Amoxicillin 07/28/2022 Amoxicillin-Pot Clavulanate 01/23/20 21 Clavulanic Acid 07/28/2022 Escitalopram Oxalate Other 03/19/2021 Metformin Diarrhea 05/28/2019 Medications metoprolol tartrate (LOPRESSOR) 50 mg tablet TAKE 1 TABLET BY MOUTH TWICE DAILY 180 tablet 3 4 Active aspirin 81 mg EC tablet Take 81 mg by mouth daily. Active cholecalciferol (VITAMIN D-3) 25 mcg (1,000 unit) capsule Take 1 Capsule by mouth daily. Active docusate sodium (COLACE) 100 mg capsule [...] unit/mL injection Inject under the skin. Active lisinopriL (PRINIVIL,ZESTR IL) 5 mg tablet TAKE 1 TABLET BY MOUTH DAILY 90 tablet 1 5 Active atorvastatin (LIPITOR) 40 mg tablet TAKE 1 TABLET BY MOUTH DAILY 90 tablet 1 5 Active dilTIAZem CD (CARDIZEM CD) 180 mg 24 hr capsule Take 1 capsule (180 mg total) by mouth 1 (one) time each day. take 1 capsule by mouth daily 90 capsule 2 5 Active dilTIAZem CD (CARDIZEM CD) 180 mg 24 hr capsule take 1 capsule by mouth daily 5 06/10/20 25 Discontinu ed(Reorder ) Active Problems Problem Noted Date Diagnosed Date PVD (peripheral vascular dis ease) with claudication (CMS/HCC V24) 02/08/2025 Overview (02/08/2025): peripheral vascular disease on Coumadin aortic aneurysm status post multiple stents to the lower extremities mesenteric artery occlusion followed by the [facility] vascular surgery service Bilateral fem pop bypasses Assessment & Plan (02/08/2025 9:56 AM EDT): Claudication stable/improved with good functional capacity following recent surgery. Continue with aspirin, atorvastatin, diltiazem, empagliflozin, hydralazine, lisinopril and warfarin. We discussed risk reduction through lifestyle choices including healthy diet, routine exercise and weight management. Bladder cancer (CMS/HCC V24, [facility] V28) 2024 Limping 02/08/2025 DM2 (diabetes mellitus, type 2) ([facility] V24, [facility] V28) 10/23/2024 Typical atrial flutter ([facility] V24, [facility] V28 ) 10/23/2024 Ischemic colitis ([facility] V24) 10/23/2024 H/O arterial bypass of lower limb 08/17/2024 Chronic pancreatitis ([facility] V24, [facility] V28) 01/24/2024 Overview (10/23/2024): Mar 15, 2019 Entered By: ERIC MCINTOSH Comment: Davon 08/2018 - Dr Ward 2018 Entered By: ERIC MCINTOSH Comment: Scheduled to see Chronic Pancreatitis specialistend of 02/2019 at [facility] in [place] Hyperparathyroidism ([facility] V24) 01/24/2024 Ingrowing nail 01/24/2024 Limping 01/24/2024 Localized osteoarthrosis 01/24/2024 Overview (02/08/2025): Aug 13, 2016 Entered By: JUAN MARISCAL Comment: Primarily Knees, Low Back; R Knee [facility] 2015 Entered By: JUAN MARISCAL Comment: has seen Private Ortho; Received Inj's Knees Low bone density 01/24/2024 Meniere's disease 01/24/2024 Overview (02/08/2025): Oct 14, 2016 Entered By: JUAN MARISCAL Comment: Ativan Abates Acute Sx; is Severe (gets Drop Attacks )Oct 14, 2016 Entered By: JUAN MARISCAL Comment: Saw ENT, [facility]; also do PT at [place] in NOV 12 Other peripheral vertigo, unspecified ear 2023 Mixed hyperlipidemia 01/24/2024 Assessment & Plan (02/08/2025 9:56 AM EDT): June 2023 - LDL 32. Continue with atorvastatin. Onychomycosis of toenail 01/24/2024 Tinea unguium 01/24/2024 Other disorders of optic ner ve, not elsewhere classified, bilateral 01/24/2024 Other specified diabetes idris litus with diabetic peripheral angiopathy with gangrene ([facility] V24, [facility] V28) 01/24/2024 Overweight 01/24/2024 Sciatica 01/24/2024 Overview (02/08/2025): Apr 04, 2017 Entered By: ERIC MCINTOSH Comment: Radicular Sx LLE- Fusion L5- S1 2004 Sensorineural hearing loss, bilateral 01/24/2024 Tobacco use disorder, continuous 01/24/2024 Dizziness and giddiness 01/24/2024 Carcinoma of bladder ([facility] V24, [facility] V28) 11/02/2022 Overview (02/08/2025): Nov 11, 2020 Entered By: ERIC MCINTOSH Comment: 11/05/20 - Dr. 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 Asymptomatic. CHADSVASc - 6. Continue with diltiazem and warfarin. Orders: ECG 12 lead Anterior wall myocardial inf arction ([facility] V24, [facility] V28) 06/13/2021 Type 2 diabetes mellitus wit hout complications ([facility] V24, [facility] V28) 01/22/2021 Coronary artery disease invo lving [place] coronary artery of [place] heart without angina pectoris 11/20/2020 Overview (02/08/2025): Anterior myocardial infarction with stenting of LAD Assessment & Plan (02/08/2025 9:56 AM EDT): No anginal symptoms. Continue with aspirin, atorvastatin, diltiazem, empagliflozin, hydralazine, lisinopril and warfarin. We discussed risk reduction through lifestyle choices including healthy diet, routine exercise and weight management. Malignant neoplasm of overla pping sites of bladder ([facility] V24, [facility] V28) 11/17/2020 Vertigo 01/21/2015 Overview (02/08/2025): Vertigo Resolved Problems Problem Noted Date Diagnosed Date Resolved Date Abdominal aortic aneurysm (AAA) ([facility] V24) 01/24/20 24 10/23/2024 Overview (10/23/2024): Apr 04, 2017 Entered [...] 10/23/2024 Diabetes mellitus associated with pancreatic disease ([facility] V24, [facility] V28) 01/24/202410/23 Diabetes mellitus due to und erlying condition without complications ([facility] V24, [facility] V28) 01/24/2024 10/23/2024 Essential (primary) hypertension 01/24/2024 10/23/2024 Food insecurity 01/24/2024 10/23/2024 Chronic atrial fibrillation ([facility] V24, [facility] V28) 01/22/2021 10/23/2024 Encounters Date Type Department Care Team Description 06/10/2025 Telephone [facility] [address] [place] [address] Juan Strong MD from Last 3 Months Surgical History Surgery Date Site/Laterality Comments OTHER SURGICAL HISTORY PROCEDURE: HISTORY OTHER; COMMENT: Bladder tumor resection Medical History Medical History Date Comments Acute pancreatitis DX:Acute panc reatitis Atherosclerotic heart disease DX :Atherosclerotic heart disease Meniere's disease DX:Meniere's d isease Dyslipidemia DX:Dyslipidemia SVT (supraventricular tachyc ardia) ([facility] V24) DX:SVT (supraventricular tac hycardia) ([facility]) Hypothyroidism DX:Hypothyroidis m Chronic back pain DX:Chronic tim k pain Cervical disc disease DX:Cervica l disc disease Gouty arthritis of great toe DX: Gouty arthritis of great toe Bladder cancer ([facility] V24, [facility] V28) DX:Bladder cancer ([facility]) Claudication ([facility] V24) DX:Cl audication ([facility]) Social History Tobacco Use Types [...] Sign Reading Time Taken Comments Blood Pressure 100/62 02/08/2025 8:46 AM EDT Pulse 52 02/08/2025 8:46 AM EDT Temperature - - Respiratory Rate - - Oxygen Saturation 100% 02/08/2025 8:46 AM EDT Inhaled Oxygen Concentration - - Weight 78.9 kg (173 lb 14.4 oz) 02/08/2025 8:46 AM EDT Height 172.7 cm (5' 8 ) 02/08/2025 8:46 AM EDT Body Mass Index 26.44 02/08/2025 8:46 AM EDT Plan of Treatment Upcoming Encounters Date Type Department Care Team (Late st Contact Info) Description 08/06/2025 9:50 AM EST Office Visit [facility] [address] [facility] [address] [place] [address] Juan Strong MD [address] [place] [address],[address] [place] [address] (work) Health Maintenance Due Date Last Done Comments Colorectal Cancer Screening: Colonoscopy 1955 Diabetes: Annual GFR (Glomerular Filtration Rate) 1955 Diabetes: Annual Foot Exam 1965 Diabetes: Annual Retina Eye Exam 1965 RSV Immunization Adult Patients (1 - Risk 50-74 years 1-dose series) 2005 Cholesterol Screening (Lipid Panel) 08/07/2022 Falls Risk Assessment 08/07/2022 Hepatitis C Screening 08/07/2022 Medicare Annual Wellness Visit 08/07/2022 Social Influencers of Health Screening 08/07/2022 Hypertension/CHF/CAD Annual BMP Blood Test 08/08/2022 Diabetes: Annual Urine Albumin-Creatinine Ratio (uACR) 08/11/2022 Diabetes: Blood Sugar Control Test (HGBA1C) 08/11/2022 Depression Screening 08/29/2024 COVID-19 Vaccine ( season) 2025 08/31/2022, 01/13/2022, 04/16/2021, Additional history exists Influenza Vaccine (#1) 2025 , 05/11/2024, 06/08/2023, Additional history exists DTaP,Tdap,and Td Vaccines (2 - Td or [...] 20 months Aged Out No longer eligible based on patient's age to complete this topic Varicella Vaccines Aged Out No longer eligible based on patient's age to complete this topic Insurance MEDICARE [facility] Care Teams Drop Wire Hanger Relationship Specialty Start Date End Date Deyvi Brantley MD [address] [place] [id number] PCP - General 07/18/13
== END 2025-06-24 09:23 | disposition home or self-care (01) ==
LOC: HO.HGI 08:52
PROVIDERS: PCP Internal Medicine; Visit Provider Internal Medicine Gastroenterology
DX: K86.1 Other chronic pancreatitis (principal)
CPT/HCPCS: 99213

== ENCOUNTER → 2025-06-24 08:51 | Outpatient (BNVA) | payer MEDICARE, SELFPAY | PROVIDERS: PCP Internal Medicine; Visit Provider Internal Medicine Gastroenterology | DX: K86.1 Other chronic pancreatitis (principal); Z87.19 Personal history of other diseases of the digestive system; F17.210 Nicotine dependence, cigarettes, uncomplicated | CPT/HCPCS: 99212 ==